=== PATIENT | female | born 1955 | race Caucasian/White ===

== ENCOUNTER → 2018-12-04 14:55 | Outpatient (CLI) | payer MEDICAID, SELFPAY ==
[2018-12-04 16:16] LABS: Absolute Lymphocyte Count 0.88 X10^3/ul (0.83-4.51); Absolute Neutrophil Count 4.2 X10^3/uL (2.0-7.7); Basophil# 0.01 X10^3/uL; Basophil% 0.2 % (0-1); Eosinophil# 0.17 X10^3/uL; Hematocrit 36.9 % (37-47); Hemoglobin 11.8 g/dl (12.0-15.0); Lymphocyte # 0.88 X10^3/ul (4.0); Lymphocyte % 15.4 % (19-41); Mean Corpuscular Hgb 28.4 pg (27.0-32.0); Mean Corpuscular Volume 88.9 fL (81-99); Mean Platelet Vol. 10.4 fl (6.2-12.0); Monocyte# 0.49 X10^3/uL; Monocyte% 8.6 % (0-10); Neutrophil # 4.16 X10^3/uL (2.7-7.7); Neutrophil % 72.8 % (47-70); Platelet Count 257 K/mm3 (150-450); RBC Distribution Width CV 13.2 % (11.6-14.6); RBC Distribution Width SD 42.7 fl (35.1-43.9); Red Blood Count 4.15 M/mm3 (4.2-5.4); White Blood Count 5.7 K/mm3 (4.4-11.0)
[2018-12-04 16:18] LABS: POSITIVE COUNT NO; POSITIVE DIFFERENTIAL NO; POSITIVE MORPHOLOGY NO
[2018-12-04 16:27] LABS: AST(SGOT) 14 U/L (15-37); Alanine Aminotransfer ALT/SGPT 19 U/L (13-56); Alkaline Phosphatase 83 U/L (45-117); Anion Gap 10 (5-15); BUN 23 mg/dL (7-18); BUN/Creat Ratio 16.1 RATIO (10-20); Bilirubin, Direct < 0.05 mg/dL (0.00-0.30); Calcium,Total 8.3 mg/dL (8.5-10.1); Chloride 109 mmol/L (98-107); Cholesterol 240 mg/dL (200); Creatinine, Serum 1.43 mg/dL (0.55-1.02); EST Glomerular Filtration Rate 40 mL/min (>60); Est Glom Filt Rate - Afr Amer 48 mL/min (>60); Globulin 4.2 g/dL (2.2-4.2); Glucose 132 mg/dL (74-106); High Density Lipoprotein 44 mg/dL; Potassium 3.9 mmol/L (3.5-5.1); Protein, Total 7.2 g/dL (6.4-8.2); Sodium Level 144 mmol/L (136-145); Triglycerides 254 mg/dL; Very Low Density Lipoprotein 51 mg/dL (5-40)
[2018-12-07 05:06] LABS: HEPATITIS B SURFACE AG Negative (Negative); QNTFERON TB Mitogen Value > 10.00 IU/mL (.); QNTFERON TB Nil Value 0.05 IU/mL (.); QNTFERON TB1+ Ag Value 0.04 IU/mL (.); QNTFERON TB2+ Ag Value 0.04 IU/mL (.)
[2018-12-07 09:52] LABS: Hep B Surface Antibodies Non Reactive (.); Hep C Antibodies <0.1 s/co ratio (0.0-0.9); Hepatitis B Core Ab Total Negative (Negative); QNTIFERON TB Positive Criteria Negative (Negative)
== END ==
PROVIDERS: Family Provider Nurse Practitioner Family; PCP Nurse Practitioner Family; Referring Provider Nurse Practitioner Family; Visit Provider Nurse Practitioner Family
DX: L40.0 Psoriasis vulgaris (principal); Z79.899 Other long term (current) drug therapy
CPT/HCPCS: 36415; 80048; 80061; 80076; 85025; 86480; 86704; 86706; 86803; 87340

== ENCOUNTER → 2020-01-08 10:30 | Outpatient (CLI) | payer MEDICAID, SELFPAY ==
[2020-01-08 12:34] LABS: Absolute Lymphocyte Count 0.61 X10^3/uL (0.83-4.51); Absolute Neutrophil Count 2.8 X10^3/uL (2.0-7.7); Basophil# 0.02 X10^3/uL; Basophil% 0.5 % (0-1); Eosinophil# 0.12 X10^3/uL; Hematocrit 29.2 % (37-47); Hemoglobin 8.8 g/dL (12.0-15.0); Lymphocyte # 0.61 X10^3/ul (4.0); Lymphocyte % 15.4 % (19-41); Mean Corp Hgb Conc 30.1 g/dL (32-36); Mean Corpuscular Hgb 29.8 pg (27.0-32.0); Mean Platelet Vol. 11.4 fl (6.2-12.0); Monocyte# 0.42 X10^3/uL; Monocyte% 10.6 % (0-10); NRBC Flagged by Analyzer 0 % (0-5); Neutrophil # 2.78 X10^3/uL (2.7-7.7); Platelet Count 246 K/mm3 (150-450); RBC Distribution Width CV 13.9 % (11.6-14.6); RBC Distribution Width SD 49.7 fl (35.1-43.9); Red Blood Count 2.95 M/mm3 (4.2-5.4)
[2020-01-08 12:52] LABS: Anion Gap 6 (5-15); BUN 22 mg/dL (7-18); Calcium,Total 8.1 mg/dL (8.5-10.1); Chloride 116 mmol/L (98-107); EST Glomerular Filtration Rate 27 mL/min (>60); Est Glom Filt Rate - Afr Amer 32 mL/min (>60); Glucose 125 mg/dL (74-106); Potassium 4.3 mmol/L (3.5-5.1); Sodium Level 143 mmol/L (136-145)
== END ==
PROVIDERS: PCP Family Medicine; Visit Provider Family Medicine
DX: K26.6 Chronic or unspecified duodenal ulcer with both hemorrhage and perforation (principal); N18.3 Chronic kidney disease, stage 3 (moderate)
CPT/HCPCS: 36415; 80048; 85025

== ENCOUNTER → 2020-02-25 09:59 | Outpatient (CLI) | payer MEDICAID, SELFPAY ==
[2020-02-28 09:04] LABS: QNTFERON TB Mitogen Value > 10.00 IU/mL (.); QNTFERON TB Nil Value 0.03 IU/mL (.); QNTFERON TB1+ Ag Value 0.03 IU/mL (.); QNTFERON TB2+ Ag Value 0.03 IU/mL (.)
[2020-02-28 09:13] LABS: QNTIFERON TB Positive Criteria Negative (Negative)
== END ==
PROVIDERS: PCP Family Medicine; Referring Provider Dermatology; Visit Provider Dermatology
DX: L40.0 Psoriasis vulgaris (principal); Z79.899 Other long term (current) drug therapy
CPT/HCPCS: 36415; 86480

== ENCOUNTER → 2020-10-20 12:35 | Outpatient (CLI) | payer MEDICAID, SELFPAY ==
[2020-10-20 15:19] LABS: Absolute Lymphocyte Count 0.83 X10^3/uL (0.83-4.51); Absolute Neutrophil Count 4.1 X10^3/uL (2.0-7.7); Basophil# 0.03 X10^3/uL; Basophil% 0.5 % (0-1); Eosinophil# 0.47 X10^3/uL; Eosinophils% 7.9 % (0-5); Hemoglobin 10.3 g/dL (12.0-15.0); Lymphocyte # 0.83 X10^3/ul (0.83-4.51); Lymphocyte % 13.9 % (19-41); Mean Corp Hgb Conc 29.4 g/dL (32-36); Mean Corpuscular Hgb 26.9 pg (27.0-32.0); Mean Corpuscular Volume 91.4 fL (81-99); Mean Platelet Vol. 11.7 fl (6.2-12.0); Monocyte# 0.52 X10^3/uL; Monocyte% 8.7 % (0-10); NRBC Flagged by Analyzer 0 % (0-5); Neutrophil % 68.7 % (47-70); Platelet Count 242 K/mm3 (150-450); RBC Distribution Width CV 15.2 % (11.6-14.6); RBC Distribution Width SD 50.4 fl (35.1-43.9); Red Blood Count 3.83 M/mm3 (4.2-5.4)
[2020-10-20 15:38] LABS: AST(SGOT) 8 U/L (15-37); Alanine Aminotransfer ALT/SGPT 12 U/L (13-56); Albumin, Serum 3.4 g/dL (3.2-5.0); Alkaline Phosphatase 107 U/L (45-117); Anion Gap 9 (5-15); BUN 34 mg/dL (7-18); BUN/Creat Ratio 20.1 RATIO (10-20); Bilirubin, Direct 0.09 mg/dL (0.00-0.30); Calcium,Total 8.7 mg/dL (8.5-10.1); Chloride 108 mmol/L (98-107); Creatinine, Serum 1.69 mg/dL (0.55-1.02); EST Glomerular Filtration Rate 32 mL/min (>60); Est Glom Filt Rate - Afr Amer 39 mL/min (>60); Globulin 3.3 g/dL (2.2-4.2); Glucose 119 mg/dL (74-106); Potassium 3.9 mmol/L (3.5-5.1); Protein, Total 6.7 g/dL (6.4-8.2); Sodium Level 142 mmol/L (136-145)
[2020-10-20 15:47] LABS: Hepatitis B Surface Antibody Non-Reactive; Hepatitis B Surface Antigen Non-Reactive (Nonreactive)
[2020-10-23 04:07] LABS: QNTFERON TB Mitogen Value 1.83 IU/mL (.); QNTFERON TB Nil Value 0 IU/mL (.); QNTFERON TB1+ Ag Value 0 IU/mL (.); QNTFERON TB2+ Ag Value 0.02 IU/mL (.)
[2020-10-23 07:48] LABS: Hepatitis B Core Ab Total Negative (Negative); QNTIFERON TB Positive Criteria Negative (Negative)
== END ==
PROVIDERS: PCP Family Medicine; Referring Provider Physician Assistant Medical; Visit Provider Physician Assistant Medical
DX: L40.0 Psoriasis vulgaris (principal); Z79.899 Other long term (current) drug therapy
CPT/HCPCS: 36415; 80048; 80076; 85025; 86480; 86704; 86706; 87340

== ENCOUNTER → 2021-10-20 | Outpatient (CLI) | payer MEDICAID, SELFPAY ==
--- NOTE | 2021-10-20 18:14 | CT_ITS ---
We are attempting to reach an attending provider to discuss findings. An addendum with communication details will be sent when the communication is complete. EXAM: CT ABDOMEN WITHOUT INTRAVENOUS CONTRAST CLINICAL INDICATION: ruq mass TECHNIQUE: Helically acquired images were obtained of the abdomen without intravenous contrast. This CT exam was performed using one or more of the following dose reduction techniques: automated exposure control, adjustment of the mA and/or kV according to patient size, and/or use of iterative reconstruction technique. This report was created using [employer] technology. RADIATION DOSE: CTDIvol = 23.76 mGy, DLP = 824.95 mGy-cm COMPARISON: None. FINDINGS: LOWER THORAX: Normal heart size. Mild bilateral coronary artery calcifications. Minimal linear atelectasis or scarring in the right middle lobe and lingula. No significant pericardial effusion. LIVER: Unremarkable. Homogeneous. GALLBLADDER AND BILE DUCTS: Unremarkable. No calcified gallstones. No gallbladder distention or wall edema. No intra- or extrahepatic biliary ductal dilation. PANCREAS: Unremarkable. No focal cystic mass. SPLEEN: Unremarkable. Normal size without focal cystic or solid mass. ADRENALS: Unremarkable. No nodules. KIDNEYS AND URETERS: There is marked intrarenal right hydronephrosis, some dependent curvilinear moderate calcifications in the right kidney, and right renal pelvis and ureter dilatation, right renal pelvis is 3.2 cm AP, right ureter is at least 1.1 cm proximally and 1.3 cm at the pelvic brim. Unremarkable appearance of the left kidney. STOMACH AND BOWEL: No oral or rectal contrast is present. There is mild mixed density material in the stomach. No dilated small bowel. Mild-moderate stool in the proximal half the colon. Mild gas and diverticulosis in the descending colon. No focal inflammatory change. APPENDIX: Part of normal appendix is included. INTRAPERITONEAL SPACE: Unremarkable. No ascites or other fluid collection. No free air. BONES/JOINTS: Degenerative spine changes including marked disc space narrowing, vacuum disc, endplate sclerosis and mild spondylosis at L4-5 and to lesser extent at L3-4. Mild narrowing of the thecal sac at multiple levels including due to moderate annular disc bulge at L3-4. No suspicious lytic or blastic abnormality. SOFT TISSUES: Unremarkable. No discrete abdominal wall hernia. VASCULATURE: Unremarkable. Abdominal aorta is non-dilated. LYMPH NODES: No enlarged lymph nodes. CT/Abdomen without IV Contrast IMPRESSION: 1. Marked intrarenal and moderate extrarenal right hydronephrosis with multifocal nonobstructing calcific densities in the dilated renal calyces,. Suspicion of xanthogranulomatous pyelonephritis, pelvic CT is suggested to evaluate for distal right ureter obstruction. 2. No other suspicious findings. Electronically Signed: Deb Mckay MD at 6:45 EDT ,
== END | disposition home or self-care (01) ==
LOC: CT 18:11
PROVIDERS: PCP Family Medicine; Visit Provider Surgery
DX: R19.01 Right upper quadrant abdominal swelling, mass and lump (principal); R10.9 Unspecified abdominal pain
CPT/HCPCS: 74150

== ENCOUNTER → 2021-10-21 | Outpatient (CLI) | payer MEDICAID, SELFPAY ==
--- NOTE | 2021-10-21 10:26 | CT_ITS ---
STUDY: CT PELVIS WITHOUT CONTRAST REASON FOR EXAM: Female, 65 years old. right ureter stone RADIATION DOSAGE (If Supplied By Facility): CTDIvol = ( 28.21 ) mGy, DLP = ( 884.05 ) mGycm TECHNIQUE: Transaxial imaging of the pelvis was performed with oral contrast, and without intravenous administration of contrast material. Individualized dose optimization techniques were used for this CT. COMPARISON: CT of abdomen dated OCTOBER 20, 2021 FINDINGS: Moderate right hydroureter with a change/cluster of small stones maximally measuring 5.5 mm obstructing stone in the distal aspect of the ureter, several millimeters proximal to the UVJ. Reidentification of a 6 mm stone in the lower pole of the right kidney. Normal urinary bladder. Normal visualized small intestine. There are multiple colonic diverticula of the sigmoid colon consistent with chronic diverticulosis. There is no pelvic fluid. There is no pelvic mass lesion or lymphadenopathy. There is diffuse atherosclerotic calcification of the pelvic arteries with elongation and tortuosity. Normal abdominal wall. There are diffuse degenerative changes of the visualized lumbar spine. CT/Pelvis without IV Contrast IMPRESSION: 1. Moderate right hydroureter with a change/cluster of small stones maximally measuring 5.5 mm obstructing stone in the distal aspect of the ureter, several millimeters proximal to the UVJ. Electronically Signed: Lucas Hamilton MD at 11:09 EDT ,
== END | disposition home or self-care (01) ==
PROVIDERS: PCP Family Medicine; Referring Provider Surgery; Visit Provider Surgery
DX: N20.1 Calculus of ureter (principal); N13.30 Unspecified hydronephrosis
CPT/HCPCS: 72192

== ENCOUNTER 2021-11-04 09:17 | Day surgery (SDC) | payer MEDICAID, SELFPAY ==
--- NOTE | 2021-11-04 | LIP_PTH ---
PATIENT: FREDY CLAYTON LOC: [facility] [place] U#:[id number] AGE/SX: 65/F ROOM: RE11/04/[address]: Dr. Marco Antonio Samuel MD : [id number] BED: DIS: 11/04/2021 SPEC #: [id number] RECD: 11/04/21 13:01 STATUS: INDER REYasir #: [id number] VIRI: 11/04/21 00:[address]: Marco Antonio Samuel DEPT: SURGICAL PATHOLOGY RECD BY: Shai Murphy ENTERED: 11/04/21 13:01 SP TYPE: LIPOMA OTHR DR: Dr. Kandace Katz MD Tissues: Soft tissues, NOS Procedures: Surgery Specimen Level III HEADER OPERATION: Excision lipoma, upper quadrant PRE-OP DIAGNOSIS: Right upper quadrant abdominal mass TISSUE SUBMITTED: Right upper quadrant abdominal lipoma MICROSCOPIC DIAGNOSIS Right upper quadrant abdominal lipoma, excision: Mature adipose tissue, consistent with lipoma. SJ:alexia 11/05/2021 MICROSCOPIC DESCRIPTION Slides are reviewed. GROSS DESCRIPTION Received in fixative is one container labeled with the patient's name and designated right upper quadrant abdominal lipoma. The specimen consists of an irregular piece of adipose tissue measuring 15 x 14 x 4 cm. The external surface is inked. Sections reveal yellow adipose cut surfaces without areas of hemorrhage, necrosis or cystic degeneration. Plant And Equipment Worker sections are submitted in three cassettes. / ASA:alexia 11/04/2021 TC:1 CPT: 26155
[2021-11-04] MEDS: Lactated Ringers 1,000 ML 15 ML IV (09:54)
[2021-11-04 09:55] VITALS: BP 142/90; PULSE 73; RESP 17; TEMP 36.9; O2SAT 97; BMI 45.6
--- NOTE | 2021-11-04 10:20 | PCM.HP.BLA ---
History and Physical Date of Admission: 11/04/21 Intake Intake Visit Reasons: Discuss CT and plan for lipoma removal Chief Complaint: Discuss CT and plan for lipoma removal [place] [employer] Operator Required: No Is patient in pain?: No Allergies Iodinated Contrast Media Allergy (Mild, Verified 10/29/21 09:32) rash codeine Adverse Reaction (Mild, Verified 10/29/21 09:32) gi upset morphine Adverse Reaction (Mild, Verified 10/29/21 09:32) gi upset Medications allopurinol 100 mg tablet tablet PO 10/13/21 [History Confirmed 10/29/21] cholecalciferol (vitamin D3) 125 mcg (5,000 unit) capsule 125 mcg PO BID cap 10/13/21 [History Confirmed 10/29/21] ferrous sulfate 325 mg (65 mg iron) tablet 325 mg PO BID 10/13/21 [History Confirmed 10/29/21] furosemide 20 mg tablet ea PO 10/13/21 [History Confirmed 10/29/21] ixekizumab 80 mg/mL subcutaneous auto-injector ml SUBCUT 10/13/21 [History Confirmed 10/29/21] pantoprazole 40 mg tablet,delayed release ea PO 10/13/21 [History Confirmed 10/29/21] potassium citrate 10 mEq (1,080 mg) tablet,extended release tablet PO 10/13/21 [History Confirmed 10/29/21] sodium bicarbonate 650 mg tablet 650 mg PO DAILY tab 10/13/21 [History Confirmed 10/29/21] PFSH Medical History Edema Fatigue GERD (gastroesophageal reflux disease) History of uterine leiomyoma Hydronephrosis, right Right ureteral calculus Stage 5 chronic kidney disease Surgical History (Updated 10/29/21 @ 09:31 by Tuesday) History of colonoscopy History of hysterectomy History of ureter stent Hx of foot surgery Family History Father Diabetes Hypertension Cancer skin Mother Hypertension Brother Colon cancer Social History Smoking Status: Former smoker how long ago did patient quit smokin years HPI HPI HPI: FREDY CLAYTON, is a 65 F who presents to the office today for follow-up after CT scan. The patient has right upper quadrant mass that is firm and bothering her. She says it is causing a lot of pain. She had CT scan which shows this is likely a lipoma but she also had obstructing distal right ureteral stones. She went to another hospital had a stent placed. ROS General General: No weight change or fatigue HEENT HEENT: No difficulty swallowing Endo Endocrine: No thyroid disease Musc Musculoskeletal: No back problems or arthritis Cardio Cardiovascular: No pacemaker, heart disease, atrial fibrillation, high blood pressure, heart attack, heart stent, palpitations or chest pain Psych Psychiatric: No depression or anxiety Resp Respiratory: No shortness of breath, No cough, No COPD, No asthma and No emphysema Gastro Gastrointestinal: Yes abdominal pain, No nausea or vomiting, No diarrhea, No constipation, No blood in stool, No acid reflux, No hemorrhoids, No ulcers, No gallbladder problem and No black,tarry stools Torres Hematologic: No blood thinners Exam Const General: cooperative Orientation: alert and oriented x3 HENMT Head: normal to inspection Neck Neck: normal visual inspection and full ROM Chest Chest palpation & inspection: normal inspection of the chest Resp Effort & Inspection: normal respiratory effort Auscultation: clear to auscultation bilaterally Cardio Rate: regular rate Rhythm: regular rhythm GI Inspection: non-distended Palpation: soft and nontender Musc Other: Subcutaneous mass in the right quadrant Skin General: no rashes or lesions noted Neuro General: patient alert and patient oriented x3 Extrem General: full ROM Psych Appearance: grossly normal Mental Status: mental status grossly normal Assessment and Plan Assessment and Plan (1) RUQ abdominal mass: Status: Acute Plan - Dr. Marco Antonio Samuel MD: Patient has a right upper quadrant subcutaneous mass. I performed a CT scan which did not show any hernia. Patient likely has a large lipoma in the right upper quadrant. It measures approximately 15 cm in diameter. I recommend removing this in the operating room under general anesthesia. I discussed the risks of bleeding and infection and seroma formation. Patient understands all the risks. All questions were answered. Marco Antonio Samuel MD Pager: [facility] [address] [place] [address], [address] [place] [address] Office: I have re-examined the patient. There are no clinical changes since date of exam.
[2021-11-04] MEDS: Cefazolin 2 GM in 0.9% Normal Saline 100 ML IV (10:45)
[2021-11-04 11:32] VITALS: BP 128/82; BP 142/90; PULSE 69; RESP 16; TEMP 36.9; O2SAT 93
--- NOTE | 2021-11-04 11:43 | OP.PCM_ITS ---
Problems Associated Problem List Diagnoses (1) RUQ abdominal mass: Report of Operation Date of Procedure: 11/04/21 Pre-Operative Diagnosis: Right upper quadrant mass Post-Operative Diagnosis: Same Surgery/Procedure Performed:: Excision of subcutaneous mass of the right upper quadrant Specimen's removed: Right upper quadrant subcutaneous mass Description of Procedure: Patient was brought back to the operating room and general anesthesia induced. The right upper quadrant was prepped and draped in usual sterile fashion. An incision was marked and then injected with local anesthetic. An incision was made with scalpel and deepened to the subcutaneous tissue. The lipoma was bluntly dissected free and excised. It measured 15 cm diameter. The cavity was irrigated and suctioned dry and hemostasis was obtained using electrocautery. The incision was then closed with interrupted 3- 0 Vicryl suture and running 4-0 Monocryl suture. Dermabond was applied. Patient was then awakened and taken to PACU in stable condition. Admit VTE Documentation VTE Mechan Device Prophylaxis: SCD's
[2021-11-04 11:45] VITALS: BP 138/78; BP 142/90; PULSE 57; RESP 16; O2SAT 95
--- NOTE | 2021-11-04 11:48 | EX.PCM.DISCH ---
Discharge Instructions Procedure General Surgery Diet Discharge Diet: Light diet - advance as tolerated Activity Discharge Activity: May Drive May shower in (days): 1 Lifting Restrictions: none Dressing / Incision Call your doctor if your incision/area has: Continuous Slow Oozing, Sudden Increased Bleeding, Increased Pain/ Swelling, Increased Redness, Foul Smelling Discharge and Swelling at the incision site Call your doctor if you observe: Fever of 101 or Higher Suture Line Care: Avoid Pulling/Pushing and Avoid Pinching/Bending Cleanse incision/area with: Soap & Water Follow Up Care Please Follow Up With: Marco Antonio Samuel MD When: Please call to schedule 2 week follow up appointment. [phone] Test Results: Test results from this visit will be discussed in further detail at your follow-up appointment, if applicable. Discharge Plan Admission Attending Provider: Marco Antonio Samuel Primary Care Provider: Kandace Katz Instructions Additional Instructions / Restrictions: Tylenol and Ibuprofen for pain Discharge Orders/Prescriptions Prescriptions: No Action potassium citrate 10 mEq (1,080 mg) tablet extended release 20 meq PO TID RF: 0 sodium bicarbonate 650 mg tablet 650 mg PO TID RF: 0 furosemide 20 mg tablet 20 mg PO PRN PRN (Reason: Edema) RF: 0 allopurinol 100 mg tablet 100 mg PO DAILY RF: 0 pantoprazole 40 mg tablet,delayed release (DR/EC) 40 mg PO DAILY RF: 0 Taltz Autoinjector 80 mg/mL auto-injector 80 mg subcut QMONTH RF: 0 cholecalciferol (vitamin D3) 125 mcg (5,000 unit) capsule 125 mcg PO BID RF: 0 ferrous sulfate 325 mg (65 mg iron) tablet 325 mg PO BID RF: 0 Referrals / Follow Up: Kandace Katz MD [Primary Care Provider] - Disposition Disposition (needs filled in before D/C Order can be placed): Home, Self Care
[2021-11-04 12:00] VITALS: BP 130/80; BP 142/90; PULSE 59; RESP 16; O2SAT 94
[2021-11-04 12:25] VITALS: BP 139/80; BP 142/90; PULSE 57; RESP 16; TEMP 36.5; O2SAT 96
[2021-11-04 13:04] VITALS: BP 128/62; BP 142/90; PULSE 62; RESP 16; O2SAT 98
== END 2021-11-04 13:05 | disposition home or self-care (01) ==
LOC: SDC 09:17 → AC 09:18
PROVIDERS: PCP Family Medicine; Referring Provider Surgery; Visit Provider Surgery
PROC: (CPT 15830; principal; 2021-11-04 10:45)
DX: D17.39 Benign lipomatous neoplasm of skin and subcutaneous tissue of other sites (principal); N18.5 Chronic kidney disease, stage 5; Z91.041 Radiographic dye allergy status; Z87.891 Personal history of nicotine dependence; K21.9 Gastro-esophageal reflux disease without esophagitis
CPT/HCPCS: 15830; 00400; 87426; 88304; J7120; J2405

== ENCOUNTER → 2022-06-10 | Outpatient (CLI) | payer MEDICARE, MEDICAID, SELFPAY ==
--- NOTE | 2022-06-10 11:05 | RAD_ITS ---
STUDY: X-RAY CHEST REASON FOR EXAM: Female, 66 years old. COUGH TECHNIQUE: PA and lateral views of the chest. COMPARISON: None. FINDINGS: The lungs are clear and expanded. There is no demonstrated pleural abnormality. Normal size heart. Normal mediastinum and jeanne. Normal visualized pulmonary arteries. Normal visualized aortic arch and descending thoracic aorta. There is demineralization of the osseous structures. There are diffuse degenerative changes of the visualized thoracic spine. Normal visualized ribs, clavicles, and shoulders. There is no demonstrated abnormality of the visualized soft tissue structures of the upper abdomen. RAD/Chest PA and Lateral IMPRESSION: Degenerative changes, as described above. No demonstrated acute cardiopulmonary process. Electronically Signed: Jaison Sanford MD at 9:23 EST ,
== END | disposition home or self-care (01) ==
PROVIDERS: PCP Family Medicine; Referring Provider Family Medicine; Visit Provider Family Medicine
DX: J45.909 Unspecified asthma, uncomplicated (principal); R05.9 Cough, unspecified
CPT/HCPCS: 71046

== ENCOUNTER → 2022-10-14 | Outpatient (CLI) | payer MEDICARE, MEDICAID, SELFPAY ==
--- NOTE | 2022-10-14 09:07 | BI_ITS ---
MAMMOGRAPHY - BILATERAL DIAGNOSTIC REASON FOR EXAM: Female, 66 years old. Painful lump at the 2:00 position of the left breast following a fall. PERTINENT HISTORY: Non-contributory. TECHNIQUE: Digital bilateral breast amanda (3D mammographic acquisition) in the CC and MLO projections. 2-D mediolateral oblique (MLO) and craniocaudad (CC) views of both breasts were obtained. CAD: Full Field Digital Mammography with Computer Added Detection was performed. COMPARISON: No comparison mammograms available at this time. If any prior films become available, an addendum to this report can be generated. FINDINGS: Breast Composition: There are scattered areas of fibroglandular density. There are no dominant masses or suspicious calcifications. Asymmetry of breast tissue were more breast tissue is seen in the upper outer aspect of the left breast as compared to the right side. This corresponds to the palpable area. Bilateral secretory calcifications. Benign-appearing secretory calcifications. No other significant abnormalities are identified. BI/DIAG MAMM W/CAD, BILAT IMPRESSION: Breast asymmetry were more breast tissue is seen in the upper outer quadrant of the left breast corresponding to the area of trauma. Correlation with ultrasound is recommended. ASSESSMENT CATEGORY: BIRADS Category 0: Incomplete. Need additional imaging evaluation. A letter regarding these results will be sent to the patient by the facility within 30 days. Approximately 10% of breast cancers are not detected by mammography. A normal mammogram should not delay biopsy of a clinically suspicious abnormality. Electronically Signed: Liborio Lombardo MD at 12:12 EDT ,
--- NOTE | 2022-10-14 09:07 | US_ITS ---
STUDY: ULTRASOUND BREAST - LEFT REASON FOR EXAM: Female, 66 years old. Palpable lump left breast. TECHNIQUE: Axial and longitudinal images of the LEFT breast were performed with a high resolution ultrasound transducer. # OF IMAGES: 25 COMPARISON: Comparison is made with prior mammogram done earlier in the day. FINDINGS: LEFT Breast: The palpable lump corresponds to dense parenchymal tissue. 3 small adjacent cysts are seen. The largest measures 8 mm x 7 mm x 4 mm. US/Breast Limited Unilateral IMPRESSION: 3 subcentimeter cysts are seen in the region of the palpable lump. ASSESSMENT CATEGORY: BIRADS Category 2: Benign. A letter regarding these results will be sent to the patient by the facility within 30 days. Electronically Signed: Liborio Lombardo MD at 12:13 EDT ,
== END | disposition home or self-care (01) ==
LOC: OPBI 09:04
PROVIDERS: PCP Family Medicine; Referring Provider Family Medicine; Visit Provider Family Medicine
DX: N64.4 Mastodynia (principal)
CPT/HCPCS: 76642; 77062; 77066; G0279

== ENCOUNTER → 2022-10-27 | Outpatient (CLI) | payer MEDICARE, MEDICAID, SELFPAY ==
[2022-10-29 15:08] LABS: Hepatitis B Core Ab Total Negative (Negative); QNTFERON TB Mitogen Value > 10.00 IU/mL (.); QNTFERON TB Nil Value 0.01 IU/mL (.); QNTFERON TB1+ Ag Value 0.03 IU/mL (.); QNTFERON TB2+ Ag Value 0.01 IU/mL (.); QNTIFERON TB Positive Criteria Negative (Negative)
== END | disposition home or self-care (01) ==
PROVIDERS: PCP Family Medicine; Referring Provider Physician Assistant Medical; Visit Provider Physician Assistant Medical
DX: L40.0 Psoriasis vulgaris (principal); Z79.899 Other long term (current) drug therapy
CPT/HCPCS: 36415; 86480; 86704

== ENCOUNTER → 2023-06-25 | Outpatient (CLI) | payer MEDICARE, SELFPAY ==
--- OUTSIDE RECORDS SUMMARY | 2023-06-25 07:41 | XMS RPT_ITS | CCD ---
Author Name Unknown Address [address] [place] [address] Organization [facility] Care Team Providers Care Fleet Salesperson Name Role Phone LORENA BEASLEY Attending Unavailable MIEDEL, KANDACE E Primary Care Unavailable FERNANDO TO Attending Unavailable MIEDEL, KANDACE E Primary Care Unavailable FERNANDO TO Attending Unavailable MIEDEL, KANDACE E Primary Care Unavailable Miedel, Kandace E Primary Care Provider Unavailab le Miedel, Kandace E Primary Care Provider Unavailab le SAVANNA LACEY Admitting Unavailable SAVANNA LACEY Referring Unavailable MIEDEL, KANDACE E Primary Care Unavailable MIEDEL, KANDACE E Primary Care Unavailable MIEDEL, KANDACE E Primary Care Unavailable HUSEYIN, MESSI Attending Unavailable HUSEYIN, MESSI Admitting Unavailable MIEDEL, KANDACE E Primary Care Unavailable HUSEYIN, MESSI Attending Unavailable HUSEYIN, MESSI Admitting Unavailable Unavailable Primary Care Provider UnavailKandace Calero MD Primary Care Provider ELIAS SEGAL Admitting UnavailELIAS Levine Attending Unavailramana e PORSHA TRAMMELL Attending Unavailable MIEDEL, KANDACE E Primary Care Unavailable PORSHA TRAMMELL Admitting Unavailable PORSHA TRAMMELL Attending Unavailable MIEDEL, KANDACE E Primary Care Unavailable PORSHA TRAMMELL Attending Unavailable MIEDEL, KANDACE E Primary Care Unavailable MIEDEL, KANDACE E Primary Care Unavailable PORSHA TRAMMELL Referring Unavailable PORSHA TRAMMELL Attending Unavailable MIEDEL, KANDACE E Primary Care Unavailable ALISHA NICKERSON MD Primary Care Unava ilable MIEDEL, KANDACE Consulting Unavailable BUCKTOWARSINGALISHA MD Attending Unava ilable BUCKTOWARSING, ALISHA SAHU Admitting Unava ilable PROVIDER, UNKNOWN Consulting Unavailable PROVIDER, UNKNOWN Consulting Unavailable MIEDEL, KANDACE Consulting Unavailable BUCKTOWARSINGALISHA MD Attending Unava ilable BUCKTOWARSINALISHA Mooney MD Admitting Unava ilable BUCKTOWARSINALISHA Mooney MD Primary Care Unava ilable PROVIDER, UNKNOWN Consulting Unavailable PROVIDER, UNKNOWN Consulting Unavailable BUCKTOWARSINALISHA Mooney MD Attending Unava ilable BUCKTOWARSINGALISHA MD Admitting Unava ilable BUCKTOWARSING, ALISHA SAHU Primary Care Unava ilable MIEDEL, KANDACE Consulting Unavailable PROVIDER, UNKNOWN Consulting Unavailable PROVIDER, UNKNOWN Consulting Unavailable MIEDEL, KANDACE Consulting Unavailable MIEDEL, KANDACE Referring Unavailable DALE MIR DO Admitting Unavailable DALE MIR DO Primary Care Unavailable DALE MIR DO Attending Unavailable PROVIDER, UNKNOWN Consulting Unavailable PROVIDER, UNKNOWN Consulting Unavailable ALISHA NICKERSON MD Primary Care Unava ilable MIEDEL, KANDACE Consulting Unavailable BUCKTOWARSINALISHA Mooney MD Attending Unava ilable BUCKTOWARSING, ALISHA SAHU Admitting Unava ilable PROVIDER, UNKNOWN Consulting Unavailable PROVIDER, UNKNOWN Consulting Unavailable Allergies Allergy Classification Reported Allergen(s) Allergy Type Date of Onset Reaction(s) Facility (18 sources) Codeine; Translations: [Unknown] Drug Allergy 9 GI Intolerance [facility] Repository (14 sources) Morphine; Translations: [MORPHINE] Drug Allergy 9 GI Intolerance [facility] (13 sources) Ct: Iodinated Contrast- Oral And Iv Dye; Translations: [CT: IODINATED CONTRAST- ORAL AND IV DYE] Propensity to adverse reactions to drug 9 Hives [facility] (1 source) Latex; Translations: [LATEX] Propensity to adverse reactions to drug (disorder) 3 [facility] Repository (1 source) GADOLINIUM-CONT AINING CONTRAST MEDIA; Translations: [GADOLINIUM-CON TAINING CONTRAST MEDIA] Propensity to adverse reactions to drug (disorder) 3 [facility] Repository (1 source) WOOL; Translations: [WOOL] Propensity to adverse reactions to drug (disorder) [facility] Repository (1 source) Contrast media Drug allergy (disorder) [facility] Repository (1 source) Morphine Drug Allergy [facility] Repository Medications Current Medications Medication Drug Class(es) Dates Sig (Normalized) Sig (Original) oxyCODONE hydrochloride 5 mg oral tablet (2 sources) Opioid Agonist Start: 06-22-2019 End: 06-26-2019 take 1 tablet by mouth every four hours as needed for pain oxyCODONE (ROXICODONE) 5 MG immediate release tablet Indications: Postoperative pain Take 1 (one) tablet (5 mg total) by mouth every 4 (four) hours as needed for pain (Days supply per fill: 5) . 12 tablet 0 06/23/2019 06/26/2019 Active pantoprazole 40 mg delayed release oral tablet (15 sources) Proton Pump Inhibitor Start: 07-29-2020 End: 08-28-2020 take 1 tablet by mouth once daily pantoprazole (PROTONIX) 40 MG tablet Take 1 (one) tablet (40 mg total) by mouth daily . 30 tablet 12 07/29/2020 Active Completed/Discontinued Medications Medication Drug Class(es) Dates Sig (Normalized) Sig (Original) acetaminophen 325 mg oral tablet (3 sources) Start: 07-29-2020 End: 07-29-2020 take 1 tablet by mouth every six hours as needed acetaminophen (TYLENOL) tablet 650 mg Problems Active Problems Problem Classification Problem Date Documented Da te Episodic/Chronic Acute and unspecified renal failure (2 sources) Acute injury of kidney; Translations: [Acute kidney failure, unspecified] 06-16-2019 Episodic Acute and unspecified renal failure (10 sources) Acute injury of kidney; Translations: [VICKI (acute kidney injury)] 06-16-2019 Calculus of urinary tract (20 sources) Kidney stone; Translations: [Calculus in urethra] Onset: 07-07-2022 06-16-2019 Episodic Esophageal disorders (1 source) Gastro-esophageal reflux disease with esophagitis; Translations: [Gastroesophageal reflux disease with esophagitis and hemorrhage] Chronic Gastroduodenal ulcer (except hemorrhage) (12 sources) Duodenal ulcer with perforation; Translations: [Chronic or unspecified duodenal ulcer with perforation] 06-16-2019 Chronic Genitourinary symptoms and ill-defined conditions (1 source) Urge incontinence; Translations: [Sensory urge incontinence] Onset: 11-30-2022 Chronic Immunizations and screening for infectious disease (1 source) Contact with and (suspected) exposure to other viral communicable diseases; Translations: [Contact with or exposure to viral disease] Episodic Other aftercare (2 sources) Surgical follow-up; Translations: [Follow-up examination, following other surgery] Episodic Residual codes; unclassified (2 sources) Finding related to awareness of diagnosis; Translations: [Other specified health status] 06-16-2019 Episodic Unclassified (10 sources) Finding related to awareness of diagnosis; Translations: [Patient denies medical problems] 06-16-2019 Unclassified (1 source) Wound finding; Translations: [Visit for wound check] Past or Other Problems Problem Classification Problem Date Documented Da te Episodic/Chronic Gastroduodenal ulcer (except hemorrhage) (12 sources) Duodenal perforation; Translations: [Perforation of intestine (nontraumatic)] Onset: 06-15-2019 06-15-2019 Episodic Other diseases of kidney and ureters (1 source) Hydronephrosis with renal and ureteral calculous obstruction; Translations: [Hydronephrosis concurrent with and due to calculi of kidney and ureter] Onset: 07-06-2022 Episodic Other gastrointestinal disorders (1 source) Perforation of intestine; Translations: [Bowel perforation (HCC)] Episodic Other nervous system disorders (1 source) Postoperative pain ; Translations: [Postoperative pain] Episodic Results Test Name Value Interpretation Reference Range Facil ity Vital Signs Date Time Vital Sign Value Performing Clinician Ophelia garcia 07-29-2020 13:20-0500 BP Diastolic 84 mm[Hg] [facility] 07-29-2020 13:20-0500 BP Systolic 130 mm[Hg] [facility] 07-29-2020 13:20-0500 Pulse (Heart Rate) 71 /min [facility] 07-29-2020 13:20-0500 Pulse Oximetry 99 % [facility] 07-29-2020 13:20-0500 Respiratory Rate 15 /min [facility] 07-29-2020 13:00-0500 Body Temperature 97.7 [degF] [facility] 07-29-2020 11:28-0500 BMI (Body Mass Index) 41.63 kg/m2 [facility] 07-29-2020 11:28-0500 Body weight 106.59 kg [facility] 07-29-2020 11:28-0500 Height 160 cm [facility] 02-21-2020 15:31-0400 BP Diastolic 86 mm[Hg] [facility] 02-21-2020 15:31-0400 BP Systolic 122 mm[Hg] [facility] 02-21-2020 15:31-0400 Pulse (Heart Rate) 61 /min [facility] 02-21-2020 15:31-0400 Pulse Oximetry 96 % [facility] 02-21-2020 15:31-0400 Respiratory Rate 16 /min [facility] 02-21-2020 15:15-0400 Body Temperature 97.2 [degF] [facility] 02-21-2020 13:48-0400 BMI (Body Mass Index) 40.03 kg/m2 [facility] 02-21-2020 13:48-0400 Body weight 102.51 kg [facility] 02-21-2020 13:48-0400 Height 160 cm [facility] 07-10-2019 10:09-0500 BMI (Body Mass Index) 40.51 kg/m2 [facility] 07-10-2019 10:09-0500 Body Temperature 98.29 [degF] [facility] 07-10-2019 10:09-0500 Body weight 103.74 kg [facility] 07-10-2019 10:09-0500 BP Diastolic 73 mm[Hg] [facility] 07-10-2019 10:09-0500 BP Systolic 115 mm[Hg] [facility] 07-10-2019 10:09-0500 Pulse (Heart Rate) 84 /min [facility] 07-10-2019 10:09-0500 Respiratory Rate 14 /min [facility] 06-23-2019 12:45-0500 Respiratory Rate 14 /min [facility] 06-23-2019 07:25-0500 Body Temperature 97.5 [degF] [facility] 06-23-2019 07:25-0500 BP Diastolic 60 mm[Hg] [facility] 06-23-2019 07:25-0500 BP Systolic 91 mm[Hg] [facility] 06-23-2019 07:25-0500 Pulse (Heart Rate) 62 /min [facility] 06-23-2019 07:25-0500 Pulse Oximetry 96 % [facility] 06-15-2019 18:39-0500 BMI (Body Mass Index) 38.97 kg/m2 [facility] 06-15-2019 18:39-0500 Body weight 99.79 kg [facility] 06-15-2019 18:39-0500 Height 160 cm Mak [facility] Encounters Encounter Date Encounter Type Care Provider Facility Start: 03-11-2023 End: 03-11-2023 ambulatory ALISHA SAHU [facility] Start: 01-11-2023 End: 01-11-2023 ambulatory PORSHA TRAMMELL Facility:[id number] Start: 11-30-2022 End: 11-30-2022 ambulatory PORSHA TRAMMELL Facility:[id number] Start: 09-03-2022 End: 09-03-2022 ambulatory [facility] Start: 08-26-2022 End: 08-26-2022 ambulatory PORSHA TRAMMELL Facility:[id number] Start: 08-09-2022 End: 08-09-2022 ambulatory PORSHA TRAMMELL Facility:[id number] Start: 07-06-2022 End: 07-07-2022 ambulatory ELIAS SEGAL Facility:[id number] Start: 07-05-2022 End: 07-06-2022 Emergency department patient visit [facility] Start: 05-07-2022 End: 05-07-2022 ambulatory ALISHA SAHU [facility] Start: 03-16-2022 End: 03-16-2022 ambulatory ALISHA SAHU [facility] Start: 11-12-2021 End: 05-19-2022 Subsequent hospital visit by physician Porsha Trammell MD Work Phone: [facility] Procedures Date Procedure Procedure Detail Performing Clinician Start: 09-03-2022 Urinalysis BHAVNISH B UCKTOWARSING Plan of Treatment Date Care Activity Detail Author Start: 02-25-2022 Influenza vaccination Sequential Influenza Vaccine (#1) [facility] Start: 2021 Fall risk assessment Falls Risk Assessment [facility] Start: 2021 Pneumococcal Vaccine: Age 65+ (1 - PCV) Pneumococcal Vaccine: Age 65+ (1 - PCV) [facility] Start: 10-26-2020 Esophagogastroduodenoscopy EGD [facility] Start: 08-05-2020 COVID-19 Vaccine (2 - Moderna series) COVID-19 Vaccine (2 - Moderna series) [facility] Start: 08-05-2020 COVID-19 Vaccine (2 of 2 - Moderna series) COVID-19 Vaccine (2 of 2 - Moderna series) [facility] Start: 07-29-2020 End: 07-29-2020 Hospital Encounter [facility] Endoscopy Immunizations Immunization Date Immunization Notes Care Provider Chichi mccormick 09-22-2018 influenza, seasonal, injectable Yves d Maryamether [facility] Payers Date Payer Category Payer Medicaid [id number] 2022 Unknown [id number] 2019 Medicaid U[employer] MANAGED MEDI CAID UHC MEDICAID COMMUNITY PLAN [id number] 2019-Present [id number] 2019 Medicaid [id number] 2019 Medicaid [employer]HC MANAGED MEDI CAID UHC MEDICAID COMMUNITY PLAN [id number] 2019-Present [phone] [address] [place] [address] [id number] 1956 Unknown [id number] 1955 Unknown [id number] 1956 Unknown [id number] 1956 Unknown [id number] 1956 Unknown [id number] 1956 Unknown [id number] 1956 Unknown [id number] 1956 Unknown [id number] Medicare [id number] Private Health Insurance [id number] Social History Date Type Detail Facility Start: 06-15-2019 End: 07-10-2019 Tobacco smoking status NHIS Former smoker [facility] Start: 07-10-2019 End: 08-05-2021 Alcohol intake Ex-drinker (finding) [facility] Start: 06-15-2019 Alcohol Comment rare [facility] Start: 1955 [facility] -2 (event) Unable to assess [facility] Start: 06-15-2019 End: 02-21-2020 Tobacco use and exposure Never used [facility] Exposure to SARS-CoV -2 (event) Not sure [facility] History of tobacco use Current smoker [facility] Clinical Notes 10-23-2021 to 01-11-2023 Note Date & Type Note Facility 01-11-2023 Note HNO ID: [id number] Author: Porsha Trammell MD Service: ? Author Type: Physician Type: Progress Notes Filed: 01/11/2023 3:35 PM Note Text: NEW PATIENT CONSULTATION The patient is here for follow-up of urgency urinary incontinence and kidney stone. The oxybutynin XR has helped tremendously. LAB RESULTS Creatinine Date Value Ref Range Status 10/23/2021 1.56 (H) 0.510 - 0.950 MG/DL Final Comment: Patients receiving either N-Acetylcysteine (NAC) or Metamizole prior to venipuncture, may have falsely depressed results. GLUCOSE UA (POCT) (mg/dL) Date Value 08/09/2022 Negative BILIRUBIN UA (POCT) (no units) Date Value 08/09/2022 Negative KETONE UA (POCT) (mg/dL) Date Value 08/09/2022 Negative SPECIFIC GRAVITY UA (POCT) (no units) Date Value 08/09/2022 1.020 HEMOGLOBIN/BLOOD UA (POCT) (no units) Date Value 08/09/2022 Large (A) PH UA (POCT) (no units) Date Value 08/09/2022 7.0 PROTEIN UA (POCT) (mg/dL) Date Value 08/09/2022 >=300 (A) UROBILINOGEN UA (POCT) (E.U./dL) Date Value 08/09/2022 0.2 NITRITE UA (POCT) (no units) Date Value 08/09/2022 Negative LEUKOCYTES UA (POCT) (no units) Date Value 08/09/2022 Small (A) COLOR UA (POCT) (no units) Date Value 08/09/2022 Yellow CLARITY UA (POCT) (no units) Date Value 08/09/2022 Clear ] REVIEW OF SYSTEMS (10) ALLERGIC See allergies listed above GENERAL: No unintentional weight loss, healthy appearing female in no distress RESPIRATORY: Negative for cough, wheezing or shortness of breath. CARDIOVASCULAR: No leg swelling/edema. 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 NEUROLOGIC:alert and oriented SKIN warm and dry PSYCHIATRIC: Normal affect and mood The remainder of the ROS was reviewed and is negative. MEDICATIONS: SKYRIZI 150 mg/mL injection oxybutynin ER (DITROPAN XL) 10 mg 24 hr tablet Take 1 tablet by mouth once daily. potassium citrate ER (UROCIT-K) 10 mEq (1,080 mg) Take 1,080 mg by mouth three times daily. Takes 2 tabs 3 x day sodium bicarbonate 650 mg tablet Take 650 mg by mouth three times daily. ferrous sulfate 325 mg (65 mg iron) tablet Take 325 mg by mouth twice daily. Cholecalciferol, Vitamin D3, 125 mcg (5,000 unit) cap Take 5,000 Units by mouth twice daily. Last dose 08/20/22 furosemide (LASIX) 20 mg tablet Take 20 mg by mouth as needed. allopurinol (ZYLOPRIM) 100 mg tablet Take 100 mg by mouth every morning. pantoprazole DR (PROTONIX) 40 mg tablet Take 40 mg by mouth every morning. ALLERGIES Allergen Reactions Codeine GI Upset Gadolinium-Containi* Hives Latex Rash Morphine GI Upset Wool Rash ACTIVE PROBLEM LIST Gastroesophageal Reflux Disease Vicki (Acute Kidney Injury) (Hcc) Morbidly Obese (Hcc) Calculus of Ureter Obesity, Class III, BMI >= 40 HISTORIES PAST MEDICAL HISTORY Diagnosis Date Chronic kidney disease, stage IV (severe) ([facility]) Dr. Nickerson Kidney stones PONV (postoperative nausea and vomiting) PAST SURGICAL HISTORY Procedure Laterality Date COLON SURGERY HX repair rupture CYSTOSCOPY several times ESWL F TOTAL ABDOMINAL HYSTERECTOMY FRACTURE SURGERY Right heel INCISION AND DRAINAGE OF WOUND (IANDD) HX upper left thigh LIPOMA (LARGE) upper abd. PT ED OBSTETRICS AND GYNECOLOGY History reviewed. No pertinent family history. SOCIAL HISTORY Social History Tobacco Use Smoking status: Former Packs/day: 0.50 Years: 20.00 Total pack years: 10.00 Types: Cigarettes Quit date: 2006 Years since quittin.5 Smokeless tobacco: Never Vaping Use Vaping Use: Never used Substance Use Topics Alcohol use: Yes Comment: very seldom Drug use: Never Ht 160 cm (5' 3 ) BMI 43.75 kg/m? PHYSICAL EXAM:(8) General Appearance: Well appearing, alert, in no acute distress, well-hydrated, well nourished.. Skin: Skin color, texture, turgor normal. Neck: no gross adenopathy; thyroid symmetric. Cardiovascular no peripheral edema Respiratory: Normal respritory effort no wheezing Musculoskeletal: nl gait and range of motion Extremities: No deformities, edema, cyanosis. Neurologic alert and oriented Psych nl affect and mood ASSESSMENT/PLAN: 1. Sensory urge incontinence - ICD9: 788.31, ICD10: N39.41 (primary diagnosis) Continue oxybutynin XR (started November 2022) - BLADDER SCAN - BLADDER SCAN 2. Kidney stone - ICD9: 592.0, ICD10: N20.0 Check KUB in 6 months - XR ABDOMEN 1V SUPINE 3. Recurrent urinary tract infections-continue self start Macrobid Porsha Trammell MD [facility] 11-30-2022 Note HNO ID: [id number] Author: Porsha Trammell MD Service: ? Author Type: Physician Type: Progress Notes Filed: 11/30/2022 2:56 PM Note Text: ESTABLISHED PATIENT OFFICE VISIT F/u kidney stones. No colic since her last visit. She does have UUI. My review of the KUB showed no stones. LAB RESULTS Creatinine Date Value Ref Range Status 10/23/2021 1.56 (H) 0.510 - 0.950 MG/DL Final Comment: Patients receiving either N-Acetylcysteine (NAC) or Metamizole prior to venipuncture, may have falsely depressed results. No results found for: PSA, PSASC GLUCOSE UA (POCT) (mg/dL) Date Value 08/09/2022 Negative BILIRUBIN UA (POCT) (no units) Date Value 08/09/2022 Negative KETONE UA (POCT) (mg/dL) Date Value 08/09/2022 Negative SPECIFIC GRAVITY UA (POCT) (no units) Date Value 08/09/2022 1.020 HEMOGLOBIN/BLOOD UA (POCT) (no units) Date Value 08/09/2022 Large (A) PH UA (POCT) (no units) Date Value 08/09/2022 7.0 PROTEIN UA (POCT) (mg/dL) Date Value 08/09/2022 >=300 (A) UROBILINOGEN UA (POCT) (E.U./dL) Date Value 08/09/2022 0.2 NITRITE UA (POCT) (no units) Date Value 08/09/2022 Negative LEUKOCYTES UA (POCT) (no units) Date Value 08/09/2022 Small (A) COLOR UA (POCT) (no units) Date Value 08/09/2022 Yellow CLARITY UA (POCT) (no units) Date Value 08/09/2022 Clear ] ALLERGIES Allergen Reactions Codeine GI Upset Gadolinium-Containi* Hives Latex Rash Morphine GI Upset Wool Rash MEDICATIONS: potassium citrate ER (UROCIT-K) 10 mEq (1,080 mg) Take 1,080 mg by mouth three times daily. Takes 2 tabs 3 x day sodium bicarbonate 650 mg tablet Take 650 mg by mouth three times daily. ferrous sulfate 325 mg (65 mg iron) tablet Take 325 mg by mouth twice daily. Cholecalciferol, Vitamin D3, 125 mcg (5,000 unit) cap Take 5,000 Units by mouth twice daily. Last dose 08/20/22 furosemide (LASIX) 20 mg tablet Take 20 mg by mouth as needed. allopurinol (ZYLOPRIM) 100 mg tablet Take 100 mg by mouth every morning. pantoprazole DR (PROTONIX) 40 mg tablet Take 40 mg by mouth every morning. ixekizumab (TALTZ AUTOINJECTOR) 80 mg/mL pen Inject 80 mg subcutaneously once every month. Last dose 07/28/22 (Patient not taking: Reported on 11/30/2022) REVIEW OF SYSTEMS GENERAL:no unintentional weight loss, malaise or fevers. NEUROLOGIC: pt is alert and oriented GASTROINTESTINAL: No nausea, vomiting, or diarrhea GENITOURINARY: No history of dysuria, frequency or incontinence MUSCULOSKELETAL: Negative for joint pain or swelling, back pain or muscle pain SKIN: Negative for lesions, rash, and itching. ACTIVE PROBLEM LIST Gastroesophageal Reflux Disease Vicki (Acute Kidney Injury) ([facility]) Morbidly Obese (Hcc) Calculus of Ureter Obesity, Class III, BMI >= 40 HISTORIES PAST MEDICAL HISTORY Diagnosis Date Chronic kidney disease, stage IV (severe) ([facility]) Dr. Nickerson Kidney stones PONV (postoperative nausea and vomiting) No family history on file. PAST SURGICAL HISTORY Procedure Laterality Date COLON SURGERY HX repair rupture CYSTOSCOPY several times ESWL F TOTAL ABDOMINAL HYSTERECTOMY FRACTURE SURGERY Right heel INCISION AND DRAINAGE OF WOUND (IANDD) HX upper left thigh LIPOMA (LARGE) upper abd. PT ED OBSTETRICS AND GYNECOLOGY SOCIAL HISTORY Social History Tobacco Use Smoking status: Former Packs/day: 0.50 Years: 20.00 Pack years: 10.00 Types: Cigarettes Quit date: 2006 Years since quittin.4 Smokeless tobacco: Never Vaping Use Vaping Use: Never used Substance Use Topics Alcohol use: Yes Comment: very seldom Drug use: Never PHYSICAL EXAMINATION General appearance: Well appearing, alert, in no acute distress, well-hydrated, well nourished Psych Alert and oriented to person, place and time Genitourinary: MALE EXAM: ASSESSMENT/PLAN: 1. Sensory urge incontinence - ICD9: 788.31, ICD10: N39.41 I will trial Oxybutynin XR 10 mg F/u in 6 weeks 2. Kidney stone- KERRY - OXYBUTYNIN CHLORIDE ER 10 MG TABLET,EXTENDED RELEASE 24 HR Porsha Trammell MD [facility] 11-30-2022 Note HNO ID: [id number] Author: RT Julian(R) Service: Radiology Author Type: Technologist Type: Progress Notes Filed: 11/30/2022 1:25 PM Note Text: Summary: XRAY Radiology Service Progress Note PATIENT NAME: Felipa Lima DATE OF SERVICE: November 30, 2022 TIME: 1:25 PM PATIENT IDENTITY VERIFICATION COMPLETED USING TWO (2) IDENTIFIERS: Name and Date of confirmed by patient verbally. FALL SCREENING: Has the patient had 2 falls in the last year or 1 fall with injury or currently using an Ambulatory Assistive Device (Walker, Cane, Wheelchair, Crutches, etc.)? No PATIENT GENDER DATA: Female. status: : No status: NO. PATIENT RELEVANT IMPLANT DATA REVIEWED: Not Applicable RADIOLOGY DEPARTMENT: General X-ray: Exam(s) Completed: Abdomen X-Ray: Abdomen PERIPHERAL IV DATA: Not applicable SIGNED BY: RT Julian(R) November 30, 2022 1:25 PM [facility] 08-26-2022 Note HNO ID: [id number] Author: LEBRON See Service: ? 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 Staffing EVENT SALES ASSISTANT: Rekha Bah APRN.EVENT SALES ASSISTANT SRNA: LEBRON See Performed by: LEBRON Indications and Patient Condition Indications for airway management: anesthesia and airway protection Preoxygenated: yes anesthesia circuit Patient position: sniffing Method: asleep Cricoid Pressure: No Manual In-Line Stabilization: No Difficult Mask: No Final Airway Details Final airway type: endotracheal airway Final Endotracheal Airway: ETT Cuffed: yes Successful intubation technique: direct laryngoscopy Devices used: intubating stylet Endotracheal tube insertion site: oral Blade: Ebenezer Blade size: #3 ETT size (mm): 7.0 Measured from: lips Measurement (cm): 21 Placement verified by: chest auscultation and capnometry Cormack-Lehane Classification: grade IIa - partial view of glottis Number of attempts at approach: 1 Failed airway: no Unrecognized esophageal intubation: no Airway not difficult SIGNATURE: LEBRON See PATIENT NAME: Felipa Lima DATE: August 26, 2022 TIME: 10:31 AM CSN: [id number] [facility] 08-25-2022 Note HNO ID: [id number] Author: Selene Tompkins RN Service: ? Author Type: Registered Nurse Type: Progress Notes Filed: 08/25/2022 3:12 PM Note Text: PRE-PROCEDURE INSTRUCTIONS TO PREPARE FOR YOUR PROCEDURE: Your arrival time for your procedure is 0745. Do NOT eat any solid foods after MIDNIGHT the night prior to your procedure - this includes gum or mints. You can drink clear liquids* up until 0545, which is 2 hours before your arrival time. *Clear liquids = water, carbohydrate drink (sports drink that is clear or yellow in color), Ensure Pre-Surgery (given by ALBERT or your ), fruit juice without pulp (apple/cranberry), clear tea, black coffee (no cream). NO ALCOHOL. Shower the morning of the procedure, put on clean clothes, and have clean sheets for your bed to help prevent infection after your procedure. Leave all valuables such as jewelry including rings, piercings, wallets, and purses at home. Wear comfortable, loose-fitting clothing. If you wear glasses or contacts, please bring a case. SPECIAL INSTRUCTIONS: If instructed, bring your first voided urine specimen with you. If you were provided skin preparation to use prior to your procedure, complete this as directed. If you were provided Ensure Pre-Surgery drink, you need to drink this at . This should be consumed quickly (in less than 5 minutes, rather than sipped over time) If you use crutches or a walker, bring them with you. If you have a home CPAP/BIPAP machine, bring it with you. If you were instructed to complete a fleets enema or bowel prep, complete as directed. Bring copy of Living Will/Power of Fan Engine Engineer. Do not smoke or chew. If you use tobacco, quit or at least cut down before surgery. Do not smoke or chew after midnight the day before your surgery. This effects bleeding, infection, healing, and so much more. Do not take any Diet or Herbal Supplements 2 weeks prior to your surgery date. Please notify your physician if there is any change in your physical condition such as a cold, cough, fever, sore throat, or skin irritation near the surgical site. Visitors under the age of 14 are restricted in the Surgery Center. UPON ARRIVAL: Access to [facility] ([facility]) is located on [address] [employer] parking is available for your convenience from 5am-5pm- there is a $5.00 charge for this service. Take the elevators directly inside the entrance to the 1st Floor Surgery Lobby. Sign in at the podium located to the left when you get off the elevators. A payment may be expected at the time of service. One visitor may come back to the preoperative area with you. The preoperative staff will be reviewing your medical history, please let them know if you prefer not to have a visitor with you during this time. Once you are ready for surgery, two visitors at a time are permitted in your preoperative room. PATIENT MEDICATION INSTRUCTIONS Please read below carefully for your personalized instructions. Medications: If you are on blood thinner or anticoagulants including aspirin, please confirm with your surgical team on when to stop these medications. Unless instructed differently by your surgical team, stay on all of your medications until your surgery. Pre-Surgery Med Instructions Medication Instructions potassium citrate ER (UROCIT-K) 10 mEq (1,080 mg) Do not take the morning of surgery sodium bicarbonate 650 mg tablet Do not take the morning of surgery ferrous sulfate 325 mg (65 mg iron) tablet Do not take the morning of surgery Cholecalciferol, Vitamin D3, 125 mcg (5,000 unit) cap Do not take the morning of surgery furosemide (LASIX) 20 mg tablet Do not take the morning of surgery allopurinol (ZYLOPRIM) 100 mg tablet Take morning of surgery with a sip of water, no other fluids pantoprazole DR (PROTONIX) 40 mg tablet Take morning of surgery with a sip of water, no other fluids ixekizumab (TALTZ AUTOINJECTOR) 80 mg/mL pen Follow Surgeon's instructions If you have any medication changes between receiving these instructions and your surgery date, please provide this updated information with the nurse who calls you the week day prior to your surgical procedure so we can update your list and provide you with updated instructions for the morning of your procedure. [facility] 08-25-2022 Note HNO ID: [id number] Author: Deborah Cutler APRN.CHOCOLATIER Service: ? Author Type: Nurse Practitioner Type: Progress Notes Filed: 08/25/2022 2:08 PM Note Text: Summary: dos meds PATIENT MEDICATION INSTRUCTIONS Please read below carefully for your personalized instructions. Medications: If you are on blood thinner or anticoagulants including aspirin, please confirm with your surgical team on when to stop these medications. Unless instructed differently by your surgical team, stay on all of your medications until your surgery. Pre-Surgery Med Instructions Medication Instructions potassium citrate ER (UROCIT-K) 10 mEq (1,080 mg) Do not take the morning of surgery sodium bicarbonate 650 mg tablet Do not take the morning of surgery ferrous sulfate 325 mg (65 mg iron) tablet Do not take the morning of surgery Cholecalciferol, Vitamin D3, 125 mcg (5,000 unit) cap Do not take the morning of surgery furosemide (LASIX) 20 mg tablet Do not take the morning of surgery allopurinol (ZYLOPRIM) 100 mg tablet Take morning of surgery with a sip of water, no other fluids pantoprazole DR (PROTONIX) 40 mg tablet Take morning of surgery with a sip of water, no other fluids ixekizumab (TALTZ AUTOINJECTOR) 80 mg/mL pen Follow Surgeon's instructions If you have any medication changes between receiving these instructions and your surgery date, please provide this updated information with the nurse who calls you the week day prior to your surgical procedure so we can update your list and provide you with updated instructions for the morning of your procedure. [facility] 08-09-2022 Note HNO ID: [id number] Author: Porsha Trammell MD Service: ? Author Type: Physician Type: Progress Notes Filed: 08/09/2022 4:23 PM Note Text: ESTABLISHED PATIENT OFFICE VISIT Follow-up right ureteral stone with infection. She had a right ureteral stent placed on July 06. She has been doing well since this time. She denies fevers or chills. She does still have some hematuria. LAB RESULTS Creatinine Date Value Ref Range Status 10/23/2021 1.56 (H) 0.510 - 0.950 MG/DL Final Comment: Patients receiving either N-Acetylcysteine (NAC) or Metamizole prior to venipuncture, may have falsely depressed results. GLUCOSE UA (POCT) (mg/dL) Date Value 08/09/2022 Negative BILIRUBIN UA (POCT) (no units) Date Value 08/09/2022 Negative KETONE UA (POCT) (mg/dL) Date Value 08/09/2022 Negative SPECIFIC GRAVITY UA (POCT) (no units) Date Value 08/09/2022 1.020 HEMOGLOBIN/BLOOD UA (POCT) (no units) Date Value 08/09/2022 Large (A) PH UA (POCT) (no units) Date Value 08/09/2022 7.0 PROTEIN UA (POCT) (mg/dL) Date Value 08/09/2022 >=300 (A) UROBILINOGEN UA (POCT) (E.U./dL) Date Value 08/09/2022 0.2 NITRITE UA (POCT) (no units) Date Value 08/09/2022 Negative LEUKOCYTES UA (POCT) (no units) Date Value 08/09/2022 Small (A) COLOR UA (POCT) (no units) Date Value 08/09/2022 Yellow CLARITY UA (POCT) (no units) Date Value 08/09/2022 Clear ] ALLERGIES Allergen Reactions Codeine GI Upset Gadolinium-Containi* Hives Latex Rash Morphine GI Upset Wool Rash MEDICATIONS: potassium citrate ER (UROCIT-K) 10 mEq (1,080 mg) Take 1,080 mg by mouth three times daily. sodium bicarbonate 650 mg tablet Take 650 mg by mouth once daily. ferrous sulfate 325 mg (65 mg iron) tablet Take 325 mg by mouth twice daily. Cholecalciferol, Vitamin D3, 125 mcg (5,000 unit) cap Take 5,000 Units by mouth twice daily. furosemide (LASIX) 20 mg tablet Take 20 mg by mouth as needed. allopurinol (ZYLOPRIM) 100 mg tablet Take 100 mg by mouth once daily. pantoprazole DR (PROTONIX) 40 mg tablet Take 40 mg by mouth once daily. ixekizumab (TALTZ AUTOINJECTOR) 80 mg/mL pen Inject 80 mg subcutaneously once every month. REVIEW OF SYSTEMS GENERAL: No unintentional weight loss, malaise or fevers. NEUROLOGIC: pt is alert and oriented GASTROINTESTINAL: No nausea, vomiting, or diarrhea GENITOURINARY: See history of present illness MUSCULOSKELETAL: Negative for joint pain or swelling, back pain or muscle pain SKIN: Negative for lesions, rash, and itching. Cardiac: No chest pain Pulmonary: No shortness of breath or cough ACTIVE PROBLEM LIST Gastroesophageal Reflux Disease Vicki (Acute Kidney Injury) (Hcc) Morbidly Obese (Hcc) Calculus of Ureter HISTORIES PAST MEDICAL HISTORY Diagnosis Date Chronic kidney disease, stage IV (severe) ([facility]) History reviewed. No pertinent family history. PAST SURGICAL HISTORY Procedure Laterality Date COLON SURGERY HX FRACTURE SURGERY VAGINAL HYSTERECTOMY SOCIAL HISTORY Social History Tobacco Use Smoking status: Former Types: Cigarettes Smokeless tobacco: Never Vaping Use Vaping Use: Never used Substance Use Topics Alcohol use: Never Drug use: Never PHYSICAL EXAMINATION General appearance: Well appearing, alert, in no acute distress, well-hydrated, well nourished Psych Alert and oriented to person, place and time Genitourinary: FEMALE EXAM: Exam NOT Indicated Cardiac: No peripheral edema Pulmonary: Normal respiratory effort ASSESSMENT/PLAN: 1. Calculus of ureter - ICD9: 592.1, ICD10: N20.1 She had a right ureteral stent placed for ureteral stone with infection. I will repeat a urine culture today. I will obtain her CT scan report from [facility]. - SURGICAL REQUEST - ELECTIVE (01/2020) - URINE CULTURE Porsha Trammell MD [facility] 07-07-2022 Note HNO ID: [id number] Author: Elias Segal MD Service: ? Author Type: Physician Type: Progress Notes Filed: 07/18/2022 9:32 PM Note Text: [facility] ESTABLISHED PATIENT OFFICE VISIT HISTORY OF PRESENT ILLNESS Felipa Lima is a 66 year old female who is here for follow up of ureteral stone and sepsis. Review of Systems The remainder of the ROS was reviewed and is negative. LAB Creatinine Date Value Ref Range Status 10/23/2021 1.56 (H) 0.510 - 0.950 MG/DL Final Comment: Patients receiving either N-Acetylcysteine (NAC) or Metamizole prior to venipuncture, may have falsely depressed results. No results found for: UGLUCPOC, UBILIPOC, UKETONPOC, USGPOC, UHBPOC, UPHPOC, UPROPOC, UUROPOC, UNITPOC, UWBCPOC, UCOLPOC, UCLARPOC] MEDICATIONS potassium citrate ER (UROCIT-K) 10 mEq (1,080 mg)Take 1,080 mg by mouth three times daily.Disp: Rfl: sodium bicarbonate 650 mg tabletTake 650 mg by mouth once daily.Disp: Rfl: ferrous sulfate (IRON) 325 mg (65 mg iron) tabletTake 325 mg by mouth twice daily.Disp: Rfl: Cholecalciferol, Vitamin D3, (D3-5000) 125 mcg (5,000 unit) capTake 5,000 Units by mouth twice daily.Disp: Rfl: furosemide (LASIX) 20 mg tabletTake 20 mg by mouth as needed.Disp: Rfl: allopurinol (ZYLOPRIM) 100 mg tabletTake 100 mg by mouth once daily.Disp: Rfl: pantoprazole DR (PROTONIX) 40 mg tabletTake 40 mg by mouth once daily.Disp: Rfl: ixekizumab (TALTZ AUTOINJECTOR) 80 mg/mL penInject 80 mg subcutaneously once every month.Disp: Rfl: ciprofloxacin HCl (CIPRO) 500 mg tabletTake 1 tablet by mouth twice daily for 10 days.Disp: 20 tabletRfl: 0 0 HISTORIES PAST MEDICAL HISTORY Diagnosis Date Chronic kidney disease, stage IV (severe) (HCC) PAST SURGICAL HISTORY Procedure Laterality Date COLON SURGERY HX FRACTURE SURGERY VAGINAL HYSTERECTOMY No family history on file. SOCIAL HISTORY Social History Tobacco Use Smoking status: Former Types: Cigarettes Smokeless tobacco: Never Vaping Use Vaping Use: Never used Substance Use Topics Alcohol use: Never Drug use: Never There were no vitals taken for this visit. Physical Exam ASSESSMENT AND PLAN: No problem-specific Assessment AND Plan notes found for this encounter. Ureteral stone and sepsis status post stent insertion. Patient to follow-up with Dr. Edilson Segal MD This note was partially created using voice recognition software and is inherently subject to errors including those of syntax and sound-alike substitutions which may escape proofreading. In such instances, original meaning may be extrapolated by contextual derivation. [facility] 07-07-2022 Note HNO ID: [id number] Author: Elias Segal MD Service: ? Author Type: Physician Type: Progress Notes Filed: 07/07/2022 6:00 PM Note Text: DISCHARGE SUMMARY PATIENT NAME: Felipa Lima ADMISSION DATE: (Not on file) DISCHARGE DATE:07/07/2022 ATTENDING PHYSICIAN: No att. providers found Code Status: Not on file Highest Readmission Risk Score: 7 The 30 day readmissions risk score is derived from an internally validated risk model which evaluates patient level characteristics, utilization history, medication orders and lab results up until the day of discharge. Patients with a score of 40 or above are considered highest risk for readmission. Specific patient level drivers will be listed at the bottom of the summary. CONSULTING TEAMS DURING HOSPITALIZATION: None REASON FOR HOSPITALIZATION: Recent sepsis was right ureteral stone and obstruction DIAGNOSIS: Active Problems: * No active hospital problems. * Resolved Problems: * No resolved hospital problems. * OPERATIONS DURING HOSPITALIZATION: Cystoscopy and right stent insertion PROCEDURES DURING HOSPITALIZATION: None HOSPITAL COURSE: Transitions of Care Critical Issues: None LABS AND PROCEDURES PENDING AT DISCHARGE: No pending results.@[email or web address]@ PATIENT CONDITION AT DISCHARGE: Stable DISCHARGE DISPOSITION: Home with Self Care INFORMATION PROVIDED TO PATIENT: WOUND/SURGICAL SITE CARE: None DIET: Resume pre-hospital diet ACTIVITY: None ALLERGIES Allergen Reactions Codeine GI Upset Gadolinium-Containi* Hives Latex Rash Morphine GI Upset Wool Rash DISCHARGE MEDICATION: Ciprofloxacin FUTURE APPOINTMENTS: Follow Up with Dr. Trammell Future Appointments Date Time Provider Department Center 07/20/2022 11:00 AM MD REYNALDO Robledo MD [facility] @[email or web address]@ The patient's risk for 30-day readmission is determined using the following contributing factors: Pt variables contributing to increased readmission risk: 30 Most Recent BUN Result 1 Insurance - Medicare The ADILSON, acting on behalf of the attending physician, has completed the substantive portion of the patient discharge encounter. SIGNATURE: Elias Segal MD DATE: July 07, 2022 TIME: 5:54 PM [facility] ESTABLISHED PATIENT OFFICE VISIT HISTORY OF PRESENT ILLNESS Felipa Lima is a 66 year old female who is here for follow up of . Review of Systems The remainder of the ROS was reviewed and is negative. LAB Creatinine Date Value Ref Range Status 10/23/2021 1.56 (H) 0.510 - 0.950 MG/DL Final Comment: Patients receiving either N-Acetylcysteine (NAC) or Metamizole prior to venipuncture, may have falsely depressed results. No results found for: UGLUCPOC, UBILIPOC, UKETONPOC, USGPOC, UHBPOC, UPHPOC, UPROPOC, UUROPOC, UNITPOC, UWBCPOC, UCOLPOC, UCLARPOC] MEDICATIONS potassium citrate ER (UROCIT-K) 10 mEq (1,080 mg)Take 1,080 mg by mouth three times daily.Disp: Rfl: sodium bicarbonate 650 mg tabletTake 650 mg by mouth once daily.Disp: Rfl: ferrous sulfate (IRON) 325 mg (65 mg iron) tabletTake 325 mg by mouth twice daily.Disp: Rfl: Cholecalciferol, Vitamin D3, (D3-5000) 125 mcg (5,000 unit) capTake 5,000 Units by mouth twice daily.Disp: Rfl: furosemide (LASIX) 20 mg tabletTake 20 mg by mouth as needed.Disp: Rfl: allopurinol (ZYLOPRIM) 100 mg tabletTake 100 mg by mouth once daily.Disp: Rfl: pantoprazole DR (PROTONIX) 40 mg tabletTake 40 mg by mouth once daily.Disp: Rfl: ixekizumab (TALTZ AUTOINJECTOR) 80 mg/mL penInject 80 mg subcutaneously once every month.Disp: Rfl: ciprofloxacin HCl (CIPRO) 500 mg tabletTake 1 tablet by mouth twice daily for 10 days.Disp: 20 tabletRfl: 0 0 HISTORIES PAST MEDICAL HISTORY Diagnosis Date Chronic kidney disease, stage IV (severe) (HCC) PAST SURGICAL HISTORY Procedure Laterality Date COLON SURGERY HX FRACTURE SURGERY VAGINAL HYSTERECTOMY No family history on file. SOCIAL HISTORY Social History Tobacco Use Smoking status: Former Types: Cigarettes Smokeless tobacco: Never Vaping Use Vaping Use: Never used Substance Use Topics Alcohol use: Never Drug use: Never There were no vitals taken for this visit. Physical Exam ASSESSMENT AND PLAN: No problem-specific Assessment AND Plan notes found for this encounter. ASSESSMENT/PLAN: 1. Ureteral stone - ICD9: 592.1, ICD10: N20.1 - YOUR FOLLOW-UP APPOINTMENTS Elias Segal MD This note was partially created using voice recognition software and is inherently subject to errors including those of syntax and sound-alike substitutions which may escape proofreading. In such instances, original meaning may be extrapolated by contextual derivation. [facility] 07-06-2022 Note HNO ID: [id number] Author: Jose Yanez APRN.EVENT SALES ASSISTANT Service: Anesthesiology Author Type: Nurse Bulb Packer Type: Anesthesia Procedure Notes Filed: 07/06/2022 8:32 PM Note Text: ANESTHESIOLOGY PROCEDURE NOTE Airway General Information Procedure Start Time/Medication Administration: 07/06/2022 8:24 PM Patient location during procedure: OR Timeout Performed Pre-procedure: timeout performed Consent Obtained: Yes Patient identity confirmed: arm band Staffing Anesthesiologist: Venancio Olivares DO EVENT SALES ASSISTANT: Jose Yanez APRN.EVENT SALES ASSISTANT Performed by: anesthesiologist Indications and Patient Condition Indications for airway management: anesthesia Preoxygenated: yes anesthesia circuit Patient position: sniffing Method: asleep Cricoid Pressure: Yes Manual In-Line Stabilization: No Difficult Mask: No Final Airway Details Final airway type: endotracheal airway Final Endotracheal Airway: ETT Cuffed: yes Successful intubation technique: direct laryngoscopy Devices used: intubating stylet Endotracheal tube insertion site: oral Blade: Fatima Blade size: #2 ETT size (mm): 7.0 Measured from: lips Measurement (cm): 21 Placement verified by: chest auscultation and capnometry Cormack-Lehane Classification: grade IIa - partial view of glottis Number of attempts at approach: 1 Failed airway: no Unrecognized esophageal intubation: no Airway not difficult SIGNATURE: Jose Yanez APRN.EVENT SALES ASSISTANT PATIENT NAME: Felipa Lima DATE: July 06, 2022 TIME: 8:31 PM CSN: [id number] [facility] 10-23-2021 Note [facility] [place] [facility] Summary Purpose Family History No Family History Records FoundNo Family History Records FoundNo Family History Records FoundNo Family History Records FoundNo Family History Records FoundNo Family History Records FoundNo Family History Records FoundNo Family History Records Found Advance Directives No Advanced Directives Records FoundDocuments on File Type Date Recorded Patient Therapy Tech Expl anation Advance Directives and Livin g Will 06/15/2019 7:08 PM Latest Code Status on File Code Status Date Activated Date Inactivated Comments Full Code 06/16/2019 3:23 AM Full Code - Unverified 06/15/2019 11:38 PM 06/16/2019 3:23 AM Documents on File Type Date Recorded Patient Therapy Tech Expl anation Advance Directives and Livin g Will 06/15/2019 7:08 PM Latest Code Status on File Code Status Date Activated Date Inactivated Comments Full Code 06/16/2019 3:23 AM Full Code - Unverified 06/15/2019 11:38 PM 06/16/2019 3:23 AM Documents on File Type Date Recorded Patient Therapy Tech Expl anation Advance Directives and Livin g Will 02/21/2020 7:08 PM Latest Code Status on File Code Status Date Activated Date Inactivated Comments Full Code 06/16/2019 3:23 AM 02/21/2020 12:59 PM Documents on File Type Date Recorded Patient Therapy Tech Expl anation Advance Directives and Livin g Will 07/29/2020 7:08 PM Latest Code Status on File Code Status Date Activated Date Inactivated Comments Full Code 06/16/2019 3:23 AM 02/21/2020 12:59 PM Documents on File Type Date Recorded Patient Therapy Tech Expl anation Advance Directives and Livin g Will 07/29/2020 7:08 PM Documents on File Type Date Recorded Patient Therapy Tech Expl anation Advance Directives and Livin g Will 02/21/2020 7:08 PM Latest Code Status on File Code Status Date Activated Date Inactivated Comments Full Code 06/16/2019 3:23 AM 02/21/2020 12:59 PM Code Status History Code Status Date Activated Date Inactivated Comments Full Code - Unverified 06/15/2019 11:38 PM 06/16/2019 3:23 AM Reason for Referral Status Reason Specialty Diagnoses / Procedures Referred By Contact Referred To Contact Pending Review Gastroenterology Diagnoses Follow-up examination, following other surgery Mika Augustin MD [address] [facility] [address] [place] [address] [facility] Prov Gastroenterolog y [address] [place] [address] History of Present Illness * Fernando To DO - 09/18/2019 2:18 PM EDT Unable to contact Needs GI referral documented in this encounter* Fernando To DO - 09/21/2019 3:11 PM EDT Unable to contact documented in this encounter* Chela Ruano DO - 02/04/2020 4:43 PM EDT Received [facility] page. Patient follows with surgery and has no-showed for multiple appointments and hasbeen difficult to reach. Her PCP is not at [facility] Medicine. Requested that page be directed to Surgery. Chela Ruano DO Internal Medicine, PGY3 Pager [phone] documented in this encounter* Mason Hinton MD - 06/23/2019 10:20 AM EST Mason Hinton MD [facility] Hospitalists DAILY PROGRESS NOTE Patient Name: Felipa Lima PCP: Kandace Katz MD Perpetual Assessment: Felipa Lima is a 63 y.o. female who who was transferred to [facility] for treatment of a perforated duodenal ulcer and infected right obstructing kidney stone. She had presented from home on 06/15/2019 with a 1-2 week complaint of flank pain that she had managed with NSAIDs. [facility] was consulted for medical management. Assessment and Plan Perforated duodenal ulcer with peritonitis and sepsis syndrome Per patient provided history associated with at least 2 weeks of NSAID use which is likely etiologyfor ulcer and presented with perforation and sepsis. -Had emergent exploratory laparotomy with abdominal lavage and Gadiel patch repair 06/16/2019 - UGI from 06/21 without leak. Starting oral intake and tolerating - management per General Surgery and planning DC on 06/23/2019 Right-sided nephrolithiasis History of recurrent stones, most recent in December 2018, presenting with 2 weeks of flank pain and VICKI -CT reportedly with evidence of mild hydronephrosis, edema and possible stones -Urology following with recommendations for repeat CT imaging and pt to follow- up with her primary urologist Hypernatremia, Hypokalemia, Hypophosphatemia, Hypocalcemia - had been NPO. Na 148 with free water deficit of ~ 2.6L on 06/20 -IVF changed to D5 1/2NS at 125ml/h with improvement - replace lytes - encourage oral intake Anemia - baseline Cr ~ 12.6 and decreased to 9s. Suspect multifactorial from acute blood loss anemia post operatively along with dilutional component from IVF. - no evidence of active bleed - follow Hb and transfuse as needed Acute kidney injury with hyperkalemia Suspected multifactorial, due to hypoperfusion, NSAID use, and probable ureteral obstruction -Serum creatinine peaked at 3.65 on 06/15/2019 and trending down and now at 2.38. No prior labs available, but suspect had CKD after staghorn calculus removal in past. -Continue to monitor as outpatient Code Status: Full code DVT Prophylaxis Heparin Subcutaneous Disposition and Comments DC per General Surgery CC / Reason for follow up: Perforated ulcer and right ureteral stone SUBJECTIVE: tolerating diet, though has occasional cramping. Denies dysuria. no vomiting. Denies chest pain or dyspnea. ROS: < >> The following system(s) were reviewed. Pertinent positive and negative findings are noted in the HPI. [x] Const [] Eyes [] ENT [x] Resp [x] CV [x] GI [] [] Neuro [x] Musc [x] Skin [x] Psych [x] Endo [] Allergy [x] Heme/Lymph PHYSICAL EXAMINATION: << >>>>> Temp: [97.3 F (36.3 C)-98.5 F (36.9 C)] 97.5 F (36.4 C) Heart Rate: [60-65] 62 Resp: [12-16] 14 BP: (90-106)/(57-70) 91/60 GENERAL: NAD. Flat in bed. Interactive. Ill-appearing. EYES: Conjunctiva and sclera clear. ENT: Hearing intact. CV: S1 S2 noted. No distended neck veins. RESP: Clear, no rales, rhonchi, wheezes. Unlabored. GI: Nondistended without noted tympany. Appropriately tender. Incision well approximated. NG tube in place. SKIN: Warm and dry NEURO: No focal deficits. PSYCH: Mood and affect are appropriate. Cooperative. I/O s last 3 shifts: I/O last 3 completed shifts: In: - Out: 90 [Drains:90] Reviewed 06/23/19 10:20 AM: [x] Laboratory [x] Transcriptions [x] Radiology [x] Microbiology [] Cardiology [x] Outside Records [x] Medications [] Family Time Spent/CCM Time: * Lorena Beasley MD - 06/23/2019 7:37 AM EST GENERAL SURGERY DAILY PROGRESS NOTE Patient Name: Felipa Lima MR #: [id number] Assessment and Plan: 63 y.o. female w/ PMH significant for nephrolithiasis and hysterectomy who presented with a week ofabdominal pain which acutely worsened on the day of presentation. CT showed small amount of free air in RUQ and R hydronephrosis. UGI confirmed perforation in 1st portion of duodenum. Perforated duodenal ulcer VICKI - S/p ex lap/gadiel patch 06/16 - UGI negative for leak - Tolerating soft diet - HWIV - PPI BID - PO pain meds - DVT ppx: SQH - Drain with serous OP, will plan to remove on discharge - UA grossly positive and mild R hydroureter, urology following, planning f/u CT - Stool H pylori negative - Home today. Will recheck chemistry in 1-2 weeks Subjective: Doing well, having bowel function, tolerating diet Objective: Temp: [97.3 F (36.3 C)-98.5 F (36.9 C)] 97.5 F (36.4 C) Heart Rate: [60-71] 62 Resp: [12-16] 12 BP: (90-106)/(57-70) 91/60 Gen: NAD Resp: unlabored CV: HDS Abd: soft, ATTP, ND, incision with coverlet in place, drain serous Ext: WWP Neuro: ARIN Beasley 06/23/19 Please contact surgical internal control manager energy economist at [phone] 5PM-6AM and weekends * Mason Hinton MD - 06/22/2019 4:40 PM EST Mason Hinton MD [facility] Hospitalists DAILY PROGRESS NOTE Patient Name: Felipa Lima PCP: Kandace Katz MD Perpetual Assessment: Felipa Lima is a 63 y.o. female who who was transferred to [facility] from [facility] for treatment of a perforated duodenal ulcer and infected right obstructing kidney stone. She had presented from home on 06/15/2019 with a 1-2 week complaint of flank pain that she had managed with NSAIDs. [facility] was consulted for medical management. Assessment and Plan Perforated duodenal ulcer with peritonitis and sepsis syndrome Per patient provided history associated with at least 2 weeks of NSAID use which is likely etiologyfor ulcer and presented with perforation and sepsis. -Had emergent exploratory laparotomy with abdominal lavage and Gadiel patch repair 06/16/2019 - UGI from 06/21 without leak. Starting oral intake and tolerating - management per General Surgery Right-sided nephrolithiasis History of recurrent stones, most recent in December 2018, presenting with 2 weeks of flank pain and VICKI -CT reportedly with evidence of mild hydronephrosis, edema and possible stones -Urology following with recommendations for repeat CT imaging and pt to follow- up with her primary urologist Hypernatremia, Hypokalemia, Hypophosphatemia, Hypocalcemia - had been NPO. Na 148 with free water deficit of ~ 2.6L on 06/20 -IVF changed to D5 1/2NS at 125ml/h with improvement - replace lytes - encourage oral intake Anemia - baseline Cr ~ 12.6 and decreased to 9s. Suspect multifactorial from acute blood loss anemia post operatively along with dilutional component from IVF. - no evidence of active bleed - follow Hb and transfuse as needed Acute kidney injury with hyperkalemia Suspected multifactorial, due to hypoperfusion, NSAID use, and probable ureteral obstruction -Serum creatinine peaked at 3.65 on 06/15/2019 and trending down and now at 2.38. No prior labs available, but suspect had CKD after staghorn calculus removal in past. -Continue to monitor Code Status: Full code DVT Prophylaxis Heparin Subcutaneous Disposition and Comments We will follow with you as needed. - possible DC on 06/23 if tolerating diet per General Surgery CC / Reason for follow up: Perforated ulcer and right ureteral stone SUBJECTIVE: tolerating diet. Had mild nausea after eating, but no vomiting. Denies chest pain or dyspnea. ROS: < >> The following system(s) were reviewed. Pertinent positive and negative findings are noted in the HPI. [x] Const [] Eyes [] ENT [x] Resp [x] CV [x] GI [] [] Neuro [x] Musc [x] Skin [x] Psych [x] Endo [] Allergy [x] Heme/Lymph PHYSICAL EXAMINATION: << >>>>> Temp: [97.8 F (36.6 C)-98.5 F (36.9 C)] 98.3 F (36.8 C) Heart Rate: [62-71] 63 Resp: [13-16] 14 BP: (90-110)/(56-75) 102/70 GENERAL: NAD. Flat in bed. Interactive. Ill-appearing. EYES: Conjunctiva and sclera clear. ENT: Hearing intact. CV: S1 S2 noted. No distended neck veins. RESP: Clear, no rales, rhonchi, wheezes. Unlabored. GI: Nondistended without noted tympany. Appropriately tender. Incision well approximated. NG tube in place. SKIN: Warm and dry NEURO: No focal deficits. PSYCH: Mood and affect are appropriate. Cooperative. I/O s last 3 shifts: I/O last 3 completed shifts: In: 26.1 [I.V.:26.1] Out: 110 [Drains:110] Reviewed 06/22/19 4:40 PM: [x] Laboratory [x] Transcriptions [x] Radiology [x] Microbiology [] Cardiology [x] Outside Records [x] Medications [] Family Time Spent/CCM Time: * Ramon Joiner MD - 06/22/2019 7:54 AM EST GENERAL SURGERY DAILY PROGRESS NOTE Patient Name: Felipa Lima MR #: [id number] Assessment and Plan: 63 y.o. female w/ PMH significant for nephrolithiasis and hysterectomy who presented with a week ofabdominal pain which acutely worsened on the day of presentation. CT showed small amount of free air in RUQ and R hydronephrosis. UGI confirmed perforation in 1st portion of duodenum. Perforated duodenal ulcer VICKI - S/p ex lap/gadiel patch 06/16 - UGI negative for leak - Tolerating clears, advance to soft diet - HWIV - PPI BID - PO pain meds - DVT ppx: SQH - Drain with serous OP, will plan to remove on discharge - UA grossly positive and mild R hydroureter, urology following, planning f/u CT - Stool H pylori negative - Home tomorrow Subjective: Doing well, having bowel function, tolerating diet Objective: Temp: [97.5 F (36.4 C)-98.2 F (36.8 C)] 98.2 F (36.8 C) Heart Rate: [63-81] 68 Resp: [12-15] 15 BP: (91-120)/(56-81) 91/56 Gen: NAD Resp: unlabored CV: HDS Abd: soft, ATTP, ND, incision with coverlet in place, drain serous Ext: WWP Neuro: ARIN Joiner 06/22/19 Pager: [phone] Dr. Beasley will be assuming care starting today Pager: [phone] Please contact surgical internal control manager energy economist at [phone] 5PM-6AM and weekends * Mason Hinton MD - 06/21/2019 11:00 AM EST Mason Hinton MD [facility] Hospitalists DAILY PROGRESS NOTE Patient Name: Felipa Lima PCP: Kandace Katz MD Perpetual Assessment: Felipa Lima is a 63 y.o. female who who was transferred to [facility] from [facility] for treatment of a perforated duodenal ulcer and infected right obstructing kidney stone. She had presented from home on 06/15/2019 with a 1-2 week complaint of flank pain that she had managed with NSAIDs. [facility] was consulted for medical management. Assessment and Plan Perforated duodenal ulcer with peritonitis and sepsis syndrome Per patient provided history associated with at least 2 weeks of NSAID use which is likely etiologyfor ulcer and presented with perforation and sepsis. -Had emergent exploratory laparotomy with abdominal lavage and Gadiel patch repair 06/16/2019 -NG tube was accidentally pulled out by pt. - Planning UGI on 06/21/2019 -Continue IV PPI therapy along with IV Zosyn x 4 doses - management per General Surgery Right-sided nephrolithiasis History of recurrent stones, most recent in December 2018, presenting with 2 weeks of flank pain and VICKI -CT reportedly with evidence of mild hydronephrosis, edema and possible stones -Urology following with recommendations for repeat CT imaging. Defer additional workup to them Hypernatremia - has been NPO. Na 148 with free water deficit of ~ 2.6L on 06/20 -IVF changed to D5 1/2NS at 125ml/h with gradual improvement - Na 147 on 06/21/2019 - follow Na . Anemia - baseline Cr ~ 12.6 and decreased to 9s. Suspect multifactorial from acute blood loss anemia post operatively along with dilutional component from IVF. - no evidence of active bleed - follow Hb and transfuse as needed Acute kidney injury with hyperkalemia Suspected multifactorial, due to hypoperfusion, NSAID use, and probable ureteral obstruction -Serum creatinine peaked at 3.65 on 06/15/2019 and trending down and now at 2.38. No prior labs available, but suspect had CKD after staghorn calculus removal in past. -Continue to monitor Code Status: Full code DVT Prophylaxis Heparin Subcutaneous Disposition and Comments We will follow with you as needed. CC / Reason for follow up: Perforated ulcer and right ureteral stone SUBJECTIVE: NG tube was accidentally pulled out. Denies chest pain or dyspnea. No nausea/vomiting/diarrhea ROS: < >> The following system(s) were reviewed. Pertinent positive and negative findings are noted in the HPI. [x] Const [] Eyes [] ENT [x] Resp [x] CV [x] GI [] [] Neuro [x] Musc [x] Skin [x] Psych [x] Endo [] Allergy [x] Heme/Lymph PHYSICAL EXAMINATION: << >>>>> Temp: [98.1 F (36.7 C)-99 F (37.2 C)] 98.8 F (37.1 C) Heart Rate: [62-75] 62 Resp: [12-16] 12 BP: (105-123)/(69-82) 116/75 GENERAL: NAD. Flat in bed. Interactive. Ill-appearing. EYES: Conjunctiva and sclera clear. ENT: Hearing intact. CV: S1 S2 noted. No distended neck veins. RESP: Clear, no rales, rhonchi, wheezes. Unlabored. GI: Nondistended without noted tympany. Appropriately tender. Incision well approximated. NG tube in place. SKIN: Warm and dry NEURO: No focal deficits. PSYCH: Mood and affect are appropriate. Cooperative. I/O s last 3 shifts: I/O last 3 completed shifts: In: 105 [I.V.:5; IV Piggyback:100] Out: 1420 [Emesis/NG output:1300; Drains:120] Reviewed 06/21/19 11:00 AM: [x] Laboratory [x] Transcriptions [x] Radiology [x] Microbiology [] Cardiology [x] Outside Records [x] Medications [] Family Time Spent/CCM Time: * Ramon Joiner MD - 06/21/2019 9:00 AM EST GENERAL SURGERY DAILY PROGRESS NOTE Patient Name: Felipa Lima MR #: [id number] Assessment and Plan: 63 y.o. female w/ PMH significant for nephrolithiasis and hysterectomy who presented with a week ofabdominal pain which acutely worsened on the day of presentation. CT showed small amount of free air in RUQ and R hydronephrosis. UGI confirmed perforation in 1st portion of duodenum. Perforated duodenal ulcer VICKI - S/p ex lap/gadiel patch 06/16 - UGI negative for leak - Advance to clears - NG inadvertently removed o/n - IVFs: D5 LR 125 - Abx: Zosyn x4 days completed - PPI BID - Pain: Dilaudid PRN - DVT ppx: SQH - Drain to bulb suction with serous OP - UA grossly positive and mild R hydroureter, urology following, planning f/u CT - Stool H pylori negative Subjective: Doing well, having bowel function, hungry, NG inadvertently removed o/n Objective: Temp: [97.5 F (36.4 C)-98.8 F (37.1 C)] 98.2 F (36.8 C) Heart Rate: [62-81] 68 Resp: [12-15] 15 BP: (91-120)/(56-81) 91/56 Gen: NAD Resp: unlabored CV: HDS Abd: soft, ATTP, ND, incision with coverlet in place, drain serous Ext: WWP Neuro: ARIN Joiner 06/22/19 Pager: [phone] Please contact surgical internal control manager energy economist at [phone] 5PM-6AM and weekends * Margi Johnson, RD - 06/21/2019 8:42 AM EST Nutrition Care Initial Assessment Reason for Completion: Dietitian Screen (LOS) Nutrition Diagnosis: Inadequate oral intake related to altered GI structure and/or function as evidenced by NPO since admit (x6 days) plus poor 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 Nutrition Intervention/Recommendations: - ADAT. - Initiate medical food supplements (will only be sent when on clear liquids or higher). - Recommend checking phosphorus and replace PRN d/t prolonged inadequate intake. Continue to monitor and replace potassium and magnesium. - Nutrition Education: No needs at this time Nutrition Prescription: Diet: Diet NPO Except: ICE CHIPS Oral nutrition supplements Boost Breeze; Boost Breeze Wiggins 3 times daily with meals Nutrition Goals: Source of Nutrition in next 24-48 hrs, tolerate diet advancement Start Date:06/21/2019 Expected End Date:06/25/2019 Assessment: Pertinent Clinical Information: PMH includes: nephrolithiasis, tobaccoa abuse, hysterectomy. Admitted with perforated duodenum, VICKI. S/p ex lap, gram patch repair or duodenal ulcer 06/16. Hypernatremia, switched to D5 1/2NS @ 125ml/hr (provides 510 kcal/day). Anemia. UGI today. Pt reports NG fell out on its own last night. 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 Wt hx: she had lost 97# x22 months with kidney problems, gained 20# back, and estimates she may have lost 10# more recently (though she doesn't tell me numeric wt hx). 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 Denies GI distress. Current ht:5' 3 Current wt:.99.8 kg (220 lb) Body mass index is 38.97 kg/m . BMI Classification: Class II Obesity (35-39.9) Wt hx: Wt Readings from Last 5 Encounters: 06/15/19 99.8 kg (220 lb) 06/15/19 99.8 kg (220 lb) - No EMR wt hx available, no photo ID wt hx available. Recent intake: no PO recorded per flowsheet - Current intake does not meet estimated needs. Edema: RUE nonpitting per flowsheet Skin Integrity: abdominal surgery wound per flowsheet GI Function: LBM 06/20 per flowsheet Nutrition-Focused Physical Exam: no overt s/sx of fat/muscle loss on visual exam Nutrition Focus Physical Exam Type: Visual Regions Assessed Orbital: WNL Temporal: WNL Interosseous: WNL Labs: Recent Labs 06/21/19 0423 NA 147* K 3.6 BICARB 21 CL 117* GLUCOSE 118* BUN 15 CREATININE 1.91* MG 2.1 No results found for: HGBA1C? Scheduled Meds: heparin (porcine) 5,000 Units Subcutaneous Q8H TRIPP pantoprazole 40 mg Intravenous BID potassium chloride 40 mEq Tube Once sodium chloride (PF) 5 mL Intravenous Q8H TRIPP Continuous Infusions: custom IV infusion builder 125 mL/hr (06/21/19 0200) sodium chloride 0.9 % Stopped (06/18/19 1134) Estimated Needs: Estimated Energy Needs Total Energy Estimated Needs: 0731-8617 kcal Method for Estimating Needs: 25-30 kcal/kg IBW (BMI 24.9 = 64kg) Total Protein Estimated Needs: 83-102 g Method for Estimating Needs: 1.3-1.6 g/kg IBW Assessed By: Margi Johnson RD, LD * Mason Hinton MD - 06/20/2019 1:21 PM EST Mason Hinton MD [facility] Hospitalists DAILY PROGRESS NOTE Patient Name: Felipa Lima PCP: Kandace Katz MD Perpetual Assessment: Felipa Lima is a 63 y.o. female who who was transferred to [facility] from [facility] for treatment of a perforated duodenal ulcer and infected right obstructing kidney stone. She had presented from home on 06/15/2019 with a 1-2 week complaint of flank pain that she had managed with NSAIDs. [facility] was consulted for medical management. Assessment and Plan Perforated duodenal ulcer with peritonitis and sepsis syndrome Per patient provided history associated with at least 2 weeks of NSAID use which is likely etiologyfor ulcer and presented with perforation and sepsis. -Had emergent exploratory laparotomy with abdominal lavage and Gadiel patch repair 06/16/2019 -Remains on bowel rest with NG tube in place to intermittent wall suction -Continue IV PPI therapy along with IV Zosyn x 4 doses - management per General Surgery Right-sided nephrolithiasis History of recurrent stones, most recent in December 2018, presenting with 2 weeks of flank pain and VICKI -CT reportedly with evidence of mild hydronephrosis, edema and possible stones -Urology following with recommendations for repeat CT imaging Hypernatremia - has been NPO. Na 148 with free water deficit of ~ 2.6L - no improvement with LR, so changed to D5 1/2NS at 125ml/h - follow Na . Anemia - baseline Cr ~ 12.6 and decreased to 9s. Suspect multifactorial from acute blood loss anemia post operatively along with dilutional component from IVF. - no evidence of active bleed - follow Hb and transfuse as needed Acute kidney injury with hyperkalemia Suspected multifactorial, due to hypoperfusion, NSAID use, and probable ureteral obstruction -Serum creatinine peaked at 3.65 on 06/15/2019 and trending down and now at 2.38. No prior labs available, but suspect had CKD after staghorn calculus removal in past. -Continue to monitor Code Status: Full code DVT Prophylaxis Heparin Subcutaneous Disposition and Comments We will follow with you as needed. CC / Reason for follow up: Perforated ulcer and right ureteral stone SUBJECTIVE: c/o feeling thirsty. Taking ice chips. Denies chest pain or dyspnea ROS: < >> The following system(s) were reviewed. Pertinent positive and negative findings are noted in the HPI. [x] Const [] Eyes [] ENT [x] Resp [x] CV [x] GI [] [] Neuro [x] Musc [x] Skin [x] Psych [x] Endo [] Allergy [x] Heme/Lymph PHYSICAL EXAMINATION: << >>>>> Temp: [97.9 F (36.6 C)-99 F (37.2 C)] 99 F (37.2 C) Heart Rate: [67-75] 75 Resp: [12-15] 15 BP: (97-123)/(62-82) 123/82 GENERAL: NAD. Flat in bed. Interactive. Ill-appearing. EYES: Conjunctiva and sclera clear. ENT: Hearing intact. CV: S1 S2 noted. No distended neck veins. RESP: Clear, no rales, rhonchi, wheezes. Unlabored. GI: Nondistended without noted tympany. Appropriately tender. Incision well approximated. NG tube in place. SKIN: Warm and dry NEURO: No focal deficits. PSYCH: Mood and affect are appropriate. Cooperative. I/O s last 3 shifts: I/O last 3 completed shifts: In: 5 [I.V.:5] Out: 1030 [Emesis/NG output:900; Drains:130] Reviewed 06/20/19 1:21 PM: [x] Laboratory [x] Transcriptions [x] Radiology [x] Microbiology [] Cardiology [x] Outside Records [x] Medications [] Family Time Spent/CCM Time: * Ramon Joiner MD - 06/20/2019 8:05 AM EST GENERAL SURGERY DAILY PROGRESS NOTE Patient Name: Felipa Lima MR #: [id number] Assessment and Plan: 63 y.o. female w/ PMH significant for nephrolithiasis and hysterectomy who presented with a week ofabdominal pain which acutely worsened on the day of presentation. CT showed small amount of free air in RUQ and R hydronephrosis. UGI confirmed perforation in 1st portion of duodenum. Perforated duodenal ulcer VICKI - S/p ex lap/gadiel patch 06/16 - Diet: NPO - NG to ILWS - IVFs: D5 LR 125 - Abx: Zosyn x4 days completed - PPI BID - Pain: Dilaudid PRN - DVT ppx: SQH - Drain to bulb suction with serous OP - UA grossly positive and mild R hydroureter, urology following, planning f/u CT - Stool H pylori negative - UGI tomorrow, if ok will remove NG and give clears to start Subjective: Doing well, having bowel function, hungry Objective: Temp: [97.9 F (36.6 C)-98.6 F (37 C)] 98.1 F (36.7 C) Heart Rate: [67-77] 69 Resp: [12-15] 15 BP: (97-116)/(62-78) 97/65 Gen: NAD Resp: unlabored CV: HDS Abd: soft, ATTP, ND, incision with coverlet in place, drain serous Ext: WWP Neuro: ARIN Joiner 06/20/19 Pager: [phone] Please contact surgical internal control manager energy economist at [phone] 5PM-6AM and weekends * Mason Hinton MD - 06/19/2019 5:24 PM EST Mason Hinton MD [facility] Hospitalists DAILY PROGRESS NOTE Patient Name: Felipa Lima PCP: Kandace Katz MD Perpetual Assessment: Felipa Lima is a 63 y.o. female who who was transferred to [facility] from [facility] for treatment of a perforated duodenal ulcer and infected right obstructing kidney stone. She had presented from home on 06/15/2019 with a 1-2 week complaint of flank pain that she had managed with NSAIDs. [facility] was consulted for medical management. Assessment and Plan Perforated duodenal ulcer with peritonitis and sepsis syndrome Per patient provided history associated with at least 2 weeks of NSAID use which is likely etiologyfor ulcer and presented with perforation and sepsis. -Had emergent exploratory laparotomy with abdominal lavage and Gadiel patch repair 06/16/2019 -Remains on bowel rest with NG tube in place to intermittent wall suction -Continue IV PPI therapy along with IV Zosyn Right-sided nephrolithiasis History of recurrent stones, most recent in December 2018, presenting with 2 weeks of flank pain and VICKI -CT reportedly with evidence of mild hydronephrosis, edema and possible stones -Urology following with recommendations for repeat CT imaging Hypernatremia - has been NPO. Na 146 with free water deficit of ~ 1.9L - continue IVF and follow Na . Anemia - baseline Cr ~ 12.6 and decreased to 9s. Suspect multifactorial from acute blood loss anemia post operatively along with dilutional component from IVF. - no evidence of active bleed - follow Hb and transfuse as needed Acute kidney injury with hyperkalemia Suspected multifactorial, due to hypoperfusion, NSAID use, and probable ureteral obstruction -Serum creatinine peaked at 3.65 on 06/15/2019 and trending down and now at 2.38. No prior labs available, but suspect had CKD after staghorn calculus removal in past. -Continue to monitor Code Status: Full code DVT Prophylaxis Heparin Subcutaneous Disposition and Comments We will follow with you as needed. CC / Reason for follow up: Perforated ulcer and right ureteral stone SUBJECTIVE: seen in afternoon. Has some improvement clinically. Na increased. Denies chest pain or dyspnea ROS: < >> The following system(s) were reviewed. Pertinent positive and negative findings are noted in the HPI. [x] Const [] Eyes [] ENT [x] Resp [x] CV [x] GI [] [] Neuro [x] Musc [x] Skin [x] Psych [x] Endo [] Allergy [x] Heme/Lymph PHYSICAL EXAMINATION: << >>>>> Temp: [97.9 F (36.6 C)-98.9 F (37.2 C)] 97.9 F (36.6 C) Heart Rate: [65-77] 73 Resp: [12-14] 12 BP: (107-120)/(71-81) 107/71 GENERAL: NAD. Flat in bed. Interactive. Ill-appearing. EYES: Conjunctiva and sclera clear. ENT: Hearing intact. CV: S1 S2 noted. No distended neck veins. RESP: Clear, no rales, rhonchi, wheezes. Unlabored. GI: Nondistended without noted tympany. Appropriately tender. Incision well approximated. NG tube in place. SKIN: Warm and dry NEURO: No focal deficits. PSYCH: Mood and affect are appropriate. Cooperative. I/O s last 3 shifts: I/O last 3 completed shifts: In: 2371.4 [I.V.:2371.3; IV Piggyback:0.2] Out: 1955 [Urine:1825; Drains:130; Stool:1] Reviewed 06/19/19 5:24 PM: [x] Laboratory [x] Transcriptions [x] Radiology [x] Microbiology [] Cardiology [x] Outside Records [x] Medications [] Family Time Spent/CCM Time: * Paige Tsai RN - 06/19/2019 8:50 AM EST DISCHARGE PLAN PROGRESS NOTE Date: 06/19/2019 Time: 8:50 AM Patient Name: Felipa Lima Date of : 1955 Sex: Female Discharge Readiness Expected Discharge Date: 06/21/19 Barriers to Discharge: Pending discharge order [facility] Disposition D/C Disposition: Home Agency/Destination: Home Home Care Needs : Undetermined HME: None Transportation Type: Auto Anticipated Discharge Plan Anticipated HME: None Anticipated Home Care Needs: None Patient on work que for no Ins. Met with patient at bedside to discuss needs. Introduced self and CM role. Patient stated that she has no Insurance, is retired on SSI, but makes $30.00 too much for Medicaid. Patient's PCP is Dr. Ada Katz at [facility]. Pt lives alone in a private residence. Her support is from a friend that more like her daughter and her sister. She drives and is able to drive to [employer]. She is not on any home medications and would have to pay out of pocket for scripts. Her sister will be her ride at discharge. Patient agreeable for this CM to call Financial Service to be seen at bedside. Called FS, left VM to come visit pt. * Ramon Joiner MD - 06/19/2019 8:16 AM EST GENERAL SURGERY DAILY PROGRESS NOTE Patient Name: Felipa Lima MR #: [id number] Assessment and Plan: 63 y.o. female w/ PMH significant for nephrolithiasis and hysterectomy who presented with a week ofabdominal pain which acutely worsened on the day of presentation. CT showed small amount of free air in RUQ and R hydronephrosis. UGI confirmed perforation in 1st portion of duodenum. Perforated duodenal ulcer VICKI - S/p ex lap/gadiel patch 06/16 - Diet: NPO - NG to ILWS - IVFs: D5 LR 125 - Abx: Zosyn x4 days completes today - PPI BID - Pain: Dilaudid PRN - DVT ppx: SQH - Drain to bulb suction with serous OP - UA grossly positive and mild R hydroureter, urology following, planning CT - Stool H pylori pending - Will plan to wait ~5 days prior to UGI and NG removal Subjective: Doing well postoperatively, having bowel function Objective: Temp: [97.5 F (36.4 C)-98.9 F (37.2 C)] 98.1 F (36.7 C) Heart Rate: [61-76] 71 Resp: [12-27] 12 BP: (110-151)/(63-85) 117/71 Gen: NAD Resp: unlabored CV: HDS Abd: soft, ATTP, ND, incision with coverlet in place, drain serous Ext: WWP Neuro: ARIN Joiner 06/19/19 Pager: [phone] Please contact surgical internal control manager energy economist at [phone] 5PM-6AM and weekends * Mason Hinton MD - 06/18/2019 5:22 PM EST Mason Hinton MD [facility] Hospitalists DAILY PROGRESS NOTE Patient Name: Felipa Lima PCP: Kandace Katz MD Perpetual Assessment: Felipa Lima is a 63 y.o. female who who was transferred to [facility] from [facility] for treatment of a perforated duodenal ulcer and infected right obstructing kidney stone. She had presented from home on 06/15/2019 with a 1-2 week complaint of flank pain that she had managed with NSAIDs. [facility] was consulted for medical management. Assessment and Plan Perforated duodenal ulcer with peritonitis and sepsis syndrome Per patient provided history associated with at least 2 weeks of NSAID use which is likely etiologyfor ulcer and presented with perforation and sepsis. -Had emergent exploratory laparotomy with abdominal lavage and Gadiel patch repair 06/16/2019 -Remains on bowel rest with NG tube in place to intermittent wall suction -Continue IV PPI therapy along with IV Zosyn Right-sided nephrolithiasis History of recurrent stones, most recent in December 2018, presenting with 2 weeks of flank pain and VICKI -CT reportedly with evidence of mild hydronephrosis, edema and possible stones -Urology following with recommendations for repeat CT imaging Acute kidney injury with hyperkalemia Presumed multifactorial, due to hypoperfusion, NSAID use, and probable ureteral obstruction -Serum creatinine peaked at 3.65 on 06/15/2019 and trending down and now at 2.38. No prior labs available, but suspect had CKD after staghorn calculus removal in past. -Continue to monitor Code Status: Full code DVT Prophylaxis Heparin Subcutaneous Disposition and Comments We will follow with you as needed. CC / Reason for follow up: Perforated ulcer and right ureteral stone SUBJECTIVE: seen in afternoon. No complaints. Has NG in place. States she is having some imrpovement. No nausea/vomiting/diarrhea. ROS: < >> The following system(s) were reviewed. Pertinent positive and negative findings are noted in the HPI. [x] Const [] Eyes [] ENT [x] Resp [x] CV [x] GI [] [] Neuro [x] Musc [x] Skin [x] Psych [x] Endo [] Allergy [x] Heme/Lymph PHYSICAL EXAMINATION: << >>>>> Temp: [97.5 F (36.4 C)-98.9 F (37.2 C)] 97.8 F (36.6 C) Heart Rate: [61-77] 62 Resp: [14-33] 14 BP: (99-151)/(57-85) 122/74 GENERAL: NAD. Flat in bed. Interactive. Ill-appearing. EYES: Conjunctiva and sclera clear. ENT: Hearing intact. CV: S1 S2 noted. No distended neck veins. RESP: Clear, no rales, rhonchi, wheezes. Unlabored. GI: Nondistended without noted tympany. Appropriately tender. Incision well approximated. NG tube in place. SKIN: Warm and dry NEURO: No focal deficits. PSYCH: Mood and affect are appropriate. Cooperative. I/O s last 3 shifts: I/O last 3 completed shifts: In: 6343.1 [I.V.:6244; IV Piggyback:99.1] Out: 4021 [Urine:3360; Emesis/NG output:450; Drains:210; Stool:1] Reviewed 06/18/19 5:22 PM: [x] Laboratory [x] Transcriptions [x] Radiology [x] Microbiology [] Cardiology [x] Outside Records [x] Medications [] Family Time Spent/CCM Time: * Hamilton Strickland, CHOCOLATIER - 06/18/2019 10:10 AM EST DAILY PROGRESS NOTE Patient Name: Felipa Lima MR #: [id number] No CP, SOB, N/V, pain controlled. Constitutional: Alert, cooperative, no distress, appears stated age Respiratory: Normal respiratory effort, non-labored breathing. Abdominal/GI: Soft, tender Extremities: No clubbing, cyanosis, or edema noted, no calf tenderness bilaterally, SCDs on and activated. Genitourinary: No cva pain Results from last 7 days Lab Units 06/18/19 0606/17/19 03406/16/19 0814 SODIUM mmol/L 144 138 134* POTASSIUM mmol/L 4.4 3.9 4.8 CHLORIDE mmol/L 115* 113* 110* BUN mg/dL 33* 44* 57* CREATININE mg/dL 2.38* 2.88* 3.25* GLUCOSE mg/dL 142* 105* 172* CALCIUM mg/dL 8.2* 7.8* 8.4 Results from last 7 days Lab Units 06/18/19 0606/17/19 03406/16/19 0814 WBC K/mcL 7.00 8.69 12.93* HGB g/dL 9.2* 9.2* 10.8* HCT % 29.1* 27.8* 32.3* PLT K/mcL 229 216 275 Assessment/Plan: Nephrolithiaisis - Patient with a history of kidney stones, underwent removal/blasting of a stone in November at [facility] - admitted with perforated duodenal ulcer s/p lap / gadiel patch 06/16 - CT stone study pending to evaluate for occult distal right ureteral stone / hydronephrosis - Creatinine improved to 2.38 * Rashmi Mckeon - 06/18/2019 9:34 AM EST 06/18/19 0934 Clinical Encounter Type Visit Type Non Crisis Non Crisis Visit Attempt;Rounding Visited With Patient not available Visit Length (minutes) 5 Patient Spiritual Assessment Spiritual Assessed Unable to Assess Rashmi Mckeon MDiv Resident [facility] Office: * Ramon Joiner MD - 06/18/2019 8:38 AM EST GENERAL SURGERY DAILY PROGRESS NOTE Patient Name: Felipa Lima MR #: [id number] Assessment and Plan: 63 y.o. female w/ PMH significant for nephrolithiasis and hysterectomy who presented with a week ofabdominal pain which acutely worsened on the day of presentation. CT showed small amount of free air in RUQ and R hydronephrosis. UGI confirmed perforation in 1st portion of duodenum. Perforated duodenal ulcer VICKI - S/p ex lap/gadiel patch 06/16 - Pressures remain marginal but adequate, asymptomatic, non tachycardic, good UOP - Afebrile, WBC normalized - Diet: NPO - NG to ILWS - IVFs: D5 LR 125 - Remove bauer - Abx: Zosyn x4 days (stop tomorrow) - PPI BID - Pain: Dilaudid PRN - DVT ppx: SQH - Drain to bulb suction with serous OP - UA grossly positive and mild R hydroureter, urology following, planning CT - Stool H pylori pending (needs to be collected) - Will plan to wait ~5 days prior to UGI and NG removal - Transfer to med surg Subjective: Doing well postoperatively, pain improving Objective: Temp: [97.9 F (36.6 C)-98.3 F (36.8 C)] 98.2 F (36.8 C) Heart Rate: [69-83] 70 Resp: [20-33] 33 BP: (99-120)/(57-73) 101/57 Gen: NAD Resp: unlabored CV: HDS Abd: soft, ATTP, ND, incision with coverlet in place, drain serous Ext: WWP Neuro: HINKLERocky Joiner 06/18/19 Pager: [phone] Please contact surgical internal control manager energy economist at [phone] 5PM-6AM and weekends Mariela Bernal RN - 06/17/2019 11:19 AM EST Anesthesia Progress Note 1 Day Post-Op Procedure(s): EXPLORATORY LAPAROTOMY, GRAM PATCH REPAIR OF OF ULCER Assessment / Plan Pain control: adequate Subjective Denies: nausea/vomiting Note status: sleeping. Pain management: adequate Nausea / vomiting: no Cardiovascular status: hemodynamically stable Comment: Patient sleeping at time of Post Anesthesia Visit. Chart reviewed. No complaints noted of nausea, sore throat. VSS. Temp: [36.8 C-37.4 C] 36.8 C Heart Rate: [70-87] 84 Resp: [20-32] 29 BP: (81-102)/(43-72) 94/56 Ramon Gr MD - 06/17/2019 11:14 AM EST GENERAL SURGERY DAILY PROGRESS NOTE Patient Name: Felipa Lima MR #: [id number] Assessment and Plan: 63 y.o. female w/ PMH significant for nephrolithiasis and hysterectomy who presented with a week ofabdominal pain which acutely worsened on the day of presentation. CT showed small amount of free air in RUQ and R hydronephrosis. UGI confirmed perforation in 1st portion of duodenum. Perforated duodenal ulcer VICKI - S/p ex lap/gadiel patch 06/16 - Hypotensive throughout the day yesterday - Given 2L fluid - Remains with SBP in 90s, but asymptomatic and nontachycardic with good UOP - Afebrile, WBC normalized - Diet: NPO - NG to ILWS - IVFs: D5 LR 125 - Maintain bauer for strict I/O, Cr improving, good UOP, likely remove tomorrow - Abx: Zosyn x4 days - PPI BID - Pain: Dilaudid PRN - DVT ppx: SQH - Drain to bulb suction with serous OP - UA grossly positive and mild R hydroureter, urology following, planning CT - Stool H pylori pending - Will plan to wait ~5 days prior to UGI and NG removal - Keep in STICU today, will transfer to [facility] tomorrow if remains stable Subjective: Doing well postoperatively, pain improving Objective: Temp: [98.2 F (36.8 C)-99.4 F (37.4 C)] 98.2 F (36.8 C) Heart Rate: [70-87] 84 Resp: [20-32] 29 BP: (81-102)/(43-72) 94/56 Gen: NAD Resp: unlabored CV: HDS Abd: soft, ATTP, ND, incision with coverlet in place, drain serous Ext: WWP Neuro: HINKLE * Shai Bear DO - 06/17/2019 11:11 AM EST Shai Bear DO [facility] Hospitalists DAILY PROGRESS NOTE Patient Name: Felipa Lima PCP: Kandace Katz MD Perpetual Assessment: Felipa Lima is a 63 y.o. female who who was transferred to [facility] from [facility] for treatment of a perforated duodenal ulcer and infected right obstructing kidney stone. She had presented from home on 06/15/2019 with a 1-2 week complaint of flank pain that she had managed with NSAIDs. [facility] was consulted for medical management. Assessment and Plan Perforated duodenal ulcer with peritonitis and sepsis syndrome Per patient provided history associated with at least 2 weeks of NSAID use -Status post emergent exploratory laparotomy with abdominal lavage and Gadiel patch repair 06/16/2019 -Remains on bowel rest with NG tube in place to intermittent wall suction -Continue IV PPI therapy along with IV Zosyn Right-sided nephrolithiasis History of recurrent stones, most recent in December 2018, presenting with 2 weeks of flank pain and VICKI -CT reportedly with evidence of mild hydronephrosis, edema and possible stones -Urology following with recommendations for repeat CT imaging Acute kidney injury with hyperkalemia Presumed multifactorial, due to hypoperfusion, NSAID use, and probable ureteral obstruction -Serum creatinine peaked at 3.65 on 06/15/2019 with improvement to 2.88 following administration ofcrystalloid fluids -Continue to monitor Code Status: Full code DVT Prophylaxis Heparin Subcutaneous Disposition and Comments We will follow with you as needed. CC / Reason for follow up: Perforated ulcer and right ureteral stone SUBJECTIVE: No overnight events noted. Patient without voiced complaints noting pain is relatively controlled and her NG tube is tolerable. She admits to 2 weeks of daily NSAID use managing right-sided pain. Denies past medical history or any [id number] medications use on a regular basis otherwise. ROS: < >> The following system(s) were reviewed. Pertinent positive and negative findings are noted in the HPI. [x] Const [] Eyes [] ENT [x] Resp [x] CV [x] GI [] [] Neuro [x] Musc [x] Skin [x] Psych [x] Endo [] Allergy [x] Heme/Lymph PHYSICAL EXAMINATION: << >>>>> Temp: [98.2 F (36.8 C)-99.4 F (37.4 C)] 98.2 F (36.8 C) Heart Rate: [69-87] 84 Resp: [20-32] 29 BP: (81-102)/(43-72) 94/56 GENERAL: NAD. Flat in bed. Interactive. Ill-appearing. EYES: Conjunctiva and sclera clear. ENT: Hearing intact. CV: S1 S2 noted. No distended neck veins. RESP: Clear, no rales, rhonchi, wheezes. Unlabored. GI: Nondistended without noted tympany. Appropriately tender. Incision well approximated. NG tube in place. SKIN: Warm and dry NEURO: No focal deficits. PSYCH: Mood and affect are appropriate. Cooperative. I/O s last 3 shifts: I/O last 3 completed shifts: In: 2894.1 [I.V.:793.6; IV Piggyback:2100.5] Out: 2975 [Urine:2360; Emesis/NG output:400; Drains:200; Blood:15] Reviewed 06/17/19 11:11 AM: [x] Laboratory [x] Transcriptions [x] Radiology [x] Microbiology [] Cardiology [x] Outside Records [x] Medications [] Family Time Spent/CCM Time: * Ramon Joiner MD - 06/16/2019 12:38 PM EST GENERAL SURGERY DAILY PROGRESS NOTE Patient Name: Felipa Lima MR #: [id number] Assessment and Plan: 63 y.o. female w/ PMH significant for nephrolithiasis and hysterectomy who presented with a week ofabdominal pain which acutely worsened on the day of presentation. CT showed small amount of free air in RUQ and R hydronephrosis. UGI confirmed perforation in 1st portion of duodenum. Perforated duodenal ulcer VICKI - S/p ex lap/gadiel patch 06/16 - HDS, WBC and Cr downtrending - Diet: NPO - NG to ILWS - IVFs: D5 LR 125 - Maintain bauer for strict I/O - Abx: Zosyn x4 days - PPI BID - Pain: Dilaudid PRN - DVT ppx: SQH - Drain to bulb suction with SS OP - UA grossly positive and mild R hydroureter, urology following, awaiting interpretation of imagingby attending - Stool H pylori pending - Will plan to wait ~5 days prior to UGI and NG removal Subjective: Doing well postoperatively, pain significantly improved compared to preop Objective: Temp: [97.2 F (36.2 C)-99 F (37.2 C)] 97.3 F (36.3 C) Heart Rate: [66-99] 69 Resp: [14-29] 29 BP: (87-140)/(55-87) 87/55 Gen: NAD Resp: unlabored CV: HDS Abd: soft, ATTP, ND, incision with coverlet in place, drain SS Ext: WWP Neuro: HINKLE * Brennen Austin CNP - 06/16/2019 7:58 AM EST Brennen Austin CNP [facility] Hospitalists Medical Consultation Patient Name:Felipa Lima MR #:[id number] :1955 Admit Date: [id number] Physicians: Kandace Katz MD (Family); No ref. provider found (Referring) Perpetual Assessment: Felipa Lima is a 63 y.o. female with a history of kidney stones who presented on 06/15/2019 from [facility] with right infected kidney stone and perforated duodenal ulcer. [facility] consulted for medical management ASSESSMENT AND PLAN Perforated Duodenum -S/p Exploratory Lap with gram patch repair of ulcer with Dr. Johnson -Presented with 2 weeks of abdominal pain -Leukocytosis 22, VSS, lactic normal -Per reports CT imaging at [facility] showed small amount of free air RUQ, right hydronephrosis -XR UGI showed Perforation of the first segment of the duodenum with extraluminal contrast extravasation tracking towards the kathy hepatis. Pneumoperitoneum, increased compared to the prior CT of 06/15/2019 -NPO, IVFs, NG tube in place -Zosyn -Blood cultures pending -Management per Surgery Right renal calculi -With history of kidney stones, most recently in 12/2018 -Reports 2 weeks of right flank pain -WBC 22, Cr. 3.65 -CT at [facility] showed irregular calculi vs grouping of calculi are present in lower pole of calyx of the right kidney and possibly within cortex, mild fullness of ureter,intraureteral calculus is not identified and possibly of recent passage is identified, mild periureteral fat stranding consistent with ureteritis -Urology consulted VICKI -With right ureteral calculi and decreased PO intake -Cr. 3.65, no baseline available -Hydrate with IVFs, Urology consult -Repeat BMP pending Hyperkalemia -Secondary to above -K 5.1 -EKG ordered -Hydrate with IVFs -Monitor BMP HISTORY CC: [facility] consulted for Medical Management HPI: Felipa Lima is a 63 y.o. female with a history of kidney stones who presented on 06/15/2019 from [facility] with right infected kidney stone and perforated duodenal ulcer.Patient reports RLQ and right flank pain over the last 2 weeks. Pain acutely worsened yesterday 06/15 with nonbloody vomiting. She presented to [facility] CT imaging at the [facility] showed small RUQ free air and right ureteral calculi. Patient was transferred to this facility. On arrival XR UGI did shows contrast extravasation tracking towards the kathy hepatis, pneumoperitoneum. Leukocytosis 22, VICKI with Cr. 3.65, VSS. Patient was taken to OR:Exploratory Lap with gram patch repair of ulcer with Dr. Johnson. Patient is evaluated postoperatively. She is resting comfortably in bed, denies abdominal pain. NG tube in place. Patient denies any home medications, denies hx of previous abdominal surgery outside of hysterectomy. She denies chest pain, SOB, lightheadedness, fever/chills. ROS:>>>>>>>>>> The following system(s) were reviewed. Pertinent positive and negative findings are noted in the HPI. [x] Const [x] Eyes [x] ENT [x] Resp [x] CV [x] GI [x] [x] Neuro [x] Musc [x] Skin [x] Psych [x] Endo [x] Allergy [x] Heme/Lymph PMH/PSH/SH/FH: Past Medical History: Diagnosis Date Kidney stones Patient denies medical problems Past Surgical History: Procedure Laterality Date FOOT SURGERY HYSTERECTOMY History reviewed. No pertinent family history. Social History Socioeconomic History Marital status: Single Spouse name: Not on file Number of children: Not on file Years of education: Not on file Highest education level: Not on file Occupational History Not on file Social Needs Financial resource strain: Not on file Food insecurity Worry: Not on file Inability: Not on file Transportation needs Medical: Not on file Non-medical: Not on file Tobacco Use Smoking status: Former Smoker Smokeless tobacco: Never Used Substance and Sexual Activity Alcohol use: Not Currently Comment: rare Drug use: Never Sexual activity: Not on file Lifestyle Physical activity Days per week: Not on file Minutes per session: Not on file Stress: Not on file Relationships Social connections Talks on phone: Not on file Gets together: Not on file Attends caodaism service: Not on file Active member of club or organization: Not on file Attends meetings of clubs or organizations: Not on file Relationship status: Not on file Other Topics Concern Not on file Social History Narrative Not on file Allergy Information: I have reviewed the patient's allergies. Codeine; Ct: iodinated contrast- oral and iv dye; and Morphine Home Medications: No current outpatient medications on file as of 06/16/2019. PHYSICAL EXAMINATION << >>>>> Vital Signs: Temp: [97.2 F (36.2 C)-99 F (37.2 C)] 97.3 F (36.3 C) Heart Rate: [66-99] 66 Resp: [14-20] 20 BP: (95-140)/(59-87) 96/66 GENERAL: NAD EYES: Conjunctiva and sclera clear, EOMI, PERRL ENT: Hearing intact. NECK: No adenopathy or thyromegaly CV: RRR, no murmur. No JVD. No edema RESP: Clear, no rales, rhonchi, wheezes or increase in respiratory effort, no use of accessory muscles GI: Non-distended, +BS, soft, non-tender. Midline dressing D&I, RLQ CORY drain in place : Bauer catheter in place MUSC: Normal ROM without deformity SKIN: Warm and dry. No rashes. NEURO: Alert, Ox3. Grossly normal motor and sensory exam. No focal deficits PSYCH: Mood and affect are appropriate. Cooperative. Laboratory and Additional Data Acquired or Reviewed: [x] Laboratory [x] Transcriptions [x] Radiology [] Microbiology [x] Cardiology [] Outside Records [x] Medications [] Family Time Spent: documented in this encounter* Lorena Beasley MD - 07/10/2019 10:07 AM EST SURGERY DAILY PROGRESS NOTE Patient Name: Felipa Lima MR #: [id number] 07/10/2019 10:07 AM Assessment/Plan: 63 yo F with with a history of kidney stones, smoking, and NSAID use presenting with abdominal painfor 5 days. She was taken to the OR on 06/16/19 for an ex lap, gram patch repair of ulcer. She had a post-op UGI that was negative for leak. She was advanced Postop duodenal ulcer repair. - Cont to avoid NSAIDs - Jazmine pureed / liquid diet. Ok to advance to soft for next 2 weeks then advance to regular after that. - Cont protonix BID - Will see back in 2 months and schedule GI EGD in 3 months - [facility] removed, healing well - Light duty at work for 3 more weeks - Will check serum cr today Subjective: Doing well. Jazmine diet Objective: Current vital signs: There were no vitals taken for this visit. I/O @RRIOCURSHIFT@ General: No acute distress Neurological: A&Ox 3, no focal neurological deficits Chest: Symmetrical chest rise CV: HDS Pulm: Nonlabored GI: Abd soft, non-tender, non-distended, no peritoneal signs Wound: healing well. C/d/i. No hernia, no infection. Laboratory Studies: Recent laboratory studies reviewed Diagnostic Imaging: Recent diagnostic imaging/reports reviewed Lorena Beasley MD General Surgery [id number] [phone] After 5PM and on weekends, please call the surgery internal control manager at [phone]. documented in this encounter Assessments Diagnosis Follow-up examination, following other surgery Diagnosis Follow-up examination, following other surgery Diagnosis Contact with or exposure to viral disease- Primary Contact with or exposure to other viral diseases Gastroesophageal reflux disease with esophagitis and hemorrhage Diagnosis Gastroesophageal reflux disease with esophagitis and hemorrhage Diagnosis Bowel perforation (HCC) Perforation of intestine Ureterolithiasis Calculus of ureter VICKI (acute kidney injury) (HCC) Urethra, calculus Calculus in urethra Perforated duodenal ulcer (HCC) Chronic or unspecified duodenal ulcer with perforation, without mention of obstruction Postoperative pain Other acute postoperative pain Duodenal perforation (HCC) Other specified disorder of stomach and duodenum Kidney stones Calculus of kidney Patient denies medical problems Diagnosis Visit for wound check Discharge Instructions * Discharge Instr - AVS First Page* Mason Hinton MD - 06/23/2019 10:22 AM EST Check chem7 in 2 days-- to be done by [id number] Follow-up your primary urologist * Additional Instructions* Lorena Beasley MD - 06/23/2019 Call if you have increasing pain, fevers, or intolerance of food (nausea and vomiting). Please get your blood checked before coming to the office to be seen. Make sure you are staying hydrated with water throughout the day. * Attachments The following attachments cannot be sent through Care Everywhere. * Peptic Ulcer Disease (Sinhala) documented in this encounter Instructions * Patient Instructions* Samra Peña MA - 07/10/2019 10:10 AM EST Please call your nurse, Abeba at [phone] Option # 7 if you need to leave a message for your doctor. You may also leave a message for your doctor through your [employer] account. For urgent needs, call [phone] Option # 2 to speak with the triage nurse during business hours. For urgent calls when the office is closed, call the office at [phone] option # 1 and you will be connected with [employer] [facility] personnel who will route your comments to the appropriate provider. Continue a soft diet for 2 More weeks. We will see you back in 2 months. documented in this encounter Additional Source Comments INFORMATION SOURCE (unrecogn ized section and content) DATE CREATED AUTHOR AUTHOR'S ORGANIZ ATION 07/27/2020 [facility] DATE CREATED AUTHOR AUTHOR'S ORGANIZ ATION 07/31/2020 [facility] DATE CREATED AUTHOR AUTHOR'S ORGANIZ ATION 09/07/2020 [facility] DATE CREATED AUTHOR AUTHOR'S ORGANIZ ATION 07/05/[address] [facility] DATE CREATED AUTHOR AUTHOR'S ORGANIZ ATION 11/19/2021 [facility] [place] [facility] DATE CREATED AUTHOR AUTHOR'S ORGANIZ ATION 01/12/2023 [facility] DATE CREATED AUTHOR AUTHOR'S ORGANIZ ATION 03/14/2023 [facility] Reason for Visit (unrecogniz ed section and content) Reason Comments Abdominal Pain Status Reason Specialty Diagnoses / Procedures Referre d By Contact Referred To Contact Diagnoses k27.[address] EGD TRANSORAL BIOPSY SINGLE/MULTIPLE ESOPHAGOGASTRODUODENOS COPY Reason Comments Medication Refill Messi Mae MD - 07/29/2020 12:35 PM Messi López MD - 02/21/2020 1:58 PM EDT H&P Notes (unrecognized sect ion and content) GI H&P Patient Demographics: Felipa Lima [address] [facility] [address] (home) Date of : 1955 CHIEF COMPLAINT: Pre-procedure H&P History of Presenting Illness: Felipa Lima is a 64 y.o. female with mentioned past medical history presenting today for an EGD as per referring physician's request. Currently patient states feeling well and denies any major complaints Review of Systems: Review of Systems Constitutional: Negative for activity change and chills. HENT: Negative for congestion and ear pain. Eyes: Negative for pain and discharge. Musculoskeletal: Negative for myalgias and neck pain. Skin: Negative for color change. Neurological: Negative for light-headedness and numbness. Hematological: Does not bruise/bleed easily. Psychiatric/Behavioral: Negative for agitation and confusion. Patient History: Past Medical History: Diagnosis Date VICKI (acute kidney injury) (HCC) Bladder problem related to kindey problem Kidney stones Nephrolithiasis Patient denies medical problems Perforated duodenal ulcer (HCC) Urethra, calculus Past Surgical History: Procedure Laterality Date EGD N/A 02/21/2020 Procedure: ESOPHAGOGASTRODUODENOSCOPY; Surgeon: Messi Mae MD; Location: [facility]; Service: Gastroenterology EXPLORATORY LAPAROTOMY N/A 06/16/2019 Procedure: EXPLORATORY LAPAROTOMY, GRAM PATCH REPAIR OF OF ULCER; Surgeon: Bard Johnson MD; Location: [facility] Main OR; Service: General Surgery FOOT SURGERY HYSTERECTOMY History reviewed. No pertinent family history. Social History Substance and Sexual Activity Drug Use Never Social History Tobacco Use Smoking Status Former Smoker Smokeless Tobacco Never Used Social History Substance and Sexual Activity Sexual Activity Not on file Home Medications: Prior to Admission medications Medication Sig Start Date End Date Taking? Authorizing Provider pantoprazole (PROTONIX) 40 MG tablet Take 1 (one) tablet (40 mg total) by mouth 2 (two) times a day . 07/10/19 07/29/20 Yes Lorena Beasley MD ondansetron (Zofran ODT) 4 MG disintegrating tablet Dissolve 1 (one) tablet (4 mg total) on top of tongue every 8 (eight) hours as needed for nausea . 06/23/19 06/30/19 Ro Garcia MD PHYSICAL EXAM: PACU Vitals 07/29/20 1128 BP: 108/71 Pulse: 82 Resp: (!) 20 Temp: 98.7 F (37.1 C) SpO2: 95% 106.6 kg (235 lb) 5' 3 Body mass index is 41.63 kg/m . Physical Exam Constitutional: Patient is oriented to person, place, and time. Patient appears well-developed. No distress. HENT: Head: Normocephalic. Eyes: Conjunctivae are normal. Pulmonary/Chest: No stridor. Abdominal: Soft. There is no tenderness. Musculoskeletal: Patient exhibits no tenderness. Neurological: Patient is alert and oriented to person, place, and time. Skin: Patient's skin is warm. Psychiatric: Patient has a normal mood and affect. Vitals reviewed. For detailed cardio-pulmonary exam, please see exam documentation from anesthesia provider Assessment & Plan: Felipa Lima is a 64 y.o. female with mentioned past medical history presenting today for an EGD as per referring physician's request. Plan - To proceed with the planned procedure for today. Consent note-I have explained the procedure to the patient at length today along with the risks and benefits involved with the procedure. I have explained the risks including but not limited to infection, excessive bleeding (both immediate and delayed), perforation or tear requiring emergent surgery. Other risks associated with anesthesia have been explained to the patient by the anesthesia team. The potential risk of infection transmission (COVID-19) related to entering a medical facility and undergoing a medical procedure during the current pandemic has been explained to the patient, which they state clearly understanding, and are able to verbalize it back. They express understanding that while we take appropriate precautions consistent with prevailing medical standards, any contact with any person in any setting at this time presents a risk of transmission and contraction of COVID-19. The patient states understanding all the risks involved with the procedure and is agreeable to proceed with the procedure today. Respectfully; Dr. Messi Mae MD documented in this encounter GI H&P Patient Demographics: Felipa Lima [address] [facility] [address] (home) Date of : 1955 CHIEF COMPLAINT: Pre-procedure H&P History of Presenting Illness: Felipa Lima is a 64 y.o. female with mentioned past medical history presenting today for an EGD as per referring physician's request. Currently patient states feeling well and denies any major complaints Review of Systems: Review of Systems Constitutional: Negative for activity change and chills. HENT: Negative for congestion and ear pain. Eyes: Negative for pain and discharge. Musculoskeletal: Negative for myalgias and neck pain. Skin: Negative for color change. Neurological: Negative for light-headedness and numbness. Hematological: Does not bruise/bleed easily. Psychiatric/Behavioral: Negative for agitation and confusion. Patient History: Past Medical History: Diagnosis Date VICKI (acute kidney injury) (HCC) Kidney stones Nephrolithiasis Patient denies medical problems Perforated duodenal ulcer (HCC) Urethra, calculus Past Surgical History: Procedure Laterality Date EXPLORATORY LAPAROTOMY N/A 06/16/2019 Procedure: EXPLORATORY LAPAROTOMY, GRAM PATCH REPAIR OF OF ULCER; Surgeon: Brad Johnson MD; Location: [facility] Main OR; Service: General Surgery FOOT SURGERY HYSTERECTOMY History reviewed. No pertinent family history. Social History Substance and Sexual Activity Drug Use Never Social History Tobacco Use Smoking Status Former Smoker Smokeless Tobacco Never Used Social History Substance and Sexual Activity Sexual Activity Not on file Home Medications: Prior to Admission medications Medication Sig Start Date End Date Taking? Authorizing Provider pantoprazole (PROTONIX) 40 MG tablet Take 1 (one) tablet (40 mg total) by mouth 2 (two) times a day . 07/10/19 02/21/20 Yes Lorena Beasley MD ondansetron (Zofran ODT) 4 MG disintegrating tablet Dissolve 1 (one) tablet (4 mg total) on top of tongue every 8 (eight) hours as needed for nausea . 06/23/19 06/30/19 Ro Garcia MD PHYSICAL EXAM: PACU Vitals 02/21/20 1348 BP: 139/85 Pulse: 66 Resp: (!) 22 Temp: 98.9 F (37.2 C) SpO2: 98% There is no height or weight on file to calculate BMI. Physical Exam Constitutional: Patient is oriented to person, place, and time. Patient appears well-developed. No distress. HENT: Head: Normocephalic. Eyes: Conjunctivae are normal. Pulmonary/Chest: No stridor. Abdominal: Soft. There is no tenderness. Musculoskeletal: Patient exhibits no tenderness. Neurological: Patient is alert and oriented to person, place, and time. Skin: Patient's skin is warm. Psychiatric: Patient has a normal mood and affect. Vitals reviewed. For detailed cardio-pulmonary exam, please see exam documentation from anesthesia provider Assessment & Plan: Felipa Lima is a 64 y.o. female with mentioned past medical history presenting today for an EGD as per referring physician's request. Plan - To proceed with the planned procedure for today. Consent note-I have explained the procedure to the patient at length today along with the risks and benefits involved with the procedure. I have explained the risks including but not limited to infection, excessive bleeding (both immediate and delayed), perforation or tear requiring emergent surgery. Other risks associated with anesthesia have been explained to the patient by the anesthesia team. The potential risk of infection transmission (COVID-19) related to entering a medical facility and undergoing a medical procedure during the current pandemic has been explained to the patient, which they state clearly understanding, and are able to verbalize it back. They express understanding that while we take appropriate precautions consistent with prevailing medical standards, any contact with any person in any setting at this time presents a risk of transmission and contraction of COVID-19. The patient states understanding all the risks involved with the procedure and is agreeable to proceed with the procedure today. Respectfully; Dr. Messi Mae MD documented in this encounter Jillian Varela PA-C - 06/16/2019 8:46 AM EST Consult Notes (unrecognized section and content) Associated Order(s): IP CONSULT TO UROLOGY Patient Name: Felipa Lima Admit Date: [id number] MR #: [id number] : 1955 Physicians: Kandace Katz MD (Family); No ref. provider found (Referring) Chief Complaint/Reason for Visit: CT concerning for Stones Assessment and Plan/Recommendations: Felipa Lima is a 63 y.o. y/o female presenting with Abdominal Pain Genitourinary Kidney stones Assessment & Plan - Patient with a history of kidney stones, underwent removal/blasting of a stone in November at [facility] in [place] - CT revealed mild right hydro and possible stones (I will need to have Dr. Sommer review these films) - CRE 3.65 - Plan: Discussed patients history with her friend Diane over the phone who was very familiar with her medical history. We will plan to monitor her CRE, with her recent duodenal perforation it would be ideal to treat non-surgically. No acute intervention planned, Dr. Sommer to see later today. History of Present Illness: Patient with hx of kidney stones presents with abdominal pain that was worsened since last Tuesday. Denies associated fevers or chills, had one episode of vomiting earlier yesterday. States that her pain got progressively worse to where she presented to ER. She has a significant history of kidney stones. She was seen in the later spring at [facility] in [place] and had a nephrostomy tube for 2 months, and ultimately had her kidney stone treated. Since November, when she was treated she has not had flank pain. I did speak with her friend Diane who she refers to as her adopted daughter. 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 History: Past Medical History: Diagnosis Date Kidney stones Patient denies medical problems Perforated duodenal ulcer (HCC) Past Surgical History: Procedure Laterality Date FOOT SURGERY HYSTERECTOMY History reviewed. No pertinent family history. Social History Socioeconomic History Marital status: Single Spouse name: Not on file Number of children: Not on file Years of education: Not on file Highest education level: Not on file Occupational History Not on file Social Needs Financial resource strain: Not on file Food insecurity Worry: Not on file Inability: Not on file Transportation needs Medical: Not on file Non-medical: Not on file Tobacco Use Smoking status: Former Smoker Smokeless tobacco: Never Used Substance and Sexual Activity Alcohol use: Not Currently Comment: rare Drug use: Never Sexual activity: Not on file Lifestyle Physical activity Days per week: Not on file Minutes per session: Not on file Stress: Not on file Relationships Social connections Talks on phone: Not on file Gets together: Not on file Attends caodaism service: Not on file Active member of club or organization: Not on file Attends meetings of clubs or organizations: Not on file Relationship status: Not on file Other Topics Concern Not on file Social History Narrative Not on file Allergy Information: I have reviewed the patient's allergies. Codeine; Ct: iodinated contrast- oral and iv dye; and Morphine Home Medications: No current outpatient medications on file as of 06/16/2019. Review of Systems: The following system(s) were reviewed and pertinent findings noted: Constitutional Eyes ENT CV Resp GI Neuro Skin Musc Endo Heme/Lym Allergy Psych All other systems reviewed and negative other than HPI Physical Examination: Vital Signs: BP 96/66 Pulse 66 Temp 97.3 F (36.3 C) (Oral) Resp (!) 20 Ht 5' 3 Wt 99.8 kg (220 lb) SpO2 97% BMI 38.97 kg/m General: Alert, cooperative, no distress, appears stated age Head: Normocephalic, without obvious abnormality, atraumatic Eyes: PERRL, conjunctiva/corneas clear Throat: Lips, mucosa, and tongue normal Neck: Supple, symmetrical, trachea midline Back: Symmetric, no curvature Lungs: Respirations unlabored,normal respiratory effort Chest Wall: No tenderness or deformity Cardiovascular: Regular rate and rhythm Abdomen: Soft, non-tender Extremities: Normal, atraumatic, no cyanosis or edema Skin: Skin color, texture, turgor normal, no rashes or lesions Musculoskeletal: Full range of motion of all extremities; no joint edema Neurologic: CNII-XII intact; normal strength Psych: Mood and affect appropriate : bauer in urine concentrated Laboratory and Additional Data Reviewed: Laboratory 06/16/19 8:48 AM Radiology 06/16/19 8:48 AM Medications 06/16/19 8:48 AM Transcriptions 06/16/19 8:48 AM Assessment Detail: Associated attestation - Jose Sommer MD - 06/16/2019 1:20 PM EST Seen / evaluated. Films reviewed. Agree with plan. Recommend CT Stone study when clinically feasible to evaluate for occult distal R ureteral stones / hydro. Will review when available. Call if acute changes or questions [phone].documented in this encounter Patrizia Mcallister RN - 06/15/2019 11:46 PM Amira Lopez RN - 06/15/2019 10:54 PM Belen Cunha PA-C - 06/15/2019 10:36 PM Amira Lopez RN - 06/15/2019 9:37 PM EST ED Notes (unrecognized secti on and content) Transferred to surgery Per dr. Garcia, no NG needed at this time PCP - Kandace Katz MD Chief Complaint Patient presents with Abdominal Pain HPI This is a 63 y.o. female with a PMH of kidney stones presenting to the ED with complaints of abdominal pain. She was transferred from an outlying facility from [facility]. She went there because she been having right flank pain for approximately 2 weeks. She also was having nausea and vomiting. They did a CAT scan and found an obstructing kidney stone that was infected as well and perforated duodenum. The patient was medicated with Invanz, fentanyl, and Zofran and she voices her pain is 2/10 at this time. Review of Systems Constitutional: no fever, chills Skin: No rash ENMT: No runny nose, stuffy nose, sore throat Resp: No SOB, cough Cardio: No chest discomfort, lower extremity swelling GI: + abd pain, nausea, vomiting, no diarrhea Genitourinary: no dysuria, urinary frequency Musculoskeletal: no new myalgias Neurologic: no new numbness Positives and pertinent negatives as per HPI and above. All other systems were reviewed and are negative Previous Records Reviewed Past Medical History Past Medical History: Diagnosis Date Kidney stones Patient denies medical problems Past Surgical History Past Surgical History: Procedure Laterality Date FOOT SURGERY HYSTERECTOMY Family History History reviewed. No pertinent family history. Social History Social History Socioeconomic History Marital status: Single Spouse name: Not on file Number of children: Not on file Years of education: Not on file Highest education level: Not on file Occupational History Not on file Social Needs Financial resource strain: Not on file Food insecurity Worry: Not on file Inability: Not on file Transportation needs Medical: Not on file Non-medical: Not on file Tobacco Use Smoking status: Former Smoker Smokeless tobacco: Never Used Substance and Sexual Activity Alcohol use: Not Currently Comment: rare Drug use: Never Sexual activity: Not on file Lifestyle Physical activity Days per week: Not on file Minutes per session: Not on file Stress: Not on file Relationships Social connections Talks on phone: Not on file Gets together: Not on file Attends caodaism service: Not on file Active member of club or organization: Not on file Attends meetings of clubs or organizations: Not on file Relationship status: Not on file Other Topics Concern Not on file Social History Narrative Not on file Allergies Allergies Allergen Reactions Codeine GI Intolerance Ct: Iodinated Contrast- Oral And Iv Dye Hives Morphine GI Intolerance Medications There are no discharge medications for this patient. Physical Exam Initial Vital Signs BP (!) 119/59 Pulse 93 Temp 99 F (37.2 C) (Oral) Resp 18 Ht 5' 3 Wt 99.8 kg (220 lb) SpO2 97% BMI 38.97 kg/m Vital Signs During ED Visit (as charted by nursing) Patient Vitals for the past 24 hrs: BP Temp Temp src Pulse Resp SpO2 Height Weight 06/15/192201 (!) 119/59 93 18 97 % 06/15/192048 (!) 101/59 91 18 97 % 06/15/191956 117/76 89 18 98 % 06/15/19 1839 101/87 99 F (37.2 C) Oral 99 18 99 % 5' 3 99.8 kg (220 lb) Physical Exam Vitals signs and nursing note reviewed. Constitutional: General: She is not in acute distress. Appearance: She is well-developed. She is not diaphoretic. Comments: Nontoxic-appearing HENT: Head: Normocephalic and atraumatic. Right Ear: External ear normal. Left Ear: External ear normal. Nose: Nose normal. Mouth/Throat: Pharynx: No oropharyngeal exudate. Eyes: Conjunctiva/sclera: Conjunctivae normal. Pupils: Pupils are equal, round, and reactive to light. Neck: Musculoskeletal: Normal range of motion. Cardiovascular: Rate and Rhythm: Normal rate and regular rhythm. Heart sounds: Normal heart sounds. No murmur. Pulmonary: Effort: Pulmonary effort is normal. No respiratory distress. Breath sounds: Normal breath sounds. No stridor. No wheezing or rales. Abdominal: General: Bowel sounds are normal. There is distension. Palpations: Abdomen is soft. Tenderness: There is abdominal tenderness (Generalized, worse on the right side. CVA tenderness). There is guarding. Musculoskeletal: Normal range of motion. Skin: General: Skin is warm and dry. Coloration: Skin is not pale. Findings: No rash. Neurological: Mental Status: She is alert and oriented to person, place, and time. IMPRESSION/ ED COURSE ED Course as of Jun 15 2239TueJun 15, 2019 1911 Spoke w/gen surg resident at this time [AA] ED Course User Index [AA] Belen Cedeno PA-C This is a 63-year-old female who comes as a transfer from [facility] for ruptured duodenum and an obstructed infected kidney stone on the right side. Her abdomen is distended, diffusely tender but worse on the right side and she has some guarding. She has right CVA tenderness. She is nontoxic- appearing however was medicated with Invanz, fentanyl, and Zofran as well as fluids before coming in. I did speak with the general surgery resident upon the patient's arrival. She had a market white count of 30,000 at the outlying facility, it is 22,000 here. LFTs unremarkable. Hemoglobin normal. Lactate normal. Urine does appear to be infected, this was have a culture and blood cultures were obtained here as well. She was started on broad-spectrum antibiotics by general surgery and we will admit to their service. . . FINAL DIAGNOSIS 1. Bowel perforation (HCC) 2. Ureterolithiasis Labs Reviewed BASIC METABOLIC PANEL - Abnormal; Notable for the following components: Result Value Sodium 134 (*) Bicarbonate 13 (*) Glucose 158 (*) BUN 62 (*) Creatinine 3.65 (*) eGFR 13 (*) All other components within normal limits Narrative: The eGFR should be used for monitoring renal function only and not for medication dosing. URINALYSIS - Abnormal; Notable for the following components: Color, Urine Ada (*) Clarity, Urine Cloudy (*) Protein, Urine 100 (*) Glucose, Urine 50 (*) Ketones, Urine Trace (*) Blood, Urine Large (*) Leukocyte Esterase, Urine Large (*) WBCs, Urine >180 (*) RBCs, Urine >180 (*) Bacteria, Urine Many (*) WBC Clumps, Urine Many (*) All other components within normal limits Narrative: Microscopic examination is performed on all urinalysis samples and only positive findings are reported. The test for blood on the chemical analytic portion of urinalysis may also be positive due to hemoglobinuria and myoglobinuria and if red blood cells are present they are quantified by microscopic examination. PT/INR - Abnormal; Notable for the following components: Protime (PT) 14.5 (*) INR 1.2 (*) All other components within normal limits Narrative: During the induction phase of oral anticoagulation, the INR may not reflect the anticoagulation status of the patient. Therapeutic ranges for INR's are: Most clinical situations: INR 2.0-3.0 Mechanical Prosthetic Valve: INR 2.5-3.5 Critical: INR >5.0 CBC WITH AUTO DIFFERENTIAL - Abnormal; Notable for the following components: WBC 22.65 (*) Neutrophils Abs 20.85 (*) Lymphocytes Abs 0.34 (*) Monocytes Abs 1.29 (*) All other components within normal limits LACTIC ACID, PLASMA - Normal HEPATIC FUNCTION PANEL - Normal BLOOD CULTURE AEROBIC/ANAEROBIC BLOOD CULTURE AEROBIC/ANAEROBIC URINE AEROBIC CULTURE CBC AND DIFFERENTIAL Narrative: The following orders were created for panel order CBC w/ Diff. Procedure Abnormality Status --------- ------ CBC Auto Differential[[id number]] Abnormal Final result Please view results for these tests on the individual orders. TYPE AND SCREEN ABORH VERIFICATION Narrative: Patient's ABO/Rh is verified. Radiographic Imaging (if any) During ED Visit CT Comparison Import Final Result XR UGI With KUB (Results Pending) Medications Ordered/Given During ED Visit Medications piperacillin-tazobactam (ZOSYN) IVPB 3.375 g (premix) (has no administration in time range) pantoprazole (PROTONIX) injection 40 mg (40 mg Intravenous Given 06/15/192048) diphenhydrAMINE (BENADRYL) injection 25 mg (has no administration in time range) dextrose 5 % in lactated ringers infusion (125 mL/hr Intravenous New Bag 06/15/192144) piperacillin-tazobactam (ZOSYN) IVPB 4.5 g (premix) (0 g Intravenous Stopped 06/15/192126) lactated ringers bolus 1,000 mL (0 mL Intravenous Stopped 06/15/192126) hydrocortisone sod succ (SOLU-CORTEF) injection 200 mg (200 mg Intravenous Given 06/15/192155) diphenhydrAMINE (BENADRYL) injection 25 mg (25 mg Intravenous Given 06/15/192155) LORazepam (ATIVAN) injection 1 mg (1 mg Intravenous Given 06/15/192149) Procedures Note: To expedite correspondence this note was generated by [employer] voice recognition software. All imaging has been read by a Radiologist. Belen Cedeno PA-C 06/15/192238 Radiology calling transport for pt now, medications will be given right before test, radiology states to hold off NG placement until after test is performed STEVE [phone] FOR INFO Surgery at [facility] Medics gave 25mcg and 4mg zofran on route Referral note: Call from Dr Mari Reyna at [facility] ED with Request to transfer to [facility] for perforated bowel with free air, also has an obstructed kidney stone , pt stable [facility] on stand by at [facility]. Pt has had abd pain x 1 week Bed: 22 Expected date: 06/15/19 Expected time: 6:17 PM Means of arrival: Medical Flight Comments: MF4/ referral FORREST/ Tu documented in this encounter CDI Query - Mason Hinton MD - 06/19/2019 2:02 PM ESTCDI Query - Mason Hinton MD - 06/19/2019 1:57 PM ESTPlan of Care - Clark Galvan RN - 06/17/2019 4:32 AM EST Miscellaneous Notes (unrecog nized section and content) Noted monitoring of HGB and HCT Clinical Indicators: HGB: 12.6, 10.8, 9.2, 9.2, 9.2 HCT: 38.9, 32.3, 27.8, 29.1, 29.1 D5 with lactated ringers @ 125ml/hr IV continuous Patient admitted with sepsis and duodenal ulcer. 06/16/19 Gadiel patch repair of perforated duodenal ulcer. Please document the corresponding diagnosis reflective of these findings. For Example: Acute blood loss anemia Acute postoperative blood loss anemia Anemia due to postoperative blood loss with component of dilution Decrease in hemoglobin is clinically undetermined Other (please specify) Unable to determine Thank you, MAYANK Figueredo, RN Clinical Roaster Helper [phone] After business hours you may contact Joana Jonathan at [phone](Weekdays until 10 PM and weekends 8 AM -10 PM Noted documentation of acute kidney injury per progress notes. Clinical Indicators: 06/18 Prog Note: Acute kidney injury with hyperkalemia-Presumed multifactorial, due to hypoperfusion, NSAID use, and probable ureteral obstruction BUN: 62, 57, 44, 33, 24 Creatinine: 3.65, 3.25, 2.88, 2.38, 2.07 eGFR: 13, 15, 17, 21, 25 D5 in lactated ringers @ 125ml/hr IV continuous Patient admitted with sepsis and duodenal ulcer. Please further specify the etiology of the VICKI that most accurately reflects the patient's renal status. For Example: Acute kidney injury (VICKI) with ATN Acute kidney injury due to Other (please specify) Unable to determine Thank you, MAYANK Figueredo, RN Clinical Roaster Helper [phone] After business hours you may contact Joana Castillo at [phone] (Weekdays until 10 PM and weekends 8 AM -10 PM) Pain has been controlled throughout the night. FELIPA LIMA CSN [id number] 1955 DATE 06/16/2019 OPERATIVE REPORT SURGEON BRAD JOHNSON MD AUDIT OFFICER BERNARDINO GRAHAM MD, RESIDENT PREOPERATIVE DIAGNOSIS Perforated viscus. POSTOPERATIVE DIAGNOSIS Perforated duodenal ulcer PROCEDURE 1. Exploratory laparotomy 2. Abdominal lavage 3. Gadiel patch repair of perforated duodenal ulcer DRAINS 7 Fr CORY drain INDICATIONS FOR PROCEDURE The patient is a 63-year-old female, who presented to [place] as a transfer from outside hospital, complaining of abdominal pain for 1 week, which acutely worsened yesterday morning. CT imaging was obtained, which revealed inflammation around the duodenum and a small amount of pneumoperitoneum localized to the right upper quadrant. Upper GI was obtained, which was positive for gross extravasation into the right upper quadrant. The patient was suspected to have a duodenal perforation in the 1st portion of the duodenum and surgical intervention was discussed. She was willing to proceed after a detailed discussion of the risks and benefits of the operation was had. DESCRIPTION OF PROCEDURE The patient was brought to the operating room and positioned on the table in the supine position. After induction of general anesthesia, she was prepped and draped in the usual sterile fashion. A time-out was performed verifying the patient, procedure to be performed, indications for procedure, antibiotics, and sterility of equipment. An incision was made in the upper abdomen, extending from xiphoid to just above the umbilicus. Using electrocautery, the dissection was carried down to the fascia in the midline of the abdomen. The fascia was opened the full length of the incision, and immediately upon entering the abdomen, there was purulent fluid that was encountered. The upper abdomen was explored and all purulence was aspirated with a Canales-tip sucker. A [place] retractor was placed into the abdomen for optimal exposure, and the stomach was palpated to verify NG placement. The 1st portion of the duodenum was inspected and was found to have a large 2 cm anterior perforation with some indurated fat and omentum in the vicinity of the perforation. The tissue was extremely friable around the area of perforation and would not hold suture for primary closure. Using 2-0 silk sutures, 4 sutures were placed on either side of the duodenal perforation and laid open in preparation for a Gadiel patch repair. A tongue of omentum was created using the [employer] energy device. The tongue of omentum was carefully laid across the sutures on top of the duodenal perforation and gently tied snugly into place. A 7 Fr CORY drain was placed to the right of the repair and brought out through the skin on the right side. The rest of the abdomen was gently irrigated with saline irrigation, and any remaining fluid was aspirated. The fascia was then closed after ensuring hemostasis with 0 looped PDS suture, and the skin was closed with grecia. The patient tolerated the procedure well and was returned to the recovery room in stable condition. Dictated by BERNARDINO GRAHAM MD, RESIDENT BRAD JOHNSON MD D 06/16/2019 09:54 [id number] T 06/16/2019 13:06 MGK/MODL Associated attestation - Brad Johnson MD - 06/19/2019 8:09 AM EST Present/scrubbed for all critical portions of procedure Brad Johnson MD General Surgery, Trauma, and Surgical Critical Care [facility] c [phone] p [phone] Associated Problem(s): Kidney stones - Patient with a history of kidney stones, underwent removal/blasting of a stone in November at [facility] - CT revealed mild right hydro and possible stones (I will need to have Dr. Sommer review these films) - CRE 3.65 - Plan: Discussed patients history with her friend Diane over the phone who was very familiar with her medical history. We will plan to monitor her CRE, with her recent duodenal perforation it would be ideal to treat non-surgically. No acute intervention planned, Dr. Sommer to see later today. Brief Post Operative Note Patient Name: Felipa Lima : 1955 (63 y.o.) Date of Service: 06/16/2019 CSN: [id number] Procedure(s): EXPLORATORY LAPAROTOMY, GRAM PATCH REPAIR OF OF ULCER Pre-Operative Diagnoses: * PERFORATED DUODENAL ULCER Post-Operative Diagnoses: * Perforated duodenal ulcer (HCC) [K26.5] Surgeon(s) and Role: * Brad Johnson MD - Primary * Mihir Ngo MD - Resident - Assisting * Bernardino Graham MD - Resident - Clinic Anesthesiologist: Nito Nguyen MD Scrub Person: Clark Brand Tassel Snipper Orientee: Jose Coronado RN Tassel Snipper Preceptor: Jefry De León RN Operative findings: 2cm anterior perforation to first portion of duodenum Intra and immediate post-operative complications: none Type of anesthesia used: General Estimated blood loss: 15 mL Estimated urine output: Refer to surgical log Specimen(s): * No specimens in log * Implant(s): * No implants in log * Drain(s): Closed/Suction Drain 1 Right Abdomen 10 Fr. (Active) NG/OG Tube Nasogastric (Active) Wound(s): Wound 06/16/19 Surgical Wound Abdomen (Active) Bernardino Graham MD 06/16/2019 3:16 AM I personally interviewed the patient. I personally examined the patient. 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 I agree with the CELEBRITY CHEF ENTREPRENEUR MEDIA PERSONALITY/PA treatment plan. I agree with the CELEBRITY CHEF ENTREPRENEUR MEDIA PERSONALITY/PA plan of care. I agree with the CELEBRITY CHEF ENTREPRENEUR MEDIA PERSONALITY/PA dispo as documented. This patient was transferred after being found to have a bowel perforation as well as obstructing nephrolithiasis. She has a history of nephroliths requiring percutaneous nephrostomy. This patient is in mild distress at the time I saw her, she has no increased work of breathing or respiratory distress, is alert and appropriate. The CT that she had been transferred with does show hydronephrosis without suggestion of pyelonephritis, there is duodenal inflammation, the patient will need to see surgery tonight. Surgery will have a nasogastric tube placed in order to perform an upper GI study and will admit for further care. documented in this encounter Dilia Lim RN - 02/21/2020 3:38 PM EDTSDilia menchaca RN - 02/21/2020 3:35 PM EDT Nursing Notes (unrecognized section and content) Received SBAR from [facility]. Took over patient care. Gave discharge paperwork. Client does not have any questions about discharge instructions. documented in this encounter Source Comments (unrecognize d section and content) In the event this informatio n is protected by the Federal Confidentiality of Alcohol and Drug Abuse Patient Records regulations: The Federal rules restrict any use of the information to criminally investigate or prosecute any alcohol or drug abuse patient.[facility] the event this information is protected by the Federal Confidentiality of Alcohol and Drug Abuse Patient Records regulations: The Federal rules restrict any use of the information to criminally investigate or prosecute any alcohol or drug abuse patient.[facility] Care Teams (unrecognized sec tion and content) FOR RECORDS PERTAINING TO PATIENTS WHO ARE OR HAVE BEEN ENROLLED IN A CHEMICAL DEPENDENCY/SUBSTANCEABUSE PROGRAM, SOME INFORMATION MAY BE OMITTED. This clinical summary was aggregated from multiple sources. Caution should be exercised in using it in the provision of clinical care. This summary normalizes information from multiple sources, and as a consequence, information in this document may materially change the coding, format and clinical context of patient data. In addition, data may be omitted in some cases. CLINICAL DECISIONS SHOULD BE BASED ON THE PRIMARY CLINICAL RECORDS. [facility] [facility]. provides no warranty or guarantee of the accuracy or completeness of information in this document.
--- NOTE | 2023-06-25 08:00 | US_ITS ---
STUDY: ABDOMINAL ULTRASOUND - RIGHT UPPER QUADRANT REASON FOR VISIT: Female, 67 years old RUQ PAIN TECHNIQUE: Ultrasound evaluation of the right upper quadrant was performed with real-time and static glass-scale imaging. TECHNICAL QUALITY: Adequate. COMPARISON: CT abdomen October 20, 2021 FINDINGS: Liver: The liver measures 21.6 cm. There is increased echogenicity consistent with fatty infiltration. The bile ducts are within normal limits. There is hepatic color flow. The direction of portal flow is hepatopetal. There is no demonstrated mass lesion. Gallbladder: Normal distended gallbladder. The gallbladder wall measures 1.4 mm. There is a negative sonographic Rodriguez''s sign. There is no pericholecystic fluid. There are no gallstones. Common Bile Duct (C.B.D.): The common bile duct measures 3.2 mm. Pancreas: Normal size of the head, body and tail of the pancreas. There is increased echogenicity of the pancreas. There is no demonstrated pancreatic mass or cyst. Right Kidney: Normal size of the right kidney. The right kidney measures 10.1 x 5.6 x 6.7 cm. Normal renal cortex. The right cortex measures 1.3 cm. There is no demonstrated renal mass or cyst. There is mild hydronephrosis of the right kidney. Persistent stones in the right kidney with curvilinear appearance measuring 1.0 and 1.5 cm. There is a lobulated contour of the right kidney. US/Abdomen Limited IMPRESSION: Large fatty infiltrated liver. There is mild hydronephrosis. Persistent stones bordering the posterior calyces. Electronically Signed: Valeri Carrasquillo MD at 5:43 EST ,
== END | disposition home or self-care (01) ==
PROVIDERS: PCP Family Medicine; Referring Provider Family Medicine; Visit Provider Family Medicine
DX: R10.11 Right upper quadrant pain (principal)
CPT/HCPCS: 76705

== ENCOUNTER → 2024-07-04 | Outpatient (CLI) | payer MEDICARE, SELFPAY ==
--- NOTE | 2024-07-04 12:19 | BI_ITS ---
MAMMOGRAPHY - BILATERAL SCREENING REASON FOR EXAM: Female, 68 years old. Routine annual screening examination. PERTINENT HISTORY: Non-contributory. TECHNIQUE: Digital bilateral breast yessenia (3D mammographic acquisition) in the CC and MLO projections. 2-D mediolateral oblique (MLO) and craniocaudad (CC) views of both breasts were obtained. CAD: Full Field Digital Mammography with Computer Added Detection was performed. COMPARISON: Comparison is made with prior study dated October 14, 2022. FINDINGS: Breast Composition: There are scattered areas of fibroglandular density. There are no dominant masses or suspicious calcifications. Once again, there is asymmetry of breast tissue with more breast tissue is seen in the upper outer aspect of the left breast as compared to the right side. Stable small left axillary lymph nodes. No other significant abnormalities are identified. There has been no significant change since the prior study. BI/SCRN MAMM (CAD)W/YESSENIA BILAT IMPRESSION: Stable bilateral screening mammogram. Yearly follow-up mammogram recommended. (A) ASSESSMENT CATEGORY: BIRADS Category 2: Benign. A letter regarding these results will be sent to the patient by the facility within 30 days. Approximately 10% of breast cancers are not detected by mammography. A normal mammogram should not delay biopsy of a clinically suspicious abnormality. [id number] Electronically Signed: Liborio Lombardo MD at 13:01 EST ,
--- NOTE | 2024-07-04 12:19 | US_ITS ---
STUDY: THYROID ULTRASOUND REASON FOR EXAM: Female, 68 years old. Thyroid nodule. TECHNIQUE: Ultrasound evaluation of the thyroid was performed with real-time and static glass-scale imaging. COMPARISON: None. FINDINGS: RIGHT LOBE: The right lobe of the thyroid gland measures 4.4 cm and 1.8 cm x 1.8 cm. There is a homogeneous echotexture. There is a 1 cm x 0.9 cm x 1 cm slightly echogenic nodule in the upper pole. LEFT LOBE: The left lobe of the thyroid gland measures 4.4 cm x 2.1 cm x 2 cm. There is a heterogeneous echotexture. There is a 1.5 cm x 1.8 cm x 1.5 cm complex solid and cystic nodule in the lateral aspect of the lower pole of the left lobe. Biopsy recommended. ISTHMUS: The isthmus measures 1 mm. The regional lymph nodes are normal. US/Thyroid IMPRESSION: Complex nodule in the left lobe of the thyroid as described. Biopsy recommended. Electronically Signed: Liborio Lombardo MD at 9:02 EST ,
--- NOTE | 2024-07-04 12:22 | US_ITS ---
STUDY: SUPERFICIAL ULTRASOUND - UPPER LEFT THIGH. REASON FOR EXAM: Female, 68 years old. CONCERN FOR CYSTS/POCKETS OF INFECTION - THIGHS TECHNIQUE: A superficial ultrasound was performed with real-time and static glass-scale imaging. COMPARISON: None. FINDINGS: The upper anterior thigh at the site of the incision was examined. No residual fluid is seen. US/Ext Non Vasc Limited/Soft Tiss IMPRESSION: Unremarkable examination. Electronically Signed: Liborio Lombardo MD at 9:09 EST ,
== END | disposition home or self-care (01) ==
PROVIDERS: PCP Family Medicine; Referring Provider Family Medicine; Visit Provider Family Medicine
DX: Z12.31 Encounter for screening mammogram for malignant neoplasm of breast (principal)
CPT/HCPCS: 76536; 76882; 77063; 77067

== ENCOUNTER → 2024-07-17 | Outpatient (CLI) | payer MEDICARE, SELFPAY ==
[2024-07-17 12:50] LABS: Absolute Lymphocyte Count 0.81 X10^3/uL (0.83-4.51); Absolute Neutrophil Count 3.9 X10^3/uL (2.0-7.7); Basophil# 0.02 X10^3/uL; Basophil% 0.4 % (0-1); Eosinophil# 0.15 X10^3/uL; Eosinophils% 2.8 % (0-5); Hematocrit 41.2 % (37-47); Hemoglobin 12.9 g/dL (12.0-15.0); Lymphocyte # 0.81 X10^3/ul (0.83-4.51); Lymphocyte % 15.3 % (19-41); Mean Corp Hgb Conc 31.3 g/dL (32-36); Mean Corpuscular Volume 95.8 fL (81-99); Mean Platelet Vol. 10.7 fl (6.2-12.0); Monocyte% 7.5 % (0-10); NRBC Flagged by Analyzer 0 % (0-5); Neutrophil # 3.92 X10^3/uL (2.7-7.7); Neutrophil % 73.8 % (47-70); Platelet Count 195 K/mm3 (150-450); RBC Distribution Width CV 12.5 % (11.6-14.6); White Blood Count 5.3 K/mm3 (4.4-11.0)
[2024-07-17 13:16] LABS: ALB/GLOB Ratio 0.9 RATIO (0.9-2.4); AST(SGOT) 10 U/L (15-37); Alanine Aminotransfer ALT/SGPT 16 U/L (13-56); Albumin, Serum 3.5 g/dL (3.2-5.0); Alkaline Phosphatase 74 U/L (45-117); Anion Gap 6 (5-15); BUN 34 mg/dL (7-18); BUN/Creat Ratio 21.2 RATIO (10-20); Chloride 108 mmol/L (98-107); EST Glomerular Filtration Rate 34 mL/min (>60); Est Glom Filt Rate - Afr Amer 41 mL/min (>60); Globulin 3.8 g/dL (2.2-4.2); Glucose 112 mg/dL (74-106); Potassium 4.1 mmol/L (3.5-5.1); Protein, Total 7.3 g/dL (6.4-8.2); Sodium Level 140 mmol/L (136-145)
[2024-07-17 13:49] LABS: Hepatitis B Surface Antibody Non-Reactive; Hepatitis B Surface Antigen Non-Reactive (Nonreactive); Hepatitis C Antibody Non-Reactive (Nonreactive)
[2024-07-19 08:09] LABS: Hepatitis A AB, Total Negative (Negative); Hepatitis B Core Ab Total Negative (Negative)
== END | disposition home or self-care (01) ==
PROVIDERS: PCP Family Medicine; Referring Provider Nurse Practitioner Acute Care; Visit Provider Nurse Practitioner Acute Care
DX: K76.0 Fatty (change of) liver, not elsewhere classified (principal); Z80.0 Family history of malignant neoplasm of digestive organs; Z12.11 Encounter for screening for malignant neoplasm of colon; K22.70 Barrett's esophagus without dysplasia
CPT/HCPCS: 36415; 80053; 85025; 86704; 86706; 86708; 86803; 87340

== ENCOUNTER → 2024-07-30 | Outpatient (CLI) | payer MEDICARE, SELFPAY ==
--- NOTE | 2024-07-30 | FLU_PTH ---
PATIENT: FREDY CLAYTON LOC: [facility]#:[id number] AGE/SX: 68/F ROOM: RE07/30/[address]: Dr. Jose Rodríguez MD : 1955 BED: DIS: 07/30/2024 SPEC #: [id number] RECD: 07/30/24 15:02 STATUS: INDER JORDEN #: [id number] VIRI: 07/30/24 00:[address]: Jose Rodríguez DEPT: CYTOLOGY RECD BY: Shai Murphy ENTERED: 07/31/24 08:54 SP TYPE: Fluid OTHR DR: Dr. Kandace Katz MD Tissues: A - Thyroid gland, NOS B - Thyroid gland, NOS Procedures: Special Stain Group II Surgery Specimen Level IV Cytospin Fluid HEADER OPERATION: Fine needle aspiration of left thyroid nodule PRE-OP DIAGNOSIS: Left thyroid nodule TISSUE SUBMITTED: A- Left inferior thyroid nodule fluid, B- Left inferior thyroid slides DIAGNOSIS CYTOLOGY A. Left inferior thyroid nodule fluid, fine needle aspiration (cytospins and cellblock): Negative for malignant cells. See comment. B. Left inferior thyroid, fine needle aspiration (smears): Non diagnostic specimen, Tyler Category I. See comment. ASA.mr 08/01/2024 COMMENT A. Rare follicular cells and scant amount of colloid is noted. B. The specimen consists of rare follicular cells and scant amount of diluted colloid. The specimen is non-diagnostic due to lack of adequate number of follicular cells. The Tyler System for thyroid diagnostic categorization was used in the evaluation of this case. Correlation with clinical, radiologic findings and appropriate follow up are necessary. CYTOLOGY STUDY Slides are reviewed. CYTOLOGY GROSS A. Received is 40 ml of red-cloudy fluid labeled with the patient's name and and designated per the requisition as Left inferior thyroid nodule. Submitted for cytology preparation including cell block. B. Received are 6 smears labeled with the patient's name and designated per the requisition as Left inferior thyroid nodule. Submitted for staining. Mr 07/31/2024 TC: Can not code CPT: [id number]
[2024-07-30 15:31] LABS: Calcium,Total 9.5 mg/dL (8.5-10.1)
[2024-07-30 15:41] LABS: Vitamin D,25 Hydroxy 18.2 ng/mL
[2024-07-30 15:50] LABS: PTHIN 174.4 pg/mL (18.4-80.1)
== END | disposition home or self-care (01) ==
PROVIDERS: PCP Family Medicine; Referring Provider Surgery; Visit Provider Surgery
DX: E83.52 Hypercalcemia (principal); E04.1 Nontoxic single thyroid nodule
CPT/HCPCS: 36415; 82306; 82310; 83970; 88108; 88305; 88313

== ENCOUNTER 2024-09-05 05:22 | Day surgery (SDC) | payer MEDICARE, SELFPAY ==
[2024-09-05] VITALS (11 sets, daily range): BP systolic 75–132; BP diastolic 38–82; PULSE 57–64; RESP 16–18; TEMP 36.6–36.8; O2SAT 95–100; BMI 40.2
--- NOTE | 2024-09-05 06:02 | PRE.ANES_ITS ---
ASA Classification* ASA Classification ASA Classification: 3 (This is a 68 yo F with fatty liver disease, sandoval esophagus, hx of duodenal ulcers, right kidney stones, gerd, and stage 3 CKD presenting for EGD/colonoscopy.) Assessment & Plan Anesthesia* Anesthesia Assessment Anesthesia Assessment: Discussed sedation and/or anesthesia options, risks, benefits, and alternatives with patient/parents/legal guardian/POA. Questions invited. The patient/parents/legal guardian/POA seems to understand and agrees to proceed with anesthesia plan. Reviewed the physical assessment, medical history, allergy history and patient home medications list prior to surgery/procedure/anesthetic and documented any changes. Performed airway and anesthesia risk assessments. Anesthesia Type Anesthesia Type: General History Source History Obtained from:: Patient and Chart Anesthesia Focused Assessment* Temperature: 98.3 F Pulse Rate: 64 Blood Pressure: 102/64 Respiratory Rate: 18 Pulse Ox: 97 Oxygen Delivery Method: Room Air Airway Assessment Mouth opens: >3 cm Mallampati Score: III Teeth Condition: Intact Neck Range of motion (ROM): Full ROM Focused Labs Anesthesia Preop lab: CBC WBC 5.3 K/mm3 (4.4-11.0) 07/17/24 12:07 07/17/24 RBC 4.30 M/mm3 (4.2-5.4) 07/17/24 12:07/17/24 Hgb 12.9 g/dL (12.0-15.0) 07/17/24 12:07/17/24 Hct 41.2 % (37-47) 07/17/24 12:07/17/24 Plt Count 195 K/mm3 (150-450) 07/17/24 12:07 07/17/24 CHEMISTRY Potassium 4.1 mmol/L (3.5-5.1) 07/17/24 12:07/17/24 Sodium 140 mmol/L (136-145) 07/17/24 12:07/17/24 BUN 34 mg/dL (7-18) H 07/17/24 12:07 07/17/24 Creatinine 1.60 mg/dL (0.55-1.02) H 07/17/24 12:07 Glucose 112 mg/dL (74-106) H 07/17/24 12:07 07/17/24 COAG Pre-Assessment Diagnosis/Proposed Procedure Planned Operative Procedure(s): EGD/CSCOPE Anesthesia History 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 When Was Last Pacemaker Check QUESTION #4 FULL TEXT: You/Your Family Experience fever (hyperthermia) with Anesthesia Last Oral Intake Last Oral intake: Last Oral Intake NPO since 18:30 09/05/24 05:50 Meds taken in AM with sips of water? Meds patient instructed to take am of surgery PONV PONV - commercial loan analyst: PONV - commercial loan analyst Female Yes 08/31/24 12:44 HX of Motion Sickness No 08/31/24 12:44 HX of N/V After Surgery No 08/31/24 12:44 Non-Smoker Yes 08/31/24 12:44 Duration of Surgery greater No 08/31/24 12:44 than 60 minutes Number of Risk Factors 2 08/31/24 12:44 PONV Score Moderate Risk 08/31/24 12:44 Height & Weight Height & Weight: Anesthesia: Height & Weight Height 5 ft 3 in 09/05/24 05:50 Weight: 103 kg 09/05/24 05:50 Body Mass Index (BMI) 40.2 09/05/24 05:50 Respiratory Assessment Respiratory Assessment - commercial loan analyst: Respiratory Tract Infection Hx - commercial loan analyst Hx Respiratory Tract Infection No 08/31/24 12:44 STOP Sleep Apnea STOP Sleep Apnea - commercial loan analyst: STOP Sleep Apnea - commercial loan analyst Hx Hypertension No 08/31/24 12:44 Hx Sleep Apnea No 08/31/24 12:44 CPAP BIPAP Do you snore loudly (louder Yes 08/31/24 12:44 than talking or can be heard Do you often feel tired/ No 08/31/24 12:44 fatigued/ sleepy during daytime? Has anyone observed you stop No 08/31/24 12:44 breathing during sleep? STOP Results Negative 08/31/24 12:44 QUESTION #5 FULL TEXT : Do you snore loudly (louder than talking or can be heard through closed doors)? 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 Specify any problems Hx of Preganancy in last 3 No 08/31/24 12:44 Months Nurse Filling Out Transfusion DSCHRIBER 08/31/24 12:44 & Questions: Date: 08/31/24 08/31/24 12:44 Time: 12:46 08/31/24 12:44 Patient unable to answer at this time (ie. confused, unrespo /Reproduction History /Reproductive History - commercial loan analyst: /Reproductive Hx- commercial loan analyst Hx Now No 08/31/24 12:44 Gestational Age (in weeks): EDC: Hx Hx Para Hx Section SAB No 08/31/24 12:44 PFSH Medical History (Updated 08/31/24 @ 12:56 by Lydia Jones) Thyroid disease Arthritis Bladder disease Easy bruising Back pain Syncope History of hiatal hernia History of renal disease Leg cramps History of pain when walking Hx of lipoma Wears glasses Post-menopausal Former smoker Hydronephrosis, right Right ureteral calculus History of uterine leiomyoma Fatigue GERD (gastroesophageal reflux disease) Home Medications ?Medication ?Instructions ?Recorded ?Last Taken ?Type allopurinol 100 mg tablet 100 mg PO DAILY 10/13/2105/21 History sodium bicarbonate 650 mg tablet 650 mg PO TID 2 09/04/24 History pantoprazole 40 mg tablet,delayed 20 mg PO DAILY 07/1609/05/24 History release risankizumab-rzaa 150 mg/mL 150 mg subcut Q12W 5 Unknown History subcutaneous pen injector (Skyrizi) acetaminophen 500 mg capsule 500 mg PO Q6H PRN pain 09/04/24 History nitrofurantoin macrocrystal 100 mg 100 mg PO Q12H PRN BLADDER 07/17/24 Unknown History capsule oxybutynin chloride 10 mg 10 mg PO QDAY 07/17/2409/05 History tablet,extended release 24 hr Allergy/AdvReac Type Severity Reaction Status Date / Time cephalexin Allergy Severe Other Verified 09/05/24 05:48 Iodinated Contrast Media Allergy Mild rash Verified 09/05/24 05:48 latex Allergy Rash Verified 09/05/24 05:48 wool Allergy Rash Verified 09/05/24 05:48 codeine AdvReac Mild gi upset Verified 09/05/24 05:48 morphine AdvReac Mild gi upset Verified 09/05/24 05:48 Family History Father Diabetes Hypertension Cancer skin Mother Hypertension Brother Colon cancer Surgical History (Updated 08/31/24 @ 12:56 by Lydia Jones) History of bladder surgery History of incision and drainage History of esophagogastroduodenoscopy (EGD) Hx of biopsy History of surgery History of ureter stent Hx of foot surgery History of hysterectomy History of colonoscopy Social History Smoking Status: Former smoker how long ago did patient quit smokin years Review of Systems (Anesthesia) ROS Narrative System reviewed and no additional complaints, except as documented. Physical Exam Const alert and oriented x3 Nutritional Appearance: obese Resp normal respiratory effort, normal air movement and clear to auscultation bilaterally Cardio regular rate, regular rhythm, no murmurs and diaphoretic
--- NOTE | 2024-09-05 06:30 | COLBX_PTH ---
PATIENT: FREDY CLAYTON LOC: EN U#:[id number] AGE/SX: 68/F ROOM: RE09/05/[address]: Dr. Roderick Tang DO : 1955 BED: DIS: 09/05/2024 SPEC #: [id number] RECD: 09/05/24 12:11 STATUS: INDER REYasir #: [id number] VIRI: 09/05/24 06:[address]: Roderick Tang DEPT: SURGICAL PATHOLOGY RECD BY: Tanvi Ha ENTERED: 09/05/24 13:01 SP TYPE: COLON BX OTHR DR: Dr. Kandace Katz MD Tissues: A - Duodenum, NOS B - Esophagus, NOS C - COLON BIOPSY D - Cecum, NOS E - Sigmoid colon biopsy Procedures: Surgery Specimen Level IV HEADER OPERATION: Colonoscopy, EGD, hemostasis clip PRE-OP DIAGNOSIS: Metabolic dysfunction-associated steotactic liver disease, Moya's esophagus, Screen for colon cancer, family history of colon cancer TISSUE SUBMITTED: A- Duodenal mass biopsy, B- Distal esophagus biopsy, C- Hepatic flexure biopsy, D- Cecum biopsy, E- Sigmoid polyp biopsy MICROSCOPIC DIAGNOSIS A. Duodenum, mass, biopsy: * Gastric heterotopia. * Focal granulation tissue suggestive of ulceration. * No neoplasia seen. B. Distal esophagus, biopsy: * Columnar mucosa with reactive epithelial changes, negative for goblet cell metaplasia. * Focal scant squamous metaplasia. * Negative for dysplasia. C. Colon, hepatic flexure, biopsy: * Tubular adenoma. D. Colon, cecum, biopsy: * Tubular adenoma. E. Sigmoid colon, polyp, biopsy: * Tubular adenoma. MICROSCOPIC DESCRIPTION Slides are reviewed. GROSS DESCRIPTION A. Received in fixative is one container labeled with the patient's name and designated Duodenal mass biopsy. The specimen consists of multiple irregular fragments of light chinchilla soft tissue that in aggregate measure 0.9 x 0.5 x 0.2 cm. The specimen is totally submitted in one cassette. B. Received in fixative is one container labeled with the patient's name and designated Distal esophagus biopsy. The specimen consists of two irregular fragments of light chinchilla soft tissue that in aggregate measure 0.7 x 0.5 x 0.2 cm. The specimen is totally submitted in one cassette. C. Received in fixative is one container labeled with the patient's name and designated Hepatic flexure biopsy. The specimen consists of one irregular fragment of light chinchilla soft tissue that measures 0.4 x 0.4 x 0.2 cm. The specimen is totally submitted in one cassette. D. Received in fixative is one container labeled with the patient's name and designated Cecum biopsy. The specimen consists of multiple irregular fragments of light chinchilla soft tissue that in aggregate measure 0.7 x 0.5 x 0.1 cm. The specimen is totally submitted in one cassette. E. Received in fixative is one container labeled with the patient's name and designated Sigmoid polyp biopsy. The specimen consists of multiple irregular fragments of light chinchilla soft tissue that in aggregate measure 0.6 x 0.4 x 0.2 cm. The specimen is totally submitted in one cassette. 09/05/2024 CPT:45527m4
--- NOTE | 2024-09-05 06:55 | PCM.HP.STD ---
HPI - General General Date of Admission: 09/05/24 Date of Service: 09/05/24 Chief Complaint: sandoval's and CRS HPI Narrative Chief Complaint: Sandoval's, fatty liver, colon screening 68y/o female referred by Dr. Katz for Sandoval's, screening colonoscopy and fatty liver. PMH is significant for CKD3 and psoriasis. She reports a history of perforated duodenal ulcer in 2019 and Sandoval's esophagus diagnosed in 2019. ABD US performed May 2023 revealed hepatomegaly with liver steatosis. EGD 2020 Sandoval's EGD 2018 duodenal ulcer with hemorrhage and perforation HAV Total Ab: HBVsA10/20/2020 negative HBVsAb: 10/20/2020 negative HBV Core Ab Total: 10/27/2022 negative HCV Ab: 12/04/2018 negative CBC: January 2024 CMP: January 2024 ABD US: 06/25/[address] Chest/ABD/Pelvis w/o contrast 09/29/2023 hepatomegaly, splenomegaly, left thyroid nodule and pyelonephritis. HB well controlled on pantoprazole - denies any dysphagia - denies any N/V - denies any weight loss - pending thyroid nodule biopsy - reports no known cause of duodenal ulcer EtOH: once a year Family h/o liver disease: denies Tattoos - yes Brother with colon CA - diagnosed in 50's - reports her bowels are fairly regular - occasional diarrhea - denies any bleeding - reports she had a colonoscopy in her 20's - implant right hip to control bladder frequency Skyrizi for psoriasis [facility] Medical History Thyroid disease Arthritis Bladder disease Easy bruising Back pain Syncope History of hiatal hernia History of renal disease Leg cramps History of pain when walking Hx of lipoma Wears glasses Post-menopausal Former smoker Hydronephrosis, right Right ureteral calculus History of uterine leiomyoma Fatigue GERD (gastroesophageal reflux disease) Home Medications ?Medication ?Instructions ?Recorded ?Last Taken ?Type allopurinol 100 mg tablet 100 mg PO DAILY 10/13/21 09/04/24 History sodium bicarbonate 650 mg tablet 650 mg PO TID 10/13/21 09/04/24 History pantoprazole 40 mg tablet,delayed 20 mg PO DAILY 07/16/24 09/05/24 History release risankizumab-rzaa 150 mg/mL 150 mg subcut Q12W 07/16/24 Unknown History subcutaneous pen injector (Skyrizi) acetaminophen 500 mg capsule 500 mg PO Q6H PRN pain 07/17/24 09/04/24 History nitrofurantoin macrocrystal 100 mg 100 mg PO Q12H PRN BLADDER 07/17/24 Unknown History capsule oxybutynin chloride 10 mg 10 mg PO QDAY 07/17/24 09/05/24 History tablet,extended release 24 hr Allergy/AdvReac Type Severity Reaction Status Date / Time cephalexin Allergy Severe Other Verified 09/05/24 05:48 Iodinated Contrast Media Allergy Mild rash Verified 09/05/24 05:48 latex Allergy Rash Verified 09/05/24 05:48 wool Allergy Rash Verified 09/05/24 05:48 codeine AdvReac Mild gi upset Verified 09/05/24 05:48 morphine AdvReac Mild gi upset Verified 09/05/24 05:48 Family History Father Diabetes Hypertension Cancer skin Mother Hypertension Brother Colon cancer Surgical History History of bladder surgery History of incision and drainage History of esophagogastroduodenoscopy (EGD) Hx of biopsy History of surgery History of ureter stent Hx of foot surgery History of hysterectomy History of colonoscopy Social History Smoking Status: Former smoker how long ago did patient quit smokin years ROS Constitutional Constitutional: Denies fatigue, fever(s), poor appetite, weight gain or weight loss Gastrointestinal Gastrointestinal: Denies belching, bloating, change in bowel habits, change in stool character, chewing difficulty, coffee ground emesis, constipation, cramping, diarrhea, dyspepsia, dysphagia, early satiety, excessive flatus, fecal incontinence, heartburn, hematemesis, hematochezia, hemorrhoids, loose stools, melena, nausea, odynophagia, rectal bleeding, tenesmus, vomiting or weight changes Vital Signs Vital Signs Vital Signs: 09/05/24 05:50 09/05/24 05:50 09/05/24 06:13 Temperature 98.3 F 98.3 F Temperature Source Temporal Pulse Rate 64 64 Respiratory Rate 18 18 Respiratory Pattern Normal Blood Pressure 102/64 102/64 Blood Pressure Mean 76 Blood Pressure Source Monitor Blood Pressure Position Semi-Fowlers Blood Pressure Location Left Arm Pulse Ox 97 97 Oxygen Delivery Method Room Air Room Air Weight Weight: 227 lb 1.218 oz Body Mass Index (BMI) 40.2 Physical Exam Const alert, oriented x3, no apparent distress and healthy appearing General Appearance: cooperative GI normal to inspection, nondistended, normoactive bowel sounds, soft to palpation, non-tender and non-distended Percussion: normal to percussion Rectal Exam: deferred Assessment & Plan Assessment/Plan (1) Sandoval esophagus: QUALIFIERS: Sandoval's esophagus type: without dysplasia Qualified Code(s): K22.70 - 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 (2) Screen for colon cancer: PLAN: Plan Assessment and Plan Assessment and Plan (1) Metabolic dysfunction-associated steatotic liver disease (MASLD): Status: Acute (2) Sadnoval esophagus: Status: Acute Qualifiers: Sandoval's esophagus type: without dysplasia Qualified Code(s): K22.70 - 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 (3) Screen for colon cancer: Status: Acute (4) Family history of colon cancer: Status: Acute Comment: Brother in his early 50's Orders: Orders CBC W/Diff, Automated Today K22.70 - 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, K76.0 - Fatty (change of) liver, not elsewhere classified, Z12.11 - Encounter for screening for malignant neoplasm of colon, Z80.0 - Family history of malignant neoplasm of digestive organs Comprehensive Metabolic Profil Today K22.70 - 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, K76.0 - Fatty (change of) liver, not elsewhere classified, Z12.11 - Encounter for screening for malignant neoplasm of colon, Z80.0 - Family history of malignant neoplasm of digestive organs Hepatitis A AB, Total Today K22.70 - 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, K76.0 - Fatty (change of) liver, not elsewhere classified, Z12.11 - Encounter for screening for malignant neoplasm of colon, Z80.0 - Family history of malignant neoplasm of digestive organs Hepatitis B Core Ab Total Today K22.70 - 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, K76.0 - Fatty (change of) liver, not elsewhere classified, Z12.11 - Encounter for screening for malignant neoplasm of colon, Z80.0 - Family history of malignant neoplasm of digestive organs Hepatitis B Surface Antibody Today K22.70 - 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, K76.0 - Fatty (change of) liver, not elsewhere classified, Z12.11 - Encounter for screening for malignant neoplasm of colon, Z80.0 - Family history of malignant neoplasm of digestive organs Hepatitis B Surface Antigen Today K22.70 - 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, K76.0 - Fatty (change of) liver, not elsewhere classified, Z12.11 - Encounter for screening for malignant neoplasm of colon, Z80.0 - Family history of malignant neoplasm of digestive organs Hepatitis C Antibody Today K22.70 - 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, K76.0 - Fatty (change of) liver, not elsewhere classified, Z12.11 - Encounter for screening for malignant neoplasm of colon, Z80.0 - Family history of malignant neoplasm of digestive organs Medications: New peg 3350-electrolytes 236-22.74-6.74 -5.86 gram (Golytely) take as directed for split dose bowel prep 240 mL PO Q10M 4,000 mL 0RF Colonoscopy Plan 68y/o female referred by Dr. Katz for Sandoval's, screening colonoscopy and fatty liver. PMH is significant for CKD3 and psoriasis. She reports a history of perforated duodenal ulcer in 2018 and Sandoval's esophagus diagnosed in 2020. She denies any HB, N/V, dysphagia or weight loss. She is on pantoprazole 20mg daily and we have discussed indefinite use of PPI with known history of Sandoval's. I have scheduled her for an EGD as well as screening colonoscopy. Her family history is significant for brother with colon cancer. Prior imaging (US 2022/CT 2023) were revealing for hepatomegaly, liver steatosis and splenomegaly. We have reviewed MASLD and I have have ordered labs as well as FibroScan for additional evaluation. Elastography - Endovention ELF - Enhanced Liver Fibrosis (ELF)? Test CBC CMP Hepatitis panel EGD and Colonoscopy - Golyte bowel prep due to h/o CKD Indefinite use of PPI for Sandoval's Patient Instructions: (MASLD) Metabolic dysfunction-associated steatotic liver disease (MASLD) is a spectrum of disease that ranges from a more benign condition of nonalcoholic fatty liver (NAFL) to nonalcoholic steatohepatitis (INFANTE), which is at the more severe end of the spectrum. In NAFL, hepatic steatosis is present without evidence of inflammation, whereas in INFANTE, hepatic steatosis is associated with lobular inflammation and apoptosis that can lead to fibrosis and cirrhosis. Lifestyle modifications are the cornerstone of treatment for fatty liver disease. These include optimizing care for diabetes, high cholesterol and obesity. - Weight loss is the primary therapy for most patients with MASLD. We recommend weight loss for all patients with MASLD who are overweight (body mass index [BMI] =25 kg/m2) or have obesity (BMI =30 kg/m2) because fat accumulation in the liver leads to inflammation which leads to irreversible scarring. Unchecked liver inflammation and scarring can increase the risk of developing liver cancer and cardiovascular complications, such as heart attack and stroke. Weight loss can lead to improvement in liver biochemical tests, liver histology, serum insulin levels, and quality of life. Ideally, aim to lose between 5-10% of total body weight (1-2 lb per week) over the next 6 months. This can be achieved by adhering to a very low carbohydrate diet (60 g/day), high in lean protein and vegetables (variant of the Mediterranean diet). Reducing portion sizes can also make weight loss easier. Ecvp-ni-texuszcx intensity cardiovascular and/or resistance exercise (30 min, 3-4 days/week) paired with dietary modifications is helpful, as long as such an exercise regimen is permitted by your hvac services professional or primary care provider. Dietary counseling and/or a physician managed weight loss program is often extremely helpful in attaining this goal. - Small studies have shown that up to 3 cups of black coffee (no sugar, no cream) can be beneficial for liver health in patients with fatty liver. However, this should be avoided if coffee is a known trigger for gastrointestinal symptoms. - There is no known safe amount of alcohol use in fatty liver disease. Avoidance is recommended. - Smoking should also be avoided as it has been independently associated with the development of fatty liver disease and predisposes to insulin resistance and diabetes. Plan Details Follow Up: 3 Months
--- NOTE | 2024-09-05 07:47 | OP.CCLET_ITS ---
09/05/2024 Kandace Katz [place] [id number] [place] [address] Re : Upper GI endoscopy procedure for Felipa Lima Dear Dr. Katz This procedure was performed on Thursday, September 05, 2024. My impressions and recommendations are as follows: Impressions : - Z-line irregular, 39 cm from the incisors. Biopsied. - Medium-sized hiatal hernia. - Enlarged gastric folds. - A single duodenal polyp. Clip was placed. 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 Recommendations : - Discharge patient to home. - Resume previous diet. - Continue present medications. - Await pathology results. - Repeat upper endoscopy for surveillance based on pathology results. My findings are described in the full procedure note, which is enclosed. If I can be of further assistance, please feel free to contact me at . Sincerely, Roderick Friend, 09/05/2024 7:46:11 AM This report has been signed electronically.
--- NOTE | 2024-09-05 07:47 | OP.EGD_ITS ---
Patient Name: Felipa Lima Procedure Date: 09/05/2024 6:14 AM Date of : 1955 Age: 68 Procedure: Upper GI endoscopy Indications: Heartburn Providers: Roderick Tang DO Referring MD: Kandace Katz Medicines: Monitored Anesthesia Care Patient Profile: This is a 68 year old female. Refer to note in patient chart for documentation of history and physical. Patient has symptoms of chronic heartburn. Complications: No immediate complications. Procedure: Pre-Anesthesia Assessment: - Prior to the procedure, a History and Physical was performed, and patient medications and allergies were reviewed. The patient is competent. The risks and benefits of the procedure and the sedation options and risks were discussed with the patient. All questions were answered and informed consent was obtained. Patient identification and proposed procedure were verified by the physician in the pre-procedure area. Mental Status Examination: alert and oriented. Airway Examination: normal oropharyngeal airway and neck mobility. Respiratory Examination: clear to auscultation. CV Examination: normal. Prophylactic Antibiotics: The patient does not require prophylactic antibiotics. Prior Anticoagulants: The patient has taken no anticoagulant or antiplatelet agents. ASA Grade Assessment: II - A patient with mild systemic disease. After reviewing the risks and benefits, the patient was deemed in satisfactory condition to undergo the procedure. The anesthesia plan was to use monitored anesthesia care (MAC). Immediately prior to administration of medications, the patient was re-assessed for adequacy to receive sedatives. The heart rate, respiratory rate, oxygen saturations, blood pressure, adequacy of pulmonary ventilation, and response to care were monitored throughout the procedure. The physical status of the patient was re-assessed after the procedure. After obtaining informed consent, the endoscope was passed under direct vision. Throughout the procedure, the patient's blood pressure, pulse, and oxygen saturations were monitored continuously. The Colonoscope was introduced through the mouth, and advanced to the second part of duodenum. The upper GI endoscopy was accomplished without difficulty. The patient tolerated the procedure well. Scope In: 7:10:18 AM Scope Out: 7:22:38 AM Total Procedure Duration Time 0 hours 12 minutes 20 seconds Findings: The Z-line was irregular and was found 39 cm from the incisors. Biopsies were taken with a cold forceps for histology. Verification of patient identification for the specimen was done. Estimated blood loss was minimal. A medium-sized hiatal hernia was present. Diffuse prominent gastric folds were found in the entire examined stomach. A single 15 mm semi-pedunculated polyp with bleeding was found in the second portion of the duodenum. For hemostasis, one hemostatic clip was successfully placed. 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 There was no bleeding at the end of the procedure. Biopsies were taken with a cold forceps for histology. Verification of patient identification for the specimen was done. Estimated blood loss was minimal. Impression: - Z-line irregular, 39 cm from the incisors. Biopsied. - Medium-sized hiatal hernia. - Enlarged gastric folds. - A single duodenal polyp. Clip was placed. 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 Recommendation: - Discharge patient to home. - Resume previous diet. - Continue present medications. - Await pathology results. - Repeat upper endoscopy for surveillance based on pathology results. Procedure Code(s): --- Professional --- 45410, 59, Esophagogastroduodenoscopy, flexible, transoral; with control of bleeding, any method 05508, 51, Esophagogastroduodenoscopy, flexible, transoral; with biopsy, single or multiple CPT copyright 2021 [employer]. All rights reserved. The codes documented in this report are preliminary and upon biological science technician fish review may be revised to meet current compliance requirements. Roderick Tang DO 09/05/2024 7:46:11 AM This report has been signed electronically. Number of Addenda: 0 Note Initiated On: 09/05/2024 6:14 AM
--- NOTE | 2024-09-05 07:51 | OP.COLON_ITS ---
Patient Name: Felipa Lima Procedure Date: 09/05/2024 7:22 AM Date of : 1955 Age: 68 Procedure: Colonoscopy Indications: Screening for colorectal malignant neoplasm Providers: Roderick Tang DO Referring MD: Kandace Katz Medicines: Monitored Anesthesia Care Patient Profile: This is a 68 year old female. Refer to note in patient chart for documentation of history and physical. Patient has symptoms of chronic heartburn. Last Colonoscopy: date unknown. Unable to locate last colonoscopy report. Complications: No immediate complications. Procedure: Pre-Anesthesia Assessment: - Prior to the procedure, a History and Physical was performed, and patient medications and allergies were reviewed. The patient is competent. The risks and benefits of the procedure and the sedation options and risks were discussed with the patient. All questions were answered and informed consent was obtained. Patient identification and proposed procedure were verified by the physician in the pre-procedure area. Mental Status Examination: alert and oriented. Airway Examination: normal oropharyngeal airway and neck mobility. Respiratory Examination: clear to auscultation. CV Examination: normal. Prophylactic Antibiotics: The patient does not require prophylactic antibiotics. Prior Anticoagulants: The patient has taken no anticoagulant or antiplatelet agents. ASA Grade Assessment: II - A patient with mild systemic disease. After reviewing the risks and benefits, the patient was deemed in satisfactory condition to undergo the procedure. The anesthesia plan was to use monitored anesthesia care (MAC). Immediately prior to administration of medications, the patient was re-assessed for adequacy to receive sedatives. The heart rate, respiratory rate, oxygen saturations, blood pressure, adequacy of pulmonary ventilation, and response to care were monitored throughout the procedure. The physical status of the patient was re-assessed after the procedure. After I obtained informed consent, the scope was passed under direct vision. Throughout the procedure, the patient's blood pressure, pulse, and oxygen saturations were monitored continuously. The Colonoscope was introduced through the anus and advanced to the cecum, identified by appendiceal orifice and ileocecal valve. The colonoscopy was performed without difficulty. The patient tolerated the procedure well. The quality of the bowel preparation was adequate. The ileocecal valve, appendiceal orifice, and rectum were photographed. Scope In: 7:24:31 AM Scope Withdrawal Time 0 hours 11 minutes 30 seconds Scope Out: 7:39:25 AM Total Procedure Duration Time 0 hours 14 minutes 54 seconds Findings: The perianal and digital rectal examinations were normal. Multiple small and large-mouthed diverticula were found in the recto-sigmoid colon, sigmoid colon and descending colon. Two sessile polyps were found in the sigmoid colon and hepatic flexure. The polyps were 7 mm in size. These polyps were removed with a jumbo cold forceps. Resection and retrieval were complete. Verification of patient identification for the specimen was done. Estimated blood loss was minimal. A 9 mm polyp was found in the cecum. The polyp was sessile. The polyp was removed with a cold snare. Resection and retrieval were complete. Verification of patient identification for the specimen was done. Estimated blood loss was minimal. Stool was found in the cecum. There was a medium-sized lipoma, at the hepatic flexure. Impression: - Diverticulosis in the recto-sigmoid colon, in the sigmoid colon and in the descending colon. - Two 7 mm polyps in the sigmoid colon and at the hepatic flexure, removed with a jumbo cold forceps. Resected and retrieved. - One 9 mm polyp in the cecum, removed with a cold snare. Resected and retrieved. - Stool in the cecum. - Medium-sized lipoma at the hepatic flexure. Recommendation: - Discharge patient to home. - Resume previous diet. - Continue present medications. - Await pathology results. - Repeat colonoscopy in 3 years for surveillance. Procedure Code(s): --- Professional --- 70566, Colonoscopy, flexible; with removal of tumor(s), polyp(s), or other lesion(s) by snare technique 81378, 59, Colonoscopy, flexible; with biopsy, single or multiple CPT copyright 2021 [employer]. All rights reserved. The codes documented in this report are preliminary and upon diversified crops farmworker review may be revised to meet current compliance requirements. Roderick Tang DO 09/05/2024 7:50:20 AM This report has been signed electronically. Number of Addenda: 0 Note Initiated On: 09/05/2024 7:22 AM
--- NOTE | 2024-09-05 07:51 | OP.CCLET_ITS ---
09/05/2024 Kandace Katz [place] [id number] [address] Re : Colonoscopy procedure for Felipa Lima Dear Dr. Katz This procedure was performed on Thursday, September 05, 2024. My impressions and recommendations are as follows: Impressions : - Diverticulosis in the recto-sigmoid colon, in the sigmoid colon and in the descending colon. - Two 7 mm polyps in the sigmoid colon and at the hepatic flexure, removed with a jumbo cold forceps. Resected and retrieved. - One 9 mm polyp in the cecum, removed with a cold snare. Resected and retrieved. - Stool in the cecum. - Medium-sized lipoma at the hepatic flexure. Recommendations : - Discharge patient to home. - Resume previous diet. - Continue present medications. - Await pathology results. - Repeat colonoscopy in 3 years for surveillance. My findings are described in the full procedure note, which is enclosed. If I can be of further assistance, please feel free to contact me at . Sincerely, Roderick Tang, 09/05/2024 7:50:20 AM This report has been signed electronically.
--- NOTE | 2024-09-05 07:53 | PCM.POST.ANE ---
Anesthesia: Postop Eval I Current Vital Signs Temperature: 98.1 F Pulse Rate: 62 Blood Pressure: 77/53 Respiratory Rate: 16 Pulse Ox: 98 Oxygen Delivery Method: Room Air Assessment Airway patent: Yes Spontaneous unlabored respirations: Yes Mental status: Awake nausea: Yes Vomiting: No Anesthesia Complication: Yes Anesthesia Complication Comment:: pt hypotensive and reports nausea in PACU, consult with MD for fluid bolus Fluid Hydration Crystalloid volume administer (ml): 90 Total IV fluid infused: 90 Progress Note Anesthesia document: Postop Eval 1 completed: Yes
[2024-09-05] MEDS: 0.9% Normal Saline (500mL Bag) 500 ML 999 ML IV (08:04)
--- NOTE | 2024-09-05 10:55 | PCM.POSTANE2 ---
Anesthesia Postop Eval I Sum Postop Eval Completion status Anesthesia document: Postop Eval 1 completed: Yes Anesthesia Postop Eval I Summary Anesthesia Postop Eval I Summary: Anesthesia Postop Eval I: Assessment Summary Airway patent Yes 09/05/24 07:54 [email or web address] Spontaneous unlabored Yes 09/05/24 07:54 [email or web address] respirations Mental status Awake 09/05/24 07:54 [email or web address] nausea Yes 09/05/24 07:54 [email or web address] Vomiting No 09/05/24 07:54 [email or web address] Anesthesia Postop Eval I: Fluid Summary Crystalloid volume administer 90 09/05/24 07:54 [email or web address] (ml) Colloids volume administered ( ml) Blood Product volume administered (ml) Total IV fluid infused 90 09/05/24 07:54 [email or web address] Anesthesia Postop Eval I: Summary Notes Anesthesia Complication Yes 09/05/24 07:54 [email or web address] Anesthesia Complication pt hypotensive and 09/05/24 07:54 [email or web address] Comment: reports nausea in PACU, consult with MD for fluid bolus Post-operative progress note Anesthesia: Postop Eval II Evaluation Mental status: Awake Pain Level: 0 nausea: No Vomiting: No
--- NOTE | 2024-09-05 11:03 | EKG12_ITS ---
Test Reason : POST OP Blood Pressure : */* mmHG Vent. Rate : 59 BPM Atrial Rate : 59 BPM P-R Int : 126 ms QRS Dur : 72 ms QT Int : 468 ms P-R-T Axes : 23 -34 14 degrees QTcB Int : 463 ms Poor data quality, interpretation may be adversely affected Sinus bradycardia with occasional AV dual-paced complexes Left axis deviation Abnormal ECG No previous ECGs available Confirmed by TOYIN SAHU, ANCA ([id number]), makeup editor CROW REYES ([id number]) on 09/10/2024 1:46:13 PM Referred By: Kandace Katz Confirmed By: ANCA DEAL MD
== END 2024-09-05 09:18 | disposition home or self-care (01) ==
LOC: EN 05:23 → AC 05:25
PROVIDERS: PCP Family Medicine; Referring Provider Family Medicine; Visit Provider Internal Medicine Gastroenterology
PROC: 0DJD8ZZ Inspection of Lower Intestinal Tract, Via Natural or Artificial Opening Endoscopic (ICD-10-PCS; CPT 45378; principal; 2024-09-05 06:25)
DX: Z12.11 Encounter for screening for malignant neoplasm of colon (principal); N18.30 Chronic kidney disease, stage 3 unspecified; K44.9 Diaphragmatic hernia without obstruction or gangrene; Z87.891 Personal history of nicotine dependence; K22.70 Barrett's esophagus without dysplasia; K57.30 Diverticulosis of large intestine without perforation or abscess without bleeding; K76.0 Fatty (change of) liver, not elsewhere classified; K31.7 Polyp of stomach and duodenum; Z80.0 Family history of malignant neoplasm of digestive organs; R12 Heartburn; Z90.710 Acquired absence of both cervix and uterus; D12.3 Benign neoplasm of transverse colon; D12.0 Benign neoplasm of cecum; D12.5 Benign neoplasm of sigmoid colon
CPT/HCPCS: 45385; 45380; 43239; 43255; 88305; 93005; A4216; J2405

== ENCOUNTER → 2024-09-14 | Outpatient (CLI) | payer MEDICARE, SELFPAY | END | disposition home or self-care (01) | PROVIDERS: PCP Family Medicine; Referring Provider Nurse Practitioner Acute Care; Visit Provider Nurse Practitioner Acute Care | DX: K76.0 Fatty (change of) liver, not elsewhere classified (principal) ==

== ENCOUNTER → 2024-11-13 | Outpatient (CLI) | payer MEDICARE, SELFPAY ==
[2024-11-15 13:08] LABS: QNTFERON TB Mitogen Value 2.94 IU/mL (.); QNTFERON TB Nil Value 0.04 IU/mL (.); QNTFERON TB1+ Ag Value 0.04 IU/mL (.); QNTFERON TB2+ Ag Value 0.05 IU/mL (.); QNTIFERON TB Positive Criteria Negative (Negative)
== END | disposition home or self-care (01) ==
LOC: MTLAB 13:15
PROVIDERS: PCP Family Medicine; Referring Provider Physician Assistant Medical; Visit Provider Physician Assistant Medical
DX: L40.0 Psoriasis vulgaris (principal); L40.59 Other psoriatic arthropathy; Z79.899 Other long term (current) drug therapy; L71.8 Other rosacea; L72.0 Epidermal cyst
CPT/HCPCS: 36415; 86480

== ENCOUNTER 2024-12-26 05:24 | Day surgery (SDC) | payer MEDICARE, SELFPAY ==
--- NOTE | 2024-12-24 15:24 | PAT.ANE_ITS ---
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 When Was Last Pacemaker Check QUESTION #4 FULL TEXT: You/Your Family Experience fever (hyperthermia) with Anesthesia Last Oral Intake Last Oral intake: Last Oral Intake NPO since Meds taken in AM with sips of water? 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 machine setter: PONV - cnc machine setter Female Yes 12/24/24 14:47 HX of Motion Sickness No 12/24/24 14:47 HX of N/V After Surgery No 12/24/24 14:47 Non-Smoker Yes 12/24/24 14:47 Duration of Surgery greater No 12/24/24 14:47 than 60 minutes Number of Risk Factors 2 12/24/24 14:47 PONV Score Moderate Risk 12/24/24 14:47 Height & Weight Height & Weight: Anesthesia: Height & Weight Height 5 ft 3 in 09/25/24 10:39 Respiratory Assessment Respiratory Assessment - cnc machine setter: Respiratory Tract Infection Hx - cnc machine setter Hx Respiratory Tract Infection No 12/24/24 14:47 STOP Sleep Apnea STOP Sleep Apnea - cnc machine setter: STOP Sleep Apnea - cnc machine setter Hx Hypertension No 12/24/24 14:47 Hx Sleep Apnea No 12/24/24 14:47 CPAP BIPAP Do you snore loudly (louder No 12/24/24 14:47 than talking or can be heard Do you often feel tired/ No 12/24/24 14:47 fatigued/ sleepy during daytime? Has anyone observed you stop No 12/24/24 14:47 breathing during sleep? STOP Results Negative 12/24/24 14:47 QUESTION #5 FULL TEXT : Do you snore loudly (louder than talking or can be heard through closed doors)? 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 Specify any problems Hx of Preganancy in last 3 N/A 12/24/24 14:47 Months Nurse Filling Out Transfusion [email or web address] 12/24/24 14:47 & Questions: Date: 12/24/24 12/24/24 14:47 Time: 14:49 12/24/24 14:47 Patient unable to answer at this time (ie. confused, unrespo /Reproduction History /Reproductive History - cnc machine setter: /Reproductive Hx- cnc machine setter Hx Now Gestational Age (in weeks): EDC: Hx Hx Para Hx Section SAB No 08/31/24 12:44 PFSH Medical History (Updated 12/24/24 @ 14:53 by Maurizio Dinh) Wears contact lenses Thyroid disease Arthritis Bladder disease Easy bruising Back pain Syncope History of hiatal hernia History of renal disease Leg cramps History of pain when walking Hx of lipoma Wears glasses Post-menopausal Former smoker Hydronephrosis, right Right ureteral calculus History of uterine leiomyoma Fatigue GERD (gastroesophageal reflux disease) Home Medications ?Medication ?Instructions ?Recorded ?Last Taken ?Type allopurinol 100 mg tablet 100 mg PO DAILY 10/13/2105/21 History sodium bicarbonate 650 mg tablet 650 mg PO TID 2 09/04/24 History risankizumab-rzaa 150 mg/mL 150 mg subcut Q12W 5 Unknown History subcutaneous pen injector (James) acetaminophen 500 mg capsule 500 mg PO Q6H PRN pain 09/04/24 History nitrofurantoin macrocrystal 100 mg 100 mg PO Q12H PRN BLADDER 07/17/24 Unknown History capsule oxybutynin chloride 10 mg 10 mg PO QDAY 07/17/2409/05 History tablet,extended release 24 hr pantoprazole 40 mg tablet,delayed 40 mg PO QDAY #180 t abs 09/25/24 Unknown Rx release spironolactone 25 mg tablet 25 mg PO DAILY PRN PER DR 12/24/24 Unknown History Allergy/AdvReac Type Severity Reaction Status Date / Time cephalexin Allergy Severe Other Verified 12/24/24 14:45 Iodinated Contrast Media Allergy Mild rash Verified 12/24/24 14:45 latex Allergy Rash Verified 12/24/24 14:45 wool Allergy Rash Verified 12/24/24 14:45 codeine AdvReac Mild gi upset Verified 12/24/24 14:45 morphine AdvReac Mild gi upset Verified 12/24/24 14:45 Family History Father Diabetes Hypertension Cancer skin Mother Hypertension Brother Colon cancer Surgical History (Updated 12/24/24 @ 14:53 by Maurizio Dinh) History of bladder surgery History of incision and drainage History of esophagogastroduodenoscopy (EGD) Hx of biopsy History of surgery History of ureter stent Hx of foot surgery History of hysterectomy History of colonoscopy Social History Smoking Status: Former smoker how long ago did patient quit smokin years Audit: Pertinent Findings Pertinent Findings EKG Perinent findings: 09/05/2024. Sinus bradycardia with occasional AV dual paced complexes. Left axis deviation. Recommendation Anesthesia Recommendation Anesthesia recommendation: OPTIMIZED for anesthesia
[2024-12-26] VITALS (8 sets, daily range): BP systolic 116–138; BP diastolic 70–75; PULSE 67–76; RESP 14–18; TEMP 36.1–36.5; O2SAT 95–98; BMI 42.6
--- OUTSIDE RECORDS SUMMARY | 2024-12-26 05:29 | XMS RPT_ITS | CCD ---
Author Organization [facility] Care Team Providers Care Model Maker Name Role Phone LORENA BEASLEY Attending Unavailable KANDACE KATZ Primary Care Unavailable FERNANDO TO Attending Unavailable KANDACE KATZ Primary Care Unavailable FERNANDO TO Attending Unavailable KANDACE KATZ Primary Care Unavailable Kandace Katz Primary Care Provider Unavailab le Kandace Katz Primary Care Provider Unavailab le SAVANNA LACEY Admitting Unavailable SAVANNA LACEY Referring Unavailable WING KATZNAMoses Hidalgo Primary Care Unavailable KANDACE KATZ Primary Care Unavailable GIANNA, KANDACE E Primary Care Unavailable TU, MESSI Attending Unavailable TU, MESSI Admitting Unavailable KANDACE KATZ Primary Care Unavailable TU, MESSI Attending Unavailable TU, MESSI Admitting Unavailable Unavailable Primary Care Provider UnavailDr. Kandace Calero Primary Care Provider Dr. Kandace Katz Referring Provider Dr. Marco Antonio Samuel Attending Provider Dr. Marco Antonio Samuel Referring Provider Dr. Marco Antonio Samuel Other Provider [phone] Kandace Katz MD Primary Care Provider KANDACE KATZ Consulting Unavailable ALISHA NICKERSON MD Attending Unava ilALISHA Serrano MD Primary Care Unava ilable ALISHA NICKERSON MD Admitting Unava ilable PROVIDER, UNKNOWN Consulting Unavailable PROVIDER, UNKNOWN Consulting Unavailable ALISHA NICKERSON MD Primary Care Unava ilable BUCKTOWARSINJesica, ALISHA SAHU Admitting Unava ilable BUCKTOWARSINJesica, ALISHA SAHU Attending Unava ilable KANDACE KATZ Consulting Unavailable PROVIDER, UNKNOWN Consulting Unavailable PROVIDER, UNKNOWN Consulting Unavailable ALISHA NICKERSON MD Primary Care Unava ilable BUCKSERGIOWARABIODUN, ALISHA SAHU Admitting Unava ilable BUCKTOWARSINeJsica, ALISHA SAHU Attending Unava ilable MIEDEL, KANDACE Consulting Unavailable PROVIDER, UNKNOWN Consulting Unavailable PROVIDER, UNKNOWN Consulting Unavailable PORSHA TRAMMELL Admitting Unavailable VALERI PORSHA E Attending Unavailable VALERI PORSHA E Primary Care Unavailable MIEDEL, KANDACE Consulting Unavailable PROVIDER, UNKNOWN Consulting Unavailable PROVIDER, UNKNOWN Consulting Unavailable MIEDJEFFREY, KANDACE Primary Care Unavailable MIDARRYN, KANDACE Admitting Unavailable MIEDJEFFREY, KANDACE Attending Unavailable MIEDEL, KANDACE Consulting Unavailable PROVIDER, UNKNOWN Consulting Unavailable PROVIDER, UNKNOWN Consulting Unavailable GIANNA, KANDACE Referring Unavailable SARIAH SANTIAGO MD Admitting Unavailable SARIAH SANTIAGO MD Attending Unavailable SARIAH SANTIAGO MD Primary Care Unavailable MIEDEL, KANDACE Consulting Unavailable PROVIDER, UNKNOWN Consulting Unavailable PROVIDER, UNKNOWN Consulting Unavailable Dr. Kandace Katz MD Primary Care Provider Dr. Kandace Katz MD Attending Provider [phone] Dr. Kandace Katz MD Referring Provider [phone] Marco Antonio [facility] Attending Provider Babs Sanchez Referring Provider Dr. Jose Rodríguez MD Attending Provider Dr. Jose Rodríguez MD Referring Provider Dr. Roderick Tang DO Attending Provider Dr. Roderick Tang DO Other Provider Dr. Sandro Bermudez MD Attending Provider Dr. Aman Ponce MD Referring Provider PORSHA TRAMMELL Admitting Unavailable PORSHA TRAMMELL Attending Unavailable MIEDEL, KANDACE E Primary Care Unavailable PORSHA TRAMMELL Attending Unavailable MIEDEL, KANDACE E Primary Care Unavailable JULIA SUARZE Attending Unavailable MIEDEL, KANDACE E Primary Care Unavailable KONOVSKY, JULIA Referring Unavailable MIEDEL, KANDACE E Primary Care Unavailable KONOVSKY, JULIA Referring Unavailable MIEDEL, KANDACE E Primary Care Unavailable PORSHA TRAMMELL Attending Unavailable MIEDEL, KANDACE E Primary Care Unavailable FAITH PADRON Attending Unavailable MIEDEL, KANDACE E Primary Care Unavailable Gianna SAHU, Dr. Jeronimo Primary Care Provider Dr. Kandace Katz MD Referring Provider Dr. Eric Sampson MD Attending Provider Gianna SAHU, Dr. Jeronimo Primary Care Provider Dr. Kandace Katz MD Referring Provider Marco Antonio [facility] Attending Provider Marco Antonio UROLOGIC SURGEON[facility] Referring Provider Maxx Rosen Attending Provider Maxx Rosen Referring Provider [phone] Jose Rodríguez Attending Unavailable Jose Rodríguez Referring Unavailable Miedel, Kandace Primary Care Unavailable Babs Bernard Referring Unavailable Babs Bernard Attending Unavailable Miedel, Kandace Primary Care Unavailable Maxx Rosen Attending Unavailable Maxx Rosen Referring Unavailable Miedel, Kandace Primary Care Unavailable Miedel, Kandace Primary Care Unavailable Friend, Roderick Attending Unavailable Miedel, Kandace Referring Unavailable Friend, Roderick Attending Unavailable Miedel, Kandace Referring Unavailable Miedel, Kandace Primary Care Unavailable Eric Sampson Attending Unavailable Miedel, Kandace Referring Unavailable Miedel, Kandace Primary Care Unavailable Miedel, Kandace Primary Care Unavailable Babs Bernard Attending Unavailable Miedel, Kandace Referring Unavailable Jose Rodríguez Attending Unavailable Miedel, Kandace Referring Unavailable Miedel, Kandace Primary Care Unavailable Aman Ponce Referring Unavailable Sandro Bermudez Attending Unavailable Miedel, Kandace Primary Care Unavailable FriendRoderick Consulting Unavailable Friend, Roderick Attending Unavailable Miedel, Kandace Referring Unavailable Miedel, Kandace Primary Care Unavailable Babs Bernard Attending Unavailable Miedel, Kandace Referring Unavailable Miedel, Kandace Primary Care Unavailable Miedel, Kandace Primary Care Unavailable Miedel, Kandace Attending Unavailable Miedel, Kandace Referring Unavailable Miedel, Kandace Primary Care Unavailable Babs Bernard Referring Unavailable Babs Bernard Attending Unavailable Allergies Allergy Classification Reported Allergen(s) Allergy Type Date of Onset Reaction(s) Facility (20 sources) Codeine; Translations: [Unknown] Drug Allergy 9 GI Intolerance [facility] (20 sources) Morphine; Translations: [MORPHINE] Drug Allergy 9 GI Intolerance [facility] (13 sources) Ct: Iodinated Contrast- Oral And Iv Dye; Translations: [CT: IODINATED CONTRAST- ORAL AND IV DYE] Propensity to adverse reactions to drug 9 Hives [facility] (13 sources) Iodinated Contrast Media; Translations: [IODINATED CONTRAST MEDIA] Allergy to substance 9 [facility] (10 sources) Latex; Translations: [LATEX] Allergy to substance 2 [facility] (11 sources) wool; Translations: [WOOL] Allergy to substance 2 [facility] (1 source) Contrast media Drug allergy (disorder) [facility] Repository (1 source) Morphine Drug Allergy [facility] (5 sources) Cephalexin; Translations: [CEPHALEXIN] Drug Allergy 4 Other [facility] Comment on above: skin started to peel off (1 source) GADOLINIUM-CONT AINING CONTRAST MEDIA; Translations: [GADOLINIUM-CON TAINING CONTRAST MEDIA] Propensity to adverse reactions to drug (disorder) 3 [facility] Repository (1 source) Cephalexin Drug Allergy 5 [facility] Repository (1 source) Latex Drug allergy (disorder) 5 [facility] (1 source) Morphine Drug Allergy 5 [facility] Repository Medications Current Medications Medication Drug Class(es) Dates Sig (Normalized) Sig (Original) acetaminophen 500 mg oral capsule (7 sources) Start: 07-17-2024 take 1 capsule by mouth every six hours as needed for pain Acetaminophen 500 mg capsule Active 500 mg PO EVERY 6 HOURS as needed for pain July 17, 2024 1:00am Start: 07-29-2020 End: 07-29-2020 take 1 tablet by mouth every six hours as needed acetaminophen (TYLENOL) tablet 650 mg Start: 06-22-2019 End: 06-23-2019 acetaminophen (TYLENOL) tabl et 650 mg Start: 06-16-2019 End: 06-16-2019 take 1 dose by mouth once 1,000 mg, Intravenous, at 40 0 mL/hr, Once, 06/16/19 at 0515, For 1 dose, PACU to Post Procedure Oral or IV: Use ORAL route if tolerated. If patient is unable to take medications orally, give IV acetaminophen instead. (weight EQUAL to or GREATER than 50 kg) Restricted to: Unable to tolerate oral route Restricted to: Post-Procedure allopurinol 100 mg oral tablet (11 sources) Xanthine Oxidase Inhibitor Start: 10-13-2021 take 1 tablet by mouth once daily Allopurinol 100 mg tablet Active 100 mg PO DAILY October 13, 2021 12:00am furosemide 20 mg oral tablet (11 sources) Loop Diuretic Start: 10-13-2021 Furosemide Act bowen EACH PO October 13, 2021 9:21am Start: 10-13-2021 End: 07-16-2024 Furosemide 20 mg tablet Disc ontinued 20 mg PO NEEDED as needed for Edema October 13, 2021 12:00am July 16, 2024 2:16pm nitrofurantoin, macrocrystals 100 mg oral capsule (4 sources) Nitrofuran Antibacterial Start: 07-17-2024 take 1 capsule by mouth every twelve hours at mealtime Nitrofurantoin Macrocrystal 100 mg capsule Active 100 mg PO Q12H as needed for BLADDER July 17, 2024 1:00am must administer with a meal/food 24 hr oxybutynin chloride 10 mg extended release oral tablet (4 sources) Cholinergic Muscarinic Antagonist Start: 07-17-2024 take 1 tablet by mouth once daily Oxybutynin Chloride 10 mg tablet extended release 24hr Active 10 mg PO daily July 17, 2024 1:00am oxyCODONE hydrochloride 5 mg oral tablet (2 [...] pantoprazole 40 mg delayed release oral tablet (20 sources) Proton Pump Inhibitor Start: 09-25-2024 take 1 tablet by mouth once daily Pantoprazole 40 mg tablet,delayed release (DR/EC) Active 40 mg PO daily 180 September 25, 2024 12:00am Start: 07-16-2024 End: 09-25-2024 Pantoprazole 40 mg tablet,de layed release (DR/EC) Discontinued 20 mg PO DAILY July 16, 2024 2:17pm September 25, 2024 11:03am Start: 10-13-2021 End: 07-16-2024 take 1 tablet by mouth once daily Pantoprazole 40 mg tablet,delayed release (DR/EC) Discontinued 40 mg PO DAILY October 13, 2021 12:00am July 16, 2024 2:18pm Start: 07-29-2020 End: 08-28-2020 take 1 tablet by mouth once daily pantoprazole (PROTONIX) 40 MG tablet Take 1 (one) tablet (40 mg total) by mouth daily . 30 tablet 12 07/29/2020 Active Start: 07-10-2019 End: 07-29-2020 take 1 tablet by mouth twice daily pantoprazole (PROTONIX) 40 MG tablet Take 1 (one) tablet (40 mg total) by mouth 2 (two) times a day . 60 tablet 6 07/10/2019 07/29/2020 Discontinued (Reorder) Start: 06-23-2019 End: 07-23-2019 take 1 tablet by mouth once daily pantoprazole (PROTONIX) 40 MG tablet Take 1 (one) tablet (40 mg total) by mouth daily . 30 tablet 0 06/23/2019 07/10/2019 Discontinued (Reorder) Start: 06-23-2019 End: 06-23-2019 take 1 tablet by mouth twice daily pantoprazole (PROTONIX) 40 MG tablet Take 1 (one) tablet (40 mg total) by mouth 2 (two) times a day . 60 tablet 0 06/23/2019 06/23/2019 Discontinued (Stop Taking at Discharge) Start: 06-15-2019 End: 06-23-2019 40 mg, Intravenous, 2 times daily, First dose on 06/16/19 at 0900 Resmetirom (Rezdiffra) 100 mg tablet (1 source) Start: 11-20-2024 take 1 tablet by mouth once daily Resmetirom (Rezdiffra) 100 mg tablet Active 100 mg PO daily November 20, 2024 12:00am Faxed to [facility] (4 sources) Start: 07-16-2024 Risankizumab-R zaa (Nandiniizi) 150 mg/mL pen injector Active 150 mg SC every 12 weeks July 16, 2024 1:00am sodium bicarbonate 650 mg oral tablet (11 sources) Start: 10-13-2021 take 650 mg by mouth once daily Sodium Bicarbonate Active 650 MG PO DAILY October 13, 2021 9:21am Start: 10-13-2021 take 1 tablet by komal three times daily Sodium Bicarbonate 650 mg tablet Active 650 mg PO THREE TIMES A DAY October 13, 2021 12:00am spironolactone 25 mg oral tablet (1 source) Aldosterone Antagonist Start: 11-13-2024 take 1 tablet by mouth once daily Spironolactone 25 mg tablet Active 25 mg PO DAILY November 13, 2024 12:00am Hold if serum potassium more than 5.1. Completed/Discontinued Medications Medication Drug Class(es) Dates Sig (Normalized) Sig (Original) albuterol 0.83 mg/ml inhalant solution (1 source) beta2-Adrenergic Agonist Start: 07-29-2020 End: 07-29-2020 take 2.5 mg by inhalation every twenty-four hours as needed albuterol (PROVENTIL) 2.5 mg /3 mL (0.083 %) nebulizer solution 2.5 mg albuterol 0.833 mg/ml / ipratropium bromide 0.167 mg/ml inhalant solution (1 source) Anticholinergic, beta2-Adrenergic Agonist Start: 07-29-2020 End: 07-29-2020 take 3 mL by inhalation every twenty-four hours as needed ipratropium-albut Lisa (DUO-NEB) 0.5-2.5 mg/3 ml nebulizer solution 3 mL calcium carbonate 1250 mg oral tablet (1 source) Start: 06-22-2019 End: 06-23-2019 calcium carbonate (OS-MARCELLA) tablet 500 mg of calcium calcium chloride 0.001 meq/ml / glucose 50 mg/ml / potassium chloride 0.004 meq/ml / sodium chloride 0.103 meq/ml / sodium lactate 0.028 meq/ml injectable solution (2 sources) Start: 06-16-2019 End: 06-20-2019 take 125 mL intravenous route every hour 125 mL/hr, Intravenous, Continuous, Starting 06/16/19 at 0515 Start: 06-15-2019 End: 06-16-2019 dextrose 5 % in lactated rin gers infusion calcium chloride 0.0014 meq/ml / potassium chloride 0.004 meq/ml / sodium chloride 0.103 meq/ml / sodium lactate 0.028 meq/ml injectable solution (4 sources) Start: 06-15-2019 End: 06-17-2019 lactated ringers bolus 1,000 mL cholecalciferol 0.125 mg oral capsule (11 sources) Vitamin D Start: 10-13-2021 End: 07-16-2024 take 1 capsule by mouth twice daily Cholecalciferol (Vitamin D3) 125 mcg (5,000 unit) capsule Discontinued 125 ug PO TWICE A DAY October 13, 2021 12:00am July 16, 2024 2:16pm dextrose 5 % and sodium chloride 0.45 % 1,000 mL with potassium chloride 10 mEq infusion (1 source) Start: 06-20-2019 End: 06-22-2019 dextrose 5 % and sodium chloride 0.45 % 1,000 mL with potassium chloride 10 mEq infusion diphenhydrAMINE (2 sources) Histamine-1 Receptor Antagonist Start: 06-21-2019 End: 06-23-2019 diphenhydrAMINE (BENADRYL) injection 50 mg Start: 06-15-2019 End: 06-15-2019 diphenhydrAMINE (BENADRYL) i njection 25 mg 20 ml fentaNYL 0.05 mg/ml injection (1 source) Opioid Agonist Start: 06-16-2019 End: 06-16-2019 25 mcg, Intravenous, Every 5 min PRN, moderate to severe pain, Starting 06/16/19 at 0248, For 4 doses, PACU (only) [] Do not give more than 100 mcg while in PACU. ferrous sulfate 325 mg oral tablet (11 sources) Start: 10-13-2021 End: 07-16-2024 take 1 tablet by mouth twice daily Ferrous Sulfate 325 mg (65 mg iron) tablet Discontinued 325 mg PO TWICE A DAY October 13, 2021 12:00am July 16, 2024 2:16pm 1 ml heparin sodium, porcine 5000 unt/ml injection (1 source) Unfractionated Heparin, Anti-coagulant Start: 06-16-2019 End: 06-23-2019 inject 5000 [IU] by subcutaneous injection every eight hours 5,000 Units, Subcutaneous, Every 8 hours scheduled, First dose on 06/16/19 at 0600 Notify physician if patient refuses. hydrocortisone 100 mg injection (1 source) Corticosteroid Start: 06-15-2019 End: 06-15-2019 hydrocortisone sod succ (SOLU-CORTEF) injection 200 mg 0.5 ml HYDROmorphone hydrochloride 1 mg/ml prefilled syringe (1 source) Opioid Agonist Start: 06-16-2019 End: 06-22-2019 take 0.25-0.5 mg intravenous route every three hours as needed 0.25-0.5 mg, Intravenous, Every 3 hours PRN, moderate to severe pain, Starting 06/16/19 at 0426 [] Initiate with 0.25 mg IV every 3 hours prn moderate to severe pain. [] For unrelieved pain, may repeat 0.25 mg IV dose within 30 minutes of initial dose. [] If pain is RELIEVED after repeat dose, change to 0.5 mg IV every 3 hours prn moderate to severe pain. [] If pain is UNrelieved after repeat dose, or patient requires dose reduction, call physician. [] May use IV for breakthrough pain or if unable to tolerate oral route. iopamidol (ISOVUE-370) 76 % injection 100 mL (2 sources) Start: 06-21-2019 End: 06-21-2019 iopamidol (ISOVUE-370) 76 % injection 100 mL Start: 06-15-2019 End: 06-15-2019 iopamidol (ISOVUE-370) 76 % injection 100 mL iopamidol (ISOVUE-370) 76 % injection 50 mL (2 sources) Start: 06-15-2019 End: 06-15-2019 iopamidol (ISOVUE-370) 76 % injection 50 mL Start: 06-15-2019 End: 06-15-2019 iopamidol (ISOVUE-370) 76 % injection 50 mL 1 ml ixekizumab 80 mg/ml auto-injector (11 sources) Interleukin-17A Antagonist Start: 10-13-2021 End: 07-16-2024 Ixekizumab (Taltz Autoinjector) 80 mg/mL auto-injector Discontinued 80 mg SC EVERY MONTH October 13, 2021 12:00am July 16, 2024 2:17pm 4 ml labetalol hydrochloride 5 mg/ml cartridge (1 source) beta-Adrenergic Angela Start: 07-29-2020 End: 07-29-2020 labetaloL (NORMODYNE) injection 5 mg 1 ml LORazepam 2 mg/ml injection (1 source) Benzodiazepine Start: 06-15-2019 End: 06-15-2019 LORazepam (ATIVAN) injection 1 mg 100 ml magnesium sulfate 10 mg/ml injection (1 source) Start: 06-20-2019 End: 06-20-2019 magnesium sulfate 1 g in dextrose (D5W) 100 mL IVPB naloxone (NARCAN) injection 0.1 mg (2 sources) Start: 07-29-2020 End: 07-29-2020 naloxone (NARCAN) injection 0.1 mg Start: 06-16-2019 End: 06-23-2019 naloxone (NARCAN) injection 0.1 mg 2 ml ondansetron 2 mg/ml injection (10 sources) Serotonin-3 Receptor Antagonist Start: 07-29-2020 End: 07-29-2020 ondansetron (ZOFRAN) injection 4 mg Start: 06-23-2019 End: 06-30-2019 take 1 tablet by mouth every eight hours as needed ondansetron (Zofran ODT) 4 MG disintegrating tablet Dissolve 1 (one) tablet (4 mg total) on top of tongue every 8 (eight) hours as needed for nausea . 20 tablet 0 06/23/2019 Active Start: 06-23-2019 End: 06-23-2019 take 1 tablet by mouth every six hours as needed ondansetron (ZOFRAN-ODT) 4 MG disintegrating tablet Dissolve 1 (one) tablet (4 mg total) on top of tongue every 6 (six) hours as needed . 20 tablet 0 06/23/2019 06/23/2019 Discontinued (Stop Taking at Discharge) ondansetron (ZOFRAN-ODT) disintegrating tablet 4 mg (1 source) Start: 06-16-2019 End: 06-23-2019 take 1 tablet by mouth every six hours as needed ondansetron (ZOFRAN-ODT) disintegrating tablet 4 mg piperacillin 3000 mg / tazobactam 375 mg injection (4 sources) Penicillin-clas s Antibacterial, beta Lactamase Inhibitor Start: 06-15-2019 End: 06-20-2019 take 3.375 g intravenous route every twelve hours piperacillin-tazoba ctam (ZOSYN) IVPB 3.375 g (premix) Start: 06-15-2019 End: 06-15-2019 piperacillin-tazobactam (ZOS YN) IVPB 4.5 g (premix) polyethylene glycol 3350 506718 mg / potassium chloride 2970 mg / sodium bicarbonate 6740 mg / sodium chloride 5860 mg / sodium sulfate 07733 mg powder for oral solution (4 sources) Osmotic Laxative Start: 07-17-2024 End: 08-31-2024 Peg 3350-Electrolytes (Golytely) 236-22.74-6.74 -5.86 gram recon soln Discontinued 240 mL PO Q10M 4000 July 17, 2024 1:00am August 31, 2024 1:42pm take as directed for split dose bowel prep microencapsulated potassium chloride 20 meq extended release oral tablet (2 sources) Start: 06-22-2019 End: 06-22-2019 potassium chloride SA (K-DUR,KLOR-CON) CR tablet 40 mEq Start: 06-20-2019 End: 06-20-2019 take 20 mEq intravenous route every two hours potassium chloride 20 mEq in 100 mL IVPB potassium citrate 10 meq extended release oral tablet (11 sources) Start: 10-13-2021 End: 07-16-2024 take 1 tablet by mouth three times daily Potassium Citrate 10 mEq (1,080 mg) tablet extended release Discontinued 20 meq PO THREE TIMES A DAY October 13, 2021 12:00am July 16, 2024 2:17pm potassium phosphate 155 mg / sodium phosphate, dibasic 852 mg / sodium phosphate, monobasic 130 mg oral tablet (1 source) Start: 06-21-2019 End: 06-23-2019 sod phos di, mono-K phos mono (K-PHOS NEUTRAL) tablet 250 mg 1000 ml sodium chloride 9 mg/ml injection (2 sources) Start: 02-21-2020 End: 02-21-2020 take 50 mL intravenous route every hour 50 mL/hr, Intravenous, Continuous, Starting Sarahi 02/21/20 at 1445, Pre-Procedure Start: 06-17-2019 End: 06-23-2019 sodium chloride (PF) (NS) fl ush 5 mL Problems Active Problems Problem Classification Problem Date Documented Da te Episodic/Chronic Abdominal hernia (11 sources) Hernia of anterior abdominal wall; Translations: [Ventral hernia without obstruction or gangrene] 10-13-2021 Episodic Abdominal pain (15 sources) Abdominal pain; Translations: [Unspecified abdominal pain] 10-13-2021 Episodic Acute and unspecified renal failure (2 sources) Acute injury of kidney; Translations: [Acute kidney failure, unspecified] 06-16-2019 Episodic Acute and unspecified renal failure (10 sources) Acute injury of kidney; Translations: [VICKI (acute kidney injury)] 06-16-2019 Administrative/social admission (20 sources) Patient encounter status; Translations: [Encounter for pre-employment examination] 03-21-2019 Episodic Calculus of urinary tract (20 sources) Kidney stone; Translations: [Calculus in urethra] Onset: 03-06-2024 06-16-2019 Episodic Chronic kidney disease (11 sources) Chronic kidney disease stage 5; Translations: [Chronic kidney disease, stage 5] 10-13-2021 Chronic Chronic kidney disease (3 sources) Chronic kidney disease; Translations: [Chronic kidney disease, stage 3b] Onset: 09-09-2023 Deficiency and other anemia (1 source) Anemia in chronic kidney disease; Translations: [Anemia in chronic kidney disease] Onset: 09-09-2023 Chronic Esophageal disorders (20 sources) Gastro-esophageal reflux disease with esophagitis; Translations: [Gastroesophageal reflux disease] Onset: 07-17-2024 10-13-2021 Chronic Comment on above: CONTROLLED WITH MED Gastroduodenal ulcer (except hemorrhage) (12 sources) Duodenal ulcer with perforation; Translations: [Chronic or unspecified duodenal ulcer with perforation] 06-16-2019 Chronic Gastrointestinal hemorrhage (4 sources) Duodenal ulcer with hemorrhage AND perforation; Translations: [Chronic or unspecified duodenal ulcer with both hemorrhage and perforation] 07-16-2024 Chronic Genitourinary symptoms and ill-defined conditions (1 source) Urge incontinence; Translations: [Sensory urge incontinence] Onset: 09-02-2023 Chronic Immunizations and screening for infectious disease (1 source) Contact with and (suspected) exposure to other viral communicable diseases; Translations: [Contact with or exposure to viral disease] Episodic Malaise and fatigue (11 sources) Fatigue; Translations: [Other fatigue] 10-13-2021 Episodic Nausea and vomiting (4 sources) Nausea; Translations: [Nausea] 09-25-2024 Episodic Other aftercare (2 sources) Surgical follow-up; Translations: [Follow-up examination, following other surgery] Episodic Other diseases of kidney and ureters (11 sources) Hydronephrosis; Translations: [Unspecified hydronephrosis] 10-21-2021 Episodic Other endocrine disorders (1 source) Secondary hyperparathyroidism , not elsewhere classified; Translations: [Secondary hyperparathyroidism , not elsewhere classified] Onset: 09-09-2023 Chronic Other gastrointestinal disorders (11 sources) Abdominal mass; Translations: [Right upper quadrant abdominal swelling, mass and lump] 10-13-2021 Episodic Other gastrointestinal disorders (2 sources) Right upper quadrant abdominal swelling, mass and lump; Translations: [Abdominal or pelvic swelling, mass, or lump, right upper quadrant] Episodic Other inflammatory condition of skin (4 sources) Psoriasis; Translations: [Psoriasis, unspecified] 07-16-2024 Chronic Other inflammatory condition of skin (1 source) Psoriasis vulgaris; Translations: [Psoriasis vulgaris] Onset: 11-20-2024 Chronic Other liver diseases (13 sources) Fatty (change of) liver, not elsewhere classified; Translations: [Metabolic dysfunction-associa sacha steatotic liver disease (MASLD)] Onset: 11-22-2024 07-17-2024 Chronic Other liver diseases (4 sources) Steatosis of liver; Translations: [Fatty (change of) liver, not elsewhere classified] 07-16-2024 Chronic Other nutritional; endocrine; and metabolic disorders (1 source) Hypercalcemia; Translations: [Hypercalcemia] Onset: 08-17-2024 Chronic Residual codes; unclassified (11 sources) Edema; Translations: [Edema, unspecified] 10-13-2021 Episodic Residual codes; unclassified (2 sources) Finding related to awareness of diagnosis; Translations: [Other specified health status] 06-16-2019 Episodic Residual codes; unclassified (7 sources) Family history of cancer of colon; Translations: [Family history of malignant neoplasm of digestive organs] 07-17-2024 Episodic Comment on above: Brother in his early 50's Thyroid disorders (9 sources) Thyroid nodule; Translations: [Nontoxic single thyroid nodule] Onset: 07-30-2024 07-30-2024 Chronic Comment on above: Patient is a 68-year -old, euthyroid from an endocrine standpoint, female who presents for evaluation of an incidentally discovered left thyroid nodule. Patient's nodule measured 1.8 cm in greatest dimension with her official ultrasound exam performed early last month. She does appear to be asymptomatic from a compressive standpoint. No TI-RADS rating was given with patient's ultrasound but biopsy was recommended. I spent a substantial portion of today's consultation visit reviewing TI-RADS rating system and then applied it to patient's nodule. With this application I reached a TI-RADS rating of 2 (1 point for isoechoic echogenicity and 1point for mixed composition. At this TI-RADS rating no biopsy is recommended by the [employer], however, this patient's preference to proceed with biopsy so her request was granted. Full details are given in the procedures section of this note. I did discuss with her the high rate of [place] 1 results when the composition is mixed or cystic in nature. As documented above, I looked to mitigate this risk by performing a fourth pass with the FNA procedure. I shared that if this was nondiagnostic by pathology I would not recommend pursuing repeat biopsy given the low suspicion and likelihood for repeat result. Unclassified (10 sources) Finding related to awareness of diagnosis; Translations: [Patient denies medical problems] 06-16-2019 Unclassified (1 source) Wound finding; Translations: [Visit for wound check] Past or Other Problems Problem Classification Problem Date Documented Da te Episodic/Chronic Gastroduodenal ulcer (except hemorrhage) (12 sources) Duodenal perforation; Translations: [Perforation of intestine (nontraumatic)] Onset: 06-15-2019 06-15-2019 Episodic Other gastrointestinal disorders (1 source) Perforation of intestine; Translations: [Bowel perforation (HCC)] Episodic Other nervous system disorders (1 source) Postoperative pain ; Translations: [Postoperative pain] Episodic Other screening for suspected conditions (not mental disorders or infectious disease) (11 sources) Other specified abnormal findings of blood chemistry; Translations: [High serum parathyroid hormone (PTH)] Onset: 07-27-2024 07-30-2024 Episodic Comment on above: Patient with elevate d PTH on screening and history of recurrent nephrolithiasis. However, patient's serum calcium has never been elevated. Therefore I hold a lower suspicion for primary hyperparathyroidism and suspect vitamin D deficiency plus minus secondary hyperparathyroidism. Will repeat patient's vitamin D, calcium, and PTH Residual codes; unclassified (1 source) Family history of malignant neoplasm of digestive organs; Translations: [Family history of malignant neoplasm of digestive organs] Onset: 07-17-2024 Episodic Urinary tract infections (1 source) Acute cystitis with hematuria; Translations: [Acute cystitis with hematuria] Onset: 03-06-2024 Episodic Results Test Name Value Interpretation Reference Range Facility MR/PATLay 12-24-2024 MR/PAT.[facility] Medical Records Department [address] [place] [address] PAT - Anesthesia 12/24/24 1524 MR#: [id number] Acct: [id number] Name: FELIPA LIMA SHREYAS Rep #: [id number] : 1955 69 From: Sylvester Vasquez MD PCP: Dr. 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 When Was Last Pacemaker Check QUESTION #4 FULL TEXT: You/Your Family Experience fever (hyperthermia) with Anesthesia Last Oral Intake Last Oral intake: Last Oral Intake NPO since Meds taken in AM with sips of water? Meds patient instructed to take am of surgery PONV PONV - betting clerk: PONV - betting clerk Female Yes 12/24/24 14:47 HX of Motion Sickness No 12/24/24 14:47 HX of N/V After Surgery No 12/24/24 14:47 Non-Smoker Yes 12/24/24 14:47 Duration of Surgery greater No 12/24/24 14:47 than 60 minutes Number of Risk Factors 2 12/24/24 14:47 PONV Score Moderate Risk 12/24/24 14:47 Height Weight Height Weight: Anesthesia: Height Weight Height 5 ft 3 in 09/25/24 10:39 Respiratory Assessment Respiratory Assessment - betting clerk: Respiratory Tract Infection Hx - betting clerk Hx Respiratory Tract Infection No 12/24/24 14:47 STOP Sleep Apnea STOP Sleep Apnea - betting clerk: STOP Sleep Apnea - betting clerk Hx Hypertension No 12/24/24 14:47 Hx Sleep Apnea No 12/24/24 14:47 CPAP BIPAP Do you snore loudly (louder No 12/24/24 14:47 than talking or can be heard Do you often feel tired/ No 12/24/24 14:47 fatigued/ sleepy during daytime? Has anyone observed you stop No 12/24/24 14:47 breathing during sleep? STOP Results Negative 12/24/24 14:47 QUESTION #5 FULL TEXT : Do you snore loudly (louder than talking or can be heard through closed doors)? 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 Specify any problems Hx of Preganancy in last 3 N/A 12/24/24 14:47 Months Nurse Filling Out Transfusion [id number] 12/24/24 14:47 Questions: Date: 12/24/24 12/24/24 14:47 Time: 14:49 12/24/24 14:47 Patient unable to answer at this time (ie. confused, unrespo /Reproduction History /Reproductive History - betting clerk: /Reproductive Hx- betting clerk Hx Now Gestational Age (in weeks): EDC: Hx Hx Para Hx Section SAB No 08/31/24 12:44 PFSH Medical History (Updated 12/24/24 @ 14:53 by Maurizio Dinh) Wears contact lenses Thyroid disease Arthritis Bladder disease Easy bruising Back pain Syncope History of hiatal hernia History of renal disease Leg cramps History of pain when walking Hx of lipoma Wears glasses Post-menopausal Former smoker Hydronephrosis, right Right ureteral calculus History of uterine leiomyoma Fatigue GERD (gastroesophageal reflux disease) Home Medications ???Medication ???Instructions ???Recorded ???Last Taken ???Type allopurinol 100 mg tablet 100 mg PO DAILY 10/13/21 09/04/24 History sodium bicarbonate 650 mg tablet 650 mg PO TID 10/13/21 09/04/24 Hi story risankizumab-rzaa 150 mg/mL 150 mg subcut Q12W 07/16/24 Unknow n History subcutaneous pen injector (Skyrizdione) acetaminophen 500 mg capsule 500 mg PO Q6H PRN pain 07/17/24 History nitrofurantoin (more content not included)... Normal [facility] Quantiferon TB-Gold+on 11-15 QFT MITOGEN KAYLA 2.94 IU/mL Normal . [facility] Comment on above: Performed By: #### L 3400.8000 ####[facility] [address] [place], [place], [id number] QFT NIL VALUE 0.04 IU/mL Normal . [facility] Comment on above: Performed By: #### L 3400.8000 ####[facility] [address] [place], [place], [id number] QFT TB GOLD+ Comment Normal . [facility] Comment on above: Result Comment: Eber tiFERON-TB Gold Plus is a qualitative indirect test for M tuberculosis infection (including disease) and is intended for use in conjunction with risk assessment, radiography, and other medical and diagnostic evaluations. The QuantiFERON-TB Gold Plus result is determined by subtracting the Nil value from either TB antigen (Ag) value. The Mitogen tube serves as a control for the test. Performed By: #### L 3400.8000 ####[facility] [address] [place], [place], [id number] QFT TB POS CRIT Negative Normal Negative [facility] Comment on above: Result Comment: No r esponse to M tuberculosis antigens detected. Infection with M tuberculosis is unlikely, but high risk individuals should be considered for additional testing (ATS/IDSA/CDC Clinical Practice Guidelines, 2017). The reference range is an Antigen minus Nil result of <0.35 IU/mL. The specimen received for QuantiFERON testing was incubated by the ordering institution. Specific procedures outlined in our Directory of Services and in the package insert for the QuantiFERON Gold (In Tube) test must be followed to enable for proper stimulation of cells for the production of interferon gamma. Chemiluminescence immunoassay methodology Performed at: [facility] [id number] Data Integration Architect: Miguel Anaya PhD, Phone: [phone] Performed By: #### L [id number] ####[facility] [address] [place], [address] QFT TB1+ AG KAYLA 0.04 IU/mL Normal . [facility] Comment on above: Performed By: #### L 3400.8000 ####[facility] [address] [place], [address] QFT TB2+ AG KAYLA 0.05 IU/mL Normal . [facility] Comment on above: Performed By: #### L 3400.8000 ####[facility] [address] [place], [address] Gastroenterology Visit Repor ton 11-13-2024 Gastroenterology Visit Report [facility] [address] [place] [address] OFFICE VISIT Date of Service: 11/13/24 MR#: [id number] Acct: [id number] Name: FELIPA LIMA SHREYAS Rep #: [id number] : 1955 Provider: Dr. Eric love MD Age/Sex: 68/F Location: [facility] Status: Signed Intake Vital Signs 09/25/24 10:39 11/13/24 12:29 Height 5 ft 3 in 5 ft 3 in Weight: 233 lb 2 oz 242 lb BMI 41.3 42.8 BP 127/83 H 134/84 H Respiration 18 Pulse 90 68 Pulse Source Monitor Pulse Oximetry (%) 94 95 Oxygen Delivery Method room air room air Intake Visit Reasons: Ongoing issues Chief Complaint: MASLD Allergies cephalexin Allergy (Severe, Verified 11/13/24 12:29) Other Iodinated Contrast Media Allergy (Mild, Verified 11/13/24 12:29) rash latex Allergy (Verified 11/13/24 12:29) Rash wool Allergy (Verified 11/13/24 12:29) Rash codeine Adverse Reaction (Mild, Verified 11/13/24 12:29) gi upset morphine Adverse Reaction (Mild, Verified 11/13/24 12:29) gi upset Medications ???Medication ???Instructions ???Recorded ???Confirmed ???Type allopurinol 100 mg tablet 100 mg PO DAILY 10/13/21 11/13/24 History sodium bicarbonate 650 mg tablet 650 mg PO TID 10/13/21 11/13/24 Hi story risankizumab-rzaa 150 mg/mL 150 mg subcut Q12W 07/16/24 History subcutaneous pen injector (Adelsoyrizdione) acetaminophen 500 mg capsule 500 mg PO Q6H PRN pain 07/17/24 History nitrofurantoin macrocrystal 100 mg 100 mg PO Q12H PRN BLADDER 07/1711/13/24 History capsule oxybutynin chloride 10 mg 10 mg PO QDAY 07/17/24 11/13/24 Hi story tablet,extended release 24 hr pantoprazole 40 mg tablet,delayed 40 mg PO QDAY #180 tabs 09/25/24 11/13/24 Rx release spironolactone 25 mg tablet 25 mg PO DAILY 1 month #30 tabs 11/13/24 Rx Have you fallen in the past year?: No PFSH Medical History Thyroid disease Arthritis Bladder disease Easy bruising Back pain Syncope History of hiatal hernia History of renal disease Leg cramps History of pain when walking Hx of lipoma Wears glasses Post-menopausal Former smoker Hydronephrosis, right Right ureteral calculus History of uterine leiomyoma Fatigue GERD (gastroesophageal reflux disease) Surgical History History of bladder surgery History of incision and drainage History of esophagogastroduodenoscopy (EGD) Hx of biopsy History of surgery History of ureter stent Hx of foot surgery History of hysterectomy History of colonoscopy Family History Father Diabetes Hypertension Cancer skin Mother Hypertension Brother Colon cancer Social History Smoking Status: Former smoker how long ago did patient quit smokin years HPI HPI Chief Complaint: MASLD Details: FELIPA LIMA, is a 68 F who presents to the office today for hepatology consult. 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 Requesting consult to hepatology for MASLD. Pt reports she feels stable over all. Denies abdominal pain. Some swelling in lower legs. No SOB. Tries to be active. BM are normal. ROS Const Constitutional: Positive for fatigue; No fever(s), weakness or weight change ENT ENT: No difficulty swallowing Resp Respiratory: No shortness of breath or wheezing Cardio Cardiology: No chest pain at rest or dyspnea on exertion Gastro GI: Positive for bloating and excessive flatus; No abdominal pain, belching, change in bowel habits, change in stool character, coffee ground emesis, constipation, cramping, diarrhea, heartburn, difficulty swallowing, feeling full early, incontinent of stools, Vomiting blood/hematemesis, Blood in stool, loose stools, Black,tarry stools, nausea/dyspepsia, pain with swallowing, vomiting or other Genitourinary-Female: No difficulty urinating or burning urination Musc Musculoskeletal: Positive for joint pain, joint swelling and stiffness Skin Skin: No yellowing of the eye or itchy eyes Neuro Neurology: No abnormal movements, behavioral changes, weakness or lack of coordination Psych Psychiatric: No anxiety, No behavioral changes and No depression Endo Endocrine: Positive for fatigue; No weight change Aller/Imm Allergy/Immunologic: No itchy eyes or wheezing Torres/Lymp Hematologic/Lymphatic: No easy bleeding or easy bruising Exam Const General: cooperative, no acute distress and well developed Nutritional Appearance: obese Orientation: alert, awake and oriented x3 Other: BMI 42.8 kg/m??? gained 9 pounds in last 1 month. [facility] Head: nor (more content not included)... Normal [facility] Qualitative QuantiFERON-TB g old in tube testOrdered By: Maxx Arevalo on 11-13-2024 M. tuberculosis tuberculin stim IFN-g Ql (Bld) 0.04 IU/mL . [facility] CNOVon 10-16-2024 CNOV Office Visit (URCANT ) -- FELIPA LIMA ([id number]) 1955 F Date Time Provider Department 4/22/25 1:00 PM FAITH PADRON During your visit today, we recorded the following information about you: Faith Padron APRN.CNP 10/16/2024 1:38 PM Signed [facility] ESTABLISHED PATIENT OFFICE VISIT HISTORY OF PRESENT ILLNESS Felipa Lima is a 68 year old female who is here for follow up of UUI and OAB. Pt reports that she was voiding every 3 hrs during the day, but lately it is about every 1.5 hrs with some UUI (wearing pull ups). She is still on oxybutynin 10mg daily. No hematuria or dysuria. Made adjustments to her Interstim and reeducated on how to makes changes. See procedure note. Review of Systems The remainder of the ROS was reviewed and is negative. LAB Creatinine Date Value Ref Range Status 10/12/2023 1.88 (H) 0.51 - 0.95 mg/dL Final Comment: Patients receiving either N-Acetylcysteine (NAC) or Metamizole prior to venipuncture, may have falsely depressed results. No results found for: PSA, PSASC GLUCOSE UA (POCT) (mg/dL) Date Value 09/04/2024 Negative BILIRUBIN UA (POCT) (no units) Date Value 09/04/2024 Negative KETONE UA (POCT) (mg/dL) Date Value 09/04/2024 Negative SPECIFIC GRAVITY UA (POCT) (no units) Date Value 09/04/2024 1.010 HEMOGLOBIN/BLOOD UA (POCT) (no units) Date Value 09/04/2024 Moderate (A) PH UA (POCT) (no units) Date Value 09/04/2024 6.0 PROTEIN UA (POCT) (mg/dL) Date Value 09/04/2024 Trace (A) UROBILINOGEN UA (POCT) (E.U./dL) Date Value 09/04/2024 0.2 NITRITE UA (POCT) (no units) Date Value 09/04/2024 Negative LEUKOCYTES UA (POCT) (no units) Date Value 09/04/2024 Moderate (A) COLOR UA (POCT) (no units) Date Value 09/04/2024 Yellow CLARITY UA (POCT) (no units) Date Value 09/04/2024 Clear ] MEDICATIONS nitrofurantoin monohydrate and macrocrystal (MACROBID) 100 mg capsule oxybutynin ER (DITROPAN XL) 10 mg 24 hr tablet Take 1 tablet by mouth once daily. sodium citrate-citric acid (BICITRA) 500-334 mg/5 mL solution TAKE 10 ML BY MOUTH THREE TIMES DAILY (DILUTED IN 1 TO 3 OUNCES OF WATER) SKYRIZI 150 mg/mL injection Inject subcutaneously. Once every 3 months due october 2023-- will take following procedure. sodium bicarbonate 650 mg tablet Take 650 mg by mouth three times daily. furosemide (LASIX) 20 mg tablet Take 20 mg by mouth as needed. For swelling in legs hasn't taken in awhile allopurinol (ZYLOPRIM) 100 mg tablet Take 100 mg by mouth every morning. pantoprazole DR (PROTONIX) 40 mg tablet Take 40 mg by mouth every morning. 0 HISTORIES PAST MEDICAL HISTORY Diagnosis Date Chronic kidney disease, stage IV (severe) ([facility]) Dr. Nickerson Kidney stones PONV (postoperative nausea and vomiting) Sensory urge incontinence 2023 PAST SURGICAL HISTORY Procedure Laterality Date COLON SURGERY HX repair rupture CYSTOSCOPY several times ESWL F TOTAL ABDOMINAL HYSTERECTOMY FRACTURE SURGERY Right heel INCISION AND DRAINAGE OF WOUND (IANDD) HX upper left thigh LIPOMA (LARGE) upper abd. [employer] 1X4 POCKET ADAPTER Left 09/2023 PAST SURGICAL HISTORY OF biopsy on the thyroid (benign) PT ED OBST[facility]ECOLOGY [facility] FAMILY HISTORY Problem Relation Age of Onset Colon Cancer Brother SOCIAL HISTORY Social History Tobacco Use Smoking status: Former Current packs/day: 0.00 Average packs/day: 0.5 packs/day for 20.0 years (10.0 ttl pk-yrs) Types: Cigarettes Start date: 1986 Quit date: 2006 Years since quittin.3 Smokeless tobacco: Never Vaping Use Vaping status: Never Used Substance Use Topics Alcohol use: Yes Comment: very seldom Drug use: Never There were no vitals taken for this visit. Physical Exam ASSESSMENT/PLAN: 1. Sensory urge incontinence - ICD9: 788.31, ICD10: N39.41 (primary diagnosis) S/p Interstim (10/26/23) with Dr. Trammell Changed to program 5, if working well, trial off oxybutynin 10mg F/u 6 mos or sooner if needed - BLADDER SCAN= 0ml 2. Screening for genitourinary condition - ICD9: V81.6, ICD10: Z13.89 3. Kidney stone - ICD9: 592.0, ICD10: N20.0 CT a/p (2023) R lower pole stone Observe for now ESSENCE Lindsay APRN.CNP This note was partially created using voice recognition software and is inherently subject to errors including those of syntax and sound-alike substitutions which may escape proofreading. In such instances, original meaning may be extrapolated by contextual derivation. Faith Padron APRN.CNP 10/16/2024 1:38 PM Signed Interstim program was on 4 @ 2.0, she is now switched to program 5 @ 2.0. She feels the stimulation in her buttocks. Faith Padron APRN.CNP Allergies As of Date: 10/16/2024 Noted Allergy Reaction KEFLEX (CEPHALEXIN) 10/26/2023 2 - (more content not included)... Normal [facility] Gastroenterology Visit Repor ton 09-25-2024 Gastroenterology Visit Report [facility] [address] [place] [address] OFFICE VISIT Date of Service: 09/25/24 MR#: [id number] Acct: [id number] Name: FELIPA LIMA SHREYAS Rep #: [id number] : 1955 Provider: MIKEL bar Age/Sex: 68/F [place] [facility] [place]: Signed Intake Vital Signs 07/17/24 11:11 09/05/24 05:50 09/25/24 10:39 Height 5 ft 3 in 5 ft 3 in 5 ft 3 in Weight: 233 lb 2 oz BMI 41.3 BP 127/83 H Respiration 18 Pulse 90 Pulse Oximetry (%) 94 Oxygen Delivery Method room air Intake Visit Reasons: Test Result Chief Complaint: follow-up Waste 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 Required: No Is patient in pain?: Yes Allergies cephalexin Allergy (Severe, Verified 09/25/24 10:27) Other Iodinated Contrast Media Allergy (Mild, Verified 09/25/24 10:27) rash latex Allergy (Verified 09/25/24 10:27) Rash wool Allergy (Verified 09/25/24 10:27) Rash codeine Adverse Reaction (Mild, Verified 09/25/24 10:27) gi upset morphine Adverse Reaction (Mild, Verified 09/25/24 10:27) gi upset Medications ???Medication ???Instructions ???Recorded ???Confirmed ???Type allopurinol 100 mg tablet 100 mg PO DAILY 10/13/21 09/25/24 History sodium bicarbonate 650 mg tablet 650 mg PO TID 10/13/21 09/25/24 Hi story risankizumab-rzaa 150 mg/mL 150 mg subcut Q12W 07/16/24 History subcutaneous pen injector (James) acetaminophen 500 mg capsule 500 mg PO Q6H PRN pain 07/17/24 History nitrofurantoin macrocrystal 100 mg 100 mg PO Q12H PRN BLADDER 07/1709/25/24 History capsule oxybutynin chloride 10 mg 10 mg PO QDAY 07/17/24 09/25/24 Hi story tablet,extended release 24 hr pantoprazole 40 mg tablet,delayed 40 mg PO QDAY #180 tabs 09/25/24 09/25/24 Rx release Have you fallen in the past year?: No Nurse's Note: Upper right abdominal discomfort 09/03. [facility] Medical History Thyroid disease Arthritis Bladder disease Easy bruising Back pain Syncope History of hiatal hernia History of renal disease Leg cramps History of pain when walking Hx of lipoma Wears glasses Post-menopausal Former smoker Hydronephrosis, right Right ureteral calculus History of uterine leiomyoma Fatigue GERD (gastroesophageal reflux disease) Surgical History History of bladder surgery History of incision and drainage History of esophagogastroduodenoscopy (EGD) Hx of biopsy History of surgery History of ureter stent Hx of foot surgery History of hysterectomy History of colonoscopy Family History Father Diabetes Hypertension Cancer skin Mother Hypertension Brother Colon cancer Social History Smoking Status: Former smoker how long ago did patient quit smokin years HPI HPI Chief Complaint: follow-up Details: FELIPA LIMA, is a 68 F who presents to the office today for EGD: 09/05/2024 Sandoval's 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 Biopsied. - Medium-sized hiatal hernia. - Enlarged gastric folds. - A single duodenal polyp. Clip was placed. 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 Biopsied. COLON 09/05/2024 TAs - RECALL colon in 3 years (08/2027) - Diverticulosis in the recto-sigmoid colon, in the sigmoid colon and in the descending colon. - Two 7 mm polyps in the sigmoid colon and at the hepatic flexure, removed with a jumbo cold forceps. Resected and retrieved. - One 9 mm polyp in the cecum, removed with a cold snare. Resected and retrieved. - Stool in the cecum. - Medium-sized lipoma at the hepatic flexure. HAV Total Ab: 07/17/2024 negative HBVsA07/17/2024 negative HBVsAb: 07/17/2024 negative HBV Core Ab Total: 07/17/2024 negative HCV Ab: 07/17/2024 negative CBC: 07/17/2024 PLT 195 CMP: 07/17/2024 Creat 1.6, transaminases unremarkable, albumin WNL ELF: 09/14/2024 elevated 11.29 ABD US: 06/25/[address] Chest/ABD/Pelvis w/o contrast 09/29/2023 hepatomegaly, splenomegaly, left thyroid nodule and pyelonephritis. FibroScan: 07/26/2024 F0/S3 no fibrosis with severe liver fat IQR of 33% WEIGHT: 233lbs / BMI 41.3 07/17/2024 234lbs EtOH: once a year Family h/o liver disease: denies Tattoos: yes - mild nausea on occasion - mild RUQ pain - denies any HB - denies any weight loss - Pantoprazole 20mg QD - weight is stable - scopes were done for screening purposes - she reports post scope she no longer has aching pain in her BLE and knees - she reports she is not diabetic - elevated glucose dating back to at least 2019 ROS Const (more content not included)... Normal [facility] [id number] 09-18-2024 [facility] COMMENT Normal . [facility] Comment on above: Order Comment: [id number] 9ELF TEST TIGER RF Result Comment: Test Ordered: [id number] Enhanced Liver Fibrosis (ELF) ELF(TM) Score 11.29 [H ] Reference Range: <9.80 ELF(TM) Score Interpretation: Risk cut-offs to assess the likelihood of progression to cirrhosis and liver-related clinical events within 3.9 years following baseline ELF score (IQR: 14.0-22.4 months)*: Lower risk < 9.80 Mid risk 9.80 - 11.29 Higher risk >11.29 Note: The ELF(TM) Score is a unitless numerical value. *Horacio SA, Micheal VW, Antonina T, et al. Selonsertib for patients with bridging fibrosis or compensated cirrhosis due to INFANTE: Results from randomized phase III STELLAR trials. J Hepatol. 2020 Dec;73(1):26-39. Performed at: - [facility] [id number] Data Integration Architect: Génesis Romero MD, Phone: [phone] Performed at: [facility] [address] [id number] Data Integration Architect: Miguel Anaya PhD, Phone: [phone] Performed By: #### L [id number] ####[facility] [id number] [facility] [place], [address] 12 Lead EKGon 09-05-[address] [facility] Cardiovascular Services [address] [place] [address] 12 Lead EKG 09/05/24 0828 MR#: [id number] Acct: [id number] Name: FELIPA LIMA SHREYAS Rep #: [id number] : 1955 68 From: Sandro Bermudez MD Attending Dr: Roderick Friend, DO Status: DEP MT C Ordering Dr: Aman Ponce MD Date: 09/05/24 Location: EN Sex: F C Admitted: Test Reason : POST OP Blood Pressure : */* mmHG Vent. Rate : 59 BPM Atrial Rate : 59 BPM P-R Int : 126 ms QRS Dur : 72 ms QT Int : 468 ms P-R-T Axes : 23 -34 14 degrees QTcB Int : 463 ms Poor data quality, interpretation may be adversely affected Sinus bradycardia with occasional AV dual-paced complexes Left axis deviation Abnormal ECG No previous ECGs available Confirmed by SANDRO BERMUDEZ MD ([id number]), medical transcription editor JILLIAN REYES ([id number]) on 09/10/2024 1:46:13 PM Referred By: Kandace Katz Confirmed By: SANDRO BERMUDEZ MD 09/10/24 1346 Date Sandro Bermudez MD CC: Dr. Aman Ponce MD; Dr. Kandace Katz MD; Roderick Tang DO Signed Normal [facility] Colonoscopy Reporton [address] [facility] Medical Records Department [address] [place] [address] Colonoscopy Report MR#: [id number] Acct: [id number] Name: FELIPA LIMA SHREYAS Rep #: [id number] : 1955 68 From: Roderick Tang DO PCP: Dr. Kandace Katz MD Status:[facility] Patient Name: Felipa Lima Procedure Date: 09/05/2024 7:22 AM Date of : 1955 Age: 68 Procedure: Colonoscopy Indications: Screening for colorectal malignant neoplasm Providers: Roderick Tang DO Referring MD: Kandace Katz Medicines: Monitored Anesthesia Care Patient Profile: This is a 68 year old female. Refer to note in patient chart for documentation of history and physical. Patient has symptoms of chronic heartburn. Last Colonoscopy: date unknown. Unable to locate last colonoscopy report. Complications: No immediate complications. Procedure: Pre-Anesthesia Assessment: - Prior to the procedure, a History and Physical was performed, and patient medications and allergies were reviewed. The patient is competent. The risks and benefits of the procedure and the sedation options and risks were discussed with the patient. All questions were answered and informed consent was obtained. Patient identification and proposed procedure were verified by the physician in the pre-procedure area. Mental Status Examination: alert and oriented. Airway Examination: normal oropharyngeal airway and neck mobility. Respiratory Examination: clear to auscultation. CV Examination: normal. Prophylactic Antibiotics: The patient does not require prophylactic antibiotics. Prior Anticoagulants: The patient has taken no anticoagulant or antiplatelet agents. ASA Grade Assessment: II - A patient with mild systemic disease. After reviewing the risks and benefits, the patient was deemed in satisfactory condition to undergo the procedure. The anesthesia plan was to use monitored anesthesia care (MAC). Immediately prior to administration of medications, the patient was re-assessed for adequacy to receive sedatives. The heart rate, respiratory rate, oxygen saturations, blood pressure, adequacy of pulmonary ventilation, and response to care were monitored throughout the procedure. The physical status of the patient was re-assessed after the procedure. After I obtained informed consent, the scope was passed under direct vision. Throughout the procedure, the patient's blood pressure, pulse, and oxygen saturations were monitored continuously. The Colonoscope was introduced through the anus and advanced to the cecum, identified by appendiceal orifice and ileocecal valve. The colonoscopy was performed without difficulty. The patient tolerated the procedure well. The quality of the bowel preparation was adequate. The ileocecal valve, appendiceal orifice, and rectum were photographed. Scope In: 7:24:31 AM Scope Withdrawal Time 0 hours 11 minutes 30 seconds Scope Out: 7:39:25 AM Total Procedure Duration Time 0 hours 14 minutes 54 seconds Findings: The perianal and digital rectal examinations were normal. Multiple small and large-mouthed diverticula were found in the recto-sigmoid colon, sigmoid colon and descending colon. Two sessile polyps were found in the sigmoid colon and hepatic flexure. The polyps were 7 mm in size. These polyps were removed with a jumbo cold forceps. Resection and retrieval were complete. Verification of patient identification for the specimen was done. Estimated blood loss was minimal. A 9 mm polyp was found in the cecum. The polyp was sessile. The polyp was removed with a cold snare. Resection and retrieval were complete. Verification of patient identification for the specimen was done. Estimated blood loss was minimal. Stool was found in the cecum. There was a medium-sized lipoma, at the hepatic flexure. Impression: - Diverticulosis in the recto-sigmoid colon, in the sigmoid colon and in the descending colon. - Two 7 mm polyps in the sigmoid colon and at the hepatic flexure, removed with a jumbo cold forceps. Resected and retrieved. - One 9 mm polyp in the cecum, removed with a cold snare. Resected and retrieved. - Stool in the cecum. - Medium-sized lipoma at the hepatic flexure. Recommendation: - Discharge patient to home. - Resume previous diet. - Continue present medications. - Await pathology results. - Repeat colonoscopy in 3 years for surveillance. Procedure Code(s): --- Professional --- 39513, Colonoscopy, flexible; with removal of tumor(s), polyp(s), or other lesion(s) by snare technique 80804, 59, Colonoscopy, flexible; with biopsy, single or multiple CPT copyright 2021 [employer]. All rights reserved. The codes documented in this report are preliminary and upon chief lock tender operator review may be revised to meet current compliance requirements. Roderick Tang, (more content not included)... Normal [facility] EGD Reporton 09-05-[address] [facility] Medical Records Department [address] [place] [address] EGD Report MR#: [id number] Acct: [id number] Name: FELIPA LIMA SHREYAS Rep #: [id number] : 1955 68 From: Roderick Tang DO PCP: Dr. Kandace Katz MD Status:REG [facility] Patient Name: Felipa Lima Procedure Date: 09/05/2024 6:14 AM Date of : 1955 Age: 68 Procedure: Upper GI endoscopy Indications: Heartburn Providers: Roderick Tang DO Referring MD: Kandace Katz Medicines: Monitored Anesthesia Care Patient Profile: This is a 68 year old female. Refer to note in patient chart for documentation of history and physical. Patient has symptoms of chronic heartburn. Complications: No immediate complications. Procedure: Pre-Anesthesia Assessment: - Prior to the procedure, a History and Physical was performed, and patient medications and allergies were reviewed. The patient is competent. The risks and benefits of the procedure and the sedation options and risks were discussed with the patient. All questions were answered and informed consent was obtained. Patient identification and proposed procedure were verified by the physician in the pre-procedure area. Mental Status Examination: alert and oriented. Airway Examination: normal oropharyngeal airway and neck mobility. Respiratory Examination: clear to auscultation. CV Examination: normal. Prophylactic Antibiotics: The patient does not require prophylactic antibiotics. Prior Anticoagulants: The patient has taken no anticoagulant or antiplatelet agents. ASA Grade Assessment: II - A patient with mild systemic disease. After reviewing the risks and benefits, the patient was deemed in satisfactory condition to undergo the procedure. The anesthesia plan was to use monitored anesthesia care (MAC). Immediately prior to administration of medications, the patient was re-assessed for adequacy to receive sedatives. The heart rate, respiratory rate, oxygen saturations, blood pressure, adequacy of pulmonary ventilation, and response to care were monitored throughout the procedure. The physical status of the patient was re-assessed after the procedure. After obtaining informed consent, the endoscope was passed under direct vision. Throughout the procedure, the patient's blood pressure, pulse, and oxygen saturations were monitored continuously. The Colonoscope was introduced through the mouth, and advanced to the second part of duodenum. The upper GI endoscopy was accomplished without difficulty. The patient tolerated the procedure well. Scope In: 7:10:18 AM Scope Out: 7:22:38 AM Total Procedure Duration Time 0 hours 12 minutes 20 seconds Findings: The Z-line was irregular and was found 39 cm from the incisors. Biopsies were taken with a cold forceps for histology. Verification of patient identification for the specimen was done. Estimated blood loss was minimal. A medium-sized hiatal hernia was present. Diffuse prominent gastric folds were found in the entire examined stomach. A single 15 mm semi-pedunculated polyp with bleeding was found in the second portion of the duodenum. For hemostasis, one hemostatic clip was successfully placed. 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 There was no bleeding at the end of the procedure. Biopsies were taken with a cold forceps for histology. Verification of patient identification for the specimen was done. Estimated blood loss was minimal. Impression: - Z-line irregular, 39 cm from the incisors. Biopsied. - Medium-sized hiatal hernia. - Enlarged gastric folds. - A single duodenal polyp. Clip was placed. 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 Biopsied. Recommendation: - Discharge patient to home. - Resume previous diet. - Continue present medications. - Await pathology results. - Repeat upper endoscopy for surveillance based on pathology results. Procedure Code(s): --- Professional --- 02233, 59, Esophagogastroduodenoscopy , flexible, transoral; with control of bleeding, any method 54204, 51, Esophagogastroduodenoscopy , flexible, transoral; with biopsy, single or multiple CPT copyright 2021 [employer]. All rights reserved. The codes documented in this report are preliminary and upon chief lock tender operator review may be revised to meet current compliance requirements. Roderick Tang DO 09/05/2024 7:46:11 AM This report has been signed electronically. Number of Addenda: 0 Note Initiated On: 09/05/2024 6:14 AM 09/05/24 0746 Date Roderick Tang DO Cosigner Signature: Date (if indicated) CC: Dr. Kandace Katz MD; Roderick Tang DO Date Dictated: 09/05/24613 Date Transcribed: County Agricultural Agent: ALEXIS Signed [facility] MR/POSTOP.ANEon 09-05-2024 MR/POSTOP.[facility] Medical Records Department [address] [place] [address] Anesthesia Postop Eval I 09/05/24 0753 MR#: [id number] Acct: [id number] Name: FELIPA LIMA SHREYAS Rep #: [id number] : 1955 68 From: Jefry Alford PCP: Dr. Kandace Katz MD Status:REG [facility] Y Race: C Location: [place] [address] Anesthesia: Postop Eval I Current Vital Signs Temperature: 98.1 F Pulse Rate: 62 Blood Pressure: 77/53 Respiratory Rate: 16 Pulse Ox: 98 Oxygen Delivery Method: Room Air Assessment Airway patent: Yes Spontaneous unlabored respirations: Yes Mental status: Awake nausea: Yes Vomiting: No Anesthesia Complication: Yes Anesthesia Complication Comment:: pt hypotensive and reports nausea in PACU, consult with MD for fluid bolus Fluid Hydration Crystalloid volume administer (ml): 90 Total IV fluid infused: 90 Progress Note Anesthesia document: Postop Eval 1 completed: Yes 09/05/24 0754 Date Jefry Mendiola Signature: Date CC: Signed Normal [facility] MR/GZEPECQH0tz 09-05-2024 [facility] Medical Records Department [address] [place] [address] Anesthesia Postop Eval II 09/05/24 1055 MR#: [id number] Acct: [id number] Name: FELIPA LIMA SHREYAS Rep #: [id number] : 1955 68 From: Aman Ponce MD PCP: Dr. Kandace Katz MD Status:[facility] Y Race: C Location: EN Anesthesia Postop Eval I Sum Postop Eval Completion status Anesthesia document: Postop Eval 1 completed: Yes Anesthesia Postop Eval I Summary Anesthesia Postop Eval I Summary: Anesthesia Postop Eval I: Assessment Summary Airway patent Yes 09/05/24 07:54 [email or web address] Spontaneous unlabored Yes 09/05/24 07:54 [email or web address] respirations Mental status Awake 09/05/24 07:54 [email or web address] nausea Yes 09/05/24 07:54 [email or web address] Vomiting No 09/05/24 07:54 [email or web address] Anesthesia Postop Eval I: Fluid Summary Crystalloid volume administer 90 09/05/24 07:54 [email or web address] (ml) Colloids volume administered ( ml) Blood Product volume administered (ml) Total IV fluid infused 90 09/05/24 07:54 [email or web address] Anesthesia Postop Eval I: Summary Notes Anesthesia Complication Yes 09/05/24 07:54 [email or web address] Anesthesia Complication pt hypotensive and 09/05/24 07:54 [email or web address] Comment: reports nausea in PACU, consult with MD for fluid bolus Post-operative progress note Anesthesia: Postop Eval II Evaluation Mental status: Awake Pain Level: 0 nausea: No Vomiting: No 09/05/24 1055 Date Aman Mendiola Signature: Date CC: Signed Normal [facility] Surgery Specimen Level Juan 09-05-2024 Surgery Specimen Level IV Patient Age/Sex Location Account Attending Physician FELIPA LIMA 68/F EN [id number] Roderick Tang DO Specimen: [id number] Received: 09/05/24 Status: INDER Arboleda Num: [id number] Spec Type: COLON BX Subm Dr: Roderick Tang, HEADER OPERATION: Colonoscopy, EGD, hemostasis clip PRE-OP DIAGNOSIS: Metabolic dysfunction-associated steotactic liver disease, Sandoval's esophagus, Screen for colon cancer, family history of colon cancer TISSUE SUBMITTED: A- Duodenal mass biopsy, B- Distal esophagus biopsy, C- Hepatic flexure biopsy, D- Cecum biopsy, E- Sigmoid polyp biopsy MICROSCOPIC DIAGNOSIS A. Duodenum, mass, biopsy: * Gastric heterotopia. * Focal granulation tissue suggestive of ulceration. * No neoplasia seen. B. Distal esophagus, biopsy: * Columnar mucosa with reactive epithelial changes, negative for goblet cell metaplasia. * Focal scant squamous metaplasia. * Negative for dysplasia. C. Colon, hepatic flexure, biopsy: * Tubular adenoma. D. Colon, cecum, biopsy: * Tubular adenoma. E. Sigmoid colon, polyp, biopsy: * Tubular adenoma. MICROSCOPIC DESCRIPTION Slides are reviewed. GROSS DESCRIPTION A. Received in fixative is one container labeled with the patient's name and designated Duodenal mass biopsy. The specimen consists of multiple irregular fragments of light chinchilla soft tissue that in aggregate measure 0.9 x 0.5 x 0.2 cm. The specimen is totally submitted in one cassette. B. Received in fixative is one container labeled with the patient's name and designated Distal esophagus biopsy. The specimen consists of two irregular fragments of light chinchilla soft tissue that in aggregate measure 0.7 x 0.5 x 0.2 cm. The specimen is totally submitted in one cassette. C. Received in fixative is one container labeled with the patient's name and designated Hepatic flexure biopsy. The specimen consists of one irregular fragment of light chinchilla soft Patient Age/Sex Location Account Attending Physician FELIPA LIMA 68/F EN [id number] Roderick Tang, tissue that measures 0.4 x 0.4 x 0.2 cm. The specimen is totally submitted in one cassette. D. Received in fixative is one container labeled with the patient's name and designated Cecum biopsy. The specimen consists of multiple irregular fragments of light chinchilla soft tissue that in aggregate measure 0.7 x 0.5 x 0.1 cm. The specimen is totally submitted in one cassette. E. Received in fixative is one container labeled with the patient's name and designated Sigmoid polyp biopsy. The specimen consists of multiple irregular fragments of light chinchilla soft tissue that in aggregate measure 0.6 x 0.4 x 0.2 cm. The specimen is totally submitted in one cassette. 09/05/2024 CPT:51126k2 Patient Age/Sex Location Account Attending Physician FELIPA LIMA 68/F EN [id number] Roderick Tang DO Signed (signature on file) Dr. Blanche House MD 09/10/24 1359 Normal [facility] Comment on above: Performed By: #### P ANIBAL #### [facility] [place], [place], [id number] CNOVlavonne 09-04-2024 CNOV Office Visit (URCANT ) -- FELIPA LIMA ([id number]) 1955 F Date Time Provider Department 09/04/24 11:30 AM PORSHA TRAMMELL URCANT During your visit today, we recorded the following information about you: Porsha Trammell MD 09/04/2024 12:22 PM Signed ESTABLISHED PATIENT OFFICE VISIT The patient is here for follow-up of urgency urinary incontinence. She is overall improved after having the InterStim placed, but she is also taking oxybutynin 10 mg. She has occasional urgency urinary incontinence. She denies dysuria. Her CT scan from the fall 2023 shows right lower pole stone only. No obstruction no hydronephrosis. (My review) LAB RESULTS Creatinine Date Value Ref Range Status 10/12/2023 1.88 (H) 0.51 - 0.95 mg/dL Final Comment: Patients receiving either N-Acetylcysteine (NAC) or Metamizole prior to venipuncture, may have falsely depressed results. No results found for: PSA, PSASC GLUCOSE UA (POCT) (mg/dL) Date Value 09/04/2024 Negative BILIRUBIN UA (POCT) (no units) Date Value 09/04/2024 Negative KETONE UA (POCT) (mg/dL) Date Value 09/04/2024 Negative SPECIFIC GRAVITY UA (POCT) (no units) Date Value 09/04/2024 1.010 HEMOGLOBIN/BLOOD UA (POCT) (no units) Date Value 09/04/2024 Moderate (A) PH UA (POCT) (no units) Date Value 09/04/2024 6.0 PROTEIN UA (POCT) (mg/dL) Date Value 09/04/2024 Trace (A) UROBILINOGEN UA (POCT) (E.U./dL) Date Value 09/04/2024 0.2 NITRITE UA (POCT) (no units) Date Value 09/04/2024 Negative LEUKOCYTES UA (POCT) (no units) Date Value 09/04/2024 Moderate (A) COLOR UA (POCT) (no units) Date Value 09/04/2024 Yellow CLARITY UA (POCT) (no units) Date Value 09/04/2024 Clear ] ALLERGIES Allergen Reactions Keflex [Cephalexin] Rash Codeine GI Upset Gadolinium-Containi* Hives Latex Rash Morphine GI Upset Wool Rash Iodinated Contrast * Hives, Rash MEDICATIONS: nitrofurantoin monohydrate and macrocrystal (MACROBID) 100 mg capsule oxybutynin ER (DITROPAN XL) 10 mg 24 hr tablet Take 1 tablet by mouth once daily. sodium citrate-citric acid (BICITRA) 500-334 mg/5 mL solution TAKE 10 ML BY MOUTH THREE TIMES DAILY (DILUTED IN 1 TO 3 OUNCES OF WATER) SKYRIZI 150 mg/mL injection Inject subcutaneously. Once every 3 months due october 2023-- will take following procedure. sodium bicarbonate 650 mg tablet Take 650 mg by mouth three times daily. furosemide (LASIX) 20 mg tablet Take 20 mg by mouth as needed. For swelling in legs hasn't taken in awhile allopurinol (ZYLOPRIM) 100 mg tablet Take 100 mg by mouth every morning. pantoprazole DR (PROTONIX) 40 mg tablet Take 40 mg by mouth every morning. REVIEW OF SYSTEMS GENERAL:no unintentional weight loss, malaise or fevers. NEUROLOGIC: pt is alert and oriented GASTROINTESTINAL: No nausea, vomiting, or diarrhea GENITOURINARY: See HPI MUSCULOSKELETAL: Negative for joint pain or swelling, back pain or muscle pain SKIN: Negative for lesions, rash, and itching. ACTIVE PROBLEM LIST Gastroesophageal Reflux Disease Vicki (Acute Kidney Injury) ([facility]) Morbidly Obese ([facility]) Calculus of Ureter Obesity, Class III, BMI >= 40 Stage 5 Chronic Kidney Disease ([facility]) Sensory Urge Incontinence Preop Testing Acute Cystitis With Hematuria Calculus of Kidney HISTORIES PAST MEDICAL HISTORY Diagnosis Date Chronic kidney disease, stage IV (severe) ([facility]) Dr. Nickerson Kidney stones PONV (postoperative nausea and vomiting) Sensory urge incontinence 2023 PAST SURGICAL HISTORY Procedure Laterality Date COLON SURGERY HX repair rupture CYSTOSCOPY several times ESWL F TOTAL ABDOMINAL HYSTERECTOMY FRACTURE SURGERY Right heel INCISION AND DRAINAGE OF WOUND (IANDD) HX upper left thigh LIPOMA (LARGE) upper abd. [employer] 1X4 POCKET ADAPTER Left 09/2023 PAST SURGICAL HISTORY OF biopsy on the thyroid (benign) PT ED OBSTETRICS [facility]ECOLOGY [facility] FAMILY HISTORY Problem Relation Age of Onset Colon Cancer Brother SOCIAL HISTORY Social History Tobacco Use Smoking status: Former Current packs/day: 0.00 Average packs/day: 0.5 packs/day for 20.0 years (10.0 ttl pk-yrs) Types: Cigarettes Start date: 1986 Quit date: 2006 Years since quittin.2 Smokeless tobacco: Never Vaping Use Vaping status: Never Used Substance Use Topics Alcohol use: Yes Comment: very seldom Drug use: Never PHYSICAL EXAMINATION General appearance: Well appearing, alert, in no acute distress, well-hydrated, well nourished Psych Alert and oriented to person, place and time Cardiac: no peripheral edema Pulmonary: normal respiratory effort ASSESSMENT/PLAN: 1. Sensory urge incontinence [N39.41] - ICD9: 788.31, ICD10: N39.41 (primary diagnosis) As well as InterStim placement. I will have her follow-up with our nurse practitioner for reprogramming. In (more content not included)... Normal [facility] URINE CREATININE AND PROTEIN RATIOon 08-13-2024 URINE CREATININE AND PROTEIN RATIO Normal [facility] Comment on above: Result Comment: SEE SCANNED REPORT Performed By: #### 2 [id number] #### [facility],[address] [place] [address] PTH, INTACT [CCL]on 08-08-19 25 PTH, Intact 88 pg/mL High 15-65 [facility] Comment on above: Result Comment: [facility] [address] [place] [address] Antonio Chatman III, M.D. [id number] Performed By: #### 2 [id number] #### [facility],[address] [place] [address] URIC ACIDon 08-08-2024 URIC ACID Normal [facility] Comment on above: Result Comment: SEE SCANNED REPORT Performed By: #### 2 [id number] #### [facility],[address] [place] [address]35[address] BMP with eGFRon 08-06-2024 AGE 68 years Normal [facility] Comment on above: Performed By: #### 2 [id number] #### [facility],[address] [place] [address]9868 Anion gap [Moles/Vol] 18 mmol/L Normal 10 - 20 [facility] Comment on above: Performed By: #### 2 01734 #### [facility],[address] [place] [address]40 BMP with eGFR Normal [facility] Comment on above: Result Comment: BASI C METABOLIC PANEL Performed By: #### 2 83942 #### [facility],[address] [place] [address]991 Calcium [Mass/Vol] 8.5 mg/dL Normal 8.5 - 10.1 [facility] Comment on above: Performed By: #### 2 46639 #### [facility],[address] [place] [address]803 Chloride [Moles/Vol] 106 mmol/L Normal 98 - 107 [facility] Comment on above: Performed By: #### 2 37009 #### [facility],[address] [place] [address]40 CO2 [Moles/Vol] 23.0 mmol/L Normal 21.0 - 32.0 [facility] Comment on above: Performed By: #### 2 63427 #### [facility],[address] [place] [address] Creatinine [Mass/Vol] 1.59 mg/dL High 0.55 - 1.02 [facility] Comment on above: Performed By: #### 2 [address] #### [facility],[address] [place] [address]53 eGFR 32 ML/MINUTE Low 60 - 999 [facility] Comment on above: Performed By: #### 2 99173 #### [facility],[address] [place] [address] eGFR(AA) 39 ML/MINUTE Low 60 - 999 [facility] Comment on above: Result Comment: ACCO RDING TO THE NATIONAL KIDNEY DISEASE EDUCATION PROGRAM(NKDE), A NORMAL eGFR IS A VALUE GREATER THAN OR EQUAL TO 60 ML/MIN/1.73 SQ METERS. CHRONIC KIDNEY DISEASE: <60mL/MIN/1.73 SQ METERS KIDNEY FAILURE: <15mL/MIN/1.73 SQ METERS THIS TEST SHOULD ONLY BE USED FOR PATIENTS 18 YEARS OF AGE AND OLDER. Performed By: #### 2 89087 #### [facility],[address] [place] [address] Glucose [Mass/Vol] 93 mg/dL Normal 74 - 106 [facility] Comment on above: Performed By: #### 2 80650 #### [address] [address] Potassium [Moles/Vol] 3.6 mmol/L Normal 3.5 - 5.1 [facility] Comment on above: Performed By: #### 2 65649 #### [address] [address] Sodium [Moles/Vol] 143 mmol/L Normal 136 - 145 [facility] Comment on above: Performed By: #### 2 78644 #### [address] [address] Urea nitrogen [Mass/Vol] 42 mg/dL High 7 - 18 [facility] Comment on above: Performed By: #### 2 28898 #### [facility],[address] [place] [address] CBC + DIFFon 08-06-2024 Baso # 0.03 x10EE3/UL Normal 0.00 - 0.10 [facility] Comment on above: Performed By: #### 2 55200 #### [address] [address] Basophils/100 WBC (Bld) 0.5 % Normal 0.0 - 2.0 [facility] Comment on above: Performed By: #### 2 16809 #### [place] [address] CBC + DIFF Normal [facility] Comment on above: Result Comment: CBC- COMPLETE BLOOD COUNT Performed By: #### 2 47156 #### [place] [address] EO # 0.18 x10EE3/UL Normal 0.00 - 0.50 [facility] Comment on above: Performed By: #### 2 76942 #### [place] [address] Eosinophils/100 WBC (Bld) 3.0 % Normal 0.0 - 7.0 [facility] Comment on above: Performed By: #### 2 03450 #### [place] [address] Erythrocyte distribution width (RBC) [Ratio] 12.9 % Normal 12.0 - 15.6 [facility] Comment on above: Performed By: #### 2 16108 #### [place] [address] Hematocrit (Bld) [Volume fraction] 39.7 % Normal 34.0 - 46.0 [facility] Comment on above: Performed By: #### 2 47031 #### [facility],[address] [place] [address] Hemoglobin (Bld) [Mass/Vol] 13.3 g/dL Normal 12.0 - 16.0 [facility] Comment on above: Performed By: #### 2 85231 #### [place] [address] Lymph # 1.15 x10EE3/UL Normal 0.80 - 2.80 [facility] Comment on above: Performed By: #### 2 33197 #### [facility] [place] [address] Lymphocytes/100 WBC (Bld) 18.7 % Low 20.0 - 45.0 [facility] Comment on above: Performed By: #### 2 47518 #### [facility],[address] [place] [address] MANUAL DIFF N/A Normal [facility] Comment on above: Performed By: #### 2 62668 #### [facility],[address] [place] [address] MCH (RBC) [Entitic mass] 31 pg Normal 27 - 33 [facility] Comment on above: Performed By: #### 2 33293 #### [facility],[address] [place] [address] MCHC 34 X10 3 Normal 32 - 36 [facility] Comment on above: Performed By: #### 2 23738 #### [facility],[address] [place] [address] MCV (RBC) [Entitic vol] 93 fL Normal 80 - 99 [facility] Comment on above: Performed By: #### 2 61215 #### [facility],[address] [place] [address] [place] # 0.53 x10EE3/UL Normal 0.20 - 1.00 [facility] Comment on above: Performed By: #### 2 44136 #### [facility],[address] [place] [address] MONOS % 8.6 % Normal 0.0 - 10.0 [facility] Comment on above: Performed By: #### 2 19812 #### [facility],[address] [place] [address] Morphology Yuri (Bld) [Interp] N/A Normal [facility] Comment on above: Performed By: #### 2 45865 #### [facility],[address],[place] [address] Neut # 4.26 x10EE3/UL Normal 1.50 - 7.10 [facility] Comment on above: Performed By: #### 2 97866 #### [facility],[address] [place] [address] Neutrophils/100 WBC (Bld) 69.3 % Normal 46.0 - 76.0 [facility] Comment on above: Performed By: #### 2 12997 #### [facility],[address] [place] [address] PLATELET 221 x10EE3/UL Normal 150 - 450 [facility] Comment on above: Performed By: #### 2 26664 #### [facility],[address] [place] [address] Platelet mean volume (Bld) [Entitic vol] 8.6 fL Normal 6.6 - 10.5 [facility] Comment on above: Result Comment: AUTO MATED DIFFERENTIAL Performed By: #### 2 71942 #### [facility],[address] [place] [address] RBC 4.26 x 10EE6/UL Normal 4.10 - 5.30 [facility] Comment on above: Performed By: #### 2 05524 #### [facility],[address] [place] [address] WBC 6.2 x 10EE3/UL Normal 4.5 - 10.8 [facility] Comment on above: Performed By: #### 2 55368 #### [facility],[address] [place] [address] 62-EZ-Kpeplhg DOrdered By: Star Rodríguez on 07-30-2024 Vitamin D 25-Hydroxy 18.2 ng/mL [facility] Comment on above: Vitamin D 25(OH) Sta tus Range Deficiency <20 ng/mL (50nmol/L) Insufficiency 20 - 30 ng/mL (50 - 75 nmol/L) Sufficiency 30 - 100 ng/mL (75 - 250 nmol/L) Toxicity >100 ng/mL (>250 nmol/L) Calcium,Totalon 07-30-2024 CA,Total 9.5 mg/dL Normal 8.5-10.1 [facility] Comment on above: Performed By: #### L 506.1000, L501.2200, L509.1000 #### [facility] [address] [place], [place], [address] Intact parathyroid hormone ( iPTH) measurementOrdered By: Jose Rodríguez on 07-30-2024 Parathyroid Hormone (Intact) 174.4 pg/mL High 18.4-80.1 [facility] PTHINon 07-30-2024 PTH 174.4 pg/mL High 18.4-80.1 [facility] Comment on above: Performed By: #### L 506.1000, L501.2200, L509.1000 #### [facility] [address] [place], [place], [address] Serum or plasma calcium oli urement (mass/volume)Ordered By: Jose Rodríguez on 07-30-2024 Calcium [Mass/Vol] 9.5 mg/dL 8.5-10.1 [facility] Special Stain Group IIon Special Stain Group II Patient Age/Sex Location Account Attending Physician FELIPA LIMA 68/F P[facility] [id number] Dr. Jose Rodríguez MD Specimen: [id number] Received: 07/30/24 Status: INDER Arboleda Num: [id number] Spec Type: Fluid Subm Dr: Dr. Jose Rodríguez MD HEADER OPERATION: Fine needle aspiration of left thyroid nodule PRE-OP DIAGNOSIS: Left thyroid nodule TISSUE SUBMITTED: A- Left inferior thyroid nodule fluid, B- Left inferior thyroid slides DIAGNOSIS CYTOLOGY A. Left inferior thyroid nodule fluid, fine needle aspiration (cytospins and cellblock): Negative for malignant cells. See comment. B. Left inferior thyroid, fine needle aspiration (smears): Non diagnostic specimen, [place] Category I. See comment. SJ.mr 08/01/2024 COMMENT A. Rare follicular cells and scant amount of colloid is noted. B. The specimen consists of rare follicular cells and scant amount of diluted colloid. The specimen is non-diagnostic due to lack of adequate number of follicular cells. The [place] System for thyroid diagnostic categorization was used in the evaluation of this case. Correlation with clinical, radiologic findings and appropriate follow up are necessary. CYTOLOGY STUDY Slides are reviewed. CYTOLOGY GROSS A. Received is 40 ml of red-cloudy fluid labeled with the patient's name and and designated per the requisition as Left inferior thyroid nodule. Submitted for cytology preparation including cell block. B. Received are 6 smears labeled with the patient's name and designated per the requisition as Left inferior thyroid nodule. Submitted for staining. Mr 07/31/2024 TC: Can not code CPT: 98549c4,95421 Signed (signature on file) Dr. Miles Wang MD 08/01/24 1201 Normal [facility] Comment on above: Performed By: #### P SSII ####[facility] [address] [place], [address] Surgery Visit Reporton 07-30 Surgery Visit Report [facility] [address] [place] [address] OFFICE VISIT Date of Service: 07/30/24 MR#: [id number] Acct: [id number] Name: FELIPA LIMA SHREYAS Rep #: [id number] : 1955 Provider: Dr. Jose campbell MD Age/Sex: 68/F Location: [facility] Status: Signed Intake Vital Signs 11/04/21 09:55 07/17/24 11:11 07/30/24 13:52 Height 5 ft 3 in 5 ft 3 in 5 ft 3 in Weight: 234 lb 6 oz 239 lb BMI 41.5 42.3 BP 129/84 H 144/90 H Blood Pressure Location Rt radial Position Sitting Respiration 16 18 Pulse 68 69 Pulse Source Monitor Pulse Oximetry (%) 96 97 Oxygen Delivery Method room air room air Intake Visit Reasons: THYROID NODULE Chief Complaint: thyroid nodule Is patient in pain?: No Allergies cephalexin Allergy (Severe, Verified 07/30/24 13:52) Other Iodinated Contrast Media Allergy (Mild, Verified 07/30/24 13:52) rash latex Allergy (Verified 07/30/24 13:52) Rash wool Allergy (Verified 07/30/24 13:52) Rash codeine Adverse Reaction (Mild, Verified 07/30/24 13:52) gi upset morphine Adverse Reaction (Mild, Verified 07/30/24 13:52) gi upset Medications ???Medication ???Instructions ???Recorded ???Confirmed ???Type allopurinol 100 mg tablet 100 mg PO DAILY 10/13/21 07/30/24 History sodium bicarbonate 650 mg tablet 650 mg PO TID 10/13/21 07/30/24 Hi story pantoprazole 40 mg tablet,delayed 20 mg PO DAILY 07/16/24 07/30/24 History release risankizumab-rzaa 150 mg/mL 150 mg subcut Q12W 07/16/24 History subcutaneous pen injector (Adelsoyrizdione) acetaminophen 500 mg capsule 500 mg PO Q6H PRN 07/17/24 5 History nitrofurantoin macrocrystal 100 mg 100 mg PO Q12H PRN 07/17/2409/18 History capsule oxybutynin chloride 10 mg 10 mg PO QDAY 07/17/24 07/30/24 Hi story tablet,extended release 24 hr peg 3350-electrolytes 236 240 ml PO Q10M Colonoscopy #4,000 07/17/24 07/30/24 Rx gram-22.74 gram-6.74 gram-5.86 mL gram solution (Golytely) Have you fallen in the past year?: No PFSH Medical History Wears glasses Post-menopausal Alcohol use History of renal disease Former smoker History of edema Hydronephrosis, right Right ureteral calculus History of uterine leiomyoma Edema Fatigue GERD (gastroesophageal reflux disease) Stage 5 chronic kidney disease Surgical History History of surgery History of ureter stent Hx of foot surgery History of hysterectomy History of colonoscopy Family History Father Diabetes Hypertension Cancer skin Mother Hypertension Brother Colon cancer Social History Smoking Status: Former smoker how long ago did patient quit smokin years HPI HPI HPI: Patient is a 68-year-old female who presents for evaluation of a incidentally discovered left thyroid nodule. They are referred for surgical consultation from Dr. Davis. This was discovered initially during surveillance CT imaging for patient's history of multiple nephrolithiasis (including a large staghorn calculus in 2019). They do not experience difficulty with swallowing. They do complain of a new cough, but estimates this has been present since at least 2019 when they started oxybutynin and blame this cough on exceptional dryness. They do not appreciate new voice changes. They do have a history of snoring/sleep apnea. Additionally, their weight has been fluctuating and they do have a history of weight gain of approximately 12 pounds in recent months. There is no history of recent fatigue. They do report a history of some heat intolerance as they describe warm flashes extending from their waist down and they clearly have never been through menopause. They deny any unusual sweating habits. They deny any irregular bowel habits. They do not have a family history of thyroid disorders or endocrinopathies. There is no history of prior radiation exposure. Previous work-up has included thyroid ultrasound. This study was performed on 07/04/2024 and showed a right thyroid lobe measuring 4.4 x 1.8 x 1.8 cm. Within this lobe radiology identified a nodule measuring 1.0 x 0.9 x 1.0 cm and was described as homogenous in echotexture in the superior pole. The left thyroid lobe measured 4.4 x 2.1 x 2.0 cm. Within this lobe radiology identified a nodule measuring 1.5 x 1.8 x 1.5 cm with a complex solid and cystic appearance. An FNA has not been performed but biopsy was recommended. Other tests include: TSH: 2.44, T4: 7.0, PTH: 107, ionized calcium: 1.2 (07/06/2024) ROS General General: No weight change, appetite, fatigue, co (more content not included)... Normal [facility] Vitamin D,25 Hydroxyon 07-30 Vitamin D 25-OH 18.2 ng/mL Normal [facility] Comment on above: Result Comment: Chio min D 25(OH) Status Range Deficiency <20 ng/mL (50nmol/L) Insufficiency 20 - 30 ng/mL (50 - 75 nmol/L) Sufficiency 30 - 100 ng/mL (75 - 250 nmol/L) Toxicity >100 ng/mL (>250 nmol/L) Performed By: #### L 506.1000, L501.2200, L509.1000 #### [facility] [address] [place], [address] Hepatitis A AB, Totalon 06-28 HEPATITIS A,TOT Negative Normal Negative [facility] Comment on above: Result Comment: Comm ent: The HAV total antibody assay detects both IgG and IgM but does not differentiate between them. A negative result suggests susceptibility to infection. A positive result could be due to vaccination, previously resolved infection or active infection. Testing for HAV IgM should be performed if active HAV infection is suspected. [employer] offers profiles that will automatically reflex positive HAV total antibody results to IgM (e.g., panel #[id number] HAV Antibody w/ Rfx). Performed at: [address] [id number] Data Integration Architect: Miguel Anaya PhD, Phone: [phone] Performed By: #### L 100.0100, L3890.6200, L500.4050, L3100.0300, L3100.0460, L3890.6100, L3890.6300 ####[facility] [address] [place], [place], [id number] Hepatitis B Core Ab Totalon 07-19-2024 HEP B CORE,TOT Negative Normal Negative [facility] Comment on above: Performed By: #### L 100.0100, L3890.6200, L500.4050, L3100.0300, L3100.0460, L3890.6100, L3890.6300 ####[facility] [address] [place], [place], [id number] L3410.9999on 07-19-2024 [facility] COM[facility] Normal . [facility] Comment on above: Order Comment: [id number] Liver Fibrosis SERUM RED RF Result Comment: Perf ormed at: [address] [id number] Data Integration Architect: Miguel Anaya PhD, Phone: [phone] Performed By: #### L 3410.9999 #### [facility] [address] [place], [address] Absolute lymphocyte countOrd ered By: Babs Bernadr on 07-17-2024 Lymphocytes Auto (Unsp spec) [#/Vol] 0.81 10*3/uL Low 0.83-4.51 [facility] Absolute neutrophil countOrd ered By: Babs Bernard on 07-17-2024 Neutrophils (Bld) [#/Vol] 3.9 10*3/uL 2.0-7.7 [facility] Albumin to globulin ratioOrd ered By: Babs Bernard on 07-17-2024 Albumin/Globulin [Mass ratio] 0.9 {ratio} 0.9-2.4 [facility] Automated lymphocyte count a s percentage of total leukocytesOrdered By: Babs Bernard on 07-17-2024 Lymphocytes/100 WBC Auto (Unsp spec) 15.3 % Low 19-41 [facility] Basophil percentageOrdered B y: Babs Bernard on 07-17-2024 Basophils/100 WBC (Bld) 0.4 % 0-1 [facility] Bilirubin, totalOrdered By: Babs Bernard on 07-17-2024 Bilirubin [Mass/Vol] 0.40 mg/dL 0.20-1.00 [facility] Comment on above: For patients on eltr ombopag therapy, use of Dimension Jacobson TBIL is not recommended. Blood urea nitrogen (BUN)/cr eatinine ratioOrdered By: Babs Bernard on 07-17-2024 Urea nitrogen/Creatinine [Mass ratio] 21.2 mg/mg High 10-20 [facility] CBC W/Diff, Automatedon 06-28 Absolute Lymph 0.81 X10 3/uL Low 0.83-4.51 [facility] Comment on above: Performed By: #### L 100.0100, L3890.6200, L500.4050, L3100.0300, L3100.0460, L3890.6100, L3890.6300 ####[facility] [address] [place], [address] Absolute Neut 3.9 X10 3/uL Normal 2.0-7.7 [facility] Comment on above: Performed By: #### L 100.0100, L3890.6200, L500.4050, L3100.0300, L3100.0460, L3890.6100, L3890.6300 ####[facility] [address] [place], [address] Basophils/100 WBC (Bld) 0.4 % Normal 0-1 [facility] Comment on above: Performed By: #### L 100.0100, L3890.6200, L500.4050, L3100.0300, L3100.0460, L3890.6100, L3890.6300 ####[facility] [address] [place], [address] Eosinophils/100 WBC (Bld) 2.8 % Normal 0-5 [facility] Comment on above: Performed By: #### L 100.0100, L3890.6200, L500.4050, L3100.0300, L3100.0460, L3890.6100, L3890.6300 ####[facility] [address] [place], [address] Erythrocyte distribution width (RBC) [Ratio] 12.5 % Normal 11.6-14.6 [facility] Comment on above: Performed By: #### L 100.0100, L3890.6200, L500.4050, L3100.0300, L3100.0460, L3890.6100, L3890.6300 ####[facility] [address] [place], [address] Hematocrit (Bld) [Volume fraction] 41.2 % Normal 37-47 [facility] Comment on above: Performed By: #### L 100.0100, L3890.6200, L500.4050, L3100.0300, L3100.0460, L3890.6100, L3890.6300 ####[facility] [address] [place], [address] Hemoglobin (Bld) [Mass/Vol] 12.9 g/dL Normal 12.0-15.0 [facility] Comment on above: Performed By: #### L 100.0100, L3890.6200, L500.4050, L3100.0300, L3100.0460, L3890.6100, L3890.6300 ####[facility] [address] [place], [address]( IG% 0.200 Normal 0.0-0.9 [facility] Comment on above: Result Comment: IG% - Immature Granulocytes (promyelocytes, myelocytes and metamyelocytes) > 1% indicates that a LEFT SHIFT is Present. Performed By: #### L 100.0100, L3890.6200, L500.4050, L3100.0300, L3100.0460, L3890.6100, L3890.6300 ####[facility] [address] [place], [address] Lymphocytes/100 WBC (Bld) 15.3 % Low 19-41 [facility] Comment on above: Performed By: #### L 100.0100, L3890.6200, L500.4050, L3100.0300, L3100.0460, L3890.6100, L3890.6300 ####[facility] [address] [place], [address] MCH (RBC) [Entitic mass] 30.0 pg Normal 27.0-32.0 [facility] Comment on above: Performed By: #### L 100.0100, L3890.6200, L500.4050, L3100.0300, L3100.0460, L3890.6100, L3890.6300 ####[facility] [address] [place], [address] MCHC (RBC) [Mass/Vol] 31.3 g/dL Low 32-36 [facility] Comment on above: Performed By: #### L 100.0100, L3890.6200, L500.4050, L3100.0300, L3100.0460, L3890.6100, L3890.6300 ####[facility] [address] [place], [address] MCV (RBC) [Entitic vol] 95.8 fL Normal 81-99 [facility] Comment on above: Performed By: #### L 100.0100, L3890.6200, L500.4050, L3100.0300, L3100.0460, L3890.6100, L3890.6300 ####[facility] [address] [place], [address] Monocytes/100 WBC (Bld) 7.5 % Normal 0-10 [facility] Comment on above: Performed By: #### L 100.0100, L3890.6200, L500.4050, L3100.0300, L3100.0460, L3890.6100, L3890.6300 ####[facility] [address] [place], [address] Neutrophils/100 WBC (Bld) 73.8 % High 47-70 [facility] Comment on above: Performed By: #### L 100.0100, L3890.6200, L500.4050, L3100.0300, L3100.0460, L3890.6100, L3890.6300 ####[facility] [address] [place], [address] Nucleated RBC (Bld) [#/Vol] 0 10*3/uL Normal 0-5 [facility] Comment on above: Performed By: #### L 100.0100, L3890.6200, L500.4050, L3100.0300, L3100.0460, L3890.6100, L3890.6300 ####[facility] [address] [place], [address] Platelet mean volume (Bld) [Entitic vol] 10.7 fL Normal 6.2-12.0 [facility] Comment on above: Performed By: #### L 100.0100, L3890.6200, L500.4050, L3100.0300, L3100.0460, L3890.6100, L3890.6300 ####[facility] [address] [place], [address] Platelets (Bld) [#/Vol] 195 10*3/uL Normal 150-450 [facility] Comment on above: Performed By: #### L 100.0100, L3890.6200, L500.4050, L3100.0300, L3100.0460, L3890.6100, L3890.6300 ####[facility] [address] [place], [address] RBC (Bld) [#/Vol] 4.30 10*6/uL Normal 4.2-5.4 [facility] Comment on above: Performed By: #### L 100.0100, L3890.6200, L500.4050, L3100.0300, L3100.0460, L3890.6100, L3890.6300 ####[facility] [address] [place], [address] RDW SD 44.0 fl High 35.1-43.9 [facility] Comment on above: Performed By: #### L 100.0100, L3890.6200, L500.4050, L3100.0300, L3100.0460, L3890.6100, L3890.6300 ####[facility] [address] [place], [place], [address] WBC (Bld) [#/Vol] 5.3 10*3/uL Normal 4.4-11.0 [facility] Comment on above: Performed By: #### L 100.0100, L3890.6200, L500.4050, L3100.0300, L3100.0460, L3890.6100, L3890.6300 ####[facility] [address] [place], [address] Carbon dioxide measurementOr dered By: Babs Bernard on 07-17-2024 CO2 [Moles/Vol] 26.0 mmol/L 21.0-32.0 [facility] Chloride measurementOrdered By: Babs Bernard on 07-17-2024 Chloride [Moles/Vol] 108 mmol/L High 98-107 [facility] Comprehensive Metabolic Prof ilon 07-17-2024 Albumin [Mass/Vol] 3.5 g/dL Normal 3.2-5.0 [facility] Comment on above: Performed By: #### L 100.0100, L3890.6200, L500.4050, L3100.0300, L3100.0460, L3890.6100, L3890.6300 ####[facility] [address] [place], [address] Albumin/Globulin [Mass ratio] 0.9 {ratio} Normal 0.9-2.4 [facility] Comment on above: Performed By: #### L 100.0100, L3890.6200, L500.4050, L3100.0300, L3100.0460, L3890.6100, L3890.6300 ####[facility] [address] [place], [address] ALK P 74 U/L Normal 45-117 [facility] Comment on above: Performed By: #### L 100.0100, L3890.6200, L500.4050, L3100.0300, L3100.0460, L3890.6100, L3890.6300 ####[facility] [address] [place], [address] ALT [Catalytic activity/Vol] 16 U/L Normal 13-56 [facility] Comment on above: Performed By: #### L 100.0100, L3890.6200, L500.4050, L3100.0300, L3100.0460, L3890.6100, L3890.6300 ####[facility] [address] [place], [address] AST [Catalytic activity/Vol] 10 U/L Low 15-37 [facility] Comment on above: Performed By: #### L 100.0100, L3890.6200, L500.4050, L3100.0300, L3100.0460, L3890.6100, L3890.6300 ####[facility] [address] [place], [address] Bilirubin [Mass/Vol] 0.40 mg/dL Normal 0.20-1.00 [facility] Comment on above: Result Comment: For patients on eltrombopag therapy, use of Dimension Jacobson TBIL is not recommended. Performed By: #### L 100.0100, L3890.6200, L500.4050, L3100.0300, L3100.0460, L3890.6100, L3890.6300 ####[facility] [address] [place], [place], [id number] BUN/CRE 21.2 RATIO High 10-20 [facility] Comment on above: Performed By: #### L 100.0100, L3890.6200, L500.4050, L3100.0300, L3100.0460, L3890.6100, L3890.6300 ####[facility] [address] [place], [place], [phone](112) CA,Total 9.0 mg/dL Normal 8.5-10.1 [facility] Comment on above: Performed By: #### L 100.0100, L3890.6200, L500.4050, L3100.0300, L3100.0460, L3890.6100, L3890.6300 ####[facility] [address] [place], [address] Chloride [Moles/Vol] 108 mmol/L High 98-107 [facility] Comment on above: Performed By: #### L 100.0100, L3890.6200, L500.4050, L3100.0300, L3100.0460, L3890.6100, L3890.6300 ####[facility] [address] [place], [address] CO2 [Moles/Vol] 26.0 mmol/L Normal 21.0-32.0 [facility] Comment on above: Performed By: #### L 100.0100, L3890.6200, L500.4050, L3100.0300, L3100.0460, L3890.6100, L3890.6300 ####[facility] [address] [place], [address] Creatinine [Mass/Vol] 1.60 mg/dL High 0.55-1.02 [facility] Comment on above: Result Comment: The validity of the calculated GFR GFRAA in patients over 70 years has not been determined. Clinical correlation is essential. Performed By: #### L 100.0100, L3890.6200, L500.4050, L3100.0300, L3100.0460, L3890.6100, L3890.6300 ####[facility] [address] [place], [address] EST GFR - AA 41 mL/min Low >60 [facility] Comment on above: Result Comment: Afri can Indonesian GFR Calc Performed By: #### L 100.0100, L3890.6200, L500.4050, L3100.0300, L3100.0460, L3890.6100, L3890.6300 ####[facility] [address] [place], [address] GAP 6 Normal 5-15 [facility] Comment on above: Performed By: #### L 100.0100, L3890.6200, L500.4050, L3100.0300, L3100.0460, L3890.6100, L3890.6300 ####[facility] [address] [place], [address] GFR/1.73 sq M.predicted among non-blacks MDRD (S/P/Bld) [Vol rate/Area] 34 mL/min/{1.73_m2} Low >60 [facility] Comment on above: Result Comment: Non- GFR Calc Performed By: #### L 100.0100, L3890.6200, L500.4050, L3100.0300, L3100.0460, L3890.6100, L3890.6300 ####[facility] [address] [place], [address] Globulin (S) [Mass/Vol] 3.8 g/dL Normal 2.2-4.2 [facility] Comment on above: Performed By: #### L 100.0100, L3890.6200, L500.4050, L3100.0300, L3100.0460, L3890.6100, L3890.6300 ####[facility] [address] [place], [address] Glucose [Mass/Vol] 112 mg/dL High 74-106 [facility] Comment on above: Result Comment: Fast ing Glucose result from 100 to 125 mg/dL suggests IMPAIRED HOMEOSTASIS per A.D.A. criteria. Performed By: #### L 100.0100, L3890.6200, L500.4050, L3100.0300, L3100.0460, L3890.6100, L3890.6300 ####[facility] [address] [place], [address] Potassium [Moles/Vol] 4.1 mmol/L Normal 3.5-5.1 [facility] Comment on above: Performed By: #### L 100.0100, L3890.6200, L500.4050, L3100.0300, L3100.0460, L3890.6100, L3890.6300 ####[facility] [address] [place], [address] Sodium [Moles/Vol] 140 mmol/L Normal 136-145 [facility] Comment on above: Performed By: #### L 100.0100, L3890.6200, L500.4050, L3100.0300, L3100.0460, L3890.6100, L3890.6300 ####[facility] [address] [place], [address] T PROT 7.3 g/dL Normal 6.4-8.2 [facility] Comment on above: Performed By: #### L 100.0100, L3890.6200, L500.4050, L3100.0300, L3100.0460, L3890.6100, L3890.6300 ####[facility] [address] [place], [address] Urea nitrogen [Mass/Vol] 34 mg/dL High 7-18 [facility] Comment on above: Performed By: #### L 100.0100, L3890.6200, L500.4050, L3100.0300, L3100.0460, L3890.6100, L3890.6300 ####[facility] [address] [place], [address] Eosinophil percentageOrdered By: Babs Bernard on 07-17-2024 Eosinophils/100 WBC (Bld) 2.8 % 0-5 [facility] Erythrocyte distribution wid th ratioOrdered By: Babs Bernard on 07-17-2024 Erythrocyte distribution width (RBC) [Ratio] 12.5 % 11.6-14.6 [facility] Erythrocyte distribution wid th standard deviationOrdered By: Babs Bernard on 07-17-2024 Erythrocyte distribution width (RBC) [Entitic vol] 44.0 fL High 35.1-43.9 [facility] Erythrocyte distribution width (RBC) [Ratio] 44.0 fl High 35.1-43.9 [facility] Estimated glomerular filtrat ion rate (GFR) AmericanOrdered By: Babs Bernard on 07-17-2024 Estimated GFR (MDRD) Amer 41 mL/min Low >60 [facility] Comment on above: GFR Calc Gastroenterology Visit Repor ton 07-17-2024 Gastroenterology Visit Report [facility] [address] [place] [address] OFFICE VISIT Date of Service: 07/17/24 MR#: [id number] Acct: [id number] Name: FELIPA LIMA SHREYAS Rep #: [id number] : 1955 Provider: MIKEL bar Age/Sex: 68/F [place] [facility] [place]: [place] Intake Vital Signs 11/04/21 09:55 07/17/24 11:11 Height 5 ft 3 in 5 ft 3 in Weight: 234 lb 6 oz BMI 41.5 BP 129/84 H Respiration 16 Pulse 68 Pulse Oximetry (%) 96 Oxygen Delivery Method room air Intake Visit Reasons: SANDOVAL'S, FATTY LIVER Chief Complaint: Sandoval's, fatty liver, colon screening Waste 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 Required: No Is patient in pain?: No Allergies cephalexin Allergy (Severe, Verified 07/17/24 11:04) Other Iodinated Contrast Media Allergy (Mild, Verified 07/17/24 11:04) rash latex Allergy (Verified 07/17/24 11:04) Rash wool Allergy (Verified 07/17/24 11:04) Rash codeine Adverse Reaction (Mild, Verified 07/17/24 11:04) gi upset morphine Adverse Reaction (Mild, Verified 07/17/24 11:04) gi upset Medications ???Medication ???Instructions ???Recorded ???Confirmed ???Type allopurinol 100 mg tablet 100 mg PO DAILY 10/13/21 07/16/24 History sodium bicarbonate 650 mg tablet 650 mg PO TID 10/13/21 07/16/24 History pantoprazole 40 mg tablet,delayed 20 mg PO DAILY 07/16/24 07/16/24 History release risankizumab-rzaa 150 mg/mL 150 mg subcut Q12W 07/16/24 07/16/24 History subcutaneous pen injector (Skyrizi) acetaminophen 500 mg capsule 500 mg PO Q6H PRN 07/17/24 07/17/24 History nitrofurantoin macrocrystal 100 mg 100 mg PO Q12H PRN 07/17/24 07/17/24 History capsule oxybutynin chloride 10 mg 10 mg PO QDAY 07/17/24 07/17/24 History tablet,extended release 24 hr peg 3350-electrolytes 236 240 ml PO Q10M Colonoscopy #4,000 07/17/24 07/17/24 Rx gram-22.74 gram-6.74 gram-5.86 mL gram solution (Golytely) Have you fallen in the past year?: No Nurse's Note: It's time for a screening of the colon and EGD. Brother had colon cancer. Has occasional constipation. PFS Medical History Wears glasses Post-menopausal Alcohol use History of renal disease Former smoker History of edema Hydronephrosis, right Right ureteral calculus History of uterine leiomyoma Edema Fatigue GERD (gastroesophageal reflux disease) Stage 5 chronic kidney disease Surgical History History of surgery History of ureter stent Hx of foot surgery History of hysterectomy History of colonoscopy Family History Father Diabetes Hypertension Cancer skin Mother Hypertension Brother Colon cancer Social History Smoking Status: Former smoker how long ago did patient quit smokin years HPI HPI Chief Complaint: Sandoval's, fatty liver, colon screening Details: FELIPA LIMA, is a 68 F who presents to the office today for 68y/o female referred by Dr. Katz for Sandoval's, screening colonoscopy and fatty liver. PMH is significant for CKD3 and psoriasis. She reports a history of perforated duodenal ulcer in 2018 and Sandoval's esophagus diagnosed in 2018. ABD US performed May 2023 revealed hepatomegaly with liver steatosis. EGD 2020 Sandoval's EGD 2018 duodenal ulcer with hemorrhage and perforation HAV Total Ab: HBVsA10/20/2020 negative HBVsAb: 10/20/2020 negative HBV Core Ab Total: 10/27/2022 negative HCV Ab: 12/04/2018 negative CBC: January 2024 CMP: January 2024 ABD US: 06/25/[address] Chest/ABD/Pelvis w/o contrast 09/29/2023 hepatomegaly, splenomegaly, left thyroid nodule and pyelonephritis. HB well controlled on pantoprazole - denies any dysphagia - denies any N/V - denies any weight loss - pending thyroid nodule biopsy - reports no known cause of duodenal ulcer EtOH: once a year Family h/o liver disease: denies Tattoos - yes Brother with colon CA - diagnosed in 50's - reports her bowels are fairly regular - occasional diarrhea - denies any bleeding - reports she had a colonoscopy in her 20's - implant right hip to control bladder frequency Skyrizi for psoriasis ROS Const Constitutional: No fatigue, fever(s) or weight change ENT ENT: No difficulty swallowing Cardio Cardiology: Positive for leg pain with exertion Gastro GI: Positive for abdominal pain, bloating and heartburn; No belching, change in bowel habits, change in stool character, coffee ground emesis, constipation, cramping, diarrhea, difficulty swallowing, feeling full early, excessive flatus, incontinent of stools, Vomiting blood/hematemesis, Blood in (more content not included)... Normal [facility] Glomerular filtration rate ( GFR) estimationOrdered By: Babs Bernard on 07-17-2024 Estimated GFR (MDRD) Non-Af Amer 34 mL/min Low >60 [facility] Comment on above: Non- GFR Calc GFR/1.73 sq M.predicted among non-blacks MDRD (S/P/Bld) [Vol rate/Area] 34 mL/min/{1.73_m2} Low >60 [facility] Comment on above: Non- GFR Calc Glucose measurementOrdered B y: Babs Bernard on 07-17-2024 Glucose [Mass/Vol] 112 mg/dL High 74-106 [facility] Comment on above: Fasting Glucose resu lt from 100 to 125 mg/dL suggests IMPAIRED HOMEOSTASIS per A.D.A. criteria. HBV core Ab Ql (S)Ordered By : Babs Bernard on 07-17-2024 Hepatitis B Core Total Antibody Negative Negative [facility] HBV surface IgG Ql (S)Ordere d By: Babs Bernard on 07-17-2024 Hepatitis B Surface Antibody Non-Reactive [facility] Comment on above: Non Reactive: Incons istent with immunity less than <10 mIU/mL Reactive: Consistent with immunity greater than or equal to 10 mIU/mL Hematocrit Auto (Bld) [Volum e fraction]Ordered By: Babs Bernard on 07-17-2024 Hematocrit (Bld) [Volume fraction] 41.2 % 37-47 [facility] Hemoglobin measurementOrdere d By: Babs Bernard on 07-17-2024 Hemoglobin (Bld) [Mass/Vol] 12.9 g/dL 12.0-15.0 [facility] Hepatitis A virus total anti body assayOrdered By: Babs Bernard on 07-17-2024 Hepatitis A Antibody Total Negative Negative [facility] Comment on above: Comment: The HAV tot al antibody assay detects both IgG andIgM but does not differentiate between them. A negativeresult suggests susceptibility to infection. A positiveresult could be due to vaccination, previously resolvedinfection or active infection. Testing for HAV IgM shouldbe performed if active HAV infection is suspected. [facility]ers profiles that will automatically reflex positive HAVtotal antibody results to IgM (e.g., panel #[id number] HAVAntibody w/ Rfx).Performed at: [facility] [address] [id number] Director: Miguel Anaya PhD, Phone: [phone] Hepatitis B Surface Antibody on 07-17-2024 HEP B Surf Ab Non-Reactive Normal [facility] Comment on above: Order Comment: Reaso n for Exam: MASLD Result Comment: Non Reactive: Inconsistent with immunity less than <10 mIU/mL Reactive: Consistent with immunity greater than or equal to 10 mIU/mL Performed By: #### L 100.0100, L3890.6200, L500.4050, L3100.0300, L3100.0460, L3890.6100, L3890.6300 ####[facility] [address] [place], [address] Hepatitis B Surface Antigeno n 07-17-2024 HEP B Surf Ag Non-Reactive Normal Nonreactive [facility] Comment on above: Order Comment: Reaso n for Exam: MASLD Performed By: #### L 100.0100, L3890.6200, L500.4050, L3100.0300, L3100.0460, L3890.6100, L3890.6300 ####[facility] [address] [place], [address] Hepatitis B surface antigen detectionOrdered By: Babs Bernard on 07-17-2024 Hepatitis B Surface Antigen Non-Reactive Nonreactive [facility] Hepatitis C Antibodyon 07-17 Hepatitis C AB [facility]-Reactive [facility] Comment on above: Order Comment: Reaso n for Exam: MASLD Result Comment: Non Reactive: < 0.8 Equivocal: >/= 0.8 to < 1.0 Reactive: >/= 1.0 The [facility] requires that a reactive/equivocal HCV antibody result be sent out for confirmation. HCV Quant by PCR testing. Performed By: #### L 100.0100, L3890.6200, L500.4050, L3100.0300, L3100.0460, L3890.6100, L3890.6300 ####[facility] [address] [place], [address] Hepatitis C virus antibody a ssayOrdered By: Babs Bernard on 07-17-2024 Hepatitis C Antibody Non-Reactive Nonreactive [facility] Comment on above: Non Reactive: < 0.8 Equivocal: >/= 0.8 to < 1.0 Reactive: >/= 1.0The CDC requires that a reactive/equivocal HCV antibody result be sent out for confirmation. HCV Quant by PCR testing. Immature granulocytes/100 WB C Auto (Bld)Ordered By: Babs Bernard on 07-17-2024 Immature granulocytes/100 WBC (Bld) 0.200 % 0.0-0.9 [facility] Comment on above: IG% - Immature Granu locytes (promyelocytes, myelocytes and metamyelocytes) > 1% indicates that a LEFT SHIFT is Present. Laboratory - Chemistry and C hemistry - challengeOrdered By: Babs Bernard on 07-17-2024 AST [Catalytic activity/Vol] 10 U/L Low 15-37 [facility] Lymphocytes Auto (Unsp spec) [#/Vol]Ordered By: Babs Bernard on 07-17-2024 Lymphocytes (Bld) [#/Vol] 0.81 10*3/uL Low 0.83-4.51 [facility] Lymphocytes/100 WBC Auto (Un sp spec)Ordered By: Babs Bernard on 07-17-2024 Lymphocytes/100 WBC (Bld) 15.3 % Low 19-41 [facility] MCV (mean corpuscular volume ) determinationOrdered By: Babs Bernard on 07-17-2024 MCV (RBC) [Entitic vol] 95.8 fL 81-99 [facility] Mean corpuscular hemoglobin (MCH) determinationOrdered By: Babs Bernard on 07-17-2024 MCH (RBC) [Entitic mass] 30.0 pg 27.0-32.0 [facility] Mean corpuscular hemoglobin concentration (MCHC) determinationOrdered By: Babs Bernard on 07-17-2024 MCHC (RBC) [Mass/Vol] 31.3 g/dL Low 32-36 [facility] Mean platelet volume determi nationOrdered By: Babs Bernard on 07-17-2024 Platelet mean volume (Bld) [Entitic vol] 10.7 fL 6.2-12.0 [facility] Monocyte percentageOrdered B y: Babs Bernard on 07-17-2024 Monocytes/100 WBC (Bld) 7.5 % 0-10 [facility] Neutrophil percentageOrdered By: Babs Bernard on 07-17-2024 Neutrophils/100 WBC (Bld) 73.8 % High 47-70 [facility] No Panel InformationOrdered By: Babs Bernard on 07-17-2024 Miscellaneous Test COMMENT . [facility] Comment on above: Performed at: [facility] [employer] [address] [id number] Director: Miguel Anaya PhD, Phone: [phone] Nucleated red blood cell per centageOrdered By: Babs Bernard on 07-17-2024 Nucleated RBC/100 WBC (Bld) [Ratio] 0 % 0-5 [facility] Platelet countOrdered By: Buster Bernard on 07-17-2024 Platelets (Bld) [#/Vol] 195 10*3/uL 150-450 [facility] Potassium measurementOrdered By: Babs Bernard on 07-17-2024 Potassium [Moles/Vol] 4.1 mmol/L 3.5-5.1 [facility] RBC Auto (Bld) [#/Vol]Ordere d By: Babs Bernard on 07-17-2024 RBC (Bld) [#/Vol] 4.30 10*6/uL 4.2-5.4 [facility] Serum anion gap measurementO rdered By: Babs Bernard on 07-17-2024 Anion gap [Moles/Vol] 6 mmol/L 5-15 [facility] Serum globulin measurementOr dered By: Babs Bernard on 07-17-2024 Globulin (S) [Mass/Vol] 3.8 g/dL 2.2-4.2 [facility] Serum hepatitis B virus core antibody detectionOrdered By: Babs Bernard on 07-17-2024 HBV core Ab Ql (S) Negative Negative [facility] Serum hepatitis B virus surf parth antibody IgG detectionOrdered By: Babs Bernard on 07-17-2024 HBV surface IgG Ql (S) Non-Reactive [facility] Comment on above: Non Reactive: Incons istent with immunity less than <10 mIU/mL Reactive: Consistent with immunity greater than or equal to 10 mIU/mL Serum or plasma alanine vo otransferase (ALT) measurementOrdered By: Babs Bernard on 07-17-2024 ALT [Catalytic activity/Vol] 16 U/L 13-56 [facility] Serum or plasma albumin oli urement (mass/volume)Ordered By: Babs Bernard on 07-17-2024 Albumin [Mass/Vol] 3.5 g/dL 3.2-5.0 [facility] Serum or plasma alkaline bg sphatase measurementOrdered By: Babs Bernard on 07-17-2024 ALP [Catalytic activity/Vol] 74 U/L 45-117 [facility] Serum or plasma calcium oli urement (mass/volume)Ordered By: Babs Bernard on 07-17-2024 Calcium [Mass/Vol] 9.0 mg/dL 8.5-10.1 [facility] Serum or plasma creatinine m easurement (mass/volume)Ordered By: Babs Bernard on 07-17-2024 Creatinine [Mass/Vol] 1.60 mg/dL High 0.55-1.02 [facility] Comment on above: The validity of the calculated GFR & GFRAA in patients over 70 years has not been determined. Clinical correlation is essential. Serum or plasma urea nitroge n measurement (mass/volume)Ordered By: Babs Bernard on 07-17-2024 Urea nitrogen [Mass/Vol] 34 mg/dL High 7-18 [facility] Sodium levelOrdered By: Jacklyn Bernard on 07-17-2024 Sodium [Moles/Vol] 140 mmol/L 136-145 [facility] Total proteinOrdered By: Lolly Bernard on 07-17-2024 Protein [Mass/Vol] 7.3 g/dL 6.4-8.2 [facility] White blood cell (WBC) count Ordered By: Babs Bernard on 07-17-2024 WBC (Bld) [#/Vol] 5.3 10*3/uL 4.4-11.0 [facility] CALCIUM IONIZED [CCL]on 06-27 Calcium [Moles/Vol] 1.17 mmol/L Normal 1.08-1.30 [facility] Comment on above: Performed By: #### 2 [id number] #### [facility],[address] [place] [address] Calcium, Ionized 1.20 mmol/L Normal 1.08-1.30 [facility] Comment on above: Result Comment: [facility] [address] [place] [address] Antonio Chatman III, M.D. [id number] Performed By: #### 2 [id number] #### [facility],[address] [place] [address] PTH, INTACT [CCL]on 07-07-19 25 PTH, Intact 107 pg/mL High [facility] Comment on above: Result Comment: [facility] [address] [place] [address] Antonio Chatman III, M.D. [id number] Performed By: #### 2 07428 #### [facility],[address] [place] [address] T4 (THYROXINE) TOTALon 07-06 T4 (THYROXINE) TOTAL Normal [facility] Comment on above: Result Comment: THYR OXINE(T4) Performed By: #### 2 93316 #### [facility],[address] [place] [address] T4 [Mass/Vol] 7.0 ug/dL Normal 4.7 - 13.3 [facility] Comment on above: Performed By: #### 2 04593 #### [facility],[address] [place] [address] TSHon 07-06-2024 TSH Qn 2.44 m[IU]/L Normal 0.35 - 3.74 [facility] Comment on above: Performed By: #### 2 20997 #### [facility],[address] [place] [address] Ext Non Vasc Limited/Soft Ti sson 07-04-2024 Ext Non Vasc Limited/Soft Tiss [facility] [address] [place], [place] [id number] Ext Non Vasc Limited/Soft Tiss MR#: [id number] Acct: [id number] Name: FELIPA LIMA Rep #: [id number] : 1955 F 68 From: Liborio carroll MD PCP: Dr. Kandace Katz MD Status: REG CLI Study: Ext Non Vasc Limited/Soft Tiss Date of Exam: 0 07/04/24 Exam# [id number] Ordering Dr: Kandace Katz MD [id number] STUDY: SUPERFICIAL ULTRASOUND - UPPER LEFT THIGH. REASON FOR EXAM: Female, 68 years old. CONCERN FOR CYSTS/POCKETS OF INFECTION - THIGHS TECHNIQUE: A superficial ultrasound was performed with real-time and static glass-scale imaging. COMPARISON: None. FINDINGS: The upper anterior thigh at the site of the incision was examined. No residual fluid is seen. US/Ext Non Vasc Limited/Soft Tiss IMPRESSION: Unremarkable examination. Electronically Signed: Liborio Lombardo MD at 9:09 EST , CC: Dr. Kandace Katz MD County Agricultural Agent: Signed Normal [facility] SCRN MAMM (CAD)W/YESSENIARadha Quick n 07-04-2024 SCRN MAMM (CAD)W/YESSENIA BILAT [facility] [address] [place], [place] [id number] SCRN MAMM (CAD)W/YESSENIA BILAT MR#: [id number] Acct: [id number] Name: FELIPA LIMA Rep #: [id number] : 1955 F 68 From: Liborio carroll MD PCP: Dr. Kandace Katz MD Status: REG CL Study: SCRN MAMM (CAD)W/YESSENIA BILAT Date of Exam: 02/18 Exam# [id number] Ordering Dr: Kandace Katz MD [id number] MAMMOGRAPHY - BILATERAL SCREENING REASON FOR EXAM: Female, 68 years old. Routine annual screening examination. PERTINENT HISTORY: Non-contributory. TECHNIQUE: Digital bilateral breast yessenia (3D mammographic acquisition) in the CC and MLO projections. 2-D mediolateral oblique (MLO) and craniocaudad (CC) views of both breasts were obtained. CAD: Full Field Digital Mammography with Computer Added Detection was performed. COMPARISON: Comparison is made with prior study dated October 14, 2022. FINDINGS: Breast Composition: There are scattered areas of fibroglandular density. There are no dominant masses or suspicious calcifications. Once again, there is asymmetry of breast tissue with more breast tissue is seen in the upper outer aspect of the left breast as compared to the right side. Stable small left axillary lymph nodes. No other significant abnormalities are identified. There has been no significant change since the prior study. BI/SCRN MAMM (CAD)W/YESSENIA BILAT IMPRESSION: Stable bilateral screening mammogram. Yearly follow-up mammogram recommended. (A) ASSESSMENT CATEGORY: BIRADS Category 2: Benign. A letter regarding these results will be sent to the patient by the facility within 30 days. Approximately 10% of breast cancers are not detected by mammography. A normal mammogram should not delay biopsy of a clinically suspicious abnormality. [id number] Electronically Signed: Liborio Lombardo MD at 13:01 EST , CC: Dr. Kandace Katz MD County Agricultural Agent: Signed Normal [facility] Thyroidon 07-04-2024 Thyroid [facility] [address] [place], [place] [id number] Thyroid MR#: [id number] Acct: [id number] Name: FELIPA LIMA Rep #: [id number] : 1955 F 68 From: Liborio carroll MD PCP: Dr. Kandace Katz MD Status: [facility] Study: Thyroid Date of Exam: 07/04/24 Exam# [id number] Ordering Dr: Kandace Katz MD [id number] STUDY: THYROID ULTRASOUND REASON FOR EXAM: Female, 68 years old. Thyroid nodule. TECHNIQUE: Ultrasound evaluation of the thyroid was performed with real-time and static glass-scale imaging. COMPARISON: None. FINDINGS: RIGHT LOBE: The right lobe of the thyroid gland measures 4.4 cm and 1.8 cm x 1.8 cm. There is a homogeneous echotexture. There is a 1 cm x 0.9 cm x 1 cm slightly echogenic nodule in the upper pole. LEFT LOBE: The left lobe of the thyroid gland measures 4.4 cm x 2.1 cm x 2 cm. There is a heterogeneous echotexture. There is a 1.5 cm x 1.8 cm x 1.5 cm complex solid and cystic nodule in the lateral aspect of the lower pole of the left lobe. Biopsy recommended. ISTHMUS: The isthmus measures 1 mm. The regional lymph nodes are normal. US/Thyroid IMPRESSION: Complex nodule in the left lobe of the thyroid as described. Biopsy recommended. Electronically Signed: Liborio Lombardo MD at 9:02 EST , CC: Dr. Kandace Katz MD County Agricultural Agent: Signed Normal [facility] [facility]INE [facility] [CCL]on 2023 Bacteria identified Cx Nom (U) URCUL See Results Below See Below CULTURE, URINE MIXED MICROBIOTA 10,000 -<50,000 CFU/ml Mixed microbiota No further workup. Mixed microbiota can be due to???urine???contamination with s llection technique or straight catheterization for???urine???collection. SOURCE: Urine (Nonspecific) [place] [address] Antonio Chatman III, M.D. [id number] SEND TO IC NO Normal [facility] Comment on above: Performed By: #### 2 [id number] #### [facility],[address] [place] [address] 05-16-2024 [facility] Telephone (URTealeafSS) -- FELIPA LIMA ([id number]) 1955 F Date Time Provider Department 05/16/24 PORSHA TRAMMELL During your visit today, we recorded the following information about you: Cody Da Silva RN 05/16/2024 10:53 AM Signed Received VM from patient stating she went got a urine culture on Tuesday. She is wanting to know the results, as she is still feeling miserable. Called patient and let her know the culture is still in progress. She is now having nausea. No fever or chills. Still having the burning, urgency, frequency and suprapubic pain. She wants to know if you could call something in until the culture results. DOROTHY Alaniz Lindsay, APRN.CREDIT UNION EXAMINER 05/16/2024 11:11 AM Signed The following approved medication requests have been transmitted electronically. Requested Prescriptions Signed Prescriptions Disp Refills ciprofloxacin HCl (CIPRO) 500 mg tablet 14 tablet 0 Sig: Take 1 tablet by mouth two times a day for 7 days. FOR 7 DAYS. Authorizing Provider: FAITH PADRON APRN.CREDIT UNION EXAMINER Will call with results of c+s Cody Da Silva RN 05/16/2024 11:21 AM Signed Called patient and let her know that a RX was sent in for Cipro, and that we will call her with her culture results. She voiced understanding. Cody Da Silva RN Allergies As of Date: 05/16/2024 Noted Allergy Reaction KEFLEX (CEPHALEXIN) 10/26/2023 2 - Rash CODEINE 07/06/2022 8 - GI Upset GADOLINIUM-CONTAINING CONTRAST ME*07/06/2022 4 - Hives LATEX 07/06/2022 2 - Rash MORPHINE 07/06/2022 8 - GI Upset WOOL 07/06/2022 2 - Rash IODINATED CONTRAST MEDIA 06/15/2019 4 - Hives 2 - Rash Date Reviewed: 03/06/2024 Reviewed by: Nati John MA - Fully Assessed Reason for Visit: Results [95] Order(s):ciprofloxacin HCl (CIPRO) 500 mg tabletTake 1 tablet by mouth two times a day for 7 days. FOR 7 DAYS.Disp: 14 tabletRfl: 0 Prescriptions as of 05/16/2024 - ciprofloxacin HCl (CIPRO) 500 mg tablet Take 1 tablet by mouth two times a day for 7 days. FOR 7 DAYS. - oxybutynin ER (DITROPAN XL) 10 mg 24 hr tablet Take 1 tablet by mouth once daily. - sodium citrate-citric acid (BICITRA) 500-334 mg/5 mL solution TAKE 10 ML BY MOUTH THREE TIMES DAILY (DILUTED IN 1 TO 3 OUNCES OF WATER) - SKYRIZI 150 mg/mL injection Inject subcutaneously. Once every 3 months due october 2023-- will take following procedure. - sodium bicarbonate 650 mg tablet Take 650 mg by mouth three times daily. - furosemide (LASIX) 20 mg tablet Take 20 mg by mouth as needed. For swelling in legs hasn't taken in awhile - allopurinol (ZYLOPRIM) 100 mg tablet Take 100 mg by mouth every morning. - pantoprazole DR (PROTONIX) 40 mg tablet Take 40 mg by mouth every morning. Problem List As Of Date 05/16/2024 Noted Resolved Gastroesophageal reflux disease [K21.9] 07/06/2022 VICKI (acute kidney injury) (HCC) [N17.9] 07/06/2022 Morbidly obese (HCC) [E66.01] 07/06/2022 Calculus of ureter [N20.1] 07/06/2022 Obesity, Class III, BMI >= 40 [E66.01] 08/26/2022 Stage 5 chronic kidney disease (HCC) [N18.5] 08/02/2023 Sensory urge incontinence [N39.41] 09/02/2023 Preop testing [Z01.818] 10/10/2023 Acute cystitis with hematuria [N30.01] 03/06/2024 Calculus of kidney [N20.0] 03/06/2024 Prescriptions ordered this encounter Disp Refills Start End CIPROFLOXACIN 500 MG TABLET 14 t* 0 05/16/2024 05/23/2024 Route: ORAL Sig: Take 1 tablet by mouth two times a day for 7 days. FOR 7 DAYS. Encounter Status:Closed by CODY DA SILVA on 05/16/24 [facility]oni 05-09-2024 ANAHYN Telephone (JENAROCANT) -- FELIPA LIMA ([id number]) 1955 F Date Time Provider Department 05/09/24 FAITH PADRON During your visit today, we recorded the following information about you: Hector Davila OCCA 05/09/2024 2:26 PM Signed Patient called into the office and left a message stating she thinks she may have another infection. I called and spoke with the pt. She states she is having frequency, pressure and burning while urinating. Pt denies any nausea, vomiting, night sweats, fever, or chills. Please advise. Thanks, DERRICK Sun Lindsay, APRN.CREDIT UNION EXAMINER 05/09/2024 2:30 PM Signed Pt has a standing urin culture order, can do this and call for results. Thanks, Faith Padron APRN.Hector Levine OCCA 05/10/2024 11:34 AM Signed I called and spoke with the pt. She states an understanding. She states she is having this completed at [facility] and will have them fax over the results to us. DERRICK Sun Brooke, RN 05/11/2024 10:47 AM Signed Standing urine culture lab order faxed to [facility] at [phone] per patient request Rafat Aragon RN Allergies As of Date: 05/09/2024 Noted Allergy Reaction KEFLEX (CEPHALEXIN) 10/26/2023 2 - Rash CODEINE 07/06/2022 8 - GI Upset GADOLINIUM-CONTAINING CONTRAST ME*07/06/2022 4 - Hives LATEX 07/06/2022 2 - Rash MORPHINE 07/06/2022 8 - GI Upset WOOL 07/06/2022 2 - Rash IODINATED CONTRAST MEDIA 06/15/2019 4 - Hives 2 - Rash Date Reviewed: 03/06/2024 Reviewed by: Nati John MA - Fully Assessed Reason for Visit: Returning Patient's Call [408] Prescriptions as of 05/11/2024 - oxybutynin ER (DITROPAN XL) 10 mg 24 hr tablet Take 1 tablet by mouth once daily. - sodium citrate-citric acid (BICITRA) 500-334 mg/5 mL solution TAKE 10 ML BY MOUTH THREE TIMES DAILY (DILUTED IN 1 TO 3 OUNCES OF WATER) - SKYRIZI 150 mg/mL injection Inject subcutaneously. Once every 3 months due october 2023-- will take following procedure. - sodium bicarbonate 650 mg tablet Take 650 mg by mouth three times daily. - furosemide (LASIX) 20 mg tablet Take 20 mg by mouth as needed. For swelling in legs hasn't taken in awhile - allopurinol (ZYLOPRIM) 100 mg tablet Take 100 mg by mouth every morning. - pantoprazole DR (PROTONIX) 40 mg tablet Take 40 mg by mouth every morning. Problem List As Of Date 05/09/2024 Noted Resolved Gastroesophageal reflux disease [K21.9] 07/06/2022 VICKI (acute kidney injury) (HCC) [N17.9] 07/06/2022 Morbidly obese (HCC) [E66.01] 07/06/2022 Calculus of ureter [N20.1] 07/06/2022 Obesity, Class III, BMI >= 40 [E66.01] 08/26/2022 Stage 5 chronic kidney disease (HCC) [N18.5] 08/02/2023 Sensory urge incontinence [N39.41] 09/02/2023 Preop testing [Z01.818] 10/10/2023 Acute cystitis with hematuria [N30.01] 03/06/2024 Calculus of kidney [N20.0] 03/06/2024 Encounter Status:Closed by HECTOR DAVILA on 05/10/24 [facility]oni 04-04-2024 ANAHY Telephone (JENAROCANT) -- FELIPA LIMA ([id number]) 1955 F Date Time Provider Department 04/04/24 JULIA SUAREZ During your visit today, we recorded the following information about you: Rafat Aragon RN 04/04/2024 10:31 AM Signed Patient called would like results of ct abd/pelvis and wants to know when to make follow up appointment. She would like to see Dr Trammell next time. Thanks, DOROTHY Charles Melissa, APRN.CREDIT UNION EXAMINER 04/04/2024 10:40 AM Signed She should have had a follow up to review the results, I will call her and review. Thanks Julia Suarez APRN.CREDIT UNION EXAMINER Allergies As of Date: 04/04/2024 Noted Allergy Reaction KEFLEX (CEPHALEXIN) 10/26/2023 2 - Rash CODEINE 07/06/2022 8 - GI Upset GADOLINIUM-CONTAINING CONTRAST ME*07/06/2022 4 - Hives LATEX 07/06/2022 2 - Rash MORPHINE 07/06/2022 8 - GI Upset WOOL 07/06/2022 2 - Rash IODINATED CONTRAST MEDIA 06/15/2019 4 - Hives 2 - Rash Date Reviewed: 03/06/2024 Reviewed by: Nati John MA - Fully Assessed Reason for Visit: Appointment [186] Results [95] Prescriptions as of 04/04/2024 - oxybutynin ER (DITROPAN XL) 10 mg 24 hr tablet Take 1 tablet by mouth once daily. - sodium citrate-citric acid (BICITRA) 500-334 mg/5 mL solution TAKE 10 ML BY MOUTH THREE TIMES DAILY (DILUTED IN 1 TO 3 OUNCES OF WATER) - SKYRIZI 150 mg/mL injection Inject subcutaneously. Once every 3 months due october 2023-- will take following procedure. - sodium bicarbonate 650 mg tablet Take 650 mg by mouth three times daily. - furosemide (LASIX) 20 mg tablet Take 20 mg by mouth as needed. For swelling in legs hasn't taken in awhile - allopurinol (ZYLOPRIM) 100 mg tablet Take 100 mg by mouth every morning. - pantoprazole DR (PROTONIX) 40 mg tablet Take 40 mg by mouth every morning. Problem List As Of Date 04/04/2024 Noted Resolved Gastroesophageal reflux disease [K21.9] 07/06/2022 VICKI (acute kidney injury) (HCC) [N17.9] 07/06/2022 Morbidly obese (HCC) [E66.01] 07/06/2022 Calculus of ureter [N20.1] 07/06/2022 Obesity, Class III, BMI >= 40 [E66.01] 08/26/2022 Stage 5 chronic kidney disease (HCC) [N18.5] 08/02/2023 Sensory urge incontinence [N39.41] 09/02/2023 Preop testing [Z01.818] 10/10/2023 Acute cystitis with hematuria [N30.01] 03/06/2024 Calculus of kidney [N20.0] 03/06/2024 Encounter Status:Closed by JULIA SUAREZ on 04/04/24 [facility] CT ABD/PEL WO IVCONon 2023 CT ABD/PEL WO IVCON * * *Final Report* * * DATE OF EXAM: Mar 25 2024 1:53PM [facility] 0531 - CT ABD/PEL WO IVCON / PROCEDURE REASON: Calculus of kidney * * * * Physician Interpretation * * * * EXAMINATION: CT ABDOMEN AND PELVIS WITHOUT IV CONTRAST CLINICAL HISTORY: Calculus of kidney TECHNIQUE: Non-IV contrast imaging of the abdomen and pelvis was performed using standard technique, scanning from just above the dome of the diaphragm to the symphysis pubis. Unenhanced imaging is limited for the evaluation of some intra-abdominal and pelvic pathology. MQ: CTAPWO_3 Contrast: IV: None : ml of CT Radiation dose: Integrated Dose-length product (DLP) for this visit = 601.70 mGy*cm. CT Dose Reduction Employed: Automated exposure control(AEC) and iterative recon COMPARISON: Multiple previous noncontrast CTs of the abdomen/pelvis, the most recent dated 08/28/2023 RESULT: Abdomen / Pelvis: Liver: Unremarkable within limitations of noncontrast technique. Biliary: Unremarkable gallbladder. No dilation of the common bile duct. Spleen: No splenomegaly. Pancreas: Unremarkable within limitations of noncontrast technique. Adrenals: No mass. Kidneys: Nonobstructing right renal calculi are noted measuring up to 1.1 cm in size, the stone burden is unchanged from the previous CT performed in August 2023. There is unchanged moderate right renal collecting system dilation, as well as nonspecific urothelial thickening involving the right renal pelvis and moderate stranding within the right renal sinus fat and adjacent to the proximal right ureter. No left-sided urinary calculi are identified. There is no left renal collecting system or ureteral dilation. GI Tract: No bowel dilation. Colonic diverticulosis is noted, there are no CT findings of diverticulitis. Lymph Nodes: No lymphadenopathy. Mesentery/peritoneum: No ascites. Retroperitoneum: No mass. Vasculature: Minimal calcified atherosclerotic disease noted involving a normal caliber abdominal aorta, no aneurysm. Pelvis: No mass or ascites. No bladder calculi identified. Bones/Soft Tissues: A small fat-containing hernia is noted in the epigastric region. A small fat-containing right inguinal hernia is present. No destructive skeletal lesion is present. Significant osteoarthritic changes noted at the left hip. Moderate multilevel lower thoracic and lumbar spine degenerative disc disease. Lower thorax: Unremarkable. Localizer images: No additional findings. IMPRESSION: 1. Nonobstructing right renal calculi measuring up to 1.1 m, the stone burden is unchanged from the CT performed in August 2023. There is unchanged moderate right renal collecting system dilation, as well as moderate edema/stranding within the renal sinus fat and adjacent to the proximal right ureter that is nonspecific. Correlation with urinalysis is recommended to exclude chronic infection. Assessment with ureteroscopy could be considered as warranted. 2. No additional acute finding in the abdomen/pelvis, within limitations of noncontrast technique. 3. Stable incidental findings are detailed above. County Agricultural Agent: VALENCIA Transcribe Date/Time: Mar 28 2024 4:18P Dictated by : HUBERT IBANEZ MD This examination was interpreted and the report reviewed and electronically signed by: HUBERT IBANEZ MD on Mar 28 2024 4:28PM EST [id number] [facility] 03-07-2024 [facility] -- FELIPA LIMA ([id number]) 1955 F Date Time Provider Department 03/07/24 FAITH PADRON During your visit today, we recorded the following information about you: Rafat Aragon RN 03/07/2024 1:55 PM Signed [facility] liliam Sheets states cefdinir ordered yesterday for patient allergy to keflex states rash to tongue. Attempted to call patient for more info, no answer. Left voicemail to call office back. Please advise. Thanks, DOROTHY [facility] Sheets: [phone] Faith Padron APRN.CNP 03/07/2024 2:06 PM Signed I'm going to switch her to Cipro for now because of her kidney function. Sent in rx below. The following approved medication requests have been transmitted electronically. Requested Prescriptions Signed Prescriptions Disp Refills ciprofloxacin HCl (CIPRO) 250 mg tablet 10 tablet 0 Sig: Take 1 tablet by mouth two times a day for 5 days. FOR 5 DAYS. Authorizing Provider: FAITH PADRON APRN.CREDIT UNION EXAMINER Rafat Aragno RN 03/07/2024 2:18 PM Signed Called and spoke with liliam Sheets at [facility] and notified Ciprofloxacin ordered cefdinir to be cancelled. Please notify patient when she calls back. Rafat Aragon RN Allergies As of Date: 03/07/2024 Noted Allergy Reaction KEFLEX (CEPHALEXIN) 10/26/2023 2 - Rash CODEINE 07/06/2022 8 - GI Upset GADOLINIUM-CONTAINING CONTRAST ME*07/06/2022 4 - Hives LATEX 07/06/2022 2 - Rash MORPHINE 07/06/2022 8 - GI Upset WOOL 07/06/2022 2 - Rash IODINATED CONTRAST MEDIA 06/15/2019 4 - Hives 2 - Rash Date Reviewed: 03/06/2024 Reviewed by: Nati John MA - Fully Assessed Reason for Visit: Orders [681] Order(s):ciprofloxacin HCl (CIPRO) 250 mg tabletTake 1 tablet by mouth two times a day for 5 days. FOR 5 DAYS.Disp: 10 tabletRfl: 0 Prescriptions as of 03/07/2024 - ciprofloxacin HCl (CIPRO) 250 mg tablet Take 1 tablet by mouth two times a day for 5 days. FOR 5 DAYS. - cefdinir (OMNICEF) 300 mg capsule Take 1 capsule by mouth two times a day for 5 days. - oxybutynin ER (DITROPAN XL) 10 mg 24 hr tablet Take 1 tablet by mouth once daily. - sodium citrate-citric acid (BICITRA) 500-334 mg/5 mL solution TAKE 10 ML BY MOUTH THREE TIMES DAILY (DILUTED IN 1 TO 3 OUNCES OF WATER) - SKYRIZI 150 mg/mL injection Inject subcutaneously. Once every 3 months due october 2023-- will take following procedure. - sodium bicarbonate 650 mg tablet Take 650 mg by mouth three times daily. - furosemide (LASIX) 20 mg tablet Take 20 mg by mouth as needed. For swelling in legs hasn't taken in awhile - allopurinol (ZYLOPRIM) 100 mg tablet Take 100 mg by mouth every morning. - pantoprazole DR (PROTONIX) 40 mg tablet Take 40 mg by mouth every morning. Problem List As Of Date 03/07/2024 Noted Resolved Gastroesophageal reflux disease [K21.9] 07/06/2022 VICKI (acute kidney injury) (HCC) [N17.9] 07/06/2022 Morbidly obese (HCC) [E66.01] 07/06/2022 Calculus of ureter [N20.1] 07/06/2022 Obesity, Class III, BMI >= 40 [E66.01] 08/26/2022 Stage 5 chronic kidney disease (HCC) [N18.5] 08/02/2023 Sensory urge incontinence [N39.41] 09/02/2023 Preop testing [Z01.818] 10/10/2023 Acute cystitis with hematuria [N30.01] 03/06/2024 Calculus of kidney [N20.0] 03/06/2024 Prescriptions ordered this encounter Disp Refills Start End CIPROFLOXACIN 250 MG TABLET 10 t* 0 03/07/2024 03/12/2024 Route: ORAL Sig: Take 1 tablet by mouth two times a day for 5 days. FOR 5 DAYS. Encounter Status:Closed by RAFAT ARAGON on 03/07/24 [facility] Bacteria Ur Culton 4 Bacteria identified Cx Nom (U) CULTURE, URINE: >=100,000 CFU/ml Normal Urogenital Abiodun [facility] Comment on above: Performed By: #### 6 30-4 ####[facility] [id number] [place] [id number] [place] CNOVon 03-06-2024 CNOV Office Visit (URCA52 2) -- FELIPA LIMA ([id number]) 1955 F Date Time Provider Department 03/06/24 11:30 AM JULIA SUAREZ [id number] During your visit today, we recorded the following information about you: Julia Suarez APRN.CREDIT UNION EXAMINER 03/06/2024 11:26 AM Signed [facility] ESTABLISHED PATIENT OFFICE VISIT Patient presents with: Sensory urge incontinence Nocturia: Getting up every hr-having issues the last month HISTORY OF PRESENT ILLNESS Felipa Iniguezmargaritaphyllis is a 68 year old female who is here for follow up of urge incontinence S/p Interstim placement 09/2023 Initially this worked well for her, but now having urgency and frequency again. She notes having pelvic pressure as well. Currently on Ditropan XL 10mg in addition to the Interstim. She has known renal stone, no recent imaging UA +large blood and leuk PVR 0ml Review of Systems The remainder of the ROS was reviewed and is negative. LAB Creatinine Date Value Ref Range Status 10/12/2023 1.88 (H) 0.51 - 0.95 mg/dL Final Comment: Patients receiving either N-Acetylcysteine (NAC) or Metamizole prior to venipuncture, may have falsely depressed results. No results found for: PSA, PSASC GLUCOSE UA (POCT) (mg/dL) Date Value 09/02/2023 Negative BILIRUBIN UA (POCT) (no units) Date Value 09/02/2023 Negative KETONE UA (POCT) (mg/dL) Date Value 09/02/2023 Negative SPECIFIC GRAVITY UA (POCT) (no units) Date Value 09/02/2023 1.020 HEMOGLOBIN/BLOOD UA (POCT) (no units) Date Value 09/02/2023 Large (A) PH UA (POCT) (no units) Date Value 09/02/2023 6.0 PROTEIN UA (POCT) (mg/dL) Date Value 09/02/2023 >=300 (A) UROBILINOGEN UA (POCT) (E.U./dL) Date Value 09/02/2023 0.2 NITRITE UA (POCT) (no units) Date Value 09/02/2023 Positive (A) LEUKOCYTES UA (POCT) (no units) Date Value 09/02/2023 Large (A) COLOR UA (POCT) (no units) Date Value 09/02/2023 Yellow CLARITY UA (POCT) (no units) Date Value 09/02/2023 Clear ] MEDICATIONS oxybutynin ER (DITROPAN XL) 10 mg 24 hr tablet Take 1 tablet by mouth once daily. sodium citrate-citric acid (BICITRA) 500-334 mg/5 mL solution TAKE 10 ML BY MOUTH THREE TIMES DAILY (DILUTED IN 1 TO 3 OUNCES OF WATER) SKYRIZI 150 mg/mL injection Inject subcutaneously. Once every 3 months due october 2023-- will take following procedure. sodium bicarbonate 650 mg tablet Take 650 mg by mouth three times daily. furosemide (LASIX) 20 mg tablet Take 20 mg by mouth as needed. For swelling in legs hasn't taken in awhile allopurinol (ZYLOPRIM) 100 mg tablet Take 100 mg by mouth every morning. pantoprazole DR (PROTONIX) 40 mg tablet Take 40 mg by mouth every morning. 0 HISTORIES PAST MEDICAL HISTORY No date: Chronic kidney disease, stage IV (severe) ([facility]) Comment: Dr. Nickerson No date: Kidney stones No date: PONV (postoperative nausea and vomiting) 2023: Sensory urge incontinence PAST SURGICAL HISTORY No date: COLON SURGERY HX Comment: repair rupture No date: CYSTOSCOPY Comment: several times No date: ESWL No date: F TOTAL ABDOMINAL HYSTERECTOMY No date: FRACTURE SURGERY; Right Comment: heel No date: INCISION AND DRAINAGE OF WOUND (IANDD) HX Comment: upper left thigh No date: LIPOMA (LARGE) Comment: upper abd. 09/2023: [employer] 1X4 POCKET ADAPTER; Left No date: PT ED OBSTETRICS AND GYNECOLOGY Comment: [facility] FAMILY HISTORY Problem Relation Age of Onset Colon Cancer Brother SOCIAL HISTORY Social History Tobacco Use Smoking status: Former Current packs/day: 0.00 Average packs/day: 0.5 packs/day for 20.0 years (10.0 ttl pk-yrs) Types: Cigarettes Start date: 1986 Quit date: 2006 Years since quittin.7 Smokeless tobacco: Never Vaping Use Vaping status: Never Used Substance Use Topics Alcohol use: Yes Comment: very seldom Drug use: Never There were no vitals taken for this visit. Physical Exam ASSESSMENT/PLAN: 1. Sensory urge incontinence [N39.41] - ICD9: 788.31, ICD10: N39.41 (primary diagnosis) HX: s/p Interstim placement () Doing well initially- freq/urgency but possibility because of UTI Will send urine, started Omnicef 300mg PO BID ( - BLADDER SCAN 2. Acute cystitis with hematuria - ICD9: 595.0, ICD10: N30.01 Will send urine for C/s - started Omnicef 300mg PO bid - URINE CULTURE 3. Calculus of kidney - ICD9: 592.0, ICD10: N20.0 Known hx Will obtain CT to eval further - will call with results - CT ABD/PEL WO HARDY Suarez, JEWELRY DESIGNER.CREDIT UNION EXAMINER This note was partially created using voice recognition software and is inherently subject to errors including those of syntax and sound-alike substitutions which may escape proofreading. In such instances, original meaning may be extrapolated by contextual derivation. Allergies As of Date: 03/06/2024 Noted Allergy Reaction (more content not included)... Normal [facility] PTH, INTACT [CCL]on 01-31-20 24 PTH, Intact 106 pg/mL High 15-65 [facility] Comment on above: Result Comment: [place] [id number] Antonio Chatman III, M.D. [id number] Performed By: #### 2 75916 #### [facility],[address] [place] [address] with eGFRon 01-30-2024 AGE 68 years Normal [facility] Comment on above: Performed By: #### 2 90769 #### [facility],[address] [place] [address] Anion gap [Moles/Vol] 19 mmol/L Normal 10 - 20 [facility] Comment on above: Performed By: #### 2 02631 #### [facility],[address] [place] [address] BMP with eGFR Normal [facility] Comment on above: Result Comment: BASI C METABOLIC PANEL Performed By: #### 2 93400 #### [facility],[address] [place] [address] Calcium [Mass/Vol] 8.6 mg/dL Normal 8.5 - 10.1 [facility] Comment on above: Performed By: #### 2 [id number] #### [facility],[address] [place] [address] Chloride [Moles/Vol] 105 mmol/L Normal 98 - 107 [facility] Comment on above: Performed By: #### 2 [id number] #### [facility],[address] [place] [address] CO2 [Moles/Vol] 19.3 mmol/L Low 21.0 - 32.0 [facility] Comment on above: Performed By: #### 2 [id number] #### [facility],[address] [place], [place] [id number] Creatinine [Mass/Vol] 1.97 mg/dL High 0.55 - 1.02 [facility] Comment on above: Performed By: #### 2 65976 #### [facility],[address] [place] [address] eGFR 25 ML/MINUTE Low 60 - 999 [facility] Comment on above: Performed By: #### 2 [id number] #### [facility],[address] [place] [address] eGFR(AA) 31 ML/MINUTE Low 60 - 999 [facility] Comment on above: Result Comment: ACCO RDING TO THE NATIONAL KIDNEY DISEASE EDUCATION PROGRAM(NKDE), A NORMAL eGFR IS A VALUE GREATER THAN OR EQUAL TO 60 ML/MIN/1.73 SQ METERS. CHRONIC KIDNEY DISEASE: <60mL/MIN/1.73 SQ METERS KIDNEY FAILURE: <15mL/MIN/1.73 SQ METERS THIS TEST SHOULD ONLY BE USED FOR PATIENTS 18 YEARS OF AGE AND OLDER. Performed By: #### 2 68426 #### [facility],[address] [place] [id number] Glucose [Mass/Vol] 168 mg/dL High 74 - 106 [facility] Comment on above: Performed By: #### 2 [id number] #### [facility],[address] [place] [address] Potassium [Moles/Vol] 4.0 mmol/L Normal 3.5 - 5.1 [facility] Comment on above: Performed By: #### 2 [id number] #### [facility] [facility],[address] [place] [address]1830 Sodium [Moles/Vol] 139 mmol/L Normal 136 - 145 [facility] Comment on above: Performed By: #### 2 54513 #### [facility],[address] [place] [address] 68045 Urea nitrogen [Mass/Vol] 39 mg/dL High 7 - 18 [facility] Comment on above: Performed By: #### 2 14575 #### [facility],[address] [place] [address] 63529 URIC ACIDon 01-30-2024 Urate [Mass/Vol] 7.8 mg/dL High 2.6 - 6.0 [facility] Comment on above: Performed By: #### 2 43564 #### [facility],[address] [place] [address] 94808 URINE CREATININE AND PROTEIN RATIOon 01-30-2024 CREATININE UR 138.03 mg/dl Normal [facility] Comment on above: Performed By: #### 2 78706 #### [facility],[address] [place] [address] 88551 PC RATIO 1.11 mg/dL Normal 0.00 - 10.00 [facility] Comment on above: Performed By: #### 2 34266 #### [facility],[address] [place] [address] 76221 Protein (U) [Mass/Vol] 153.00 mg/dL High 0.00 - 10.00 [facility] Comment on above: Performed By: #### 2 43473 #### [facility],[address] [place] [address] 25721 VITAMIN D, 25 HYDROXYon 08 VitD 20.70 ng/mL Low 30.00 - 100 [facility] Comment on above: Result Comment: 25-O HD3 indicates both endogenous production and supplementation. 25-OHD2 is an indicator of exogenous sources, such as diet or supplementation. Therapy is based on measurement of Total 25-OHD, with levels <20 ng/mL indicative of Vitamin D deficiency, while levels between 20 ng/mL and 30 ng/mL suggest insufficiency. Optimal levels are >=30ng/mL. Vitamin D, 25-OH D3 Not Established Vitamin D, 25-OH D2 Not Established Performed By: #### 2 16548 #### [facility],[address] [place] [address] 12403 CBC + DIFFon 01-29-2024 Baso # 0.03 x10EE3/UL Normal 0.00 - 0.10 [facility] Comment on above: Performed By: #### 2 97173 #### [facility],[address] [place] [address] 46984 Basophils/100 WBC (Bld) 0.4 % Normal 0.0 - 2.0 [facility] Comment on above: Performed By: #### 2 29515 #### [facility],[address] [place] [address] 95656 CBC + DIFF Normal [facility] Comment on above: Result Comment: CBC- COMPLETE BLOOD COUNT Performed By: #### 2 79162 #### [facility],[address] [place] [address] EO # 0.16 x10EE3/UL Normal 0.00 - 0.50 [facility] Comment on above: Performed By: #### 2 51383 #### [facility],[address] [place] [address] Eosinophils/100 WBC (Bld) 2.5 % Normal 0.0 - 7.0 [facility] Comment on above: Performed By: #### 2 03401 #### [place] [address] Erythrocyte distribution width (RBC) [Ratio] 13.5 % Normal 12.0 - 15.6 [facility] Comment on above: Performed By: #### 2 16761 #### [facility],[address] [place] [address] Hematocrit (Bld) [Volume fraction] 41.6 % Normal 34.0 - 46.0 [facility] Comment on above: Performed By: #### 2 74437 #### [facility],[address] [place] [address] Hemoglobin (Bld) [Mass/Vol] 14.3 g/dL Normal 12.0 - 16.0 [facility] Comment on above: Performed By: #### 2 02324 #### [facility],[address] [place] [address] Lymph # 1.10 x10EE3/UL Normal 0.80 - 2.80 [facility] Comment on above: Performed By: #### 2 03820 #### [place] [id number] Lymphocytes/100 WBC (Bld) 17.5 % Low 20.0 - 45.0 [facility] Comment on above: Performed By: #### 2 40289 #### [facility],[address] [place] [address] MANUAL DIFF N/A Normal [facility] Comment on above: Performed By: #### 2 57213 #### [facility],[address] [place] [address] MCH (RBC) [Entitic mass] 30 pg Normal 27 - 33 [facility] Comment on above: Performed By: #### 2 79633 #### [facility],[address] [place] [address] MCHC 34 X10 3 Normal 32 - 36 [facility] Comment on above: Performed By: #### 2 71417 #### [facility],[address] [place] [address] MCV (RBC) [Entitic vol] 89 fL Normal 80 - 99 [facility] Comment on above: Performed By: #### 2 32468 #### [facility],[address] [place] [address] [place] # 0.49 x10EE3/UL Normal 0.20 - 1.00 [facility] Comment on above: Performed By: #### 2 08596 #### [facility],[address] [place] [address] MONOS % 7.9 % Normal 0.0 - 10.0 [facility] Comment on above: Performed By: #### 2 83539 #### [facility],[address] [place] [address] Morphology Yuri (Bld) [Interp] N/A Normal [facility] Comment on above: Performed By: #### 2 88917 #### [place] [address] Neut # 4.50 x10EE3/UL Normal 1.50 - 7.10 [facility] Comment on above: Performed By: #### 2 93705 #### [place] [address] Neutrophils/100 WBC (Bld) 71.7 % Normal 46.0 - 76.0 [facility] Comment on above: Performed By: #### 2 43282 #### [facility],[address] [place] [address] 61155 PLATELET 211 x10EE3/UL Normal 150 - 450 [facility] Comment on above: Performed By: #### 2 27684 #### [facility],[address] [place] [address] 25998 Platelet mean volume (Bld) [Entitic vol] 8.9 fL Normal 6.6 - 10.5 [facility] Comment on above: Result Comment: AUTO MATED DIFFERENTIAL Performed By: #### 2 90977 #### [facility],[address] [place] [address] 57264 RBC 4.69 x 10EE6/UL Normal 4.10 - 5.30 [facility] Comment on above: Performed By: #### 2 12135 #### [facility],[address] [place] [address] 38646 WBC 6.3 x 10EE3/UL Normal 4.5 - 10.8 [facility] Comment on above: Performed By: #### 2 10661 #### [facility],[address] [place] [address] [facility] -- FELIPA LIMA ([id number]) 1955 F Date Time Provider Department 11/29/23 PORSHA TRAMMELL During your visit today, we recorded the following information about you: Jillian Mccrary LPN 11/29/2023 10:11 AM Signed Patient called to report increased urinary frequency/ urgency with activity, and night time urges. Her InterStim is currently set at .5 and she was wondering if she can increase it? if so how much? Thanks NAHED Anguiano Melissa, APRN.CREDIT UNION EXAMINER 11/29/2023 11:59 AM Signed Spoke with patient and reviewed questions/concerns. She verbalized understanding. Thanks Julia Suarez APRN.CREDIT UNION EXAMINER Allergies As of Date: 11/29/2023 Noted Allergy Reaction KEFLEX (CEPHALEXIN) 10/26/2023 2 - Rash CODEINE 07/06/2022 8 - GI Upset GADOLINIUM-CONTAINING CONTRAST ME*07/06/2022 4 - Hives LATEX 07/06/2022 2 - Rash MORPHINE 07/06/2022 8 - GI Upset WOOL 07/06/2022 2 - Rash Date Reviewed: 11/01/2023 Reviewed by: Indiana Burton - Fully Assessed Reason for Visit: Patient Question [2187] Prescriptions as of 11/29/2023 - sodium citrate-citric acid (BICITRA) 500-334 mg/5 mL solution TAKE 10 ML BY MOUTH THREE TIMES DAILY (DILUTED IN 1 TO 3 OUNCES OF WATER) - SKYRIZI 150 mg/mL injection Inject subcutaneously. Once every 3 months due october 2023-- will take following procedure. - oxybutynin ER (DITROPAN XL) 10 mg 24 hr tablet Take 1 tablet by mouth once daily. - sodium bicarbonate 650 mg tablet Take 650 mg by mouth three times daily. - furosemide (LASIX) 20 mg tablet Take 20 mg by mouth as needed. For swelling in legs hasn't taken in awhile - allopurinol (ZYLOPRIM) 100 mg tablet Take 100 mg by mouth every morning. - pantoprazole DR (PROTONIX) 40 mg tablet Take 40 mg by mouth every morning. Problem List As Of Date 11/29/2023 Noted Resolved Gastroesophageal reflux disease [K21.9] 07/06/2022 VICKI (acute kidney injury) (HCC) [N17.9] 07/06/2022 Morbidly obese (HCC) [E66.01] 07/06/2022 Calculus of ureter [N20.1] 07/06/2022 Obesity, Class III, BMI >= 40 [E66.01] 08/26/2022 Stage 5 chronic kidney disease (HCC) [N18.5] 08/02/2023 Sensory urge incontinence [N39.41] 09/02/2023 Preop testing [Z01.818] 10/10/2023 Encounter Status:Closed by JULIA SUAREZ on 11/29/23 [facility] CNOVon 11-01-2023 CNOV Office Visit (URCANT ) -- FELIPA LIMA ([id number]) 1955 F Date Time Provider Department 11/01/23 2:45 PM PORSHA TRAMMELL URCANPhyllis During your visit today, we recorded the following information about you: Porsha Trammell MD 11/01/2023 3:17 PM Signed ESTABLISHED PATIENT OFFICE VISIT F/u UUI. This has resolved with [facility] LAB RESULTS Creatinine Date Value Ref Range Status 10/12/2023 1.88 (H) 0.51 - 0.95 mg/dL Final Comment: Patients receiving either N-Acetylcysteine (NAC) or Metamizole prior to venipuncture, may have falsely depressed results. GLUCOSE UA (POCT) (mg/dL) Date Value 09/02/2023 Negative BILIRUBIN UA (POCT) (no units) Date Value 09/02/2023 Negative KETONE UA (POCT) (mg/dL) Date Value 09/02/2023 Negative SPECIFIC GRAVITY UA (POCT) (no units) Date Value 09/02/2023 1.020 HEMOGLOBIN/BLOOD UA (POCT) (no units) Date Value 09/02/2023 Large (A) PH UA (POCT) (no units) Date Value 09/02/2023 6.0 PROTEIN UA (POCT) (mg/dL) Date Value 09/02/2023 >=300 (A) UROBILINOGEN UA (POCT) (E.U./dL) Date Value 09/02/2023 0.2 NITRITE UA (POCT) (no units) Date Value 09/02/2023 Positive (A) LEUKOCYTES UA (POCT) (no units) Date Value 09/02/2023 Large (A) COLOR UA (POCT) (no units) Date Value 09/02/2023 Yellow CLARITY UA (POCT) (no units) Date Value 09/02/2023 Clear ] ALLERGIES Allergen Reactions Keflex [Cephalexin] Rash Codeine GI Upset Gadolinium-Containi* Hives Latex Rash Morphine GI Upset Wool Rash MEDICATIONS: sodium citrate-citric acid (BICITRA) 500-334 mg/5 mL solution TAKE 10 ML BY MOUTH THREE TIMES DAILY (DILUTED IN 1 TO 3 OUNCES OF WATER) SKYRIZI 150 mg/mL injection Inject subcutaneously. Once every 3 months due october 2023-- will take following procedure. oxybutynin ER (DITROPAN XL) 10 mg 24 hr tablet Take 1 tablet by mouth once daily. (Patient taking differently: Take 10 mg by mouth every morning.) sodium bicarbonate 650 mg tablet Take 650 mg by mouth three times daily. furosemide (LASIX) 20 mg tablet Take 20 mg by mouth as needed. For swelling in legs hasn't taken in awhile allopurinol (ZYLOPRIM) 100 mg tablet Take 100 mg by mouth every morning. pantoprazole DR (PROTONIX) 40 mg tablet Take 40 mg by mouth every morning. REVIEW OF SYSTEMS ACTIVE PROBLEM LIST Gastroesophageal Reflux Disease Vicki (Acute Kidney Injury) ([facility]) Morbidly Obese (Hcc) Calculus of Ureter Obesity, Class III, BMI >= 40 Stage 5 Chronic Kidney Disease (Hcc) Sensory Urge Incontinence Preop Testing HISTORIES PAST MEDICAL HISTORY Diagnosis Date Chronic kidney disease, stage IV (severe) ([facility] Dr. Nickerson Kidney stones PONV (postoperative nausea and vomiting) Sensory urge incontinence 2023 PAST SURGICAL HISTORY Procedure Laterality Date COLON SURGERY HX repair rupture CYSTOSCOPY several times ESWL F TOTAL ABDOMINAL HYSTERECTOMY FRACTURE SURGERY Right heel INCISION AND DRAINAGE OF WOUND (IANDD) HX upper left thigh LIPOMA (LARGE) upper abd. MEDTRONIC 1X4 POCKET ADAPTER Left 09/2023 PT [facility] FAMILY HISTORY Problem Relation Age of Onset Colon Cancer Brother SOCIAL HISTORY Social History Tobacco Use Smoking status: Former Packs/day: 0.50 Years: 20.00 Additional pack years: 0.00 Total pack years: 10.00 Types: Cigarettes Quit date: 2006 Years since quittin.3 Smokeless tobacco: Never Vaping Use Vaping Use: Never used Substance Use Topics Alcohol use: Yes Comment: very seldom Drug use: Never PHYSICAL EXAMINATION Dressing intact; no tenderness ASSESSMENT/PLAN: 1. Sensory urge incontinence [N39.41] - ICD9: 788.31, ICD10: N39.41 Resolved s/p Interstim placement () F/u in 3 months Porsha Trammell MD Allergies As of Date: 11/01/2023 Noted Allergy Reaction KEFLEX (CEPHALEXIN) 10/26/2023 2 - Rash CODEINE 07/06/2022 8 - GI Upset GADOLINIUM-CONTAINING CONTRAST ME*07/06/2022 4 - Hives LATEX 07/06/2022 2 - Rash MORPHINE 07/06/2022 8 - GI Upset WOOL 07/06/2022 2 - Rash Date Reviewed: 11/01/2023 Reviewed by: Indiana Burton - Fully Assessed Reason for Visit: Post Op [174] Cmt: Medtronic stage 2 Sensory urge incontinence Primary Visit Diagnosis:Sensory urge incontinence [N39.41] [N39.41] Order(s):BLADDER SCAN [[id number]] Order #: [id number] Prescriptions as of 11/01/2023 - sodium citrate-citric acid (BICITRA) 500-334 mg/5 mL solution TAKE 10 ML BY MOUTH THREE TIMES DAILY (DILUTED IN 1 TO 3 OUNCES OF WATER) - SKYRIZI 150 mg/mL injection Inject subcutaneously. Once every 3 months due october 2023-- will take following procedure. - oxybutynin ER (DITROPAN XL) 10 mg 24 hr tablet Take 1 tablet by mouth once daily. - sodium bicarbonate 650 mg tablet Take 650 mg by mouth three times daily. - furosemide (LASIX) 20 mg tablet Take 20 mg by mout (more content not included)... [facility] ANES POSTPROC EVALon 024 ANES POSTPROC EVAL HNO ID: [id number] Author: NEGRO MONTES MD Service: Anesthesiology Author Type: Anesthesiologist Type: Anesthesia Postprocedure Evaluation Filed: 10/28/2023 12:19 Note Text: POST ANESTHESIA EVALUATION NOTE : 1955 Procedure Summary Date: 10/26/23 Room / Location: OR 08 / OR Anesthesia Start: 1444 Anesthesia Stop: 1551 Procedures: INSRT NSTIM GENERATOR BLADDER W/ POCKET CREATE AND CONNECT BTWN ELCTRD ARRAY AND PULSE GENERATOR OR RECVR (Back lower ) ELECTRONIC ANALYSIS IMPLANTED NEUROSTIMULATOR BLADDER W/PROGRAMMING (Back lower ) Diagnosis: Sensory urge incontinence (Sensory urge incontinence [N39.41]) Surgeons: Porsha Trammell MD Responsible Provider: Negro Montes MD Anesthesia Type: MAC ASA Status: 3 Anesthesia Type: MAC Last Vitals Vitals Value Taken Time BP 130/71 10/26/23 1630 Temp 36.4 ?C (97.5 ?F) 10/26/23 1630 Pulse 65 10/26/23 1625 Resp 18 10/26/23 1630 SpO2 98 % 10/26/23 1625 Vitals shown include unfiled device data. Post Anesthesia Patient Status Patient Evaluation: PACU. PACU/ICU Patient Condition: stable. Anticipated Disposition: phase 2 then home. Neurological Status: aware and responsive. Pulmonary Status: breathing comfortably on room air Airway Control: returned to baseline unsupported. Cardiovascular Status: stable. Pain Management: clinically adequate Postoperative Hydration: acceptable. Intraoperative Events: no significant anesthesia events Post Operative Nausea/Vomiting Status: PONV - significant post operative nausea or vomiting with additional medications being ordered/administered. Recommendation: continue current plan of care. Anesthesia Observations No Documentation SIGNATURE: Negro Montes MD PATIENT NAME: eFlipa Lima DATE: October 28, 2023 TIME: 12:19 PM CSN: [id number] [facility] ANES PRE-OPon 10-26-2023 ANES PRE-OP HNO ID: [id number] Author: NEGRO MONTES MD Service: Anesthesiology Author Type: Anesthesiologist Type: Anesthesia Preprocedure Evaluation Filed: 10/26/2023 13:39 Note Text: ANESTHESIOLOGY DAY OF SURGERY NOTE : 1955 Procedure Information Date/Time: 10/26/23 1355 Procedures: INSRT NSTIM GENERATOR BLADDER W/ POCKET CREATE AND CONNECT BTWN ELCTRD ARRAY AND PULSE GENERATOR OR RECVR (Back lower ) ELECTRONIC ANALYSIS IMPLANTED NEUROSTIMULATOR BLADDER W/PROGRAMMING (Back lower ) Location: MR OR / OR Surgeons: Porsha Trammell MD Estimated body mass index is 41.71 kg/m? as calculated from the following: Height as of this encounter: 160 cm (5' 3). Weight as of this encounter: 106.8 kg (235 lb 7.2 oz). Most recent hematocrit and potassium results: Hematocrit 36.0 10/23/2021 Potassium 4.4 10/12/2023 Relevant Problems ANESTHESIA (within normal limits) CARDIO (within normal limits) ENDO (within normal limits) GI (+) Gastroesophageal reflux disease -RENAL (+) VICKI (acute kidney injury) (HCC) (+) Stage 5 chronic kidney disease (HCC) NEURO-PSYCH (within normal limits) PULMONARY (within normal limits) I - PHYSICAL EVALUATION AIRWAY Patient intubated: No. Tracheostomy tube not present Mallampati: II. TM distance: >3 FB. Neck ROM: full ROM without neurological symptoms. Mouth opening: adequate. Short neck: no. Thick neck: no Lorenzo present: no Microretrognathia/Micronag thia/Recessed Chin: No DENTAL Dental findings: teeth intact. Additional exam findings: no II - ANESTHESIA PLAN ASA Score: 3 Anesthetic Plan: MAC The patient is not a current smoker. NPO Status: adequate Beta Angela Monitoring Plan Monitoring plan: standard ASA. Post Procedure Analgesic Plan Postoperative analgesic plan: parenteral or oral opioids and multimodal analgesia. Informed Consent Anesthetic risks, benefits, alternatives, personnel and consent discussed: yes. Patient / Responsible Democrat agrees to proceed: yes Patient / Surrogate agrees to blood products: blood products not planned Potential Anesthesia issues that may suggest increased risk of complications or contraindication to planned procedure: none. Vitals Value Taken Time BP 168/79 10/26/23 1149 Pulse 73 10/26/23 1148 Resp 18 10/26/23 1148 Temp 36.4 ?C (97.5 ?F) 10/26/23 1148 SpO2 95 % 10/26/23 1148 Facility-Administered Medications as of 10/26/2023 Medication Dose Route Frequency - lidocaine (PF) 10 mg/mL (1 %) 2 mg injection (XYLOCAINE) 0.2 mL INTRADERMAL PRN - lactated ringers iv infusion 30 mL/hr INTRAVENOUS CONTINUOUS - NaCl 0.9% iv flush bag 20 mL INTRAVENOUS PRN - [COMPLETED] ceFAZolin iv piggyback 2 g in D5W (iso-osmotic) 100 mL (ANCEF) 2 g INTRAVENOUS ONCE Outpatient Medications as of 10/26/2023 Medication Sig - sodium citrate-citric acid (BICITRA) 500-334 mg/5 mL solution TAKE 10 ML BY MOUTH THREE TIMES DAILY (DILUTED IN 1 TO 3 OUNCES OF WATER) - SKYRIZI 150 mg/mL injection Inject subcutaneously. Once every 3 months due october 2023-- will take following procedure. - oxybutynin ER (DITROPAN XL) 10 mg 24 hr tablet Take 1 tablet by mouth once daily. (Patient taking differently: Take 10 mg by mouth every morning.) - sodium bicarbonate 650 mg tablet Take 650 mg by mouth three times daily. - furosemide (LASIX) 20 mg tablet Take 20 mg by mouth as needed. For swelling in legs hasn't taken in awhile - allopurinol (ZYLOPRIM) 100 mg tablet Take 100 mg by mouth every morning. - pantoprazole DR (PROTONIX) 40 mg tablet Take 40 mg by mouth every morning. - [] cephALEXin (KEFLEX) 500 mg capsule Take 1 capsule by mouth three times a day for 5 days. Save the last 15 tablets for the second procedure I have interviewed and examined the patient. I have reviewed the medical record and/or the pre-anesthesia evaluation, pertinent labs, and test results. This contains updated information obtained within 48 hours of Surgery/Procedure. SIGNATURE: Negro Montes MD PATIENT NAME: Felipa Lima DATE: October 26, 2023 TIME: 1:38 PM CSN: [id number] [facility] HISTORY PHYSICALon HISTORY PHYSICAL HNO ID: [id number] Author: PORSHA TRAMMELL MD Service: Urology Author Type: Physician Type: H&P Filed: 10/26/2023 13:23 Note Text: UPDATED HISTORY AND PHYSICAL EXAMINATION SERVICE DATE: 10/26/2023 SERVICE TIME: 1:23 PM PHYSICAL EXAM MUST BE COMPLETED ON ADMISSION The History and Physical (completed in the past 30 days) has been reviewed and the patient has been examined. The contents accurately reflect the patient's condition with the following additions or revisions since the HANDP was completed. Stage 1 was successful. Examination indicates no changes. This HANDP can be found in the [facility] chart. SIGNATURE: Porsha Trammell MD PATIENT NAME: Felipa Lima DATE: October 26, 2023 TIME: 1:23 PM [facility] NURSING PROGon 10-26-2023 NURSING PROG HNO ID: [id number] Author: PEGGY HAYDEN RN Service: Nursing Author Type: Registered Nurse Type: Nursing Progress Note Filed: 10/26/2023 16:10 Note Text: [facility] He stated he did not need to see patient. He was done with instructions and with the monitor. [facility] OPERATIVE NOon 10-26-2023 OPERATIVE NO HNO ID: [id number] Author: PORSHA TRAMMELL MD Service: Urology Author Type: Physician Type: Operative Report Filed: 10/26/2023 15:29 Note Text: OPERATIVE/PROCEDURE REPORT LOG ID: [id number] SURGERY/PROCEDURE DATE: 10/26/2023 INCISION/PROCEDURE START TIME: 3:13 PM INCISION CLOSE/PROCEDURE END TIME: SURGEON(S)/PROCEDURALIST(S ) AND FILM TESTS CHECKER(S): Surgeon(s) and Role: * Porsha Trammell MD - Primary Wrapper Stripper: Horn SA SURGERY/PROCEDURE(S): Stage II sacral nerve modulation with Interstim generator placement ANESTHESIA: Monitored Anesthesia Care SURGERY/PROCEDURE DETAILS: The patient was administered IV antibiotics and taken to the operating room where he was administered IV sedation. The patient was positioned prone. The dressing was removed. The patient was prepped with ChloraPrep, and sterilely draped. I injected local anesthetic in the incision site of the generator pouch. I opened the site bluntly using hemostats. I the temporary lead from the permanent lead. The temporary lead was pulled off of the field. I copiously irrigated the pouch. I attached the generator to the permanent lead. The wound was again irrigated and then the skin was closed with 3-0 Vicryl for the deep tissue and 4-0 Monocryl running stitch through the subcuticular tissue. The incision was covered with Dermabond, Steri-Strips, Telfa, and a Bioclusive dressing. PRE-OP/PRE-PROCEDURE DIAGNOSIS: Urgency urinary incontinence POST-OP/POST-PROCEDURE DIAGNOSIS: Urgency urinary incontinence ESTIMATED BLOOD LOSS: 0 ml SPECIMENS: None IMPLANTABLE DEVICES: Interstim Generator DRAINS: None COMPLICATIONS: None PARTICIPATION IN SURGERY/PROCEDURE: I/primary surgeon/proceduralist performed the procedure with assistance. SIGNATURE: Porsha Trammell MD PATIENT NAME: Felipa Lima DATE: October 26, 2023 TIME: 3:29 PM Normal [facility] ANES PREOPon 10-24-2023 ANES PREOP HNO ID: [id number] Author: MEGAN SLATER APRN.CREDIT UNION EXAMINER Service: ? Author Type: Nurse Practitioner Type: Anesthesia PreOp Filed: 10/24/2023 08:24 Note Text: 67 yo exsmoker [place] female with HX: CKD IV ([place]), kidney stones, PONV ECHO 07/2020: LVEF 60 to 65% with mild LV diastolic dysfunction The left atrium is borderline dilated. The right ventricle is normal in size and function. No hemodynamically significant valvular aortic stenosis. No aortic regurgitation is present. There is trace mitral regurgitation. There is trace tricuspid regurgitation. Right ventricular systolic pressure is normal. Trace pulmonic valvular regurgitation. There is no pericardial effusion Normal [facility] BMP with eGFRon 10-03-2023 AGE 67 years Normal [facility] Comment on above: Performed By: #### 2 [id number] #### [facility],[address] [place], [place] [id number] Anion gap [Moles/Vol] 18 mmol/L Normal 10 - 20 [facility] Comment on above: Performed By: #### 2 [id number] #### [facility],[address] [place] [address] [id number] BMP with eGFR Normal [facility] Comment on above: Result Comment: BASI C METABOLIC PANEL Performed By: #### 2 [id number] #### [facility],[address] [place] [id number] Calcium [Mass/Vol] 8.0 mg/dL Low 8.5 - 10.1 [facility] Comment on above: Performed By: #### 2 18077 #### [facility],[address] [place], [place] [address] [id number] Chloride [Moles/Vol] 115 mmol/L High 98 - 107 [facility] Comment on above: Performed By: #### 2 61143 #### [facility],[address] [place] [address] 52591 CO2 [Moles/Vol] 17.2 mmol/L Low 21.0 - 32.0 [facility] Comment on above: Result Comment: REPE ATED Performed By: #### 2 60324 #### [facility],[address] [place] [address] 71590 Creatinine [Mass/Vol] 1.44 mg/dL High 0.55 - 1.02 [facility] Comment on above: Performed By: #### 2 35114 #### [facility],[address] [place] [address] 35491 eGFR 36 ML/MINUTE Low 60 - 999 [facility] Comment on above: Performed By: #### 2 58296 #### [facility],[address] [place] [address] 13737 eGFR(AA) 44 ML/MINUTE Low 60 - 999 [facility] Comment on above: Result Comment: ACCO RDING TO THE NATIONAL KIDNEY DISEASE EDUCATION PROGRAM(NKDE), A NORMAL eGFR IS A VALUE GREATER THAN OR EQUAL TO 60 ML/MIN/1.73 SQ METERS. CHRONIC KIDNEY DISEASE: <60mL/MIN/1.73 SQ METERS KIDNEY FAILURE: <15mL/MIN/1.73 SQ METERS THIS TEST SHOULD ONLY BE USED FOR PATIENTS 18 YEARS OF AGE AND OLDER. Performed By: #### 2 04725 #### [facility],[address] [place] [address] 09554 Glucose [Mass/Vol] 125 mg/dL High 74 - 106 [facility] Comment on above: Performed By: #### 2 90314 #### [facility],[address] [place] [address] 85875 Potassium [Moles/Vol] 4.9 mmol/L Normal 3.5 - 5.1 [facility] Comment on above: Performed By: #### 2 18017 #### [facility],[address] [place] [address] Sodium [Moles/Vol] 145 mmol/L Normal 136 - 145 [facility] Comment on above: Performed By: #### 2 33239 #### [facility],[address] [place] [address] Urea nitrogen [Mass/Vol] 25 mg/dL High 7 - 18 [facility] Comment on above: Performed By: #### 2 38403 #### [facility],[address] [place] [address] CBC + DIFFon 10-03-2023 BANDS 3 % Normal 0 - 5 [facility] Comment on above: Performed By: #### 2 08932 #### [facility],[address] [place] [address] Baso # 0.01 x10EE3/UL Normal 0.00 - 0.10 [facility] Comment on above: Performed By: #### 2 48603 #### [facility],[address] [place] [address] Basophils/100 WBC (Bld) 0.2 % Normal 0.0 - 2.0 [facility] Comment on above: Performed By: #### 2 57719 #### [facility],[address] [place] [address] CBC + DIFF Normal [facility] Comment on above: Result Comment: CBC- COMPLETE BLOOD COUNT Performed By: #### 2 94571 #### [facility],[address] [place] [address] EO 3.0 % Normal 0.0 - 4.0 [facility] Comment on above: Performed By: #### 2 86901 #### [facility],[address] [place] [address] EO # 0.13 x10EE3/UL Normal 0.00 - 0.50 [facility] Comment on above: Performed By: #### 2 66929 #### [facility],[address] [place] [address] 82389 Eosinophils/100 WBC (Bld) 2.3 % Normal 0.0 - 7.0 [facility] Comment on above: Performed By: #### 2 26046 #### [facility],[address] [place] [address] Erythrocyte distribution width (RBC) [Ratio] 13.3 % Normal 12.0 - 15.6 [facility] Comment on above: Performed By: #### 2 53003 #### [facility],[address] [place] [address] Hematocrit (Bld) [Volume fraction] 30.9 % Low 34.0 - 46.0 [facility] Comment on above: Performed By: #### 2 88383 #### [facility],[address] [place] [address] 38197 Hemoglobin (Bld) [Mass/Vol] 10.1 g/dL Low 12.0 - 16.0 [facility] Comment on above: Performed By: #### 2 79417 #### [facility],[address] [place] [address] 72989 Lymph # 0.55 x10EE3/UL Low 0.80 - 2.80 [facility] Comment on above: Performed By: #### 2 67497 #### [facility],[address] [place] [address] 91728 Lymphocytes/100 WBC (Bld) 9.5 % Low 20.0 - 45.0 [facility] Comment on above: Performed By: #### 2 52919 #### [facility],[address] [place] [address] 69038 Lymphocytes/100 WBC (Bld) 12 % Low 20 - 40 [facility] Comment on above: Performed By: #### 2 44776 #### [facility],[address] [place] [address] MANUAL DIFF SEE BELOW Normal [facility] Comment on above: Performed By: #### 2 56058 #### [facility],[address] [place] [address] MCH (RBC) [Entitic mass] 31 pg Normal 27 - 33 [facility] Comment on above: Performed By: #### 2 46789 #### [facility],[address] [place] [address] MCHC 33 X10 3 Normal 32 - 36 [facility] Comment on above: Performed By: #### 2 15897 #### [facility],[address] [place] [address] MCV (RBC) [Entitic vol] 95 fL Normal 80 - 99 [facility] Comment on above: Performed By: #### 2 82989 #### [facility],[address] [place] [address] [place] # 0.57 x10EE3/UL Normal 0.20 - 1.00 [facility] Comment on above: Performed By: #### 2 94440 #### [facility],[address] [place] [address] 19259 MONOS 6 % Normal 0 - 8 [facility] Comment on above: Performed By: #### 2 77734 #### [facility],[address] [place] [address] 15902 MONOS % 9.8 % Normal 0.0 - 10.0 [facility] Comment on above: Performed By: #### 2 82319 #### [facility],[address] [place] [address] 79966 Morphology Yuri (Bld) [Interp] REVIEWED Normal [facility] Comment on above: Performed By: #### 2 44579 #### [facility],[address] [place] [address] 53972 Neut # 4.54 x10EE3/UL Normal 1.50 - 7.10 [facility] Comment on above: Performed By: #### 2 17921 #### [facility],[address] [place] [address] 07860 Neutrophils/100 WBC (Bld) 78.2 % High 46.0 - 76.0 [facility] Comment on above: Performed By: #### 2 68778 #### [facility],[address] [place] [address] 78307 PLATELET 155 x10EE3/UL Normal 150 - 450 [facility] Comment on above: Performed By: #### 2 29675 #### [facility],[address] [place] [address] 31823 Platelet mean volume (Bld) [Entitic vol] 9.3 fL Normal 6.6 - 10.5 [facility] Comment on above: Result Comment: AUTO MATED DIFFERENTIAL Performed By: #### 2 89375 #### [facility],[address] [place] [address] 09880 RBC 3.25 x 10EE6/UL Low 4.10 - 5.30 [facility] Comment on above: Performed By: #### 2 42134 #### [facility],[address] [place] [address] 82965 SEGS 76 % High 50 - 70 [facility] Comment on above: Performed By: #### 2 35187 #### [facility],[address] [place] [address] 46429 WBC 5.8 x 10EE3/UL Normal 4.5 - 10.8 [facility] Comment on above: Performed By: #### 2 38625 #### [facility],[address] [place] [address] 73167 URINE CULTURE [CCL]on 2023 Bacteria identified Cx Nom (U) URCUL See Results Below See Below CULTURE, URINE ESCHERICHIA COLI >=100,000 CFU/ml Escherichia coli ORGANISM: ESCHERICHIA COLI ANTIBIOTIC BETHANY DILUTN BETHANY INTERP Ampicillin >=32 Resistant Cefazolin <=4 Susceptible For uncomplicated urinary tract infections, cefazolin results can be used to pre Ceftriaxone <=1 Susceptible Cefepime <=1 Susceptible Ertapenem <=0.5 Susceptible Meropenem <=0.25 Susceptible Ampicillin/Sulbact 16 Intermediate Piperacillin/Tazobac <=4 Susceptible Gentamicin <=1 Susceptible Tobramycin <=1 Susceptible Trimeth sulfameth <=20 Susceptible Ciprofloxacin <=0.25 Susceptible Nitrofurantoin 32 Susceptible This test was developed and its performance characteristics determined by the [facility] [place] ([facility]). It has not been cleared or approved by the FDA. [facility] is regulated under CLIA as qualified to perform high-complexity testing. This test is used for clinical purposes. It should not be regarded as investigational or for research. SOURCE: URINE VOIDED [facility] [address] [place] [address] Antonio Chatman III, M.D. [id number] SEND TO IC YES Normal [facility] Comment on above: Performed By: #### 2 88515 #### [place] [address] BMP with eGFRon 10-01-2023 AGE 67 years Normal [facility] Comment on above: Performed By: #### 2 54029 #### [place] [address] Anion gap [Moles/Vol] 20 mmol/L Normal 10 - 20 [facility] Comment on above: Performed By: #### 2 85137 #### [place] [address] BMP with eGFR Normal [facility] Comment on above: Result Comment: BASI C METABOLIC PANEL Performed By: #### 2 31209 #### [place] [address] Calcium [Mass/Vol] 7.9 mg/dL Low 8.5 - 10.1 [facility] Comment on above: Performed By: #### 2 79634 #### [address] [address] Chloride [Moles/Vol] 107 mmol/L Normal 98 - 107 [facility] Comment on above: Performed By: #### 2 11774 #### [facility],[address] [place], [place] [id number] CO2 [Moles/Vol] 13.1 mmol/L Low 21.0 - 32.0 [facility] Comment on above: Performed By: #### 2 08167 #### [place] [id number] Creatinine [Mass/Vol] 1.92 mg/dL High 0.55 - 1.02 [facility] Comment on above: Performed By: #### 2 65311 #### [address] [address] eGFR 26 ML/MINUTE Low 60 - 999 [facility] Comment on above: Performed By: #### 2 71093 #### [facility],[address] [place] [address] 88854 eGFR(AA) 32 ML/MINUTE Low 60 - 999 [facility] Comment on above: Result Comment: ACCO RDING TO THE NATIONAL KIDNEY DISEASE EDUCATION PROGRAM(NKDE), A NORMAL eGFR IS A VALUE GREATER THAN OR EQUAL TO 60 ML/MIN/1.73 SQ METERS. CHRONIC KIDNEY DISEASE: <60mL/MIN/1.73 SQ METERS KIDNEY FAILURE: <15mL/MIN/1.73 SQ METERS THIS TEST SHOULD ONLY BE USED FOR PATIENTS 18 YEARS OF AGE AND OLDER. Performed By: #### 2 89384 #### [facility],[address] [place], [place] [id number] Glucose [Mass/Vol] 148 mg/dL High 74 - 106 [facility] Comment on above: Performed By: #### 2 06691 #### [address] [address] Potassium [Moles/Vol] 4.6 mmol/L Normal 3.5 - 5.1 [facility] Comment on above: Performed By: #### 2 72456 #### [facility],[address] [place] [address] Sodium [Moles/Vol] 135 mmol/L Low 136 - 145 [facility] Comment on above: Performed By: #### 2 28469 #### [facility],[address] [place] [address] Urea nitrogen [Mass/Vol] 47 mg/dL High 7 - 18 [facility] Comment on above: Performed By: #### 2 08417 #### [facility],[address] [place] [address] CBC + DIFFon 10-01-2023 Baso # 0.02 x10EE3/UL Normal 0.00 - 0.10 [facility] Comment on above: Performed By: #### 2 23618 #### [facility],[address] [place] [address] 94576 Basophils/100 WBC (Bld) 0.2 % Normal 0.0 - 2.0 [facility] Comment on above: Performed By: #### 2 75001 #### [facility],[address] [place] [address] 20132 CBC + DIFF Normal [facility] Comment on above: Result Comment: CBC- COMPLETE BLOOD COUNT Performed By: #### 2 10698 #### [facility],[address] [place] [address] 64347 EO # 0.11 x10EE3/UL Normal 0.00 - 0.50 [facility] Comment on above: Performed By: #### 2 85794 #### [facility],[address] [place] [address] 50383 Eosinophils/100 WBC (Bld) 1.1 % Normal 0.0 - 7.0 [facility] Comment on above: Performed By: #### 2 39093 #### [facility],[address] [place], [place] [id number] Erythrocyte distribution width (RBC) [Ratio] 13.8 % Normal 12.0 - 15.6 [facility] Comment on above: Performed By: #### 2 08081 #### [facility],[address] [place] [address] Hematocrit (Bld) [Volume fraction] 36.4 % Normal 34.0 - 46.0 [facility] Comment on above: Performed By: #### 2 29829 #### [facility],[address] [place] [address] Hemoglobin (Bld) [Mass/Vol] 11.9 g/dL Low 12.0 - 16.0 [facility] Comment on above: Performed By: #### 2 86104 #### [facility],[address] [place] [address] Lymph # 0.65 x10EE3/UL Low 0.80 - 2.80 [facility] Comment on above: Performed By: #### 2 60553 #### [facility],[address] [place], [place] [phone] Lymphocytes/100 WBC (Bld) 6.5 % Low 20.0 - 45.0 [facility] Comment on above: Performed By: #### 2 53902 #### [facility],[address] [place], [place] [phone] MANUAL DIFF N/A Normal [facility] Comment on above: Performed By: #### 2 48851 #### [facility],[address] [place] [address] 69428 MCH (RBC) [Entitic mass] 30 pg Normal 27 - 33 [facility] Comment on above: Performed By: #### 2 19629 #### [facility],[address] [place] [address] 91034 MCHC 33 X10 3 Normal 32 - 36 [facility] Comment on above: Performed By: #### 2 68650 #### [facility],[address] [place] [address] 25714 MCV (RBC) [Entitic vol] 92 fL Normal 80 - 99 [facility] Comment on above: Performed By: #### 2 69001 #### [facility],[address] [place] [address] 18857 [place] # 0.58 x10EE3/UL Normal 0.20 - 1.00 [facility] Comment on above: Performed By: #### 2 59129 #### [facility],[address] [place] [address] 43848 MONOS % 5.8 % Normal 0.0 - 10.0 [facility] Comment on above: Performed By: #### 2 50396 #### [facility],[address] [place] [address] 13551 Morphology Yuri (Bld) [Interp] N/A Normal [facility] Comment on above: Performed By: #### 2 18992 #### [facility],[address] [place] [address] 00182 Neut # 8.73 x10EE3/UL High 1.50 - 7.10 [facility] Comment on above: Performed By: #### 2 38185 #### [facility],[address] [place] [address] 38405 Neutrophils/100 WBC (Bld) 86.5 % High 46.0 - 76.0 [facility] Comment on above: Performed By: #### 2 70130 #### [facility],[address] [place] [address] 00061 PLATELET 167 x10EE3/UL Normal 150 - 450 [facility] Comment on above: Performed By: #### 2 33159 #### [facility],[address] [place] [address] 80487 Platelet mean volume (Bld) [Entitic vol] 9.5 fL Normal 6.6 - 10.5 [facility] Comment on above: Result Comment: AUTO MATED DIFFERENTIAL Performed By: #### 2 48697 #### [facility],[address] [place] [address] 61948 RBC 3.94 x 10EE6/UL Low 4.10 - 5.30 [facility] Comment on above: Performed By: #### 2 99366 #### [facility],[address] [place] [address] 82787 WBC 10.1 x 10EE3/UL Normal 4.5 - 10.8 [facility] Comment on above: Performed By: #### 2 61040 #### [facility],[address] [place] [address] 45415 BMP with eGFRon 09-30-2023 AGE 67 years Normal [facility] Comment on above: Performed By: #### 2 69825 #### [facility],[address] [place] [address] 08818 Anion gap [Moles/Vol] 20 mmol/L Normal 10 - 20 [facility] Comment on above: Performed By: #### 2 64205 #### [facility],[address] [place] [address] 96266 BMP with eGFR Normal [facility] Comment on above: Result Comment: BASI C METABOLIC PANEL Performed By: #### 2 33398 #### [facility],[address] [place] [address] 60268 Calcium [Mass/Vol] 8.2 mg/dL Low 8.5 - 10.1 [facility] Comment on above: Performed By: #### 2 62321 #### [facility],[address] [place] [address] 58551 Chloride [Moles/Vol] 107 mmol/L Normal 98 - 107 [facility] Comment on above: Performed By: #### 2 43884 #### [facility],[address] [place] [address] 32967 CO2 [Moles/Vol] 16.1 mmol/L Low 21.0 - 32.0 [facility] Comment on above: Performed By: #### 2 83139 #### [facility],[address] [place] [address] 42273 Creatinine [Mass/Vol] 2.47 mg/dL High 0.55 - 1.02 [facility] Comment on above: Performed By: #### 2 35272 #### [facility],[address] [place] [address] 25281 eGFR 20 ML/MINUTE Low 60 - 999 [facility] Comment on above: Performed By: #### 2 61867 #### [facility],[address] [place] [address] 25023 eGFR(AA) 24 ML/MINUTE Low 60 - 999 [facility] Comment on above: Result Comment: ACCO RDING TO THE NATIONAL KIDNEY DISEASE EDUCATION PROGRAM(NKDE), A NORMAL eGFR IS A VALUE GREATER THAN OR EQUAL TO 60 ML/MIN/1.73 SQ METERS. CHRONIC KIDNEY DISEASE: <60mL/MIN/1.73 SQ METERS KIDNEY FAILURE: <15mL/MIN/1.73 SQ METERS THIS TEST SHOULD ONLY BE USED FOR PATIENTS 18 YEARS OF AGE AND OLDER. Performed By: #### 2 22888 #### [facility],[address] [place] [address] 50525 Glucose [Mass/Vol] 140 mg/dL High 74 - 106 [facility] Comment on above: Performed By: #### 2 68984 #### [facility],[address] [place] [address] 65827 Potassium [Moles/Vol] 4.6 mmol/L Normal 3.5 - 5.1 [facility] Comment on above: Performed By: #### 2 65030 #### [facility],[address] [place] [address] 15893 Sodium [Moles/Vol] 138 mmol/L Normal 136 - 145 [facility] Comment on above: Performed By: #### 2 93223 #### [facility],[address] [place] [address] 75771 Urea nitrogen [Mass/Vol] 57 mg/dL High 7 - 18 [facility] Comment on above: Performed By: #### 2 89745 #### [facility],[address] [place] [address] CBC + DIFFon 09-30-2023 Baso # 0.01 x10EE3/UL Normal 0.00 - 0.10 [facility] Comment on above: Performed By: #### 2 60362 #### [facility],[address] [place], [place] [id number] Basophils/100 WBC (Bld) 0.1 % Normal 0.0 - 2.0 [facility] Comment on above: Performed By: #### 2 84359 #### [facility],[address] [place] [address] CBC + DIFF Normal [facility] Comment on above: Result Comment: CBC- COMPLETE BLOOD COUNT Performed By: #### 2 11068 #### [facility],[address] [place] [address] EO # 0.11 x10EE3/UL Normal 0.00 - 0.50 [facility] Comment on above: Performed By: #### 2 94534 #### [facility],[address] [place], [place] [phone] Eosinophils/100 WBC (Bld) 0.7 % Normal 0.0 - 7.0 [facility] Comment on above: Performed By: #### 2 66874 #### [facility],[address] [place], [place] [id number] Erythrocyte distribution width (RBC) [Ratio] 13.6 % Normal 12.0 - 15.6 [facility] Comment on above: Performed By: #### 2 48955 #### [facility],[address] [place], [place] [id number] Hematocrit (Bld) [Volume fraction] 39.9 % Normal 34.0 - 46.0 [facility] Comment on above: Performed By: #### 2 56447 #### [facility],[address] [place] [address] 79214 Hemoglobin (Bld) [Mass/Vol] 13.4 g/dL Normal 12.0 - 16.0 [facility] Comment on above: Performed By: #### 2 46291 #### [facility],[address] [place] [address] 41131 Lymph # 0.54 x10EE3/UL Low 0.80 - 2.80 [facility] Comment on above: Performed By: #### 2 12557 #### [facility],[address] [place], [place] [id number] Lymphocytes/100 WBC (Bld) 3.6 % Low 20.0 - 45.0 [facility] Comment on above: Performed By: #### 2 17628 #### [facility],[address] [place], [place] [id number] MANUAL DIFF N/A Normal [facility] Comment on above: Performed By: #### 2 92690 #### [facility],[address] [place] [address] 56190 MCH (RBC) [Entitic mass] 31 pg Normal 27 - 33 [facility] Comment on above: Performed By: #### 2 77704 #### [facility],[address] [place] [address] 23386 MCHC 34 X10 3 Normal 32 - 36 [facility] Comment on above: Performed By: #### 2 84399 #### [facility],[address] [place] [address] 96770 MCV (RBC) [Entitic vol] 94 fL Normal 80 - 99 [facility] Comment on above: Performed By: #### 2 22827 #### [facility],[address] [place] [address] 88168 [place] # 0.51 x10EE3/UL Normal 0.20 - 1.00 [facility] Comment on above: Performed By: #### 2 85659 #### [facility],[address] [place] [address] 98940 MONOS % 3.5 % Normal 0.0 - 10.0 [facility] Comment on above: Performed By: #### 2 78034 #### [facility],[address] [place] [address] 57464 Morphology Yuri (Bld) [Interp] N/A Normal [facility] Comment on above: Performed By: #### 2 71352 #### [facility],[address] [place] [address] 35733 Neut # 13.70 x10EE3/UL High 1.50 - 7.10 [facility] Comment on above: Performed By: #### 2 85139 #### [facility],[address] [place] [address] 62515 Neutrophils/100 WBC (Bld) 92.1 % High 46.0 - 76.0 [facility] Comment on above: Performed By: #### 2 43862 #### [facility],[address] [place] [address] 89444 PLATELET 187 x10EE3/UL Normal 150 - 450 [facility] Comment on above: Performed By: #### 2 93457 #### [facility],[address] [place] [address] 95846 Platelet mean volume (Bld) [Entitic vol] 9.5 fL Normal 6.6 - 10.5 [facility] Comment on above: Result Comment: AUTO MATED DIFFERENTIAL Performed By: #### 2 10317 #### [facility],[address] [place] [address] 10969 RBC 4.27 x 10EE6/UL Normal 4.10 - 5.30 [facility] Comment on above: Performed By: #### 2 00283 #### [facility],[address] [place] [address] 96485 WBC 14.9 x 10EE3/UL High 4.5 - 10.8 [facility] Comment on above: Performed By: #### 2 99369 #### [facility],[address] [place] [address] 81001 URINALYSISon 09-30-2023 Amorphous NONE Normal [facility] Comment on above: Performed By: #### 2 73780 #### [facility],[address] [place] [address],[facility] [address] Bacteria 4+ Normal [facility] Comment on above: Performed By: #### 2 52159 #### [facility],[address] [place] [address] 17427 Bilirubin Ql (U) Negative Normal NORMAL: NEGATIVE [facility] Comment on above: Performed By: #### 2 11488 #### [facility],[address] [place], [place] [id number] Casts NONE Normal [facility] Comment on above: Performed By: #### 2 46350 #### [facility],[address] [place], [place] [id number] Clarity (U) bloody Normal NORMAL: CLEAR [facility] Comment on above: Performed By: #### 2 55339 #### [facility],[address] [place] [address] 99603 Color (U) red Normal NORMAL: YELLOW [facility] Comment on above: Performed By: #### 2 21100 #### [facility],[address] [place] [address] 15591 Crystals LM Nom (Urine sed) NONE Normal [facility] Comment on above: Performed By: #### 2 07036 #### [facility],[address] [place] [address] 38040 Epi Cells FEW Normal [facility] Comment on above: Performed By: #### 2 76937 #### [facility],[address] [place] [address] 22846 Glucose Ql (U) NORM Normal NORMAL: NORMAL [facility] Comment on above: Performed By: #### 2 98122 #### [facility],[address] [place] [address] 09614 Hemoglobin Ql (U) 250 Abnormal NORMAL: NEGATIVE [facility] Comment on above: Performed By: #### 2 58547 #### [facility],[address] [place] [address] 73836 Ketone 5 Abnormal NORMAL: NEGATIVE [facility] Comment on above: Performed By: #### 2 68099 #### [facility],[address] [place] [address] 47636 Leukocytes 100 Abnormal NORMAL: NEGATIVE [facility] Comment on above: Performed By: #### 2 47489 #### [facility],[address] [place] [address] 70126 Mucous NONE Normal [facility] Comment on above: Performed By: #### 2 37893 #### [facility],[address] [place] [address] 08190 Nitrite Ql (U) Negative Normal NORMAL: NEGATIVE [facility] Comment on above: Performed By: #### 2 17459 #### [facility],[address] [place] [address] 11423 pH (U) 6.5 [pH] Normal NORMAL: 5.0-8.0 [facility] Comment on above: Performed By: #### 2 27713 #### [facility],[address] [place] [address] 60857 Protein Ql (U) 500 Abnormal NORMAL: NEGATIVE [facility] Comment on above: Performed By: #### 2 98822 #### [facility],[address] [place] [address] 85410 Rbc TNTC Normal 0-3/hpf [facility] Comment on above: Performed By: #### 2 52759 #### [facility],[address] [place] [address] 55976 Sp [place] 1.010 Normal NORMAL: 1.010-1.030 [facility] Comment on above: Performed By: #### 2 38680 #### [facility],[address] [place] [address] Specimen Type Void Normal [facility] Comment on above: Performed By: #### 2 81479 #### [facility],[address] [place] [address] Urinalysis dipstick W Reflex Microscopic panel (U) SEE BELOW Normal [facility] Comment on above: Result Comment: MICR OSCOPIC Performed By: #### 2 53516 #### [facility],[address] [place] [address] Urobilinog NORM Normal NORMAL: NORMAL [facility] Comment on above: Performed By: #### 2 63371 #### [facility],[address] [place] [address] WBC (U) [#/Vol] /uL Normal 0-5/hpf [facility] Comment on above: Performed By: #### 2 49456 #### [facility],[address] [place] [address] Yeast NONE Normal [facility] Comment on above: Performed By: #### 2 89976 #### [facility],[address] [place] [address] CBC + DIFFon 09-29-2023 Baso # 0.02 x10EE3/UL Normal 0.00 - 0.10 [facility] Comment on above: Performed By: #### 2 55305 #### [facility],[address] [place] [address] Basophils/100 WBC (Bld) 0.1 % Normal 0.0 - 2.0 [facility] Comment on above: Performed By: #### 2 44116 #### [facility],[address] [place] [address] CBC + DIFF Normal [facility] Comment on above: Result Comment: CBC- COMPLETE BLOOD COUNT Performed By: #### 2 78442 #### [facility],[address] [place] [address] 74645 EO # 0.10 x10EE3/UL Normal 0.00 - 0.50 [facility] Comment on above: Performed By: #### 2 00852 #### [facility],[address] [place] [address] 69200 Eosinophils/100 WBC (Bld) 0.5 % Normal 0.0 - 7.0 [facility] Comment on above: Performed By: #### 2 27158 #### [facility],[address] [place], [place] [id number] Erythrocyte distribution width (RBC) [Ratio] 13.3 % Normal 12.0 - 15.6 [facility] Comment on above: Performed By: #### 2 46382 #### [facility],[address] [place] [address] Hematocrit (Bld) [Volume fraction] 43.8 % Normal 34.0 - 46.0 [facility] Comment on above: Performed By: #### 2 53669 #### [facility],[address] [place], [place] [phone] Hemoglobin (Bld) [Mass/Vol] 14.7 g/dL Normal 12.0 - 16.0 [facility] Comment on above: Performed By: #### 2 04378 #### [facility],[address] [place] [address] 20016 Lymph # 0.40 x10EE3/UL Low 0.80 - 2.80 [facility] Comment on above: Performed By: #### 2 57468 #### [facility],[address] [place] [address] 25521 Lymphocytes/100 WBC (Bld) 2.0 % Low 20.0 - 45.0 [facility] Comment on above: Performed By: #### 2 76131 #### [facility],[address] [place] [address] 49347 MANUAL DIFF REVIEWED Normal [facility] Comment on above: Performed By: #### 2 45779 #### [facility],[address] [place] [address] 72302 MCH (RBC) [Entitic mass] 31 pg Normal 27 - 33 [facility] Comment on above: Performed By: #### 2 25773 #### [facility],[address] [place] [address] 11901 MCHC 34 X10 3 Normal 32 - 36 [facility] Comment on above: Performed By: #### 2 65182 #### [facility],[address] [place] [address] 09644 MCV (RBC) [Entitic vol] 93 fL Normal 80 - 99 [facility] Comment on above: Performed By: #### 2 86371 #### [facility],[address] [place] [address] [place] # 1.42 x10EE3/UL High 0.20 - 1.00 [facility] Comment on above: Performed By: #### 2 45319 #### [facility],[address] [place] [address] 04976 MONOS % 7.1 % Normal 0.0 - 10.0 [facility] Comment on above: Performed By: #### 2 69241 #### [facility],[address] [place] [address] 35391 Morphology Yuri (Bld) [Interp] N/A Normal [facility] Comment on above: Performed By: #### 2 56182 #### [facility],[address] [place] [address] 16432 Neut # 18.04 x10EE3/UL High 1.50 - 7.10 [facility] Comment on above: Performed By: #### 2 11142 #### [facility],[address] [place] [address] 24083 Neutrophils/100 WBC (Bld) 90.3 % High 46.0 - 76.0 [facility] Comment on above: Performed By: #### 2 03592 #### [facility],[address] [place] [address] 08746 PLATELET 198 x10EE3/UL Normal 150 - 450 [facility] Comment on above: Performed By: #### 2 58530 #### [facility],[address] [place] [address] 24547 Platelet mean volume (Bld) [Entitic vol] 9.2 fL Normal 6.6 - 10.5 [facility] Comment on above: Result Comment: AUTO MATED DIFFERENTIAL Performed By: #### 2 01782 #### [facility],[address] [place] [address] 36544 RBC 4.70 x 10EE6/UL Normal 4.10 - 5.30 [facility] Comment on above: Performed By: #### 2 17936 #### [facility],[address] [place] [address] 15382 WBC 20.0 x 10EE3/UL High 4.5 - 10.8 [facility] Comment on above: Performed By: #### 2 58679 #### [facility],[address] [place], [place] [phone] CMP with eGFRon 09-29-2023 AGE 67 years Normal [facility] Comment on above: Performed By: #### 2 78386 #### [facility],[address] [place] [address] 24556 Albumin [Mass/Vol] 3.1 g/dL Low 3.4 - 5.0 [facility] Comment on above: Performed By: #### 2 02135 #### [facility],[address] [place] [address] 68495 Albumin/Globulin [Mass ratio] 0.7 {ratio} Low 0.9 - 1.6 [facility] Comment on above: Performed By: #### 2 77322 #### [facility],[address] [place], [place] [address] ALK PHOS 93 U/L Normal 46 - 116 [facility] Comment on above: Performed By: #### 2 25761 #### [facility],[address] [place] [address] 87447 ALT [Catalytic activity/Vol] 17 U/L Normal 16 - 63 [facility] Comment on above: Performed By: #### 2 16149 #### [facility],[address] [place] [address] 06890 Anion gap [Moles/Vol] 25 mmol/L High 10 - 20 [facility] Comment on above: Performed By: #### 2 01313 #### [facility],[address] [place] [address] 09951 AST [Catalytic activity/Vol] 16 U/L Normal 13 - 39 [facility] Comment on above: Performed By: #### 2 99555 #### [facility],[address] [place] [address] 28022 B/C RATIO 21 ratio Normal 0 - 30 [facility] Comment on above: Performed By: #### 2 67047 #### [facility],[address] [place] [address] 69467 Bilirubin [Mass/Vol] 0.9 mg/dL Normal 0.2 - 1.0 [facility] Comment on above: Performed By: #### 2 95726 #### [facility],[address] [place] [address] 89676 Calcium [Mass/Vol] 9.0 mg/dL Normal 8.5 - 10.1 [facility] Comment on above: Performed By: #### 2 85799 #### [facility],[address] [place] [address] 52294 Chloride [Moles/Vol] 106 mmol/L Normal 98 - 107 [facility] Comment on above: Performed By: #### 2 93858 #### [facility],[address] [place] [address] 32748 CMP with eGFR Normal [facility] Comment on above: Result Comment: COMP REHENSIVE METABOLIC PANEL Performed By: #### 2 78423 #### [facility],[address] [place] [address] 68758 CO2 [Moles/Vol] 13.6 mmol/L Low 21.0 - 32.0 [facility] Comment on above: Performed By: #### 2 99412 #### [facility],[address] [place], [place] [id number] Creatinine [Mass/Vol] 2.59 mg/dL High 0.55 - 1.02 [facility] Comment on above: Performed By: #### 2 78607 #### [facility],[address] [place] [address] eGFR 18 ML/MINUTE Low 60 - 999 [facility] Comment on above: Performed By: #### 2 03055 #### [place] [address] eGFR(AA) 22 ML/MINUTE Low 60 - 999 [facility] Comment on above: Result Comment: ACCO RDING TO THE NATIONAL KIDNEY DISEASE EDUCATION PROGRAM(NKDE), A NORMAL eGFR IS A VALUE GREATER THAN OR EQUAL TO 60 ML/MIN/1.73 SQ METERS. CHRONIC KIDNEY DISEASE: <60mL/MIN/1.73 SQ METERS KIDNEY FAILURE: <15mL/MIN/1.73 SQ METERS THIS TEST SHOULD ONLY BE USED FOR PATIENTS 18 YEARS OF AGE AND OLDER. Performed By: #### 2 81711 #### [facility],[address] [place] [address] 23586 Globulin (S) [Mass/Vol] 4.6 g/dL High 1.5 - 3.8 [facility] Comment on above: Performed By: #### 2 46428 #### [address] [address] Glucose [Mass/Vol] 228 mg/dL High 74 - 106 [facility] Comment on above: Performed By: #### 2 48949 #### [place] [id number] Potassium [Moles/Vol] 4.6 mmol/L Normal 3.5 - 5.1 [facility] Comment on above: Performed By: #### 2 04583 #### [facility],[address] [place] [address] 08424 Protein [Mass/Vol] 7.7 g/dL Normal 6.4 - 8.2 [facility] Comment on above: Performed By: #### 2 87111 #### [facility],[address] [place], [place] [phone] Sodium [Moles/Vol] 140 mmol/L Normal 136 - 145 [facility] Comment on above: Performed By: #### 2 50779 #### [facility],[address] [place] [address] Urea nitrogen [Mass/Vol] 55 mg/dL High 7 - 18 [facility] Comment on above: Performed By: #### 2 90909 #### [facility],[address] [place], [place] [id number] CT CHEST/ABD/PELVIS C-on CT CHEST/ABD/PELVIS - [place] [address] Patient: FELIPA LIMA Phone#: : [phone] Age: 67 Gender: F Pt. Type: ER Account: [id number] Location: 052 Ordering: DR. HONORIO RITTER Exam Date: 09/29/2023/21:26 Family Phys: KANDACE KATZ Charge Code: 373104 Physician: Barren Order #: [id number] Dose#: 13.9 mGy PROCEDURE: CT CHEST/ABD/PELVIS WO COMPARISON: [facility], CT, KUB W/O CON, 07/05/2022, 21:53. [facility], CT, CHEST/ABDOMEN/PELVIS W/O CON, 09/13/2018, 23:35. INDICATIONS: Pain. TECHNIQUE: CT images were obtained without the administration of intravenous contrast material. All CT scans at this facility use dose modulation, iterative reconstruction, and/or weight based dosing when appropriate to reduce radiation dose to as low as reasonably achievable. IV CONTRAST: No IV contrast used,0ml TOTAL DOSE: 13.9 CTDIvol(mGy) FINDINGS: Evaluation of the solid organs and soft tissues is limited in the absence of intravenous contrast. LUNGS: Normal. No visible pulmonary disease. VASCULATURE: Unremarkable in size ELLYN: Limited evaluation for adenopathy in the absence of contrast. MEDIASTINUM: Normal. No mass or adenopathy. CARDIAC: Coronary artery calcifications. PLEURA: Normal. No mass or effusion. CHEST WALL: Normal. No mass or axillary adenopathy. LIVER: Liver is enlarged measuring 19.7 x 23.3 x 11.1 cm BILIARY: Gallbladder is present PANCREAS: Pancreatic atrophy SPLEEN: Spleen is unremarkable in contour. It measures 13.3 x 7.0 x 9.6 cm, for a splenic index of 134, consistent with splenomegaly. KIDNEYS: There is left perinephric stranding. There is fullness of the left renal pelvis and thickening of the pelvic wall, series 2, image 80. No left hydronephrosis or hydroureter. No obstructing stone. There are calcifications in the right lower pole largest calcification measures 1.1 x 1.3 cm. There is right renal parenchymal thinning. There is thickening Continued Report - Page 2 of 2 Patient: FELIPA LIMA Phone#: : [phone] Age: 67 Gender: F Pt. Type: ER Account: [id number] Location: [facility] Ordering: DR. HONORIO RITTER Exam Date: 09/29/2023/21:26 Family Phys: KANDACEDANIAL KATZ Charge Code: 618797 Physician: Barren Order #: [id number] Dose#: 13.9 mGy and stranding surrounding the renal pelvis, proximal ureter and distal ureter, series 5, image [id number] and series 2 image 106. There is fullness of the right ureter without an obstructing stone. ADRENALS: Normal. No mass or enlargement. AORTA/VASCULAR: No aortic aneurysm. Atherosclerotic calcifications of the aorta and branch vessels. RETROPERITONEUM: Limited evaluation for adenopathy in the absence of contrast BOWEL/MESENTERY: No bowel obstruction or dilatation. No significant stool burden. Diverticulosis of the descending and sigmoid colon. There are diverticula scattered throughout the transverse colon as well. Appendix is unremarkable in size. ABDOMINAL WALL: Ventral right abdominal wall defect containing fat the defect measures 0.8 x 1.7 cm. Fat containing right inguinal hernia. URINARY BLADDER: Urinary bladder is decompressed. PELVIC NODES: Normal. No adenopathy. PELVIC ORGANS: Uterus is absent. BONES: Left 10th nonunited subacute rib fracture with healing callus formation. Disc height loss at L2-3 and L3-4 with vacuum disc phenomena. L3-4 endplate sclerosis. OTHER: Left thyroid nodule measuring 1.9 x 1.2 cm. CONCLUSION: 1. Left perinephric stranding and thickening of the renal pelvis. Multifocal right renal pelvis and ureter stranding. Findings highly suggestive of bilateral ascending infections and left pyelonephritis. Given the absence of contrast differential also includes recently passed stone or ureteritis. 2. Hepatomegaly 3. Splenomegaly 4. Left thyroid nodule, consider follow-up thyroid ultrasound for further characterization. Dictated by: Caitie Ochoa MD on 09/29/2023 at 21:41 Approved by: Caitie Ochoa MD on 09/29/2023 at 22:01 Normal [facility] CULTURE BLOOD [DOMINIQUE]on Microscopic examination of blood, culture CULTURE BLOOD [DOMINIQUE] _BLOOD CULTURE_ [facility]ED REPORT 10/06/23.0900.DNP.COMPLETE Normal [facility] Comment on above: Performed By: #### 2 60211 #### [facility],[address] [place] [address] Microscopic examination of blood, culture CULTURE BLOOD [DOMINIQUE] _BLOOD CULTURE_ [facility] FOR SCANNED REPORT 10/06/23.0859.DNP.COMPLETE Normal [facility] Comment on above: Performed By: #### 2 03117 #### [facility],[address] [place], [place] [id number] LACTATEon 09-29-2023 Lactate [Moles/Vol] 2.0 mmol/L Normal 0.4 - 2.0 [facility] Comment on above: Performed By: #### 2 03357 #### [facility],[address] [place] [address] 16248 TROPONIN I, HIGH SENSITIVITY on 09-29-2023 HS TROPONIN 28.2 pg/mL Normal 0.0 - 51.4 [facility] Comment on above: Performed By: #### 2 90065 #### [facility],[address] [place] [address] 70478 HS TROPONIN 11.1 pg/mL Normal 0.0 - 51.4 [facility] Comment on above: Performed By: #### 2 74588 #### [facility],[address] [place] [address] 12511 PTH, INTACT [CCL]on 09-11-19 24 PTH, Intact 88 pg/mL High 15-65 [facility] Comment on above: Result Comment: [facility] [address] [place] [address] Antonio Chatman III, M.D. [id number] Performed By: #### 2 76694 #### [facility],[address] [place] [address] 74740 BMP with eGFRon 09-09-2023 AGE 67 years Normal [facility] Comment on above: Performed By: #### 2 08221 #### [facility],[address] [place] [address] 28042 Anion gap [Moles/Vol] 19 mmol/L Normal 10 - 20 [facility] Comment on above: Performed By: #### 2 06672 #### [facility],[address] [place] [address] 09278 BMP with eGFR Normal [facility] Comment on above: Result Comment: BASI C METABOLIC PANEL Performed By: #### 2 00885 #### [facility],[address] [place] [address] 34746 Calcium [Mass/Vol] 8.8 mg/dL Normal 8.5 - 10.1 [facility] Comment on above: Performed By: #### 2 31368 #### [facility],[address] [place], [place] [id number] Chloride [Moles/Vol] 105 mmol/L Normal 98 - 107 [facility] Comment on above: Performed By: #### 2 64321 #### [facility],[address] [place] [address] CO2 [Moles/Vol] 19.6 mmol/L Low 21.0 - 32.0 [facility] Comment on above: Performed By: #### 2 59428 #### [place] [id number] Creatinine [Mass/Vol] 1.56 mg/dL High 0.55 - 1.02 [facility] Comment on above: Performed By: #### 2 89909 #### [facility],[address] [place], [place] [id number] eGFR 33 ML/MINUTE Low 60 - 999 [facility] Comment on above: Performed By: #### 2 12304 #### [place] [id number] eGFR(AA) 40 ML/MINUTE Low 60 - 999 [facility] Comment on above: Result Comment: ACCO RDING TO THE NATIONAL KIDNEY DISEASE EDUCATION PROGRAM(NKDE), A NORMAL eGFR IS A VALUE GREATER THAN OR EQUAL TO 60 ML/MIN/1.73 SQ METERS. CHRONIC KIDNEY DISEASE: <60mL/MIN/1.73 SQ METERS KIDNEY FAILURE: <15mL/MIN/1.73 SQ METERS THIS TEST SHOULD ONLY BE USED FOR PATIENTS 18 YEARS OF AGE AND OLDER. Performed By: #### 2 69100 #### [facility],[address] [place], [place] [id number] Glucose [Mass/Vol] 107 mg/dL High 74 - 106 [facility] Comment on above: Performed By: #### 2 15098 #### [facility],[address] [place] [address] 64154 Potassium [Moles/Vol] 4.2 mmol/L Normal 3.5 - 5.1 [facility] Comment on above: Performed By: #### 2 28273 #### [facility],[address] [place] [address] 30068 Sodium [Moles/Vol] 139 mmol/L Normal 136 - 145 [facility] Comment on above: Performed By: #### 2 13155 #### [facility],[address] [place] [address] 23843 Urea nitrogen [Mass/Vol] 39 mg/dL High 7 - 18 [facility] Comment on above: Performed By: #### 2 39517 #### [facility],[address] [place] [address] 70646 CBC + DIFFon 09-09-2023 Baso # 0.03 x10EE3/UL Normal 0.00 - 0.10 [facility] Comment on above: Performed By: #### 2 30116 #### [facility],[address] [place] [address] 77561 Basophils/100 WBC (Bld) 0.4 % Normal 0.0 - 2.0 [facility] Comment on above: Performed By: #### 2 89279 #### [facility],[address] [place] [address] 65831 CBC + DIFF Normal [facility] Comment on above: Result Comment: CBC- COMPLETE BLOOD COUNT Performed By: #### 2 57517 #### [facility],[address] [place] [address] 18282 EO # 0.19 x10EE3/UL Normal 0.00 - 0.50 [facility] Comment on above: Performed By: #### 2 59290 #### [facility],[address] [place] [address] 36154 Eosinophils/100 WBC (Bld) 3.1 % Normal 0.0 - 7.0 [facility] Comment on above: Performed By: #### 2 33810 #### [facility],[address] [place] [address] Erythrocyte distribution width (RBC) [Ratio] 13.4 % Normal 12.0 - 15.6 [facility] Comment on above: Performed By: #### 2 65738 #### [facility] [facility],[address] [place] [address] Hematocrit (Bld) [Volume fraction] 42.7 % Normal 34.0 - 46.0 [facility] Comment on above: Performed By: #### 2 84490 #### [facility],[address] [place] [address] Hemoglobin (Bld) [Mass/Vol] 14.3 g/dL Normal 12.0 - 16.0 [facility] Comment on above: Performed By: #### 2 22748 #### [place] [address] Lymph # 1.41 x10EE3/UL Normal 0.80 - 2.80 [facility] Comment on above: Performed By: #### 2 03489 #### [place] [address] Lymphocytes/100 WBC (Bld) 22.4 % Normal 20.0 - 45.0 [facility] Comment on above: Performed By: #### 2 11258 #### [place] [address] MANUAL DIFF N/A Normal [facility] Comment on above: Performed By: #### 2 95733 #### [place] [address] MCH (RBC) [Entitic mass] 31 pg Normal 27 - 33 [facility] Comment on above: Performed By: #### 2 80353 #### [place] [address] MCHC 34 X10 3 Normal 32 - 36 [facility] Comment on above: Performed By: #### 2 48187 #### [facility],[address] [place] [address]013 MCV (RBC) [Entitic vol] 93 fL Normal 80 - 99 [facility] Comment on above: Performed By: #### 2 78989 #### [facility],[address] [place] [address] 12063 [place] # 0.55 x10EE3/UL Normal 0.20 - 1.00 [facility] Comment on above: Performed By: #### 2 32730 #### [facility],[address] [place] [address]391 MONOS % 8.7 % Normal 0.0 - 10.0 [facility] Comment on above: Performed By: #### 2 09263 #### [facility],[address] [place] [address]136 Morphology Yuri (Bld) [Interp] N/A Normal [facility] Comment on above: Performed By: #### 2 91419 #### [facility],[address] [place] [address]40 Neut # 4.12 x10EE3/UL Normal 1.50 - 7.10 [facility] Comment on above: Performed By: #### 2 38078 #### [facility],[address] [place] [address] 37627 Neutrophils/100 WBC (Bld) 65.4 % Normal 46.0 - 76.0 [facility] Comment on above: Performed By: #### 2 97003 #### [facility],[address] [place] [address] 01302 PLATELET 253 x10EE3/UL Normal 150 - 450 [facility] Comment on above: Performed By: #### 2 27825 #### [facility],[address] [place] [address] 08801 Platelet mean volume (Bld) [Entitic vol] 9.2 fL Normal 6.6 - 10.5 [facility] Comment on above: Result Comment: AUTO MATED DIFFERENTIAL Performed By: #### 2 83449 #### [facility],[address] [place] [address] 98979 RBC 4.59 x 10EE6/UL Normal 4.10 - 5.30 [facility] Comment on above: Performed By: #### 2 23457 #### [facility],[address] [place] [address] 46086 WBC 6.3 x 10EE3/UL Normal 4.5 - 10.8 [facility] Comment on above: Performed By: #### 2 42135 #### [facility],[address] [place] [address] 93391 URIC ACIDon 09-09-2023 Urate [Mass/Vol] 6.9 mg/dL High 2.6 - 6.0 [facility] Comment on above: Performed By: #### 2 90217 #### [facility],[address] [place] [address] 26280 URINE CREATININE AND PROTEIN RATIOon 09-09-2023 CREATININE UR 60.14 mg/dl Normal [facility] Comment on above: Performed By: #### 2 65381 #### [facility],[address] [place] [address] 33924 PC RATIO 3.73 mg/dL Normal 0.00 - 10.00 [facility] Comment on above: Performed By: #### 2 99449 #### [facility],[address] [place] [address]1239 Protein (U) [Mass/Vol] 224.30 mg/dL High 0.00 - 10.00 [facility] Comment on above: Performed By: #### 2 70802 #### [facility],[address] [place] [address] 88779 VITAMIN D, 25 HYDROXYon 08-25 VitD 18.50 ng/mL Low 30.00 - 100 [facility] Comment on above: Result Comment: 25-O HD3 indicates both endogenous production and supplementation. 25-OHD2 is an indicator of exogenous sources, such as diet or supplementation. Therapy is based on measurement of Total 25-OHD, with levels <20 ng/mL indicative of Vitamin D deficiency, while levels between 20 ng/mL and 30 ng/mL suggest insufficiency. Optimal levels are >=30ng/mL. Vitamin D, 25-OH D3 Not Established Vitamin D, 25-OH D2 Not Established Performed By: #### 2 50598 #### [facility],[address] [place] [address] [facility] 08-04-2023 CNPN Telephone (UROLAG) -- FELIPA LIMA ([id number]) 1955 F Date Time Provider Department 08/04/23 PORSHA TRAMMELL During your visit today, we recorded the following information about you: Vicki Conrad OCCA 08/04/2023 2:37 PM Signed Pt was notified. DERRICK Morrison Allergies As of Date: 08/04/2023 Noted Allergy Reaction CODEINE 07/06/2022 8 - GI Upset GADOLINIUM-CONTAINING CONTRAST ME*07/06/2022 4 - Hives LATEX 07/06/2022 2 - Rash MORPHINE 07/06/2022 8 - GI Upset WOOL 07/06/2022 2 - Rash Date Reviewed: 08/02/2023 Reviewed by: Indiana Burton - Fully Assessed Order(s):nitrofurantoin monohydrate and macrocrystal (MACROBID) 100 mg capsuleTake 1 capsule by mouth two times a day for 3 days. FOR 3 DAYS.Disp: 6 capsuleRfl: 3 Prescriptions as of 08/04/2023 - nitrofurantoin monohydrate and macrocrystal (MACROBID) 100 mg capsule Take 1 capsule by mouth two times a day for 3 days. FOR 3 DAYS. - SKYRIZI 150 mg/mL injection - oxybutynin ER (DITROPAN XL) 10 mg 24 hr tablet Take 1 tablet by mouth once daily. - potassium citrate ER (UROCIT-K) 10 mEq (1,080 mg) Take 1,080 mg by mouth three times daily. Takes 2 tabs 3 x day - sodium bicarbonate 650 mg tablet Take 650 mg by mouth three times daily. - ferrous sulfate 325 mg (65 mg iron) tablet Take 325 mg by mouth twice daily. - Cholecalciferol, Vitamin D3, 125 mcg (5,000 unit) cap Take 5,000 Units by mouth twice daily. Last dose 08/20/22 - furosemide (LASIX) 20 mg tablet Take 20 mg by mouth as needed. - allopurinol (ZYLOPRIM) 100 mg tablet Take 100 mg by mouth every morning. - pantoprazole DR (PROTONIX) 40 mg tablet Take 40 mg by mouth every morning. Problem List As Of Date 08/04/2023 Noted Resolved Gastroesophageal reflux disease [K21.9] 07/06/2022 VICKI (acute kidney injury) (HCC) [N17.9] 07/06/2022 Morbidly obese (HCC) [E66.01] 07/06/2022 Calculus of ureter [N20.1] 07/06/2022 Obesity, Class III, BMI >= 40 [E66.01] 08/26/2022 Stage 5 chronic kidney disease (HCC) [N18.5] 08/02/2023 Prescriptions ordered this encounter Disp Refills Start End NITROFURANTOIN MONOHYDRATE AND MACROCR* 6 ca* 3 08/04/2023 08/07/2023 Route: ORAL Sig: Take 1 capsule by mouth two times a day for 3 days. FOR 3 DAYS. Encounter Status:Closed by PORSHA TRAMMELL on 08/04/23 [facility] Qualitative QuantiFERON-TB g old in tube testOrdered By: Maxx Arevalo on 10-27-2022 M. tuberculosis tuberculin stim IFN-g Ql (Bld) 0.03 IU/mL . [facility] Serum hepatitis B virus core antibody detectionOrdered By: Maxx Arevalo on 10-27-2022 HBV core Ab Ql (S) Negative Negative [facility] Comment on above: Performed at: [facility] [place], [place] [id number] Director: Miguel Anaya PhD, Phone: [phone] Thin prep Papanicolaou smear with manual screeningOrdered By: Maxx Arevalo on 10-27-2022 Thin prep Papanicolaou smear with manual screening Comment . [facility] Comment on above: QuantiFERON-TB Gold Plus is a qualitative indirect test forM tuberculosis infection (including disease) and isintended for use in conjunction with risk assessment,radiography, and other medical and diagnostic evaluations.The QuantiFERON-TB Gold Plus result is determined bysubtracting the Nil value from either TB antigen (Ag)value. The Mitogen tube serves as a control for the test. Thin prep Papanicolaou smear with manual screening 0.01 IU/mL . [facility] Thin prep Papanicolaou smear with manual screening > 10.00 IU/mL . [facility] Thin prep Papanicolaou smear with manual screening Negative Negative [facility] Comment on above: No response to M tub erculosis antigens detected.Infection with M tuberculosis is unlikely, but high riskindividuals should be considered for additional testing(ATS/IDSA/CDC Clinical Practice Guidelines, 2017). Thereference range is an Antigen minus Nil result of <0.35IU/mL.The specimen received for QuantiFERON testing was incubatedby the ordering institution. Specific procedures outlinedin our Directory of Services and in the package insert forthe QuantiFERON Gold (In Tube) test must be followed toenable for proper stimulation of cells for the productionof interferon gamma. Chemiluminescence immunoassaymethodology FLUOROSCOPY IN OR/PAIN MGTon 11-12-2021 FLUOROSCOPY IN OR/PAIN MGT FLUOROSCOPY IN OR/PAIN MGT Ordering Physician: Porsha Trammell MD 11/12/2021 12:01 PM ABDOMINAL AND PELVIC FLUOROSCOPY Clinical Statement: Right renal calculus FINDINGS: 32 seconds fluoroscopy time was utilized by Dr. Trammell. 6 C-arm images were obtained showing instrumentation of the right ureter. IMPRESSION: 32 seconds fluoroscopy time utilized by Dr. Trammell. This report was electronically signed by Brad Rodriguez MD 11/12/2021 12:03 PM Reported By: BRAD RODRIGUEZ M.D. Signed By: BRAD RODRIGUEZ M.D. [facility] Fabian 11-12-2021 Potassium [Moles/Vol] 5.4 mmol/L High 3.5-5.1 [facility] Comment on above: Order Comment: Jose ramirez: Star Result Comment: Forrest ht Hemolysis, Result may be affected. Performed By: #### L [id number] #### [facility] [address] [place] [address] OR.OPRPTon 11-12-2021 Operative Report Normal [facility] OR.OPRPT [facility] Patient Name: FELIPA LIMA [address] [facility] Date of : 57 [place] [address] Unit Number: [id number] Operative Report Patient Status: REG [facility] Attending Doctor: Porsha Trammell MD Service Date: 11/12/21 1640 Operative Report Procedure Date: 11/12/21 Attending Physician: Porsha Trammell MD Procedure: Preoperative Diagnosis: []Right distal ureteral stone and right renal stones Postoperative Diagnosis: []Same Procedure Type: []Right ureteroscopy and right ureteral stone extraction with holmium laser lithotripsy similar: Right ureteroscopy and renal stone with holmium laser lithotripsy Anesthesia: []General Estimated Blood Loss: [] IV Fluids: [] Urine Output: [] Complications: [] Findings/Specimens: []None Procedure Details: The patient was administered IV antibiotics and taken to the operating room where she had bilateral SCDs placed. She was administered a general anesthetic. She was placed in the lithotomy position, prepped ChloraPrep, and sterilely draped. I used a 22 Danish cystoscope to grasp the previously placed stent. I passed a 0.03 Glidewire through this and then removed the stent. I use a semirigid ureteroscope to perform ureteroscopy of the distal ureter where there were approximately 5 fragments of stone seen I remove these with the scope. I then passed a second Glidewire and then over this wire passed a clear Jing sheath. I then performed flexible ureteroscopy and then performed laser lithotripsy for several stone fragments in the right lower pole. These were fractured into 1 mm fragments. A majority these fragments were removed using the clear Jing sheath. I reviewed the ureteroscope and sheath. I drained the bladder with the cystoscope. Summary: [] Disclaimer This dictation was created using voice recognition software. Phonetic and/or minor grammatical errors may exist. eSign Date and Time Porsha Trammell MD Verified/Reviewed by 11/12/21 1649 Normal [facility] BMPon 10-23-2021 Anion gap [Moles/Vol] 7 mmol/L Normal 5-16 [facility] Comment on above: Order Comment: Campu s: M Performed By: #### L [id number] #### [facility] [place] [address] Calcium [Mass/Vol] 8.5 mg/dL Normal 8.5-10.5 [facility] Comment on above: Order Comment: Campu s: M Result Comment: NOTE NEW NORMAL RANGE DUE TO REAGENT CHANGE Performed By: #### L 500.00209 #### [facility] [address] [place] [address] Chloride [Moles/Vol] 113 mmol/L High 98-107 [facility] Comment on above: Order Comment: Campu s: M Performed By: #### L 500.05477 #### [facility] [address] [place] [address]0975 CO2 [Moles/Vol] 23.0 mmol/L Normal 21-32 [facility] Comment on above: Order Comment: Campu s: M Performed By: #### L 500.88221 #### [facility] [address] [place] [address] 15812 Creatinine [Mass/Vol] 1.56 mg/dL High 0.510-0.950 [facility] Comment on above: Order Comment: Campu s: M Result Comment: Ashley ents receiving either N-Acetylcysteine (NAC) or Metamizole prior to venipuncture, may have falsely depressed results. Performed By: #### L 500.26885 #### [facility] [address] [place] [address]01 Glucose [Mass/Vol] 132 mg/dL High 70-100 [facility] Comment on above: Order Comment: Campu s: M Result Comment: 70-1 00- Normal Fasting; 100-125 Impaired Fasting; greater than 126 on more than one result- Diabetes. ADA guidelines. Results may be falsely elevated after the administration of Sulfapyridine. Results may be falsely depressed after the administration of Sulfasalazine. Performed By: #### L 500.70299 #### [facility] [address] [place] [address] Potassium [Moles/Vol] 4.8 mmol/L Normal 3.5-5.1 [facility] Comment on above: Order Comment: Campu s: M Performed By: #### L 500.12318 #### [facility] [address] [place] [address] Sodium [Moles/Vol] 143 mmol/L Normal 136-145 [facility] Comment on above: Order Comment: Campu s: M Performed By: #### L 500.34242 #### [facility] [address] [place] [address] Urea nitrogen [Mass/Vol] 30 mg/dL High 7-26 [facility] Comment on above: Order Comment: Campu s: M Performed By: #### L 500.40460 #### [facility] [address] [place] [address] Urea nitrogen/Creatinine [Mass ratio] 19 mg/mg Normal 15-24 [facility] Comment on above: Order Comment: Campu s: M Performed By: #### L 500.54966 #### [facility] [address] [place], [place] [id number] CBC W/DIFFon 10-23-2021 BASO ABS 0.00 K/CU MM Normal 0-0.2 [facility] Comment on above: Order Comment: Campu s: M Performed By: #### L 500.13759 #### [facility] [address] [place] [address] Basophils/100 WBC (Bld) 0.4 % Normal 0-2 [facility] Comment on above: Order Comment: Campu s: M Performed By: #### L 500.58589 #### [facility] [address] [place] [address] EOS ABS 0.00 K/CU MM Normal 0-0.5 [facility] Comment on above: Order Comment: Campu s: M Performed By: #### L 500.76628 #### [facility] [address] [place] [address] Eosinophils/100 WBC (Bld) 0.0 % Normal 0-5 [facility] Comment on above: Order Comment: Campu s: M Performed By: #### L 500.21332 #### [facility] [address] [place] [address] Erythrocyte distribution width (RBC) [Ratio] 12.4 % Normal 11-14.5 [facility] Comment on above: Order Comment: Campu s: M Performed By: #### L 500.37329 #### [facility] [address] [place] [address] Hematocrit (Bld) [Volume fraction] 36.0 % Normal 35.0-47.0 [facility] Comment on above: Order Comment: Campu s: M Performed By: #### L 500.89672 #### [facility] [address] [place] [address] Hemoglobin (Bld) [Mass/Vol] 11.7 g/dL Normal 11.5-15.5 [facility] Comment on above: Order Comment: Campu s: M Performed By: #### L 500.25050 #### [facility] [address] [place] [address] IMMATR GRAN ABS 0.00 K/CU MM Normal Less than 2 [facility] Comment on above: Order Comment: Campu s: M Performed By: #### L 500.41433 #### [facility] [address] [place] [address] IMMATURE GRAN % 0.4 % Normal Less than 2 [facility] Comment on above: Order Comment: Campu s: M Performed By: #### L 500.38576 #### [facility] [address] [place] [address] LYMPH ABS 0.50 K/CU MM Low 0.9-4.4 [facility] Comment on above: Order Comment: Campu s: M Performed By: #### L 500.27571 #### [facility] [address] [place] [address] Lymphocytes/100 WBC (Bld) 9.8 % Low 20-40 [facility] Comment on above: Order Comment: Campu s: M Performed By: #### L 500.76444 #### [facility] [address] [place] [address] MCHC (RBC) [Mass/Vol] 32.5 g/dL Normal 32.0-36.0 [facility] Comment on above: Order Comment: Campu s: M Performed By: #### L 500.49429 #### [facility] [address] [place] [address] MCV (RBC) [Entitic vol] 92.1 fL Normal 80.0-99.0 [facility] Comment on above: Order Comment: Campu s: M Performed By: #### L 500.33823 #### [facility] [address] [place] [address] MONO ABS 0.30 K/CU MM Normal 0.1-1.1 [facility] Comment on above: Order Comment: Campu s: M Performed By: #### L 500.01891 #### [facility] [address] [place] [address] Monocytes/100 WBC (Bld) 5.1 % Normal 2-10 [facility] Comment on above: Order Comment: Campu s: M Performed By: #### L 500.01582 #### [facility] [address] [place], [place] [id number] NEUTROPHIL ABS 4.30 K/CU MM Normal 2.0-8.3 [facility] Comment on above: Order Comment: Campu s: M Performed By: #### L 500.28618 #### [facility] [address] [place] [address] Neutrophils/100 WBC (Bld) 84.3 % High 45-75 [facility] Comment on above: Order Comment: Campu s: M Performed By: #### L 500.57964 #### [facility] [address] [place] [address] Nucleated RBC/100 WBC (Bld) [Ratio] 0.0 % Normal Less than 1 [facility] Comment on above: Order Comment: Campu s: M Performed By: #### L 500.97554 #### [facility] [address] [place] [address] Platelet mean volume (Bld) [Entitic vol] 10.9 fL Normal 9.4-12.4 [facility] Comment on above: Order Comment: Campu s: M Performed By: #### L 500.28377 #### [facility] [address] [place] [address] PLT 165 K/CU MM Normal 150-450 [facility] Comment on above: Order Comment: Campu s: M Performed By: #### L 500.01319 #### [facility] [address] [place] [address] RBC 3.91 M/CU MM Normal 3.90-5.30 [facility] Comment on above: Order Comment: Campu s: M Performed By: #### L 500.93860 #### [facility] [address] [place] [address] 24656 WBC 5.1 K/CUMM Normal 4.5-11.0 [facility] Comment on above: Order Comment: Campu s: M Performed By: #### L 500.88593 #### [facility] [address] [place] [address] DISCH.SUMon 10-23-2021 DISCH.SUM [facility] Patient Name: FELIPA LIMA [address] [place] [address] Date of : 57 [place], [place] [address] Unit Number: [id number] Discharge Summary Patient Status: ADM [place] Attending Doctor: Mari Chilel MD Service Date: 10/23/21 1113 Discharge Summary Admit Date Admission Date Time: 10/22/21 1705 Anticipated Discharge Date 10/23/21 Final Dx/Problem List 1. Right ureteral calculus 2. DM2 (diabetes mellitus, type 2) 3. Hydronephrosis 4. CKD (chronic kidney disease) stage 3, GFR 30-59 ml/min 5. Morbid obesity with BMI of 40.0-44.9, adult Patient Problems Reviewed: Yes Chief Complaint/HPI Abnormal CT scan Reason for Admission Right upper quadrant fullness with concern for lipoma and PCP perform a CT abdomen pelvis that showed hydroureteronephrosis and right calculi Operations/Procedures Status post cystoscopy with right stent internalization on October 22, 2021 Hospital Course This is a 65-year-old morbidly obese female with a pertinent past medical history of PUD, GERD, CKD stage III who follows credit control assistant Dr. Guerrero, psoriasis, and nephrolithiasis who patient follows urologist Dr. Trammell who comes to the [facility] with chief complaint per chart of abnormal CAT scan when there was concern for lipoma with right upper quadrant fullness associated with nausea at primary care provider office per chart. As a result, primary care provider ordered a CT abdomen/ pelvis that instead showed nephrolithiasis with hydroureteronephrosis so patient came into [facility] for further surgical intervention for her hydroureteronephrosis. #Right ureteral calculi with hydroureteronephrosis: -CT abdomen pelvis showed probable calculus in the distal right ureter with associated inflammation and hydroureteronephrosis. Correlate with urinalysis for evidence of infection. Otherwise similar appearance of the right kidney and right ureter -Urology was consulted and patient status post cystoscopy with right stent internalization. Patient will follow up with primary care provider within a week and urology as scheduled on Tuesday, October 26, 2021. Patient is amenable to the plan and acknowledges understanding. Pertinent Physical Findings General: Morbidly obese female who appears stated age in no acute distress HEENT: Normocephalic/atraumatic Heart: Regular rate rhythm no murmurs or gallops Lungs: Clear to auscultation bilaterally Abdomen: Soft nondistended nontender normoactive bowel sounds Extremities: No cyanosis or edema lower extremities bilaterally Psych: Normal affect Neuro: Alert and O x3 answers all questions appropriately Consults Urologic Prescriptions Stop taking the following medications: Cholecalciferol (Vitamin D3) (Vitamin D 1000 Unit Tab) 1,000 UNIT TABLET 5,000 UNIT ORAL TUESDAY,TUESDAY,TUESDAY Continue taking these medications: Pantoprazole* (Protonix 40MG Tab*) 40 MG TABLET.DR 40 MILLIGRAM ORAL ONCE DAILY BEFORE MEALS Acetaminophen* (Tylenol 500MG Tab*) 500 MG TABLET 500 MILLIGRAM ORAL EVERY 4 HOURS NEEDED as needed for PAIN Ferrous Sulfate* (Feosol 325MG Tab EC*) 325 MG TABLET 325 MILLIGRAM ORAL 3 TIMES DAILY potassium CHLORIDE* (K-Dur 10MEQ Tab.sa*) (Unknown Strength) TABLET.ER Unknown Dose ORAL 3 TIMES DAILY Sodium BICARBonate* (Sodium BICARBonate 650MG TAB*) 650 MG TABLET 650 MILLIGRAM ORAL 3 TIMES DAILY Cholecalciferol (Vitamin D3)* (Vitamin D3 1000 Unit tab*) 25 MCG TABLET 5,000 UNIT ORAL EVERY DAY Allopurinol* (Zyloprim 100MG Tab*) 100 MG TABLET 100 MILLIGRAM ORAL EVERY DAY Referrals Ordered Referrals Primary Care Provide In One Week For Providers: Kandace Katz MD [facility] In One-Two W... For Providers: Porsha Trammell MD [address] [place] [address] [address] [place] [address] Condition: Improved, Stable Disposition Home Phys Discharge Time Incur(Min) 32 CC: Kandace aKtz MD Disclaimer This dictation was created using voice recognition software. Phonetic and/or minor grammatical errors may exist. eSign Date and Time Tonja Neumann MD Verified/Reviewed by 10/23/21 1117 [place] [facility] ESTon 10-23-2021 IF AMER 40 [facility] Comment on above: Order Comment: Campu s: M Performed By: #### L 500.02510 #### [facility] [address] [place] [address] IF non-AFR AMER 33 [facility] Comment on above: Order Comment: Campu s: M Performed By: #### L 500.17610 #### [facility] [address] [place] [address] PROG.NOTEon 10-23-2021 PROG.NOTE [facility] Patient Name: FELIPA LIMA [address] [facility] Date of : [address] [place], [place] [address] Unit Number: [id number] Progress Note-Physician Patient Status: ADM Savannah Attending Doctor: Mari Chilel MD Service Date: 10/23/21 1159 Subjective S: (2 ROS minimum) The patient remains afebrile feeling great and ready to go home. The urine culture was mixed nonspecific. Patient can go home with antibiotic and follow-up with me next week.Creatinine has improved to 1.5 Objective (ROS) Nursing Vitals Vital Signs (Last) Result Date Time Pulse Ox 94 10/23 0720 B/P 100/47 10/23 07 O2 Delivery ROOM AIR 10/23 714 Temp 97.5 10/23 714 Pulse 50 10/23 0715 Resp 20 10/23 07 Abdominal exam-benign Assessment and Plan Conclusion 1. Right ureteral calculus Status post stenting yesterday tolerating well can be discharged home we will see her next week On Sarahi 2:39p Oct 22, 2021 MARIVEL SOLANO wrote The patient does have indeed new right ureteral stones though rather asymptomatic and questionable infection we will place stents at this point and plan at a later date to do ureteroscopy. 2. Hydronephrosis On Sarahi 2:39p Oct 22, 2021 MARIVEL SOLANO wrote The patient has had some progressive hydroureteronephrosis and renal atrophy on that right side from July 2020 to this current CAT scan yesterday. And we will be placing a stent for the stones. 3. Nephrolithiasis On Sarahi 2:39p Oct 22, 2021 MARIVEL SOLANO wrote The patient has some layering of stones in the kidney on the right 4. VICKI (acute kidney injury) On Sarahi 2:39p Oct 22, 2021 MARIVEL SOLANO wrote Creatinine overall is improved at 1.6 however there is progressive loss of the right renal unit and atrophy I think she would benefit from a renal nuclear scan and then consideration for nephrectomy but fortunately she has not had recurrent UTIs or pain. 5. Renal atrophy, right On Sarahi 2:39p Oct 22, 2021 MARIVEL SOLANO wrote This is progressive since July and August 2020.As above discussion Disclaimer This dictation was created using voice recognition software. Phonetic and/or minor grammatical errors may exist. eSign Date and Time Marivel Solano MD Verified/Reviewed by 10/23/21 1201 Normal [facility] Progress Note-Physician Normal [facility] URINE CULTUREon 10-23-2021 Bacteria identified Cx Nom (U) URINE RESULT >100,000 COL/ML MIXED ABIODUN-PLEASE REPEAT-POSSIBLE CONTAMIN Normal [facility] Comment on above: Performed By: #### M 100.22799 #### [facility] [place] [address] BMPon 10-22-2021 Anion gap [Moles/Vol] 7 mmol/L Normal 5-16 [facility] Comment on above: Order Comment: Jose s: M Performed By: #### L 500.35291, L500.29481 #### [facility] [place] [address] Calcium [Mass/Vol] 8.9 mg/dL Normal 8.5-10.5 [facility] Comment on above: Order Comment: Campu s: M Result Comment: NOTE NEW NORMAL RANGE DUE TO REAGENT CHANGE Performed By: #### L 500.80923, L500.34854 #### [facility] [address] [place] [address] Chloride [Moles/Vol] 112 mmol/L High 98-107 [facility] Comment on above: Order Comment: Campu s: M Performed By: #### L 500.10243, L500.16216 #### [facility] [address] [place] [address] CO2 [Moles/Vol] 25.0 mmol/L Normal 21-32 [facility] Comment on above: Order Comment: Campu s: M Performed By: #### L 500.88373, L500.38943 #### [facility] [address] [place] [address] Creatinine [Mass/Vol] 1.60 mg/dL High 0.510-0.950 [facility] Comment on above: Order Comment: Campu s: M Result Comment: Ashley ents receiving either N-Acetylcysteine (NAC) or Metamizole prior to venipuncture, may have falsely depressed results. Performed By: #### L 500.41680, L500.82606 #### [facility] [address] [place], [place] [id number] Glucose [Mass/Vol] 111 mg/dL High 70-100 [facility] Comment on above: Order Comment: Campu s: M Result Comment: 70-1 00- Normal Fasting; 100-125 Impaired Fasting; greater than 126 on more than one result- Diabetes. ADA guidelines. Results may be falsely elevated after the administration of Sulfapyridine. Results may be falsely depressed after the administration of Sulfasalazine. Performed By: #### L 500.27779, L500.03187 #### [facility] [address] [place] [address] Potassium [Moles/Vol] 4.1 mmol/L Normal 3.5-5.1 [facility] Comment on above: Order Comment: Campu s: M Performed By: #### L 500.56351, L500.24926 #### [facility] [address] [place] [address] Sodium [Moles/Vol] 144 mmol/L Normal 136-145 [facility] Comment on above: Order Comment: Campu s: M Performed By: #### L 500.79627, L500.57991 #### [facility] [address] [place] [address] Urea nitrogen [Mass/Vol] 33 mg/dL High 7-26 [facility] Comment on above: Order Comment: Campu s: M Performed By: #### L 500.70092, L500.48593 #### [facility] [address] [place] [address] Urea nitrogen/Creatinine [Mass ratio] 21 mg/mg Normal 15-24 [facility] Comment on above: Order Comment: Campu s: M Performed By: #### L 500.55903, L500.99331 #### [facility] [address] [place] [address] CBCon 10-22-2021 Erythrocyte distribution width (RBC) [Ratio] 12.7 % Normal 11-14.5 [facility] Comment on above: Order Comment: Campu s: M Performed By: #### L 200.73146 #### [facility] [address] [place], [place] [id number] Hematocrit (Bld) [Volume fraction] 37.6 % Normal 35.0-47.0 [facility] Comment on above: Order Comment: Campu s: M Performed By: #### L 200.35935 #### [facility] [address] [place] [address] Hemoglobin (Bld) [Mass/Vol] 12.2 g/dL Normal 11.5-15.5 [facility] Comment on above: Order Comment: Campu s: M Performed By: #### L 200.22946 #### [facility] [address] [place] [address] MCHC (RBC) [Mass/Vol] 32.4 g/dL Normal 32.0-36.0 [facility] Comment on above: Order Comment: Campu s: M Performed By: #### L 200.02087 #### [facility] [address] [place] [address] MCV (RBC) [Entitic vol] 92.2 fL Normal 80.0-99.0 [facility] Comment on above: Order Comment: Campu s: M Performed By: #### L 200.09264 #### [facility] [address] [place] [address] Nucleated RBC/100 WBC (Bld) [Ratio] 0.0 % Normal Less than 1 [facility] Comment on above: Order Comment: Campu s: M Performed By: #### L 200.87558 #### [facility] [address] [place] [address] Platelet mean volume (Bld) [Entitic vol] 10.5 fL Normal 9.4-12.4 [facility] Comment on above: Order Comment: Campu s: M Performed By: #### L 200.19252 #### [facility] [address] [place] [address] PLT 160 K/CU MM Normal 150-450 [facility] Comment on above: Order Comment: Campu s: M Performed By: #### L 200.05032 #### [facility] [address] [place] [address] RBC 4.08 M/CU MM Normal 3.90-5.30 [facility] Comment on above: Order Comment: Campu s: M Performed By: #### L 200.61544 #### [facility] [address] [place] [address] WBC 5.0 K/CUMM Normal 4.5-11.0 [facility] Comment on above: Order Comment: Campu s: M Performed By: #### L 200.81915 #### [facility] [address] [place] [address] GFR ESTon 10-22-2021 IF AMER 39 [facility] Comment on above: Order Comment: Campu s: M Performed By: #### L 500.41287, L500.16382 #### [facility] [address] [place] [address] IF non-AFR AMER 32 [facility] Comment on above: Order Comment: Campu s: M Performed By: #### L 500.97668, L500.79247 #### [facility] [address] [place] [address] HP.[facility].CONon 10-22-2021 CONSULTATION-H&P [facility] HP.IMS.CON [facility] Patient Name: FELIPA LIMA [address] [place] [address] Date of : [address] [place] [address] Unit Number: [id number] CONSULTATION-HandP Patient Status: ADM IN Attending Doctor: Mari Chilel MD Service Date: 10/22/21 1413 History of Present Illness Reason for Consult Right hydroureteronephrosis, ureteral stones, renal atrophy, renal stones, VICKI, History of Present Illness The patient is a 65-year-old female who was getting worked up for a right upper quadrant lipoma fullness. This was done at an outside facility where a CT scan was obtained that revealed hydroureteronephrosis with renal atrophy stones layering in the right kidney and a few distal ureteral stones. Patient was asymptomatic with no colic or fever or pain. Patient was transferred over to [facility] now when the CT scan was compared to her July and August 2020 there has been progressive atrophy and parenchymal thinning of that right renal unit with some more hydroureteronephrosis. Also is new several small calculi in that distal ureter which were not present on those prior exams. Due to a questionable infection although the urine is rather clear we are planning to place a stent today and then perform ureteroscopy at a later date. The stones likely will pass. I discussed with the patient the consideration of a renal nuclear scan and likely nephrectomy of this likely poorly functioning renal unit on the right. Last year she had presented with a left perinephric abscess that has since resolved. Past Medical/Surgical Hx Past Medical History PUD GERD CKD Psoriasis Nephrolithiasis Perinephric abscess July 2020 Past Surgical History What sounds like a Gadiel patch Lithotripsy Nephrostomy tube placement on the right Hysterectomy [facility] Family/Social History Family History FATHER, , Age 82; Cause: Old age. FH: diabetes mellitus BROTHER FH: colon cancer MOTHER, , Age 80; Cause: Dementia. FH: CHF (congestive heart failure) FH: hypertension Allergies/Home Medications Allergies Coded Allergies: IODINATED CONTRAST MEDIA (From CONTRAST MEDIA) (Mild, RASH 04/15/20) LATEX (08/11/20) WOOL (04/15/20) CODEINE (Mild, NAUESEA and VOMITING 12/22/19) MORPHINE (Mild, NAUESEA and VOMITING 12/22/19) Home Medications Acetaminophen* (Tylenol 500MG Tab*) 500 MG TABLET 500 MG PO Q4HPRN PRN PAIN, Ref 0 ( Reported) Entered as Reported by MIKO SEGUNDO on 04/15/20 1740 Last Action: Reviewed on 10/22/216 by KYM TORRES Allopurinol* (Zyloprim 100MG Tab*) 100 MG TABLET 100 MG PO QDAY, Ref 0 (Reported) Entered as Reported by KYM TORRES on 10/22/2113 Last Action: Reviewed on 10/22/2113 by KYM TORRES Cholecalciferol (Vitamin D3)* (Vitamin D3 1000 Unit tab*) 25 MCG TABLET 5,000 UNIT PO QDAY, Ref 0 (Reported) Entered as Reported by KYM TORRES on 10/22/2112 Last Action: Reviewed on 10/22/2112 by KYM TORRES Ferrous Sulfate* (Feosol 325MG Tab EC*) 325 MG TABLET 325 MG PO TID, Ref 0 (Reported) Entered as Reported by MIKO SEGUNDO on 04/15/20 1741 Last Action: Reviewed on 10/22/215 by KYM TORRES Pantoprazole* (Protonix 40MG Tab*) 40 MG TABLET.DR 40 MG PO QDAYAC, Ref 0 (Reported) Entered as Reported by ADA ELIZALDE on 12/22/19 1835 Last Action: Reviewed on 10/22/2112 by KYM TORRES potassium CHLORIDE* (K-Dur 10MEQ Tab.sa*) (Unknown Strength) TABLET.ER (Unknown Dose) PO TID, Ref 0 (Reported) Entered as Reported by FERNANDO OLIVARES on 08/09/20 1554 Last Action: Reviewed on 10/22/2112 by KYM TORRES Sodium BICARBonate* (Sodium BICARBonate 650MG TAB*) 650 MG TABLET 650 MG PO TID, Ref 0 (Reported) Entered as Reported by KYM TORRES on 10/22/219 Last Action: Reviewed on 10/22/2112 by KYM TORRES Discontinued Medications Cholecalciferol (Vitamin D3) (Vitamin D 1000 Unit Tab) 1,000 UNIT TABLET 5,000 UNIT PO MWF, Ref 0 (Reported) Discontinued reason: DC By Physician Last Action: Discontinued on 10/22/2112 by KYM TORRES Physical Exam Vital Signs Vital Signs (Last) Result Date Time Pulse Ox 98 10/22 1346 B/P 117/60 10/22 1346 Temp 97.2 10/22 1346 Pulse 80 10/22 1346 Resp 20 10/22 1346 Abdominal exam. There is no significant CVA tenderness on either side and no significant abdominal or peritoneal signs.IandO 24 Hour Summary 10/22 0000 Intake Total Output Total Balance Patient 261 lb Weight Laboratory Tests 10/22 10/21 10/21 0607 1813 1552 Chemistry Sodium (136 - 145 MMOL/L) 144 Potassium (3.5 - 5.1 MMOL/L) 4.1 Chloride (98 - 107 MMOL/L) 112 H Carbon Dioxide (21 - 32 MMOL/L) 25.0 Anion Gap (5 - 16 MMOL/L) 7 BUN (7 - 26 MG/DL) 33 H Creatinine (0.510 - 0.950 MG/DL) 1.60 H Est GFR ( Amer) 39 Est GFR (Non-Af Amer) 32 BUN/Creatinin (more content not included)... Normal [facility] OR.OPRPTon 10-22-2021 OR.OPRPT [facility] Patient Name: FELIPA LIMA [address] Date of : [address] [place] [address] Unit Number: [id number] Operative Report Patient Status: ADM IN Attending Doctor: Mari Chilel MD Service Date: 10/22/21 1500 Operative Report Procedure Date: 10/22/21 Attending Physician: Marivel Solano MD Procedure: Preoperative Diagnosis: []Right distal ureteral stones and hydronephrosis and right renal atrophy possible pyelonephritis Postoperative Diagnosis: []Same and the patient had a high-grade obstructing right distal ureteral stone Procedure Type: []Cystoscopy, right 7 x 24 cm black Cook stent AnesthesiGETA Estimated Blood Loss: []Minimal IV Fluids: [] Urine Output: [] Complications: [] Findings/Specimens: [] Procedure Details: []The patient was taken to the operative suite given anesthetic and placed in dorsolithotomy with SCDs in place. The patient then had michele cystoscopy after being prepped and draped. The bladder was normal with no exophytic lesions masses or gross. Glidewire was attempted to be placed up the right ureteral orifice there was high- grade obstructing likely stone just immediate to the ureteral orifice. With the aid of the pusher as a open-ended catheter the obstructing area was able to be bypassed with the wire. The patient then had a 7 x 24 black Cook stent attempted to be placed with significant resistance and finally it broke free and the stent could be placed coiling in the upper collecting system and bladder. A significant amount of particulate debris began effluxing through the stent likely supporting an obstructive process and or additional infection. The patient will follow up as an outpatient checking cultures and eventually will require ureteroscopy stone manipulation and consideration of a renal nuclear scan to assess the functionality of that right renal unit. Summary: [] Disclaimer This dictation was created using voice recognition software. Phonetic and/or minor grammatical errors may exist. eSign Date and Time Marivel Solano MD Verified/Reviewed by 10/22/21 1504 Normal [facility] 10-22-2021 [facility] Patient Name: FELIPA LIMA [address] Date of : [address] [place] [address] Unit Number: [id number] Progress Note-Hospitalist Patient Status: ADM Savannah Attending Doctor: Mari Chilel MD Service Date: 10/22/21 1741 Chief Complaint Chief Complaint Abnormal CT scan Subjective S: (2 ROS minimum) No acute events overnight. Per patient: Denies any pain, shortness of breath, and nausea. Charge nurse and bedside nurse updated. Objective (ROS) Nursing Vitals Vital Signs (Last) Result Date Time Pulse Ox 98 10/22 1346 B/P 117/60 10/22 1346 Temp 97.2 10/22 1346 Pulse 80 10/22 1346 Resp 20 10/22 1346 General Appearance Morbidly obese female who appears stated age in no acute distress Physical Exam Neurological / Psychiatric Alert, Orientation X3, Affect Normal HEENT No Trauma Respiratory Normal Breathing Effort, Clear Lungs Cardiovascular Heart RRR, No M / R / G Gastrointestinal Normal Bowel Sounds, Non Tender, Soft and nondistended Musculoskeletal No Edema, No Trauma Skin Normal Turgor, Warm / Dry Assessment and Plan Conclusion 1. Right ureteral calculus 2. DM2 (diabetes mellitus, type 2) 3. Hydronephrosis 4. CKD (chronic kidney disease) stage 3, GFR 30-59 ml/min 5. Morbid obesity with BMI of 40.0-44.9, adult 6. DVT prophylaxis 7. Full code status This is a 65-year-old morbidly obese female with a pertinent past medical history of PUD, GERD, CKD stage III who follows credit control assistant Dr. Hall, psoriasis, and nephrolithiasis who patient follows credit control assistant Dr. Peter who comes to the [facility] chief complaint for chart of abnormal CAT scan that she follow with her primary care provider for right upper quadrant fullness associated nausea with concern for possible lipoma versus a hernia and was found to have nephrolithiasis with hydroureteronephrosis so patient came into [facility] for further surgical intervention for her hydroureteronephrosis. #Right ureteral calculi with hydroureteronephrosis: -CT abdomen pelvis showed probable calculus in the distal right ureter with associated inflammation and hydroureteronephrosis. Correlate with urinalysis for evidence of infection. Otherwise similar appearance of the right kidney and right ureter -Urology was consulted and patient status post cystoscopy with right stent internalization. -Patient currently on antibiotics and IV fluids #Chronic comorbidities: -Resume home medications appropriately -DVT prophylaxis as designated -Full code per chart -Disposition: Stable. Possible discharge tomorrow Disclaimer This dictation was created using voice recognition software. Phonetic and/or minor grammatical errors may exist. eSign Date and Time Tonja Neumann MD Verified/Reviewed by 10/22/21 1745 [facility] Progress Note-Hospitalist [facility] 10-21-2021 Anion gap [Moles/Vol] 6 mmol/L Normal 5-16 [facility] Comment on above: Order Comment: Campu s: M Performed By: #### L 500.26090, L500.79183, L500.66732, L500.63434 #### [facility] [place] [address] Calcium [Mass/Vol] 8.9 mg/dL Normal 8.5-10.5 [facility] Comment on above: Order Comment: Campu s: M Result Comment: NOTE NEW NORMAL RANGE DUE TO REAGENT CHANGE Performed By: #### L 500.68346, L500.59059, L500.72562, L500.45333 #### [facility] [address] [place] [address] Chloride [Moles/Vol] 110 mmol/L High 98-107 [facility] Comment on above: Order Comment: Campu s: M Performed By: #### L 500.41156, L500.67457, L500.41406, L500.26522 #### [facility] [place] [address] CO2 [Moles/Vol] 27.0 mmol/L Normal 21-32 [facility] Comment on above: Order Comment: Campu s: M Performed By: #### L 500.19578, L500.43725, L500.26296, L500.87931 #### [facility] [address] [place] [address] Creatinine [Mass/Vol] 1.66 mg/dL High 0.510-0.950 [facility] Comment on above: Order Comment: Jamalu s: M Result Comment: Ashley ents receiving either N-Acetylcysteine (NAC) or Metamizole prior to venipuncture, may have falsely depressed results. Performed By: #### L 500.96377, L500.53086, L500.84708, L500.70943 #### [facility] [address] [place] [address] Glucose [Mass/Vol] 84 mg/dL Normal 70-100 [facility] Comment on above: Order Comment: Jamalu s: M Result Comment: 70-1 00- Normal Fasting; 100-125 Impaired Fasting; greater than 126 on more than one result- Diabetes. ADA guidelines. Results may be falsely elevated after the administration of Sulfapyridine. Results may be falsely depressed after the administration of Sulfasalazine. Performed By: #### L 500.74332, L500.23274, L500.65039, L500.96842 #### [facility] [address] [place] [address] Potassium [Moles/Vol] 4.7 mmol/L Normal 3.5-5.1 [facility] Comment on above: Order Comment: Jamalu s: M Result Comment: Slig ht Hemolysis, Result may be affected. Performed By: #### L 500.34059, L500.67968, L500.34578, L500.00522 #### [facility] [address] [place], [place] [address] Sodium [Moles/Vol] 143 mmol/L Normal 136-145 [facility] Comment on above: Order Comment: Campu s: M Performed By: #### L 500.56714, L500.60533, L500.96416, L500.67777 #### [facility] [address] [place] [address] Urea nitrogen [Mass/Vol] 35 mg/dL High 7-26 [facility] Comment on above: Order Comment: Campu s: M Performed By: #### L 500.44382, L500.25798, L500.99462, L500.63049 #### [facility] [address] [place] [address] Urea nitrogen/Creatinine [Mass ratio] 21 mg/mg Normal 15-24 [facility] Comment on above: Order Comment: Campu s: M Performed By: #### L 500.61110, L500.10095, L500.52677, L500.39081 #### [facility] [address] [place] [address] CBC W/DIFFon 10-21-2021 BASO ABS 0.00 K/CU MM Normal 0-0.2 [facility] Comment on above: Order Comment: Campu s: M Performed By: #### L 500.30813 #### [facility] [address] [place] [address] Basophils/100 WBC (Bld) 0.6 % Normal 0-2 [facility] Comment on above: Order Comment: Campu s: M Performed By: #### L 500.26048 #### [facility] [address] [place] [address] EOS ABS 0.20 K/CU MM Normal 0-0.5 [facility] Comment on above: Order Comment: Campu s: M Performed By: #### L 500.04990 #### [facility] [address] [place] [address] Eosinophils/100 WBC (Bld) 3.5 % Normal 0-5 [facility] Comment on above: Order Comment: Campu s: M Performed By: #### L 500.20153 #### [facility] [address] [place] [address] Erythrocyte distribution width (RBC) [Ratio] 12.7 % Normal 11-14.5 [facility] Comment on above: Order Comment: Campu s: M Performed By: #### L 500.06499 #### [facility] [address] [place] [address] Hematocrit (Bld) [Volume fraction] 38.5 % Normal 35.0-47.0 [facility] Comment on above: Order Comment: Campu s: M Performed By: #### L 500.96381 #### [facility] [address] [place] [address] Hemoglobin (Bld) [Mass/Vol] 12.5 g/dL Normal 11.5-15.5 [facility] Comment on above: Order Comment: Campu s: M Performed By: #### L 500.75034 #### [facility] [address] [place] [address] IMMATR GRAN ABS 0.00 K/CU MM Normal Less than 2 [facility] Comment on above: Order Comment: Campu s: M Performed By: #### L 500.67659 #### [facility] [address] [place] [address] IMMATURE GRAN % 0.2 % Normal Less than 2 [facility] Comment on above: Order Comment: Campu s: M Performed By: #### L 500.98284 #### [facility] [address] [place], [place] [id number] LYMPH ABS 1.00 K/CU MM Normal 0.9-4.4 [facility] Comment on above: Order Comment: Campu s: M Performed By: #### L 500.11946 #### [facility] [address] [place] [address] Lymphocytes/100 WBC (Bld) 15.9 % Low 20-40 [facility] Comment on above: Order Comment: Campu s: M Performed By: #### L 500.34608 #### [facility] [address] [place] [address] MCHC (RBC) [Mass/Vol] 32.5 g/dL Normal 32.0-36.0 [facility] Comment on above: Order Comment: Campu s: M Performed By: #### L 500.81177 #### [facility] [address] [place] [address] MCV (RBC) [Entitic vol] 92.3 fL Normal 80.0-99.0 [facility] Comment on above: Order Comment: Campu s: M Performed By: #### L 500.55586 #### [facility] [address] [place] [address] MONO ABS 0.50 K/CU MM Normal 0.1-1.1 [facility] Comment on above: Order Comment: Campu s: M Performed By: #### L 500.00841 #### [facility] [address] [place], [place] [id number] Monocytes/100 WBC (Bld) 7.2 % Normal 2-10 [facility] Comment on above: Order Comment: Campu s: M Performed By: #### L 500.86287 #### [facility] [address] [place] [address] NEUTROPHIL ABS 4.60 K/CU MM Normal 2.0-8.3 [facility] Comment on above: Order Comment: Campu s: M Performed By: #### L 500.89930 #### [facility] [address] [place], [place] [id number] Neutrophils/100 WBC (Bld) 72.6 % Normal 45-75 [facility] Comment on above: Order Comment: Campu s: M Performed By: #### L 500.06429 #### [facility] [address] [place] [address] Nucleated RBC/100 WBC (Bld) [Ratio] 0.0 % Normal Less than 1 [facility] Comment on above: Order Comment: Campu s: M Performed By: #### L 500.26980 #### [facility] [address] [place] [address] Platelet mean volume (Bld) [Entitic vol] 10.2 fL Normal 9.4-12.4 [facility] Comment on above: Order Comment: Campu s: M Performed By: #### L 500.11935 #### [facility] [address] [place], [place] [id number] PLT 171 K/CU MM Normal 150-450 [facility] Comment on above: Order Comment: Campu s: M Performed By: #### L 500.29052 #### [facility] [address] [place], [place] [id number] RBC 4.17 M/CU MM Normal 3.90-5.30 [facility] Comment on above: Order Comment: Campu s: M Performed By: #### L 500.29462 #### [facility] [address] [place] [address] WBC 6.3 K/CUMM Normal 4.5-11.0 [facility] Comment on above: Order Comment: Campu s: M Performed By: #### L 500.96997 #### [facility] [address] [place], [place] [id number] # [phone] CT ABD/PEL STONE PROTOCOLon 10-21-2021 CT ABD/PEL STONE PROTOCOL EXAMINATION: CT ABDOMEN AND PELVIS WITHOUT IV CONTRAST (Renal stone protocol) CLINICAL HISTORY: Right renal inflammation/infection. TECHNIQUE: Non-contrast imaging of the abdomen and pelvis was performed through the urinary tract. Study performed without intravenous or oral contrast to evaluate for urinary tract calculus. MQ: [id number] Contrast: IV contrast: None Oral contrast: None CT Radiation dose: Integrated dose-length product (DLP) for this visit = 833.65 mGy*cm. CT Dose Reduction Employed: Automated exposure control. COMPARISON: September 02, 2020. RESULT: Limitations: Unenhanced imaging is limited for the evaluation of some renal and other intra-abdominal and pelvic pathology. Urinary Tract: Right kidney and ureter: Calcifications associated with the distal right ureter are again noted with some more proximal calcifications, measuring up to 5 mm favored to be within the ureter. There is worsened upstream hydroureteronephrosis. Bilateral cortical thinning is again demonstrated in the right kidney where there are renal cystic lesions with dependent calculi. Left kidney and ureter: No calculus. No hydronephrosis. No finding to suggest cyst or mass in the unenhanced kidney. Bladder: No calculus. Abdomen and Pelvis: Liver: Unremarkable. Biliary: The gallbladder is unremarkable. Spleen: No splenomegaly. Pancreas: Unremarkable. Adrenals: Normal. GI Tract: No bowel dilation. Normal appendix. There is diverticulosis. No changes of diverticulitis. Lymph Nodes: No lymphadenopathy. Mesentery/peritoneum: No ascites. Vasculature: Arterial atherosclerotic disease without aneurysm. Pelvis: No mass or ascites. Bones and Soft Tissues: Bilateral fat-containing inguinal hernias. Degenerative changes are present in the spine. Lower thorax: Bibasilar atelectasis. Pulmonary nodules are stable and do not require follow-up. Coronary atherosclerosis. Harvest Crew Supervisor (topogram) images: No additional findings. IMPRESSION: Probable calculus in the distal right ureter with associated inflammation and hydroureteronephrosis. Correlate with urinalysis for evidence of infection. Otherwise similar appearance of the right kidney and right ureter. This report was electronically signed by Honorio Feliciano MD 10/21/2021 5:43 PM Reported By: Honorio Feliciano Signed By: Honorio Feliciano Normal [facility] Nayan Sprague 10-21-2021 EMERGENCY PHYSICIAN REPORT This is a preliminary report only, as the practitioner review and authentication has not occurred. [facility]OR[facility] : FlexChartData Event Time: 10/21/2021 16:30 Status: Signed [facility] Felipa Lima [[id number]] Attending Physician 65 / F / 1955 Chart (V2b) Chart created at 10/21/2021 16:21 by Huseyin Jerry Chart closed at 10/21/2021 17:49 Entry in Emergency Department at 10/21/2021 13:47 Patient Name: Felipa Lima Record Number: [id number] Date: 10/21/2021 16:21 Entered Department at: 10/21/2021 13:47 Patient Seen at: 10/21/2021 16:20 Historian: Patient PCP: KANDACE KATZ Chief Complaint:PT REPORTS RUQ ABDOMINAL PAIN AND RIGHT FLANK PAIN. PT HAD A CT OF THE ABDOMEN DONE AND WAS TOLD TO COME HERE FOR RIGHT KIDNEY INFLAMMATION. PT WAS TOLD HER URETHRA WAS BLOCKED. Triage Note reviewed and Initial Vital Signs reviewed. Temperature: 98.4 F (36.9 C). Pulse: 67. Respiratory Rate: 14. Blood-pressure: 176/78. Oxygen Saturation: 97%. History of Present Illness: Patient is a 65-year-old female sent over to [facility] to be admitted secondary to inflammation and obstruction of the right kidney. Patient was being seen by a surgeon out in [place], she had some fullness in her right upper quadrant region that was to be evaluated. CT scan was obtained of this region [facility] PATIENT NAME: FELIPA LIMA [facility] 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 Incidentally patient was found to have inflammatory and obstructive issues with the right kidney. Dedicated CT of the abdomen and pelvis was performed today and confirmed inflammation and obstruction of the right kidney. Patient was advised to come to [facility] emergency department to be admitted and treated for this issue. Reportedly patients credit control assistant and urologist were called with these results. Patient denies any pain or fever, denies any nausea or vomiting, denies any urinary symptoms. Patient denies any acute physical complaints at this time. Review of Systems. All other systems reviewed and negative.. Past History, Medications, Allergies, Social History and Family History reviewed in nurses note. Medications: Reviewed RN Note. Allergies: Reviewed RN Note Codeine(Get Sick), Morphine(Get Sick), CT Dye(Rash) Codeine(Get Sick), Morphine(Get Sick), CT Dye(Rash) Social History: Reviewed RN Note. Family History: Reviewed RN Note Physical Examination: General: Alert; Oriented x 3. NAD HEENT: Eyes: PERRL; . Oropharynx / Throat: Moist mucous membranes. Respiratory: No Resp Distress and Normal Breath Sounds Cardio-Vascular: No murmur, No rub and RRR Abdomen: Normal Bowel Sounds, No Organomegaly, Non-tender and Soft; negative for Guarding; Non-distended. Back: No CVA tenderness and Non-tender Extremity: No edema and Normal Equal pulses; Cap refill andlt; 2 sec. Neurological: Alert, Oriented X3 Skin: No rash, No Petechiae, Warm and Dry Psychological: Mood/Affect Normal CBC W/DIFF, information as of 10/21/2021, 3:21 pm 92.3 / 12.5 / 6.3 andgt;------andlt; 171 [facility] PATIENT NAME: FELIPA LIMA [address] [facility] [address] MEDICAL REC #: [id number] [place] [address] EMERGENCY DEPARTMENT REPORT EMERGENCY DEPARTMENT PHYSICIAN / 38.5 / N:72.6 BASO ABS: 0.00 K/Cu Mm; BASOPHIL %: 0.6 %; EOS ABS: 0.20 K/Cu Mm; EOSINOPHIL %: 3.5 %; IMMATR GRAN ABS: 0.00 K/Cu Mm; IMMATURE GRAN %: 0.2 %; LYMPH %: 15.9 %; LYMPH ABS: 1.00 K/Cu Mm; MCHC: 32.5 Gm/Dl; MONO ABS: 0.50 K/Cu Mm; MONOCYTE %: 7.2 %; MPV: 10.2; NEUTROPHIL ABS: 4.60 K/Cu Mm; NRBC: 0.0 %; RBC: 4.17 M/Cu Mm; RDW: 12.7 BMP, information as of 10/21/2021, 3:21 pm 143 --------+--------+-------- andlt; 84 Anion Gap = 6 4.7 BUN/CREA: 21; CALCIUM TOTAL: 8.9 Mg/Dl UA COMPLETE, information as of 10/21/2021, 3:52 pm + +---------+---- -----+---------+---------+ -------- + + +---------+---- -----+---------+---------+ -------- + + +---------+---- -----+---------+---------+ -------- + + +---------+---- -----+---------+---------+ -------- + + +---------+---- -----+---------+---------+ -------- + MUCUS: Trace; SQUAMOUS EPIS: 3 Epi/Hpf; UA BACTERIA: Trace /Hpf LIVER, information as of 10/21/2021, 3:21 pm A/G RATIO: 1.1; ALBUMIN: 3.3 Gm/Dl; ALK PHOS: 86 U/L; BILI DIRECT: Less Than 0.1 Mg/Dl; BILI TOTAL: 0.20 [facility] PATIENT NAME: FELIPA LIMA [facility] [address] MEDICAL REC #: [id number] [place] [address] EMERGENCY DEPARTMENT REPORT KELLY (more content not included)... Normal [facility] FLUOROSCOPY IN OR/PAIN MGTon 10-21-2021 FLUOROSCOPY IN OR/PAIN MGT FLUOROSCOPY IN OR/PAIN MGT Ordering Physician: Marivel Solano MD FLUOROSCOPY Clinical Statement: Hydroureteronephrosis. Cystoscopy with right nephroureteral stent placement. Comparison: CT 10/21/2021. FINDINGS: Fluoroscopic images are consistent with the above-mentioned procedure. Four total fluoroscopic images were saved. A total of 18.5 seconds fluoroscopy time was utilized. Please see the ordering clinician's report for full details. IMPRESSION: Documentation of fluoroscopy. This report was electronically signed by Sid Keller MD 10/22/2021 3:46 PM Reported By: SID KELLER MD Signed By: SID KELLER MD [facility] GFR ESTon 10-21-2021 IF AMER 38 [facility] Comment on above: Order Comment: Campu s: M Performed By: #### L 500.20299, L500.45054, L500.62770, L500.75787 #### [facility] [address] [place] [address] IF non-AFR AMER 31 [facility] Comment on above: Order Comment: Campu s: M Performed By: #### L 500.71951, L500.36011, L500.69168, L500.33809 #### [facility] [address] [place] [address] HP.[facility].ADM 10-21-2021 Admission-H&P [facility] HP.IMS.ADM [facility] Patient Name: FELIPA LIMA [address] [place] [address] Date of : [address] [place], [place] [address] Unit Number: [id number] Admission-HandP Patient Status: ADM IN Attending Doctor: Mari Chilel MD Service Date: 10/21/211738 History of Present Illness Chief Complaint/Present Illness: Hydronephrosis History of Present Illness Patient is a 65-year-old female with past medical history significant for CKD who presents to [facility] for abnormal CT scan. Patient was seeing the surgeon in [place] for right upper quadrant fullness. CT scan was obtained yesterday and found to be a lipoma, incidentally found to have inflammatory and obstructive issues with the right kidney. Dedicated CT of the abdomen and pelvis was performed today and patient was found to have inflammation and obstruction of the right kidney. Patient was instructed to come to the emergency department. ER physician at [facility] spoke with patient's urologist Dr. Solano who states patient has a history of previous renal abscess last year, he recommends patient be admitted with IV antibiotics and he will see her on consult. Patient denies fever, chills , chest pain, shortness of breath, abdominal pain, vomiting, diarrhea, or urinary symptoms. She does report occasional nausea over the last week. In the emergency room, urinalysis shows straw-colored urine with RBC and trace bacteria. CBC unremarkable, BUN 35, creatinine 1.66 which appears to be baseline. Patient reports a history of CKD stage III, follows with Dr. Nickerson CT abdomen/pelvis shows probable calculus in the distal right ureter with associated inflammation and hydroureteronephrosis correlate with urinalysis for evidence of infection. Calcifications associated with the distal right ureter are again noted with some more proximal calcifications, measuring up to 5 mm favored to be within the ureter. There is worsened upstream hydroureteronephrosis. Bilateral cortical thinning is again demonstrated in the right kidney where there are renal cystic lesions with dependent calculi. Past Medical/Surgical Hx Past Medical History PUD GERD CKD Psoriasis Nephrolithiasis Past Surgical History What sounds like a Gadiel patch Lithotripsy Nephrostomy tube placement on the right Hysterectomy DandC Family/Social History Family History FATHER, , Age 82; Cause: Old age. FH: diabetes mellitus BROTHER FH: colon cancer MOTHER, , Age 80; Cause: Dementia. FH: CHF (congestive heart failure) FH: hypertension Family Hx Other/Comment Family history reviewed Substances Denies use of: Alcohol, Tobacco, Recreational Drugs. 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 Advance Directives Advance Directives Full Code Allergies/Home Medications Allergies Coded Allergies: IODINATED CONTRAST MEDIA (From CONTRAST MEDIA) (Mild, RASH 04/15/20) LATEX (08/11/20) WOOL (04/15/20) CODEINE (Mild, NAUESEA and VOMITING 12/22/19) MORPHINE (Mild, NAUESEA and VOMITING 12/22/19) Home Medications Acetaminophen* (Tylenol 500MG Tab*) 500 MG TABLET 500 MG PO Q4HPRN PRN PAIN, Ref 0 ( Reported) Entered as Reported by MIKO SEGUNDO on 04/15/20 1740 Last Action: Reviewed on 10/22/216 by KYM TORRES Allopurinol* (Zyloprim 100MG Tab*) 100 MG TABLET 100 MG PO QDAY, Ref 0 (Reported) Entered as Reported by KYM TORRES on 10/22/2113 Last Action: Reviewed on 10/22/2113 by KYM TORRES Cholecalciferol (Vitamin D3)* (Vitamin D3 1000 Unit tab*) 25 MCG TABLET 5,000 UNIT PO QDAY, Ref 0 (Reported) Entered as Reported by KYM TORRES on 10/22/2112 Last Action: Reviewed on 10/22/2112 by KYM TORRES Ferrous Sulfate* (Feosol 325MG Tab EC*) 325 MG TABLET 325 MG PO TID, Ref 0 (Reported) Entered as Reported by MIKO SEGUNDO on 04/15/20 1741 Last Action: Reviewed on 10/22/215 by KYM TORRES Pantoprazole* (Protonix 40MG Tab*) 40 MG TABLET.DR 40 MG PO QDAYAC, Ref 0 (Reported) Entered as Reported by ADA ELIZALDE on 12/22/19 1835 Last Action: Reviewed on 10/22/2112 by KYM TORRES potassium CHLORIDE* (K-Dur 10MEQ Tab.sa*) (Unknown Strength) TABLET.ER (Unknown Dose) PO TID, Ref 0 (Reported) Entered as Reported by FERNANDO OLIVARES on 08/09/20 1554 Last Action: Reviewed on 10/22/2112 by KYM TORRES Sodium BICARBonate* (Sodium BICARBonate 650MG TAB*) 650 MG TABLET 650 MG PO TID, Ref 0 (Reported) Entered as Reported by KYM TORRES on 10/22/219 Last Action: Reviewed on 10/22/2112 by KYM TORRES Discontinued Medications Cholecalciferol (Vitamin D3) (Vitamin D 1000 Unit Tab) 1,000 UNIT TABLET 5,000 UNIT PO MWF, Ref 0 (Reported) Discontinued reason: DC By Physician Last Action: Discontinued on 10/22/2112 by KYM TORRES Review of Systems ROS: Other Constitutional - [Denies any fever, chills, fatigue.] (more content not included)... Normal [facility] LIPASEon 10-21-2021 Lipase [Catalytic activity/Vol] 36 U/L Normal 12-60 [facility] Comment on above: Order Comment: Jose Graves Result Comment: NOTE NEW NORMAL RANGE DUE TO REAGENT CHANGE Performed By: #### L 500.48264, L500.17478, L500.20225, L500.48682 #### [facility] [place] [address] LIVERon 10-21-2021 Albumin [Mass/Vol] 3.3 g/dL Normal 3.2-5.0 [facility] Comment on above: Order Comment: Campu s: M Performed By: #### L 500.03996, L500.40633, L500.36171, L500.12236 #### [facility] [address] [place] [address] Albumin/Globulin [Mass ratio] 1.1 {ratio} Normal 0.8-2.0 [facility] Comment on above: Order Comment: Campu s: M Performed By: #### L 500.08640, L500.46959, L500.35482, L500.75882 #### [facility] [address] [place] [address] ALK PHOS 86 U/L Normal 45-117 [facility] Comment on above: Order Comment: Campu s: M Performed By: #### L 500.04217, L500.52680, L500.65480, L500.13048 #### [facility] [address] [place] [address] ALT [Catalytic activity/Vol] 12 U/L Low 13-61 [facility] Comment on above: Order Comment: Campu s: M Result Comment: RESU LTS MAY BE FALSELY DEPRESSED AFTER THE ADMINISTRATION OF SULFASALAZINE AND/OR SULFAPYRIDINE. Performed By: #### L 500.85345, L500.25225, L500.81237, L500.77236 #### [facility] [place] [address] AST [Catalytic activity/Vol] 15 U/L Normal 8-34 [facility] Comment on above: Order Comment: Campu s: M Result Comment: RESU LTS MAY BE FALSELY DEPRESSED AFTER THE ADMINISTRATION OF SULFASALAZINE AND/OR SULFAPYRIDINE. Performed By: #### L 500.05588, L500.69450, L500.07306, L500.68177 #### [facility] [address] [place] [address] BILI DIRECT LESS THAN 0.1 Normal 0.00-0.36 [facility] Comment on above: Order Comment: Campu s: M Result Comment: NOTE NEW NORMAL RANGE DUE TO REAGENT CHANGE Performed By: #### L 500.92225, L500.23429, L500.99335, L500.79417 #### [facility] [address] [place] [address] BILI TOTAL 0.20 MG/DL Normal 0.2-1.0 [facility] Comment on above: Order Comment: Campu s: M Performed By: #### L 500.26633, L500.10437, L500.72053, L500.31504 #### [facility] [address] [place] [address] Globulin (S) [Mass/Vol] 3.0 g/dL Normal 2.2-4.2 [facility] Comment on above: Order Comment: Campu s: M Performed By: #### L 500.12647, L500.27555, L500.60772, L500.02412 #### [facility] [address] [place] [address] Protein [Mass/Vol] 6.3 g/dL Normal 6.0-8.5 [facility] Comment on above: Order Comment: Campu s: M Performed By: #### L 500.42551, L500.04325, L500.07239, L500.60547 #### [facility] [address] [place] [address] [id number] 10-21-2021 SARS-CoV-2 (COVID-19) RNA GIOVANNA+probe Ql (Unsp spec) Negative Invalid Interpretation Code Negative [facility] Comment on above: Order Comment: Campu s: M Result Comment: RESU LTS CALLED TO AND READ BACK BY DUNIA CASTRO AT 1932 10/21/21 BY YARELY PATEL Negative results do not preclude SARS-CoV-2 infection and should not be used as the sole basis for treatment or other patient management decisions. Negative results must be combined with clinical observation, patient history, and epidemiological information. This test was performed by PCR. Performed By: #### L 500.57014 #### [facility] [address] [place] [address] UA COMPLETEon 10-21-2021 Color (U) Straw Normal [facility] Comment on above: Order Comment: Campu s: M Performed By: #### L 600.06003 #### [facility] [address] [place] [address] Glucose (U) [Mass/Vol] Negative Normal NORMAL [facility] Comment on above: Order Comment: Campu s: M Performed By: #### L 600.78307 #### [facility] [address] [place] [address] Mucus Ql (Urine sed) TRACE Normal NEGATIVE [facility] Comment on above: Order Comment: Campu s: M Performed By: #### L 600.73220 #### [facility] [address] [place] [address] SQUAMOUS EPIS 3 EPI/HPF Normal 0-5 [facility] Comment on above: Order Comment: Campu s: M Performed By: #### L 600.94838 #### [facility] [address] [place] [address] UA APPEARANCE Clear Normal CLEAR [facility] Comment on above: Order Comment: Campu s: M Performed By: #### L 600.62752 #### [facility] [address] [place] [address] UA BACTERIA TRACE Normal NONE [facility] Comment on above: Order Comment: Campu s: M Performed By: #### L 600.36852 #### [facility] [address] [place] [address] UA BILIRUBIN Negative Normal NEGATIVE [facility] Comment on above: Order Comment: Campu s: M Performed By: #### L 600.23396 #### [facility] [address] [place], [place] [address] UA BLOOD MOD Normal NEGATIVE [facility] Comment on above: Order Comment: Campu s: M Performed By: #### L 600.24028 #### [facility] [address] [place], [place] [address] UA KETONE Negative Normal NEGATIVE [facility] Comment on above: Order Comment: Campu s: M Performed By: #### L 600.90833 #### [facility] [address] [place], [place] [address] UA LK ESTERASE Negative Normal NEGATIVE [facility] Comment on above: Order Comment: Campu s: M Performed By: #### L 600.07555 #### [facility] [address] [place] [address] UA NITRITE Negative Normal NEGATIVE [facility] Comment on above: Order Comment: Campu s: M Performed By: #### L 600.74938 #### [facility] [address] [place] [address] UA PH 6.0 Normal 5-6 [facility] Comment on above: Order Comment: Campu s: M Performed By: #### L 600.14931 #### [facility] [address] [place] [address] UA PROTEIN Negative Normal NEGATIVE [facility] Comment on above: Order Comment: Campu s: M Performed By: #### L 600.90540 #### [facility] [address] [place] [address], [place] [address] UA RBC 45 RBC/HPF High 0-3 [facility] Comment on above: Order Comment: Campu s: M Performed By: #### L 600.13552 #### [facility] [address] [place] [address] UA SPEC GRAV 1.013 Normal 1.005-1.030 [facility] Comment on above: Order Comment: Campu s: M Performed By: #### L 600.28048 #### [facility] [address] [place] [address] UA UROBILINOGEN Negative Normal NORMAL [facility] Comment on above: Order Comment: Campu s: M Performed By: #### L 600.70907 #### [facility] [address] [place] [address] UA WBC 4 WBC/HPF Normal 0-5 [facility] Comment on above: Order Comment: Campu s: M Performed By: #### L 600.75570 #### [facility] [address] [place] [address] PTH, [place] 07-05-2021 PTH, Intact 117 pg/mL High 15-65 [facility] Comment on above: Performed By: #### P THI #### [facility] Routine Lab [address] [place], [place] [address] PTH, [place] 01-25-2021 PTH, Intact 73 pg/mL High 15-65 [facility] Comment on above: Performed By: #### P THI #### [facility] [facility] Routine Lab [address], [place] [address] PTH, [place] 10-08-2020 PTH, Intact 57 pg/mL Normal 15-65 [facility] Comment on above: Performed By: #### P THI #### [facility] Routine Lab [address], [place] [address] COVID-19, MOLECULARon 2020 SARS-COV-2 (DIABaileyuRIN) Not Detected Normal Not Detected [facility] Comment on above: Order Comment: : COV ID-19 Lab Test Only (OP in UTM) Tier 2 EGD - Dr. Messi Mae Result Comment: This test was performed under the FDA's Emergency Use Authorization (EUA). Testing was performed using the Simplexa SARS-CoV-2 RT-PCR assay ([employer]) on the [employer] platform. This test has not been approved for use in asymptomatic patients and its performance in this patient population has not been evaluated. Negative results do not rule out the presence of SARS-CoV-2/COVID-19. Fact sheets for this EUA can be found at the following links: For Healthcare Providers: https://www.fda.gov/media/991462/download For Patients: https://www.fda.gov/media/652052/download Performed By: #### L [id number] #### [facility] [address] [place] [address] Vu Metcalf M.D. [id number] COVID-19, MOLECULARon 2019 SARS-COV-2 RNA (SEVERIANO) Not Detected Normal Not Detected [facility] Comment on above: Result Comment: This test was performed under the FDA's Emergency Use Authorization (EUA). Testing was performed using the Дмитрий SARS-CoV-2 assay on the [employer] 6800 System. This test has not been approved for use in asymptomatic patients and its performance in this patient population has not been evaluated. Negative results do not rule out the presence of SARS-CoV-2/COVID-19. Fact sheets for this EUA can be found at the following links: For Healthcare Providers: https://www.fda.gov/media/718663/download For Patients: https://www.fda.gov/media/950928/download Performed By: #### L [id number] #### [facility] [address] [place] [address] Vu Metcalf M.D. [id number] Basic Metabolic Panelon 12-2 Anion gap [Moles/Vol] 16 mmol/L 10 - 2 0 mmol/L [facility] Calcium [Mass/Vol] 7.8 mg/dL Low 8.4 - 10. 2 mg/dL [facility] Chloride [Moles/Vol] 114 mmol/L High 98 - 10 8 mmol/L [facility] Creatinine [Mass/Vol] 1.77 mg/dL High 0.6 - 1.2 mg/dL [facility] GFR/1.73 sq M predicted among non-blacks MDRD (S/P/Bld) [Vol rate/Area] The eGFR should be used for monitoring renal function only and not for medication dosing. [facility] GFR/1.73 sq M.predicted CKD-EPI (S/P/Bld) [Vol rate/Area] 30 Low >=60 mL/min/1.73 m2 [facility] Glucose [Mass/Vol] 118 mg/dL High 65 - 99 mg/dL [facility] HCO3 [Moles/Vol] 17 mmol/L Low 21 - 32 mmol/L [facility] Interpretation and review of laboratory results Abnormal [facility] Potassium [Moles/Vol] 3.5 mmol/L 3.5 - 5.1 mmol/L [facility] Sodium [Moles/Vol] 143 mmol/L 135 - 145 mmol/L [facility] Urea nitrogen [Mass/Vol] 10 mg/dL 8 - 25 mg/dL [facility] Urea nitrogen/Creatinine [Mass ratio] 5.6 mg/mg Low [facility] Basic Metabolic Panelon 05-28 Anion gap [Moles/Vol] 15 mmol/L 10 - 2 0 mmol/L [facility] Calcium [Mass/Vol] 7.7 mg/dL Low 8.4 - 10. 2 mg/dL [facility] Chloride [Moles/Vol] 115 mmol/L High 98 - 10 8 mmol/L [facility] Creatinine [Mass/Vol] 1.62 mg/dL High 0.6 - 1.2 mg/dL [facility] GFR/1.73 sq M predicted among non-blacks MDRD (S/P/Bld) [Vol rate/Area] The eGFR should be used for monitoring renal function only and not for medication dosing. [facility] GFR/1.73 sq M.predicted CKD-EPI (S/P/Bld) [Vol rate/Area] 34 Low >=60 mL/min/1.73 m2 [facility] Glucose [Mass/Vol] 119 mg/dL High 65 - 99 mg/dL [facility] HCO3 [Moles/Vol] 16 mmol/L Low 21 - 32 mmol/L [facility] Interpretation and review of laboratory results Abnormal [facility] Potassium [Moles/Vol] 3.3 mmol/L Low 3.5 - 5.1 mmol/L [facility] Sodium [Moles/Vol] 143 mmol/L 135 - 145 mmol/L [facility] Urea nitrogen [Mass/Vol] 11 mg/dL 8 - 25 mg/dL [facility] Urea nitrogen/Creatinine [Mass ratio] 6.8 mg/mg Low [facility] Phosphoruson 06-22-2019 Interpretation and review of laboratory results Normal [facility] Phosphate [Mass/Vol] 2.9 mg/dL 2.8 - 4 .1 mg/dL [facility] Basic Metabolic Panelon 05-28 Anion gap [Moles/Vol] 13 mmol/L 10 - 2 0 mmol/L [facility] Calcium [Mass/Vol] 8.0 mg/dL Low 8.4 - 10. 2 mg/dL [facility] Chloride [Moles/Vol] 117 mmol/L High 98 - 10 8 mmol/L [facility] Creatinine [Mass/Vol] 1.91 mg/dL High 0.6 - 1.2 mg/dL [facility] GFR/1.73 sq M predicted among non-blacks MDRD (S/P/Bld) [Vol rate/Area] The eGFR should be used for monitoring renal function only and not for medication dosing. [facility] GFR/1.73 sq M.predicted CKD-EPI (S/P/Bld) [Vol rate/Area] 28 Low >=60 mL/min/1.73 m2 [facility] Glucose [Mass/Vol] 118 mg/dL High 65 - 99 mg/dL [facility] HCO3 [Moles/Vol] 21 mmol/L 21 - 32 mmol/L [facility] Interpretation and review of laboratory results Abnormal [facility] Potassium [Moles/Vol] 3.6 mmol/L 3.5 - 5.1 mmol/L [facility] Sodium [Moles/Vol] 147 mmol/L High 135 - 145 mmol/L [facility] Urea nitrogen [Mass/Vol] 15 mg/dL 8 - 25 mg/dL [facility] Urea nitrogen/Creatinine [Mass ratio] 7.9 mg/mg Low [facility] CBCon 06-21-2019 Erythrocyte distribution width (RBC) [Entitic vol] 13.7 % 11.6 - 14.8 % [facility] Hematocrit (Bld) [Volume fraction] 30.2 % Low 36 - 46 % [facility] Hemoglobin (Bld) [Mass/Vol] 9.2 g/dL Low 12 - 16 g/dL [facility] Interpretation and review of laboratory results Abnormal [facility] MCH (RBC) [Entitic mass] 29.0 pg 26 - 34 pg [facility] MCHC (RBC) [Mass/Vol] 30.5 g/dL Low 31 - 37 g/dL [facility] MCV (RBC) [Entitic vol] 95.3 fL 80 - 100 fL [facility] Nucleated RBC (Bld) [#/Vol] 0.00 10*3/uL [facility] Nucleated RBC/100 WBC (Bld) [Ratio] 0.0 % [facility] Platelet mean volume (Bld) [Entitic vol] 10.5 fL 9 - 15.5 fL [facility] Platelets (Bld) [#/Vol] 229 10*3/uL [facility] RBC (Bld) [#/Vol] 3.17 10*6/uL Low [facility] WBC (Bld) [#/Vol] 4.29 10*3/uL Low [facility] Magnesium Levelon 06-21-2019 Interpretation and review of laboratory results Normal [facility] Magnesium [Mass/Vol] 2.1 mg/dL 1.6 - 2 .4 mg/dL [facility] Phosphoruson 06-21-2019 Interpretation and review of laboratory results Abnormal [facility] Phosphate [Mass/Vol] 2.6 mg/dL Low 2.8 - 4 .1 mg/dL [facility] XR UGI With Air Contrast Wit h KUBon 06-21-2019 1. Postsurgical duval ges from recent laparotomy and placement of right upper quadrant peritoneal drainage catheter. Bowel pattern does not appear to be obstructive. 2. Asymmetric elevation/eventration right hemidiaphragm. Small right pleural effusion not excluded. 3. No significant delay in transit of contrast material from the oropharynx into the proximal jejunal segments. Nonspecific prominence of the gastric fold pattern presumably related to partial distention and/or gastritis. 4. No gross leak or extravasation of contrast material noted. SKS/lab Workstation ID: [id number] [facility] EXAMINATION: XR UGI WITH AIR CONTRAST WITH KUB 06/21/2019 12:06 PM HISTORY: ORDERING SYSTEM PROVIDED HISTORY: evaluate for leakage from Gadiel patch repair, TECHNOLOGIST PROVIDED HISTORY: Illness/Other Reason for exam: evaluate for leakage from Gadiel patch repair Encounter Type: Subsequent/Follow-up Additional signs and symptoms: Fluoro dose in mGy: 222.11 ORDERING SYSTEM PROVIDED DIAGNOSIS CODES: K63.1 Bowel perforation (HCC) N20.1 Ureterolithiasis N17.9 VICKI (acute kidney injury) (HCC) N21.1 Urethra, calculus COMPARISON: Supine abdomen 06/18/2019. TECHNIQUE: Overhead cheesemaker helper image was obtained. Spot cheesemaker helper images of the chest and abdomen were obtained. 100 mL of Isovue-370 was given to the patient orally with multiple spot projections of the esophagus, stomach and proximal small bowel obtained. Imaging was performed with the patient supine, semi-upright as well as within the right lateral decubitus position. A total of 50 images were sent for interpretation. FINDINGS: The complete resolution of previously identified contrast material within bowel as compared to prior study. A vertically oriented drain overlaps the right upper quadrant. Pneumobilia is difficult to exclude. Vertically oriented skin closure staple row about the right paraspinal region identified. There are multilevel lower thoracic and lumbar facet arthritic and spondylitic changes superimposed upon DISH identified. Mild mid lumbar dextroscoliotic curvature noted. Osteoarthritic change about both SI joints and hips are noted. Asymmetric elevation of the right hemidiaphragm with right basilar atelectasis noted. Right-sided pleural effusion cannot excluded. Heart size is normal. Contrast flows freely from the oropharynx to the duodenal without significant delay in transit of contrast. Esophageal caliber and course are within normal limits. There is partial opacification and distention of the gastric lumen. The fold pattern appears prominent involving proximal and mid gastric lumen. The contrast extends through the medium into the proximal jejunal segments. No gross leak or extravasation is identified. [facility] Interface, Rad In Fu ji Speechq - 06/21/2019 2:53 PM EST EXAMINATION: XR UGI WITH AIR CONTRAST WITH KUB 06/21/2019 12:06 PM HISTORY: ORDERING SYSTEM PROVIDED HISTORY: evaluate for leakage from Gadiel patch repair, TECHNOLOGIST PROVIDED HISTORY: Illness/Other Reason for exam: evaluate for leakage from Gadiel patch repair Encounter Type: Subsequent/Follow-up Additional signs and symptoms: Fluoro dose in mGy: 222.11 ORDERING SYSTEM PROVIDED DIAGNOSIS CODES: K63.1 Bowel perforation ([facility]) N20.1 Ureterolithiasis N17.9 VICKI (acute kidney injury) ([facility]) N21.1 Urethra, calculus COMPARISON: Supine abdomen 06/18/2019. TECHNIQUE: Overhead cheesemaker helper image was obtained. Spot cheesemaker helper images of the chest and abdomen were obtained. 100 mL of Isovue-370 was given to the patient orally with multiple spot projections of the esophagus, stomach and proximal small bowel obtained. Imaging was performed with the patient supine, semi-upright as well as within the right lateral decubitus position. A total of 50 images were sent for interpretation. FINDINGS: The complete resolution of previously identified contrast material within bowel as compared to prior study. A vertically oriented drain overlaps the right upper quadrant. Pneumobilia is difficult to exclude. Vertically oriented skin closure staple row about the right paraspinal region identified. There are multilevel lower thoracic and lumbar facet arthritic and spondylitic changes superimposed upon DISH identified. Mild mid lumbar dextroscoliotic curvature noted. Osteoarthritic change about both SI joints and hips are noted. Asymmetric elevation of the right hemidiaphragm with right basilar atelectasis noted. Right-sided pleural effusion cannot excluded. Heart size is normal. Contrast flows freely from the oropharynx to the duodenal without significant delay in transit of contrast. Esophageal caliber and course are within normal limits. There is partial opacification and distention of the gastric lumen. The fold pattern appears prominent involving proximal and mid gastric lumen. The contrast extends through the medium into the proximal jejunal segments. No gross leak or extravasation is identified. IMPRESSION: 1. Postsurgical changes from recent laparotomy and placement of right upper quadrant peritoneal drainage catheter. Bowel pattern does not appear to be obstructive. 2. Asymmetric elevation/eventration right hemidiaphragm. Small right pleural effusion not excluded. 3. No significant delay in transit of contrast material from the oropharynx into the proximal jejunal segments. Nonspecific prominence of the gastric fold pattern presumably related to partial distention and/or gastritis. 4. No gross leak or extravasation of contrast material noted. SKS/lab Workstation ID: [id number] [facility] Basic Metabolic Panelon 12- Anion gap [Moles/Vol] 11 mmol/L 10 - 2 0 mmol/L [facility] Calcium [Mass/Vol] 8.2 mg/dL Low 8.4 - 10. 2 mg/dL [facility] Chloride [Moles/Vol] 118 mmol/L High 98 - 10 8 mmol/L [facility] Creatinine [Mass/Vol] 2.05 mg/dL High 0.6 - 1.2 mg/dL [facility] GFR/1.73 sq M predicted among non-blacks MDRD (S/P/Bld) [Vol rate/Area] The eGFR should be used for monitoring renal function only and not for medication dosing. [facility] GFR/1.73 sq M.predicted CKD-EPI (S/P/Bld) [Vol rate/Area] 25 Low >=60 mL/min/1.73 m2 [facility] Glucose [Mass/Vol] 130 mg/dL High 65 - 99 mg/dL [facility] HCO3 [Moles/Vol] 22 mmol/L 21 - 32 mmol/L [facility] Interpretation and review of laboratory results Abnormal [facility] Potassium [Moles/Vol] 3.3 mmol/L Low 3.5 - 5.1 mmol/L [facility] Sodium [Moles/Vol] 148 mmol/L High 135 - 145 mmol/L [facility] Urea nitrogen [Mass/Vol] 19 mg/dL 8 - 25 mg/dL [facility] Urea nitrogen/Creatinine [Mass ratio] 9.3 mg/mg Low [facility] CBCon 06-20-2019 Erythrocyte distribution width (RBC) [Entitic vol] 14.2 % 11.6 - 14.8 % [facility] Hematocrit (Bld) [Volume fraction] 29.8 % Low 36 - 46 % [facility] Hemoglobin (Bld) [Mass/Vol] 9.2 g/dL Low 12 - 16 g/dL [facility] Interpretation and review of laboratory results Abnormal [facility] MCH (RBC) [Entitic mass] 29.5 pg 26 - 34 pg [facility] MCHC (RBC) [Mass/Vol] 30.9 g/dL Low 31 - 37 g/dL [facility] MCV (RBC) [Entitic vol] 95.5 fL 80 - 100 fL [facility] Nucleated RBC (Bld) [#/Vol] 0.00 10*3/uL [facility] Nucleated RBC/100 WBC (Bld) [Ratio] 0.0 % [facility] Platelet mean volume (Bld) [Entitic vol] 10.6 fL 9 - 15.5 fL [facility] Platelets (Bld) [#/Vol] 245 10*3/uL [facility] RBC (Bld) [#/Vol] 3.12 10*6/uL Low [facility] ealt WBC (Bld) [#/Vol] 5.32 10*3/uL [facility] ealth Imm/Pathon 06-20-2019 Bacteria identified Cx [facility]Bld) [facility]-20-2019 Interpretation and review of laboratory results Normal [facility] Magnesium [Mass/Vol] 1.9 mg/dL 1.6 - 2 .4 mg/dL [facility] Basic Metabolic Panelon 05-28 Anion gap [Moles/Vol] 12 mmol/L 10 - 2 0 mmol/L [facility] Calcium [Mass/Vol] 8.3 mg/dL Low 8.4 - 10. 2 mg/dL [facility] Chloride [Moles/Vol] 117 mmol/L High 98 - 10 8 mmol/L [facility] Creatinine [Mass/Vol] 2.07 mg/dL High 0.6 - 1.2 mg/dL [facility] GFR/1.73 sq M predicted among non-blacks MDRD (S/P/Bld) [Vol rate/Area] The eGFR should be used for monitoring renal function only and not for medication dosing. [facility] GFR/1.73 sq M.predicted CKD-EPI (S/P/Bld) [Vol rate/Area] 25 Low >=60 mL/min/1.73 m2 [facility] Glucose [Mass/Vol] 126 mg/dL High 65 - 99 mg/dL [facility] HCO3 [Moles/Vol] 21 mmol/L 21 - 32 mmol/L [facility] Interpretation and review of laboratory results Abnormal [facility] Potassium [Moles/Vol] 3.6 mmol/L 3.5 - 5.1 mmol/L [facility] Comment on above: Slightly Hemolyzed Sodium [Moles/Vol] 146 mmol/L High 135 - 145 mmol/L [facility] Urea nitrogen [Mass/Vol] 24 mg/dL 8 - 25 mg/dL [facility] Urea nitrogen/Creatinine [Mass ratio] 11.6 mg/mg [facility] CBCon 06-19-2019 Erythrocyte distribution width (RBC) [Entitic vol] 14.3 % 11.6 - 14.8 % [facility] Hematocrit (Bld) [Volume fraction] 29.1 % Low 36 - 46 % [facility] Hemoglobin (Bld) [Mass/Vol] 9.2 g/dL Low 12 - 16 g/dL [facility] Interpretation and review of laboratory results Abnormal [facility] MCH (RBC) [Entitic mass] 29.5 pg 26 - 34 pg [facility] MCHC (RBC) [Mass/Vol] 31.6 g/dL 31 - 37 g/dL [facility] MCV (RBC) [Entitic vol] 93.3 fL 80 - 100 fL [facility] Nucleated RBC (Bld) [#/Vol] 0.00 10*3/uL [facility] Nucleated RBC/100 WBC (Bld) [Ratio] 0.0 % [facility] Platelet mean volume (Bld) [Entitic vol] 10.7 fL 9 - 15.5 fL [facility] Platelets (Bld) [#/Vol] 243 10*3/uL [facility] RBC (Bld) [#/Vol] 3.12 10*6/uL Low [facility] ealth WBC (Bld) [#/Vol] 5.92 10*3/uL [facility] H. pylori Antigen, Stoolon 1 08-20-2018 H. pylori Ag IA Ql (Stl) Negative Negative [facility] Comment on above: Test Performed by: [facility] [place] [address] Data Integration Architect: Brad Coley M.D. Ph.D.; CLIA# [id number] Basic Metabolic Panelon 12-2 Anion gap [Moles/Vol] 12 mmol/L 10 - 2 0 mmol/L [facility] Calcium [Mass/Vol] 8.2 mg/dL Low 8.4 - 10. 2 mg/dL [facility] Chloride [Moles/Vol] 115 mmol/L High 98 - 10 8 mmol/L [facility] Creatinine [Mass/Vol] 2.38 mg/dL High 0.6 - 1.2 mg/dL [facility] GFR/1.73 sq M predicted among non-blacks MDRD (S/P/Bld) [Vol rate/Area] The eGFR should be used for monitoring renal function only and not for medication dosing. [facility] GFR/1.73 sq M.predicted CKD-EPI (S/P/Bld) [Vol rate/Area] 21 Low >=60 mL/min/1.73 m2 [facility] Glucose [Mass/Vol] 142 mg/dL High 65 - 99 mg/dL [facility] HCO3 [Moles/Vol] 21 mmol/L 21 - 32 mmol/L [facility] Interpretation and review of laboratory results Abnormal [facility] Potassium [Moles/Vol] 4.4 mmol/L 3.5 - 5.1 mmol/L [facility] Sodium [Moles/Vol] 144 mmol/L 135 - 145 mmol/L [facility] Urea nitrogen [Mass/Vol] 33 mg/dL High 8 - 25 mg/dL [facility] Urea nitrogen/Creatinine [Mass ratio] 13.9 mg/mg [facility] CBCon 06-18-2019 Erythrocyte distribution width (RBC) [Entitic vol] 14.6 % 11.6 - 14.8 % [facility] Hematocrit (Bld) [Volume fraction] 29.1 % Low 36 - 46 % [facility] Hemoglobin (Bld) [Mass/Vol] 9.2 g/dL Low 12 - 16 g/dL [facility] Interpretation and review of laboratory results Abnormal [facility] MCH (RBC) [Entitic mass] 29.2 pg 26 - 34 pg [facility] MCHC (RBC) [Mass/Vol] 31.6 g/dL 31 - 37 g/dL [facility] MCV (RBC) [Entitic vol] 92.4 fL 80 - 100 fL [facility] Nucleated RBC (Bld) [#/Vol] 0.00 10*3/uL [facility] Nucleated RBC/100 WBC (Bld) [Ratio] 0.0 % [facility] Platelet mean volume (Bld) [Entitic vol] 10.6 fL 9 - 15.5 fL [facility] Platelets (Bld) [#/Vol] 229 10*3/uL [facility] RBC (Bld) [#/Vol] 3.15 10*6/uL Low [facility] ealt WBC (Bld) [#/Vol] 7.00 10*3/uL [facility] ealth XR ABDOMEN 1 VIEWon 06-18-20 19 Interface, Rad In Fu ji Speechq - 06/18/2019 10:42 PM EST EXAMINATION: XR ABDOMEN /KUB/FLAT PLATE/1 VIEW 06/18/2019 8:53 pm HISTORY: ORDERING SYSTEM PROVIDED HISTORY: eval contrast, TECHNOLOGIST PROVIDED HISTORY: Illness/Other Reason for exam: eval contrast Cancer History: . Surgery, RadiationHistory: y Encounter Type: Unknown Additional signs and symptoms: . ORDERING SYSTEM PROVIDED DIAGNOSIS CODES: K63.1 Bowel perforation (HCC) N20.1 Ureterolithiasis N17.9 VICKI (acute kidney injury) (HCC) N21.1 Urethra, calculus COMPARISON: Abdominal x-ray dated 06/15/2019. FINDINGS: Nasogastric tube is seen in place with distal tip projecting over the expected location of the proximal stomach. The side port is seen at the level of the gastroesophageal junction. Advancing 8-10 cm is recommended. Oral contrast is seen throughout the colon, including the rectum. No air-filled distended loops of bowel are seen to suggest bowel obstruction. Multiple skin grecia are seen projecting over the right abdomen. A surgical drain is also seen projecting over the right upper abdomen. IMPRESSION: Nasogastric tube is seen in place with distal tip projecting over the expected location of the proximal stomach. Advancing at least 8-10 cm is recommended. Contrast is seen opacifying the entire colon, including the rectum. [employer] Workstation ID: [id number] [facility] EXAMINATION: XR ABDO MEN /KUB/FLAT PLATE/1 VIEW 06/18/2019 8:53 pm HISTORY: ORDERING SYSTEM PROVIDED HISTORY: eval contrast, TECHNOLOGIST PROVIDED HISTORY: Illness/Other Reason for exam: eval contrast Cancer History: . Surgery, RadiationHistory: y Encounter Type: Unknown Additional signs and symptoms: . ORDERING SYSTEM PROVIDED DIAGNOSIS CODES: K63.1 Bowel perforation (HCC) N20.1 Ureterolithiasis N17.9 VICKI (acute kidney injury) (HCC) N21.1 Urethra, calculus COMPARISON: Abdominal x-ray dated 06/15/2019. FINDINGS: Nasogastric tube is seen in place with distal tip projecting over the expected location of the proximal stomach. The side port is seen at the level of the gastroesophageal junction. Advancing 8-10 cm is recommended. Oral contrast is seen throughout the colon, including the rectum. No air-filled distended loops of bowel are seen to suggest bowel obstruction. Multiple skin grecia are seen projecting over the right abdomen. A surgical drain is also seen projecting over the right upper abdomen. [facility] Nasogastric tube is seen in place with distal tip projecting over the expected location of the proximal stomach. Advancing at least 8-10 cm is recommended. Contrast is seen opacifying the entire colon, including the rectum. [employer] Workstation ID: [id number] [facility] XR UGI With KUBon 06-18-2019 [facility] 3:59 PM EST EXAMINATION: XR UGI WITH KUB 06/15/2019 11:12 PM HISTORY: ORDERING SYSTEM PROVIDED HISTORY: r/o for duodenal perforation, TECHNOLOGIST PROVIDED HISTORY: Illness/Other Reason for exam: r/o for duodenal perforation Encounter Type: Unknown Additional signs and symptoms: r/o for duodenal perforation Fluoro dose in mGy: 178 ORDERING SYSTEM PROVIDED DIAGNOSIS CODES: K63.1 Bowel perforation (HCC) N20.1 Ureterolithiasis COMPARISON: CT of the abdomen and pelvis, 06/15/2019, from an outside institution. TECHNIQUE: The patient was premedicated for contrast reaction per the emergent protocol. Preliminary cheesemaker helper view of the abdomen and pelvis was acquired prior to the exam. Water-soluble contrast was administered orally under fluoroscopy. Multiple spot images of the upper gastrointestinal tract were acquired in various projections. FINDINGS: Preliminary cheesemaker helper view reveals a nonspecific bowel gas pattern with no signs of obstruction or pneumatosis. There is lucency under the left hemidiaphragm compatible with pneumoperitoneum, increased compared to the prior CT. The distal esophagus is unremarkable in course, caliber, contour and appearance. There is timely passage of contrast into the stomach and small bowel. The stomach is unremarkable in contour and appearance with no definite mucosal abnormality. There is free flow of contrast into the duodenum with no signs of obstruction. There is large volume of extraluminal contrast extravasation from the superolateral aspect of the 1st segment of the duodenum tracking towards the kathy hepatis. There is mucosal thickening and irregularity of the 1st and 2nd segments of the duodenum. No signs of obstruction. Note: Critical findings discussed with Dr. Garcia at the time of the procedure. IMPRESSION: 1. Perforation of the first segment of the duodenum with extraluminal contrast extravasation tracking towards the kathy hepatis. 2. Pneumoperitoneum, increased compared to the prior CT of 06/15/2019. [employer] Workstation ID: [id number] [facility] EXAMINATION: XR UGI WITH KUB 06/15/2019 11:12 PM HISTORY: ORDERING SYSTEM PROVIDED HISTORY: r/o for duodenal perforation, TECHNOLOGIST PROVIDED HISTORY: Illness/Other Reason for exam: r/o for duodenal perforation Encounter Type: Unknown Additional signs and symptoms: r/o for duodenal perforation Fluoro dose in mGy: 178 ORDERING SYSTEM PROVIDED DIAGNOSIS CODES: K63.1 Bowel perforation (HCC) N20.1 Ureterolithiasis COMPARISON: CT of the abdomen and pelvis, 06/15/2019, from an outside institution. TECHNIQUE: The patient was premedicated for contrast reaction per the emergent protocol. Preliminary cheesemaker helper view of the abdomen and pelvis was acquired prior to the exam. Water-soluble contrast was administered orally under fluoroscopy. Multiple spot images of the upper gastrointestinal tract were acquired in various projections. FINDINGS: Preliminary cheesemaker helper view reveals a nonspecific bowel gas pattern with no signs of obstruction or pneumatosis. There is lucency under the left hemidiaphragm compatible with pneumoperitoneum, increased compared to the prior CT. The distal esophagus is unremarkable in course, caliber, contour and appearance. There is timely passage of contrast into the stomach and small bowel. The stomach is unremarkable in contour and appearance with no definite mucosal abnormality. There is free flow of contrast into the duodenum with no signs of obstruction. There is large volume of extraluminal contrast extravasation from the superolateral aspect of the 1st segment of the duodenum tracking towards the kathy hepatis. There is mucosal thickening and irregularity of the 1st and 2nd segments of the duodenum. No signs of obstruction. Note: Critical findings discussed with Dr. Garcia at the time of the procedure. [facility] 1. Perforation of th e first segment of the duodenum with extraluminal contrast extravasation tracking towards the kathy hepatis. 2. Pneumoperitoneum, increased compared to the prior CT of 06/15/2019. [facility] Workstation ID: [id number] [facility] Basic Metabolic Panelon 05-28 Anion gap [Moles/Vol] 14 mmol/L 10 - 2 0 mmol/L [facility] Calcium [Mass/Vol] 7.8 mg/dL Low 8.4 - 10. 2 mg/dL [facility] Chloride [Moles/Vol] 113 mmol/L High 98 - 10 8 mmol/L [facility] Creatinine [Mass/Vol] 2.88 mg/dL High 0.6 - 1.2 mg/dL [facility] GFR/1.73 sq M predicted among non-blacks MDRD (S/P/Bld) [Vol rate/Area] The eGFR should be used for monitoring renal function only and not for medication dosing. [facility] GFR/1.73 sq M.predicted CKD-EPI (S/P/Bld) [Vol rate/Area] 17 Low >=60 mL/min/1.73 m2 [facility] Glucose [Mass/Vol] 105 mg/dL High 65 - 99 mg/dL [facility] HCO3 [Moles/Vol] 15 mmol/L Low 21 - 32 mmol/L [facility] Interpretation and review of laboratory results Abnormal [facility] Potassium [Moles/Vol] 3.9 mmol/L 3.5 - 5.1 mmol/L [facility] Sodium [Moles/Vol] 138 mmol/L 135 - 145 mmol/L [facility] Urea nitrogen [Mass/Vol] 44 mg/dL High 8 - 25 mg/dL [facility] Urea nitrogen/Creatinine [Mass ratio] 15.3 mg/mg [facility] CBCon 06-17-2019 Erythrocyte distribution width (RBC) [Entitic vol] 14.3 % 11.6 - 14.8 % [facility] Hematocrit (Bld) [Volume fraction] 27.8 % Low 36 - 46 % [facility] Hemoglobin (Bld) [Mass/Vol] 9.2 g/dL Low 12 - 16 g/dL [facility] Interpretation and review of laboratory results Abnormal [facility] MCH (RBC) [Entitic mass] 30.0 pg 26 - 34 pg [facility] MCHC (RBC) [Mass/Vol] 33.1 g/dL 31 - 37 g/dL [facility] MCV (RBC) [Entitic vol] 90.6 fL 80 - 100 fL [facility] Nucleated RBC (Bld) [#/Vol] 0.00 10*3/uL [facility] Nucleated RBC/100 WBC (Bld) [Ratio] 0.0 % [facility] Platelet mean volume (Bld) [Entitic vol] 10.4 fL 9 - 15.5 fL [facility] Platelets (Bld) [#/Vol] 216 10*3/uL [facility] RBC (Bld) [#/Vol] 3.07 10*6/uL Low [facility] eah WBC (Bld) [#/Vol] 8.69 10*3/uL [facility] ealth ECG 12-LEADon 06-17-2019 Atrial Rate 67 BPM [facility] P Castine 38 degrees [facility] P-R Interval 150 ms [facility] Q-T Interval 404 ms [facility] QRS Duration 84 ms [facility] QTC Calculation (Bezet) 426 ms [facility] R Castine -13 degrees [facility] T Castine 34 degrees [facility] Ventricular Rate 67 BPM [facility] Normal sinus rhythm Low voltage QRS Borderline ECG Confirmed by Sherif Cervantes M.D. ([id number]) on 06/17/2019 10:14:10 PM [facility] Atrial Rate 68 BPM [facility] P Castine 42 degrees [facility] P-R Interval 146 ms [facility] Q-T Interval 404 ms [facility] QRS Duration 86 ms [facility] QTC Calculation (Bezet) 429 ms [facility] R Castine -13 degrees [facility] T Castine 36 degrees [facility] Ventricular Rate 68 BPM [facility] Normal sinus rhythm Low voltage QRS Borderline ECG Confirmed by Sherif Cervantes M.D. ([id number]) on 06/17/2019 10:14:09 PM [facility] Basic Metabolic Panelon 12- Anion gap [Moles/Vol] 17 mmol/L 10 - 2 0 mmol/L [facility] Calcium [Mass/Vol] 8.4 mg/dL 8.4 - 10. 2 mg/dL [facility] Chloride [Moles/Vol] 110 mmol/L High 98 - 10 8 mmol/L [facility] Creatinine [Mass/Vol] 3.25 mg/dL High 0.6 - 1.2 mg/dL [facility] GFR/1.73 sq M predicted among non-blacks MDRD (S/P/Bld) [Vol rate/Area] The eGFR should be used for monitoring renal function only and not for medication dosing. [facility] GFR/1.73 sq M.predicted CKD-EPI (S/P/Bld) [Vol rate/Area] 15 Low >=60 mL/min/1.73 m2 [facility] Glucose [Mass/Vol] 172 mg/dL High 65 - 99 mg/dL [facility] HCO3 [Moles/Vol] 12 mmol/L Low 21 - 32 mmol/L [facility] Interpretation and review of laboratory results Abnormal [facility] Potassium [Moles/Vol] 4.8 mmol/L 3.5 - 5.1 mmol/L [facility] Sodium [Moles/Vol] 134 mmol/L Low 135 - 145 mmol/L [facility] Urea nitrogen [Mass/Vol] 57 mg/dL High 8 - 25 mg/dL [facility] Urea nitrogen/Creatinine [Mass ratio] 17.5 mg/mg [facility] CBCon 06-16-2019 Erythrocyte distribution width (RBC) [Entitic vol] 14.1 % 11.6 - 14.8 % [facility] Hematocrit (Bld) [Volume fraction] 32.3 % Low 36 - 46 % [facility] Hemoglobin (Bld) [Mass/Vol] 10.8 g/dL Low 12 - 16 g/dL [facility] Interpretation and review of laboratory results Abnormal [facility] MCH (RBC) [Entitic mass] 30.0 pg 26 - 34 pg [facility] MCHC (RBC) [Mass/Vol] 33.4 g/dL 31 - 37 g/dL [facility] MCV (RBC) [Entitic vol] 89.7 fL 80 - 100 fL [facility] Nucleated RBC (Bld) [#/Vol] 0.00 10*3/uL [facility] Nucleated RBC/100 WBC (Bld) [Ratio] 0.0 % [facility] Platelet mean volume (Bld) [Entitic vol] 11.1 fL 9 - 15.5 fL [facility] Platelets (Bld) [#/Vol] 275 10*3/uL [facility] RBC (Bld) [#/Vol] 3.60 10*6/uL Low [facility]alth WBC (Bld) [#/Vol] 12.93 10*3/uL High [facility] Urine Aerobic Cultureon 05-28 Bacteria identified Aer cx Nom (Unsp spec) One or more organisms < 10,000 CFU/mL of normal urogenital microbiota. Not processed further. [facility] ABORH VERIFICATIONon 019 ABO and Rh group Nom (Bld) ABO/Rh Verification [facility] ABO and Rh group Nom (Bld) B Positive [facility] Patient's ABO/Rh is verified. [facility] BMPon 06-15-2019 Anion gap [Moles/Vol] 20 mmol/L 10 - 2 0 mmol/L [facility] Calcium [Mass/Vol] 8.4 mg/dL 8.4 - 10. 2 mg/dL [facility] Chloride [Moles/Vol] 106 mmol/L 98 - 10 8 mmol/L [facility] Creatinine [Mass/Vol] 3.65 mg/dL High 0.6 - 1.2 mg/dL [facility] GFR/1.73 sq M predicted among non-blacks MDRD (S/P/Bld) [Vol rate/Area] The eGFR should be used for monitoring renal function only and not for medication dosing. [facility] GFR/1.73 sq M.predicted CKD-EPI (S/P/Bld) [Vol rate/Area] 13 Low >=60 mL/min/1.73 m2 [facility] Glucose [Mass/Vol] 158 mg/dL High 65 - 99 mg/dL [facility] HCO3 [Moles/Vol] 13 mmol/L Low 21 - 32 mmol/L [facility] Interpretation and review of laboratory results Abnormal [facility] Potassium [Moles/Vol] 5.1 mmol/L 3.5 - 5.1 mmol/L [facility] Sodium [Moles/Vol] 134 mmol/L Low 135 - 145 mmol/L [facility] Urea nitrogen [Mass/Vol] 62 mg/dL High 8 - 25 mg/dL [facility] Urea nitrogen/Creatinine [Mass ratio] 17.0 mg/mg [facility] CBC WITH AUTO DIFFERENTIALon 06-15-2019 Basophils (Bld) [#/Vol] 0.04 10*3/uL [facility] Basophils/100 WBC (Bld) 0.2 % [facility] Eosinophils (Bld) [#/Vol] 0.00 10*3/uL [facility] Eosinophils/100 WBC (Bld) 0.0 % [facility] Erythrocyte distribution width (RBC) [Entitic vol] 14.1 % 11.6 - 14.8 % [facility] Hematocrit (Bld) [Volume fraction] 38.9 % 36 - 46 % [facility] Hemoglobin (Bld) [Mass/Vol] 12.6 g/dL 12 - 16 g/dL [facility] Immature granulocytes (Bld) [#/Vol] 0.13 10*3/uL [facility] Immature granulocytes/100 WBC (Bld) 0.60 % [facility] Comment on above: The IG parameter is the percentage of metamyelocytes, myelocytes, and promyelocytes. Interpretation and review of laboratory results Abnormal [facility] Lymphocytes (Bld) [#/Vol] 0.34 10*3/uL Low [facility] Lymphocytes/100 WBC (Bld) 1.5 % [facility] MCH (RBC) [Entitic mass] 29.2 pg 26 - 34 pg [facility] MCHC (RBC) [Mass/Vol] 32.4 g/dL 31 - 37 g/dL [facility] MCV (RBC) [Entitic vol] 90.0 fL 80 - 100 fL [facility] Monocytes (Bld) [#/Vol] 1.29 10*3/uL High [facility] Monocytes/100 WBC (Bld) 5.7 % [facility] Neutrophils (Bld) [#/Vol] 20.85 10*3/uL High [facility] Neutrophils/100 WBC (Bld) 92.0 % [facility] Nucleated RBC (Bld) [#/Vol] 0.00 10*3/uL [facility] Nucleated RBC/100 WBC (Bld) [Ratio] 0.0 % [facility] Platelet mean volume (Bld) [Entitic vol] 10.6 fL 9 - 15.5 fL [facility] Platelets (Bld) [#/Vol] 302 10*3/uL [facility] RBC (Bld) [#/Vol] 4.32 10*6/uL [facility] WBC (Bld) [#/Vol] 22.65 10*3/uL [facility] CT COMPARISON IMPORTon 06-15 This order has been auto-finalized and does not contain a result. [facility] 06/15/2019 7:[address] This order has been auto-finalized and does not contain a result. [facility] Hepatic Function Panel (LFT) on 06-15-2019 Albumin [Mass/Vol] 3.5 g/dL 3.2 - 5.2 g/dL [facility] ALP [Catalytic activity/Vol] 82 U/L 40 - 150 U/L [facility] ALT [Catalytic activity/Vol] 16 U/L 0 - 40 U/L [facility] AST [Catalytic activity/Vol] 14 U/L 0 - 45 U/L [facility] Bilirubin [Mass/Vol] mg/dL 0 - 1.3 mg/dL [facility] Bilirubin.conjugated [Mass/Vol] mg/dL 0 - 0.4 mg/dL [facility] Interpretation and review of laboratory results Normal [facility] Protein [Mass/Vol] 6.8 g/dL 6 - 8 g/dL [facility] Lactic Acid, Plasmaon 2018 Interpretation and review of laboratory results Normal [facility] Lactate [Moles/Vol] 1.2 mmol/L 0.6 - 2 mmol/L [facility] Otheron 06-15-2019 Extra Tube Hold for add-ons. [facility] Comment on above: Auto resulted. PT/INRon 06-15-2019 INR Coag (PPP) [Relative time] 1.2 {INR} [facility] Interpretation and review of laboratory results Abnormal [facility] PT Coag (PPP) [Time] 14.[address] [facility] During the induction phase of oral anticoagulation, the INR may not reflect the anticoagulation status of the patient. Therapeutic ranges for INR's are: Most clinical situations: INR 2.0-3.0 Mechanical Prosthetic Valve: INR 2.5-3.5 Critical: INR >5.0 [facility] Type and Screenon 06-15-2019 ABO and Rh group Nom (Bld) B Positive [facility] Blood group antibody screen Ql Negative [facility] Specimen Expires 06/18/2019 23:59 EST [facility] URINALYSISon 06-15-2019 Bacteria Auto Ql (U) Many Abnormal None Se en /hpf [facility] Bilirubin Ql (U) Negative Negative [facility] th Clarity Refractometry automated (U) Cloudy Abnormal Clear [facility] Color (U) [place] Abnormal Colorless, Yellow [facility] Glucose Auto test strip (U) [Mass/Vol] 50 Abnormal Negative mg/dL [facility] Hemoglobin Auto test strip Ql (U) Large Abnormal Negative [facility] Interpretation and review of laboratory results Abnormal [facility] Ketones (U) [Mass/Vol] Trace Abnormal Negative mg/dL [facility] Leukocyte clumps Auto (Urine sed) [#/Area] Many Abnormal None Seen /hpf [facility] Leukocyte esterase Auto test strip Ql (U) Large Abnormal Negative [facility] Nitrite Auto test strip Ql (U) Negative Negative [facility] pH (U) 6.0 [pH] [facility] Protein (U) [Mass/Vol] 100 Abnormal Negative mg/dL [facility] RBC Auto (Urine sed) [#/Area] >180 High [facility] Specific gravity (U) [Rel density] 1.012 [facility] Urobilinogen (U) [Mass/Vol] <2.0 <2.0 mg/dL [facility] WBC Auto (Urine sed) [#/Area] >180 High [facility] Microscopic examinat ion is performed on all urinalysis samples and only positive findings are reported. The test for blood on the chemical analytic portion of urinalysis may also be positive due to hemoglobinuria and myoglobinuria and if red blood cells are present they are quantified by microscopic examination. [facility] Vital Signs Date Time Vital Sign Value Performing Clinician Facility 11-13-2024 12:29-0400 Body height 160.[address] Kandace Katz MD Work Phone: [facility] 11-13-2024 12:29-0400 Body mass index (BMI) [Ratio] 42.8 kg/m2 Dr. Kandace Katz MD Work Phone: [facility] 11-13-2024 12:29-0400 Body weight 109.[address] Kandace Katz MD Work Phone: [facility] 11-13-2024 12:29-0400 Diastolic blood pressure 84 mm[Hg] Dr. Kandace Katz MD Work Phone: [facility] 11-13-2024 12:29-0400 Heart rate 68 /min Dr. Kandace Katz MD Work Phone: [facility] 11-13-2024 12:29-0400 SaO2% (BldA) [Mass fraction] 95 % Dr. Kandace Katz MD Work Phone: [facility] 11-13-2024 12:29-0400 Systolic blood pressure 134 mm[Hg] Dr. Kandace Katz MD Work Phone: [facility] 09-25-2024 10:39-0400 Body mass index (BMI) [Ratio] 41.3 kg/m2 Dr. Kandace Katz MD Work Phone: [facility] 09-25-2024 10:39-0400 Body weight 105.[address] Kandace Katz MD Work Phone: [facility] 09-25-2024 10:39-0400 Diastolic blood pressure 83 mm[Hg] Dr. Kandace Katz MD Work Phone: [facility] 09-25-2024 10:39-0400 Heart rate 90 /min Dr. Kandace Katz MD Work Phone: [facility] 09-25-2024 10:39-0400 Respiratory rate 18 /min Dr. Kandace Katz MD Work Phone: [facility] 09-25-2024 10:39-0400 SaO2% (BldA) [Mass fraction] 94 % Dr. Kandace Katz MD Work Phone: [facility] 09-25-2024 10:39-0400 Systolic blood pressure 127 mm[Hg] Dr. Kandace Katz MD Work Phone: [facility] 09-05-2024 08:40-0400 Body temperature 97.9 [degF] Dr. Kandace Katz MD Work Phone: [facility] 09-05-2024 08:40-0400 Diastolic blood pressure 82 mm[Hg] Dr. Kandace Katz MD Work Phone: [facility] 09-05-2024 08:40-0400 Heart rate 60 /min Dr. Kandace Katz MD Work Phone: [facility] 09-05-2024 08:40-0400 Respiratory rate 16 /min Dr. Kandace Katz MD Work Phone: [facility] 09-05-2024 08:40-0400 SaO2% (BldA) [Mass fraction] 100 % Dr. Kandace Katz MD Work Phone: [facility] 09-05-2024 08:40-0400 Systolic blood pressure 132 mm[Hg] Dr. Kandace Katz MD Work Phone: [facility] 09-05-2024 05:50-0400 Body height 160.[address] Kandace Katz MD Work Phone: [facility] 09-05-2024 05:50-0400 Body mass index (BMI) [Ratio] 40.2 kg/m2 Dr. Kandace Katz MD Work Phone: [facility] 09-05-2024 05:50-0400 Body weight [address] Kandace Katz MD Work Phone: [facility] 07-30-2024 13:52-0500 Body mass index (BMI) [Ratio] 42.3 kg/m2 Dr. Kandace Katz MD Work Phone: [facility] 07-30-2024 13:52-0500 Body weight 108.[address] Kandace Katz MD Work Phone: [facility] 07-30-2024 13:52-0500 Diastolic blood pressure 90 mm[Hg] Dr. Kandace Katz MD Work Phone: [facility] 07-30-2024 13:52-0500 Heart rate 69 /min Dr. Kandace Katz MD Work Phone: [facility] 07-30-2024 13:52-0500 Respiratory rate 18 /min Dr. Kandace Katz MD Work Phone: [facility] 07-30-2024 13:52-0500 SaO2% (BldA) [Mass fraction] 97 % Dr. Kandace Katz MD Work Phone: [facility] 07-30-2024 13:52-0500 Systolic blood pressure 144 mm[Hg] Dr. Kandace Katz MD Work Phone: [facility] 07-17-2024 11:11-0500 Body mass index (BMI) [Ratio] 41.5 kg/m2 Dr. Kandace Katz MD Work Phone: [facility] 07-17-2024 11:11-0500 Body weight 106.[address] Kandace Katz MD Work Phone: [facility] 07-17-2024 11:11-0500 Diastolic blood pressure 84 mm[Hg] Dr. Kandace Katz MD Work Phone: [facility] 07-17-2024 11:11-0500 Heart rate 68 /min Dr. Kandace Katz MD Work Phone: [facility] 07-17-2024 11:11-0500 Respiratory rate 16 /min Dr. Kandace Katz MD Work Phone: [facility] 07-17-2024 11:11-0500 SaO2% (BldA) [Mass fraction] 96 % Dr. Kandace Katz MD Work Phone: [facility] 07-17-2024 11:11-0500 Systolic blood pressure 129 mm[Hg] Dr. Kandace Katz MD Work Phone: [facility] 11-04-2021 13:04-0400 Diastolic blood pressure 62 mm[Hg] Dr. Kandace Katz Work Phone: [facility] Work Phone: 11-04-2021 13:04-0400 Heart rate 62 /min Dr. Kandace Katz Work Phone: [facility] Work Phone: 11-04-2021 13:04-0400 Respiratory rate 16 /min Dr. Kandace Katz Work Phone: [facility] Work Phone: 11-04-2021 13:04-0400 SaO2% (BldA) [Mass fraction] 98 % Dr. Kandace Katz Work Phone: [facility] Work Phone: 11-04-2021 13:04-0400 Systolic blood pressure 128 mm[Hg] Dr. Kandace Katz Work Phone: [facility] Work Phone: 11-04-2021 12:25-0400 Body temperature 97.7 [degF] Dr. Kandace Katz Work Phone: [facility] Work Phone: 11-04-2021 09:55-0400 Body height 160.[address] Kandace Katz Work Phone: [facility] Work Phone: 11-04-2021 09:55-0400 Body mass index (BMI) [Ratio] 45.6 kg/m2 Dr. Kandace Katz Work Phone: [facility] Work Phone: 11-04-2021 09:55-0400 Body weight 116.[address] Kandace Katz Work Phone: [facility] Work Phone: 07-29-2020 13:20-0500 BP Diastolic 84 mm[Hg] [facility] 07-29-2020 13:20-0500 BP Systolic 130 mm[Hg] [facility] 07-29-2020 13:20-0500 Pulse (Heart Rate) 71 /min [facility] 07-29-2020 13:20-0500 Pulse Oximetry 99 % [facility] 07-29-2020 13:20-0500 Respiratory Rate 15 /min [facility] 07-29-2020 13:00-0500 Body Temperature 97.7 [degF] [facility] 07-29-2020 11:28-0500 BMI (Body Mass Index) 41.63 kg/m2 [facility] 07-29-2020 11:28-0500 Body weight 106.59 kg [facility] 07-29-2020 11:28-0500 Height 160 cm [facility] 02-21-2020 15:31-0400 BP Diastolic 86 mm[Hg] [facility] 02-21-2020 15:31-0400 BP Systolic 122 mm[Hg] [facility] 02-21-2020 15:31-0400 Pulse (Heart Rate) 61 /min [facility] 02-21-2020 15:31-0400 Pulse Oximetry 96 % [facility] 02-21-2020 15:31-0400 Respiratory Rate 16 /min [facility] [facility] 02-21-2020 15:15-0400 Body Temperature 97.2 [degF] [facility] 02-21-2020 13:48-0400 BMI (Body Mass Index) 40.03 kg/m2 [facility] 02-21-2020 13:48-0400 Body weight 102.51 kg [facility] 02-21-2020 13:48-0400 Height 160 cm [facility] 07-10-2019 10:09-0500 BMI (Body Mass Index) 40.51 kg/m2 [facility] 07-10-2019 10:09-0500 Body Temperature 98.29 [degF] [facility] 07-10-2019 10:09-0500 Body weight 103.74 kg [facility] 07-10-2019 10:09-0500 BP Diastolic 73 mm[Hg] [facility] 07-10-2019 10:09-0500 BP Systolic 115 mm[Hg] [facility] 07-10-2019 10:09-0500 Pulse (Heart Rate) 84 /min [facility] 07-10-2019 10:09-0500 Respiratory Rate 14 /min [facility] 06-23-2019 12:45-0500 Respiratory Rate 14 /min [facility] 06-23-2019 07:25-0500 Body Temperature 97.5 [degF] [facility] 06-23-2019 07:25-0500 BP Diastolic 60 mm[Hg] [facility] 06-23-2019 07:25-0500 BP Systolic 91 mm[Hg] [facility] 06-23-2019 07:25-0500 Pulse (Heart Rate) 62 /min [facility] 06-23-2019 07:25-0500 Pulse Oximetry 96 % [facility] 06-15-2019 18:39-0500 BMI (Body Mass Index) 38.97 kg/m2 [facility] 06-15-2019 18:39-0500 Body weight 99.79 kg [facility] 06-15-2019 18:39-0500 Height 160 cm [facility] Encounters Encounter Date Encounter Type Care Provider Facility Start: 12-26-2024 ambulatory Roderick Tang Facility :[facility] Start: 11-13-2024 End: 11-13-[address] Eric Sampson MD -[facility] Work Phone: Start: 11-13-2024 End: 11-13-[address] Kandace Katz MD Work Phone: [facility] Work Phone: Start: 11-13-2024 End: 11-13-2024 ambulatory Maxx MARTINEZ Facility:[facility] Start: 10-16-2024 End: 10-16-2024 ambulatory FAITH PADRON Facility:[id number] Start: 09-25-2024 End: 09-25-2024 Patient encounter procedure Babs Bernard UROLOGIC SURGEON-C -[facility] Work Phone: Start: 09-25-2024 End: 09-25-2024 ambulatory Babs Bernard Facility:[facility] Start: 09-14-2024 End: 09-14-[address] Kandace Katz MD Work Phone: [facility] Work Phone: Start: 09-14-2024 End: 09-14-2024 Patient encounter procedure Babs Bernard NP-C -Laboratory Work Phone: Start: 09-14-2024 End: 09-14-2024 ambulatory Babs Bernard Facility:[facility] Start: 09-05-2024 End: 09-05-2024 ambulatory Aman Ponce Facility:[facility] Start: 09-05-2024 End: 09-05-2024 Non-patient / Non-visit Dr. Sandro Bermudez MD -[facility] Work Phone: Start: 09-05-2024 ambulatory Roderick Tang Facility :[facility] Start: 09-05-2024 Non-patient / Non-visit Roderick Mack nd DO -[facility] Start: 09-05-2024 End: 09-05-2024 Admission to same day surgery center Roderick Tang DO -Endoscopy Work Phone: Start: 09-05-2024 End: 09-05-[address] Kandace Katz MD Work Phone: [facility] Work Phone: Start: 09-04-2024 End: 09-04-2024 ambulatory PORSHA DENILSONMATY TRAMMELL Facility:[id number] Start: 08-06-2024 End: 08-06-2024 ambulatory [facility] Start: 07-30-2024 End: 07-30-[address] Jose Rodríguez MD -[facility] Start: 07-30-2024 End: 07-30-[address] Jose Rodríguez MD -[facility] Work Phone: Start: 07-30-2024 End: 07-30-2024 ambulatory Jose Rodríguez Facility:[facility] Start: 07-30-2024 End: 07-30-2024 ambulatory Jose Rodríguez Facility:[facility] Start: 07-17-2024 End: 07-17-2024 Patient encounter procedure Babs MORIN -Laboratory Work Phone: Start: 07-17-2024 End: 07-17-2024 Patient encounter procedure Babs MORIN -[facility] Work Phone: Start: 07-17-2024 End: 07-17-2024 ambulatory Kandace Midenilson Facility:[facility] Start: 07-17-2024 End: [facility] Start: 07-06-2024 End: 07-06-2024 ambulatory [facility] Start: 07-04-2024 End: 07-04-[address] Kandace Katz MD -Outpatient Breast Imaging Work Phone: Start: 07-04-2024 End: 07-04-20[facility] Start: 05-14-2024 End: 05-14-2024 ambulatory PORSHA E VALERI [facility] Start: 03-25-2024 ambulatory JULIA SUAREZ [facility] ty:[id number] Start: 03-06-2024 End: 03-06-2024 ambulatory JULIA SUAREZ Facility:[id number] Start: 01-29-2024 End: 01-29-2024 ambulatory ALISHA SAHU [facility] Start: 11-01-2023 End: 11-01-2023 ambulatory PORSHA TRAMMELL Facility:[id number] Start: 10-26-2023 End: 10-26-2023 ambulatory PORSHA TRAMMELL Facility:[id number] Start: 09-30-2023 End: 10-03-2023 [facility] Start: 09-09-2023 End: 09-09-2023 ambulatory ALISHA SAHU [facility] Start: 06-25-2023 End: 06-25-2023 ambulatory [facility] Work Phone: Start: 06-25-2023 End: 06-25-2023 Patient encounter procedure [facility]-Ultrasound, [facility] Work Phone: Start: 10-27-2022 End: 10-27-2022 ambulatory [facility] Work Phone: Start: 10-27-2022 End: 10-27-2022 [facility] Start: 10-14-2022 End: 10-14-2022 ambulatory [facility] Work Phone: Start: 10-14-2022 End: 10-14-2022 Patient encounter procedure [facility]-Outpatient Breast Imaging Start: 06-10-2022 End: 06-10-2022 ambulatory [facility] Work Phone: Start: 06-10-2022 End: 06-10-2022 Patient encounter procedure [facility]-Radiology, [place] Start: 11-12-2021 End: 11-12-2021 Subsequent hospital visit by physician Porsha Trammell MD Work Phone: [facility] Comment on above: CALCULUS OF KIDNEY Start: 11-04-2021 Non-patient / Non-visit Dr. Neto Katz Work Phone: [facility] Start: 11-04-2021 End: 11-04-2021 Admission to same day surgery center [facility] Start: 10-29-2021 End: 10-29-[address] Kandace Katz Work Phone: [facility] Start: 10-21-2021 End: 10-21-2021 Subsequent hospital visit by physician Mari Chilel MD Work Phone: [facility] [place] Comment on above: HYDRONEPHROSIS, BRYCE L STONES Start: 10-21-2021 End: 10-21-[address] Kandace Katz Work Phone: [facility] Start: 10-20-2021 End: 10-20-[address] Kandace Katz Work Phone: [facility] Start: 10-13-2021 End: 10-13-[address] Kandace Katz Work Phone: [facility] Start: 09-11-2021 Refill Messi Love Work Phone: [facility] Start: 09-09-2021 Refill Messi Tu M D Work Phone: [facility] Start: 08-28-2020 End: 08-28-2020 Orders Only Pamela Hutchinson Work Phone: [facility] Start: 07-29-2020 End: 07-29-2020 Patient encounter procedure KANDACE KATZ [facility] Start: 07-29-2020 End: 07-29-2020 Subsequent hospital visit by physician Messi Mae Work Phone: [facility] Comment on above: Gastroesophageal ref lux disease with esophagitis and hemorrhage Start: 07-26-2020 End: 07-26-2020 [facility] Start: 07-24-2020 End: 07-24-2020 Transcribe Orders Tasia Lujan [facility] Comment on above: Contact with or expo sure to viral disease (Primary Dx) Start: 02-21-2020 End: 02-21-2020 Patient encounter procedure [facility] Start: 02-21-2020 End: 02-21-2020 Subsequent hospital visit by physician Messi Mae Work Phone: [facility] Start: 02-17-2020 End: 02-17-2020 Patient encounter procedure SAVANNA NARANJOHOUN [facility] Start: 02-04-2020 End: 02-04-2020 Documentation procedure Chela Ruano Work Phone: [facility] [place] Start: 09-21-2019 End: 09-21-2019 Patient encounter procedure FERNANDO Almodovar JEWELTRACEY [facility] Start: 09-21-2019 End: 09-21-2019 Patient encounter procedure Fernando To Work Phone: [facility] Comment on above: Follow-up examinatio n, following other surgery (Primary Dx) Start: 09-18-2019 End: 09-18-2019 Patient encounter procedure FERNANDO Almodovar TAMMITRACEY [facility] [place] [facility] Start: 09-18-2019 End: 09-18-2019 Patient encounter procedure Fernando To Work Phone: [facility] Comment on above: Follow-up examinatio n, following other surgery (Primary Dx) Start: 07-10-2019 End: 07-10-2019 Patient encounter procedure LORENA BEASLEY [facility] [place] [facility] Start: 07-10-2019 End: 07-10-2019 Postop follow up visit related to original px Lorena Beasley Work Phone: [facility] Comment on above: Visit for wound chec k (Primary Dx) Start: 06-15-2019 End: 06-23-2019 Evaluation and management of inpatient Marivel Buether Work Phone: [facility] Comment on above: Bowel perforation (H CC) (Primary Dx); Ureterolithiasis; VICKI (acute kidney injury) (HCC); Urethra, calculus; Perforated duodenal ulcer (HCC); Postoperative pain Procedures Date Procedure Procedure Detail Performing Clinician Start: 11-13-2024 In-vitro immunologic test Dr. Kandace koch MD Work Phone: Comment on above: QuantiFERON-TB Gold Plus is a qualitativ e indirect test forM tuberculosis infection (including disease) and isintended for use in conjunction with risk assessment,radiography, and other medical and diagnostic evaluations.The QuantiFERON-TB Gold Plus result is determined bysubtracting the Nil value from either TB antigen (Ag)value. The Mitogen tube serves as a control for the test. No response to M tub erculosis antigens detected.Infection with M tuberculosis is unlikely, but high riskindividuals should be considered for additional testing(ATS/IDSA/CDC Clinical Practice Guidelines, 2017). Thereference range is an Antigen minus Nil result of <0.35IU/mL.The specimen received for QuantiFERON testing was incubatedby the ordering institution. Specific procedures outlinedin our Directory of Services and in the package insert forthe QuantiFERON Gold (In Tube) test must be followed toenable for proper stimulation of cells for the productionof interferon gamma. Chemiluminescence immunoassaymethodologyPerformed at: [facility] [id number] Director: Miguel Anaya PhD, Phone: [phone] Start: 09-05-[address] Kandace Katz MD Work Phone: Start: 07-30-[address] Lacy Katz MD Work Phone: Start: 07-30-2024 Vitamin D, 25-hydroxy measurement Dr. Neto Katz MD Work Phone: Comment on above: Vitamin D 25(OH) Status Range Deficiency <20 ng/mL (50nmol/L) Insufficiency 20 - 30 ng/mL (50 - 75 nmol/L) Sufficiency 30 - 100 ng/mL (75 - 250 nmol/L) Toxicity >100 ng/mL (>250 nmol/L) Start: 07-17-2024 Hepatitis A virus antibody, total measurement Dr. Kandace Katz MD Work Phone: Comment on above: Comment: The HAV total antibody assay de tects both IgG andIgM but does not differentiate between them. A negativeresult suggests susceptibility to infection. A positiveresult could be due to vaccination, previously resolvedinfection or active infection. Testing for HAV IgM shouldbe performed if active HAV infection is suspected. Labcorpoffers profiles that will automatically reflex positive HAVtotal antibody results to IgM (e.g., panel #[id number] HAVAntibody w/ Rfx).Performed at: [address] [id number] Director: Miguel Anaya PhD, Phone: [phone] Start: 07-17-2024 Hepatitis B surface antigen measurement Dr. Kandace Katz MD Work Phone: Start: 07-17-2024 Hepatitis C antibody measurement Dr. Wing Katz MD Work Phone: Comment on above: Non Reactive: < 0.8 Equivocal: >/= 0.8 t o < 1.0 Reactive: >/= 1.0The CDC requires that a reactive/equivocal HCV antibody result be sent out for confirmation. HCV Quant by PCR testing. Start: 07-17-2024 Measurement of renal function Dr. Kandace Katz MD Work Phone: Comment on above: GFR Calc Start: 07-04-[address] Kandace redding MD Work Phone: Start: 07-04-[address] Kandace Katz MD Work Phone: Start: 07-04-2024 US scan of thyroid Dr. Kandace Katz MD Work Phone: Start: 09-30-2023 Urinalysis KANDACE KATZ Comment on above: Result Comment: URINALYSIS Performed By: #### [id number] #### [facility],[address] [address] Start: 06-25-2023 Ultrasonography of abdomen Start: 10-14-2022 Bilateral mammography Start: 10-14-2022 Ultrasonography of breast Start: 06-10-2022 Plain chest X-ray Start: 11-04-2021 End: 11-04-[address] Kandace Katz Work Phone: Start: 11-04-[address] Kandace Katz Work Phone: Start: 10-21-2021 CT of pelvis without contrast Dr. Kandace Kazt Work Phone: Start: 10-20-2021 CT of abdomen without contrast Dr. Ada Katz Work Phone: Start: 07-29-2020 Endoscopy of esophagus Messi Mae Work Phone: Start: 02-21-2020 Endoscopy of esophagus Messinieves Mae Work Phone: Start: 02-21-2020 End: 02-21-2020 Esophagogastroduodenoscopy Messi Tu Work Phone: Start: 06-23-2019 Basic metabolic 2000 panel - Serum or Plasma Lorena Beasley Work Phone: Start: 06-22-2019 Basic metabolic 2000 panel - Serum or Plasma Ramon Joiner Work Phone: Start: 06-22-2019 Phosphate [Mass/volume] in Serum or Plasma Mason Hinton Work Phone: Start: 06-21-2019 Radex upper gi w/wo glucagon/delay images w/kub Ramon Joiner Work Phone: Start: 06-21-2019 Basic metabolic 2000 panel - Serum or Plasma Ramon Joiner Work Phone: Start: 06-21-2019 Magnesium [Mass/volume] in Serum or Plasma Ramon Joiner Work Phone: Start: 06-21-2019 Phosphate [Mass/volume] in Serum or Plasma Cuevas Guzman Edwardflor Work Phone: Start: 06-21-2019 Complete blood count (hemogram) panel - Blood by Automated count Ramon Joiner Work Phone: Start: 06-20-2019 Basic metabolic 2000 panel - Serum or Plasma Ramon Joiner Work Phone: Start: 06-20-2019 Complete blood count (hemogram) panel - Blood by Automated count Ramon Joiner Work Phone: Start: 06-20-2019 Magnesium [Mass/volume] in Serum or Plasma Ramon Joiner Work Phone: Start: 06-19-2019 Basic metabolic 2000 panel - Serum or Plasma Ramon Joiner Work Phone: Start: 06-19-2019 Complete blood count (hemogram) panel - Blood by Automated count Ramon Joiner Work Phone: Start: 06-18-2019 Radiography of [id number]-hnweomw Edw in Rosita Garcia Work Phone: Start: 06-18-2019 Iaad ia hpylori stool Max G Santos Work Phone: Start: 06-18-2019 Basic metabolic 2000 panel - Serum or Plasma Ramon Joiner Work Phone: Start: 06-18-2019 Complete blood count (hemogram) panel - Blood by Automated count Ramon Joiner Work Phone: Start: 06-17-2019 Basic metabolic 2000 panel - Serum or Plasma Brennen Austin Work Phone: Start: 06-17-2019 Complete blood count (hemogram) panel - Blood by Automated count Brennen Austin Work Phone: Start: 06-16-2019 End: 06-16-2019 12 lead ECG Brennen Austin Work Phone: Start: 06-16-2019 Basic metabolic 2000 panel - Serum or Plasma Bernardino Graham Work Phone: Start: 06-16-2019 Complete blood count (hemogram) panel - Blood by Automated count Bernardino rGaham Work Phone: Start: 06-16-2019 End: 06-16-2019 Exploratory laparotomy Brad Johnson Work Phone: Start: 06-15-2019 Radex gi tract upper w/wo delayed images w/kub Mihir Ngo Work Phone: Start: 06-15-2019 Blood group typing Marivel Mae Work Phone: Start: 06-15-2019 Computerized tomography, limited studies External Transcribed Start: 06-15-2019 Bacteria identified in Blood by Culture Belen Sauere Shantanusenia Cedeno Work Phone: Start: 06-15-2019 Bacteria identified in Unspecified specimen by Aerobe culture Belen Karinarocky Cedeno Work Phone: Start: 06-15-2019 Basic metabolic 2000 panel - Serum or Plasma Belen Guzmansenia Cedeno Work Phone: Start: 06-15-2019 Blood type and Indirect antibody screen panel - Blood Bernardino Graham Work Phone: Start: 06-15-2019 Complete blood count with white cell differential, automated Belen Karina Shantanu Cedeno Work Phone: Start: 06-15-2019 Complete blood count with white cell differential, manual Belen Karinarocky Cedeno Work Phone: Start: 06-15-2019 Hepatic function 2000 panel - Serum or Plasma Belen Karina Shantanu Cedeno Work Phone: Start: 06-15-2019 INR in Platelet poor plasma by Coagulation assay Bernardino Graham Work Phone: Start: 06-15-2019 Lactate [Moles/volume] in Serum or Plasma Belenjosephine Sauere Shantanusenia Cedeno Work Phone: Start: 06-15-2019 LIGHT BLUE TOP Marivel Mae Work Phone: Start: 06-15-2019 LIGHT GREEN TOP Marivel Mae Work Phone: Start: 06-15-2019 PINK TOP Marivel Mae Work Phone: Start: 06-15-2019 RAINBOW DRAW Marivel Mae Work Phone: Start: 06-15-2019 Urinalysis Belen Cedeno Work Phone: H/O: surgery History of gastric surgery Dr. Kandace Katz Work Phone: Plan of Treatment Date Care Activity Detail Author Start: 09-05-2024 Colonoscopy w/biopsy single/multiple COLONOSCOPY AND BIOPSY [facility] Start: 09-05-2024 Colsc flx w/rmvl of tumor polyp lesion snare tq COLONOSCOPY W/LESION REMOVAL [facility] Start: 09-05-2024 Egd transoral biopsy single/multiple EGD BIOPSY SINGLE/MULTIPLE [facility] Start: 09-05-2024 Egd transoral control bleeding any method EGD CONTROL BLEEDING ANY [facility] Start: 09-05-2024 Patient discharge [facility] Start: 02-25-2022 Influenza vaccination Sequential Influenza Vaccine (#1) [facility] Start: 2021 Fall risk assessment Falls Risk Assessment [facility] Start: 2021 Pneumococcal Vaccine: Age 65+ (1 - PCV) Pneumococcal Vaccine: Age 65+ (1 - PCV) [facility] Start: 10-26-2020 Esophagogastroduodenoscopy EGD [facility] Start: 08-05-2020 COVID-19 Vaccine (2 - Moderna series) COVID-19 Vaccine (2 - Moderna series) [facility] Start: 08-05-2020 COVID-19 Vaccine (2 of 2 - Moderna series) COVID-19 Vaccine (2 of 2 - Moderna series) [facility] Start: 07-29-2020 End: 07-29-2020 Hospital Encounter [facility] Comment on above: ESOPHAGOGASTRODUODENOSCOPY Start: 07-25-2020 End: 07-25-2020 Office Visit 07/25/2020 Office Visit Lab Messi Mae MD [address] [place] [address] [phone] [facility] Start: 05-23-2020 Esophagogastroduodenoscopy EGD [facility] Start: 02-26-2020 Influenza vaccination given Sequential Influenza Vaccine (#1) [facility] Start: 09-11-2019 End: 09-11-2019 Office Visit 09/11/2019 Office Visit General Surgery [facility] [place] Start: 07-02-2019 End: 06-23-2020 Basic metabolic 2000 panel Basic Metabolic Panel Lab Routine Perforated duodenal ulcer (HCC) Expected: 07/02/2019, Expires: 06/23/2020 [facility] Comment on above: Expected: 07/02/2019, Expires: 0 Start: 02-25-2019 Influenza vaccination given Sequential Influenza Vaccine (#1) [facility] Start: 2006 Administration of herpes zoster vaccine Zoster Vaccines (1 of 2) [facility] Start: 2006 Screening [facility] malignant neoplasm [facility] colon [facility] Start: 1996 Screening for malignant neoplasm of breast Mammogram [facility] Start: 1974 Hepatitis C antibody, confirmatory test Hepatitis C Screening [facility] Start: 1974 Hepatitis C screening Hepatitis C Screening [facility] Start: 12-11-1971 HIV screening HIV Screening [facility] Start: 1968 Adolescent depression screening assessment Depression Screening (PHQ9) [facility] Start: 1968 Depression screening using PHQ-9 (Patient Health Questionnaire 9) score Depression Screening (PHQ-2/9) [facility] Start: 12-11-1959 History and physical examination, annual for health maintenance Wellness Visit [facility] Start: 1956 Hepatitis C antibody, confirmatory test Hepatitis C Screening [facility] Start: 1956 Screening for malignant neoplasm of cervix Pap Smear [facility] Start: 1956 Screening for malignant neoplasm of colon [facility] Start: 1956 Screening for osteoporosis Dexa Scan [facility] Start: 1956 Screening mammography Mammogram [facility] Start: 1956 Tetanus vaccination [facility] C reactive protein [ Mass/volume] in Serum or Plasma [facility] CBC W Auto Different ial panel - Blood [facility] Ceruloplasmin [Mass/ volume] in Serum or Plasma [facility] Comprehensive metabo lic 1999 panel - Serum or Plasma [facility] End: 07-24-2021 Covid-19/Influenza Order Algorithm : COVID-19 Lab Test Only (OP in UTM) Tier 2 EGD - Dr. Messi Mae Covid-19/Influenza Order Algorithm : COVID-19 Lab Test Only (OP in UTM) Tier 2 EGD - Dr. Messi Mae Microbiology Routine Contact with or exposure to viral disease 1 Occurrences starting 07/24/2020 until 07/24/2021 [facility] Comment on above: 1 Occurrences starting 07/24/2020 until 07/24/2021 Cytoplasmic ANCA Screen [facility] Ferritin [Mass/volum e] in Serum or Plasma [facility] Hemoglobin A1c/Hemog lobin.total in Blood [facility] Iron and Iron bindin g capacity panel - Serum or Plasma [facility] Lipid 1996 panel - Serum or Plasma [facility] Liver stiffness by U S.transient elastography [facility] Mitochondria Ab [Pre sence] in Serum [facility] Patient referral [facility] Work Phone: Procedure on tissue specimen [facility] Comment on above: Release Upon Ordering for 1 Occurrences starting 07/29/2020 Release Upon Orderin g for 1 Occurrences starting 02/21/2020 Prothrombin time [facility] Serum immunofixation [facility] Smooth muscle Ab [Pr esence] in Serum [facility] Thyroid stimulating hormone measurement [facility] Immunizations Immunization Date Immunization Notes Care Provider Fa jace 09-22-2018 influenza, seasonal, injectable Yves Mae [facility] Payers Date Payer Category Payer Self-pay [id number] 2023 Medicare [id number] 2019 Medicaid [facility] MEDICAID COMMUNITY PLAN [id number] 2019-Present [id number] 2019 Medicaid [id number] 2019 Medicaid [employer] MANAGED MEDI CAID U[employer] MEDICAID COMMUNITY PLAN [id number] 2019-Present [phone] [address] [place] [address] [id number] 1956 Unknown [id number] 1956 Unknown [id number] 1956 Unknown [id number] 1956 Unknown [id number] 1956 Unknown [id number] 1956 Unknown [id number] 1956 Unknown [id number] 1956 Unknown [id number] 1956 Unknown [id number] Unknown [id number] Unknown [id number] Unknown [id number] [id number] Unknown [id number] 2.16.840.1.701350.3.579.2.462 Unknown [id number] 2.16.840.1.275219.3.579.2.462 Unknown [id number] 2.16.840.1.120450.3.579.2.462 Unknown [id number] 2.16.840.1.335924.3.579.2.462 Unknown 1995 [id number] Unknown [id number] 2.16.840.1.523081.3.579.2.462 Unknown [id number] 2.16.840.1.146230.3.579.2.462 Unknown [id number] 2.16.840.1.832156.3.579.2.462 Unknown [id number] 2.16.840.1.722757.3.579.2.462 Unknown [id number] 2.16.840.1.303438.3.579.2.462 Unknown [id number] 2.16.840.1.092748.3.579.2.462 Unknown [id number] Social History Date Type Detail Facility Start: 07-10-2019 End: 09-25-2024 Tobacco smoking status NHIS Former smoker [facility] Start: 07-10-2019 End: 08-05-2021 Alcohol intake Ex-drinker (finding) [facility] Start: 06-15-2019 Alcohol Comment rare [facility] Start: 1955 Sex Assigned At Not on file [facility] Exposure to SARS-CoV-2 (event) Unable to assess [facility] Start: 06-15-2019 End: 02-21-2020 Tobacco use and exposure Never used [facility] Exposure to SARS-CoV-2 (event) Not sure [facility] Start: 10-13-2021 End: 11-03-2021 Tobacco smoking status RIIS Tobacco smoking consumption unknown [facility] Start: 1955 Sex Assigned At Female [facility] History of tobacco use Current smoker [facility] Start: 09-05-2024 End: 09-21-2024 Sex Female (finding) [facility] NEGATED: Highlighted row Not [facility] Medical Equipment Procedure Code Equipment Code Equipment Original Text Equipment Identifier Dates Colonoscopy Gastrointestinal endoscopic clip, long-term, non-bioabsorbable [id number] FDA Start: 09-05-2024 Goals Date Patient Goal Desired Activity /State Mental Status Date Assessment Result Facility 09-05-2024 Cognitive function Voice/Name [facility] Work Phone: 11-04-2021 Cognitive function Voice/Name [facility] Work Phone: Clinical Notes 10-23-2021 to 10-16-2024 Note Date & Type Note Facility 10-16-2024 Note HNO ID: [id number] Author: FAITH PADRON APRN.CREDIT UNION EXAMINER Service: ? Author Type: Nurse Practitioner Type: Procedures Filed: 10/16/2024 13:38 Note Text: Interstim program was on 4 @ 2.0, she is now switched to program 5 @ 2.0. She feels the stimulation in her buttocks. Faith Padron APRN.CREDIT UNION EXAMINER [facility] 10-16-2024 Note HNO ID: [id number] Author: FAITH PADRON APRN.CREDIT UNION EXAMINER Service: ? Author Type: Nurse Practitioner Type: Progress Notes Filed: 10/16/2024 13:38 Note Text: [facility] ESTABLISHED PATIENT OFFICE VISIT HISTORY OF PRESENT ILLNESS Felipa Lima is a 68 year old female who is here for follow up of UUI and OAB. Pt reports that she was voiding every 3 hrs during the day, but lately it is about every 1.5 hrs with some UUI (wearing pull ups). She is still on oxybutynin 10mg daily. No hematuria or dysuria. Made adjustments to her Interstim and reeducated on how to makes changes. See procedure note. Review of Systems The remainder of the ROS was reviewed and is negative. LAB Creatinine Date Value Ref Range Status 10/12/2023 1.88 (H) 0.51 - 0.95 mg/dL Final Comment: Patients receiving either N-Acetylcysteine (NAC) or Metamizole prior to venipuncture, may have falsely depressed results. No results found for: PSA, PSASC GLUCOSE UA (POCT) (mg/dL) Date Value 09/04/2024 Negative BILIRUBIN UA (POCT) (no units) Date Value 09/04/2024 Negative KETONE UA (POCT) (mg/dL) Date Value 09/04/2024 Negative SPECIFIC GRAVITY UA (POCT) (no units) Date Value 09/04/2024 1.010 HEMOGLOBIN/BLOOD UA (POCT) (no units) Date Value 09/04/2024 Moderate (A) PH UA (POCT) (no units) Date Value 09/04/2024 6.0 PROTEIN UA (POCT) (mg/dL) Date Value 09/04/2024 Trace (A) UROBILINOGEN UA (POCT) (E.U./dL) Date Value 09/04/2024 0.2 NITRITE UA (POCT) (no units) Date Value 09/04/2024 Negative LEUKOCYTES UA (POCT) (no units) Date Value 09/04/2024 Moderate (A) COLOR UA (POCT) (no units) Date Value 09/04/2024 Yellow CLARITY UA (POCT) (no units) Date Value 09/04/2024 Clear ] MEDICATIONS nitrofurantoin monohydrate and macrocrystal (MACROBID) 100 mg capsule oxybutynin ER (DITROPAN XL) 10 mg 24 hr tablet Take 1 tablet by mouth once daily. sodium citrate-citric acid (BICITRA) 500-334 mg/5 mL solution TAKE 10 ML BY MOUTH THREE TIMES DAILY (DILUTED IN 1 TO 3 OUNCES OF WATER) SKYRIZI 150 mg/mL injection Inject subcutaneously. Once every 3 months due october 2023-- will take following procedure. sodium bicarbonate 650 mg tablet Take 650 mg by mouth three times daily. furosemide (LASIX) 20 mg tablet Take 20 mg by mouth as needed. For swelling in legs hasn't taken in awhile allopurinol (ZYLOPRIM) 100 mg tablet Take 100 mg by mouth every morning. pantoprazole DR (PROTONIX) 40 mg tablet Take 40 mg by mouth every morning. 0 HISTORIES PAST MEDICAL HISTORY Diagnosis Date Chronic kidney disease, stage IV (severe) ([facility]) Dr. Nickerson Kidney stones PONV (postoperative nausea and vomiting) Sensory urge incontinence 2023 PAST SURGICAL HISTORY Procedure Laterality Date COLON SURGERY HX repair rupture CYSTOSCOPY several times ESWL F TOTAL ABDOMINAL HYSTERECTOMY FRACTURE SURGERY Right heel INCISION AND DRAINAGE OF WOUND (IANDD) HX upper left thigh LIPOMA (LARGE) upper abd. [employer]TR[employer] 1X4 POCKET ADAPTER Left 09/2023 PAST SURGICAL HISTORY OF biopsy on the thyroid (benign) PT ED OBST[facility]RICS [facility]ECOLOGY [facility] FAMILY HISTORY Problem Relation Age of Onset Colon Cancer Brother SOCIAL HISTORY Social History Tobacco Use Smoking status: Former Current packs/day: 0.00 Average packs/day: 0.5 packs/day for 20.0 years (10.0 ttl pk-yrs) Types: Cigarettes Start date: 1986 Quit date: 2006 Years since quittin.3 Smokeless tobacco: Never Vaping Use Vaping status: Never Used Substance Use Topics Alcohol use: Yes Comment: very seldom Drug use: Never There were no vitals taken for this visit. Physical Exam ASSESSMENT/PLAN: 1. Sensory urge incontinence - ICD9: 788.31, ICD10: N39.41 (primary diagnosis) S/p Interstim (10/26/23) with Dr. Trammell Changed to program 5, if working well, trial off oxybutynin 10mg F/u 6 mos or sooner if needed - BLADDER SCAN= 0ml 2. Screening for genitourinary condition - ICD9: V81.6, ICD10: Z13.89 3. Kidney stone - ICD9: 592.0, ICD10: N20.0 CT a/p (2023) R lower pole stone Observe for now Faith Padron APRN.ANAHY Padron APRN.CREDIT UNION EXAMINER This note was partially created using voice recognition software and is inherently subject to errors including those of syntax and sound-alike substitutions which may escape proofreading. In such instances, original meaning may be extrapolated by contextual derivation. [facility] 09-05-2024 History and physical note Note Date/Time September 05, 2024 6:57am [facility] Medical Records Department [address] [place] [address] History & Physical Exam 09/05/24 0655 MR#: [id number] Acct: [id number] Name: FELIPA LIMA Rep #:[id number] : 1955 68 From: Roderick Tang DO PCP: Dr. Kandace Katz MD Status:REG [facility] Location: [place] [address] HPI - General General Date of Admission: 09/05/24 Date of Service: 09/05/24 Chief Complaint: sandoval's and CRS HPI Narrative Chief Complaint: Sandoval's, fatty liver, colon screening 68y/o female referred by Dr. Katz for Sandoval's, screening colonoscopy and fatty liver. PMH is significant for CKD3 and psoriasis. She reports a history ofperforated duodenal ulcer in 2018 and Sandoval's esophagus diagnosed in 2018. ABDUS performed May 2023 revealed hepatomegaly with liver steatosis. EGD 2020 Sandoval's EGD 2018 duodenal ulcer with hemorrhage and perforation HAV Total Ab: HBVsA10/20/2020 negative HBVsAb: 10/20/2020 negative HBV Core Ab Total: 10/27/2022 negative HCV Ab: 12/04/2018 negative CBC: January 2024 CMP: January 2024 ABD US: 06/25/[address] Chest/ABD/Pelvis w/o contrast 09/29/2023 hepatomegaly, splenomegaly, left thyroid nodule and pyelonephritis. HB well controlled on pantoprazole - denies any dysphagia - denies any N/V - denies any weight loss - pending thyroid nodule biopsy - reports no known cause of duodenal ulcer EtOH: once a year Family h/o liver disease: denies Tattoos - yes Brother with colon CA - diagnosed in 50's - reports her bowels are fairly regular - occasional diarrhea - denies any bleeding - reports she had a colonoscopy in her 20's - implant right hip to control bladder frequency Skyrizi for psoriasis [facility] Medical History Thyroid disease Arthritis Bladder disease Easy bruising Back pain Syncope History of hiatal hernia History of renal disease Leg cramps History of pain when walking Hx of lipoma Wears glasses Post-menopausal Former smoker Hydronephrosis, right Right ureteral calculus History of uterine leiomyoma Fatigue GERD (gastroesophageal reflux disease) Home Medications ?Medication ?Instructions ?Recorded ?Last Taken ?Type allopurinol 100 mg tablet 100 mg PO DAILY 10/13/2105/21 History sodium bicarbonate 650 mg tablet 650 mg PO TID 2 09/04/24 History pantoprazole 40 mg tablet,delayed 20 mg PO DAILY 07/1609/05/24 History release risankizumab-rzaa 150 mg/mL 150 mg subcut Q12W 5 Unknown History subcutaneous pen injector (Adelsoyrizi) acetaminophen 500 mg capsule 500 mg PO Q6H PRN pain 09/04/24 History nitrofurantoin macrocrystal 100 mg 100 mg PO Q12H PRN BLADDER 07/17/24 Unknown History capsule oxybutynin chloride 10 mg 10 mg PO QDAY 07/17/2409/05 History tablet,extended release 24 hr Allergy/AdvReac Type Severity Reaction Status Date / Time cephalexin Allergy Severe Other Verified 09/05/24 05:48 Iodinated Contrast Media Allergy Mild rash Verified 09/05/24 05:48 latex Allergy Rash Verified 09/05/24 05:48 wool Allergy Rash Verified 09/05/24 05:48 codeine AdvReac Mild gi upset Verified 09/05/24 05:48 morphine AdvReac Mild gi upset Verified 09/05/24 05:48 Family History Father Diabetes Hypertension Cancer skin Mother Hypertension Brother Colon cancer Surgical History History of bladder surgery History of incision and drainage History of esophagogastroduodenoscopy (EGD) Hx of biopsy History of surgery History of ureter stent Hx of foot surgery History of hysterectomy History of colonoscopy Social History Smoking Status: Former smoker how long ago did patient quit smokin years ROS Constitutional Constitutional: Denies fatigue, fever(s), poor appetite, weight gain or weight loss Gastrointestinal Gastrointestinal: Denies belching, bloating, change in bowel habits, change in stool character, chewing difficulty, coffee ground emesis, constipation, cramping, diarrhea, dyspepsia, dysphagia, early satiety, excessive flatus, fecalincontinence, heartburn, hematemesis, hematochezia, hemorrhoids, loose stools, melena, nausea, odynophagia, rectal bleeding, tenesmus, vomiting or weight changes Vital Signs Vital Signs Vital Signs: 09/05/24 05:50 09/05/24 05:50 09/05/24 06:13 Temperature 98.3 F 98.3 F Temperature Source Temporal Pulse Rate 64 64 Respiratory Rate 18 18 Respiratory Pattern Normal Blood Pressure 102/64 102/64 Blood Pressure Mean 76 Blood Pressure Source Monitor Blood Pressure Position Semi-Fowlers Blood Pressure Location Left Arm Pulse Ox 97 97 Oxygen Delivery Method Room Air Room Air Weight Weight: 227 lb 1.218 oz Body Mass Index (BMI) 40.2 Physical Exam Const alert, oriented x3, no apparent distress and healthy appearing General Appearance: cooperative GI normal to inspection, nondistended, normoactive bowel sounds, soft to palpation,non-tender and non-distended Percussion: normal to percussion Rectal Exam: deferred Assessment & Plan Assessment/Plan (1) Sandoval esophagus: QUALIFIERS: Sandoval's esophagus type: without dysplasia QualifiedCode(s): K22.70 - 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 (2) Screen for colon cancer: PLAN: Plan Assessment and Plan Assessment and Plan (1) Metabolic dysfunction-associated steatotic liver disease (MASLD): Status: Acute (2) Sandoval esophagus: Status: Acute Qualifiers: Sandoval's esophagus type: without dysplasia Qualified Code(s): K22.70 -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 (3) Screen for colon cancer: Status: Acute (4) Family history of colon cancer: Status: Acute Comment: Brother in his early 50's Orders: Orders CBC W/Diff, Automated Today K22.70 - 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, K76.0 - Fatty (change of) liver, not elsewhere classified, Z12.11 - Encounter for screening for malignant neoplasm of colon, Z80.0 - Family history of malignant neoplasm of digestive organs Comprehensive Metabolic Profil Today K22.70 - 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, K76.0 - Fatty (change of) liver, not elsewhere classified, Z12.11 - Encounter for screening for malignant neoplasm of colon, Z80.0 - Family history of malignant neoplasm of digestive organs Hepatitis A AB, Total Today K22.70 - 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, K76.0 - Fatty (change of) liver, not elsewhere classified, Z12.11 - Encounter for screening for malignant neoplasm of colon, Z80.0 - Family history of malignant neoplasm of digestive organs Hepatitis B Core Ab Total Today K22.70 - 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,K76.0 - Fatty (change of) liver, not elsewhere classified, Z12.11 - Encounter for screening for malignant neoplasm of colon, Z80.0 - Family history of malignant neoplasm of digestive organs Hepatitis B Surface Antibody Today K22.70 - 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, K76.0 - Fatty (change of) liver, not elsewhere classified, Z12.11 - Encounter for screening for malignant neoplasm of colon, Z80.0 - Family history of malignant neoplasm of digestive organs Hepatitis B Surface Antigen Today K22.70 - 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, K76.0 - Fatty (change of) liver, not elsewhere classified, Z12.11 - Encounter for screening for malignant neoplasm of colon, Z80.0 - Family history of malignant neoplasm of digestive organs Hepatitis C Antibody Today K22.70 - 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, K76.0 - Fatty (change of) liver, not elsewhere classified, Z12.11 - Encounter for screening for malignant neoplasm of colon, Z80.0 - Family history of malignant neoplasm of digestive organs Medications: New peg 3350-electrolytes 236-22.74-6.74 -5.86 gram (Golytely) take as directed for split dose bowel prep 240 mL PO Q10M 4,000 mL 0RF Colonoscopy Plan 68y/o female referred by Dr. Katz for Sandoval's, screening colonoscopy and fatty liver. PMH is significant for CKD3 and psoriasis. She reports a history ofperforated duodenal ulcer in 2018 and Sandoval's esophagus diagnosed in 2020. Shedenies any HB, N/V, dysphagia or weight loss. She is on pantoprazole 20mg daily and we have discussed indefinite use of PPI with known history of Sandoval's. I have scheduled her for an EGD as well as screening colonoscopy. Her family history is significant for brother with colon cancer. Prior imaging (US 2022/CT 2023) were revealing for hepatomegaly, liver steatosis and splenomegaly. We havereviewed MASLD and I have have ordered labs as well as FibroScan for additional evaluation. Elastography - TUKZ Undergarments ELF - Enhanced Liver Fibrosis (ELF)? Test CBC CMP Hepatitis panel EGD and Colonoscopy - Golyte bowel prep due to h/o CKD Indefinite use of PPI for Sandoval's Patient Instructions: (MASLD) Metabolic dysfunction-associated steatotic liver disease (MASLD) is a spectrum of disease that ranges from a more benign condition of nonalcoholic fatty liver (NAFL) to nonalcoholic steatohepatitis (INFANTE), which is at the more severe end of the spectrum. In NAFL, hepatic steatosis is present without evidence of inflammation, whereas in INFANTE, hepatic steatosis is associated with lobular inflammation and apoptosis that can lead to fibrosis and cirrhosis. Lifestyle modifications are the cornerstone of treatment for fatty liver disease. These include optimizing care for diabetes, high cholesterol and obesity. - Weight loss is the primary therapy for most patients with MASLD. We recommend weight loss for all patients with MASLD who are overweight (body mass index [BMI] =25 kg/m2) or have obesity (BMI =30 kg/m2) because fat accumulation in the liver leads to inflammation which leads to irreversible scarring. Unchecked liver inflammation and scarring can increase the risk of developing liver cancer and cardiovascular complications, such as heart attack and stroke. Weight loss can lead to improvement in liver biochemical tests, liver histology, serum insulin levels, and quality of life. Ideally, aim to lose between 5-10% of total body weight (1-2 lb per week) over the next 6 months. This can be achieved by adhering to a very low carbohydrate diet (60 g/day), high in lean protein and vegetables (variant of the Mediterranean diet). Reducing portion sizes can also make weight loss easier. Fhhu-fg-[id number] intensity cardiovascular and/or resistance exercise (30 min, 3-4 days/week) paired with dietary modifications is helpful, as long as such an exercise regimen is permitted by your longitudinal float operator or primary care provider. Dietary counseling and/or a physician managed weight loss program is often extremely helpful in attaining this goal. - Small studies have shown that up to 3 cups of black coffee (no sugar, no cream) can be beneficial for liver health in patients with fatty liver. However, this should be avoided if coffee is a known trigger for gastrointestinal symptoms. - There is no known safe amount of alcohol use in fatty liver disease. Avoidance is recommended. - Smoking should also be avoided as it has been independently associated with the development of fatty liver disease and predisposes to insulin resistance and diabetes. Plan Details Follow Up: 3 Months 09/05/24 0657 <Electronically signed by Roderick Tang DO> Cosigner Signature (if applicable): CC: Dr. Kandace Katz MD; Roderick Tang DO~ Signed [facility] Work Phone: 1(842) 830-361603-12-2025 Consult note Author Keron Bowen [facility] Note Date/Time September 05, 2024 6:1 3am [facility] Medical Records Department [address] [place] [address] Pre-Anesthesia Evaluation 09/05/24 0602 MR#: [id number] Acct: [id number] Name: FELIPA LIMA SHREYAS Rep #:[id number] : 1955 68 From: Keron Bowen MD PCP: Dr. Kandace Katz MD Status:REG SDC Y Race: C Location: [place] [address] ASA Classification* ASA Classification ASA Classification: 3 (This is a 68 yo F with fatty liver disease, sandoval esophagus, hx of duodenal ulcers, right kidney stones, gerd, and stage 3 CKD presenting for EGD/colonoscopy.) Assessment & Plan Anesthesia* Anesthesia Assessment Anesthesia Assessment: Discussed sedation and/or anesthesia options, risks, benefits, and alternatives with patient/parents/legal guardian/POA. Questions invited. The patient/parents/legal guardian/POA seems to understand and agrees to proceedwith anesthesia plan. Reviewed the physical assessment, medical history, allergy history and patient home medications list prior to surgery/procedure/anesthetic and documented any changes. Performed airway and anesthesia risk assessments. Anesthesia Type Anesthesia Type: General History Source History Obtained from:: Patient and Chart Anesthesia Focused Assessment* Temperature: 98.3 F Pulse Rate: 64 Blood Pressure: 102/64 Respiratory Rate: 18 Pulse Ox: 97 Oxygen Delivery Method: Room Air Airway Assessment Mouth opens: >3 cm Mallampati Score: III Teeth Condition: Intact Neck Range of motion (ROM): Full ROM Focused Labs Anesthesia Preop lab: CBC WBC 5.3 K/mm3 (4.4-11.0) 07/17/24 12:07 07/17/24 RBC 4.30 M/mm3 (4.2-5.4) 07/17/24 12:07 07/17/24 Hgb 12.9 g/dL (12.0-15.0) 07/17/24 12:07 07/17/24 Hct 41.2 % (37-47) 07/17/24 12:07 07/17/24 Plt Count 195 K/mm3 (150-450) 07/17/24 12:07 07/17/24 CHEMISTRY Potassium 4.1 mmol/L (3.5-5.1) 07/17/24 12:07 07/17/24 Sodium 140 mmol/L (136-145) 07/17/24 12:07 07/17/24 BUN 34 mg/dL (7-18) H 07/17/24 12:07 07/17/24 Creatinine 1.60 mg/dL (0.55-1.02) H 07/17/24 12:07 Glucose 112 mg/dL (74-106) H 07/17/24 12:07 07/17/24 COAG Pre-Assessment Diagnosis/Proposed Procedure Planned Operative Procedure(s): EGD/CSCOPE Anesthesia History 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 When Was Last Pacemaker Check QUESTION #4 FULL TEXT: You/Your Family Experience fever (hyperthermia) with Anesthesia Last Oral Intake Last Oral intake: Last Oral Intake NPO since 18:30 09/05/24 05:50 Meds taken in AM with sips of water? Meds patient instructed to take am of surgery PONV PONV - betting clerk: PONV - betting clerk Female Yes 08/31/24 12:44 HX of Motion Sickness No 08/31/24 12:44 HX of N/V After Surgery No 08/31/24 12:44 Non-Smoker Yes 08/31/24 12:44 Duration of Surgery greater No 08/31/24 12:44 than 60 minutes Number of Risk Factors 2 08/31/24 12:44 PONV Score Moderate Risk 08/31/24 12:44 Height & Weight Height & Weight: Anesthesia: Height & Weight Height 5 ft 3 in 09/05/24 05:50 Weight: 103 kg 09/05/24 05:50 Body Mass Index (BMI) 40.2 09/05/24 05:50 Respiratory Assessment Respiratory Assessment - betting clerk: Respiratory Tract Infection Hx - betting clerk Hx Respiratory Tract Infection No 08/31/24 12:44 STOP Sleep Apnea STOP Sleep Apnea - betting clerk: STOP Sleep Apnea - betting clerk Hx Hypertension No 08/31/24 12:44 Hx Sleep Apnea No 08/31/24 12:44 CPAP BIPAP Do you snore loudly (louder Yes 08/31/24 12:44 than talking or can be heard Do you often feel tired/ No 08/31/24 12:44 fatigued/ sleepy during daytime? Has anyone observed you stop No 08/31/24 12:44 breathing during sleep? STOP Results Negative 08/31/24 12:44 QUESTION #5 FULL TEXT : Do you snore loudly (louder than talking or can be heard through closed doors)? 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 Specify any problems Hx of Preganancy in last 3 No 08/31/24 12:44 Months Nurse Filling Out Transfusion DSCHRIBER 08/31/24 12:44 & Questions: Date: 08/31/24 08/31/24 12:44 Time: 12:46 08/31/24 12:44 Patient unable to answer at this time (ie. confused, unrespo /Reproduction History /Reproductive History - betting clerk: /Reproductive Hx- betting clerk Hx Now No 08/31/24 12:44 Gestational Age (in weeks): EDC: Hx Hx Para Hx Section SAB No 08/31/24 12:44 [facility] Medical History (Updated 08/31/24 @ 12:56 by Lydia Jones) Thyroid disease Arthritis Bladder disease Easy bruising Back pain Syncope History of hiatal hernia History of renal disease Leg cramps History of pain when walking Hx of lipoma Wears glasses Post-menopausal Former smoker Hydronephrosis, right Right ureteral calculus History of uterine leiomyoma Fatigue GERD (gastroesophageal reflux disease) Home Medications ?Medication ?Instructions ?Recorded ?Last Taken ?Type allopurinol 100 mg tablet 100 mg PO DAILY 10/13/2105/21 History sodium bicarbonate 650 mg tablet 650 mg PO TID 2 09/04/24 History pantoprazole 40 mg tablet,delayed 20 mg PO DAILY 07/1609/05/24 History release risankizumab-rzaa 150 mg/mL 150 mg subcut Q12W 5 Unknown History subcutaneous pen injector (James) acetaminophen 500 mg capsule 500 mg PO Q6H PRN pain 09/04/24 History nitrofurantoin macrocrystal 100 mg 100 mg PO Q12H PRN BLADDER 07/17/24 Unknown History capsule oxybutynin chloride 10 mg 10 mg PO QDAY 07/17/2409/05 History tablet,extended release 24 hr Allergy/AdvReac Type Severity Reaction Status Date / Time cephalexin Allergy Severe Other Verified 09/05/24 05:48 Iodinated Contrast Media Allergy Mild rash Verified 09/05/24 05:48 latex Allergy Rash Verified 09/05/24 05:48 wool Allergy Rash Verified 09/05/24 05:48 codeine AdvReac Mild gi upset Verified 09/05/24 05:48 morphine AdvReac Mild gi upset Verified 09/05/24 05:48 Family History Father Diabetes Hypertension Cancer skin Mother Hypertension Brother Colon cancer Surgical History (Updated 08/31/24 @ 12:56 by Lydia Jones) History of bladder surgery History of incision and drainage History of esophagogastroduodenoscopy (EGD) Hx of biopsy History of surgery History of ureter stent Hx of foot surgery History of hysterectomy History of colonoscopy Social History Smoking Status: Former smoker how long ago did patient quit smokin years Review of Systems (Anesthesia) ROS Narrative System reviewed and no additional complaints, except as documented. Physical Exam Const alert and oriented x3 Nutritional Appearance: obese Resp normal respiratory effort, normal air movement and clear to auscultation bilaterally Cardio regular rate, regular rhythm, no murmurs and diaphoretic 09/05/24 0613 <Electronically signed by Keron Bowen MD> Date _ Keron Bowen MD Cosigner Signature: Date CC: ~ Signed [facility] Work Phone: 1(203) 961-469203-12-2025 Consult note [facility] Medical Records Department [address] [place] [address] Anesthesia Postop Eval I 09/05/24 0753 MR#: [id number] Acct: [id number] Name: FELIPA LIMA SHREYAS Rep #:[id number] : 1955 68 From: Jefry Alford PCP: Dr. Kandace Katz MD Status:REG SDC Y Race: C Location: [place] [address] Anesthesia: Postop Eval I Current Vital Signs Temperature: 98.1 F Pulse Rate: 62 Blood Pressure: 77/53 Respiratory Rate: 16 Pulse Ox: 98 Oxygen Delivery Method: Room Air Assessment Airway patent: Yes Spontaneous unlabored respirations: Yes Mental status: Awake nausea: Yes Vomiting: No Anesthesia Complication: Yes Anesthesia Complication Comment:: pt hypotensive and reports nausea inPACU, consult with MD for fluid bolus Fluid Hydration Crystalloid volume administer (ml): 90 Total IV fluid infused: 90 Progress Note Anesthesia document: Postop Eval 1 completed: Yes 09/05/24 0754 > Date _ Jefry Mendiola Signature: Date CC: ~ Signed [facility]03-12-2025 Procedure note [facility] Medical Records Department [address] [facility] [place] [address] Colonoscopy Report MR#: [id number] Acct: [id number] Name: FELIPA LIMA SHREYAS Rep #:[id number] : 1955 68 From: Roderick Tang DO PCP: Dr. Kandace Katz MD Status:[facility] Patient Name: Felipa Lima Procedure Date: 09/05/2024 7:22 AM Date of : 1955 Age: 68 Procedure: Colonoscopy Indications: Screening for colorectal malignant neoplasm Providers: Roderick Tang DO Referring MD: Kandace Katz Medicines: Monitored Anesthesia Care Patient Profile: This is a 68 year old female. Refer to note in patient chart for documentation of history and physical. Patient has symptoms of chronic heartburn. Last Colonoscopy: date unknown. Unable to locate last colonoscopy report. Complications: No immediate complications. Procedure: Pre-Anesthesia Assessment: - Prior to the procedure, a History and Physical was performed, and patient medications and allergies were reviewed. The patient is competent. The risks and benefits of the procedure and the sedation options and risks were discussed with the patient. All questions were answered and informed consent was obtained. Patient identification and proposed procedure were verified by the physician in the pre-procedure area. Mental Status Examination: alert and oriented. Airway Examination: normal oropharyngeal airway and neck mobility. Respiratory Examination: clear to auscultation. CV Examination: normal. Prophylactic Antibiotics: The patient does not require prophylactic antibiotics. Prior Anticoagulants: The patient has taken no anticoagulant or antiplatelet agents. ASA Grade Assessment: II - A patient with mild systemic disease. After reviewing the risks and benefits, the patient was deemed in satisfactory condition to undergo the procedure. The anesthesia plan was to use monitored anesthesia care (MAC). Immediately prior to administration of medications, the patient was re-assessed for adequacy to receive sedatives. The heart rate, respiratory rate, oxygen saturations, blood pressure, adequacy of pulmonary ventilation, and response to care were monitored throughout the procedure. The physical status of the patient was re-assessed after the procedure. After I obtained informed consent, the scope was passed under direct vision. Throughout the procedure, the patient's blood pressure, pulse, and oxygen saturations were monitored continuously. The Colonoscope was introduced through the anus and advanced to the cecum, identified by appendiceal orifice and ileocecal valve. The colonoscopy was performed without difficulty. The patient tolerated the procedure well. The quality of the bowel preparation was adequate. The ileocecal valve, appendiceal orifice, and rectum were photographed. Scope In: 7:24:31 AM Scope Withdrawal Time 0 hours 11 minutes 30 seconds Scope Out: 7:39:25 AM Total Procedure Duration Time 0 hours 14 minutes 54 seconds Findings: The perianal and digital rectal examinations were normal. Multiple small and large-mouthed diverticula were found in the recto-sigmoid colon, sigmoid colon and descending colon. Two sessile polyps were found in the sigmoid colon and hepatic flexure. The polyps were 7 mm in size. These polyps were removed with a jumbo cold forceps. Resection and retrieval were complete. Verification of patient identification for the specimen was done. Estimated blood loss was minimal. A 9 mm polyp was found in the cecum. The polyp was sessile. The polyp was removed with a cold snare. Resection and retrieval were complete. Verification of patient identification for the specimen was done. Estimated blood loss was minimal. Stool was found in the cecum. There was a medium-sized lipoma, at the hepatic flexure. Impression: - Diverticulosis in the recto-sigmoid colon, in the sigmoid colon and in the descending colon. - Two 7 mm polyps in the sigmoid colon and at the hepatic flexure, removed with a jumbo cold forceps. Resected and retrieved. - One 9 mm polyp in the cecum, removed with a cold snare. Resected and retrieved. - Stool in the cecum. - Medium-sized lipoma at the hepatic flexure. Recommendation: - Discharge patient to home. - Resume previous diet. - Continue present medications. - Await pathology results. - Repeat colonoscopy in 3 years for surveillance. Procedure Code(s): --- Professional --- 51016, Colonoscopy, flexible; with removal of tumor(s), polyp(s), or other lesion(s) by snare technique 37685, 59, Colonoscopy, flexible; with biopsy, single or multiple CPT copyright 2021 [employer]. All rights reserved. The codes documented in this report are preliminary and upon chief lock tender operator review may be revised to meet current compliance requirements. Roderick Tang DO 09/05/2024 7:50:20 AM This report has been signed electronically. Number of Addenda: 0 Note Initiated On: 09/05/2024 7:22 AM 09/05/24 0750 Date _ Roderick Tang DO Cosigner Signature: Date (if indicated) CC: Dr. Kandace Katz MD; Roderick Tang DO ~ Date Dictated: 09/05/24721 Date Transcribed: County Agricultural Agent: RF Signed [facility]03-12-2025 Procedure note [facility] Medical Records Department [address] [facility] [place] [address] Operative Report - CC Letter MR#: [id number] Acct: [id number] Name: FELIPA LIMA SHREYAS Rep #:[id number] : 1955 68 From: Roderick Tang DO PCP: Dr. Kandace Katz MD Status:[facility] 09/05/2024 Kandace Katz [address] [facility] [address] Re : Colonoscopy procedure for Felipa Lima Dear Dr. Katz This procedure was performed on Thursday, September 05, 2024. My impressions and recommendations are as follows: Impressions : - Diverticulosis in the recto-sigmoid colon, in the sigmoid colon and in the descending colon. - Two 7 mm polyps in the sigmoid colon and at the hepatic flexure, removed with a jumbo cold forceps. Resected and retrieved. - One 9 mm polyp in the cecum, removed with a cold snare. Resected and retrieved. - Stool in the cecum. - Medium-sized lipoma at the hepatic flexure. Recommendations : - Discharge patient to home. - Resume previous diet. - Continue present medications. - Await pathology results. - Repeat colonoscopy in 3 years for surveillance. My findings are described in the full procedure note, which is enclosed. If I can be of further assistance, please feel free to contact me at . Sincerely, Roderick Tang DO 09/05/2024 7:50:20 AM This report has been signed electronically. 09/05/24 075 Date _ Roderick Hellerigntaurus Signature: Date (if indicated) CC: Dr. Kandace Katz MD; Roderick Tang DO ~ Date Dictated: 09/05/24721 Date Transcribed: County Agricultural Agent: RF Signed [facility]03-12-2025 Procedure note [facility] Medical Records Department [address] [place] [address] EGD Report MR#: [id number] Acct: [id number] Name: FELIPA LIMA SHREYAS Rep #:[id number] : 1955 68 From: Roderick Tang DO PCP: Dr. Kandace Katz MD Status:[facility] Patient Name: Felipa Bernhart Procedure Date: 09/05/2024 6:14 AM Date of : 1955 Age: 68 Procedure: Upper GI endoscopy Indications: Heartburn Providers: DO Eli Mccray MD: Kandace Katz Medicines: Monitored Anesthesia Care Patient Profile: This is a 68 year old female. Refer to note in patient chart for documentation of history and physical. Patient has symptoms of chronic heartburn. Complications: No immediate complications. Procedure: Pre-Anesthesia Assessment: - Prior to the procedure, a History and Physical was performed, and patient medications and allergies were reviewed. The patient is competent. The risks and benefits of the procedure and the sedation options and risks were discussed with the patient. All questions were answered and informed consent was obtained. Patient identification and proposed procedure were verified by the physician in the pre-procedure area. Mental Status Examination: alert and oriented. Airway Examination: normal oropharyngeal airway and neck mobility. Respiratory Examination: clear to auscultation. CV Examination: normal. Prophylactic Antibiotics: The patient does not require prophylactic antibiotics. Prior Anticoagulants: The patient has taken no anticoagulant or antiplatelet agents. ASA Grade Assessment: II - A patient with mild systemic disease. After reviewing the risks and benefits, the patient was deemed in satisfactory condition to undergo the procedure. The anesthesia plan was to use monitored anesthesia care (MAC). Immediately prior to administration of medications, the patient was re-assessed for adequacy to receive sedatives. The heart rate, respiratory rate, oxygen saturations, blood pressure, adequacy of pulmonary ventilation, and response to care were monitored throughout the procedure. The physical status of the patient was re-assessed after the procedure. After obtaining informed consent, the endoscope was passed under direct vision. Throughout the procedure, the patient's blood pressure, pulse, and oxygen saturations were monitored continuously. The Colonoscope was introduced through the mouth, and advanced to the second part of duodenum. The upper GI endoscopy was accomplished without difficulty. The patient tolerated the procedure well. Scope In: 7:10:18 AM Scope Out: 7:22:38 AM Total Procedure Duration Time 0 hours 12 minutes 20 seconds Findings: The Z-line was irregular and was found 39 cm from the incisors. Biopsies were taken with a cold forceps for histology. Verification of patient identification for the specimen was done. Estimated blood loss was minimal. A medium-sized hiatal hernia was present. Diffuse prominent gastric folds were found in the entire examined stomach. A single 15 mm semi-pedunculated polyp with bleeding was found in the second portion of the duodenum. For hemostasis, one hemostatic clip was successfully placed. 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 There was no bleeding at the end of the procedure. Biopsies were taken with a cold forceps for histology. Verification of patient identification for the specimen was done. Estimated blood loss was minimal. Impression: - Z-line irregular, 39 cm from the incisors. Biopsied. - Medium-sized hiatal hernia. - Enlarged gastric folds. - A single duodenal polyp. Clip was placed. Clip melting supervisor: [employer]. Biopsied. Recommendation: - Discharge patient to home. - Resume previous diet. - Continue present medications. - Await pathology results. - Repeat upper endoscopy for surveillance based on pathology results. Procedure Code(s): --- Professional --- 41214, 59, Esophagogastroduodenoscopy, flexible, transoral; with control of bleeding, any method 06774, 51, Esophagogastroduodenoscopy, flexible, transoral; with biopsy, single or multiple CPT copyright 2021 [employer]. All rights reserved. The codes documented in this report are preliminary and upon chief lock tender operator review may be revised to meet current compliance requirements. Roderick Tang DO 09/05/2024 7:46:11 AM This report has been signed electronically. Number of Addenda: 0 Note Initiated On: 09/05/2024 6:14 AM 09/05/24 0746 Date _ Roderick Tang DO Cosigner Signature: Date (if indicated) CC: Dr. Kandace Katz MD; Roderick Tang DO ~ Date Dictated: 09/05/24 0614 Date Transcribed: County Agricultural Agent: RF Signed [facility]03-12-2025 Procedure note [facility] Medical Records Department [address] [facility] [place] [address] Operative Report - CC Letter MR#: [id number] Acct: [id number] Name: FELIPA LIMA Rep #:[id number] : 1955 68 From: Roderick Tang DO PCP: Dr. Kandace Katz MD Status:[facility] 09/05/2024 Kandace Katz [address] [address] Re : Upper GI endoscopy procedure for Felipa Lima Dear Dr. Katz This procedure was performed on Thursday, September 05, 2024. My impressions and recommendations are as follows: Impressions : - Z-line irregular, 39 cm from the incisors. Biopsied. - Medium-sized hiatal hernia. - Enlarged gastric folds. - A single duodenal polyp. Clip was placed. 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 Biopsied. Recommendations : - Discharge patient to home. - Resume previous diet. - Continue present medications. - Await pathology results. - Repeat upper endoscopy for surveillance based on pathology results. My findings are described in the full procedure note, which is enclosed. If I can be of further assistance, please feel free to contact me at . Sincerely, Roderick Tang DO 09/05/2024 7:46:11 AM This report has been signed electronically. 09/05/2446 Date _ Roderick Tang DO Cosigner Signature: Date (if indicated) CC: Dr. Kandace Katz MD; Roderick Tang DO ~ Date Dictated: 09/05/24613 Date Transcribed: County Agricultural Agent: RF Signed [facility]03-12-2025 History and physical note [facility] Medical Records Department [address] [facility] [place] [address] History & Physical Exam 09/05/24 0655 MR#: [id number] Acct: [id number] Name: FELIPA LIMA SHREYAS Rep #:[id number] : 1955 68 From: Roderick Tang DO PCP: Dr. Kandace Katz MD Status:[facility] Location: [place] [address] HPI - General General Date of Admission: 09/05/24 Date of Service: 09/05/24 Chief Complaint: sandoval's and CRS HPI Narrative Chief Complaint: Sandoval's, fatty liver, colon screening 68y/o female referred by Dr. Katz for Sandoval's, screening colonoscopy and fatty liver. PMH is significant for CKD3 and psoriasis. She reports a history ofperforated duodenal ulcer in 2018 and Sandoval's esophagus diagnosed in 2018. ABDUS performed May 2023 revealed hepatomegaly with liver steatosis. EGD 2020 Sandoval's EGD 2018 duodenal ulcer with hemorrhage and perforation HAV Total Ab: HBVsA10/20/2020 negative HBVsAb: 10/20/2020 negative HBV Core Ab Total: 10/27/2022 negative HCV Ab: 12/04/2018 negative CBC: January 2024 CMP: January 2024 ABD US: 06/25/[address] Chest/ABD/Pelvis w/o contrast 09/29/2023 hepatomegaly, splenomegaly, left thyroid nodule and pyelonephritis. HB well controlled on pantoprazole - denies any dysphagia - denies any N/V - denies any weight loss - pending thyroid nodule biopsy - reports no known cause of duodenal ulcer EtOH: once a year Family h/o liver disease: denies Tattoos - yes Brother with colon CA - diagnosed in 50's - reports her bowels are fairly regular - occasional diarrhea - denies any bleeding - reports she had a colonoscopy in her 20's - implant right hip to control bladder frequency Skyrizi for psoriasis PFSH Medical History Thyroid disease Arthritis Bladder disease Easy bruising Back pain Syncope History of hiatal hernia History of renal disease Leg cramps History of pain when walking Hx of lipoma Wears glasses Post-menopausal Former smoker Hydronephrosis, right Right ureteral calculus History of uterine leiomyoma Fatigue GERD (gastroesophageal reflux disease) Home Medications ?Medication ?Instructions ?Recorded ?Last Taken ?Type allopurinol 100 mg tablet 100 mg PO DAILY 10/13/2105/21 History sodium bicarbonate 650 mg tablet 650 mg PO TID 2 09/04/24 History pantoprazole 40 mg tablet,delayed 20 mg PO DAILY 07/1609/05/24 History release risankizumab-rzaa 150 mg/mL 150 mg subcut Q12W 5 Unknown History subcutaneous pen injector (Skyrizi) acetaminophen 500 mg capsule 500 mg PO Q6H PRN pain 09/04/24 History nitrofurantoin macrocrystal 100 mg 100 mg PO Q12H PRN BLADDER 07/17/24 Unknown History capsule oxybutynin chloride 10 mg 10 mg PO QDAY 07/17/2409/05 History tablet,extended release 24 hr Allergy/AdvReac Type Severity Reaction Status Date / Time cephalexin Allergy Severe Other Verified 09/05/24 05:48 Iodinated Contrast Media Allergy Mild rash Verified 09/05/24 05:48 latex Allergy Rash Verified 09/05/24 05:48 wool Allergy Rash Verified 09/05/24 05:48 codeine AdvReac Mild gi upset Verified 09/05/24 05:48 morphine AdvReac Mild gi upset Verified 09/05/24 05:48 Family History Father Diabetes Hypertension Cancer skin Mother Hypertension Brother Colon cancer Surgical History History of bladder surgery History of incision and drainage History of esophagogastroduodenoscopy (EGD) Hx of biopsy History of surgery History of ureter stent Hx of foot surgery History of hysterectomy History of colonoscopy Social History Smoking Status: Former smoker how long ago did patient quit smokin years ROS Constitutional Constitutional: Denies fatigue, fever(s), poor appetite, weight gain or weight loss Gastrointestinal Gastrointestinal: Denies belching, bloating, change in bowel habits, change in stool character, chewing difficulty, coffee ground emesis, constipation, cramping, diarrhea, dyspepsia, dysphagia, earlysatiety, excessive flatus, fecalincontinence, heartburn, hematemesis, hematochezia, hemorrhoids, loose stools, melena, nausea, odynophagia, rectal bleeding, tenesmus, vomiting or weight changes Vital Signs Vital Signs Vital Signs: 09/05/24 05:50 09/05/24 05:50 09/05/24 06:13 Temperature 98.3 F 98.3 F Temperature Source Temporal Pulse Rate 64 64 Respiratory Rate 18 18 Respiratory Pattern Normal Blood Pressure 102/64 102/64 Blood Pressure Mean 76 Blood Pressure Source Monitor Blood Pressure Position Semi-Fowlers Blood Pressure Location Left Arm Pulse Ox 97 97 Oxygen Delivery Method Room Air Room Air Weight Weight: 227 lb 1.218 oz Body Mass Index (BMI) 40.2 Physical Exam Const alert, oriented x3, no apparent distress and healthy appearing General Appearance: cooperative GI normal to inspection, nondistended, normoactive bowel sounds, soft to palpation,non-tender and non-distended Percussion: normal to percussion Rectal Exam: deferred Assessment & Plan Assessment/Plan (1) Sandoval esophagus: QUALIFIERS: Sandoval's esophagus type: without dysplasia QualifiedCode(s): K22.70 - 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 (2) Screen for colon cancer: PLAN: Plan Assessment and Plan Assessment and Plan (1) Metabolic dysfunction-associated steatotic liver disease (MASLD): Status: Acute (2) Sandoval esophagus: Status: Acute Qualifiers: Sandoval's esophagus type: without dysplasia Qualified Code(s): K22.70 -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 (3) Screen for colon cancer: Status: Acute (4) Family history of colon cancer: Status: Acute Comment: Brother in his early 50's Orders: Orders CBC W/Diff, Automated Today K22.70 - 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, K76.0 - Fatty (change of) liver, not elsewhere classified, Z12.11 - Encounter for screening for malignant neoplasm of colon, Z80.0 - Family history of malignant neoplasm of digestive organs Comprehensive Metabolic Profil Today K22.70 - 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, K76.0 - Fatty (change of) liver, not elsewhere classified, Z12.11 - Encounter for screening for malignant neoplasmof colon, Z80.0 - Family history of malignant neoplasm of digestive organs Hepatitis A AB, Total Today K22.70 - 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, K76.0 - Fatty (change of) liver, not elsewhere classified, Z12.11 - Encounter for screening for malignant neoplasm of colon, Z80.0 - Family history of malignant neoplasm of digestive organs Hepatitis B Core Ab Total Today K22.70 - 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,K76.0 - Fatty (change of) liver, not elsewhere classified, Z12.11 - Encounter for screening for malignant neoplasm of colon, Z80.0 - Family history of malignant neoplasm of digestive organs Hepatitis B Surface Antibody Today K22.70 - 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, K76.0 - Fatty (change of) liver, not elsewhere classified, Z12.11 - Encounter for screening for malignant neoplasm of colon, Z80.0 - Family history of malignant neoplasm of digestive organs Hepatitis B Surface Antigen Today K22.70 - 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, K76.0 - Fatty (change of) liver, not elsewhere classified, Z12.11 - Encounter for screening for malignant neoplasm ofcolon, Z80.0 - Family history of malignant neoplasm of digestive organs Hepatitis C Antibody Today K22.70 - 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, K76.0 - Fatty (change of) liver, not elsewhere classified, Z12.11 - Encounter for screening for malignant neoplasm of colon,Z80.0 - Family history of malignant neoplasm of digestive organs Medications: New peg 3350-electrolytes 236-22.74-6.74 -5.86 gram (Golytely) take as directed for split dose bowel prep 240 mL PO Q10M 4,000 mL 0RF Colonoscopy Plan 68y/o female referred by Dr. Katz for Sandoval's, screening colonoscopy and fatty liver. PMH is significant for CKD3 and psoriasis. She reports a history ofperforated duodenal ulcer in 2018 and Sandoval's esophagus diagnosed in 2020. Shedenies any HB, N/V, dysphagia or weight loss. She is on pantoprazole 20mg daily and we have discussed indefinite use of PPI with known history of Sandoval's. I have scheduled her for an EGD as well as screening colonoscopy. Her family history is significant for brother with colon cancer. Prior imaging (US 2022/CT 2023) were revealing for hepatomegaly, liver steatosis and splenomegaly. We havereviewed MASLD and I have have ordered labs as well as FibroScan for additional evaluation. Elastography - TUKZ Undergarments ELF - Enhanced Liver Fibrosis (ELF)? Test CBC CMP Hepatitis panel EGD and Colonoscopy - Golyte bowel prep due to h/o CKD Indefinite use of PPI for Sandoval's Patient Instructions: (MASLD) Metabolic dysfunction-associated steatotic liver disease (MASLD) is a spectrum of disease that ranges from a more benign condition of nonalcoholic fatty liver (NAFL) to nonalcoholic steatohepatitis (INFANTE), which is at the more severe end of the spectrum. In NAFL, hepatic steatosis is present without evidence of inflammation, whereas in INFANTE, hepatic steatosis is associated with lobular inflammation and apoptosis that can lead to fibrosis and cirrhosis. Lifestyle modifications are the cornerstone of treatment for fatty liver disease. These include optimizing care for diabetes, high cholesterol and obesity. - Weight loss is the primary therapy for most patients with MASLD. We recommend weight loss for allpatients with MASLD who are overweight (body mass index [BMI] =25 kg/m2) or have obesity (BMI =30 kg/m2) because fat accumulation in the liver leads to inflammation which leads to irreversible scarring. Unchecked liver inflammation and scarring can increase the risk of developing liver cancer and cardiovascular complications, such as heart attack and stroke. Weight loss can lead to improvement inliver biochemical tests, liver histology, serum insulin levels, and quality of life. Ideally, aim to lose between 5-10% of total body weight (1-2 lb per week) over the next 6 months. This can be achieved by adhering to a very low carbohydrate diet (60 g/day), high in lean protein and vegetables (variant of the Mediterranean diet). Reducing portion sizes can also make weight loss easier. [id number] intensity cardiovascular and/or resistance exercise (30 min, 3-4 days/week) paired with dietary modifications is helpful, as long as such an exercise regimen is permitted by your longitudinal float operator or primary care provider. Dietary counseling and/or a physician managed weight loss program is oftenextremely helpful in attaining this goal. - Small studies have shown that up to 3 cups of black coffee (no sugar, no cream) can be beneficialfor liver health in patients with fatty liver. However, this should be avoided if coffee is a knowntrigger for gastrointestinal symptoms. - There is no known safe amount of alcohol use in fatty liver disease. Avoidance is recommended. - Smoking should also be avoided as it has been independently associated with the development of fatty liver disease and predisposes to insulin resistance and diabetes. Plan Details Follow Up: 3 Months 09/05/24 0657 Cosigner Signature (if applicable): CC: Dr. Kandace Katz MD; Roderick Tang, ~ Signed [facility]03-12-2025 [facility] Medical Records Department [address] [place] [address] History Physical Exam 09/05/24 0655 MR#: [id number] Acct: [id number] Name: FELIPA LIMA SHREYAS Rep #: [id number] : 1955 68 From: Roderick Tang DO PCP: Dr. Kandace Katz MD Status:[facility] Location: [place] [address] HPI - General General Date of Admission: 09/05/24 Date of Service: 09/05/24 Chief Complaint: sandoval's and CRS HPI Narrative Chief Complaint: Sandoval's, fatty liver, colon screening 68y/o female referred by Dr. Katz for Sandoval's, screening colonoscopy and fatty liver. PMH is significant for CKD3 and psoriasis. She reports a history of perforated duodenal ulcer in 2019 and Sandoval's esophagus diagnosed in 2018. ABD US performed May 2023 revealed hepatomegaly with liver steatosis. EGD 2020 Sandoval's EGD 2019 duodenal ulcer with hemorrhage and perforation HAV Total Ab: HBVsA10/20/2020 negative HBVsAb: 10/20/2020 negative HBV Core Ab Total: 10/27/2022 negative HCV Ab: 12/04/2018 negative CBC: January 2024 CMP: January 2024 ABD US: 06/25/[address] Chest/ABD/Pelvis w/o contrast 09/29/2023 hepatomegaly, splenomegaly, left thyroid nodule and pyelonephritis. HB well controlled on pantoprazole - denies any dysphagia - denies any N/V - denies any weight loss - pending thyroid nodule biopsy - reports no known cause of duodenal ulcer EtOH: once a year Family h/o liver disease: denies Tattoos - yes Brother with colon CA - diagnosed in 50's - reports her bowels are fairly regular - occasional diarrhea - denies any bleeding - reports she had a colonoscopy in her 20's - implant right hip to control bladder frequency Skyrizi for psoriasis PFSH Medical History Thyroid disease Arthritis Bladder disease Easy bruising Back pain Syncope History of hiatal hernia History of renal disease Leg cramps History of pain when walking Hx of lipoma Wears glasses Post-menopausal Former smoker Hydronephrosis, right Right ureteral calculus History of uterine leiomyoma Fatigue GERD (gastroesophageal reflux disease) Home Medications ???Medication ???Instructions ???Recorded ???Last Taken ???Type allopurinol 100 mg tablet 100 mg PO DAILY 10/13/21 09/04/24 History sodium bicarbonate 650 mg tablet 650 mg PO TID 10/13/21 09/04/24 Hi story pantoprazole 40 mg tablet,delayed 20 mg PO DAILY 07/16/24 09/05/24 History release risankizumab-rzaa 150 mg/mL 150 mg subcut Q12W 07/16/24 Unknow n History subcutaneous pen injector (James) acetaminophen 500 mg capsule 500 mg PO Q6H PRN pain 07/17/24 History nitrofurantoin macrocrystal 100 mg 100 mg PO Q12H PRN BLADDER 07/17 Unknown History capsule oxybutynin chloride 10 mg 10 mg PO QDAY 07/17/24 09/05/24 Hi story tablet,extended release 24 hr Allergy/AdvReac Type Severity Reaction Status Date / Time cephalexin Allergy Severe Other Verified 09/05/24 05:48 Iodinated Contrast Media Allergy Mild rash Verified 09/05/24 05:48 latex Allergy Rash Verified 09/05/24 05:48 wool Allergy Rash Verified 09/05/24 05:48 codeine AdvReac Mild gi upset Verified 09/05/24 05:48 morphine AdvReac Mild gi upset Verified 09/05/24 05:48 Family History Father Diabetes Hypertension Cancer skin Mother Hypertension Brother Colon cancer Surgical History History of bladder surgery History of incision and drainage History of esophagogastroduodenoscopy (EGD) Hx of biopsy History of surgery History of ureter stent Hx of foot surgery History of hysterectomy History of colonoscopy Social History Smoking Status: Former smoker how long ago did patient quit smokin years ROS Constitutional Constitutional: Denies fatigue, fever(s), poor appetite, weight gain or weight loss Gastrointestinal Gastrointestinal: Denies belching, bloating, change in bowel habits, change in stool character, chewing difficulty, coffee ground emesis, constipation, cramping, diarrhea, dyspepsia, dysphagia, early satiety, excessive flatus, fecal incontinence, heartburn, hematemesis, hematochezia, hemorrhoids, loose stools, melena, nausea, odynophagia, rectal bleeding, tenesmus, vomiting or weight changes Vital Signs Vital Signs Vital Signs: 09/05/24 05:50 09/05/24 05:50 09/05/24 06:13 Temperature 98.3 F 98.3 F Temperature Source Temporal Pulse Rate 64 64 Respiratory Rate 18 18 Respiratory Pattern Normal Blood Pressure 102/64 102/64 Blood Pressure Mean 76 Blood Pressure Source Monito (more content not included)...[facility]03-12-2025 Consult note [facility] Medical Records Department [address] [place] [address] Pre-Anesthesia Evaluation 09/05/24 0602 MR#: [id number] Acct: [id number] Name: FELIPA LIMA SHREYAS Rep #:[id number] : 1955 68 From: Keron Bowen MD PCP: Dr. Kandace Katz MD Status:REG SDC Y Race: C Location: [place] [address] ASA Classification* ASA Classification ASA Classification: 3 (This is a 68 yo F with fatty liver disease, sandoval esophagus, hx of duodenal ulcers, right kidney stones, gerd, and stage 3 CKD presenting for EGD/colonoscopy.) Assessment & Plan Anesthesia* Anesthesia Assessment Anesthesia Assessment: Discussed sedation and/or anesthesia options, risks, benefits, and alternatives with patient/parents/legal guardian/POA. Questions invited. The patient/parents/legal guardian/POA seems to understand and agrees to proceedwith anesthesia plan. Reviewed the physical assessment, medical history, allergy history and patient home medications list prior to surgery/procedure/anesthetic and documented any changes. Performed airway and anesthesia risk assessments. Anesthesia Type Anesthesia Type: General History Source History Obtained from:: Patient and Chart Anesthesia Focused Assessment* Temperature: 98.3 F Pulse Rate: 64 Blood Pressure: 102/64 Respiratory Rate: 18 Pulse Ox: 97 Oxygen Delivery Method: Room Air Airway Assessment Mouth opens: >3 cm Mallampati Score: III Teeth Condition: Intact Neck Range of motion (ROM): Full ROM Focused Labs Anesthesia Preop lab: CBC WBC 5.3 K/mm3 (4.4-11.0) 07/17/24 12:07 07/17/24 RBC 4.30 M/mm3 (4.2-5.4) 07/17/24 12:07 07/17/24 Hgb 12.9 g/dL (12.0-15.0) 07/17/24 12:07 07/17/24 Hct 41.2 % (37-47) 07/17/24 12:07 07/17/24 Plt Count 195 K/mm3 (150-450) 07/17/24 12:07 07/17/24 CHEMISTRY Potassium 4.1 mmol/L (3.5-5.1) 07/17/24 12:07 07/17/24 Sodium 140 mmol/L (136-145) 07/17/24 12:07 07/17/24 BUN 34 mg/dL (7-18) H 07/17/24 12:07 07/17/24 Creatinine 1.60 mg/dL (0.55-1.02) H 07/17/24 12:07 Glucose 112 mg/dL (74-106) H 07/17/24 12:07 07/17/24 COAG Pre-Assessment Diagnosis/Proposed Procedure Planned Operative Procedure(s): EGD/CSCOPE Anesthesia History 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 When Was Last Pacemaker Check QUESTION #4 FULL TEXT: You/Your Family Experience fever (hyperthermia) with Anesthesia Last Oral Intake Last Oral intake: Last Oral Intake NPO since 18:30 09/05/24 05:50 Meds taken in AM with sips of water? Meds patient instructed to take am of surgery PONV PONV - betting clerk: PONV - betting clerk Female Yes 08/31/24 12:44 HX of Motion Sickness No 08/31/24 12:44 HX of N/V After Surgery No 08/31/24 12:44 Non-Smoker Yes 08/31/24 12:44 Duration of Surgery greater No 08/31/24 12:44 than 60 minutes Number of Risk Factors 2 08/31/24 12:44 PONV Score Moderate Risk 08/31/24 12:44 Height & Weight Height & Weight: Anesthesia: Height & Weight Height 5 ft 3 in 09/05/24 05:50 Weight: 103 kg 09/05/24 05:50 Body Mass Index (BMI) 40.2 09/05/24 05:50 Respiratory Assessment Respiratory Assessment - betting clerk: Respiratory Tract Infection Hx - betting clerk Hx Respiratory Tract Infection No 08/31/24 12:44 STOP Sleep Apnea STOP Sleep Apnea - betting clerk: STOP Sleep Apnea - betting clerk Hx Hypertension No 08/31/24 12:44 Hx Sleep Apnea No 08/31/24 12:44 CPAP BIPAP Do you snore loudly (louder Yes 08/31/24 12:44 than talking or can be heard Do you often feel tired/ No 08/31/24 12:44 fatigued/ sleepy during daytime? Has anyone observed you stop No 08/31/24 12:44 breathing during sleep? STOP Results Negative 08/31/24 12:44 QUESTION #5 FULL TEXT : Do you snore loudly (louder than talking or can be heard through closeddoors)? 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 Specify any problems Hx of Preganancy in last 3 No 08/31/24 12:44 Months Nurse Filling Out Transfusion DSCHRIBER 08/31/24 12:44 & Questions: Date: 08/31/24 08/31/24 12:44 Time: 12:46 08/31/24 12:44 Patient unable to answer at this time (ie. confused, unrespo /Reproduction History /Reproductive History - betting clerk: /Reproductive Hx- betting clerk Hx Now No 08/31/24 12:44 Gestational Age (in weeks): EDC: Hx Hx Para Hx Section SAB No 08/31/24 12:44 PFSH Medical History (Updated 08/31/24 @ 12:56 by Lydia Jones) Thyroid disease Arthritis Bladder disease Easy bruising Back pain Syncope History of hiatal hernia History of renal disease Leg cramps History of pain when walking Hx of lipoma Wears glasses Post-menopausal Former smoker Hydronephrosis, right Right ureteral calculus History of uterine leiomyoma Fatigue GERD (gastroesophageal reflux disease) Home Medications ?Medication ?Instructions ?Recorded ?Last Taken ?Type allopurinol 100 mg tablet 100 mg PO DAILY 10/13/2105/21 History sodium bicarbonate 650 mg tablet 650 mg PO TID 2 09/04/24 History pantoprazole 40 mg tablet,delayed 20 mg PO DAILY 07/1609/05/24 History release risankizumab-rzaa 150 mg/mL 150 mg subcut Q12W 5 Unknown History subcutaneous pen injector (Keniai) acetaminophen 500 mg capsule 500 mg PO Q6H PRN pain 09/04/24 History nitrofurantoin macrocrystal 100 mg 100 mg PO Q12H PRN BLADDER 07/17/24 Unknown History capsule oxybutynin chloride 10 mg 10 mg PO QDAY 07/17/2409/05 History tablet,extended release 24 hr Allergy/AdvReac Type Severity Reaction Status Date / Time cephalexin Allergy Severe Other Verified 09/05/24 05:48 Iodinated Contrast Media Allergy Mild rash Verified 09/05/24 05:48 latex Allergy Rash Verified 09/05/24 05:48 wool Allergy Rash Verified 09/05/24 05:48 codeine AdvReac Mild gi upset Verified 09/05/24 05:48 morphine AdvReac Mild gi upset Verified 09/05/24 05:48 Family History Father Diabetes Hypertension Cancer skin Mother Hypertension Brother Colon cancer Surgical History (Updated 08/31/24 @ 12:56 by Lydia Jones) History of bladder surgery History of incision and drainage History of esophagogastroduodenoscopy (EGD) Hx of biopsy History of surgery History of ureter stent Hx of foot surgery History of hysterectomy History of colonoscopy Social History Smoking Status: Former smoker how long ago did patient quit smokin years Review of Systems (Anesthesia) ROS Narrative System reviewed and no additional complaints, except as documented. Physical Exam Const alert and oriented x3 Nutritional Appearance: obese Resp normal respiratory effort, normal air movement and clear to auscultation bilaterally Cardio regular rate, regular rhythm, no murmurs and diaphoretic 09/05/2413 > Date _ Keron Bowen MD Cosigner Signature: Date CC: ~ Signed [facility]03-11-2025 NoteHNO ID: [id number] Author: PORSHA TRAMMELL MD Service: ? Author Type: Physician Type: Progress Notes Filed: 09/04/2024 12:22 Note Text: ESTABLISHED PATIENT OFFICE VISIT The patient is here for follow-up of urgency urinary incontinence. She is overall improved after having the InterStim placed, but she is also taking oxybutynin 10 mg. She has occasional urgency urinary incontinence. She denies dysuria. Her CT scan from the fall 2023 shows right lower pole stone only. No obstruction no hydronephrosis. (My review) LAB RESULTS Creatinine Date Value Ref Range Status 10/12/2023 1.88 (H) 0.51 - 0.95 mg/dL Final Comment: Patients receiving either N-Acetylcysteine (NAC) or Metamizole prior to venipuncture, may have falsely depressed results. No results found for: PSA, PSASC GLUCOSE UA (POCT) (mg/dL) Date Value 09/04/2024 Negative BILIRUBIN UA (POCT) (no units) Date Value 09/04/2024 Negative KETONE UA (POCT) (mg/dL) Date Value 09/04/2024 Negative SPECIFIC GRAVITY UA (POCT) (no units) Date Value 09/04/2024 1.010 HEMOGLOBIN/BLOOD UA (POCT) (no units) Date Value 09/04/2024 Moderate (A) PH UA (POCT) (no units) Date Value 09/04/2024 6.0 PROTEIN UA (POCT) (mg/dL) Date Value 09/04/2024 Trace (A) UROBILINOGEN UA (POCT) (E.U./dL) Date Value 09/04/2024 0.2 NITRITE UA (POCT) (no units) Date Value 09/04/2024 Negative LEUKOCYTES UA (POCT) (no units) Date Value 09/04/2024 Moderate (A) COLOR UA (POCT) (no units) Date Value 09/04/2024 Yellow CLARITY UA (POCT) (no units) Date Value 09/04/2024 Clear ] ALLERGIES Allergen Reactions Keflex [Cephalexin] Rash Codeine GI Upset Gadolinium-Containi* Hives Latex Rash Morphine GI Upset Wool Rash Iodinated Contrast * Hives, Rash MEDICATIONS: nitrofurantoin monohydrate and macrocrystal (MACROBID) 100 mg capsule oxybutynin ER (DITROPAN XL) 10 mg 24 hr tablet Take 1 tablet by mouth once daily. sodium citrate-citric acid (BICITRA) 500-334 mg/5 mL solution TAKE 10 ML BY MOUTH THREE TIMES DAILY (DILUTED IN 1 TO 3 OUNCES OF WATER) SKYRIZI 150 mg/mL injection Inject subcutaneously. Once every 3 months due october 2023-- will take following procedure. sodium bicarbonate 650 mg tablet Take 650 mg by mouth three times daily. furosemide (LASIX) 20 mg tablet Take 20 mg by mouth as needed. For swelling in legs hasn't taken in awhile allopurinol (ZYLOPRIM) 100 mg tablet Take 100 mg by mouth every morning. pantoprazole DR (PROTONIX) 40 mg tablet Take 40 mg by mouth every morning. REVIEW OF SYSTEMS GENERAL:no unintentional weight loss, malaise or fevers. NEUROLOGIC: pt is alert and oriented GASTROINTESTINAL: No nausea, vomiting, or diarrhea GENITOURINARY: See HPI MUSCULOSKELETAL: Negative for joint pain or swelling, back pain or muscle pain SKIN: Negative for lesions, rash, and itching. ACTIVE PROBLEM LIST Gastroesophageal Reflux Disease Vicki (Acute Kidney Injury) (Hcc) Morbidly Obese (Hcc) Calculus of Ureter Obesity, Class III, BMI >= 40 Stage 5 Chronic Kidney Disease (Hcc) Sensory Urge Incontinence Preop Testing Acute Cystitis With Hematuria Calculus of Kidney HISTORIES PAST MEDICAL HISTORY Diagnosis Date Chronic kidney disease, stage IV (severe) ([facility]) Dr. Nickerson Kidney stones PONV (postoperative nausea and vomiting) Sensory urge incontinence 2023 PAST SURGICAL HISTORY Procedure Laterality Date COLON SURGERY HX repair rupture CYSTOSCOPY several times ESWL F TOTAL ABDOMINAL HYSTERECTOMY FRACTURE SURGERY Right heel INCISION AND DRAINAGE OF WOUND (IANDD) HX upper left thigh LIPOMA (LARGE) upper abd. [employer] 1X4 POCKET ADAPTER Left 09/2023 PAST SURGICAL HISTORY OF biopsy on the thyroid (benign) PT ED OBSTETRICS AND GYNECOLOGY [facility] FAMILY HISTORY Problem Relation Age of Onset Colon Cancer Brother SOCIAL HISTORY Social History Tobacco Use Smoking status: Former Current packs/day: 0.00 Average packs/day: 0.5 packs/day for 20.0 years (10.0 ttl pk-yrs) Types: Cigarettes Start date: 1986 Quit date: 2006 Years since quittin.2 Smokeless tobacco: Never Vaping Use Vaping status: Never Used Substance Use Topics Alcohol use: Yes Comment: very seldom Drug use: Never PHYSICAL EXAMINATION General appearance: Well appearing, alert, in no acute distress, well-hydrated, well nourished Psych Alert and oriented to person, place and time Cardiac: no peripheral edema Pulmonary: normal respiratory effort ASSESSMENT/PLAN: 1. Sensory urge incontinence [N39.41] - ICD9: 788.31, ICD10: N39.41 (primary diagnosis) As well as InterStim placement. I will have her follow-up with our nurse practitioner for reprogramming. In the meantime continue oxybutynin XR. My goal would be to stop the oxybutynin XR. - BLADDER SCAN - UA DIP, URINE (POC) 2. Kidney stone - ICD9: 592.0, ICD10: N20.0 I plan to observe for now. 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 5:22am Screen for colon cancer acute M arch 2024 5:22am GERD (gastroesophageal reflu x disease) acute September 25, 2024 10:15am Metabolic dysfunction-associated steatotic liver disease (MASLD) acute September 25, 2024 10:15am Nausea acute September 25 10:15am RUQ pain acute September 25 10:15am Metabolic dysfunction-associated steatotic liver disease (MASLD) chronic November 13, 2024 1 2:23pm [facility] Work Phone: 1(781) 417-182901-21-2025 Evaluation note* Diagnosis Onset Date Resolution Status Admit Date Sandoval esophagus acute July 17, 2024 10:27am Family history of colon cancer acute July 17, 2024 10:27am Metabolic dysfunction-associated steatotic liver disease (MASLD) acute July 17 10:27am Screen for colon cancer acute J anuary 2024 10:27am High serum parathyroid hormo ne (PTH) acute July 30 1:32pm Thyroid nodule acute July 302024 1:32pm Sandoval esophagus acute August 252024 5:22am Screen for colon cancer acute M arch 2024 5:22am [facility] Work Phone: 1(331) 595-927401-21-2025 Evaluation note* Diagnosis Onset Date Resolution Status Admit Date Sandoval esophagus acute July 17, 2024 10:27am Family history of colon cancer acute July 17, 2024 10:27am Metabolic dysfunction-associated steatotic liver disease (MASLD) acute July 17 10:27am Screen for colon cancer acute J anuary 2024 10:27am High serum parathyroid hormo ne (PTH) acute July 30 1:32pm Thyroid nodule acute July 302024 1:32pm Sandoval esophagus acute August 252024 5:22am Screen for colon cancer acute M arch 2024 5:22am GERD (gastroesophageal reflu x disease) acute September 25, 2024 10:15am Metabolic dysfunction-associated steatotic liver disease (MASLD) acute September 25, 2024 10:15am Nausea acute September 25 10:15am RUQ pain acute September 25 10:15am [facility] Work Phone: 1(165) 469-733809-29-2024 NoteHNO ID: [id number] Author: LEO BERNARDO RT(R) Service: Radiology Author Type: Technologist Type: Progress Notes Filed: 03/25/2024 13:43 Note Text: Summary: ct Radiology Service Progress Note PATIENT NAME: Felipa Lima DATE OF SERVICE: March 25, 2024 TIME: 1:42 PM PATIENT IDENTITY VERIFICATION COMPLETED USING TWO (2) IDENTIFIERS: Name and Date of confirmed by patient verbally. FALL SCREENING: Has the patient had 2 falls in the last year or 1 fall with injury or currently using an Ambulatory Assistive Device (Walker, Cane, Wheelchair, Crutches, etc.)? No PATIENT GENDER DATA: Female. status: : No status: NO. PATIENT RELEVANT IMPLANT DATA REVIEWED: Not Applicable PATIENT PRESENTS WITH AN IMPLANTABLE OR ATTACHED INTERNSHIP: No RADIOLOGY DEPARTMENT: CT; Exam(s) Completed: Abdomen/Pelvis PERIPHERAL IV DATA: Not applicable SIGNED BY: RT Kuldeep(R) March 25, 2024 1:42 [facility] NoteHNO ID: [id number] Author: JULIA SUAREZ APRN.CREDIT UNION EXAMINER Service: ? Author Type: Nurse Practitioner Type: Progress Notes Filed: 03/06/2024 11:26 Note Text: [facility] ESTABLISHED PATIENT OFFICE VISIT Patient presents with: Sensory urge incontinence Nocturia: Getting up every hr-having issues the last month HISTORY OF PRESENT ILLNESS Felipa Lima is a 68 year old female who is here for follow up of urge incontinence S/p Interstim placement 09/2023 Initially this worked well for her, but now having urgency and frequency again. She notes having pelvic pressure as well. Currently on Ditropan XL 10mg in addition to the Interstim. She has known renal stone, no recent imaging UA +large blood and leuk PVR 0ml Review of Systems The remainder of the ROS was reviewed and is negative. LAB Creatinine Date Value Ref Range Status 10/12/2023 1.88 (H) 0.51 - 0.95 mg/dL Final Comment: Patients receiving either N-Acetylcysteine (NAC) or Metamizole prior to venipuncture, may have falsely depressed results. No results found for: PSA, PSASC GLUCOSE UA (POCT) (mg/dL) Date Value 09/02/2023 Negative BILIRUBIN UA (POCT) (no units) Date Value 09/02/2023 Negative KETONE UA (POCT) (mg/dL) Date Value 09/02/2023 Negative SPECIFIC GRAVITY UA (POCT) (no units) Date Value 09/02/2023 1.020 HEMOGLOBIN/BLOOD UA (POCT) (no units) Date Value 09/02/2023 Large (A) PH UA (POCT) (no units) Date Value 09/02/2023 6.0 PROTEIN UA (POCT) (mg/dL) Date Value 09/02/2023 >=300 (A) UROBILINOGEN UA (POCT) (E.U./dL) Date Value 09/02/2023 0.2 NITRITE UA (POCT) (no units) Date Value 09/02/2023 Positive (A) LEUKOCYTES UA (POCT) (no units) Date Value 09/02/2023 Large (A) COLOR UA (POCT) (no units) Date Value 09/02/2023 Yellow CLARITY UA (POCT) (no units) Date Value 09/02/2023 Clear ] MEDICATIONS oxybutynin ER (DITROPAN XL) 10 mg 24 hr tablet Take 1 tablet by mouth once daily. sodium citrate-citric acid (BICITRA) 500-334 mg/5 mL solution TAKE 10 ML BY MOUTH THREE TIMES DAILY (DILUTED IN 1 TO 3 OUNCES OF WATER) SKYRIZI 150 mg/mL injection Inject subcutaneously. Once every 3 months due october 2023-- will take following procedure. sodium bicarbonate 650 mg tablet Take 650 mg by mouth three times daily. furosemide (LASIX) 20 mg tablet Take 20 mg by mouth as needed. For swelling in legs hasn't taken in awhile allopurinol (ZYLOPRIM) 100 mg tablet Take 100 mg by mouth every morning. pantoprazole DR (PROTONIX) 40 mg tablet Take 40 mg by mouth every morning. 0 HISTORIES PAST MEDICAL HISTORY No date: Chronic kidney disease, stage IV (severe) ([facility]) Comment: Dr. Nickerson No date: Kidney stones No date: PONV (postoperative nausea and vomiting) 2023: Sensory urge incontinence PAST SURGICAL HISTORY No date: COLON SURGERY HX Comment: repair rupture No date: CYSTOSCOPY Comment: several times No date: ESWL No date: F TOTAL ABDOMINAL HYSTERECTOMY No date: FRACTURE SURGERY; Right Comment: heel No date: INCISION AND DRAINAGE OF WOUND (IANDD) HX Comment: upper left thigh No date: LIPOMA (LARGE) Comment: upper abd. 09/2023: [employer] 1X4 POCKET ADAPTER; Left No date: PT ED OBSTETRICS AND GYNECOLOGY Comment: [facility]ILY HISTORY Problem Relation Age of Onset Colon Cancer Brother SOCIAL HISTORY Social History Tobacco Use Smoking status: Former Current packs/day: 0.00 Average packs/day: 0.5 packs/day for 20.0 years (10.0 ttl pk-yrs) Types: Cigarettes Start date: 1986 Quit date: 2006 Years since quittin.7 Smokeless tobacco: Never Vaping Use Vaping status: Never Used Substance Use Topics Alcohol use: Yes Comment: very seldom Drug use: Never There were no vitals taken for this visit. Physical Exam ASSESSMENT/PLAN: 1. Sensory urge incontinence [N39.41] - ICD9: 788.31, ICD10: N39.41 (primary diagnosis) HX: s/p Interstim placement () Doing well initially- freq/urgency but possibility because of UTI Will send urine, started Omnicef 300mg PO BID ( - BLADDER SCAN 2. Acute cystitis with hematuria - ICD9: 595.0, ICD10: N30.01 Will send urine for C/s - started Omnicef 300mg PO bid - URINE CULTURE 3. Calculus of kidney - ICD9: 592.0, ICD10: N20.0 Known hx Will obtain CT to eval further - will call with results - CT ABD/PEL WO HARDY Suarez, JEWELRY DESIGNER.CREDIT UNION EXAMINER This note was partially created using voice recognition software and is inherently subject to errors including those of syntax and sound-alike substitutions which may escape proofreading. In such instances, original meaning may be extrapolated by contextual derivation.[facility]05-07-2024 Note HNO ID: [id number] Author: PORSHA TRAMMELL MD Service: ? Author Type: Physician Type: Progress Notes Filed: 11/01/2023 15:17 Note Text: ESTABLISHED PATIENT OFFICE VISIT F/u UUI. This has resolved with Interstim LAB RESULTS Creatinine Date Value Ref Range Status 10/12/2023 1.88 (H) 0.51 - 0.95 mg/dL Final Comment: Patients receiving either N-Acetylcysteine (NAC) or Metamizole prior to venipuncture, may have falsely depressed results. GLUCOSE UA (POCT) (mg/dL) Date Value 09/02/2023 Negative BILIRUBIN UA (POCT) (no units) Date Value 09/02/2023 Negative KETONE UA (POCT) (mg/dL) Date Value 09/02/2023 Negative SPECIFIC GRAVITY UA (POCT) (no units) Date Value 09/02/2023 1.020 HEMOGLOBIN/BLOOD UA (POCT) (no units) Date Value 09/02/2023 Large (A) PH UA (POCT) (no units) Date Value 09/02/2023 6.0 PROTEIN UA (POCT) (mg/dL) Date Value 09/02/2023 >=300 (A) UROBILINOGEN UA (POCT) (E.U./dL) Date Value 09/02/2023 0.2 NITRITE UA (POCT) (no units) Date Value 09/02/2023 Positive (A) LEUKOCYTES UA (POCT) (no units) Date Value 09/02/2023 Large (A) COLOR UA (POCT) (no units) Date Value 09/02/2023 Yellow CLARITY UA (POCT) (no units) Date Value 09/02/2023 Clear ] ALLERGIES Allergen Reactions Keflex [Cephalexin] Rash Codeine GI Upset Gadolinium-Containi* Hives Latex Rash Morphine GI Upset Wool Rash MEDICATIONS: sodium citrate-citric acid (BICITRA) 500-334 mg/5 mL solution TAKE 10 ML BY MOUTH THREE TIMES DAILY (DILUTED IN 1 TO 3 OUNCES OF WATER) SKYRIZI 150 mg/mL injection Inject subcutaneously. Once every 3 months due october 2023-- will take following procedure. oxybutynin ER (DITROPAN XL) 10 mg 24 hr tablet Take 1 tablet by mouth once daily. (Patient taking differently: Take 10 mg by mouth every morning.) sodium bicarbonate 650 mg tablet Take 650 mg by mouth three times daily. furosemide (LASIX) 20 mg tablet Take 20 mg by mouth as needed. For swelling in legs hasn't taken in awhile allopurinol (ZYLOPRIM) 100 mg tablet Take 100 mg by mouth every morning. pantoprazole DR (PROTONIX) 40 mg tablet Take 40 mg by mouth every morning. REVIEW OF SYSTEMS ACTIVE PROBLEM LIST Gastroesophageal Reflux Disease Vicki (Acute Kidney Injury) (Hcc) Morbidly Obese (Hcc) Calculus of Ureter Obesity, Class III, BMI >= 40 Stage 5 Chronic Kidney Disease (Hcc) Sensory Urge Incontinence Preop Testing HISTORIES PAST MEDICAL HISTORY Diagnosis Date Chronic kidney disease, stage IV (severe) (HCC) Dr. Nickerson Kidney stones PONV (postoperative nausea and vomiting) Sensory urge incontinence 2023 PAST SURGICAL HISTORY Procedure Laterality Date COLON SURGERY HX repair rupture CYSTOSCOPY several times ESWL F TOTAL ABDOMINAL HYSTERECTOMY FRACTURE SURGERY Right heel INCISION AND DRAINAGE OF WOUND (IANDD) HX upper left thigh LIPOMA (LARGE) upper abd. [employer] 1X4 POCKET ADAPTER Left 09/2023 PT ED OBSTETRICS AND GYNECOLOGY [facility]ILY HISTORY Problem Relation Age of Onset Colon Cancer Brother SOCIAL HISTORY Social History Tobacco Use Smoking status: Former Packs/day: 0.50 Years: 20.00 Additional pack years: 0.00 Total pack years: 10.00 Types: Cigarettes Quit date: 2006 Years since quittin.3 Smokeless tobacco: Never Vaping Use Vaping Use: Never used Substance Use Topics Alcohol use: Yes Comment: very seldom Drug use: Never PHYSICAL EXAMINATION Dressing intact; no tenderness ASSESSMENT/PLAN: 1. Sensory urge incontinence [N39.41] - ICD9: 788.31, ICD10: N39.41 Resolved s/p Interstim placement () F/u in 3 months [facility] PROGRESS NOTE NAME ACCOUNT SEX AGE ADMIT DISCHARGE PT MED. RECORD# NUMBER DATE DATE TYPE FORREST, [id number] F 67 09/30/23 1 FELIPA Burton [id number] ROOM: 311MO DATE OF : 1955 DICTATING PHYSICIAN: Vinod Neves DATE OF SERVICE: October 02, 2023 SUBJECTIVE: She states that she had a restless night. She had an episode of vomiting, stabbing pain in her abdomen and was passing blood clots. This morning she feels somewhat better. Cultures are pending. She is tolerating p.o. intake. Update from nursing staff as well. OBJECTIVE: VITAL SIGNS: Blood pressure 139/89, heart rate 72, respirations 16, temperature 98.0, oxygen saturation 94% on room air. This is well-nourished, well-developed obese female sitting up in a chair in no acute distress. She is alert, pleasant and cooperative. HEENT: Normocephalic, atraumatic. LANDRY. Conjunctivae not injected. External pinnae with no lesions. Nares patent. Mouth and throat with no erythema and no exudates. NECK: Supple. No JVD. LUNGS: Normal respiratory effort. Equal lung expansion. Clear to auscultation bilaterally. HEART: Distant heart sounds, regular rate and rhythm. ABDOMEN: Positive bowel sounds, soft, nontender. PSYCHIATRIC/NEUROLOGIC: She is alert and able to answer questions appropriately. DIAGNOSTIC DATA: Laboratory data reviewed and on chart. ASSESSMENT/PLAN: 1. Acute sepsis secondary to pyelonephritis, improved. 2. Acute pyelonephritis. She is still passing blood clots. She is on 2 grams IV Rocephin. WBC did improve. She is afebrile. Cultures are pending. 3. Hematuria, secondary to above. 4. Recurrent kidney stones. She states that she has a procedure with Dr. Trammell on October 12, 2023. This has been a recurrent issue for her. 5. We will continue broad spectrum IV antibiotics, awaiting cultures and overall clinical improvement. Her WBC has improved. She is afebrile today. I would recommend 1 to 2 more days on IV antibiotics. I am awaiting cultures as well. She already has a followup appointment and a procedure with Urology. The above was discussed with the patient. All of her questions were answered. She understands the plan. I evaluated the patient myself the accurate E&M above done by Yung Astorga dictating for Dr. Vinod Neves. 10/02/23 11:31 JOB #: [id number] Transcribed By: p Page 1 of 2 FELIPA LIMA Progress Note FELIPA LIMA : 1955 10/02/23 11:55 Electronically signed by: E-Sign: VINOD NEVES MD 10/30/23 11:14 Page 2 of 2 [facility]IPA LIMA [facility] PROGRESS NOTE NAME ACCOUNT SEX AGE ADMIT DISCHARGE PT MED. RECORD# NUMBER DATE DATE TYPE FORREST [id number] F 67 09/30/23 Julius Burton [id number] ROOM: 311MO DATE OF : 1955 DICTATING PHYSICIAN: Vinod Neves DATE OF SERVICE: October 01, 2023 SUBJECTIVE: She feels much better this morning. She is tolerating p.o. intake. No fever overnight. No abdominal pain. Laboratories are reviewed. White count has improved as well as kidney function. Update from nursing staff as well. OBJECTIVE: VITAL SIGNS: Blood pressure is 101/59, heart rate 72, respirations 18, oxygen saturation 96% on room air, and temperature 98.4. GENERAL: This is a well-nourished, well-developed, obese female in no acute distress. She is alert, pleasant and cooperative. HEENT: Normocephalic and atraumatic. PERRLA. Conjunctivae are not injected. External pinna with no lesions. Nares are patent. Mouth and throat with no erythema and no exudate. NECK: Neck is supple. No JVD. LUNGS: Lungs with normal respiratory effort, equal lung expansion, and clear to auscultation bilaterally. HEART: Heart with distant heart sounds, regular rate and rhythm. ABDOMEN: Abdomen is obese, soft and nontender. NEURO-PSYCH: She is alert and able to answer questions appropriately, and speech is clear. ASSESSMENT: 1. Acute sepsis secondary to pyelonephritis, improved. 2. Acute pyelonephritis 3. Hematuria secondary to above. 4. Rcshu-ra-uthbnrs advanced kidney disease. 5. Recurrent kidney stones. PLAN: She has been treated with aggressive IV fluids and broad-spectrum IV antibiotics. Cultures are pending. She is afebrile today. White count is improved as well as kidney function. CT scan does not show any obstructing stones, and she is clinically feeling better. I did discuss with her and family in the room. She may be discharged home in the next 1-2 days if stable. Dictated by evan Lofton for Dr. Neves. I evaluated the patient myself the accurate E&M above done by Yung Neves MD Dictated By: Vinod Neves MD 10/01/23 12:38 JOB #: [id number] Transcribed By: kathy 10/01/23 13:49 Electronically signed by: E-Sign: VINOD NEVES MD 10/30/23 11:13 Page 1 of 1 FELIPA LIMA [facility] ACCOUNT SEX AGE ADMIT DISCHARGE PT MED. RECORD# NUMBER DATE DATE TYPE FORREST, [id number] F 67 09/30/23 1 FELIPA Burton [id number] ROOM: 311MO DATE OF : [birth year] DICTATING PHYSICIAN: Vinod Neves CHIEF COMPLAINT: Hematuria and chills. HISTORY OF PRESENT ILLNESS: This is a 67-year-old female with multiple medical problems including chronic kidney disease. She states it is stage III and was stage IV in the past. She is followed by nephrology. She also has a history of recurrent kidney stones, which have had to be removed by laser, and she has had a stent in the past, and follows up routinely with Urology. She stated on Tuesday she started seeing some blood in her urine, and then Tuesday started with fever and shaking chills. She did talk to Dr. Trammell office, and she was prescribed an antibiotic, and continued to not feel well with fever and chills, dysuria, and hematuria and came to the emergency room. In the emergency room, she had multiple workups. She had leukocytosis with a left shift, significant white blood cells in the urine, as well as francisco javier blood. BUN was 55, creatinine 2.59, which is increased from her recent laboratories. She was hypotensive, tachycardic, ill appearing. Multiple workups were completed in the emergency room. She was immediately started on IV fluids, broad spectrum IV antibiotics, and admitted for further management. Upon evaluation this morning, she still has hematuria, oxygen is stable. She is still hypotensive and afebrile. PAST MEDICAL HISTORY: (1) Chronic kidney disease stage III-IV, followed by Dr. Hall. Last creatinine in the system was 1.56. (2) Recurrent kidney stones, followed by Dr. Trammell with multiple interventions. (3) Severe psoriatic arthritis. (4) Congestive heart failure. (5) History of kidney abscess. (6) GERD. PAST SURGICAL HISTORY: (1) Ruptured bowel. (2) Complete hysterectomy. 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 (4) Right heel surgery in the past. (5) Abscess drained in the left kidney. (6) She also had kidney stone procedures. MEDICATIONS: Current medications: See medication reconciliation. ALLERGIES: Codeine, morphine, and IV dye. FAMILY HISTORY: Father at age 83. Mother at age 80 with congestive heart failure and complications from dementia. She had a brother with colon cancer. SOCIAL HISTORY: She lives at home alone. She is single. She does not smoke nor drink alcohol. She has no children. REVIEW OF SYSTEMS: She had generalized weakness, fatigue, fever, shaking chills, Page 1 of 3 FELIPA LIMA History & Physical ZANE LIMAATUL Burton :1955 rigors, decreased appetite, nausea, dysuria, hematuria, and the rest of the review of systems were discussed and were negative. PHYSICAL EXAMINATION GENERAL APPEARANCE: The patient was lying in bed in no acute distress. She was alert and pleasant. VITAL SIGNS: Blood pressure was 112/42, heart rate 94, respirations 20, temperature 98.4, oxygen saturation 96% on room air. On admission, blood pressure was in the systolics of 80, and she was tachycardic with heart rate of 123. HEENT: Head normocephalic and atraumatic. PERRLA. Conjunctivae: Not injected. External pinnae: No lesions. Nares: Patent. Mouth and throat: No erythema. No exudates. NECK: Neck is supple. No JVD. LUNGS: Normal respiratory effort, equal lung expansion, clear to auscultation bilaterally. HEART: Tachy rate with regular rhythm, distant heart sounds. ABDOMEN: Positive bowel sounds, soft and nontender. EXTREMITIES: Free of pitting edema. NEUROLOGIC: She is alert and oriented, and able to answer questions appropriately. Speech is clear. DIAGNOSTIC DATA: Laboratory data: White count is 20,000. This morning repeated was 14,900, hemoglobin and hematocrit stable with a left shift. BUN was 55, creatinine 2.59. Creatinine this morning was 2.47. Glucose was 228 and is down to 140. Troponins were negative. Urinalysis showed over 50 white blood cells with large amount of red blood cells with cultures obtained and pending. CT of the abdomen, chest, and pelvis completed in the emergency room, read by the Radiologist, with left perinephric stranding and thickening of the renal pelvis, right renal pelvis and ureteral stranding, bilateral ascending infections with left pyelonephritis, possibly recent passed kidney stone, hepatomegaly, splenomegaly, and left thyroid nodule. IMPRESSION: 1. Acute sepsis secondary to pyelonephritis. 2. Acute pyelonephritis. 3. Hematuria secondary to above. Page 2 of 3 PRITIFELIPA CLINE Josephine History & Physical FELIPA LIMA :1955 4. Acute on chronic advanced kidney disease. PLAN: She was started on aggressive IV fluids, broad spectrum IV antibiotics with ceftriaxone 2 grams while pending urine and blood cultures, which were obtained in the emergency room. (more content not included)...[facility] 10-25-2023 NoteHNO ID: [id number] Author: GIANNA JOHNSON RN Service: Nursing Author Type: Registered Nurse Type: Progress Notes Filed: 10/25/2023 16:17 Note Text: PRE-PROCEDURE INSTRUCTIONS TO PREPARE FOR YOUR PROCEDURE: Your arrival time for your procedure is 1230. Do NOT eat any solid foods after MIDNIGHT the night prior to your procedure - this includes gum or mints. You can drink clear liquids* up until 1030, which is 2 hours before your arrival time. *Clear liquids = water, carbohydrate drink (sports drink that is clear or yellow in color), Ensure Pre-Surgery (given by ALBERT or guicho Oseguera), fruit juice without pulp (apple/cranberry), clear tea, black coffee (no cream). NO CARBONATED BEVERAGES AND NO ALCOHOL. Shower the morning of the [...] drink, you need to drink this at n/a. This should be consumed quickly (in less than 5 minutes, rather than sipped over time) If a bowel preparation has been ordered by your physician, it is very important to follow the bowel prep instructions or your procedure may need to be rescheduled. If you use crutches or a walker, bring them with you. If you have a home CPAP/BIPAP machine, bring it with you. If you were instructed to complete a fleets enema or bowel prep, complete as directed. Bring copy of Living Will/Power of Missing Persons Investigator. Do not smoke or chew. If you [...] the Surgery Center. UPON ARRIVAL: Access to [facility] ([facility]) is located on [address] [employer] parking is available for your convenience from [...] this time. Once you are ready for your procedure, two visitors at a time are permitted in your preprocedure room. PATIENT MEDICATION INSTRUCTIONS Please read below carefully for your personalized instructions. Medications: If you are on blood thinner or anticoagulants including aspirin, please confirm with your surgical team on when to stop these medications. Unless instructed differently by your surgical team, stay on all of your medications until your surgery. Pre-Surgery Med Instructions Medication Instructions sodium citrate-citric acid (BICITRA) 500-334 mg/5 mL solution DO NOT TAKE MORNING OF SURGERY SKYRIZI 150 mg/mL injection oxybutynin ER (DITROPAN XL) 10 mg 24 hr tablet Take morning of surgery with a sip of water, no other fluids sodium bicarbonate 650 mg tablet DO NOT TAKE MORNING OF SURGERY furosemide (LASIX) 20 mg tablet DO NOT TAKE MORNING OF SURGERY allopurinol (ZYLOPRIM) 100 mg tablet Take morning of surgery with a sip of water, no other fluids pantoprazole DR (PROTONIX) 40 mg tablet Take morning of surgery with a sip of water, no other fluids If you have any medication changes between receiving these instructions and your surgery date, please provide this updated information with the nurse who calls you the week day prior to your surgical procedure so we can update your list and provide you with updated instructions for the morning of your procedure.[facility]04-29-2024 NoteHNO ID: [id number] Author: MEGAN SLATER APRN.ANAHY Service: ? Author Type: Nurse Practitioner Type: Progress Notes Filed: 10/24/2023 08:26 Note Text: Summary: DOS MEDS PATIENT MEDICATION INSTRUCTIONS Please read below carefully for your personalized instructions. Medications: If you are on blood thinner or anticoagulants including aspirin, please confirm with your surgical team on when to stop these medications. Unless instructed differently by your surgical team, stay on all of your medications until your surgery. Pre-Surgery Med Instructions Medication Instructions sodium citrate-citric acid (BICITRA) 500-334 mg/5 mL solution DO NOT TAKE MORNING OF SURGERY SKYRIZI 150 mg/mL injection oxybutynin ER (DITROPAN XL) 10 mg 24 hr tablet Take morning of surgery with a sip of water, no other fluids sodium bicarbonate 650 mg tablet DO NOT TAKE MORNING OF SURGERY furosemide (LASIX) 20 mg tablet DO NOT TAKE MORNING OF SURGERY allopurinol (ZYLOPRIM) 100 mg tablet Take morning of surgery with a sip of water, no other fluids pantoprazole DR (PROTONIX) 40 mg tablet Take morning of surgery with a sip of water, no other fluids If you have any medication changes between receiving these instructions and your surgery date, please provide this updated information with the nurse who calls you the week day prior to your surgical procedure so we can update your list and provide you with updated instructions for the morning of your procedure.[facility]04-10-2024 Note. MICRO - Microbiology PROCEDURE: Blood Culture (bacterial) [*1] SOURCE: Blood BODY SITE: COLLECTED DATE/TIME: 09/29/2023 20:21 EDT RECEIVED DATE/TIME: 09/30/2023 14:12 EDT START DATE/TIME: 09/30/2023 14:12 EDT FREE TEXT SOURCE: 2nd set - Left hand FINAL REPORTS Final Report [] Verified Date/Time/Personnel: 10/05/2023 14:59 EDT Blood Culture: No Growth at 5 days. PRELIMINARY REPORTS Preliminary Report [] Verified Date/Time/Personnel: 09/30/2023 14:59 EDT Culture has been received in lab and is no growth to date. Routine cultures are held for 5 days. Performing Locations *1: This test was performed at: [address], [address] [place] [address] ([facility]10-05-2023 Note. MICRO - Microbiology PROCEDURE: Blood Culture (bacterial) [*1] SOURCE: Blood BODY SITE: COLLECTED DATE/TIME: 09/29/2023 19:53 EDT RECEIVED DATE/TIME: 09/30/2023 14:11 EDT START DATE/TIME: 09/30/2023 14:12 EDT FREE TEXT SOURCE: first set Right AC FINAL REPORTS Final Report [] Verified Date/Time/Personnel: 10/05/2023 14:59 EDT Blood Culture: No Growth at 5 days. PRELIMINARY REPORTS Preliminary Report [] Verified Date/Time/Personnel: 09/30/2023 14:59 EDT Culture has been received in lab and is no growth to date. Routine cultures are held for 5 days. Performing Locations *1: This test was performed at: [address], [address] [place] [address] ([place])10-23-2021 [facility] note Author Jefry Alford [facility] Note Date/Time September 05, 2024 7:5 4am [facility] Medical Records Department [address] [place] [address] Anesthesia Postop Eval I 09/05/24 0753 MR#: [id number] Acct: [id number] Name: FELIPA LIMA Rep #:[id number] : 1955 68 From: Jefry Alford PCP: Dr. Kandace Katz MD Status:REG SDC Y Race: C Location: [place] [address] Anesthesia: Postop Eval I Current Vital Signs Temperature: 98.1 F Pulse Rate: 62 Blood Pressure: 77/53 Respiratory Rate: 16 Pulse Ox: 98 Oxygen Delivery Method: Room Air Assessment Airway patent: Yes Spontaneous unlabored respirations: Yes Mental status: Awake nausea: Yes Vomiting: No Anesthesia Complication: Yes Anesthesia Complication Comment:: pt hypotensive and reports nausea in PACU, consult with MD for fluid bolus Fluid Hydration Crystalloid volume administer (ml): 90 Total IV fluid infused: 90 Progress Note Anesthesia document: Postop Eval 1 completed: Yes 09/05/24753 <Electronically signed by Jefry Alford > Date _ Jefry Mendiola Signature: Date CC: ~ Signed [facility] Work Phone: Evaluation noteNo assessment information available [facility] Work Phone: Evaluation note* Diagnosis Onset Date Resolution Status RUQ abdominal mass acute RUQ abdominal mass acute [facility] Work Phone: Reason for referral (narrative)No reason for referral information availableWKettering Health [facility] Work Phone: Summary Purpose Family History No Family History Records Found Relationship Condition Age at Onset Recorded Date/T seema father Diabetes mellitus Unknown Hypertension Unknown Malignant neoplasm Unknown mother Hypertension Unknown brother Malignant neoplasm of colon Unknown Advance Directives No Advanced Directives Records FoundDocuments on File Type Date Recorded Patient Merchant Mariner Expl anation Advance Directives and Livin g Will 06/15/2019 7:08 PM Latest Code Status on File Code Status Date Activated Date Inactivated Comments Full Code 06/16/2019 3:23 AM Full Code - Unverified 06/15/2019 11:38 PM 06/16/2019 3:23 AM Documents on File Type Date Recorded Patient Merchant Mariner Expl anation Advance Directives and Livin g Will 06/15/2019 7:08 PM Latest Code Status on File Code Status Date Activated Date Inactivated Comments Full Code 06/16/2019 3:23 AM Full Code - Unverified 06/15/2019 11:38 PM 06/16/2019 3:23 AM Documents on File Type Date Recorded Patient Merchant Mariner Expl anation Advance Directives and Livin g Will 02/21/2020 7:08 PM Latest Code Status on File Code Status Date Activated Date Inactivated Comments Full Code 06/16/2019 3:23 AM 02/21/2020 12:59 PM Documents on File Type Date Recorded Patient Merchant Mariner Expl anation Advance Directives and Livin g Will 07/29/2020 7:08 PM Latest Code Status on File Code Status Date Activated Date Inactivated Comments Full Code 06/16/2019 3:23 AM 02/21/2020 12:59 PM Documents on File Type Date Recorded Patient Merchant Mariner Expl anation Advance Directives and Livin g Will 07/29/2020 7:08 PM Documents on File Type Date Recorded Patient Merchant Mariner Expl anation Advance Directives and Livin g Will 02/21/2020 7:08 PM Advance Directive Response Recorded Date/ Time Living Will No November 03, 2021 8 :30am Power of Missing Persons Investigator No November 03, 2021 8:30am Advance Directive Response Recorded Date/ Time Living Will No November 03, 2021 7 :30am Power of Missing Persons Investigator No November 03, 2021 7:30am Latest Code Status on File Code Status Date Activated Date Inactivated Comments Full Code 06/16/2019 3:23 AM 02/21/2020 12:59 PM Code Status History Code Status Date Activated Date Inactivated Comments Full Code - Unverified 06/15/2019 11:38 PM 06/16/2019 3:23 AM Advance Directive Response Recorded Date/ Time Living Will No August 31, 2024 1:44pm Power of Missing Persons Investigator No August 31 1:44pm Advance Directive Response Recorded Date/ Time Living Will No August 31, 2024 1:44pm Do you have a Healthcare Power of Missing Persons Investigator? No August 31, 2024 1:44pm Reason for Referral Status Reason Specialty Diagnoses / Procedures Referred By Contact Referred To Contact Pending Review Gastroenterology Diagnoses Follow-up examination, following other surgery Mika Augustin MD [address] [place] [address] Ca Prov Gastroenterolog y [address] [place] [address] History of Present Illness * Fernando To DO - 09/18/2019 2:18 PM EDT Unable to contact Needs GI referral documented in this encounter* Fernando To DO - 09/21/2019 3:11 PM EDT Unable to contact documented in this encounter* Chela Ruano DO - 02/04/2020 4:43 PM EDT Received [facility] page. Patient follows with surgery and has no-showed for multiple appointments and hasbeen difficult to reach. Her PCP is not at [facility]. Requested that page be directed to Surgery. Chela Ruano DO Internal Medicine, PGY3 Pager [phone] documented in this encounter* Mason Hinton MD - 06/23/2019 10:20 AM EST Mason Hinton MD [facility] Hospitalists DAILY PROGRESS NOTE Patient Name: Felipa Lima PCP: Kandace Katz MD Perpetual Assessment: Felipa Lima is a 63 y.o. female who who was transferred to [facility] from [facility] for treatment of a perforated duodenal [...] NOTE Patient Name: Felipa Lima MR #: [id number] Assessment and Plan: 63 y.o. female w/ [...] Neuro: ARIN Beasley 06/23/19 Please contact surgical software intern polymerization kettle operator at [phone] 5PM-6AM and weekends * Mason Hinton MD - 06/22/2019 4:40 PM EST Mason Hinton MD [facility] Hospitalists DAILY PROGRESS NOTE Patient Name: Felipa Lima PCP: Kandace Katz MD Perpetual Assessment: Felipa Lima is a 63 y.o. female who who was transferred to [facility] from [facility] for treatment of a perforated duodenal ulcer and infected right obstructing kidney stone. She had presented from home on 06/15/2019 with a 1-2 week complaint of flank pain that she had managed with NSAIDs. [facility] was consulted for medical management. Assessment and [...] NOTE Patient Name: Felipa Lima MR #: [id number] Assessment and Plan: 63 y.o. female w/ [...] Ext: WWP Neuro: ARIN Joiner 06/22/19 Pager: [phone] Dr. Beasley will be assuming care starting today Pager: [phone] Please contact surgical software intern polymerization kettle operator at [phone] 5PM-6AM and weekends * Mason Hinton MD - 06/21/2019 11:00 AM EST Mason Hinton MD [facility] Hospitalists DAILY PROGRESS NOTE Patient Name: Felipa Lima PCP: Kandace Katz MD Perpetual Assessment: Felipa Lima is a 63 y.o. female who who was transferred to [facility] from [facility] for treatment of a perforated duodenal ulcer and infected right obstructing kidney stone. She had presented from home on 06/15/2019 with a 1-2 week complaint of flank pain that she had managed with NSAIDs. [facility] was consulted for medical management. Assessment and [...] NOTE Patient Name: Felipa Lima MR #: [id number] Assessment and Plan: 63 y.o. 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 Nutrition Intervention/Recommendations: - ADAT. 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 Wt hx: she had lost 97# x22 months with kidney problems, gained 20# back, and estimates she may have lost 10# more recently (though she doesn't tell me numeric wt hx). She denies weakness or difficulty getting around FARM OPERATOR or currently. Denies GI distress. Current [...] Estimated Energy Needs Total Energy Estimated Needs: 0719-3710 kcal Method for Estimating Needs: 25-30 kcal/kg IBW (BMI 24.9 = 64kg) Total Protein Estimated Needs: 83-102 g Method for Estimating Needs: 1.3-1.6 g/kg IBW Assessed By: Margi Johnson RD, LD * Mason Hinton MD - 06/20/2019 1:21 PM EST Mason Hinton MD [facility] Hospitalists DAILY PROGRESS NOTE Patient Name: Felipa Lima PCP: Kandace Katz MD Perpetual Assessment: Felipa Lima is a 63 y.o. female who who was transferred to [facility] from [facility] for treatment of a perforated duodenal ulcer and infected right obstructing kidney stone. She had presented from home on 06/15/2019 with a 1-2 week complaint of flank pain that she had managed with NSAIDs. [facility] was consulted for medical management. Assessment and [...] NOTE Patient Name: Felipa Lima MR #: [id number] Assessment and Plan: 63 y.o. female w/ [...] place, drain serous Ext: WWP Neuro: ARIN Ramon Joiner 06/20/19 Pager: [phone] Please contact surgical software intern polymerization kettle operator at [phone] 5PM-6AM and weekends * Masno Hinton MD - 06/19/2019 5:24 PM EST Mason Hinton MD [facility] Hospitalists DAILY PROGRESS NOTE Patient Name: Felipa Lima PCP: Kandace Katz MD Perpetual Assessment: Felipa Lima is a 63 y.o. female who who was transferred to [facility] from [facility] for treatment of a perforated duodenal ulcer and infected right obstructing kidney stone. She had presented from home on 06/15/2019 with a 1-2 week complaint of flank pain that she had managed with NSAIDs. [facility] was consulted for medical management. Assessment and [...] 06/21/19 Barriers to Discharge: Pending discharge order [facility] Disposition D/C Disposition: Home Agency/Destination: Home Home [...] Patient's PCP is Dr. Ada Katz at [facility]. Pt lives alone in a private residence. Her support is from a friend that more like her daughter and her sister. She drives and is able to drive to [employer]. She is not on any home medications [...] NOTE Patient Name: Felipa Lima MR #: [id number] Assessment and Plan: 63 y.o. female w/ [...] Ext: WWP Neuro: ARIN Joiner 06/19/19 Pager: [phone] Please contact surgical software intern polymerization kettle operator at [phone] 5PM-6AM and weekends * Mason Hinton MD - 06/18/2019 5:22 PM EST Mason Hinton MD [facility] Hospitalists DAILY PROGRESS NOTE Patient Name: Felipa Lima PCP: Kandace Katz MD Perpetual Assessment: Felipa Lima is a 63 y.o. female who who was transferred to [facility] from [facility] for treatment of a perforated duodenal ulcer and infected right obstructing kidney stone. She had presented from home on 06/15/2019 with a 1-2 week complaint of flank pain that she had managed with NSAIDs. [facility] was consulted for medical management. Assessment and [...] [] Family Time Spent/CCM Time: * Hamilton Strickland CNP - 06/18/2019 10:10 AM EST DAILY PROGRESS NOTE Patient Name: Felipa Lima MR #: [id number] No CP, SOB, N/V, pain controlled. Constitutional: Alert, cooperative, no distress, appears stated age Respiratory: Normal respiratory effort, non-labored breathing. Abdominal/GI: Soft, tender Extremities: No clubbing, cyanosis, or edema noted, no calf tenderness bilaterally, SCDs on and activated. Genitourinary: No cva pain Results from last 7 days Lab Units 06/18/19 0606/17/19 0340 06/16/19 0814 SODIUM mmol/L 144 138 134* POTASSIUM mmol/L 4.4 3.9 4.8 CHLORIDE mmol/L 115* 113* 110* BUN mg/dL 33* 44* 57* CREATININE mg/dL 2.38* 2.88* 3.25* GLUCOSE mg/dL 142* 105* 172* CALCIUM mg/dL 8.2* 7.8* 8.4 Results from last 7 days Lab Units 06/18/19 0606/17/19 0340 06/16/19 0814 WBC K/mcL 7.00 8.69 12.93* HGB g/dL 9.2* 9.2* 10.8* HCT % 29.1* 27.8* 32.3* PLT K/mcL 229 216 275 Assessment/Plan: Nephrolithiaisis - Patient with a history of kidney stones, underwent removal/blasting of a stone in November at [facility] - admitted with perforated duodenal ulcer s/p [...] Unable to Assess Rashmi Mckeon MDiv Resident [facility] Office: * Ramon Joiner MD - 06/18/2019 8:38 AM EST GENERAL SURGERY DAILY PROGRESS NOTE Patient Name: Felipa Lima MR #: [id number] Assessment and Plan: 63 y.o. female w/ [...] drain serous Ext: WWP Neuro: ARIN Joiner 06/18/19 Pager: [phone] Please contact surgical software intern polymerization kettle operator at [phone] 5PM-6AM and weekends * Mariela Rodriguez RN - 06/17/2019 11:19 AM EST Anesthesia [...] 84 Resp: [20-32] 29 BP: (81-102)/(43-72) 94/56 * Ramon Joiner MD - 06/17/2019 11:14 AM EST GENERAL SURGERY DAILY PROGRESS NOTE Patient Name: Felipa Lima MR #: [id number] Assessment and Plan: 63 y.o. female w/ [...] in STICU today, will transfer to [facility] tomorrow if remains stable Subjective: Doing well [...] 06/17/2019 11:11 AM EST Shai Bear DO [facility] Hospitalists DAILY PROGRESS NOTE Patient Name: Felipa Lima PCP: Kandace Katz MD Perpetual Assessment: Felipa Lima is a 63 y.o. female who who was transferred to [facility] from [facility] for treatment of a perforated duodenal ulcer and infected right obstructing kidney stone. She had presented from home on 06/15/2019 with a 1-2 week complaint of flank pain that she had managed with NSAIDs. [facility] was consulted for medical management. Assessment and [...] pain. Denies past medical history or any [id number]-[id number] medications use on a regular basis otherwise. [...] NOTE Patient Name: Felipa Lima MR #: [id number] Assessment and Plan: 63 y.o. female w/ [...] 06/16/2019 7:58 AM EST Brennen Austin CNP [facility] Hospitalists Medical Consultation Patient Name:Felipa Lima MR #:[id number] :1955 Admit Date: 12190705 Physicians: Kandace Katz MD (Family); No ref. provider found (Referring) Perpetual Assessment: Felipa Lima is a 63 y.o. female with a history of kidney stones who presented on 06/15/2019 from [facility] with right infected kidney stone and perforated duodenal ulcer. [facility] consulted for medical management ASSESSMENT AND PLAN [...] kidney stones who presented on 06/15/2019 from [facility] with right infected kidney stone and perforated duodenal ulcer.Patient reports RLQ and right flank pain over the last 2 weeks. Pain acutely worsened yesterday 06/15 with nonbloody vomiting. She presented to [facility] CT imaging at the [facility] showed [...] file Gets together: Not on file Attends jehovah's witness service: Not on file Active member of [...] NOTE Patient Name: Felipa Lima MR #: [id number] 07/10/2019 10:07 AM Assessment/Plan: 63 yo F [...] schedule GI EGD in 3 months - Grecia removed, healing well - Light duty at [...] reviewed Lorena Beasley MD General Surgery PGY-5 [phone] After 5PM and on weekends, please call the surgery software intern at [phone]. documented in this encounter Assessments Diagnosis Follow-up [...] in 2 days-- to be done by [id number] Follow-up your primary urologist * Additional Instructions* [...] through Care Everywhere. * Peptic Ulcer Disease (Italian) documented in this encounter Instructions * Patient Instructions* Samra Peña MA - 07/10/2019 10:10 AM EST Please call your nurse, Abeba at [phone] Option # 7 if you need to leave a message for your doctor. You may also leave a message for your doctor through your [employer] account. For urgent needs, call [phone] Option # 2 to speak with the triage nurse during business hours. For urgent calls when the office is closed, call the office at [phone] option # 1 and you will be connected with [employer] personnel who will route your comments to the appropriate provider. Continue a soft diet for 2 More weeks. We will see you back in 2 months. documented in this encounter Chief Complaint and Reason for Visit Chief Complaint Hernia RUQ MASS RT URETER STONE Chief Complaint Hernia RUQ MASS RT URETER STONE Discuss CT and plan for lipoma removal EXCISION LIPOMA RT UPPER QUADRANT EXCISION LIPOMA RT UPPER QUADRANT Reason for Visit RUQ abdominal mass RUQ abdominal mass Chief Complaint Cough Chief Complaint BRUISED BREASTS DURI NG FALL, PAIN L>R Chief Complaint Right upper quadrant pain Chief Complaint Admit Date SCREENING THIGH July 04, 2024 12 :16pm SANDOVAL'S, FATTY LIVER July 17 10:27am INT LABS July 17, 2024 1 2:00pm THYROID NODULE July 30, 2024 1 :32pm Reason for Visit Admit Date Sandoval esophagus July 17, 2024 1 0:27am Family history of colon cancer June 282024 10:27am Metabolic dysfunction-associ ated steatotic liver disease (MASLD) July 17, 2024 10:27am Screen for colon cancer July 17 10:27am High serum parathyroid hormone (PTH) Feb ru2024 1:32pm Thyroid nodule July 30, 2024 1 :32pm Sandoval esophagus September 05, 2024 5:2 2am Screen for colon cancer September 05, 2024 5:22am Chief Complaint Admit Date SCREENING THIGH July 04, 2024 12 :16pm SANDOVAL'S, FATTY LIVER July 17 10:27am INT LABS July 17, 2024 1 2:00pm THYROID NODULE July 30, 2024 1 :32pm POST OP September 05, 2024 8:2 8am INT LAB ORDER September 14, 2024 10: 51am Chief Complaint Admit Date SANDOVAL'S, FATTY LIVER July 17 10:27am INT LABS July 17, 2024 1 2:00pm THYROID NODULE July 30, 2024 1 :32pm POST OP September 05, 2024 8:2 8am INT LAB ORDER September 14, 2024 10: 51am Test Result September 25, 2024 10:1 5am Ongoing issues November 13, 2024 12:23 pm Reason for Visit Admit Date Sandoval esophagus July 17, 2024 1 0:27am Family history of colon cancer June 282024 10:27am Metabolic dysfunction-associ ated steatotic liver disease (MASLD) July 17, 2024 10:27am Screen for colon cancer July 17 10:27am High serum parathyroid hormone (PTH) b ruary 2024 1:32pm Thyroid nodule July 30, 2024 1 :32pm Sandoval esophagus September 05, 2024 5:2 2am Screen for colon cancer September 05, 2024 5:22am GERD (gastroesophageal reflux disease) A pril 2024 10:15am Metabolic dysfunction-associ ated steatotic liver disease (MASLD) September 25, 2024 10:15am Nausea September 25, 2024 10:1 5am RUQ pain September 25, 2024 10:1 5am Chief Complaint Admit Date THYROID NODULE July 30, 2024 1 :32pm POST OP September 05, 2024 8:2 8am INT LAB ORDER September 14, 2024 10: 51am Test Result September 25, 2024 10:1 5am Ongoing issues November 13, 2024 12:23 pm SKIN November 13, 2024 1:14p m Reason for Visit Admit Date High serum parathyroid hormone (PTH) b ruary 2024 1:32pm Thyroid nodule July 30, 2024 1 :32pm Sandoval esophagus September 05, 2024 5:2 2am Screen for colon cancer September 05, 2024 5:22am GERD (gastroesophageal reflux disease) A pril 2024 10:15am Metabolic dysfunction-associ ated steatotic liver disease (MASLD) September 25, 2024 10:15am Nausea September 25, 2024 10:1 5am RUQ pain September 25, 2024 10:1 5am Metabolic dysfunction-associ ated steatotic liver disease (MASLD) November 13, 2024 12:23pm Additional Source Comments INFORMATION SOURCE (unrecogn ized section and content) DATE CREATED AUTHOR 09/21/2019 [facility] DATE CREATED AUTHOR AUTHOR'S ORGANIZ ATION 07/27/2020 [facility] DATE CREATED AUTHOR AUTHOR'S ORGANIZ ATION 07/31/2020 [facility] DATE CREATED AUTHOR AUTHOR'S ORGANIZ ATION 07/05/2021 [facility] DATE CREATED AUTHOR AUTHOR'S ORGANIZ ATION 11/19/2021 [facility] [place] DATE CREATED AUTHOR AUTHOR'S ORGANIZ ATION 08/05/2023 [facility] DATE CREATED AUTHOR AUTHOR'S ORGANIZ ATION 10/06/2023 [facility] ([place]) DATE CREATED AUTHOR AUTHOR'S ORGANIZ ATION 08/14/2024 [facility] DATE CREATED AUTHOR AUTHOR'S ORGANIZ ATION 10/17/2024 [facility] DATE CREATED AUTHOR AUTHOR'S ORGANIZ ATION [facility] Reason for Visit (unrecogniz ed section and content) Status Reason Specialty Diagnoses / Procedures Referre d By Contact Referred To Contact Diagnoses Gastroesophageal reflux disease with esophagitis and hemorrhage Gastroesophageal reflux disease with esophagitis and hemorrhage [K21.01] Procedures OK EGD TRANSORAL BIOPSY SINGLE/MULTIPLE ESOPHAGOGASTRODUODENOSC OPY Reason Comments Abdominal Pain Status Reason Specialty Diagnoses / Procedures Referre d By Contact Referred To Contact Diagnoses k27.1 Procedures OK EGD TRANSORAL BIOPSY SINGLE/MULTIPLE ESOPHAGOGASTRODUODENOS COPY Reason Comments Medication Refill Messi Mae MD - 07/29/2020 12:35 PM Messi López MD - 02/21/2020 1:58 PM EDT H&P Notes (unrecognized sect ion and content) GI H&P Patient Demographics: Felipa Lima [address] [facility] [address] (home) Date of : 1955 CHIEF COMPLAINT: [...] Procedure: ESOPHAGOGASTRODUODENOSCOPY; Surgeon: Messi Mae MD; Location: [facility]; Service: Gastroenterology EXPLORATORY LAPAROTOMY N/A 06/16/2019 Procedure: EXPLORATORY LAPAROTOMY, GRAM PATCH REPAIR OF OF ULCER; Surgeon: Brad Johnson MD; Location: [facility] Main OR; Service: General Surgery FOOT SURGERY [...] encounter GI H&P Patient Demographics: Felipa Lima [address] [facility] [address] (home) Date of : 1955 CHIEF COMPLAINT: [...] OF ULCER; Surgeon: Brad Johnson MD; Location: [facility] Main OR; Service: General Surgery FOOT SURGERY [...] Felipa Lima Admit Date: 12190705 MR #: [id number] : 1955 Physicians: Kandace Katz MD (Family); No ref. provider found (Referring) Chief Complaint/Reason for Visit: CT concerning for Stones Assessment and Plan/Recommendations: Felipa Lima is a 63 y.o. y/o female presenting with Abdominal Pain Genitourinary Kidney stones Assessment & Plan - Patient with a history of kidney stones, underwent removal/blasting of a stone in November at [facility] - CT revealed mild right hydro and [...] was seen in the later spring at [facility] in [place] and had a nephrostomy tube for 2 [...] file Gets together: Not on file Attends jehovah's witness service: Not on file Active member of [...] available. Call if acute changes or questions [phone].documented in this encounter Patrizia Mcallister RN - [...] was transferred from an outlying facility from [facility]. She went there because she [...] file Gets together: Not on file Attends jehovah's witness service: Not on file Active member of [...] [birth year] 117/76 89 18 98 % 06/15/19 183 101/87 99 F (37.2 C) Oral 99 [...] female who comes as a transfer from [facility] in [facility] for ruptured duodenum and an obstructed [...] Procedure Abnormality Status --------- ------ CBC Auto Differential[[id number]] Abnormal Final result Please view results for [...] expedite correspondence this note was generated by Dragon voice recognition software. All imaging has been read by a Radiologist. Belen Cedeno PA-C 06/15/19 2239 Radiology calling transport for pt now, medications will be given right before test, radiology states to hold off NG placement until after test is performed STEVE [phone] FOR INFO Surgery at [facility] gave 25mcg and 4mg zofran on route Referral note: Call from Dr Mari Reyna at [facility] ED with Request to transfer to [facility] for perforated bowel with free air, also has an obstructed kidney stone , pt stable [facility] on stand by at [facility]. Pt has had abd pain x 1 week Bed: 22 Expected date: 06/15/19 Expected time: 6:17 PM Means of arrival: Medical Flight Comments: MF4/ referral MAUDET/ Tu documented in this encounter CDI Query - Mason Hinton MD - 06/19/2019 2:02 PM ESTCDI Query - Mason Hinton MD - 06/19/2019 1:57 PM ESTPlan of Benjie - Clark Galvan RN - 06/17/2019 4:32 [...] determine Thank you, MAYANK Figueredo, RN Clinical Commanding Officer [employer] [phone] After business hours you may contact Joana Castillo at [phone](Weekdays until 10 PM and weekends 8 AM [...] determine Thank you, MAYANK Figueredo, RN Clinical Commanding Officer [employer] [phone] After business hours you may contact Joana Castillo at [phone] (Weekdays until 10 PM and weekends 8 AM -10 PM) Pain has been controlled throughout the night. PRITIMARGARITAPhyllisFELIPA CSN [id number] 1955 DATE 06/16/2019 OPERATIVE REPORT SURGEON BRAD JOHNSON MD FILM TESTS CHECKER BERNARDINO GRAHAM MD, RESIDENT PREOPERATIVE DIAGNOSIS Perforated viscus. POSTOPERATIVE DIAGNOSIS Perforated duodenal ulcer PROCEDURE 1. Exploratory laparotomy 2. Abdominal lavage 3. Gadiel patch repair of perforated duodenal ulcer DRAINS 7 Fr CORY drain INDICATIONS FOR PROCEDURE The patient is a 63-year-old female, who presented to [place] as a transfer from outside hospital, complaining [...] was aspirated with a [place]-tip sucker. A [place] retractor was placed into the abdomen for [...] condition. Dictated by BERNARDINO GRAHAM MD, RESIDENT MD Kate COUGHLIN 06/16/2019 09:54 [id number] T 06/16/2019 13:06 MGK/MODL Associated attestation - Brad Johnson MD - 06/19/2019 8:09 AM EST Present/scrubbed for all critical portions of procedure Brad Johnson MD General Surgery, Trauma, and Surgical Critical Care [facility] c [phone] p [phone] Associated Problem(s): Kidney stones - Patient with a history of kidney stones, underwent removal/blasting of a stone in November at [facility] - CT revealed mild right hydro and [...] (63 y.o.) Date of Service: 06/16/2019 CSN: [id number] Procedure(s): EXPLORATORY LAPAROTOMY, GRAM PATCH REPAIR OF OF ULCER Pre-Operative Diagnoses: * PERFORATED DUODENAL ULCER Post-Operative Diagnoses: * Perforated duodenal ulcer (HCC) [K26.5] Surgeon(s) and Role: * Brad Johnson MD - Primary * Mihir Ngo MD - Resident - Assisting * Bernardino Graham MD - Resident - Clinic Anesthesiologist: Nito Nguyen MD Scrub Person: Clark Brand Cardiopulmonary Technologist Chief Orientee: Jose Coronado RN Cardiopulmonary Technologist Chief Preceptor: Jefry De León RN Operative findings: [...] the patient. I discussed the patient with UROLOGIC SURGEON/PA. I agree with the UROLOGIC SURGEON/PA treatment plan. I agree with the UROLOGIC SURGEON/PA plan of care. I agree with the UROLOGIC SURGEON/PA dispo as documented. This patient was transferred [...] or prosecute any alcohol or drug abuse patient.[facility] the event this information is protected by the Federal Confidentiality of Alcohol and Drug Abuse Patient Records regulations: The Federal rules restrict any use of the information to criminally investigate or prosecute any alcohol or drug abuse patient.[facility] Goals (unrecognized section and content) Goals may be documented in a n alternate sectionGoals may be documented in an alternate sectionGoals may be documented in an alternate sectionGoals may be documented in an alternate sectionGoals may be documented in an alternate sectionGoals may be documented in an alternate sectionGoals may be documented in an alternate section Care Teams (unrecognized sec tion and content) Model Maker Relationship Specialty Start Date End Date Kandace Katz MD PCP - General Internal Medicine 06/15/19 Team Status: Active Member Role Status Dates Ro Sheth UROLOGIC SURGEON, UROLOGIC SURGEON-C Family Provider Active Dr. Kandace Katz MD Primary Care Provider Active Team Status: Inactive Member Role Status Dates Dr. Kandace Katz MD Primary Care Prov ider, Attending Provider, Referring Provider Active Team Status: Inactive Member Role Status Dates Dr. Kandace Katz MD Primary Care Provider Active Maxx MARTINEZ, PA Attending Provider, Referring Provi surya Active Team Status: Active Member Role Status Dates Dr. Kandace Katz MD Primary Care Provider Active Team Status: Inactive Member Role Status Dates Dr. Kandace Katz MD Primary Care Provider Active Start: July 04, 2024 End: July 04, 2024 Dr. Kandace Katz MD Attending Provider Active Start: July 04, 2024 End: July 04, 2024 Dr. Kandace Katz MD Referring Provider Active Start: July 04, 2024 End: July 04, 2024 Team Status: Inactive Member Role Status Dates Dr. Kandace Katz MD Primary Care Provider Active Start: July 17, 2024 End: July 17, 2024 Dr. Kandace Katz MD Referring Provider Active Start: July 17, 2024 End: July 17, 2024 PETER RodgersC Attending Provider Active Start: July 17, 2024 End: July 17, 2024 Team Status: Inactive Member Role Status Dates Dr. Kandace Katz MD Primary Care Provider Active Start: July 17, 2024 End: July 17, 2024 MIKEL Rodgers Attending Provider Active Start: July 17, 2024 End: July 17, 2024 MIKEL Rodgers Referring Provider Active Start: July 17, 2024 End: July 17, 2024 Team Status: Inactive Member Role Status Dates Dr. Kandace Katz MD Primary Care Provider Active Start: July 30, 2024 End: July 30, 2024 Dr. Kandace Katz MD Referring Provider Active Start: July 30, 2024 End: July 30, 2024 Dr. Jose Rodríguez MD Attending Provider Active Start: July 30, 2024 End: July 30, 2024 Team Status: Inactive Member Role Status Dates Dr. Kandace Katz MD Primary Care Provider Active Start: July 30, 2024 End: July 30, 2024 Dr. Jose Rodríguez MD Attending Provider Active Start: July 30, 2024 End: July 30, 2024 Dr. Jose Rodríguez MD Referring Provider Active Start: July 30, 2024 End: July 30, 2024 Team Status: Inactive Member Role Status Dates Dr. Kandace Katz MD Primary Care Provider Active Start: September 05, 2024 End: September 05, 2024 Dr. Kandace Katz MD Referring Provider Active Start: September 05, 2024 End: September 05, 2024 Dr. Roderick Tang DO Attending Provider Active Start: September 05, 2024 End: September 05, 2024 Team Status: Active Member Role Status Dates Dr. Kandace Katz MD Primary Care Provider Active Start: September 05, 2024 Dr. Kandace Katz MD Referring Provider Active Start: September 05, 2024 Dr. Roderick Tang DO Attending Provider Active Start: September 05, 2024 Dr. Roderick Tang DO Other Provider Active St art: September 05, 2024 Team Status: Active Member Role Status Dates Dr. Kandace Katz MD Primary Care Provider Active Start: September 05, 2024 End: September 05, 2024 Dr. Sandro Bermudez MD Attending Provider Active S tart: September 05, 2024 End: September 05, 2024 Dr. Aman Ponce MD Referring Provider Active St art: September 05, 2024 End: September 05, 2024 Team Status: Inactive Member Role Status Dates Dr. Kandace Katz MD Primary Care Provider Active Start: September 14, 2024 End: September 14, 2024 MIKEL Rodgers Attending Provider Active Start: September 14, 2024 End: September 14, 2024 MIKEL Rodgers Referring Provider Active Start: September 14, 2024 End: September 14, 2024 Team Status: Inactive Member Role Status Dates Dr. Kandace Katz MD Primary Care Provider Active Start: September 25, 2024 End: September 25, 2024 Dr. Kandace Katz MD Referring Provider Active Start: September 25, 2024 End: September 25, 2024 MIKEL Rodgers Attending Provider Active Start: September 25, 2024 End: September 25, 2024 Team Status: Inactive Member Role Status Dates Dr. Kandace Katz MD Primary Care Provider Active Start: November 13, 2024 End: November 13, 2024 Dr. Kandace Katz MD Referring Provider Active Start: November 13, 2024 End: November 13, 2024 Dr. Eric Sampson MD Attending Provider Active Start: November 13, 2024 End: November 13, 2024 Team Status: Inactive Member Role Status Dates Dr. Kandace Katz MD Primary Care Provider Active Start: November 13, 2024 End: November 13, 2024 JUAN Snow Attending Provider Active Sta rt: November 13, 2024 End: November 13, 2024 JUAN Snow Referring Provider Active Sta rt: November 13, 2024 End: November 13, 2024 FOR RECORDS PERTAINING TO PATIENTS WHO ARE [...] BE BASED ON THE PRIMARY CLINICAL RECORDS. [employer] provides no warranty or guarantee of the accuracy or completeness of information in this document.
--- NOTE | 2024-12-26 06:15 | PRE.ANES_ITS ---
ASA Classification* ASA Classification ASA Classification: 3 Assessment & Plan Anesthesia* Anesthesia Assessment Anesthesia Assessment: Discussed sedation and/or anesthesia options, risks, benefits, and alternatives with patient/parents/legal guardian/POA. Questions invited. The patient/parents/legal guardian/POA seems to understand and agrees to proceed with anesthesia plan. Reviewed the physical assessment, medical history, allergy history and patient home medications list prior to surgery/procedure/anesthetic and documented any changes. Performed airway and anesthesia risk assessments. Anesthesia Type Anesthesia Type: MAC History Source History Obtained from:: Patient and Chart Anesthesia Focused Assessment* Temperature: 97.6 F Pulse Rate: 73 Blood Pressure: 138/75 Respiratory Rate: 18 Pulse Ox: 98 Oxygen Delivery Method: Room Air Airway Assessment Mouth opens: >3 cm Mallampati Score: IV Teeth Condition: Intact Neck Range of motion (ROM): Full ROM Labs Anesthesia Preop lab: CBC WBC 5.3 K/mm3 (4.4-11.0) 07/17/24 12:07 07/17/24 RBC 4.30 M/mm3 (4.2-5.4) 07/17/24 12:07 07/17/24 Hgb 12.9 g/dL (12.0-15.0) 07/17/24 12:07 07/17/24 Hct 41.2 % (37-47) 07/17/24 12:07 07/17/24 Plt Count 195 K/mm3 (150-450) 07/17/24 12:07 07/17/24 CHEMISTRY Potassium 4.1 mmol/L (3.5-5.1) 07/17/24 12:07/17/24 Sodium 140 mmol/L (136-145) 07/17/24 12:07 07/17/24 BUN 34 mg/dL (7-18) H 07/17/24 12:07 07/17/24 Creatinine 1.60 mg/dL (0.55-1.02) H 07/17/24 12:07 Glucose 112 mg/dL (74-106) H 07/17/24 12:07 07/17/24 COAG Pre-Assessment Diagnosis/Proposed Procedure Planned Operative Procedure(s): EGD Anesthesia History Anesthesia History - director electrical engineering: Anesthesia History - director electrical engineering Hx Hospitalization No 12/24/24 14:47 Any Problems With Anesthesia had tremors with last endo procedure 12/24/24 14:47 Cholinesterase deficiency No 12/24/24 14:47 You/Your Family Experience No 12/24/24 14:47 fever (hyperthermia) with Relationship Recent Exposure to Contagious No 09/05/24 05:50 Disease Does patient have nerve No 12/24/24 14:47 stimulator Patient instructed to have device shut off --Does patient have Pacemaker or ICD? When Was Last Pacemaker Check QUESTION #4 FULL TEXT: You/Your Family Experience fever (hyperthermia) with Anesthesia Last Oral Intake Last Oral intake: Last Oral Intake NPO since Meds taken in AM with sips of water? Meds patient instructed to take am of surgery Any additional information?: Yes NPO since: 00:00 Meds taken in AM with sips of water?: Yes PONV PONV - director electrical engineering: PONV - director electrical engineering Female Yes 12/24/24 14:47 HX of Motion Sickness No 12/24/24 14:47 HX of N/V After Surgery No 12/24/24 14:47 Non-Smoker Yes 12/24/24 14:47 Duration of Surgery greater No 12/24/24 14:47 than 60 minutes Number of Risk Factors 2 12/24/24 14:47 PONV Score Moderate Risk 12/24/24 14:47 Height & Weight Height & Weight: Anesthesia: Height & Weight Height 5 ft 3 in 11/13/24 12:29 Respiratory Assessment Respiratory Assessment - director electrical engineering: Respiratory Tract Infection Hx - director electrical engineering Hx Respiratory Tract Infection No 12/24/24 14:47 STOP Sleep Apnea STOP Sleep Apnea - director electrical engineering: STOP Sleep Apnea - director electrical engineering Hx Hypertension No 12/24/24 14:47 Hx Sleep Apnea No 12/24/24 14:47 CPAP BIPAP Do you snore loudly (louder No 12/24/24 14:47 than talking or can be heard Do you often feel tired/ No 12/24/24 14:47 fatigued/ sleepy during daytime? Has anyone observed you stop No 12/24/24 14:47 breathing during sleep? STOP Results Negative 12/24/24 14:47 QUESTION #5 FULL TEXT : Do you snore loudly (louder than talking or can be heard through closed doors)? Tobacco Use History Tobacco Use History - director electrical engineering: Tobacco Use History - director electrical engineering Tobacco Use Smoking Status Former smoker 12/24/24 14:47 Hx Tobacco Use No 12/24/24 14:47 Years Smoking Packs Smoked per Day Smoking Cessation Date was No - quit smoking greater 12/24/24 14:47 within the last 15 years than 15 years ago Hx Smoking Cessation Date 11/25/05 12/24/24 14:47 Hx Smoking Cessation No 12/24/24 14:47 Counseling Hematologic Medial History Hematologic Hx - director electrical engineering: Hematologic Medical Hx - manager mass Hx of Blood Transfusion Yes 12/24/24 14:47 Hx of Transfusion in last 3 No 12/24/24 14:47 Months Date of Last Transfusion (if within last 3 months) Ever experience any problems No 12/24/24 14:47 with transfusion(s)? Specify any problems Hx of Preganancy in last 3 N/A 12/24/24 14:47 Months Nurse Filling Out Transfusion [id number] 12/24/24 14:47 & Questions: Date: 12/24/24 12/24/24 14:47 Time: 14:49 12/24/24 14:47 Patient unable to answer at this time (ie. confused, unrespo /Reproduction History /Reproductive History - director electrical engineering: /Reproductive Hx- director electrical engineering Hx Now Gestational Age (in weeks): EDC: Hx Hx Para Hx Section SAB No 08/31/24 12:44 Active Medications Active Medications: Current Medications Generic Name Dose Route Start Last Admin Trade Name Freq PRN Reason Stop Dose Admin Lactated Ringer's 1,000 mls @ 15 mls/hr 12/26/24 05:45 IV .Q48H TRIPP PFSH Medical History Wears contact lenses Thyroid disease Arthritis Bladder disease Easy bruising Back pain Syncope History of hiatal hernia History of renal disease Leg cramps History of pain when walking Hx of lipoma Wears glasses Post-menopausal Former smoker Hydronephrosis, right Right ureteral calculus History of uterine leiomyoma Fatigue GERD (gastroesophageal reflux disease) Home Medications ?Medication ?Instructions ?Recorded ?Last Taken ?Type allopurinol 100 mg tablet 100 mg PO DAILY 10/13/2108/21 History sodium bicarbonate 650 mg tablet 650 mg PO TID 2 09/04/24 History risankizumab-rzaa 150 mg/mL 150 mg subcut Q12W 5 Unknown History subcutaneous pen injector (James) acetaminophen 500 mg capsule 500 mg PO Q6H PRN pain 09/04/24 History nitrofurantoin macrocrystal 100 mg 100 mg PO Q12H PRN BLADDER 07/17/24 Unknown History capsule oxybutynin chloride 10 mg 10 mg PO QDAY 07/17/2412/26 History tablet,extended release 24 hr pantoprazole 40 mg tablet,delayed 40 mg PO QDAY #180 t abs 09/25/24 12/26/24 Rx release spironolactone 25 mg tablet 25 mg PO DAILY PRN PER DR 12/24/24 Unknown History Allergy/AdvReac Type Severity Reaction Status Date / Time cephalexin Allergy Severe Other Verified 12/26/24 06:24 Iodinated Contrast Media Allergy Mild rash Verified 12/26/24 06:24 latex Allergy Rash Verified 12/26/24 06:24 wool Allergy Rash Verified 12/26/24 06:24 codeine AdvReac Mild gi upset Verified 12/26/24 06:24 morphine AdvReac Mild gi upset Verified 12/26/24 06:24 Family History Father Diabetes Hypertension Cancer skin Mother Hypertension Brother Colon cancer Surgical History History of bladder surgery History of incision and drainage History of esophagogastroduodenoscopy (EGD) Hx of biopsy History of surgery History of ureter stent Hx of foot surgery History of hysterectomy History of colonoscopy Social History Smoking Status: Former smoker how long ago did patient quit smokin years Review of Systems (Anesthesia) ROS Narrative System reviewed and no additional complaints, except as documented.
[2024-12-26] MEDS: Lactated Ringers 1,000 ML 15 ML IV (06:30)
--- NOTE | 2024-12-26 06:30 | EGD_PTH ---
PATIENT: FREDY CLAYTON LOC: EN U#:[id number] AGE/SX: 69/F ROOM: RE12/26/[address]: Dr. Roderick Tang DO : 1955 BED: DIS: 12/26/2024 SPEC #: [id number] RECD: 12/26/24 08:16 STATUS: INDER REYasir #: [id number] VIRI: 12/26/24 06:[address]: Roderick Tang DEPT: SURGICAL PATHOLOGY RECD BY: Philip Lester ENTERED: 12/26/24 10:40 SP TYPE: EGD BIOPSY STACY DR: Dr. Kandace Katz MD Tissues: A - Esophagus, NOS B - Duodenum, NOS Procedures: Surgery Specimen Level IV HEADER OPERATION: EGD, biopsy PRE-OP DIAGNOSIS: GERD, MASLD, right upper quadrant pain, nausea TISSUE SUBMITTED: A- Distal esophagus biopsy, B- Duodenum biopsy MICROSCOPIC DIAGNOSIS A. Distal esophagus, biopsy: - Benign squamous and columnar mucosa. - Negative for goblet cell metaplasia. - Negative for dysplasia. B. Duodenum, biopsy: - Jodi gland hyperplasia with acute inflammation and gastric mucin cell metaplasia, suggestive of peptic injury. - Negative for increased intraepithelial lymphocytes. MICROSCOPIC DESCRIPTION Slides are reviewed. GROSS DESCRIPTION A. Received in fixative is one container labeled with the patient's name and designated Distal esophagus biopsy. The specimen consists of multiple irregular fragments of light chinchilla soft tissue that in aggregate measure 0.3 to 0.5 cm. The specimen is totally submitted in one cassette. B. Received in fixative is one container labeled with the patient's name and designated Duodenum biopsy. The specimen consists of one irregular fragment of light chinchilla soft tissue that measures 0.3 cm. The specimen is totally submitted in one cassette. Chip 12/26/2024 CPT:14940f4
--- NOTE | 2024-12-26 06:31 | EKG12_ITS ---
Test Reason : PREOP Blood Pressure : */* mmHG Vent. Rate : 67 BPM Atrial Rate : 67 BPM P-R Int : 166 ms QRS Dur : 80 ms QT Int : 426 ms P-R-T Axes : 36 -33 31 degrees QTcB Int : 450 ms Normal sinus rhythm Left axis deviation Low voltage QRS Abnormal ECG When compared with ECG of 05-Sep-2024 08:28, Sinus rhythm has replaced Electronic ventricular pacemaker Confirmed by TOYIN SAHU, ANCA ([id number]), manager editorial CROW REYES ([id number]) on 12/27/2024 1:23:35 PM Referred By: Kandace Katz Confirmed By: ANCA DEAL MD
--- NOTE | 2024-12-26 07:01 | PCM.HP.STD ---
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 Biopsied. - Medium-sized hiatal hernia. - Enlarged gastric folds. - A single duodenal polyp. Clip was placed. 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 Biopsied. COLON 09/05/2024 TAs - RECALL colon in 3 years (08/2027) - Diverticulosis in the recto-sigmoid colon, in the sigmoid colon and in the descending colon. - Two 7 mm polyps in the sigmoid colon and at the hepatic flexure, removed with a jumbo cold forceps. Resected and retrieved. - One 9 mm polyp in the cecum, removed with a cold snare. Resected and retrieved. - Stool in the cecum. - Medium-sized lipoma at the hepatic flexure. HAV Total Ab: 07/17/2024 negative HBVsA07/17/2024 negative HBVsAb: 07/17/2024 negative HBV Core Ab Total: 07/17/2024 negative HCV Ab: 07/17/2024 negative CBC: 07/17/2024 PLT 195 CMP: 07/17/2024 Creat 1.6, transaminases unremarkable, albumin WNL ELF: 09/14/2024 elevated 11.29 ABD US: 06/25/[address] Chest/ABD/Pelvis w/o contrast 09/29/2023 hepatomegaly, splenomegaly, left thyroid nodule and pyelonephritis. FibroScan: 07/26/2024 F0/S3 no fibrosis with severe liver fat IQR of 33% WEIGHT: 233lbs / BMI 41.3 07/17/2024 234lbs EtOH: once a year Family h/o liver disease: denies Tattoos: yes - mild nausea on occasion - mild RUQ pain - denies any HB - denies any weight loss - Pantoprazole 20mg QD - weight is stable - scopes were done for screening purposes - she reports post scope she no longer has aching pain in her BLE and knees - she reports she is not diabetic - elevated glucose dating back to at least 2019 PFSH Medical History Wears contact lenses Thyroid disease Arthritis Bladder disease Easy bruising Back pain Syncope History of hiatal hernia History of renal disease Leg cramps History of pain when walking Hx of lipoma Wears glasses Post-menopausal Former smoker Hydronephrosis, right Right ureteral calculus History of uterine leiomyoma Fatigue GERD (gastroesophageal reflux disease) Home Medications ?Medication ?Instructions ?Recorded ?Last Taken ?Type allopurinol 100 mg tablet 100 mg PO DAILY 10/13/21 12/26/24 History sodium bicarbonate 650 mg tablet 650 mg PO TID 10/13/21 09/04/24 History risankizumab-rzaa 150 mg/mL 150 mg subcut Q12W 07/16/24 Unknown History subcutaneous pen injector (James) acetaminophen 500 mg capsule 500 mg PO Q6H PRN pain 07/17/24 09/04/24 History nitrofurantoin macrocrystal 100 mg 100 mg PO Q12H PRN BLADDER 07/17/24 Unknown History capsule oxybutynin chloride 10 mg 10 mg PO QDAY 07/17/24 12/26/24 History tablet,extended release 24 hr pantoprazole 40 mg tablet,delayed 40 mg PO QDAY #180 tabs 09/25/24 12/26/24 Rx release spironolactone 25 mg tablet 25 mg PO DAILY PRN PER 12/24/24 Unknown History Allergy/AdvReac Type Severity Reaction Status Date / Time cephalexin Allergy Severe Other Verified 12/26/24 06:24 Iodinated Contrast Media Allergy Mild rash Verified 12/26/24 06:24 latex Allergy Rash Verified 12/26/24 06:24 wool Allergy Rash Verified 12/26/24 06:24 codeine AdvReac Mild gi upset Verified 12/26/24 06:24 morphine AdvReac Mild gi upset Verified 12/26/24 06:24 Family History Father Diabetes Hypertension Cancer skin Mother Hypertension Brother Colon cancer Surgical History History of bladder surgery History of incision and drainage History of esophagogastroduodenoscopy (EGD) Hx of biopsy History of surgery History of ureter stent Hx of foot surgery History of hysterectomy History of colonoscopy Social History Smoking Status: Former smoker how long ago did patient quit smokin years ROS Constitutional Constitutional: Denies fatigue, fever(s), poor appetite, weight gain or weight loss Gastrointestinal Gastrointestinal: Denies belching, bloating, change in bowel habits, change in stool character, chewing difficulty, coffee ground emesis, constipation, cramping, diarrhea, dyspepsia, dysphagia, early satiety, excessive flatus, fecal incontinence, heartburn, hematemesis, hematochezia, hemorrhoids, loose stools, melena, nausea, odynophagia, rectal bleeding, tenesmus, vomiting or weight changes Vital Signs Vital Signs Vital Signs: 12/26/24 06:24 12/26/24 06:24 12/26/24 06:29 Temperature 97.6 F L 97.6 F L Temperature Source Temporal Pulse Rate 73 73 Respiratory Rate 18 18 Respiratory Pattern Normal Blood Pressure 138/75 H 138/75 H Blood Pressure Mean 96 Blood Pressure Source Monitor Blood Pressure Position Sitting Blood Pressure Location Right Arm Pulse Ox 98 98 Oxygen Delivery Method Room Air Room Air Weight Weight: 240 lb 11.916 oz Body Mass Index (BMI) 42.6 Physical Exam Const alert, oriented x3, no apparent distress and healthy appearing General Appearance: cooperative GI normal to inspection, nondistended, normoactive bowel sounds, soft to palpation, non-tender and non-distended Percussion: normal to percussion Rectal Exam: deferred Assessment & Plan Assessment/Plan (1) Nausea: (2) RUQ pain: (3) Sandoval esophagus: QUALIFIERS: Sandoval's esophagus type: without dysplasia Qualified Code(s): K22.70 - 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 Her past medical history is significant for Sandoval's esophagus and she underwent an EGD on 09/05/2024 which did reveal short segment Sandoval's without dysplasia as well as a 15 mm duodenal polyp. 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 It is recommended she take PPI twice daily and repeat EGD in 3 to 4 months. Screening colonoscopy was also performed 09/05/2024 and revealed tubular adenomas. It is recommended she repeat colonoscopy in 3 years. She experiences mild RUQ pain and occasional nausea. Denies any HB and weight is stable. She has been on PPI 20mg daily and will increase to 40mg BID. Previous ABD US and CT were revealing for hepatomegaly, liver steatosis and splenomegaly. Transaminases, albumin, and PLT are WNL. FibroScan was performed 07/26/2024 and revealed F0/S3 no fibrosis with severe liver fat; however, IQR was elevated to 33% which raises concern for validity of results. ELF 09/14/2024 elevated to 11.29 indicating high probability of advanced fibrosis/cirrhosis. I have recommended she follow-up with PCP for A1C as well as vaccination for HAV and HBV. She will schedule consult with our software packaging engineer, Dr. Sampson. Patient Instructions: - Follow-up with Dr. Ada Katz for A1C if not recently performed - Will await A1C before making recommendation on Vitamin E use - Increase pantoprazole to 40mg twice a day and repeat EGD in 3-4 months - Schedule consult with Dr. Sampson for MASLD - Recommend vaccination for HAV and HBV - Repeat FibroScan in 1 year Metabolic dysfunction-associated steatotic liver disease (MASLD) is a spectrum of disease that ranges from a more benign condition of nonalcoholic fatty liver (NAFL) to nonalcoholic steatohepatitis (MASH), which is at the more severe end of the spectrum. In NAFL, hepatic steatosis is present without evidence of inflammation, whereas in MASH, hepatic steatosis is associated with lobular inflammation and apoptosis that can lead to fibrosis and cirrhosis. Lifestyle modifications are the cornerstone of treatment for fatty liver disease. These include optimizing care for diabetes, high cholesterol and obesity. - Weight loss is the primary therapy for most patients with MASLD. We recommend weight loss for all patients with MASLD who are overweight (body mass index [BMI] =25 kg/m2) or have obesity (BMI =30 kg/m2) because fat accumulation in the liver leads to inflammation which leads to irreversible scarring. Unchecked liver inflammation and scarring can increase the risk of developing liver cancer and cardiovascular complications, such as heart attack and stroke. Weight loss can lead to improvement in liver biochemical tests, liver histology, serum insulin levels, and quality of life. Ideally, aim to lose between 5-10% of total body weight (1-2 lb per week) over the next 6 months. This can be achieved by adhering to a very low carbohydrate diet (60 g/day), high in lean protein and vegetables (variant of the Mediterranean diet). Reducing portion sizes can also make weight loss easier. [id number] intensity cardiovascular and/or resistance exercise (30 min, 3-4 days/week) paired with dietary modifications is helpful, as long as such an exercise regimen is permitted by your service bar cashier or primary care provider. Dietary counseling and/or a physician managed weight loss program is often extremely helpful in attaining this goal. - Small studies have shown that up to 3 cups of black coffee (no sugar, no cream) can be beneficial for liver health in patients with fatty liver. However, this should be avoided if coffee is a known trigger for gastrointestinal symptoms. - There is no known safe amount of alcohol use in fatty liver disease. Avoidance is recommended. - Smoking should also be avoided as it has been independently associated with the development of fatty liver disease and predisposes to insulin resistance and diabetes.
--- NOTE | 2024-12-26 07:31 | OP.CCLET_ITS ---
12/26/2024 Kandace Katz [id number] [facility] [address] [address] Re : Upper GI endoscopy procedure for Felipa Lima Dear Dr. Katz This procedure was performed on Thursday, December 26, 2024. My impressions and recommendations are as follows: Impressions : - Z-line irregular, 38 cm from the incisors. Biopsied. - No gross lesions in the entire stomach. - Chronic duodenitis. Biopsied. Recommendations : - Discharge patient to home. - Resume previous diet. - Continue present medications. - Await pathology results. My findings are described in the full procedure note, which is enclosed. If I can be of further assistance, please feel free to contact me at . Sincerely, Roderick Tang, 12/26/2024 7:30:24 AM This report has been signed electronically.
--- NOTE | 2024-12-26 07:31 | OP.EGD_ITS ---
Patient Name: Felipa Lima Procedure Date: 12/26/2024 6:32 AM Date of : 1955 Age: 69 Procedure: Upper GI endoscopy Indications: Epigastric abdominal pain, Acute post hemorrhagic anemia, Follow-up of Moya's esophagus, Peptic ulcer Providers: Roderick Tang DO Referring MD: Kandace Katz Medicines: Monitored Anesthesia Care Patient Profile: This is a 69 year old female. Refer to note in patient chart for documentation of history and physical. Patient has symptoms of acute epigastric abdominal pain, acute dyspepsia, acute heartburn and acute nausea. Her most recent EGD for biopsy and EGD for treatment of bleeding was within the past six months. Complications: No immediate complications. Procedure: Pre-Anesthesia Assessment: - Prior to the procedure, a History and Physical was performed, and patient medications and allergies were reviewed. The patient is competent. The risks and benefits of the procedure and the sedation options and risks were discussed with the patient. All questions were answered and informed consent was obtained. Patient identification and proposed procedure were verified by the physician in the pre-procedure area. Mental Status Examination: alert and oriented. Airway Examination: normal oropharyngeal airway and neck mobility. Respiratory Examination: clear to auscultation. CV Examination: normal. Prophylactic Antibiotics: The patient does not require prophylactic antibiotics. Prior Anticoagulants: The patient has taken no anticoagulant or antiplatelet agents except for NSAID medication. ASA Grade Assessment: II - A patient with mild systemic disease. After reviewing the risks and benefits, the patient was deemed in satisfactory condition to undergo the procedure. The anesthesia plan was to use monitored anesthesia care (MAC). Immediately prior to administration of medications, the patient was re-assessed for adequacy to receive sedatives. The heart rate, respiratory rate, oxygen saturations, blood pressure, adequacy of pulmonary ventilation, and response to care were monitored throughout the procedure. The physical status of the patient was re-assessed after the procedure. After obtaining informed consent, the endoscope was passed under direct vision. Throughout the procedure, the patient's blood pressure, pulse, and oxygen saturations were monitored continuously. The gastroscope was introduced through the mouth, and advanced to the third part of the duodenum. Small bowel enteroscopy was deemed necessary. The upper GI endoscopy was accomplished without difficulty. The patient tolerated the procedure well. Scope In: 7:19:03 AM Scope Out: 7:25:14 AM Total Procedure Duration Time 0 hours 6 minutes 11 seconds Findings: The Z-line was irregular and was found 38 cm from the incisors. Biopsies were taken with a cold forceps for histology. Verification of patient identification for the specimen was done. Estimated blood loss was minimal. No gross lesions were noted in the entire examined stomach. Patchy mild inflammation characterized by erosions and erythema was found in the first portion of the duodenum and in the second portion of the duodenum. Biopsies were taken with a cold forceps for histology. Verification of patient identification for the specimen was done. Estimated blood loss was minimal. Impression: - Z-line irregular, 38 cm from the incisors. Biopsied. - No gross lesions in the entire stomach. - Chronic duodenitis. Biopsied. Recommendation: - Discharge patient to home. - Resume previous diet. - Continue present medications. - Await pathology results. Procedure Code(s): --- Professional --- 26493, Small intestinal endoscopy, enteroscopy beyond second portion of duodenum, not including ileum; with biopsy, single or multiple CPT copyright 2021 [employer]. All rights reserved. The codes documented in this report are preliminary and upon field control inspector review may be revised to meet current compliance requirements. Roderick Tang DO 12/26/2024 7:30:24 AM This report has been signed electronically. Number of Addenda: 0 Note Initiated On: 12/26/2024 6:32 AM
--- NOTE | 2024-12-26 07:35 | PCM.POST.ANE ---
Anesthesia: Postop Eval I Current Vital Signs Temperature: 97 F Pulse Rate: 72 Blood Pressure: 121/74 Respiratory Rate: 14 Pulse Ox: 98 Oxygen Delivery Method: Room Air Assessment Airway patent: Yes Spontaneous unlabored respirations: Yes Mental status: Awake and Calm nausea: No Vomiting: No Anesthesia Complication: No Fluid Hydration Crystalloid volume administer (ml): 300 Total IV fluid infused: 300 Progress Note Anesthesia document: Postop Eval 1 completed: Yes
--- NOTE | 2024-12-26 14:45 | PCM.POSTANE2 ---
Anesthesia Postop Eval I Sum Postop Eval Completion status Anesthesia document: Postop Eval 1 completed: Yes Anesthesia Postop Eval I Summary Anesthesia Postop Eval I Summary: Anesthesia Postop Eval I: Assessment Summary Airway patent Yes 12/26/24 07:36 [email or web address] Spontaneous unlabored Yes 12/26/24 07:36 [email or web address] respirations Mental status Awake,Calm 12/26/24 07:36 [email or web address] nausea No 12/26/24 07:36 [email or web address] Vomiting No 12/26/24 07:36 [email or web address] Anesthesia Postop Eval I: Fluid Summary Crystalloid volume administer 300 12/26/24 07:36 [email or web address] (ml) Colloids volume administered ( ml) Blood Product volume administered (ml) Total IV fluid infused 300 12/26/24 07:36 [email or web address] Anesthesia Postop Eval I: Summary Notes Anesthesia Complication No 12/26/24 07:36 [email or web address] Anesthesia Complication Comment: Post-operative progress note Anesthesia: Postop Eval II Evaluation Mental status: Awake Pain Level: 0 nausea: No Vomiting: No
== END 2024-12-26 08:24 | disposition home or self-care (01) ==
LOC: EN 05:24 → AC 05:27
PROVIDERS: PCP Family Medicine; Referring Provider Family Medicine; Visit Provider Internal Medicine Gastroenterology
PROC: 0DJ08ZZ Inspection of Upper Intestinal Tract, Via Natural or Artificial Opening Endoscopic (ICD-10-PCS; CPT 43235; principal; 2024-12-26 06:25)
DX: K29.80 Duodenitis without bleeding (principal); K21.9 Gastro-esophageal reflux disease without esophagitis; K22.70 Barrett's esophagus without dysplasia; Z87.891 Personal history of nicotine dependence
CPT/HCPCS: 44361; 88305; 93005; J2405

== ENCOUNTER → 2025-01-31 | Outpatient (CLI) | payer MEDICARE, SELFPAY ==
[2025-01-31 16:13] LABS: Vitamin D,25 Hydroxy 18.4 ng/mL (30-100)
[2025-01-31 16:14] LABS: PTHIN 67 pg/mL (11-61)
[2025-01-31 16:41] LABS: Ionized Calcium Order 1.24
== END | disposition home or self-care (01) ==
LOC: BFHLAB 12:00
PROVIDERS: PCP Family Medicine; Visit Provider Family Medicine
DX: K76.0 Fatty (change of) liver, not elsewhere classified (principal); N18.4 Chronic kidney disease, stage 4 (severe)
CPT/HCPCS: 36415; 82306; 82330; 83036; 83970

== ENCOUNTER → 2025-02-13 | Outpatient (CLI) | payer MEDICARE, SELFPAY ==
--- NOTE | 2025-02-13 07:56 | US_ITS ---
PROCEDURE: ABD LIMITED W/ ELASTOGRAPHY REASON FOR EXAM: NAFLD COMPARISON: June 25, 2023. TECHNIQUE: Right upper quadrant abdominal ultrasound. Kristie ElastQ Imaging shear wave elastography for non-invasive assessment of liver tissue stiffness. Kristie EPIQ Elite. FINDINGS: LIVER: Size: Enlarged (hepatomegaly) Length: 21 cm Echotexture: Diffusely echogenic suggesting fatty infiltration Contour: Normal Lesions: None identified Elastography: EQI Med: 9.2 kPa EQI Med Kenny: 1.72 m/s IQR/Med: 12.2 %* GALLBLADDER: Normal COMMON BILE DUCT: Normal measuring 4 mm . PANCREAS: Normal The right kidney measures 12.9 cm 6.7 cm 6.6 cm. Renal cortex measures 2.2 cm. Multiple cysts are seen. The largest cyst measures 3.2 cm 2.8 cm 2.4 cm. This is in the inferior pole. There is also evidence of nonobstructive intrarenal calculi. The largest measures 1.8 cm 2.1 cm 1.4 cm in the lower pole. No right upper quadrant ascites. There is evidence of splenomegaly. The spleen measures 14 cm x 5.3 cm 5.1 cm. US/ABD Limited w/ Elastography IMPRESSION: Moderate hepatic fibrosis. Hepatomegaly and diffuse fatty infiltration of the liver. Right renal cysts and nonobstructive right intrarenal calculi. Splenomegaly. Reference Values: SRU <1.37 m/s (5.7kPa): No to mild fibrosis 1.37 m/s - 2.2 m/s: Moderate to severe fibrosis >2.2 m/s (15kPa): Significant fibrosis / cirrhosis METAVIR Score F2 or higher: 1.34 m/s (5.7kPa) F3 or higher: 1.55 m/s (7.3kPa) F4: 1.80 m/s (10kPa) * If the IQR/Med is >30%, the variance in the measurements is a large and the a ccuracy of the measurement may be in question. Reading Location: [facility]
--- OUTSIDE RECORDS SUMMARY | 2025-02-13 08:18 | XMS RPT_ITS | CCD ---
Author Organization [facility] Care Team Providers Care Whipped Topping Mixer Name Role Phone LORENA BEASLEY Attending Unavailable MIEDJEFFREY, KANDACE E Primary Care Unavailable FERNANDO TO Attending Unavailable MIEDEL, KANDACE E Primary Care Unavailable FERNANDO TO Attending Unavailable MIEDEL, KANDACE E Primary Care Unavailable Miedel, Kandace E Primary Care Provider Unavailab le [place]ale, Kandace E Primary Care Provider Unavailab le SAVANNA LACEY Admitting Unavailable SAVANNA LACEY Referring Unavailable MIEDEL, KANDACE E Primary Care Unavailable MIEDEL, KANDACE E Primary Care Unavailable MIEDEL, KANDACE E Primary Care Unavailable HUSEYIN, MESSI Attending Unavailable HUSEYIN, MESSI Admitting Unavailable MIEDEL, KANDACE E Primary Care Unavailable HUSEYIN, MESSI Attending Unavailable HUSEYIN, MESSI Admitting Unavailable Unavailable Primary Care Provider Unavailramana e Dr. Kandace Katz Primary Care Provider [phone] Dr. Kandace Katz Referring Provider Dr. Marco Antonio Samuel Attending Provider [phone] Dr. Marco Antonio Sameul Referring Provider Dr. Marco Antonio Samuel Other Provider [phone] Kandace Katz MD Primary Care Provider Dr. Kandace Katz MD Primary Care Provider Dr. Kandace Katz MD Attending Provider [phone] Dr. Kandace Katz MD Referring Provider Marco Antonio COMPUTERIZED MILL MILL RECORDER-C, Babs Attending Provider Marco Antonio COMPUTERIZED MILL MILL RECORDER-C, Babs Referring Provider Marcos SAHU, Dr. Garcia Attending Provider Marcos SAHU, Dr. Garcia Referring Provider Dr. Roderick Tang DO Attending Provider Kitty HOOKS, Dr. Vaughn Other Provider Lara SAHU, Dr. Jo Attending Provider Rosario SAHU, Dr. Newton Referring Provider Gianna SAHU, Dr. Jeronimo Primary Care Provider Dr. Kandace Katz MD Referring Provider [phone] Dr. Eric Sampson MD Attending Provider Gianna SAHU, Dr. Jeronimo Primary Care Provider Dr. Kandace Katz MD Referring Provider Marco Antonio COMPUTERIZED MILL MILL RECORDER-C, Babs Attending Provider Marco Antonio COMPUTERIZED MILL MILL RECORDER-CBabs Referring Provider Maxx Rosen Attending Provider Maxx Rosen Referring Provider Dr. Kandace Katz MD Primary Care Provider Dr. Kandace Katz MD Referring Provider JULIA SUAREZ Attending Unavailable MIEDEL, KANDACE E Primary Care Unavailable JULIA SUAREZ Referring Unavailable MIEDJEFFREY, KANDACE E Primary Care Unavailable JULIA SUAREZ Referring Unavailable MIEDJEFFREY, KANDACE E Primary Care Unavailable PORSHA TRAMMELL Attending Unavailable MIEDJEFFREY, KANDACE E Primary Care Unavailable FAITH PADRON Attending Unavailable GIANNA, KANDACE E Primary Care Unavailable Dr. Kandace Katz MD Primary Care Provider Miedel MD, Dr. Kandace Referring Provider [phone] Kitty HOOKS, Dr. Vaughn Attending Provider Lara SAHU, Dr. Jo Attending Provider Pedro SAHU, Dr. Phan Referring Provider Kitty HOOKS, Dr. Vaughn Other Provider [phone] Gianna SAHU, Dr. Jeronimo Attending Provider Friend, Roderick Consulting Unavailable Miedel, Kandace Primary Care Unavailable Miedel, Kandace Referring Unavailable FriendRoderick Attending Unavailable Miedel, Kandace Primary Care Unavailable Darián, Eric Referring Unavailable Adrián, Eric Attending Unavailable FriendRoderick Consulting Unavailable Miedel, Kandace Primary Care Unavailable FriendRoderick Attending Unavailable Miedel, Kandace Referring Unavailable Miedel, Kandace Primary Care Unavailable Miedel, Kandace Referring Unavailable Adrián, Eric Attending Unavailable Jose Rodríguez Attending Unavailable Miedel, Kandace Primary Care Unavailable Miedel, Kandace Referring Unavailable Miedel, Kandace Primary Care Unavailable Miedel, Kandace Referring Unavailable Babs Bernard Attending Unavailable Miedel, Kandace Primary Care Unavailable Babs Bernard Attending Unavailable Miedel, Kandace Referring Unavailable Miedel, Kandace Primary Care Unavailable Miedel, Kandace Referring Unavailable Adrián, Eric Attending Unavailable Miedel, Kandace Primary Care Unavailable Sandro Bermudez Attending Unavailable Sylvester Vasquez Referring Unavailable Miedel, Kandace Primary Care Unavailable Aman Ponce Referring Unavailable Sandro Bermudez Attending Unavailable Miedel, Kandace Primary Care Unavailable Babs Bernard Referring Unavailable Babs Bernard Attending Unavailable Maxx Rosen Referring Unavailable Maxx Rosen Attending Unavailable Miedel, Kandace Primary Care Unavailable Miedel, Kandace Attending Unavailable Miedel, Kandace Primary Care Unavailable Miedel, Kandace Referring Unavailable Miedel, Kandace Attending Unavailable Miedel, Kandace Primary Care Unavailable Jose Rodríguez Referring Unavailable Jose Rodríguez Attending Unavailable Miedel, Kandace Primary Care Unavailable Miedel, Kandace Referring Unavailable Miedel, Kandace Primary Care Unavailable Friend, Roderick Attending Unavailable Miedel, Kandace Primary Care Unavailable Miedel, Kandace Referring Unavailable Friend, Roderick Attending Unavailable Miedel, Kandace Primary Care Unavailable Babs Bernard Referring Unavailable Babs Bernard Attending Unavailable VALERI, PORSHA E Admitting Unavailable MIEDEL, KANDACE Consulting Unavailable VALERI, PORSHA E Primary Care Unavailable VALERI, PORSHA E Attending Unavailable PROVIDER, UNKNOWN Consulting Unavailable PROVIDER, UNKNOWN Consulting Unavailable MIEDEL, KANDACE Consulting Unavailable MIEDEL, KANDACE Attending Unavailable MIEDEL, KANDACE Admitting Unavailable MIEDEL, KANDACE Primary Care Unavailable PROVIDER, UNKNOWN Consulting Unavailable PROVIDER, UNKNOWN Consulting Unavailable MIEDEL, KANDACE Consulting Unavailable ALISHA NICKERSON MD Admitting Unava ilable ALISHA NICKERSON MD Primary Care Unava ilable ALISHA NICKERSON MD Attending Unava ilable PROVIDER, UNKNOWN Consulting Unavailable PROVIDER, UNKNOWN Consulting Unavailable MIEDEL, KANDACE Consulting Unavailable ALISHA NICKERSON MD Admitting Unava ilable KELSIETOALISHA FUENTES MD Primary Care Unava ilable KELSIETOALISHA FUENTES MD Attending Unava ilable PROVIDER, UNKNOWN Consulting Unavailable PROVIDER, UNKNOWN Consulting Unavailable Allergies Allergy Classification Reported Allergen(s) Allergy Type Date of Onset Reaction(s) Facility (20 sources) Codeine; Translations: [Unknown] Drug Allergy 9 GI Intolerance [facility] (20 sources) Morphine; Translations: [MORPHINE] Drug Allergy 9 GI Intolerance [facility] (13 sources) Ct: Iodinated Contrast- Oral And Iv Dye; Translations: [CT: IODINATED CONTRAST- ORAL AND IV DYE] Propensity to adverse reactions to drug 9 Hives [facility] (16 sources) Iodinated Contrast Media; Translations: [IODINATED CONTRAST MEDIA] Allergy to substance 9 [facility] (13 sources) Latex; Translations: [LATEX] Allergy to substance 2 [facility] (14 sources) wool; Translations: [WOOL] Allergy to substance 2 [facility] (8 sources) Cephalexin; Translations: [CEPHALEXIN] Drug Allergy 4 Other [facility] Comment on above: skin started to peel off (1 source) GADOLINIUM-CONT AINING CONTRAST MEDIA; Translations: [GADOLINIUM-CON TAINING CONTRAST MEDIA] Propensity to adverse reactions to drug (disorder) 3 Repository (1 source) Cephalexin Drug Allergy 5 [facility] Repository (1 source) Latex Drug allergy (disorder) 5 [facility] (1 source) Morphine Drug Allergy 5 [facility] Repository (1 source) Contrast media Drug allergy (disorder) [facility] Repository (1 source) Morphine Drug Allergy [facility] Repository Medications Current Medications Medication Drug Class(es) Dates Sig (Normalized) Sig (Original) acetaminophen 500 mg oral capsule (10 sources) Start: 07-17-2024 take 1 capsule by [...] to: Post-Procedure allopurinol 100 mg oral tablet (14 sources) Xanthine Oxidase Inhibitor Start: 10-13-2021 take 1 tablet by mouth once daily Allopurinol 100 mg tablet Active 100 mg PO DAILY October 13, 2021 12:00am furosemide 20 mg oral tablet (14 sources) Loop Diuretic Start: 10-13-2021 Furosemide Act bowen EACH PO October 13, 2021 9:21am Start: 10-13-2021 End: 07-16-2024 Furosemide 20 mg tablet Disc ontinued 20 mg PO NEEDED as needed for Edema October 13, 2021 12:00am July 16, 2024 2:16pm nitrofurantoin, macrocrystals 100 mg oral capsule (7 sources) Nitrofuran Antibacterial Start: 07-17-2024 take 1 capsule by mouth every twelve hours at mealtime Nitrofurantoin Macrocrystal 100 mg capsule Active 100 mg PO Q12H as needed for BLADDER July 17, 2024 1:00am must administer with a meal/food 24 hr oxybutynin chloride 10 mg extended release oral tablet (7 sources) Cholinergic Muscarinic Antagonist Start: 07-17-2024 take [...] (DR/EC) Active 40 mg PO daily 180 1 September 25, 2024 12:00am Start: 07-16-2024 End: [...] daily, First dose on 06/16/19 at 0900 Risankizumab-Rzaa (7 sources) Start: 07-16-2024 Risankizumab-R zaa (Skyrizi) 150 mg/mL pen injector Active 150 mg SC every 12 weeks July 16, 2024 1:00am sodium bicarbonate 650 mg oral tablet (14 sources) Start: 10-13-2021 take 650 mg by mouth once daily Sodium Bicarbonate Active 650 MG PO DAILY October 13, 2021 9:21am Start: 10-13-2021 take 1 tablet by komal th three times daily Sodium Bicarbonate 650 mg tablet Active 650 mg PO THREE TIMES A DAY October 13, 2021 12:00am spironolactone 25 mg oral tablet (8 sources) Aldosterone Antagonist Start: 11-13-2024 End: 02-04-2025 Spironolactone 25 mg tablet Active 25 mg PO DAILY as needed for PER DR 90 0 February 04, 2025 9:06am Hold if serum potassium more than 5.1. [...] 1,000 mL cholecalciferol 0.125 mg oral capsule (14 sources) Vitamin D Start: 10-13-2021 End: 07-16-2024 [...] PACU. ferrous sulfate 325 mg oral tablet (14 sources) Start: 10-13-2021 End: 07-16-2024 take 1 [...] mL 1 ml ixekizumab 80 mg/ml auto-injector (14 sources) Interleukin-17A Antagonist Start: 10-13-2021 End: 07-16-2024 [...] IVPB 4.5 g (premix) polyethylene glycol 3350 101784 mg / potassium chloride 2970 mg / sodium bicarbonate 6740 mg / sodium chloride 5860 mg / sodium sulfate 94676 mg powder for oral solution (7 sources) Osmotic Laxative Start: 07-17-2024 End: 08-31-2024 Peg 3350-Electrolytes (Golytely) 236-22.74-6.74 -5.86 gram recon soln Discontinued 240 mL PO Q10M 4000 0 July 17, 2024 1:00am August 31, 2024 1:42pm Colonoscopy take as directed for split dose bowel prep microencapsulated potassium chloride 20 meq extended release oral tablet (2 sources) Start: 06-22-2019 End: 06-22-2019 potassium chloride SA (K-DUR,KLOR-CON) CR tablet 40 mEq Start: 06-20-2019 End: 06-20-2019 take 20 mEq intravenous route every two hours potassium chloride 20 mEq in 100 mL IVPB potassium citrate 10 meq extended release oral tablet (14 sources) Start: 10-13-2021 End: 07-16-2024 take 1 [...] phos mono (K-PHOS NEUTRAL) tablet 250 mg Resmetirom (Rezdiffra) 100 mg tablet (4 sources) Start: 11-20-2024 End: 12-24-2024 take 1 tablet by mouth once daily Resmetirom (Rezdiffra) 100 mg tablet Discontinued 100 mg PO daily 26 05November 20, 2024 12:00am December 24, 2024 2:46pm Faxed to [facility] Start: 11-20-2024 take 1 tablet by komal once daily Resmetirom (Rezdiffra) 100 mg tablet Active 100 mg PO daily November 20, 2024 12:00am Faxed to [facility] 1000 ml sodium chloride 9 mg/ml injection (2 sources) Start: 02-21-2020 End: 02-21-2020 take 50 mL intravenous route every hour 50 mL/hr, Intravenous, Continuous, Starting Sarahi 02/21/20 at 1445, Pre-Procedure Start: 06-17-2019 End: 06-23-2019 sodium chloride (PF) (NS) fl ush 5 mL Problems Active Problems Problem Classification Problem Date Documented Da te Episodic/Chronic Abdominal hernia (14 sources) Hernia of anterior abdominal wall; Translations: [Ventral hernia without obstruction or gangrene] 10-13-2021 Episodic Abdominal pain (20 sources) Abdominal pain; Translations: [Unspecified abdominal pain] Onset: 01-11-2025 10-13-2021 Episodic Acute and unspecified renal failure [...] Onset: 03-06-2024 06-16-2019 Episodic Chronic kidney disease (14 sources) Chronic kidney disease stage 5; Translations: [Chronic kidney disease, stage 5] 10-13-2021 Chronic Esophageal disorders (20 sources) Gastro-esophageal reflux disease with esophagitis; Translations: [Gastroesophageal reflux disease] Onset: 07-17-2024 10-13-2021 Chronic Comment on above: CONTROLLED WITH MED Gastroduodenal ulcer (except hemorrhage) (12 sources) Duodenal ulcer with perforation; Translations: [Chronic or unspecified duodenal ulcer with perforation] 06-16-2019 Chronic Gastrointestinal hemorrhage (7 sources) Duodenal ulcer with hemorrhage AND perforation; [...] to viral disease] Episodic Malaise and fatigue (14 sources) Fatigue; Translations: [Other fatigue] 10-13-2021 Episodic Nausea and vomiting (12 sources) Nausea; Translations: [Nausea] Onset: 01-11-2025 09-25-2024 Episodic Other aftercare (2 sources) Surgical follow-up; Translations: [Follow-up examination, following other surgery] Episodic Other diseases of kidney and ureters (14 sources) Hydronephrosis; Translations: [Unspecified hydronephrosis] 10-21-2021 Episodic Other gastrointestinal disorders (14 sources) Abdominal mass; Translations: [Right upper quadrant abdominal swelling, mass and lump] 10-13-2021 Episodic Other gastrointestinal disorders (2 sources) Right upper quadrant abdominal swelling, mass and lump; Translations: [Abdominal or pelvic swelling, mass, or lump, right upper quadrant] Episodic Other inflammatory condition of skin (7 sources) Psoriasis; Translations: [Psoriasis, unspecified] 07-16-2024 Chronic Other inflammatory condition of skin (1 source) Psoriasis vulgaris; Translations: [Psoriasis vulgaris] Onset: 11-20-2024 Chronic Other liver diseases (20 sources) Fatty (change of) liver, not elsewhere classified; Translations: [Metabolic dysfunction-associa sacha steatotic liver disease (MASLD)] Onset: 02-07-2025 07-17-2024 Chronic Other liver diseases (7 sources) Steatosis of liver; Translations: [Fatty (change of) liver, not elsewhere classified] 07-16-2024 Chronic Other nutritional; endocrine; and metabolic disorders (2 sources) Morbid obesity; Translations: [Morbid (severe) obesity due to excess calories] 01-29-2025 Chronic Other nutritional; endocrine; and metabolic disorders (1 source) Hypercalcemia; Translations: [Hypercalcemia] Onset: 08-17-2024 Chronic Residual codes; unclassified (14 sources) Edema; Translations: [Edema, unspecified] 10-13-2021 Episodic Residual codes; unclassified (2 sources) Finding related to awareness of diagnosis; Translations: [Other specified health status] 06-16-2019 Episodic Residual codes; unclassified (10 sources) Family history of cancer of colon; Translations: [Family history of malignant neoplasm of digestive organs] 07-17-2024 Episodic Comment on above: Brother in his early 50's Thyroid disorders (12 sources) Thyroid nodule; Translations: [Nontoxic single thyroid [...] rating no biopsy is recommended by the [employer], however, this patient's preference to proceed with biopsy so her request was granted. Full details are given in the procedures section of this note. I did discuss with her the high rate of [place] 1 results when the composition is mixed [...] conditions (not mental disorders or infectious disease) (14 sources) Other specified abnormal findings of blood [...] Test Name Value Interpretation Reference Range Facility PTH, INTACT [CCL]on 02-13-20 25 PTH, Intact 83 pg/mL High 15-65 [facility] Comment on above: Result Comment: [facility] [address] [place] [id number] Antonio Chatman III, M.D. [id number] Performed By: #### 2 [id number] #### [facility],[address] [place] [address] 49118 BMP with eGFRon 02-11-2025 AGE 69 years Normal [facility] Comment on above: Performed By: #### 2 [id number] #### [facility],[address] [place] [address] 19302 Anion gap [Moles/Vol] 20 mmol/L Normal 10 - 20 [facility] Comment on above: Performed By: #### 2 [id number] #### [facility],[address] [place] [address] 37688 BMP with eGFR Normal [facility] Comment on above: Result Comment: BASI C METABOLIC PANEL Performed By: #### 2 08294 #### [facility],[address] [place] [address] 20971 Calcium [Mass/Vol] 9.2 mg/dL Normal 8.5 - 10.1 [facility] Comment on above: Performed By: #### 2 90132 #### [facility],[address] [place] [address] 03069 Chloride [Moles/Vol] 105 mmol/L Normal 98 - 107 [facility] Comment on above: Performed By: #### 2 78800 #### [facility],[address] [place] [address] 87584 CO2 [Moles/Vol] 17.8 mmol/L Low 21.0 - 32.0 [facility] Comment on above: Performed By: #### 2 78192 #### [facility],[address] [place] [address] 29675 Creatinine [Mass/Vol] 2.10 mg/dL High 0.55 - 1.02 [facility] Comment on above: Performed By: #### 2 55728 #### [facility],[address] [place] [address] 17947 eGFR 23 ML/MINUTE Low 60 - 999 [facility] Comment on above: Performed By: #### 2 01161 #### [facility],[address] [place] [address] 38704 eGFR(AA) 28 ML/MINUTE Low 60 - 999 [facility] Comment on above: Result Comment: ACCO RDING TO THE NATIONAL KIDNEY DISEASE EDUCATION PROGRAM(NKDE), A NORMAL eGFR IS A VALUE GREATER THAN OR EQUAL TO 60 ML/MIN/1.73 SQ METERS. CHRONIC KIDNEY DISEASE: <60mL/MIN/1.73 SQ METERS KIDNEY FAILURE: <15mL/MIN/1.73 SQ METERS THIS TEST SHOULD ONLY BE USED FOR PATIENTS 18 YEARS OF AGE AND OLDER. Performed By: #### 2 63459 #### [facility],[address] [place] [address] 12925 Glucose [Mass/Vol] 228 mg/dL High 74 - 106 [facility] Comment on above: Performed By: #### 2 55504 #### [facility],[address] [place] [address] 96224 Potassium [Moles/Vol] 4.6 mmol/L Normal 3.5 - 5.1 [facility] Comment on above: Performed By: #### 2 97439 #### [facility],[address] [place] [address] 67841 Sodium [Moles/Vol] 138 mmol/L Normal 136 - 145 [facility] Comment on above: Performed By: #### 2 00457 #### [facility],[address] [place] [address] 96032 Urea nitrogen [Mass/Vol] 50 mg/dL High 7 - 18 [facility] Comment on above: Performed By: #### 2 15700 #### [facility],[address] [place] [address] CBC + DIFFon 02-11-2025 Baso # 0.03 x10EE3/UL Normal 0.00 - 0.10 [facility] Comment on above: Performed By: #### 2 50751 #### [facility],[address] [place] [address] 20985 Basophils/100 WBC (Bld) 0.4 % Normal 0.0 - 2.0 [facility] Comment on above: Performed By: #### 2 99904 #### [facility],[address] [place] [address] CBC + DIFF Normal [facility] Comment on above: Result Comment: CBC- COMPLETE BLOOD COUNT Performed By: #### 2 36260 #### [facility],[address] [place] [address] EO # 0.11 x10EE3/UL Normal 0.00 - 0.50 [facility] Comment on above: Performed By: #### 2 00930 #### [facility],[address] [place] [address] 88625 Eosinophils/100 WBC (Bld) 1.5 % Normal 0.0 - 7.0 [facility] Comment on above: Performed By: #### 2 48788 #### [facility],[address] [place] [address] Erythrocyte distribution width (RBC) [Ratio] 14.0 % Normal 12.0 - 15.6 [facility] Comment on above: Performed By: #### 2 17139 #### [facility],[address] [place] [address] Hematocrit (Bld) [Volume fraction] 39.4 % Normal 34.0 - 46.0 [facility] Comment on above: Performed By: #### 2 10124 #### [facility],[address] [place], [place] [id number] Hemoglobin (Bld) [Mass/Vol] 13.4 g/dL Normal 12.0 - 16.0 [facility] Comment on above: Performed By: #### 2 68892 #### [facility],[address] [place] [address] Lymph # 0.84 x10EE3/UL Normal 0.80 - 2.80 [facility] Comment on above: Performed By: #### 2 49051 #### [facility],[address] [place] [address] Lymphocytes/100 WBC (Bld) 11.1 % Low 20.0 - 45.0 [facility] Comment on above: Performed By: #### 2 21904 #### [facility],[address] [place] [address] MANUAL DIFF N/A Normal [facility] Comment on above: Performed By: #### 2 89478 #### [facility],[address] [place] [address] MCH (RBC) [Entitic mass] 32 pg Normal 27 - 33 [facility] Comment on above: Performed By: #### 2 11054 #### [facility],[address] [place] [address] MCHC 34 X10 3 Normal 32 - 36 [facility] Comment on above: Performed By: #### 2 11335 #### [facility],[address] [place] [address] MCV (RBC) [Entitic vol] 93 fL Normal 80 - 99 [facility] Comment on above: Performed By: #### 2 07642 #### [facility],[address] [place], [place] [id number] [place] # 0.44 x10EE3/UL Normal 0.20 - 1.00 [facility] Comment on above: Performed By: #### 2 49046 #### [facility],[address] [place] [address] MONOS % 5.8 % Normal 0.0 - 10.0 [facility] Comment on above: Performed By: #### 2 13223 #### [facility],[address] [place] [address] Morphology Yuri (Bld) [Interp] N/A Normal [facility] Comment on above: Performed By: #### 2 36749 #### [facility],[address] [place] [address] Neut # 6.14 x10EE3/UL Normal 1.50 - 7.10 [facility] Comment on above: Performed By: #### 2 23558 #### [place] [address] Neutrophils/100 WBC (Bld) 81.2 % High 46.0 - 76.0 [facility] Comment on above: Performed By: #### 2 48941 #### [place] [address] PLATELET 227 x10EE3/UL Normal 150 - 450 [facility] Comment on above: Performed By: #### 2 63543 #### [place] [address] Platelet mean volume (Bld) [Entitic vol] 8.7 fL Normal 6.6 - 10.5 [facility] Comment on above: Result Comment: AUTO MATED DIFFERENTIAL Performed By: #### 2 32345 #### [place] [address] RBC 4.25 x 10EE6/UL Normal 4.10 - 5.30 [facility] Comment on above: Performed By: #### 2 46769 #### [place] [address] WBC 7.6 x 10EE3/UL Normal 4.5 - 10.8 [facility] Comment on above: Performed By: #### 2 28680 #### [place] [id number] URIC ACIDon 02-11-2025 Urate [Mass/Vol] 6.5 mg/dL High 2.6 - 6.0 [facility] Comment on above: Performed By: #### 2 50762 #### [facility],[address] [place] [address] 62150 URINE CREATININE AND PROTEIN RATIOon 02-11-2025 CREATININE UR 68.47 mg/dl Normal [facility] Comment on above: Performed By: #### 2 73630 #### [facility],[address] [place] [address] 29564 PC RATIO 1.48 mg/dL Normal 0.00 - 10.00 [facility] Comment on above: Performed By: #### 2 32528 #### [facility],[address] [place] [address] 98299 Protein (U) [Mass/Vol] 101.60 mg/dL High 0.00 - 10.00 [facility] Comment on above: Performed By: #### 2 11819 #### [facility],[address] [place] [address] 22624 VITAMIN D, 25 HYDROXYon 01-25 VitD 22.50 ng/mL Low 30.00 - 100 [facility] Comment on above: Result Comment: 25-O HD3 [...] D2 Not Established Performed By: #### 2 08683 #### [facility],[address] [place] [address] 20782 [id number] 02-01-2025 Ionized Calcium 1.24 mmol/L Normal 1.09-1.30 [facility] Comment on above: Performed By: #### L 501.2276, L501.9985, L506.1001, L509.1000 ####[facility] [address] [place], [address] Hemoglobin A1con 01-31-2025 HbA1c (Bld) [Mass fraction] 6.7 % High <=5.6 [facility] Comment on above: Result Comment: Norm al < 5.7 % Prediabetic 5.7 - 6.4 % Diabetic >or= 6.5 % Please note range changes. Performed By: #### L 501.2276, L501.9985, L506.1001, L509.1000 ####[facility] [address] [place], [address] Hemoglobin A1c percentageOrd ered By: Kandace Katz on 01-31-2025 HbA1c (Bld) [Mass fraction] 6.7 % High <5.7 [facility] Comment on above: Normal < 5.7 % Predi abetic 5.7 - 6.4 % Diabetic >or= 6.5 % Please note range changes. PTHINon 01-31-2025 PTH 67 pg/mL High 11-61 [facility] Comment on above: Performed By: #### L 501.2276, L501.9985, L506.1001, L509.1000 #### [facility] [address] [place], [address] Vitamin D,25 Hydroxyon 01-31 Vitamin D 25-OH 18.4 ng/mL Low 30-100 [facility] Comment on above: Result Comment: Chio min D Status Deficiency: <20 ng/mL (50nmol/L) Insufficiency: 20-30 ng/mL (50-75 nmol/L) Sufficiency: 30-100 ng/mL (75-250 nmol/L) Toxicity: >100 ng/mL (>250 nmol/L) Performed By: #### L 501.2276, L501.9985, L506.1001, L509.1000 #### [facility] [address] [place], [address] Gastroenterology Visit Repor ton 01-29-2025 Gastroenterology Visit Report [facility] Gastroenterology [address] [place] [address] OFFICE VISIT Date of Service: 01/29/25 MR#: [id number] Acct: [id number] Name: FELIPA LIMA Rep #: [id number] : 1955 Provider: Dr. Eric love MD Age/Sex: 69/F Location: [facility] [place] Status: Signed Intake Vital Signs 11/13/24 12:29 12/26/24 06:24 01/29/25 10:10 Height 5 ft 3 in 5 ft 3 in 5 ft 3 in Weight: 246 lb BMI 43.5 BP 130/78 H Blood Pressure Location Rt brachial Position Sitting Pulse 82 Pulse Oximetry (%) 95 Oxygen Delivery Method room air Intake Visit Reasons: 3 M FU Chief Complaint: MASLD Allergies cephalexin Allergy (Severe, Verified 01/29/25 10:10) Other Iodinated Contrast Media Allergy (Mild, Verified 01/29/25 10:10) rash latex Allergy (Verified 01/29/25 10:10) Rash wool Allergy (Verified 01/29/25 10:10) Rash codeine Adverse Reaction (Mild, Verified 01/29/25 10:10) gi upset morphine Adverse Reaction (Mild, Verified 01/29/25 10:10) gi upset Medications ???Medication ???Instructions ???Recorded ???Confirmed ???Type allopurinol 100 mg tablet 100 mg PO DAILY 10/13/21 01/29/25 History sodium bicarbonate 650 mg tablet 650 mg PO TID 10/13/21 01/29/25 Hi story risankizumab-rzaa 150 mg/mL 150 mg subcut Q12W 07/16/24 History subcutaneous pen injector (Adelsoyrtigre) acetaminophen 500 mg capsule 500 mg PO Q6H PRN pain 07/17/24 History nitrofurantoin macrocrystal 100 mg 100 mg PO Q12H PRN BLADDER 07/1701/29/25 History capsule oxybutynin chloride 10 mg 10 mg PO QDAY 07/17/24 01/29/25 Hi story tablet,extended release 24 hr pantoprazole 40 mg tablet,delayed 40 mg PO QDAY #180 tabs 09/25/24 01/29/25 Rx release spironolactone 25 mg tablet 25 mg PO DAILY PRN PER 12/24/24 01/29/25 History Have you fallen in the past year?: No PFSH Medical History Wears contact lenses Thyroid disease Arthritis Bladder [...] Complaint: MASLD Details: FELIPA LIMA, is a 69 F who presents to the office today for follow up. 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 Requesting consult to hepatology for MASLD. Pt reports she feels stable over all. Denies abdominal pain. Some swelling in lower legs. No SOB. Tries to be active. BM are normal. EGD 7.2.25- Z-line irregular, no gross lesions in the entire stomach, chronic duodenitis PATH: Esophagus negative, Duodenum with Jodi gland hyperplasia with acute inflammation and gastric mutin cell metaplasia OV 8..25- Pt well since last visit. States she was unable to get Rezdiffra due to high cost. States she has been having left sided abdominal pain. No changes in bowel movements. Denies heartburn or dysphagia. No other concerns. Patient gets nausea, vomiting and bloating sensation after eating greasy food. She also had one-time projectile vomiting after eating wanton soup about a month ago. Denies family history of celiac disease or other autoimmune disease ROS Const Constitutional: Positive for fatigue; No fever(s) or weight change ENT ENT: No difficulty swallowing Resp Respiratory: No shortness of breath or wheezing Cardio Cardiology: No chest pain at rest or dyspnea on exertion Gastro GI: Positive for abdominal pain; No belching, bloating, change in bowel habits, change in stool character, coffee ground emesis, constipation, cramping, diarrhea, heartburn, difficulty swallowing, feeling full early, excessive flatus, incontinent of stools, Vomiting blood/hematemesis, Blood in stool, loose stools, Black,tarry stools, nausea/dyspepsia, pain with swallowing, vomiting or other Genitourinary-Female: No difficulty urinating or burning urination Musc Musculoskeletal: P (more content not included)... Normal [facility] 12-27-2024 LARRY Telephone (URCANT) -- FELIPA LIMA ([id number]) 1955 F Date Time Provider Department 12/27/24 FAITH PADRON During your visit today, we recorded the following information about you: Beatris Iraheta MA 12/27/2024 9:53 AM Signed Patient was calling for a refill on her Nitrofurantoin sent to Radhika in chart, please advise. NADER Tracy Lindsay, APRN.[facility] 12/27/2024 10:31 AM Signed Does she feel that she has an infection ? She should get a c+s done (order in the chart). I did send in rx below. Thanks, The following approved medication requests have been transmitted electronically. Requested Prescriptions Signed Prescriptions Disp Refills nitrofurantoin monohydrate and macrocrystal (MACROBID) 100 mg capsule 10 capsule 2 Sig: Take 1 capsule by mouth two times a day for 5 days. Authorizing Provider: FAITH PADRON APRN.Beatris Del Rio MA 01/01/2025 11:00 AM Signed Patient picked up antibiotic but was not able to get culture, patient states she is feeling better now. Beatris Iraheta MA Allergies As of Date: 12/27/2024 Noted Allergy Reaction KEFLEX (CEPHALEXIN) 10/26/2023 2 - Rash CODEINE 07/06/2022 8 - GI Upset GADOLINIUM-CONTAINING CONTRAST ME*07/06/2022 4 - Hives LATEX 07/06/2022 2 - Rash MORPHINE 07/06/2022 8 - GI Upset WOOL 07/06/2022 2 - Rash IODINATED CONTRAST MEDIA 06/15/2019 4 - Hives 2 - Rash Date Reviewed: 10/16/2024 Reviewed by: Dannielle Johnson [facility] - Fully Assessed Primary Visit Diagnosis:Acute cystitis with hematuria [N30.01] Order(s):nitrofurantoin monohydrate and macrocrystal (MACROBID) 100 mg capsuleTake 1 capsule by mouth two times a day for 5 days.Disp: 10 capsuleRfl: 2 BACTERIAL CULTURE, URINE [SQURCUL] Order #: [id number] FUTURE Prescriptions as of 01/01/2025 - nitrofurantoin monohydrate and macrocrystal (MACROBID) 100 [...] every morning. Problem List As Of Date 12/27/2024 Noted Resolved Gastroesophageal reflux disease [K21.9] 07/06/2022 VICKI (acute kidney injury) (HCC) [N17.9] 07/06/2022 Morbidly obese (HCC) [E66.01] 07/06/2022 Calculus of ureter [N20.1] 07/06/2022 Obesity, Class III, BMI >= 40 [E66.813] 08/26/2022 Stage 5 chronic kidney disease (HCC) [N18.5] 08/02/2023 Sensory urge incontinence [N39.41] 09/02/2023 Screening for genitourinary condition [Z13.89] 10/10/2023 Acute cystitis with hematuria [N30.01] 03/06/2024 Kidney stone [N20.0] 03/06/2024 Prescriptions ordered this encounter Disp Refills Start End NITROFURANTOIN MONOHYDRATE AND MACROCR* 10 c* 2 12/27/2024 01/01/2025 Route: PO Sig: Take 1 capsule by mouth two times a day for 5 days. Medications Discontinued During This Encounter Prescriptions - nitrofurantoin monohydrate and macrocrystal (MACROBID) 100 mg capsule (Discontinued) Encounter Status:Closed by BEATRIS IRAHETA on 01/01/25 [facility] 12 Lead EKGon 12-26-2024 12 Lead EKG [facility] Cardiovascular Services [address] [place] [address] 12 Lead EKG 12/26/24 0636 MR#: [id number] Acct: [id number] Name: FELIPA LIMA SHREYAS Rep #: [id number] : 1955 69 From: Sandro Bermudez MD Attending Dr: Roderick Friend, DO Status: DEP NM C Ordering Dr: Sylvester Vasquez MD Date: 12/26/24 Location: EN Sex: F C Admitted: Test Reason : PREOP Blood Pressure : */* mmHG Vent. Rate : 67 BPM Atrial Rate : 67 BPM P-R Int : 166 ms QRS Dur : 80 ms QT Int : 426 ms P-R-T Axes : 36 -33 31 degrees QTcB Int : 450 ms Normal sinus rhythm Left axis deviation Low voltage QRS Abnormal ECG When compared with ECG of 05-Sep-2024 08:28, Sinus rhythm has replaced Electronic ventricular pacemaker Confirmed by LARA SAHU, SANDRO ([id number]), newspaper or periodical editor JILLIAN REYES ([id number]) on 12/27/2024 1:23:35 PM Referred By: Kandace Katz Confirmed By: SANDRO BERMUDEZ MD 12/27/24 1323 Date Sandro Bermudez MD CC: Dr. Sylvester Vasquez MD; Dr. Kandace Katz MD; Roderick Tang DO Signed Normal [facility] EGD Reporton 12-26-2024 EGD Report [facility] Medical Records Department [address] [place] [address] EGD Report MR#: [id number] Acct: [id number] Name: FELIPA LIMA SHREYAS Rep #: [id number] : 1955 69 From: Roderick Tang DO PCP: Dr. Kandace Katz MD Status:[facility] Patient Name: Felipa Lima Procedure Date: 12/26/2024 6:32 AM Date of : 1955 Age: 69 Procedure: Upper GI endoscopy Indications: Epigastric abdominal pain, Acute post hemorrhagic anemia, Follow-up of Sandoval's esophagus, Peptic ulcer Providers: Roderick Tang DO Referring MD: Kandace Katz Medicines: Monitored Anesthesia Care Patient Profile: This is a 69 year old female. Refer to note in patient chart for documentation of history and physical. Patient has symptoms of acute epigastric abdominal pain, acute dyspepsia, acute heartburn and acute nausea. Her most recent EGD for biopsy and EGD for treatment of bleeding was within the past six months. Complications: No immediate complications. Procedure: Pre-Anesthesia Assessment: [...] patient has taken no anticoagulant or antiplatelet agents except for NSAID medication. ASA Grade Assessment: II - A patient [...] and oxygen saturations were monitored continuously. The gastroscope was introduced through the mouth, and advanced to the third part of the duodenum. Small bowel enteroscopy was deemed necessary. The upper GI endoscopy was accomplished without difficulty. The patient tolerated the procedure well. Scope In: 7:19:03 AM Scope Out: 7:25:14 AM Total Procedure Duration Time 0 hours 6 minutes 11 seconds Findings: The Z-line was irregular and was found 38 cm from the incisors. Biopsies were taken with a cold forceps for histology. Verification of patient identification for the specimen was done. Estimated blood loss was minimal. No gross lesions were noted in the entire examined stomach. Patchy mild inflammation characterized by erosions and erythema was found in the first portion of the duodenum and in the second portion of the duodenum. Biopsies were taken with a cold forceps for histology. Verification of patient identification for the specimen was done. Estimated blood loss was minimal. Impression: - Z-line irregular, 38 cm from the incisors. Biopsied. - No gross lesions in the entire stomach. - Chronic duodenitis. Biopsied. Recommendation: - Discharge patient to home. - Resume previous diet. - Continue present medications. - Await pathology results. Procedure Code(s): --- Professional --- 32164, Small intestinal endoscopy, enteroscopy beyond second portion of duodenum, not including ileum; with biopsy, single or multiple CPT copyright 2021 [employer]. All rights reserved. The codes documented in this report are preliminary and upon cnc operator machinist review may be revised to meet current compliance requirements. Roderick Tang DO 12/26/2024 7:30:24 AM This report has been signed electronically. Number of Addenda: 0 Note Initiated On: 12/26/2024 6:32 AM 12/26/24730 Date Roderick Tang DO Cosigner Signature: Date (if indicated) CC: Dr. Kandace Katz MD; Roderick Tang DO Date Dictated: 12/26/24631 Date Transcribed: Global Sales Executive: ALEXIS Signed [facility] MR/POSTOP.[facility] 12-26-2024 MR/POSTOP.[facility] Medical Records Department [address] [place] [address] Anesthesia Postop Eval I 12/26/2435 MR#: [id number] Acct: [id number] Name: MAUDENishiFELIPA PRITCHETT Rep #: [id number] : 1955 69 From: Jefry Alford PCP: Dr. Kandace Katz MD Status:REG SDC Y Race: C Location: [place] [address] Anesthesia: Postop Eval I Current Vital Signs Temperature: 97 F Pulse Rate: 72 Blood Pressure: 121/74 Respiratory Rate: 14 Pulse Ox: 98 Oxygen Delivery Method: Room Air Assessment Airway patent: Yes Spontaneous unlabored respirations: Yes Mental status: Awake and Calm nausea: No Vomiting: No Anesthesia Complication: No Fluid Hydration Crystalloid volume administer (ml): 300 Total IV fluid infused: 300 Progress Note Anesthesia document: Postop Eval 1 completed: Yes 12/26/24735 Date Jefry Mendiola Signature: Date CC: Signed Normal [facility] MR/[id number] 12-26-2024 MR/POSTOPAN2 [facility] Medical Records Department [address] [place] [address] Anesthesia Postop Eval II 12/26/24 1445 MR#: [id number] Acct: [id number] Name: FELIPA LIAM SHREYAS Rep #: [id number] : 1955 69 From: Rolando Fuentes CRNA PCP: Dr. Kandace Katz MD Status:DEP [facility] Y Race: C Location: EN Anesthesia Postop Eval I Sum Postop Eval Completion status Anesthesia document: Postop Eval 1 completed: Yes Anesthesia Postop Eval I Summary Anesthesia Postop Eval I Summary: Anesthesia Postop Eval I: Assessment Summary Airway patent Yes 12/26/24 07:36 [email or web address] Spontaneous unlabored Yes 12/26/24 07:36 [email or web address] respirations Mental status Awake,Calm 12/26/24 07:36 [email or web address] nausea No 12/26/24 07:36 [email or web address] Vomiting No 12/26/24 07:36 [email or web address] Anesthesia Postop Eval I: Fluid Summary Crystalloid volume administer 300 12/26/24 07:36 [email or web address] (ml) Colloids volume administered ( ml) Blood Product volume administered (ml) Total IV fluid infused 300 12/26/24 07:36 [email or web address] Anesthesia Postop Eval I: Summary Notes Anesthesia Complication No 12/26/24 07:36 [email or web address] Anesthesia Complication Comment: Post-operative progress note Anesthesia: Postop Eval II Evaluation Mental status: Awake Pain Level: 0 nausea: No Vomiting: No 07/02/25 1445 Date Rolando Fuentes CRISTEL Mendiola Signature: Date CC: Signed Normal [facility] Surgery Specimen Level Juan 12-26-2024 Surgery Specimen Level IV Patient Age/Sex Location Account Attending Physician FELIPA LIMA 69/F EN [id number] Roderick Tang DO Specimen: [id number] Received: 12/26/24 Status: INDER Arboleda Num: [id number] Spec Type: EGD BIOPSY Subm Dr: Roderick Friend, DO HEADER OPERATION: EGD, biopsy PRE-OP DIAGNOSIS: GERD, MASLD, right upper quadrant pain, nausea TISSUE SUBMITTED: A- Distal esophagus biopsy, B- Duodenum biopsy MICROSCOPIC DIAGNOSIS A. Distal esophagus, biopsy: - Benign squamous and columnar mucosa. - Negative for goblet cell metaplasia. - Negative for dysplasia. B. Duodenum, biopsy: - Jodi gland hyperplasia with acute inflammation and gastric mucin cell metaplasia, suggestive of peptic injury. - Negative for increased intraepithelial lymphocytes. MICROSCOPIC DESCRIPTION Slides are reviewed. GROSS DESCRIPTION A. Received in fixative is one container labeled with the patient's name and designated Distal esophagus biopsy. The specimen consists of multiple irregular fragments of light chinchilla soft tissue that in aggregate measure 0.3 to 0.5 cm. The specimen is totally submitted in one cassette. B. Received in fixative is one container labeled with the patient's name and designated Duodenum biopsy. The specimen consists of one irregular fragment of light chinchilla soft tissue that measures 0.3 cm. The specimen is totally submitted in one cassette. MARIELY/ 12/26/2024 [facility]:[id number] Patient Age/Sex Location Account Attending Physician FELIPA LIMA/F EN [id number] Roderick Friend, DO Signed (signature on file) Dr. Blanche House MD 01/04/25 1317 Normal [facility] Comment on above: Performed By: #### P SUIV #### [facility] [address] [place], [place], [id number] /Rolly 12-24-2024 MR/MARY [facility] Medical Records Department [address] [place] [address] PAT - Anesthesia 12/24/24 1524 MR#: [id number] Acct: [id number] Name: FELIPA LIMA SHREYAS Rep #: [id number] : 1955 69 From: Sylvester Vasquez MD PCP: Dr. Kandace Katz MD Status:PRE [facility] Y Race: C Location: EN Pre-Assessment Diagnosis/Proposed Procedure Planned Operative Procedure(s): EGD Anesthesia History Anesthesia History - uniformer: Anesthesia History - uniformer Hx Hospitalization No 12/24/24 14:47 Any Problems [...] take am of surgery PONV PONV - uniformer: PONV - uniformer Female Yes 12/24/24 14:47 HX of Motion [...] 09/25/24 10:39 Respiratory Assessment Respiratory Assessment - uniformer: Respiratory Tract Infection Hx - uniformer Hx Respiratory Tract Infection No 12/24/24 14:47 STOP Sleep Apnea STOP Sleep Apnea - uniformer: STOP Sleep Apnea - uniformer Hx Hypertension No 12/24/24 14:47 Hx Sleep [...] Tobacco Use History Tobacco Use History - uniformer: Tobacco Use History - uniformer Tobacco Use Smoking Status Former smoker 12/24/24 14:47 Hx Tobacco Use No 12/24/24 14:47 Years Smoking Packs Smoked per Day Smoking Cessation Date was No - quit smoking greater 12/24/24 14:47 within the last 15 years than 15 years ago Hx Smoking Cessation Date 11/25/05 12/24/24 14:47 Hx Smoking Cessation No 12/24/24 14:47 Counseling Hematologic Medial History Hematologic Hx - uniformer: Hematologic Medical Hx - manager storage Hx of Blood Transfusion Yes 12/24/24 14:47 [...] confused, unrespo /Reproduction History /Reproductive History - uniformer: /Reproductive Hx- uniformer Hx Now Gestational Age (in weeks): EDC: [...] 07/16/24 Unknow n History subcutaneous pen injector (Skyrizi) acetaminophen 500 mg capsule 500 mg PO Q6H PRN pain 07/17/24 History nitrofurantoin (more content not included)... Normal [facility] Quantiferon TB-Gold+on 11-15 QFT MITOGEN KAYLA 2.94 IU/mL Normal . [facility] Comment on above: Performed By: #### L 3400.8000 ####[facility] [address] [place], [place], [id number] QFT NIL VALUE 0.04 IU/mL Normal . [facility] Comment on above: Performed By: #### L 3400.8000 ####[facility] [address] [place], [place], [phone] QFT TB GOLD+ Comment Normal . [facility] Comment on above: Result Comment: Eber tiFERON-TB [...] the test. Performed By: #### L 3400.8000 ####[facility] [address] [place], [place], [address] QFT TB POS CRIT Negative Normal Negative [facility] Comment on above: Result Comment: No r [...] interferon gamma. Chemiluminescence immunoassay methodology Performed at: [facility] [id number] Telehealth Nurse Educator: Migule Anaya PhD, Phone: [phone] Performed By: #### L 3400.8000 ####[facility] [address] [place], [place], [id number] QFT TB1+ AG KAYLA 0.04 IU/mL Normal . [facility] Comment on above: Performed By: #### L 3400.8000 ####[facility] [address] [place], [place], [address] QFT TB2+ AG KAYLA 0.05 IU/mL Normal . [facility] Comment on above: Performed By: #### L 3400.8000 ####[facility] [address] [place], [address] Gastroenterology Visit Repor ton 11-13-2024 Gastroenterology Visit Report [facility] Gastroenterology [address] [place] [address] OFFICE VISIT Date of Service: 11/13/24 MR#: [id number] Acct: [id number] Name: FELIPA LIMA SHREYAS Rep #: [id number] : 1955 Provider: Dr. Eric love MD Age/Sex: 68/F Location: [facility] Status: Signed Intake Vital Signs 09/25/24 10:39 [...] gained 9 pounds in last 1 month. [facility] Head: nor (more content not included)... Normal [facility] Qualitative QuantiFERON-TB g old in tube testOrdered By: Maxx Arevalo on 11-13-2024 M. tuberculosis tuberculin stim IFN-g Ql (Bld) 0.04 IU/mL . [facility] CNOVon 10-16-2024 CNOV Office Visit (URCANT ) -- FELIPA LIMA ([id number]) 1955 F Date Time Provider Department 10/16/24 1:00 PM FAITH PADRON During your visit today, we recorded the following information about you: Faith Padron APRN.HELPER DRIVER 10/16/2024 1:38 PM Signed [facility] ESTABLISHED PATIENT OFFICE VISIT HISTORY OF PRESENT [...] Date Chronic kidney disease, stage IV (severe) ([facility]) Dr. Nickerson Kidney stones PONV (postoperative nausea [...] thyroid (benign) PT [facility]ST[facility]EC[facility] HISTORY Problem Relation Age of [...] 2 - (more content not included)... Normal Gastroenterology Visit Repor ton 09-25-2024 Gastroenterology Visit Report [facility] Gastroenterology [address] [place] [address] OFFICE VISIT Date of Service: 09/25/24 MR#: [id number] Acct: [id number] Name: FELIPA LIMA SHREYAS Rep #: [id number] : 1955 Provider: MIKEL bar Age/Sex: 68/F Location: [facility] Status: Signed Intake Vital Signs 07/17/24 11:11 09/05/24 05:50 09/25/24 10:39 Height 5 ft 3 in 5 ft 3 in 5 ft 3 in Weight: 233 lb 2 oz BMI 41.3 BP 127/83 H Respiration 18 Pulse 90 Pulse Oximetry (%) 94 Oxygen Delivery Method room air Intake Visit Reasons: Test Result Chief Complaint: follow-up Admin Prog Coord Required: No Is patient in pain?: Yes [...] Nurse's Note: Upper right abdominal discomfort 09/03. PFSH Medical History Thyroid disease Arthritis Bladder [...] HPI HPI Chief Complaint: follow-up Details: FELIPA BERNHART, is a 68 F who presents to the office today for EGD: 09/05/2024 Sandoval's 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 Biopsied. - Medium-sized hiatal hernia. - Enlarged gastric folds. - A single duodenal polyp. Clip was placed. 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 Biopsied. COLON 09/05/2024 TAs - RECALL colon [...] ROS Const (more content not included)... Normal [facility] L3410.9998on 09-18-2024 [facility] Misc. COMMENT Normal . [facility] Comment on above: Order Comment: [id number] 9ELF TEST TIGER RF Result Comment: Test Ordered: [id number] Enhanced Liver Fibrosis (ELF) ELF(TM) Score 11.29 [H ] BN Reference Range: <9.80 ELF(TM) Score Interpretation: Risk [...] J Hepatol. 2020 Dec;73(1):26-39. Performed at: - [facility] [id number] Telehealth Nurse Educator: Génesis Romero MD, Phone: [phone] Performed at: [facility] [id number] Telehealth Nurse Educator: Miguel Anaya PhD, Phone: [phone] Performed By: #### L 3410.9998 ####[facility] [address] [facility] [place], [address] 12 Lead EKGon 09-05-2024 12 Lead EKG [facility] Cardiovascular Services [address] [place] [id number] 12 Lead EKG 09/05/24 0828 MR#: [id number] Acct: [id number] Name: FELIPA LIMA SHREYAS Rep #: [id number] : 1955 68 From: Sandro Bermudez MD Attending Dr: Roderick Tang, DO Status: DEP KELECHI C Ordering Dr: Aman Ponce MD Date: [...] ECG No previous ECGs available Confirmed by LARA SAHU, SANDRO ([id number]), newspaper or periodical editor JILLIAN REYES ([id number]) on 09/10/2024 1:46:13 PM Referred By: Kandace Katz Confirmed By: SANDRO BERMUDEZ MD 09/10/24 1346 Date Sandro Bermudez MD CC: Dr. Aman Ponce MD; Dr. Kandace Katz MD; Roderick Tang DO Signed Normal [facility] Colonoscopy Reporton 025 Colonoscopy Report [facility] Medical Records Department [address] [place] [address] Colonoscopy Report MR#: [id number] Acct: [id number] Name: FELIPA LIMA SHREYAS Rep #: [id number] : 1955 68 From: Roderick Tang DO PCP: Dr. Kandace Katz MD Status:[facility] Patient Name: Felipa Lima Procedure Date: 09/05/2024 [...] for surveillance. Procedure Code(s): --- Professional --- 28093, Colonoscopy, flexible; with removal of tumor(s), polyp(s), or other lesion(s) by snare technique 69767, 59, Colonoscopy, flexible; with biopsy, single or multiple CPT copyright 2021 [employer]. All rights reserved. The codes documented in this report are preliminary and upon cnc operator machinist review may be revised to meet current compliance requirements. Roderick Tang, (more content not included)... Normal [facility] EGD Reporton 09-05-2024 EGD Report [facility] Medical Records Department [address] [place] [address] EGD Report MR#: [id number] Acct: [id number] Name: FELIPA LIMA SHREYAS Rep #: [id number] : 1955 68 From: Roderick Tang DO PCP: Dr. Kandace Katz MD Status:[facility] Patient Name: Felipa Lima Procedure Date: 09/05/2024 [...] one hemostatic clip was successfully placed. 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 There was no bleeding at the end of the procedure. Biopsies were taken with a cold forceps for histology. Verification of patient identification for the specimen was done. Estimated blood loss was minimal. Impression: - Z-line irregular, 39 cm from the incisors. Biopsied. - Medium-sized hiatal hernia. - Enlarged gastric folds. - A single duodenal polyp. Clip was placed. 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 Biopsied. Recommendation: - Discharge patient to home. - Resume previous diet. - Continue present medications. - Await pathology results. - Repeat upper endoscopy for surveillance based on pathology results. Procedure Code(s): --- Professional --- 35446, 59, Esophagogastroduodenoscopy , flexible, transoral; with control of bleeding, any method 64755, 51, Esophagogastroduodenoscopy , flexible, transoral; with biopsy, single or multiple CPT copyright 2021 [employer]. All rights reserved. The codes documented in this report are preliminary and upon cnc operator machinist review may be revised to meet current compliance requirements. Roderick Tang DO 09/05/2024 7:46:11 AM This report has been signed electronically. Number of Addenda: 0 Note Initiated On: 09/05/2024 6:14 AM 09/05/24 0746 Date Roderick Tang DO Cosigner Signature: Date (if indicated) CC: Dr. Kandace Kazt MD; Roderick Tang DO Date Dictated: 09/05/24613 Date Transcribed: Global Sales Executive: ALEXIS Signed [facility] MR/POSTOP.[facility] 09-05-2024 MR/POSTOP.[facility] Medical Records Department [address] [place] [address] Anesthesia Postop Eval I 09/05/24 0753 MR#: [id number] Acct: [id number] Name: FELIPA LIMA SHREYAS Rep #: [id number] : 1955 68 From: Jefry Alford PCP: Dr. Kandace Katz MD Status:REG SDC Y Race: C Location: [place] [address] Anesthesia: Postop Eval I Current Vital Signs [...] Jefry Mendiola Signature: Date CC: Signed Normal [facility] MR/EERZEFFU8rc 09-05-2024 MR/POSTOPAN2 [facility] Medical Records Department [address] [place] [address] Anesthesia Postop Eval II 09/05/24 1055 MR#: [id number] Acct: [id number] Name: FELIPA LIMA SHREYAS Rep #: [id number] : 1955 68 From: Aman Ponce MD PCP: Dr. Kandace Katz MD Status:[facility] Y Race: C Location: [place] Anesthesia Postop [...] Aman Mendiola Signature: Date CC: Signed Normal [facility] Surgery Specimen Level Juan 09-05-2024 Surgery Specimen Level IV Patient Age/Sex Location Account Attending Physician FELIPA LMIA 68/F EN [id number] Roderick Tang DO Specimen: [id number] Received: 09/05/24 Status: INDER Arboleda Num: [id number] Spec Type: COLON BX Subm Dr: DO JAZZMINE MccrayER OPERATION: Colonoscopy, EGD, hemostasis clip PRE-OP DIAGNOSIS: [...] Account Attending Physician FELIPA LIMA 68/F EN [id number] Roderick Tang DO tissue that measures 0.4 x 0.4 x [...] is totally submitted in one cassette. 09/05/2024 [facility]:[id number] Patient Age/Sex Location Account Attending Physician FELIPA LIMA 68/F EN [id number] Roderick Tang DO Signed (signature on file) Dr. Blanche House MD 09/10/24 6339 Normal [facility] Comment on above: Performed By: #### P ANIBAL ####[facility] [address] [place], [address] Santos 09-04-2024 GLADYS Office Visit (URCANT ) -- FELIPA LIMA ([id number]) 1955 F Date Time Provider Department 09/04/24 11:30 AM PORSHA TRAMMELL During your visit today, we [...] Gastroesophageal Reflux Disease Vicki (Acute Kidney Injury) ([facility]) Morbidly Obese (Hcc) Calculus of Ureter Obesity, Class III, BMI >= 40 Stage 5 Chronic Kidney Disease (Hcc) Sensory Urge Incontinence Preop Testing Acute Cystitis With Hematuria Calculus of Kidney HISTORIES PAST MEDICAL HISTORY Diagnosis Date Chronic kidney disease, stage IV (severe) ([facility]) Dr. Nickerson Kidney stones PONV (postoperative nausea [...] thyroid (benign) PT [facility] HISTORY Problem Relation Age of [...] reprogramming. In (more content not included)... Normal URINE CREATININE AND PROTEIN RATIOon 08-13-2024 URINE CREATININE AND PROTEIN RATIO Normal [facility] Comment on above: Result Comment: SEE SCANNED REPORT Performed By: #### 2 34200 #### [facility],[address] [place] [address] PTH, INTACT [CCL]on 08-08-19 25 PTH, Intact 88 pg/mL High 15-65 [facility] Comment on above: Result Comment: [facility] [address] [place] [address] Antonio Chatman III, M.D. [id number] Performed By: #### 2 32647 #### [facility],[address] [place] [address] URIC ACIDon 08-08-2024 URIC ACID Normal [facility] Comment on above: Result Comment: SEE SCANNED REPORT Performed By: #### 2 74147 #### [facility],[address] [place] [address] BMP with eGFRon 08-06-2024 AGE 68 years Normal [facility] Comment on above: Performed By: #### 2 99075 #### [facility],[address] [place] [address] Anion gap [Moles/Vol] 18 mmol/L Normal 10 - 20 [facility] Comment on above: Performed By: #### 2 84628 #### [facility],[address] [place] [address] BMP with eGFR Normal [facility] Comment on above: Result Comment: BASI C METABOLIC PANEL Performed By: #### 2 60863 #### [facility],[address] [place] [address] Calcium [Mass/Vol] 8.5 mg/dL Normal 8.5 - 10.1 [facility] Comment on above: Performed By: #### 2 03830 #### [facility],[address] [place] [address] Chloride [Moles/Vol] 106 mmol/L Normal 98 - 107 [facility] Comment on above: Performed By: #### 2 98939 #### [facility],[address] [place] [address] CO2 [Moles/Vol] 23.0 mmol/L Normal 21.0 - 32.0 [facility] Comment on above: Performed By: #### 2 06731 #### [facility],[address] [place] [address] Creatinine [Mass/Vol] 1.59 mg/dL High 0.55 - 1.02 [facility] Comment on above: Performed By: #### 2 17830 #### [facility],[address] [place] [address]209 eGFR 32 ML/MINUTE Low 60 - 999 [facility] Comment on above: Performed By: #### 2 29284 #### [facility],[address] [place] [address]476 eGFR(AA) 39 ML/MINUTE Low 60 - 999 [facility] Comment on above: Result Comment: ACCO RDING TO THE NATIONAL KIDNEY DISEASE EDUCATION PROGRAM(NKDE), A NORMAL eGFR IS A VALUE GREATER THAN OR EQUAL TO 60 ML/MIN/1.73 SQ METERS. CHRONIC KIDNEY DISEASE: <60mL/MIN/1.73 SQ METERS KIDNEY FAILURE: <15mL/MIN/1.73 SQ METERS THIS TEST SHOULD ONLY BE USED FOR PATIENTS 18 YEARS OF AGE AND OLDER. Performed By: #### 2 37408 #### [facility],[address] [place] [address] Glucose [Mass/Vol] 93 mg/dL Normal 74 - 106 [facility] Comment on above: Performed By: #### 2 26334 #### [place] [address] Potassium [Moles/Vol] 3.6 mmol/L Normal 3.5 - 5.1 [facility] Comment on above: Performed By: #### 2 36322 #### [place] [id number] Sodium [Moles/Vol] 143 mmol/L Normal 136 - 145 [facility] Comment on above: Performed By: #### 2 93771 #### [place] [address] Urea nitrogen [Mass/Vol] 42 mg/dL High 7 - 18 [facility] Comment on above: Performed By: #### 2 79433 #### [address] [address] CBC + DIFFon 08-06-2024 Baso # 0.03 x10EE3/UL Normal 0.00 - 0.10 [facility] Comment on above: Performed By: #### 2 73709 #### [address] [address] Basophils/100 WBC (Bld) 0.5 % Normal 0.0 - 2.0 [facility] Comment on above: Performed By: #### 2 55176 #### [place] [id number] CBC + DIFF Normal [facility] Comment on above: Result Comment: CBC- COMPLETE BLOOD COUNT Performed By: #### 2 35706 #### [facility],[address] [place] [address] EO # 0.18 x10EE3/UL Normal 0.00 - 0.50 [facility] Comment on above: Performed By: #### 2 33656 #### [facility],[address] [place] [address] Eosinophils/100 WBC (Bld) 3.0 % Normal 0.0 - 7.0 [facility] Comment on above: Performed By: #### 2 63446 #### [facility],[address] [place] [address] Erythrocyte distribution width (RBC) [Ratio] 12.9 % Normal 12.0 - 15.6 [facility] Comment on above: Performed By: #### 2 78016 #### [facility],[address] [place] [address] Hematocrit (Bld) [Volume fraction] 39.7 % Normal 34.0 - 46.0 [facility] Comment on above: Performed By: #### 2 14471 #### [facility],[address] [place] [address] Hemoglobin (Bld) [Mass/Vol] 13.3 g/dL Normal 12.0 - 16.0 [facility] Comment on above: Performed By: #### 2 97501 #### [facility],[address] [place] [address] Lymph # 1.15 x10EE3/UL Normal 0.80 - 2.80 [facility] Comment on above: Performed By: #### 2 92878 #### [facility],[address] [place], [place] [address] Lymphocytes/100 WBC (Bld) 18.7 % Low 20.0 - 45.0 [facility] Comment on above: Performed By: #### 2 30496 #### [facility],[address] [place] [address] MANUAL DIFF N/A Normal [facility] Comment on above: Performed By: #### 2 87314 #### [facility],[address] [place] [address] MCH (RBC) [Entitic mass] 31 pg Normal 27 - 33 [facility] Comment on above: Performed By: #### 2 89901 #### [facility],[address] [place] [address] MCHC 34 X10 3 Normal 32 - 36 [facility] Comment on above: Performed By: #### 2 59776 #### [facility],[address] [place] [address] MCV (RBC) [Entitic vol] 93 fL Normal 80 - 99 [facility] Comment on above: Performed By: #### 2 33961 #### [facility],[address] [place] [address] [place] # 0.53 x10EE3/UL Normal 0.20 - 1.00 [facility] Comment on above: Performed By: #### 2 51385 #### [facility],[address] [place] [address] MONOS % 8.6 % Normal 0.0 - 10.0 [facility] Comment on above: Performed By: #### 2 94557 #### [facility],[address] [place] [address] Morphology Yuri (Bld) [Interp] N/A Normal [facility] Comment on above: Performed By: #### 2 52503 #### [facility],[address] [place] [address] Neut # 4.26 x10EE3/UL Normal 1.50 - 7.10 [facility] Comment on above: Performed By: #### 2 26291 #### [facility],[address] [place] [address] Neutrophils/100 WBC (Bld) 69.3 % Normal 46.0 - 76.0 [facility] Comment on above: Performed By: #### 2 67935 #### [facility],[address] [place] [address] PLATELET 221 x10EE3/UL Normal 150 - 450 [facility] Comment on above: Performed By: #### 2 60961 #### [facility],[address] [place] [address] Platelet mean volume (Bld) [Entitic vol] 8.6 fL Normal 6.6 - 10.5 [facility] Comment on above: Result Comment: AUTO MATED DIFFERENTIAL Performed By: #### 2 76245 #### [facility],[address] [place] [address] RBC 4.26 x 10EE6/UL Normal 4.10 - 5.30 [facility] Comment on above: Performed By: #### 2 18216 #### [facility],[address] [place] [address] WBC 6.2 x 10EE3/UL Normal 4.5 - 10.8 [facility] Comment on above: Performed By: #### 2 48722 #### [facility],[address] [place] [address] 11-LQ-Kixvuvp DOrdered By: Star Rodríguez on 07-30-2024 Vitamin D 25-Hydroxy 18.2 ng/mL [facility] Comment on above: Vitamin D 25([place]) Sta tus Range Deficiency <20 ng/mL (50nmol/L) Insufficiency 20 - 30 ng/mL (50 - 75 nmol/L) Sufficiency 30 - 100 ng/mL (75 - 250 nmol/L) Toxicity >100 ng/mL (>250 nmol/L) Calcium,Totalon 07-30-2024 CA,Total 9.5 mg/dL Normal 8.5-10.1 [facility] Comment on above: Performed By: #### L 509.1000, L506.1000, L501.2200 #### [facility] [address] [place], [place], [address] Intact parathyroid hormone ( iPTH) measurementOrdered By: Jose Rodríguez on 07-30-2024 Parathyroid Hormone (Intact) 174.4 pg/mL High 18.4-80.1 [facility] PTHINon 07-30-2024 PTH 174.4 pg/mL High 18.4-80.1 [facility] Comment on above: Performed By: #### L 509.1000, L506.1000, L501.0 #### [facility] [address] [place], [address] Serum or plasma calcium oli urement (mass/volume)Ordered By: Jose Rodríguez on 07-30-2024 Calcium [Mass/Vol] 9.5 mg/dL 8.5-10.1 [facility] Special Stain Group IIon Special Stain Group II Patient Age/Sex Location Account Attending Physician FELPIA LIMA 68/F PAVLAB [id number] Dr. Jose Rodríguez MD Specimen: [id number] Received: 07/30/24-1502 Status: INDER Arboleda Num: [id number] Spec Type: Fluid Subm Dr: Dr. Jose [...] fine needle aspiration (smears): Non diagnostic specimen, [place] Category I. See comment. SJ.mr 08/01/2024 COMMENT A. Rare follicular cells and scant amount of colloid is noted. B. The specimen consists of rare follicular cells and scant amount of diluted colloid. The specimen is non-diagnostic due to lack of adequate number of follicular cells. The [place] System for thyroid diagnostic categorization was used [...] Mr 07/31/2024 TC: Can not code CPT: 81770k8,92121 Signed (signature on file) Dr. Miles Wang MD 08/01/24 1201 Normal [facility] Comment on above: Performed By: #### P SSII #### [facility] [address] [place], [place], [address] Surgery Visit Reporton 07-30 Surgery Visit Report [facility] [address] [place], [place] [address] OFFICE VISIT Date of Service: 07/30/24 MR#: [id number] Acct: [id number] Name: FELIPA LIMA SHREYAS Rep #: [id number] : 1955 Provider: Dr. Jose campbell MD Age/Sex: 68/F Location: [facility] Status: Signed Intake Vital Signs 11/04/21 09:55 [...] subcut Q12W 07/16/24 History subcutaneous pen injector (Skyrizi) acetaminophen [...] fatigue, co (more content not included)... Normal [facility] Vitamin D,25 Hydroxyon 07-30 Vitamin D 25-OH 18.2 ng/mL Normal [facility] Comment on above: Result Comment: Chio min D 25(OH) Status Range Deficiency <20 ng/mL (50nmol/L) Insufficiency 20 - 30 ng/mL (50 - 75 nmol/L) Sufficiency 30 - 100 ng/mL (75 - 250 nmol/L) Toxicity >100 ng/mL (>250 nmol/L) Performed By: #### L 509.1000, L506.1000, L501.2200 #### [facility] [address] [place], [address] Hepatitis A AB, Totalon 06-28 HEPATITIS A,TOT Negative Normal Negative [facility] Comment on above: Result Comment: Comm ent: The HAV total antibody assay detects both IgG and IgM but does not differentiate between them. A negative result suggests susceptibility to infection. A positive result could be due to vaccination, previously resolved infection or active infection. Testing for HAV IgM should be performed if active HAV infection is suspected. [facility] offers profiles that will automatically reflex positive HAV total antibody results to IgM (e.g., panel #[id number] HAV Antibody w/ Rfx). Performed at: [address] [id number] Telehealth Nurse Educator: Miguel Anaya PhD, Phone: [phone] Performed By: #### L 100.0100, L3890.6200, L500.4050, L3100.0300, L3100.0460, L3890.6100, L3890.6300 ####[facility] [address] [place], [place], [address] Hepatitis B Core Ab Totalon 07-19-2024 HEP B CORE,TOT Negative Normal Negative [facility] Comment on above: Performed By: #### L 100.0100, L3890.6200, L500.4050, L3100.0300, L3100.0460, L3890.6100, L3890.6300 ####[facility] [address] [place], [place], [address] L3410.9999on 07-19-2024 [facility] Misc. COMMENT Normal . [facility] Comment on above: Order Comment: [id number] 9Liver Fibrosis SERUM RED RF Result Comment: Perf ormed at: [address] [id number] Telehealth Nurse Educator: Miguel Anaya PhD, Phone: [phone] Performed By: #### L 3410.9999 ####[facility] [address] [place], [place], [address] Absolute lymphocyte countOrd ered By: Babs Bernard on 07-17-2024 Lymphocytes Auto (Unsp spec) [#/Vol] 0.81 10*3/uL Low 0.83-4.51 [facility] Absolute neutrophil countOrd ered By: Babs Marco Antonio on 07-17-2024 Neutrophils (Bld) [#/Vol] 3.9 10*3/uL 2.0-7.7 [facility] Albumin to globulin ratioOrd ered By: Babs Bernard on 07-17-2024 Albumin/Globulin [Mass ratio] 0.9 {ratio} 0.9-2.4 [facility] Automated lymphocyte count a s percentage of total leukocytesOrdered By: Babs Bernard on 07-17-2024 Lymphocytes/100 WBC Auto (Unsp spec) 15.3 % Low 19-41 [facility] Basophil percentageOrdered B y: Babs Bernard on 07-17-2024 Basophils/100 WBC (Bld) 0.4 % 0-1 [facility] Bilirubin, totalOrdered By: Babs Bernard on 07-17-2024 Bilirubin [Mass/Vol] 0.40 mg/dL 0.20-1.00 [facility] Comment on above: For patients on eltr ombopag therapy, use of Dimension [place] TBIL is not recommended. Blood urea nitrogen (BUN)/cr eatinine ratioOrdered By: Babs Bernard on 07-17-2024 Urea nitrogen/Creatinine [Mass ratio] 21.2 mg/mg High 10-20 [facility] CBC W/Diff, Automatedon 06-28 Absolute Lymph 0.81 X10 3/uL Low 0.83-4.51 [facility] Comment on above: Performed By: #### L 100.0100, L3890.6200, L500.4050, L3100.0300, L3100.0460, L3890.6100, L3890.6300 ####[facility] [address] [place], [address] Absolute Neut 3.9 X10 3/uL Normal 2.0-7.7 [facility] Comment on above: Performed By: #### L 100.0100, L3890.6200, L500.4050, L3100.0300, L3100.0460, L3890.6100, L3890.6300 ####[facility] [address] [place], [address] Basophils/100 WBC (Bld) 0.4 % Normal 0-1 [facility] Comment on above: Performed By: #### L 100.0100, L3890.6200, L500.4050, L3100.0300, L3100.0460, L3890.6100, L3890.6300 ####[facility] [address] [place], [address] Eosinophils/100 WBC (Bld) 2.8 % Normal 0-5 [facility] Comment on above: Performed By: #### L 100.0100, L3890.6200, L500.4050, L3100.0300, L3100.0460, L3890.6100, L3890.6300 ####[facility] [address] [place], [address] Erythrocyte distribution width (RBC) [Ratio] 12.5 % Normal 11.6-14.6 [facility] Comment on above: Performed By: #### L 100.0100, L3890.6200, L500.4050, L3100.0300, L3100.0460, L3890.6100, L3890.6300 ####[facility] [address] [place], [address] Hematocrit (Bld) [Volume fraction] 41.2 % Normal 37-47 [facility] Comment on above: Performed By: #### L 100.0100, L3890.6200, L500.4050, L3100.0300, L3100.0460, L3890.6100, L3890.6300 ####[facility] [address] [place], [address] Hemoglobin (Bld) [Mass/Vol] 12.9 g/dL Normal 12.0-15.0 [facility] Comment on above: Performed By: #### L 100.0100, L3890.6200, L500.4050, L3100.0300, L3100.0460, L3890.6100, L3890.6300 ####[facility] [address] [place], [address] IG% 0.200 Normal 0.0-0.9 [facility] Comment on above: Result Comment: IG% - Immature Granulocytes (promyelocytes, myelocytes and metamyelocytes) > 1% indicates that a LEFT SHIFT is Present. Performed By: #### L 100.0100, L3890.6200, L500.4050, L3100.0300, L3100.0460, L3890.6100, L3890.6300 ####[facility] [address] [place], [address] Lymphocytes/100 WBC (Bld) 15.3 % Low 19-41 [facility] Comment on above: Performed By: #### L 100.0100, L3890.6200, L500.4050, L3100.0300, L3100.0460, L3890.6100, L3890.6300 ####[facility] [address] [place], [address] MCH (RBC) [Entitic mass] 30.0 pg Normal 27.0-32.0 [facility] Comment on above: Performed By: #### L 100.0100, L3890.6200, L500.4050, L3100.0300, L3100.0460, L3890.6100, L3890.6300 ####[facility] [address] [place], [address] MCHC (RBC) [Mass/Vol] 31.3 g/dL Low 32-36 [facility] Comment on above: Performed By: #### L 100.0100, L3890.6200, L500.4050, L3100.0300, L3100.0460, L3890.6100, L3890.6300 ####[facility] [address] [place], [address] MCV (RBC) [Entitic vol] 95.8 fL Normal 81-99 [facility] Comment on above: Performed By: #### L 100.0100, L3890.6200, L500.4050, L3100.0300, L3100.0460, L3890.6100, L3890.6300 ####[facility] [address] [place], [address] Monocytes/100 WBC (Bld) 7.5 % Normal 0-10 [facility] Comment on above: Performed By: #### L 100.0100, L3890.6200, L500.4050, L3100.0300, L3100.0460, L3890.6100, L3890.6300 ####[facility] [address] [place], [address] Neutrophils/100 WBC (Bld) 73.8 % High 47-70 [facility] Comment on above: Performed By: #### L 100.0100, L3890.6200, L500.4050, L3100.0300, L3100.0460, L3890.6100, L3890.6300 ####[facility] [address] [place], [address] Nucleated RBC (Bld) [#/Vol] 0 10*3/uL Normal 0-5 [facility] Comment on above: Performed By: #### L 100.0100, L3890.6200, L500.4050, L3100.0300, L3100.0460, L3890.6100, L3890.6300 ####[facility] [address] [place], [address] Platelet mean volume (Bld) [Entitic vol] 10.7 fL Normal 6.2-12.0 [facility] Comment on above: Performed By: #### L 100.0100, L3890.6200, L500.4050, L3100.0300, L3100.0460, L3890.6100, L3890.6300 ####[facility] [address] [place], [address] Platelets (Bld) [#/Vol] 195 10*3/uL Normal 150-450 [facility] Comment on above: Performed By: #### L 100.0100, L3890.6200, L500.4050, L3100.0300, L3100.0460, L3890.6100, L3890.6300 ####[facility] [address] [place], [address] RBC (Bld) [#/Vol] 4.30 10*6/uL Normal 4.2-5.4 [facility] Comment on above: Performed By: #### L 100.0100, L3890.6200, L500.4050, L3100.0300, L3100.0460, L3890.6100, L3890.6300 ####[facility] [address] [place], [address] RDW SD 44.0 fl High 35.1-43.9 [facility] Comment on above: Performed By: #### L 100.0100, L3890.6200, L500.4050, L3100.0300, L3100.0460, L3890.6100, L3890.6300 ####[facility] [address] [place], [address] WBC (Bld) [#/Vol] 5.3 10*3/uL Normal 4.4-11.0 [facility] Comment on above: Performed By: #### L 100.0100, L3890.6200, L500.4050, L3100.0300, L3100.0460, L3890.6100, L3890.6300 ####[facility] [address] [place], [address] Carbon dioxide measurementOr dered By: Babs Bernard on 07-17-2024 CO2 [Moles/Vol] 26.0 mmol/L 21.0-32.0 [facility] Chloride measurementOrdered By: Babs Bernard on 07-17-2024 Chloride [Moles/Vol] 108 mmol/L High 98-107 [facility] Comprehensive Metabolic Prof ilon 07-17-2024 Albumin [Mass/Vol] 3.5 g/dL Normal 3.2-5.0 [facility] Comment on above: Performed By: #### L 100.0100, L3890.6200, L500.4050, L3100.0300, L3100.0460, L3890.6100, L3890.6300 ####[facility] [address] [place], [address] Albumin/Globulin [Mass ratio] 0.9 {ratio} Normal 0.9-2.4 [facility] Comment on above: Performed By: #### L 100.0100, L3890.6200, L500.4050, L3100.0300, L3100.0460, L3890.6100, L3890.6300 ####[facility] [address] [place], [address] ALK P 74 U/L Normal 45-117 [facility] Comment on above: Performed By: #### L 100.0100, L3890.6200, L500.4050, L3100.0300, L3100.0460, L3890.6100, L3890.6300 ####[facility] [address] [place], [address] ALT [Catalytic activity/Vol] 16 U/L Normal 13-56 [facility] Comment on above: Performed By: #### L 100.0100, L3890.6200, L500.4050, L3100.0300, L3100.0460, L3890.6100, L3890.6300 ####[facility] [address] [place], [address] AST [Catalytic activity/Vol] 10 U/L Low 15-37 [facility] Comment on above: Performed By: #### L 100.0100, L3890.6200, L500.4050, L3100.0300, L3100.0460, L3890.6100, L3890.6300 ####[facility] [address] [place], [address] Bilirubin [Mass/Vol] 0.40 mg/dL Normal 0.20-1.00 [facility] Comment on above: Result Comment: For patients on eltrombopag therapy, use of Dimension [place] TBIL is not recommended. Performed By: #### L 100.0100, L3890.6200, L500.4050, L3100.0300, L3100.0460, L3890.6100, L3890.6300 ####[facility] [address] [place], [address] BUN/CRE 21.2 RATIO High 10-20 [facility] Comment on above: Performed By: #### L 100.0100, L3890.6200, L500.4050, L3100.0300, L3100.0460, L3890.6100, L3890.6300 ####[facility] [address] [place], [address] CA,Total 9.0 mg/dL Normal 8.5-10.1 [facility] Comment on above: Performed By: #### L 100.0100, L3890.6200, L500.4050, L3100.0300, L3100.0460, L3890.6100, L3890.6300 ####[facility] [address] [place], [address] Chloride [Moles/Vol] 108 mmol/L High 98-107 [facility] Comment on above: Performed By: #### L 100.0100, L3890.6200, L500.4050, L3100.0300, L3100.0460, L3890.6100, L3890.6300 ####[facility] [address] [place], [address] CO2 [Moles/Vol] 26.0 mmol/L Normal 21.0-32.0 [facility] Comment on above: Performed By: #### L 100.0100, L3890.6200, L500.4050, L3100.0300, L3100.0460, L3890.6100, L3890.6300 ####[facility] [address] [place], [address] Creatinine [Mass/Vol] 1.60 mg/dL High 0.55-1.02 [facility] Comment on above: Result Comment: The validity of the calculated GFR GFRAA in patients over 70 years has not been determined. Clinical correlation is essential. Performed By: #### L 100.0100, L3890.6200, L500.4050, L3100.0300, L3100.0460, L3890.6100, L3890.6300 ####[facility] [address] [place], [address] EST GFR - AA 41 mL/min Low >60 [facility] Comment on above: Result Comment: Afri can Surinamese GFR Calc Performed By: #### L 100.0100, L3890.6200, L500.4050, L3100.0300, L3100.0460, L3890.6100, L3890.6300 ####[facility] [address] [place], [address] GAP 6 Normal 5-15 [facility] Comment on above: Performed By: #### L 100.0100, L3890.6200, L500.4050, L3100.0300, L3100.0460, L3890.6100, L3890.6300 ####[facility] [address] [place], [address] GFR/1.73 sq M.predicted among non-blacks MDRD (S/P/Bld) [Vol rate/Area] 34 mL/min/{1.73_m2} Low >60 [facility] Comment on above: Result Comment: Non- GFR Calc Performed By: #### L 100.0100, L3890.6200, L500.4050, L3100.0300, L3100.0460, L3890.6100, L3890.6300 ####[facility] [address] [place], [address] Globulin (S) [Mass/Vol] 3.8 g/dL Normal 2.2-4.2 [facility] Comment on above: Performed By: #### L 100.0100, L3890.6200, L500.4050, L3100.0300, L3100.0460, L3890.6100, L3890.6300 ####[facility] [address] [place], [address] Glucose [Mass/Vol] 112 mg/dL High 74-106 [facility] Comment on above: Result Comment: Fast ing Glucose result from 100 to 125 mg/dL suggests IMPAIRED HOMEOSTASIS per A.D.A. criteria. Performed By: #### L 100.0100, L3890.6200, L500.4050, L3100.0300, L3100.0460, L3890.6100, L3890.6300 ####[facility] [address] [place], [address] Potassium [Moles/Vol] 4.1 mmol/L Normal 3.5-5.1 [facility] Comment on above: Performed By: #### L 100.0100, L3890.6200, L500.4050, L3100.0300, L3100.0460, L3890.6100, L3890.6300 ####[facility] [address] [place], [address] Sodium [Moles/Vol] 140 mmol/L Normal 136-145 [facility] Comment on above: Performed By: #### L 100.0100, L3890.6200, L500.4050, L3100.0300, L3100.0460, L3890.6100, L3890.6300 ####[facility] [address] [place], [address] T PROT 7.3 g/dL Normal 6.4-8.2 [facility] Comment on above: Performed By: #### L 100.0100, L3890.6200, L500.4050, L3100.0300, L3100.0460, L3890.6100, L3890.6300 ####[facility] [address] [place], [address] Urea nitrogen [Mass/Vol] 34 mg/dL High 7-18 [facility] Comment on above: Performed By: #### L 100.0100, L3890.6200, L500.4050, L3100.0300, L3100.0460, L3890.6100, L3890.6300 ####[facility] [address] [place], [place], [phone] Eosinophil percentageOrdered By: Babs Bernard on 07-17-2024 Eosinophils/100 WBC (Bld) 2.8 % 0-5 [facility] Erythrocyte distribution wid th ratioOrdered By: Babs Bernard on 07-17-2024 Erythrocyte distribution width (RBC) [Ratio] 12.5 % 11.6-14.6 [facility] Erythrocyte distribution wid th standard deviationOrdered By: Babs Bernard on 07-17-2024 Erythrocyte distribution width (RBC) [Entitic vol] 44.0 fL High 35.1-43.9 [facility] Erythrocyte distribution width (RBC) [Ratio] 44.0 fl High 35.1-43.9 [facility] Estimated glomerular filtrat ion rate (GFR) AmericanOrdered By: Babs Bernard on 07-17-2024 Estimated GFR (MDRD) Amer 41 mL/min Low >60 [facility] Comment on above: GFR Calc Gastroenterology Visit Repor ton 07-17-2024 Gastroenterology Visit Report [facility] [address] [place] [address] OFFICE VISIT Date of Service: 07/17/24 MR#: [id number] Acct: [id number] Name: FELIPA LIMA SHREYAS Rep #: [id number] : 1955 Provider: MIKEL bar Age/Sex: 68/F Location: [facility] [place] Status: Signed Intake Vital Signs 11/04/21 09:55 07/17/24 11:11 Height 5 ft 3 in 5 ft 3 in Weight: 234 lb 6 oz BMI 41.5 BP 129/84 H Respiration 16 Pulse 68 Pulse Oximetry (%) 96 Oxygen Delivery Method room air Intake Visit Reasons: SANDOVAL'S, FATTY LIVER Chief Complaint: Sandoval's, fatty liver, colon screening Admin Prog Coord Required: No Is patient in pain?: No [...] Brother had colon cancer. Has occasional constipation. [facility] Medical History Wears glasses Post-menopausal Alcohol use [...] in 2019 and Sandoval's esophagus diagnosed in 2019. ABD US performed May 2023 revealed hepatomegaly [...] Blood in (more content not included)... Normal [facility] Glomerular filtration rate ( GFR) estimationOrdered By: Babs Bernard on 07-17-2024 Estimated GFR (MDRD) Non-Af Amer 34 mL/min Low >60 [facility] Comment on above: Non- GFR Calc GFR/1.73 sq M.predicted among non-blacks MDRD (S/P/Bld) [Vol rate/Area] 34 mL/min/{1.73_m2} Low >60 [facility] Comment on above: Non- GFR Calc Glucose measurementOrdered B y: Babs Bernard on 07-17-2024 Glucose [Mass/Vol] 112 mg/dL High 74-106 [facility] Comment on above: Fasting Glucose resu lt from 100 to 125 mg/dL suggests IMPAIRED HOMEOSTASIS per A.D.A. criteria. HBV core Ab Ql (S)Ordered By : Babs Bernard on 07-17-2024 Hepatitis B Core Total Antibody Negative Negative [facility] HBV surface IgG Ql (S)Ordere d By: Babs Bernard on 07-17-2024 Hepatitis B Surface Antibody Non-Reactive [facility] Comment on above: Non Reactive: Incons istent with immunity less than <10 mIU/mL Reactive: Consistent with immunity greater than or equal to 10 mIU/mL Hematocrit Auto (Bld) [Volum e fraction]Ordered By: Babs Bernard on 07-17-2024 Hematocrit (Bld) [Volume fraction] 41.2 % 37-47 [facility] Hemoglobin measurementOrdere d By: Babs Bernard on 07-17-2024 Hemoglobin (Bld) [Mass/Vol] 12.9 g/dL 12.0-15.0 [facility] Hepatitis A virus total anti body assayOrdered By: Babs Bernard on 07-17-2024 Hepatitis A Antibody Total Negative Negative [facility] Comment on above: Comment: The HAV tot [...] HAVtotal antibody results to IgM (e.g., panel #[id number] HAVAntibody w/ Rfx).Performed at: [facility] [id number] Director: Miguel Anaya PhD, Phone: [phone] Hepatitis B Surface Antibody on 07-17-2024 HEP B Surf Ab Non-Reactive Normal [facility] Comment on above: Order Comment: Reaso n for Exam: MASLD Result Comment: Non Reactive: Inconsistent with immunity less than <10 mIU/mL Reactive: Consistent with immunity greater than or equal to 10 mIU/mL Performed By: #### L 100.0100, L3890.6200, L500.4050, L3100.0300, L3100.0460, L3890.6100, L3890.6300 ####[facility] [address] [facility] [place], [address] Hepatitis B Surface Antigeno n 07-17-2024 HEP B Surf Ag Non-Reactive Normal Nonreactive [facility] Comment on above: Order Comment: Reaso n for Exam: MASLD Performed By: #### L 100.0100, L3890.6200, L500.4050, L3100.0300, L3100.0460, L3890.6100, L3890.6300 ####[facility] [address] [facility] [place], [address] Hepatitis B surface antigen detectionOrdered By: Babs Bernard on 07-17-2024 Hepatitis B Surface Antigen Non-Reactive Nonreactive [facility] Hepatitis C Antibodyon 07-17 Hepatitis C AB Non-Reactive [facility] Comment on above: Order Comment: Reaso n for Exam: MASLD Result Comment: Non Reactive: < 0.8 Equivocal: >/= 0.8 to < 1.0 Reactive: >/= 1.0 The CDC requires that a reactive/equivocal HCV antibody result be sent out for confirmation. HCV Quant by PCR testing. Performed By: #### L 100.0100, L3890.6200, L500.4050, L3100.0300, L3100.0460, L3890.6100, L3890.6300 ####[facility] [address] [facility] [address] [place], [place], [address] Hepatitis C virus antibody a ssayOrdered By: Babs Bernard on 07-17-2024 Hepatitis C Antibody Non-Reactive Nonreactive [facility] Comment on above: Non Reactive: < 0.8 Equivocal: >/= 0.8 to < 1.0 Reactive: >/= 1.0The CDC requires that a reactive/equivocal HCV antibody result be sent out for confirmation. HCV Quant by PCR testing. Immature granulocytes/100 WB C Auto (Bld)Ordered By: Babs Bernard on 07-17-2024 Immature granulocytes/100 WBC (Bld) 0.200 % 0.0-0.9 [facility] Comment on above: IG% - Immature Granu locytes (promyelocytes, myelocytes and metamyelocytes) > 1% indicates that a LEFT SHIFT is Present. Laboratory - Chemistry and C hemistry - challengeOrdered By: Babs Bernard on 07-17-2024 AST [Catalytic activity/Vol] 10 U/L Low 15-37 [facility] Lymphocytes Auto (Unsp spec) [#/Vol]Ordered By: Babs Bernard on 07-17-2024 Lymphocytes (Bld) [#/Vol] 0.81 10*3/uL Low 0.83-4.51 [facility] Lymphocytes/100 WBC Auto (Un sp spec)Ordered By: Babs Bernard on 07-17-2024 Lymphocytes/100 WBC (Bld) 15.3 % Low 19-41 [facility] MCV (mean corpuscular volume ) determinationOrdered By: Babs Bernard on 07-17-2024 MCV (RBC) [Entitic vol] 95.8 fL 81-99 [facility] Mean corpuscular hemoglobin (MCH) determinationOrdered By: Babs Bernard on 07-17-2024 MCH (RBC) [Entitic mass] 30.0 pg 27.0-32.0 [facility] Mean corpuscular hemoglobin concentration (MCHC) determinationOrdered By: Babs Bernard on 07-17-2024 MCHC (RBC) [Mass/Vol] 31.3 g/dL Low 32-36 [facility] Mean platelet volume determi nationOrdered By: Babs Bernard on 07-17-2024 Platelet mean volume (Bld) [Entitic vol] 10.7 fL 6.2-12.0 [facility] Monocyte percentageOrdered B y: Babs Bernard on 07-17-2024 Monocytes/100 WBC (Bld) 7.5 % 0-10 [facility] Neutrophil percentageOrdered By: Babs Bernard on 07-17-2024 Neutrophils/100 WBC (Bld) 73.8 % High 47-70 [facility] No Panel InformationOrdered By: Babs Bernard on 07-17-2024 Miscellaneous Test COMMENT . [facility] Comment on above: Performed at: - [address] [id number] Director: Miguel Anaya PhD, Phone: [phone] Nucleated red blood cell per centageOrdered By: Babs Bernard on 07-17-2024 Nucleated RBC/100 WBC (Bld) [Ratio] 0 % 0-5 [facility] Platelet countOrdered By: Buster Bernard on 07-17-2024 Platelets (Bld) [#/Vol] 195 10*3/uL 150-450 [facility] Potassium measurementOrdered By: Babs Bernard on 07-17-2024 Potassium [Moles/Vol] 4.1 mmol/L 3.5-5.1 [facility] RBC Auto (Bld) [#/Vol]Ordere d By: Babs Bernard on 07-17-2024 RBC (Bld) [#/Vol] 4.30 10*6/uL 4.2-5.4 [facility] Serum anion gap measurementO rdered By: Babs Bernard on 07-17-2024 Anion gap [Moles/Vol] 6 mmol/L 5-15 [facility] Serum globulin measurementOr dered By: Babs Bernard on 07-17-2024 Globulin (S) [Mass/Vol] 3.8 g/dL 2.2-4.2 [facility] Serum hepatitis B virus core antibody detectionOrdered By: Babs Bernard on 07-17-2024 HBV core Ab Ql (S) Negative Negative [facility] Serum hepatitis B virus surf parth antibody IgG detectionOrdered By: Babs Bernard on 07-17-2024 HBV surface IgG Ql (S) Non-Reactive [facility] Comment on above: Non Reactive: Incons istent with immunity less than <10 mIU/mL Reactive: Consistent with immunity greater than or equal to 10 mIU/mL Serum or plasma alanine vo otransferase (ALT) measurementOrdered By: Babs Bernard on 07-17-2024 ALT [Catalytic activity/Vol] 16 U/L 13-56 [facility] Serum or plasma albumin oli urement (mass/volume)Ordered By: Babs Bernard on 07-17-2024 Albumin [Mass/Vol] 3.5 g/dL 3.2-5.0 [facility] Serum or plasma alkaline bg sphatase measurementOrdered By: Babs Bernard on 07-17-2024 ALP [Catalytic activity/Vol] 74 U/L 45-117 [facility] Serum or plasma calcium oli urement (mass/volume)Ordered By: Babs Bernard on 07-17-2024 Calcium [Mass/Vol] 9.0 mg/dL 8.5-10.1 [facility] Serum or plasma creatinine m easurement (mass/volume)Ordered By: Babs Bernard on 07-17-2024 Creatinine [Mass/Vol] 1.60 mg/dL High 0.55-1.02 [facility] Comment on above: The validity of the calculated GFR & GFRAA in patients over 70 years has not been determined. Clinical correlation is essential. Serum or plasma urea nitroge n measurement (mass/volume)Ordered By: Babs Bernard on 07-17-2024 Urea nitrogen [Mass/Vol] 34 mg/dL High 7-18 [facility] Sodium levelOrdered By: Jacklyn Bernard on 07-17-2024 Sodium [Moles/Vol] 140 mmol/L 136-145 [facility] Total proteinOrdered By: Lolly Bernard on 07-17-2024 Protein [Mass/Vol] 7.3 g/dL 6.4-8.2 [facility] White blood cell (WBC) count Ordered By: Babs Bernard on 07-17-2024 WBC (Bld) [#/Vol] 5.3 10*3/uL 4.4-11.0 [facility] CALCIUM IONIZED [CCL]on 06-27 Calcium [Moles/Vol] 1.17 mmol/L Normal 1.08-1.30 [facility] Comment on above: Performed By: #### 2 78386 #### [facility],[address] [place] [address] Calcium, Ionized 1.20 mmol/L Normal 1.08-1.30 [facility] Comment on above: Result Comment: [facility] [address] [place] [address] Antonio Chatman III, M.D. [id number] Performed By: #### 2 90852 #### [facility],[address] [place] [address] PTH, INTACT [CCL]on 07-07-19 25 PTH, Intact 107 pg/mL High [facility] Comment on above: Result Comment: [facility] [address] [place] [address] Antonio Chatman III, M.D. [id number] Performed By: #### 2 14119 #### [facility],[address] [place] [address] T4 (THYROXINE) TOTALon 07-06 T4 (THYROXINE) TOTAL Normal [facility] Comment on above: Result Comment: THYR OXINE(T4) Performed By: #### 2 23584 #### [facility],[address] [place] [address] T4 [Mass/Vol] 7.0 ug/dL Normal 4.7 - 13.3 [facility] Comment on above: Performed By: #### 2 59461 #### [facility],[address] [place] [address] TSHon 07-06-2024 TSH Qn 2.44 m[IU]/L Normal 0.35 - 3.74 [facility] Comment on above: Performed By: #### 2 07247 #### [facility],[address] [place] [address] Ext Non Vasc Limited/Soft Ti sson 07-04-2024 Ext Non Vasc Limited/Soft Tiss [facility] [address] [place], [place] [address] Ext Non Vasc Limited/Soft Tiss MR#: [id number] Acct: [id number] Name: FELIPA LIMA Rep #: [id number] : 1955 F 68 From: Liborio carroll MD PCP: Dr. Kandace Katz MD Status: REG CLI Study: Ext Non Vasc Limited/Soft Tiss Date of Exam: 0 07/04/24 Exam# [id number] Ordering Dr: Kandace Katz MD [id number] STUDY: SUPERFICIAL ULTRASOUND - UPPER LEFT THIGH. [...] EST , CC: Dr. Kandace Katz MD Global Sales Executive: Signed Normal [facility] SCRN MAMM (CAD)W/YESSENIA BILATo n 07-04-2024 SCRN MAMM (CAD)[facility] Services [address] [place] [id number] SCRN MAMM (CAD)W/YESSENIA BILAT MR#: [id number] Acct: [id number] Name: FELIPA LIMA SHREYAS Rep #: [id number] : 1955 F 68 From: Liborio carroll MD PCP: Dr. Kandace Katz MD Status: REG CLI Study: SCRN MAMM (CAD)W/YESSENIA BILAT Date of Exam: 02/18 Exam# [id number] Ordering Dr: Kandace Katz MD [id number] MAMMOGRAPHY - BILATERAL SCREENING REASON FOR EXAM: [...] delay biopsy of a clinically suspicious abnormality. [id number] Electronically Signed: Liborio Lombardo MD at 13:01 EST , CC: Dr. Kandace Katz MD Global Sales Executive: Signed Normal [facility] Thyroidon 07-04-2024 Thyroid [facility] [address] [place] [address] Thyroid MR#: [id number] Acct: [id number] Name: FELIPA LIMA Rep #: [id number] : 1955 F 68 From: Liborio carroll MD PCP: Dr. Kandace Katz MD Status: REG CLI Study: Thyroid Date of Exam: 07/04/24 Exam# [id number] Ordering Dr: Kandace Katz MD [id number] STUDY: THYROID ULTRASOUND REASON FOR EXAM: Female, [...] EST , CC: Dr. Kandace Katz MD Global Sales Executive: Signed Normal [facility] URINE CULTURE [CCL]on 2023 Bacteria identified Cx Nom (U) URCUL See Results Below See Below CULTURE, URINE MIXED MICROBIOTA 10,000 -<50,000 CFU/ml Mixed microbiota No further workup. Mixed microbiota can be due to???urine???contamination with s llection technique or straight catheterization for???urine???collection. SOURCE: Urine (Nonspecific) [place] [address] Antonio Chatman III, M.D. [id number] SEND TO NO Normal [facility] Comment on above: Performed By: #### 2 85590 #### [facility],[address] [place] [address] [facility]ELIP[facility] LIM[facility] ([id number]) 1955 F Date Time Provider Department 05/16[facility] During your visit today, we recorded the following information about you: Cody Da Silva, RN 05/16/2024 10:53 AM Signed Received VM [...] until the culture results. DOROTHY Alaniz Lindsay, APRN.HELPER DRIVER 05/16/2024 11:11 AM Signed The following approved medication requests have been transmitted electronically. Requested Prescriptions Signed Prescriptions Disp Refills ciprofloxacin HCl (CIPRO) 500 mg tablet 14 tablet 0 Sig: Take 1 tablet by mouth two times a day for 7 days. FOR 7 DAYS. Authorizing Provider: FAITH PADRON APRN.HELPER DRIVER Will call with results of c+s Cody [...] Status:Closed by CODY DA SILVA on 05/16/24 [facility] Roni 05-09-2024 ANAHYN Telephone (URCANT) -- FELIPA LIMA ([id number]) 1955 F Date Time Provider Department 05/09/24 [...] chills. Please advise. Thanks, DERRICK Sun Lindsay, APRN.ANAHY 05/09/2024 2:30 PM Signed Pt has a standing urin culture order, can do this and call for results. Thanks, Faith Padron APRN.Hector Levine [facility] 05/10/2024 11:34 AM Signed I called and spoke with the pt. She states an understanding. She states she is having this completed at [facility] and will have them fax over the results to us. DERRICK Sun Brooke, RN 05/11/2024 10:47 AM Signed Standing urine culture lab order faxed to [facility] at [phone] per patient request Rafat Aragon RN Allergies [...] Encounter Status:Closed by HECTOR DAVILA on 05/10/24 [facility] 04-04-2024 LARRY Telephone (URCANT) -- FELIPA LIMA ([id number]) 1955 F Date Time Provider Department 04/04/24 JULIA SUAREZ During your visit today, we recorded the following information about you: Rafat Aragon RN 04/04/2024 10:31 AM Signed Patient called would like results of ct abd/pelvis and wants to know when to make follow up appointment. She would like to see Dr Trammell next time. Thanks, DOROTHY Charles Melissa, APRN.HELPER DRIVER 04/04/2024 10:40 AM Signed She should have had a follow up to review the results, I will call her and review. Thanks Julia Suarez, KOHINOOR OPERATOR.HELPER DRIVER Allergies As of Date: 04/04/2024 Noted Allergy [...] Encounter Status:Closed by JULIA SUAREZ on 04/04/24 [facility] [address] ABD/PEL WO IVCONon 2023 CT ABD/PEL WO IVCON * * *Final Report* * * DATE OF EXAM: Mar 25 2024 1:53PM [facility] 0531 - CT ABD/PEL WO IVCON / [...] 3. Stable incidental findings are detailed above. Global Sales Executive: VALENCIA Transcribe Date/Time: Mar 28 2024 4:18P Dictated by : HUBERT IBANEZ MD This examination was interpreted and the report reviewed and electronically signed by: HUBERT IBANEZ MD on Mar 28 2024 4:28PM EST [id number] [facility] 03-07-2024 [facility] Telephone (URCANT) -- FELIPA LIMA ([id number]) 1955 F Date Time Provider Department 03/07/24 FAITH PADRON During your visit today, we recorded the following information about you: Rafat Aragon RN 03/07/2024 1:55 PM [facility]igned [facility] states cefdinir ordered yesterday for patient allergy to keflex states rash to tongue. Attempted to call patient for more info, no answer. Left voicemail to call office back. Please advise. Thanks, DOROTHY Charleswalcott Sudeep: [phone] Faith Padron APRN.ANAHY 03/07/2024 2:06 PM Signed I'm going to [...] FOR 5 DAYS. Authorizing Provider: FAITH PADRON APRN.Rafat Bergman RN 03/07/2024 2:18 PM Signed Called and spoke with pharmacist Sudeep at [facility] and notified Ciprofloxacin ordered cefdinir to be [...] Encounter Status:Closed by RAFAT ARAGON on 03/07/24 Normal Bacteria Ur Culton Bacteria identified Cx Nom (U) CULTURE, URINE: >=100,000 CFU/ml Normal Urogenital Abiodun Normal Comment on above: Performed By: #### 6 30-4 #### [facility] CLIA [id number] [facility] [employer] [address] [place] CNOVon 03-06-2024 CNOV Office Visit (URCA52 2) -- FELIPA LIMA ([id number]) 1955 F Date Time Provider Department 03/06/24 11:30 AM JULIA SUAREZ [id number] During your visit today, we recorded the following information about you: Julia Suarez APRN.HELPER DRIVER 03/06/2024 11:26 AM Signed [facility] ESTABLISHED PATIENT OFFICE VISIT Patient presents with: [...] date: Chronic kidney disease, stage IV (severe) (HCC) Comment: Dr. Nickerson No date: Kidney stones [...] date: PT ED OBSTETRICS AND GYNECOLOGY Comment: [facility] FAMILY HISTORY Problem Relation Age of Onset [...] call with results - CT ABD/PEL WO AMAYAON Julia Suarez APRN.HELPER DRIVER This note was partially created using voice recognition software and is inherently subject to errors including those of syntax and sound-alike substitutions which may escape proofreading. In such instances, original meaning may be extrapolated by contextual derivation. Allergies As of Date: 03/06/2024 Noted Allergy Reaction (more content not included)... [facility] Roni 08-04-2023 ANAHYN Telephone (UROLAG) -- FELIPA LIMA ([id number]) 1955 F Date Time Provider Department 08/04/23 [...] Encounter Status:Closed by PORSHA TRAMMELL on 08/04/23 [facility] Qualitative QuantiFERON-TB g old in tube testOrdered By: Maxx Arevalo on 10-27-2022 M. tuberculosis tuberculin stim IFN-g Ql (Bld) 0.03 IU/mL . [facility] Serum hepatitis B virus core antibody detectionOrdered By: Maxx Arevalo on 10-27-2022 HBV core Ab Ql (S) Negative Negative [facility] Comment on above: Performed at: [address] Director: Miguel Anaya PhD, Phone: [phone] Thin prep Papanicolaou smear with manual screeningOrdered By: Maxx Arevalo on 10-27-2022 Thin prep Papanicolaou smear with manual screening Comment . [facility] Comment on above: QuantiFERON-TB Gold Plus is [...] smear with manual screening 0.01 IU/mL . [facility] Thin prep Papanicolaou smear with manual screening > 10.00 IU/mL . [facility] Thin prep Papanicolaou smear with manual screening Negative Negative [facility] Comment on above: No response to M [...] RODRIGUEZ M.D. Signed By: BRAD RODRIGUEZ M.D. Normal [facility] 11-12-2021 Potassium [Moles/Vol] 5.4 mmol/L High 3.5-5.1 [facility] Comment on above: Order Comment: Jamalu s: M Result Comment: Slig ht Hemolysis, Result may be affected. Performed By: #### L 500.33920 #### [facility] [address] [place] [address] OR.OPRPTon 11-12-2021 Operative Report Normal [facility] OR.OPRPT Patient Name: FELIPA LIMA [address] [place] [address] Date of : [address] [address] Unit Number: [id number] Operative Report Patient Status: REG [facility] Attending Doctor: Porsha Trammell MD Service Date: [...] and sterilely draped. I used a 22 Romanian cystoscope to grasp the previously placed stent. [...] Trammell MD Verified/Reviewed by 11/12/21 1649 Normal [facility] BMPon 10-23-2021 Anion gap [Moles/Vol] 7 mmol/L Normal 5-16 [facility] Comment on above: Order Comment: Campu s: M Performed By: #### L 500.09553 #### [facility] [place] [address] Calcium [Mass/Vol] 8.5 mg/dL Normal 8.5-10.5 [facility] Comment on above: Order Comment: Campu s: M Result Comment: NOTE NEW NORMAL RANGE DUE TO REAGENT CHANGE Performed By: #### L 500.61141 #### [facility] [place] [address] Chloride [Moles/Vol] 113 mmol/L High 98-107 [facility] Comment on above: Order Comment: Campu s: M Performed By: #### L 500.18797 #### [facility] [address] [place] [address] CO2 [Moles/Vol] 23.0 mmol/L Normal 21-32 [facility] Comment on above: Order Comment: Campu s: M Performed By: #### L 500.23510 #### [facility] [address] [place] [address] Creatinine [Mass/Vol] 1.56 mg/dL High 0.510-0.950 [facility] Comment on above: Order Comment: Campu s: M Result Comment: Ashley ents receiving either N-Acetylcysteine (NAC) or Metamizole prior to venipuncture, may have falsely depressed results. Performed By: #### L 500.24009 #### [facility] [address] [place] [address] Glucose [Mass/Vol] 132 mg/dL High 70-100 [facility] Comment on above: Order Comment: Campu s: M Result Comment: 70-1 00- Normal Fasting; 100-125 Impaired Fasting; greater than 126 on more than one result- Diabetes. ADA guidelines. Results may be falsely elevated after the administration of Sulfapyridine. Results may be falsely depressed after the administration of Sulfasalazine. Performed By: #### L 500.38177 #### [facility] [address] [place] [address] Potassium [Moles/Vol] 4.8 mmol/L Normal 3.5-5.1 [facility] Comment on above: Order Comment: Campu s: M Performed By: #### L 500.23889 #### [facility] [address] [place], [place] [address] Sodium [Moles/Vol] 143 mmol/L Normal 136-145 [facility] Comment on above: Order Comment: Campu s: M Performed By: #### L 500.45501 #### [facility] [address] [place] [address] Urea nitrogen [Mass/Vol] 30 mg/dL High 7-26 [facility] Comment on above: Order Comment: Campu s: M Performed By: #### L 500.01064 #### [facility] [address] [place] [address] Urea nitrogen/Creatinine [Mass ratio] 19 mg/mg Normal 15-24 [facility] Comment on above: Order Comment: Campu s: M Performed By: #### L 500.70760 #### [facility] [address] [place] [address] CBC W/DIFFon 10-23-2021 BASO ABS 0.00 K/CU MM Normal 0-0.2 [facility] Comment on above: Order Comment: Campu s: M Performed By: #### L 500.71387 #### [facility] [address] [place] [address] Basophils/100 WBC (Bld) 0.4 % Normal 0-2 [facility] Comment on above: Order Comment: Campu s: M Performed By: #### L 500.86346 #### [facility] [address] [place] [address] EOS ABS 0.00 K/CU MM Normal 0-0.5 [facility] Comment on above: Order Comment: Campu s: M Performed By: #### L 500.05345 #### [facility] [address] [place] [address] Eosinophils/100 WBC (Bld) 0.0 % Normal 0-5 [facility] Comment on above: Order Comment: Campu s: M Performed By: #### L 500.87130 #### [facility] [address] [place], [place] [address] Erythrocyte distribution width (RBC) [Ratio] 12.4 % Normal 11-14.5 [facility] Comment on above: Order Comment: Campu s: M Performed By: #### L 500.05569 #### [facility] [address] [place] [address] Hematocrit (Bld) [Volume fraction] 36.0 % Normal 35.0-47.0 [facility] Comment on above: Order Comment: Campu s: M Performed By: #### L 500.97065 #### [facility] [address] [place] [address] Hemoglobin (Bld) [Mass/Vol] 11.7 g/dL Normal 11.5-15.5 [facility] Comment on above: Order Comment: Campu s: M Performed By: #### L 500.65499 #### [facility] [address] [place] [address] IMMATR GRAN ABS 0.00 K/CU MM Normal Less than 2 [facility] Comment on above: Order Comment: Campu s: M Performed By: #### L 500.47763 #### [facility] [address] [place] [address] IMMATURE GRAN % 0.4 % Normal Less than 2 [facility] Comment on above: Order Comment: Campu s: M Performed By: #### L 500.18792 #### [facility] [address] [place] [address] LYMPH ABS 0.50 K/CU MM Low 0.9-4.4 [facility] Comment on above: Order Comment: Campu s: M Performed By: #### L 500.00524 #### [facility] [address] [place] [address] Lymphocytes/100 WBC (Bld) 9.8 % Low 20-40 [facility] Comment on above: Order Comment: Campu s: M Performed By: #### L 500.84532 #### [facility] [address] [place] [address] MCHC (RBC) [Mass/Vol] 32.5 g/dL Normal 32.0-36.0 [facility] Comment on above: Order Comment: Campu s: M Performed By: #### L 500.13668 #### [facility] [address] [place] [address] MCV (RBC) [Entitic vol] 92.1 fL Normal 80.0-99.0 [facility] Comment on above: Order Comment: Campu s: M Performed By: #### L 500.82841 #### [facility] [address] [place] [address] MONO ABS 0.30 K/CU MM Normal 0.1-1.1 [facility] Comment on above: Order Comment: Campu s: M Performed By: #### L 500.26950 #### [facility] [address] [place] [address] Monocytes/100 WBC (Bld) 5.1 % Normal 2-10 [facility] Comment on above: Order Comment: Campu s: M Performed By: #### L 500.92274 #### [facility] [address] [place] [address] NEUTROPHIL ABS 4.30 K/CU MM Normal 2.0-8.3 [facility] Comment on above: Order Comment: Campu s: M Performed By: #### L 500.01894 #### [facility] [address] [place] [address] Neutrophils/100 WBC (Bld) 84.3 % High 45-75 [facility] Comment on above: Order Comment: Campu s: M Performed By: #### L 500.31202 #### [facility] [address] [place] [address] Nucleated RBC/100 WBC (Bld) [Ratio] 0.0 % Normal Less than 1 [facility] Comment on above: Order Comment: Campu s: M Performed By: #### L 500.44964 #### [facility] [address] [place] [address] Platelet mean volume (Bld) [Entitic vol] 10.9 fL Normal 9.4-12.4 [facility] Comment on above: Order Comment: Campu s: M Performed By: #### L 500.24404 #### [facility] [address] [place] [address] PLT 165 K/CU MM Normal 150-450 [facility] Comment on above: Order Comment: Campu s: M Performed By: #### L 500.38162 #### [facility] [address] [place] [address] RBC 3.91 M/CU MM Normal 3.90-5.30 [facility] Comment on above: Order Comment: Campu s: M Performed By: #### L 500.50876 #### [facility] [address] [place] [address] WBC 5.1 K/CUMM Normal 4.5-11.0 [facility] Comment on above: Order Comment: Campu s: M Performed By: #### L 500.92270 #### [facility] [address] [place] [address] DISCH.SUMon 10-23-2021 DISCH.[facility] Patient Name: FELIPA LIMA [address] [place] [address] Date of : [address] [address] Unit Number: [id number] Discharge Summary Patient Status: ADM Savannah Attending [...] PUD, GERD, CKD stage III who follows asset liability analyst Dr. Guerrero, psoriasis, and nephrolithiasis who patient follows urologist Dr. Trammell who comes to the [facility] with chief complaint per chart of abnormal CAT scan when there was concern for lipoma with right upper quadrant fullness associated with nausea at primary care provider office per chart. As a result, primary care provider ordered a CT abdomen/ pelvis that instead showed nephrolithiasis with hydroureteronephrosis so patient came into [facility] for further surgical intervention for her hydroureteronephrosis. [...] One Week For Providers: Kandace Katz MD [place] [facility] In One-Two W... For Providers: Porsha Trammell MD [address] [place] [address] [address] [place] [address] Condition: Improved, Stable Disposition Home Phys Discharge Time Incur(Min) 32 CC: Kandace Katz MD Disclaimer This dictation was created using voice recognition software. Phonetic and/or minor grammatical errors may exist. eSign Date and Time Tonja Neumann MD Verified/Reviewed by 10/23/21 1117 [facility] GFR ESTon 10-23-2021 IF AMER 40 [facility] Comment on above: Order Comment: Campu s: M Performed By: #### L 500.94507 #### [facility] [address] [place] [address] IF non-AFR AMER 33 [facility] Comment on above: Order Comment: Campu s: M Performed By: #### L 500.86579 #### [facility] [address] [place] [address] PROG.NOTEon 10-23-2021 PROG.NOTE Patient Name: FELIPA LIMA [address] [place] [address] Date of : [address] [place], [place] [address] Unit Number: [id number] Progress Note-Physician Patient Status: ADM Savannah Attending [...] (Last) Result Date Time Pulse Ox 94 10/24 719 B/P 100/47 10/23 714 O2 Delivery ROOM AIR 10/23 714 Temp 97.5 10/23 714 Pulse 50 10/23 0715 Resp 20 10/23 714 Abdominal exam-benign Assessment and Plan Conclusion 1. [...] Solano MD Verified/Reviewed by 10/23/21 1201 Normal [facility] Progress Note-Physician Normal [facility] URINE CULTUREon 10-23-2021 Bacteria identified Cx Nom (U) URINE RESULT >100,000 COL/ML MIXED ABIODUN-PLEASE REPEAT-POSSIBLE CONTAMIN Normal [facility] Comment on above: Performed By: #### M 100.79749 #### [facility] [place] [address] BMPon 10-22-2021 Anion gap [Moles/Vol] 7 mmol/L Normal 5-16 [facility] Comment on above: Order Comment: Campu s: M Performed By: #### L 500.89359, L500.54333 #### [facility] [place] [address] Calcium [Mass/Vol] 8.9 mg/dL Normal 8.5-10.5 [facility] Comment on above: Order Comment: Campu s: M Result Comment: NOTE NEW NORMAL RANGE DUE TO REAGENT CHANGE Performed By: #### L 500.40597, L500.38572 #### [facility] [place] [address] Chloride [Moles/Vol] 112 mmol/L High 98-107 [facility] Comment on above: Order Comment: Campu s: M Performed By: #### L 500.58806, L500.24684 #### [facility] [place] [address] CO2 [Moles/Vol] 25.0 mmol/L Normal 21-32 [facility] Comment on above: Order Comment: Campu s: M Performed By: #### L 500.64487, L500.76966 #### [facility] [place] [address] Creatinine [Mass/Vol] 1.60 mg/dL High 0.510-0.950 [facility] Comment on above: Order Comment: Campu s: M Result Comment: Ashley ents receiving either N-Acetylcysteine (NAC) or Metamizole prior to venipuncture, may have falsely depressed results. Performed By: #### L 500.95984, L500.11564 #### [facility] [place] [address] Glucose [Mass/Vol] 111 mg/dL High 70-100 [facility] Comment on above: Order Comment: Campu s: M Result Comment: 70-1 00- Normal Fasting; 100-125 Impaired Fasting; greater than 126 on more than one result- Diabetes. ADA guidelines. Results may be falsely elevated after the administration of Sulfapyridine. Results may be falsely depressed after the administration of Sulfasalazine. Performed By: #### L 500.10245, L500.28139 #### [facility] [address] [place] [address] Potassium [Moles/Vol] 4.1 mmol/L Normal 3.5-5.1 [facility] Comment on above: Order Comment: Campu s: M Performed By: #### L 500.01664, L500.91005 #### [facility] [address] [place] [address] Sodium [Moles/Vol] 144 mmol/L Normal 136-145 [facility] Comment on above: Order Comment: Campu s: M Performed By: #### L 500.31018, L500.29700 #### [facility] [address] [place] [address] Urea nitrogen [Mass/Vol] 33 mg/dL High 7-26 [facility] Comment on above: Order Comment: Campu s: M Performed By: #### L 500.37798, L500.76178 #### [facility] [address] [place] [address] Urea nitrogen/Creatinine [Mass ratio] 21 mg/mg Normal 15-24 [facility] Comment on above: Order Comment: Campu s: M Performed By: #### L 500.82212, L500.45761 #### [facility] [address] [place] [address] CBCon 10-22-2021 Erythrocyte distribution width (RBC) [Ratio] 12.7 % Normal 11-14.5 [facility] Comment on above: Order Comment: Campu s: M Performed By: #### L 200.18159 #### [facility] [address] [place] [address] Hematocrit (Bld) [Volume fraction] 37.6 % Normal 35.0-47.0 [facility] Comment on above: Order Comment: Campu s: M Performed By: #### L 200.58537 #### [facility] [address] [place] [address] Hemoglobin (Bld) [Mass/Vol] 12.2 g/dL Normal 11.5-15.5 [facility] Comment on above: Order Comment: Campu s: M Performed By: #### L 200.69388 #### [facility] [address] [place] [address] MCHC (RBC) [Mass/Vol] 32.4 g/dL Normal 32.0-36.0 [facility] Comment on above: Order Comment: Campu s: M Performed By: #### L 200.05469 #### [facility] [address] [place] [address] MCV (RBC) [Entitic vol] 92.2 fL Normal 80.0-99.0 [facility] Comment on above: Order Comment: Campu s: M Performed By: #### L 200.74320 #### [facility] [address] [place] [address] Nucleated RBC/100 WBC (Bld) [Ratio] 0.0 % Normal Less than 1 [facility] Comment on above: Order Comment: Campu s: M Performed By: #### L 200.39340 #### [facility] [address] [place] [address] Platelet mean volume (Bld) [Entitic vol] 10.5 fL Normal 9.4-12.4 [facility] Comment on above: Order Comment: Campu s: M Performed By: #### L 200.94663 #### [facility] [address] [place] [address] PLT 160 K/CU MM Normal 150-450 [facility] Comment on above: Order Comment: Campu s: M Performed By: #### L 200.26219 #### [facility] [address] [place] [address] RBC 4.08 M/CU MM Normal 3.90-5.30 [facility] Comment on above: Order Comment: Campu s: M Performed By: #### L 200.04715 #### [facility] [address] [place] [address] WBC 5.0 K/CUMM Normal 4.5-11.0 [facility] Comment on above: Order Comment: Campu s: M Performed By: #### L 200.09190 #### [facility] [address] [place] [address] GFR ESTon 10-22-2021 IF AMER 39 Normal [facility] Comment on above: Order Comment: Campu s: M Performed By: #### L 500.48627, L500.80182 #### [facility] [address] [place], [place] [address] IF non-AFR AMER 32 Normal [facility] Comment on above: Order Comment: Campu s: M Performed By: #### L 500.86867, L500.48542 #### [facility] [address] [place] [address] [place] [address] # [phone] .Syeda 10-22-2021 CONSULTATION-H&P Normal [facility] Patient Name: FELIPA LIMA [address] [facility] [address] Date of : [address] [place], [place] [address] Unit Number: [id number] CONSULTATION-HandP Patient Status: ADM IN Attending Doctor: [...] or pain. Patient was transferred over to [facility] when the CT scan was compared to [...] as Reported by MIKO SEGUNDO on 04/15/20 174 Last Action: Reviewed on 10/22/216 by KYM [...] Entered as Reported by MIKO SEGUNDO on 04/15/201740 Last Action: Reviewed on 10/22/215 by KYM TORRES Pantoprazole* (Protonix 40MG Tab*) 40 MG TABLET.DR 40 MG PO QDAYAC, Ref 0 (Reported) Entered as Reported by ADA ELIZALDE on 12/22/19 1835 Last Action: Reviewed on 10/22/2112 by KYM TORRES potassium CHLORIDE* (K-Dur 10MEQ Tab.sa*) (Unknown Strength) TABLET.ER (Unknown Dose) PO TID, Ref 0 (Reported) Entered as Reported by FERNANDO OLIVARES on 08/09/20 9111 Last Action: Reviewed on 10/22/2112 by KYM [...] 32 BUN/Creatinin (more content not included)... Normal [facility] OR.OPRPT Patient Name: FELIPA LIMA [address] Date of : [address] [place], [place] [address] Unit Number: [id number] Operative Report Patient Status: ADM IN Attending [...] Marivel Solano MD Verified/Reviewed by 10/22/21 1504 [facility] 10-22-2021 [facility] Patient Name: FELIPA LIMA [address] Date of : [address] [place] [address] Unit Number: [id number] Progress Note-Hospitalist Patient Status: ADM [place]annah Attending [...] PUD, GERD, CKD stage III who follows asset liability analyst Dr. Hall, psoriasis, and nephrolithiasis who patient follows asset liability analyst Dr. Peter who comes to the [facility] chief complaint for chart of abnormal CAT scan that she follow with her primary care provider for right upper quadrant fullness associated nausea with concern for possible lipoma versus a hernia and was found to have nephrolithiasis with hydroureteronephrosis so patient came into [facility] for further surgical intervention for her hydroureteronephrosis. [...] Time Tonja Neumann MD Verified/Reviewed by 10/22/21 5253 [facility] Progress Note-Hospitalist [facility] 10-21-2021 Anion gap [Moles/Vol] 6 mmol/L Normal 5-16 [facility] Comment on above: Order Comment: Campu s: M Performed By: #### L 500.59074, L500.27559, L500.26872, L500.23310 #### [facility] [place] [address] Calcium [Mass/Vol] 8.9 mg/dL Normal 8.5-10.5 [facility] Comment on above: Order Comment: Campu s: M Result Comment: NOTE NEW NORMAL RANGE DUE TO REAGENT CHANGE Performed By: #### L 500.18747, L500.92032, L500.92553, L500.49619 #### [facility] [address] [place] [address] Chloride [Moles/Vol] 110 mmol/L High 98-107 [facility] Comment on above: Order Comment: Campu s: M Performed By: #### L 500.09875, L500.88655, L500.42497, L500.91624 #### [facility] [address] [place] [address] CO2 [Moles/Vol] 27.0 mmol/L Normal 21-32 [facility] Comment on above: Order Comment: Campu s: M Performed By: #### L 500.49139, L500.54140, L500.97263, L500.90289 #### [facility] [address] [place], [place] [address] Creatinine [Mass/Vol] 1.66 mg/dL High 0.510-0.950 [facility] Comment on above: Order Comment: Campu s: M Result Comment: Ashley ents receiving either N-Acetylcysteine (NAC) or Metamizole prior to venipuncture, may have falsely depressed results. Performed By: #### L 500.81374, L500.92026, L500.37579, L500.67203 #### [facility] [place] [address] Glucose [Mass/Vol] 84 mg/dL Normal 70-100 [facility] Comment on above: Order Comment: Campu s: M Result Comment: 70-1 00- Normal Fasting; 100-125 Impaired Fasting; greater than 126 on more than one result- Diabetes. ADA guidelines. Results may be falsely elevated after the administration of Sulfapyridine. Results may be falsely depressed after the administration of Sulfasalazine. Performed By: #### L 500.08728, L500.33926, L500.80622, L500.47312 #### [facility] [address] [place] [address] Potassium [Moles/Vol] 4.7 mmol/L Normal 3.5-5.1 [facility] Comment on above: Order Comment: Campu s: M Result Comment: Slig ht Hemolysis, Result may be affected. Performed By: #### L 500.53233, L500.03208, L500.51385, L500.35659 #### [facility] [address] [place] [address] Sodium [Moles/Vol] 143 mmol/L Normal 136-145 [facility] Comment on above: Order Comment: Campu s: M Performed By: #### L 500.40778, L500.21525, L500.82796, L500.05296 #### [facility] [address] [place] [address] Urea nitrogen [Mass/Vol] 35 mg/dL High 7-26 [facility] Comment on above: Order Comment: Campu s: M Performed By: #### L 500.13791, L500.19884, L500.29275, L500.83785 #### [facility] [address] [place] [address] Urea nitrogen/Creatinine [Mass ratio] 21 mg/mg Normal 15-24 [facility] Comment on above: Order Comment: Campu s: M Performed By: #### L 500.46083, L500.53612, L500.05373, L500.81505 #### [facility] [address] [place] [address] CBC W/DIFFon 10-21-2021 BASO ABS 0.00 K/CU MM Normal 0-0.2 [facility] Comment on above: Order Comment: Campu s: M Performed By: #### L 500.51621 #### [facility] [address] [place] [address] Basophils/100 WBC (Bld) 0.6 % Normal 0-2 [facility] Comment on above: Order Comment: Campu s: M Performed By: #### L 500.54934 #### [facility] [address] [place] [address] EOS ABS 0.20 K/CU MM Normal 0-0.5 [facility] Comment on above: Order Comment: Campu s: M Performed By: #### L 500.12400 #### [facility] [address] [place] [address] Eosinophils/100 WBC (Bld) 3.5 % Normal 0-5 [facility] Comment on above: Order Comment: Campu s: M Performed By: #### L 500.81657 #### [facility] [address] [place] [address] Erythrocyte distribution width (RBC) [Ratio] 12.7 % Normal 11-14.5 [facility] Comment on above: Order Comment: Campu s: M Performed By: #### L 500.92688 #### [facility] [address] [place] [address] Hematocrit (Bld) [Volume fraction] 38.5 % Normal 35.0-47.0 [facility] Comment on above: Order Comment: Campu s: M Performed By: #### L 500.97518 #### [facility] LABORATORY [address] [place] [address] Hemoglobin (Bld) [Mass/Vol] 12.5 g/dL Normal 11.5-15.5 [facility] Comment on above: Order Comment: Campu s: M Performed By: #### L 500.74770 #### [facility] [address] [place] [address] IMMATR GRAN ABS 0.00 K/CU MM Normal Less than 2 [facility] Comment on above: Order Comment: Campu s: M Performed By: #### L 500.14778 #### [facility] [address] [place] [address] IMMATURE GRAN % 0.2 % Normal Less than 2 [facility] Comment on above: Order Comment: Campu s: M Performed By: #### L 500.12770 #### [facility] [address] [place] [address] LYMPH ABS 1.00 K/CU MM Normal 0.9-4.4 [facility] Comment on above: Order Comment: Campu s: M Performed By: #### L 500.58822 #### [facility] [address] [place] [address] Lymphocytes/100 WBC (Bld) 15.9 % Low 20-40 [facility] Comment on above: Order Comment: Campu s: M Performed By: #### L 500.15947 #### [facility] [address] [place] [address] MCHC (RBC) [Mass/Vol] 32.5 g/dL Normal 32.0-36.0 [facility] Comment on above: Order Comment: Campu s: M Performed By: #### L 500.77591 #### [facility] [address] [place] [address] MCV (RBC) [Entitic vol] 92.3 fL Normal 80.0-99.0 [facility] Comment on above: Order Comment: Campu s: M Performed By: #### L 500.62867 #### [facility] [address] [place] [address] MONO ABS 0.50 K/CU MM Normal 0.1-1.1 [facility] Comment on above: Order Comment: Campu s: M Performed By: #### L 500.49665 #### [facility] [address] [place] [address] Monocytes/100 WBC (Bld) 7.2 % Normal 2-10 [facility] Comment on above: Order Comment: Campu s: M Performed By: #### L 500.33729 #### [facility] [address] [place] [address] NEUTROPHIL ABS 4.60 K/CU MM Normal 2.0-8.3 [facility] Comment on above: Order Comment: Campu s: M Performed By: #### L 500.59471 #### [facility] [address] [place] [address] Neutrophils/100 WBC (Bld) 72.6 % Normal 45-75 [facility] Comment on above: Order Comment: Campu s: M Performed By: #### L 500.51619 #### [facility] [address] [place] [address] Nucleated RBC/100 WBC (Bld) [Ratio] 0.0 % Normal Less than 1 [facility] Comment on above: Order Comment: Campu s: M Performed By: #### L 500.42652 #### [facility] [address] [place] [address] Platelet mean volume (Bld) [Entitic vol] 10.2 fL Normal 9.4-12.4 [facility] Comment on above: Order Comment: Campu s: M Performed By: #### L 500.23122 #### [facility] [address] [place] [address] PLT 171 K/CU MM Normal 150-450 [facility] Comment on above: Order Comment: Campu s: M Performed By: #### L 500.58543 #### [facility] [address] [id number] RBC 4.17 M/CU MM Normal 3.90-5.30 [facility] Comment on above: Order Comment: Campu s: M Performed By: #### L 500.10531 #### [facility] [address] [place] [address] WBC 6.3 K/CUMM Normal 4.5-11.0 [facility] Comment on above: Order Comment: Campu s: M Performed By: #### L 500.34869 #### [facility] [address] [place] [address] CT ABD/PEL STONE PROTOCOLon 10-21-2021 CT ABD/PEL [...] and do not require follow-up. Coronary atherosclerosis. Tray Packer (topogram) images: No additional findings. IMPRESSION: Probable calculus in the distal right ureter with associated inflammation and hydroureteronephrosis. Correlate with urinalysis for evidence of infection. Otherwise similar appearance of the right kidney and right ureter. This report was electronically signed by Ricardo Feliciano MD 10/21/2021 5:43 PM Reported By: Ricardo Feliciano Signed By: Ricardo Feliciano [facility] 10-21-2021 EMERGENCY PHYSICIAN REPORT This is a preliminary report only, as the practitioner review and authentication has not occurred. [facility] ER PHYSICIAN ASSESSMENT RECORDS : FlexChartData Event Time: 10/21/2021 16:30 Status: [facility]igned [facility] [[id number]] Attending Physician 65 / F / 1955 Chart (V2b) Chart created at 10/21/2021 16:21 by Huseyin Jerry Chart closed at 10/21/2021 17:49 Entry in Emergency Department at 10/21/2021 13:47 Patient Name: Felipa Lima Record Number: [id number] Date: 10/21/2021 16:21 Entered Department at: 10/21/2021 [...] is a 65-year-old female sent over to [facility] to be admitted secondary to inflammation and obstruction of the right kidney. Patient was being seen by a surgeon out in [place], she had some fullness in her right upper quadrant region that was to be evaluated. CT scan was obtained of this region [facility]: [facility] [address] [place] MEDICAL REC #: [id number] [place] [address] EMERGENCY DEPARTMENT REPORT EMERGENCY DEPARTMENT PHYSICIAN and ultimately was found to be a lipoma. Incidentally patient was found to have inflammatory and obstructive issues with the right kidney. Dedicated CT of the abdomen and pelvis was performed today and confirmed inflammation and obstruction of the right kidney. Patient was advised to come to [facility] emergency department to be admitted and treated for this issue. Reportedly patients asset liability analyst and urologist were called with these results. [...] 92.3 / 12.5 / 6.3 andgt;------andlt; 171 [facility] PATIENT NAME: FELIPA LIMA [address] [facility] [address] [place] MEDICAL REC #: [id number] [place] [address] EMERGENCY DEPARTMENT REPORT EMERGENCY DEPARTMENT PHYSICIAN / [...] Less Than 0.1 Mg/Dl; BILI TOTAL: 0.20 [facility] PATIENT NAME: FELIPA LIMA [address] [facility] [address] [place] MEDICAL REC #: [id number] [place] [address] EMERGENCY DEPARTMENT REPORT KELLY (more content not included)... Normal [facility] FLUOROSCOPY IN OR/PAIN MGTon 10-21-2021 FLUOROSCOPY IN [...] KELLER MD Signed By: SID KELLER MD [facility] GFR ESTon 10-21-2021 IF AMER 38 [facility] Comment on above: Order Comment: Campu s: M Performed By: #### L 500.59250, L500.68108, L500.01737, L500.10185 #### [facility] [address] [place] [address] IF non-AFR AMER 31 [facility] Comment on above: Order Comment: Campu s: M Performed By: #### L 500.18461, L500.93906, L500.23215, L500.76155 #### [facility] [address] [place] [address] HP.IMS.ADMon 10-21-2021 Admission-H&P [facility] HP.IMS.ADM Patient Name: FELIPA LIMA [address] [place] [address] Date of : [address] [address] Unit Number: [id number] Admission-HandP Patient Status: ADM IN Attending Doctor: Mari Chilel MD Service Date: 10/21/211738 History of Present Illness Chief Complaint/Present Illness: Hydronephrosis History of Present Illness Patient is a 65-year-old female with past medical history significant for CKD who presents to [facility] for abnormal CT scan. Patient was seeing the surgeon in [place] for right upper quadrant fullness. CT scan was obtained yesterday and found to be a lipoma, incidentally found to have inflammatory and obstructive issues with the right kidney. Dedicated CT of the abdomen and pelvis was performed today and patient was found to have inflammation and obstruction of the right kidney. Patient was instructed to come to the emergency department. ER physician at [facility] spoke with patient's urologist Dr. 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 Advance Directives Advance Directives Full Code Allergies/Home Medications Allergies Coded Allergies: IODINATED CONTRAST MEDIA (From CONTRAST MEDIA) (Mild, RASH 04/15/20) LATEX (08/11/20) WOOL (04/15/20) CODEINE (Mild, NAUESEA and VOMITING 12/22/19) MORPHINE (Mild, NAUESEA and VOMITING 12/22/19) Home Medications Acetaminophen* (Tylenol 500MG Tab*) 500 MG TABLET 500 MG PO Q4HPRN PRN PAIN, Ref 0 ( Reported) Entered as Reported by MIKO SEGUNDO on 04/15/20 174 Last Action: Reviewed on 10/22/216 by KYM [...] as Reported by MIKO SEGUNDO on 04/15/20 174 Last Action: Reviewed on 10/22/215 by KYM TORRES Pantoprazole* (Protonix 40MG Tab*) 40 MG TABLET.DR 40 MG PO QDAYAC, Ref 0 (Reported) Entered as Reported by ADA ELIZALDE on 12/22/19 1835 Last Action: Reviewed on 10/22/2112 by KYM TORRES potassium CHLORIDE* (K-Dur 10MEQ Tab.sa*) (Unknown Strength) TABLET.ER (Unknown Dose) PO TID, Ref 0 (Reported) Entered as Reported by FERNANDO OLIVARES on 08/09/20 3304 Last Action: Reviewed on 10/22/2112 by KYM [...] chills, fatigue.] (more content not included)... Normal [facility] LIPASEon 10-21-2021 Lipase [Catalytic activity/Vol] 36 U/L Normal 12-60 [facility] Comment on above: Order Comment: Campu s: M Result Comment: NOTE NEW NORMAL RANGE DUE TO REAGENT CHANGE Performed By: #### L 500.74459, L500.17135, L500.40169, L500.06787 #### [facility] [address] [place] [address] LIVERon 10-21-2021 Albumin [Mass/Vol] 3.3 g/dL Normal 3.2-5.0 [facility] Comment on above: Order Comment: Campu s: M Performed By: #### L 500.11215, L500.49579, L500.92414, L500.01064 #### [facility] [address] [place] [address] Albumin/Globulin [Mass ratio] 1.1 {ratio} Normal 0.8-2.0 [facility] Comment on above: Order Comment: Campu s: M Performed By: #### L 500.59569, L500.38972, L500.22765, L500.56678 #### [facility] [address] [place] [address] ALK PHOS 86 U/L Normal 45-117 [facility] Comment on above: Order Comment: Campu s: M Performed By: #### L 500.08090, L500.59537, L500.48110, L500.83414 #### [facility] [id number] ALT [Catalytic activity/Vol] 12 U/L Low 13-61 [facility] Comment on above: Order Comment: Campu s: M Result Comment: RESU LTS MAY BE FALSELY DEPRESSED AFTER THE ADMINISTRATION OF SULFASALAZINE AND/OR SULFAPYRIDINE. Performed By: #### L 500.95940, L500.20849, L500.29213, L500.13588 #### [facility] [address] [place] [address] AST [Catalytic activity/Vol] 15 U/L Normal 8-34 [facility] Comment on above: Order Comment: Campu s: M Result Comment: RESU LTS MAY BE FALSELY DEPRESSED AFTER THE ADMINISTRATION OF SULFASALAZINE AND/OR SULFAPYRIDINE. Performed By: #### L 500.50769, L500.30560, L500.91301, L500.76080 #### [facility] [address] [place] [address] BILI DIRECT LESS THAN 0.1 Normal 0.00-0.36 [facility] Comment on above: Order Comment: Campu s: M Result Comment: NOTE NEW NORMAL RANGE DUE TO REAGENT CHANGE Performed By: #### L 500.61293, L500.74471, L500.71428, L500.02065 #### [facility] [address] [place], [place] [id number] BILI TOTAL 0.20 MG/DL Normal 0.2-1.0 [facility] Comment on above: Order Comment: Campu s: M Performed By: #### L 500.27334, L500.55379, L500.18018, L500.89495 #### [facility] [address] [place] [address] Globulin (S) [Mass/Vol] 3.0 g/dL Normal 2.2-4.2 [facility] Comment on above: Order Comment: Campu s: M Performed By: #### L 500.70688, L500.83009, L500.65174, L500.83992 #### [facility] [place] [address] Protein [Mass/Vol] 6.3 g/dL Normal 6.0-8.5 [facility] Comment on above: Order Comment: Campu s: M Performed By: #### L 500.30829, L500.41359, L500.84227, L500.17735 #### [facility] [address] [place] [address] [id number] 10-21-2021 SARS-CoV-2 (COVID-19) RNA GIOVANNA+probe Ql (Unsp spec) Negative Invalid Interpretation Code Negative [facility] Comment on above: Order Comment: Campu [...] performed by PCR. Performed By: #### L 500.58779 #### [facility] [address] [place] [address] UA COMPLETEon 10-21-2021 Color (U) Straw Normal [facility] Comment on above: Order Comment: Campu s: M Performed By: #### L 600.00154 #### [facility] [address] [place] [address] Glucose (U) [Mass/Vol] Negative Normal NORMAL [facility] Comment on above: Order Comment: Campu s: M Performed By: #### L 600.16382 #### [facility] [address] [place], [place] [id number] Mucus Ql (Urine sed) TRACE Normal NEGATIVE [facility] Comment on above: Order Comment: Campu s: M Performed By: #### L 600.16141 #### [facility] [address] [place] [address] SQUAMOUS EPIS 3 EPI/HPF Normal 0-5 [facility] Comment on above: Order Comment: Campu s: M Performed By: #### L 600.00930 #### [facility] [address] [place] [address] UA APPEARANCE Clear Normal CLEAR [facility] Comment on above: Order Comment: Campu s: M Performed By: #### L 600.24504 #### [facility] [place] [address] UA BACTERIA TRACE Normal NONE [facility] Comment on above: Order Comment: Campu s: M Performed By: #### L 600.29171 #### [facility] [address] [place] [address] UA BILIRUBIN Negative Normal NEGATIVE [facility] Comment on above: Order Comment: Campu s: M Performed By: #### L 600.96490 #### [facility] [address] [place] [id number] UA BLOOD MOD Normal NEGATIVE [facility] Comment on above: Order Comment: Campu s: M Performed By: #### L 600.08596 #### [facility] [address] [id number] UA KETONE Negative Normal NEGATIVE [facility] Comment on above: Order Comment: Campu s: M Performed By: #### L 600.52555 #### [facility] [address] [place] [address] UA LK ESTERASE Negative Normal NEGATIVE [facility] Comment on above: Order Comment: Campu s: M Performed By: #### L 600.36260 #### [facility] [address] [place] [address] UA NITRITE Negative Normal NEGATIVE [facility] Comment on above: Order Comment: Campu s: M Performed By: #### L 600.69510 #### [facility] [address] [place] [address] UA PH 6.0 Normal 5-6 [facility] Comment on above: Order Comment: Campu s: M Performed By: #### L 600.82711 #### [facility] [address] [place] [address] UA PROTEIN Negative Normal NEGATIVE [facility] Comment on above: Order Comment: Campu s: M Performed By: #### L 600.67380 #### [facility] [address] [place] [address] UA RBC 45 RBC/HPF High 0-3 [facility] Comment on above: Order Comment: Campu s: M Performed By: #### L 600.64683 #### [facility] [place] [address] UA SPEC GRAV 1.013 Normal 1.005-1.030 [facility] Comment on above: Order Comment: Campu s: M Performed By: #### L 600.53720 #### [facility] [place] [address] UA UROBILINOGEN Negative Normal NORMAL [facility] Comment on above: Order Comment: Campu s: M Performed By: #### L 600.59962 #### [facility] [address] [place] [address] UA WBC 4 WBC/HPF Normal 0-5 [facility] Comment on above: Order Comment: Campu s: M Performed By: #### L 600.57021 #### [facility] [address] [place] [address] PTH, Intacton 07-05-2021 PTH, Intact 117 pg/mL High 15-65 [facility] Comment on above: Performed By: #### P THI #### [facility] Routine Lab [address] [place], [place] [address] PTH, Intacton 01-25-2021 PTH, Intact 73 pg/mL High 15-65 [facility] Comment on above: Performed By: #### P THI #### [facility] Routine Lab [address] [place], [place] [address] PTH, Intacton 10-08-2020 PTH, Intact 57 pg/mL Normal 15-65 [facility] Comment on above: Performed By: #### P THI #### [facility] Routine Lab [address] [place], [place] [address] COVID-19, MOLECULARon 2020 SARS-COV-2 ([employer]) Not Detected Normal Not Detected [facility] Comment on above: Order Comment: : COV ID-19 Lab Test Only (OP in [facility]) Tier 2 EGD - Dr. Messi Mae Result Comment: This test was performed under the FDA's Emergency Use Authorization (EUA). Testing was performed using the Simplexa SARS-CoV-2 RT-PCR assay ([employer]) on the [employer] MDX platform. This test has not been approved for use in asymptomatic patients and its performance in this patient population has not been evaluated. Negative results do not rule out the presence of SARS-CoV-2/COVID-19. Fact sheets for this EUA can be found at the following links: For Healthcare Providers: https://www.fda.gov/media/671331/download For Patients: https://www.fda.gov/media/850005/download Performed By: #### L [id number] #### [facility] [address] [address] Vu Metcalf M.D. [id number] COVID-19, MOLECULARon 2019 SARS-COV-2 RNA (SEVERIAN[employer]) Not Detected Normal Not Detected [facility] Comment on above: Result Comment: This test [...] at the following links: For Healthcare Providers: https://www.fda.gov/media/299599/download For Patients: https://www.fda.gov/media/845659/download Performed By: #### L [id number] #### [facility] [address] [place] [address] Vu Metcalf M.D. [id number] Basic Metabolic Panel 12-2 Anion gap [Moles/Vol] 16 mmol/L 10 - 2 0 mmol/L [facility] Calcium [Mass/Vol] 7.8 mg/dL Low 8.4 - 10. 2 mg/dL [facility] Chloride [Moles/Vol] 114 mmol/L High 98 - 10 8 mmol/L [facility] Creatinine [Mass/Vol] 1.77 mg/dL High 0.6 - 1.2 mg/dL [facility] GFR/1.73 sq M predicted among non-blacks MDRD (S/P/Bld) [Vol rate/Area] The eGFR should be used for monitoring renal function only and not for medication dosing. [facility] GFR/1.73 sq M.predicted CKD-EPI (S/P/Bld) [Vol rate/Area] 30 Low >=60 mL/min/1.73 m2 [facility] Glucose [Mass/Vol] 118 mg/dL High 65 - 99 mg/dL [facility] HCO3 [Moles/Vol] 17 mmol/L Low 21 - 32 mmol/L [facility] Interpretation and review of laboratory results Abnormal [facility] Potassium [Moles/Vol] 3.5 mmol/L 3.5 - 5.1 mmol/L [facility] Sodium [Moles/Vol] 143 mmol/L 135 - 145 mmol/L [facility] Urea nitrogen [Mass/Vol] 10 mg/dL 8 - 25 mg/dL [facility] Urea nitrogen/Creatinine [Mass ratio] 5.6 mg/mg Low [facility] Basic Metabolic Panelon 05-28 Anion gap [Moles/Vol] 15 mmol/L 10 - 2 0 mmol/L [facility] Calcium [Mass/Vol] 7.7 mg/dL Low 8.4 - 10. 2 mg/dL [facility] Chloride [Moles/Vol] 115 mmol/L High 98 - 10 8 mmol/L [facility] Creatinine [Mass/Vol] 1.62 mg/dL High 0.6 - 1.2 mg/dL [facility] GFR/1.73 sq M predicted among non-blacks MDRD (S/P/Bld) [Vol rate/Area] The eGFR should be used for monitoring renal function only and not for medication dosing. [facility] GFR/1.73 sq M.predicted CKD-EPI (S/P/Bld) [Vol rate/Area] 34 Low >=60 mL/min/1.73 m2 [facility] Glucose [Mass/Vol] 119 mg/dL High 65 - 99 mg/dL [facility] HCO3 [Moles/Vol] 16 mmol/L Low 21 - 32 mmol/L [facility] Interpretation and review of laboratory results Abnormal [facility] Potassium [Moles/Vol] 3.3 mmol/L Low 3.5 - 5.1 mmol/L [facility] Sodium [Moles/Vol] 143 mmol/L 135 - 145 mmol/L [facility] Urea nitrogen [Mass/Vol] 11 mg/dL 8 - 25 mg/dL [facility] Urea nitrogen/Creatinine [Mass ratio] 6.8 mg/mg Low [facility] Phosphoruson 06-22-2019 Interpretation and review of laboratory results Normal [facility] Phosphate [Mass/Vol] 2.9 mg/dL 2.8 - 4 .1 mg/dL [facility] Basic Metabolic Panelon 05-28 Anion gap [Moles/Vol] 13 mmol/L 10 - 2 0 mmol/L [facility] Calcium [Mass/Vol] 8.0 mg/dL Low 8.4 - 10. 2 mg/dL [facility] Chloride [Moles/Vol] 117 mmol/L High 98 - 10 8 mmol/L [facility] Creatinine [Mass/Vol] 1.91 mg/dL High 0.6 - 1.2 mg/dL [facility] GFR/1.73 sq M predicted among non-blacks MDRD (S/P/Bld) [Vol rate/Area] The eGFR should be used for monitoring renal function only and not for medication dosing. [facility] GFR/1.73 sq M.predicted CKD-EPI (S/P/Bld) [Vol rate/Area] 28 Low >=60 mL/min/1.73 m2 [facility] Glucose [Mass/Vol] 118 mg/dL High 65 - 99 mg/dL [facility] HCO3 [Moles/Vol] 21 mmol/L 21 - 32 mmol/L [facility] Interpretation and review of laboratory results Abnormal [facility] Potassium [Moles/Vol] 3.6 mmol/L 3.5 - 5.1 mmol/L [facility] Sodium [Moles/Vol] 147 mmol/L High 135 - 145 mmol/L [facility] Urea nitrogen [Mass/Vol] 15 mg/dL 8 - 25 mg/dL [facility] Urea nitrogen/Creatinine [Mass ratio] 7.9 mg/mg Low [facility] CBCon 06-21-2019 Erythrocyte distribution width (RBC) [Entitic vol] 13.7 % 11.6 - 14.8 % [facility] Hematocrit (Bld) [Volume fraction] 30.2 % Low 36 - 46 % [facility] Hemoglobin (Bld) [Mass/Vol] 9.2 g/dL Low 12 - 16 g/dL [facility] Interpretation and review of laboratory results Abnormal [facility] MCH (RBC) [Entitic mass] 29.0 pg 26 - 34 pg [facility] MCHC (RBC) [Mass/Vol] 30.5 g/dL Low 31 - 37 g/dL [facility] MCV (RBC) [Entitic vol] 95.3 fL 80 - 100 fL [facility] Nucleated RBC (Bld) [#/Vol] 0.00 10*3/uL [facility] Nucleated RBC/100 WBC (Bld) [Ratio] 0.0 % [facility] Platelet mean volume (Bld) [Entitic vol] 10.5 fL 9 - 15.5 fL [facility] Platelets (Bld) [#/Vol] 229 10*3/uL [facility] RBC (Bld) [#/Vol] 3.17 10*6/uL Low [facility] WBC (Bld) [#/Vol] 4.29 10*3/uL Low [facility] Magnesium Levelon 06-21-2019 Interpretation and review of laboratory results Normal [facility] Magnesium [Mass/Vol] 2.1 mg/dL 1.6 - 2 .4 mg/dL [facility] Phosphoruson 06-21-2019 Interpretation and review of laboratory results Abnormal [facility] Phosphate [Mass/Vol] 2.6 mg/dL Low 2.8 - 4 .1 mg/dL [facility] XR UGI With Air Contrast [...] contrast material noted. SKS/lab Workstation ID: [id number] [facility] EXAMINATION: XR UGI WITH AIR CONTRAST WITH KUB 06/21/2019 12:06 PM HISTORY: ORDERING SYSTEM PROVIDED HISTORY: evaluate for leakage from Gadiel patch repair, TECHNOLOGIST PROVIDED HISTORY: Illness/Other Reason for exam: evaluate for leakage from Gadiel patch repair Encounter Type: Subsequent/Follow-up Additional signs and symptoms: Fluoro dose in mGy: 222.11 ORDERING SYSTEM PROVIDED DIAGNOSIS CODES: K63.1 Bowel perforation (FORMERLY [facility]) N20.1 Ureterolithiasis N17.9 VICKI (acute kidney injury) (FORMERLY [facility]) N21.1 Urethra, calculus COMPARISON: Supine abdomen 06/18/2019. TECHNIQUE: Overhead aircraft rigging and controls mechanic image was obtained. Spot aircraft rigging and controls mechanic images of the chest and abdomen were [...] No gross leak or extravasation is identified. [facility], Rad In Fu ji Speechq - 06/21/2019 [...] SYSTEM PROVIDED DIAGNOSIS CODES: K63.1 Bowel perforation (FORMERLY [facility]) N20.1 Ureterolithiasis N17.9 VICKI (acute kidney injury) (FORMERLY [facility]) N21.1 Urethra, calculus COMPARISON: Supine abdomen 06/18/2019. TECHNIQUE: Overhead aircraft rigging and controls mechanic image was obtained. Spot aircraft rigging and controls mechanic images of the chest and abdomen were [...] contrast material noted. SKS/lab Workstation ID: [id number] [facility] Basic Metabolic Panelon 05-28 Anion gap [Moles/Vol] 11 mmol/L 10 - 2 0 mmol/L [facility] Calcium [Mass/Vol] 8.2 mg/dL Low 8.4 - 10. 2 mg/dL [facility] Chloride [Moles/Vol] 118 mmol/L High 98 - 10 8 mmol/L [facility] Creatinine [Mass/Vol] 2.05 mg/dL High 0.6 - 1.2 mg/dL [facility] GFR/1.73 sq M predicted among non-blacks MDRD (S/P/Bld) [Vol rate/Area] The eGFR should be used for monitoring renal function only and not for medication dosing. [facility] GFR/1.73 sq M.predicted CKD-EPI (S/P/Bld) [Vol rate/Area] 25 Low >=60 mL/min/1.73 m2 [facility] Glucose [Mass/Vol] 130 mg/dL High 65 - 99 mg/dL [facility] HCO3 [Moles/Vol] 22 mmol/L 21 - 32 mmol/L [facility] Interpretation and review of laboratory results Abnormal [facility] Potassium [Moles/Vol] 3.3 mmol/L Low 3.5 - 5.1 mmol/L [facility] Sodium [Moles/Vol] 148 mmol/L High 135 - 145 mmol/L [facility] Urea nitrogen [Mass/Vol] 19 mg/dL 8 - 25 mg/dL [facility] Urea nitrogen/Creatinine [Mass ratio] 9.3 mg/mg Low [facility] CBCon 06-20-2019 Erythrocyte distribution width (RBC) [Entitic vol] 14.2 % 11.6 - 14.8 % [facility] Hematocrit (Bld) [Volume fraction] 29.8 % Low 36 - 46 % [facility] Hemoglobin (Bld) [Mass/Vol] 9.2 g/dL Low 12 - 16 g/dL [facility] Interpretation and review of laboratory results Abnormal [facility] MCH (RBC) [Entitic mass] 29.5 pg 26 - 34 pg [facility] MCHC (RBC) [Mass/Vol] 30.9 g/dL Low 31 - 37 g/dL [facility] MCV (RBC) [Entitic vol] 95.5 fL 80 - 100 fL [facility] Nucleated RBC (Bld) [#/Vol] 0.00 10*3/uL [facility] Nucleated RBC/100 WBC (Bld) [Ratio] 0.0 % [facility] Platelet mean volume (Bld) [Entitic vol] 10.6 fL 9 - 15.5 fL [facility] Platelets (Bld) [#/Vol] 245 10*3/uL [facility] RBC (Bld) [#/Vol] 3.12 10*6/uL Low [facility] WBC (Bld) [#/Vol] 5.32 10*3/uL [facility] Imm/Pathon 06-20-2019 Bacteria identified Cx Nom (Bld) [facility]2019 Interpretation and review of laboratory results Normal [facility] Magnesium [Mass/Vol] 1.9 mg/dL 1.6 - 2 .4 mg/dL [facility] Basic Metabolic Panelon 05-28 Anion gap [Moles/Vol] 12 mmol/L 10 - 2 0 mmol/L [facility] Calcium [Mass/Vol] 8.3 mg/dL Low 8.4 - 10. 2 mg/dL [facility] Chloride [Moles/Vol] 117 mmol/L High 98 - 10 8 mmol/L [facility] Creatinine [Mass/Vol] 2.07 mg/dL High 0.6 - 1.2 mg/dL [facility] GFR/1.73 sq M predicted among non-blacks MDRD (S/P/Bld) [Vol rate/Area] The eGFR should be used for monitoring renal function only and not for medication dosing. [facility] GFR/1.73 sq M.predicted CKD-EPI (S/P/Bld) [Vol rate/Area] 25 Low >=60 mL/min/1.73 m2 [facility] Glucose [Mass/Vol] 126 mg/dL High 65 - 99 mg/dL [facility] HCO3 [Moles/Vol] 21 mmol/L 21 - 32 mmol/L [facility] Interpretation and review of laboratory results Abnormal [facility] Potassium [Moles/Vol] 3.6 mmol/L 3.5 - 5.1 mmol/L [facility] Comment on above: Slightly Hemolyzed Sodium [Moles/Vol] 146 mmol/L High 135 - 145 mmol/L [facility] Urea nitrogen [Mass/Vol] 24 mg/dL 8 - 25 mg/dL [facility] Urea nitrogen/Creatinine [Mass ratio] 11.6 mg/mg [facility] CBCon 06-19-2019 Erythrocyte distribution width (RBC) [Entitic vol] 14.3 % 11.6 - 14.8 % [facility] Hematocrit (Bld) [Volume fraction] 29.1 % Low 36 - 46 % [facility] Hemoglobin (Bld) [Mass/Vol] 9.2 g/dL Low 12 - 16 g/dL [facility] Interpretation and review of laboratory results Abnormal [facility] MCH (RBC) [Entitic mass] 29.5 pg 26 - 34 pg [facility] MCHC (RBC) [Mass/Vol] 31.6 g/dL 31 - 37 g/dL [facility] MCV (RBC) [Entitic vol] 93.3 fL 80 - 100 fL [facility] Nucleated RBC (Bld) [#/Vol] 0.00 10*3/uL [facility] Nucleated RBC/100 WBC (Bld) [Ratio] 0.0 % [facility] Platelet mean volume (Bld) [Entitic vol] 10.7 fL 9 - 15.5 fL [facility] Platelets (Bld) [#/Vol] 243 10*3/uL [facility] RBC (Bld) [#/Vol] 3.12 10*6/uL Low [facility] WBC (Bld) [#/Vol] 5.92 10*3/uL [facility] H. pylori Antigen, Stoolon 1 08-20-2018 H. pylori Ag IA Ql (Stl) Negative Negative [facility] Comment on above: Test Performed by: [address] [address] Telehealth Nurse Educator: Brad Coley M.D. Ph.D.; CLIA# [id number] Basic Metabolic Panelon 12- Anion gap [Moles/Vol] 12 mmol/L 10 - 2 0 mmol/L [facility] Calcium [Mass/Vol] 8.2 mg/dL Low 8.4 - 10. 2 mg/dL [facility] Chloride [Moles/Vol] 115 mmol/L High 98 - 10 8 mmol/L [facility] Creatinine [Mass/Vol] 2.38 mg/dL High 0.6 - 1.2 mg/dL [facility] GFR/1.73 sq M predicted among non-blacks MDRD (S/P/Bld) [Vol rate/Area] The eGFR should be used for monitoring renal function only and not for medication dosing. [facility] GFR/1.73 sq M.predicted CKD-EPI (S/P/Bld) [Vol rate/Area] 21 Low >=60 mL/min/1.73 m2 [facility] Glucose [Mass/Vol] 142 mg/dL High 65 - 99 mg/dL [facility] HCO3 [Moles/Vol] 21 mmol/L 21 - 32 mmol/L [facility] Interpretation and review of laboratory results Abnormal [facility] Potassium [Moles/Vol] 4.4 mmol/L 3.5 - 5.1 mmol/L [facility] Sodium [Moles/Vol] 144 mmol/L 135 - 145 mmol/L [facility] Urea nitrogen [Mass/Vol] 33 mg/dL High 8 - 25 mg/dL [facility] Urea nitrogen/Creatinine [Mass ratio] 13.9 mg/mg [facility] CBCon 06-18-2019 Erythrocyte distribution width (RBC) [Entitic vol] 14.6 % 11.6 - 14.8 % [facility] Hematocrit (Bld) [Volume fraction] 29.1 % Low 36 - 46 % [facility] Hemoglobin (Bld) [Mass/Vol] 9.2 g/dL Low 12 - 16 g/dL [facility] Interpretation and review of laboratory results Abnormal [facility] MCH (RBC) [Entitic mass] 29.2 pg 26 - 34 pg [facility] MCHC (RBC) [Mass/Vol] 31.6 g/dL 31 - 37 g/dL [facility] MCV (RBC) [Entitic vol] 92.4 fL 80 - 100 fL [facility] Nucleated RBC (Bld) [#/Vol] 0.00 10*3/uL [facility] Nucleated RBC/100 WBC (Bld) [Ratio] 0.0 % [facility] Platelet mean volume (Bld) [Entitic vol] 10.6 fL 9 - 15.5 fL [facility] Platelets (Bld) [#/Vol] 229 10*3/uL [facility] RBC (Bld) [#/Vol] 3.15 10*6/uL Low [facility] WBC (Bld) [#/Vol] 7.00 10*3/uL [facility] XR ABDOMEN 1 VIEWon 06-18-20 19 [...] opacifying the entire colon, including the rectum. [employer] Workstation ID: [id number] [facility] EXAMINATION: XR ABDO MEN /KUB/FLAT [...] seen projecting over the right upper abdomen. [facility] Nasogastric tube is seen in place with distal tip projecting over the expected location of the proximal stomach. Advancing at least 8-10 cm is recommended. Contrast is seen opacifying the entire colon, including the rectum. [employer] Workstation ID: [id number] [facility] XR UGI With [employer] 06-18-2019 Interface, Rad In Fu ji Speechq - 06/18/2019 3:59 PM EST EXAMINATION: XR UGI WITH KUB 06/15/2019 11:12 PM HISTORY: ORDERING SYSTEM PROVIDED HISTORY: r/o for duodenal perforation, TECHNOLOGIST PROVIDED HISTORY: Illness/Other Reason for exam: r/o for duodenal perforation Encounter Type: Unknown Additional signs and symptoms: r/o for duodenal perforation Fluoro dose in mGy: 178 ORDERING SYSTEM PROVIDED DIAGNOSIS CODES: K63.1 Bowel perforation (FORM[facility]LY [facility]) N20.1 Ureterolithiasis COMPARISON: CT of the abdomen and pelvis, 06/15/2019, from an outside institution. TECHNIQUE: The patient was premedicated for contrast reaction per the emergent protocol. Preliminary aircraft rigging and controls mechanic view of the abdomen and pelvis was acquired prior to the exam. Water-soluble contrast was administered orally under fluoroscopy. Multiple spot images of the upper gastrointestinal tract were acquired in various projections. FINDINGS: Preliminary aircraft rigging and controls mechanic view reveals a nonspecific bowel gas pattern [...] compared to the prior CT of 06/15/2019. [employer] Workstation ID: [id number] [facility] EXAMINATION: XR UGI WITH KUB [...] contrast reaction per the emergent protocol. Preliminary aircraft rigging and controls mechanic view of the abdomen and pelvis was acquired prior to the exam. Water-soluble contrast was administered orally under fluoroscopy. Multiple spot images of the upper gastrointestinal tract were acquired in various projections. FINDINGS: Preliminary aircraft rigging and controls mechanic view reveals a nonspecific bowel gas pattern [...] Garcia at the time of the procedure. [facility] 1. Perforation of th e first segment of the duodenum with extraluminal contrast extravasation tracking towards the kathy hepatis. 2. Pneumoperitoneum, increased compared to the prior CT of 06/15/2019. [employer] Workstation ID: [id number] [facility] Basic Metabolic Panelon 05-28 Anion gap [Moles/Vol] 14 mmol/L 10 - 2 0 mmol/L [facility] Calcium [Mass/Vol] 7.8 mg/dL Low 8.4 - 10. 2 mg/dL [facility] Chloride [Moles/Vol] 113 mmol/L High 98 - 10 8 mmol/L [facility] Creatinine [Mass/Vol] 2.88 mg/dL High 0.6 - 1.2 mg/dL [facility] GFR/1.73 sq M predicted among non-blacks MDRD (S/P/Bld) [Vol rate/Area] The eGFR should be used for monitoring renal function only and not for medication dosing. [facility] GFR/1.73 sq M.predicted CKD-EPI (S/P/Bld) [Vol rate/Area] 17 Low >=60 mL/min/1.73 m2 [facility] Glucose [Mass/Vol] 105 mg/dL High 65 - 99 mg/dL [facility] HCO3 [Moles/Vol] 15 mmol/L Low 21 - 32 mmol/L [facility] Interpretation and review of laboratory results Abnormal [facility] Potassium [Moles/Vol] 3.9 mmol/L 3.5 - 5.1 mmol/L [facility] Sodium [Moles/Vol] 138 mmol/L 135 - 145 mmol/L [facility] Urea nitrogen [Mass/Vol] 44 mg/dL High 8 - 25 mg/dL [facility] Urea nitrogen/Creatinine [Mass ratio] 15.3 mg/mg [facility] CBCon 06-17-2019 Erythrocyte distribution width (RBC) [Entitic vol] 14.3 % 11.6 - 14.8 % [facility] Hematocrit (Bld) [Volume fraction] 27.8 % Low 36 - 46 % [facility] Hemoglobin (Bld) [Mass/Vol] 9.2 g/dL Low 12 - 16 g/dL [facility] Interpretation and review of laboratory results Abnormal [facility] MCH (RBC) [Entitic mass] 30.0 pg 26 - 34 pg [facility] MCHC (RBC) [Mass/Vol] 33.1 g/dL 31 - 37 g/dL [facility] MCV (RBC) [Entitic vol] 90.6 fL 80 - 100 fL [facility] Nucleated RBC (Bld) [#/Vol] 0.00 10*3/uL [facility] Nucleated RBC/100 WBC (Bld) [Ratio] 0.0 % [facility] Platelet mean volume (Bld) [Entitic vol] 10.4 fL 9 - 15.5 fL [facility] Platelets (Bld) [#/Vol] 216 10*3/uL [facility] RBC (Bld) [#/Vol] 3.07 10*6/uL Low [facility] WBC (Bld) [#/Vol] 8.69 10*3/uL [facility] ECG 12-LEADon 06-17-2019 Atrial Rate 67 BPM [facility] P [place] 38 degrees [facility] P-R Interval 150 ms [facility] Q-T Interval 404 ms [facility] QRS Duration 84 ms [facility] QTC Calculation (Bezet) 426 ms [facility] R [place] -13 degrees [facility] T [place] 34 degrees [facility] Ventricular Rate 67 BPM [facility] Normal sinus rhythm Low voltage QRS Borderline ECG Confirmed by Sherif Cervantes M.D. ([id number]) on 06/17/2019 10:14:10 PM [facility] Atrial Rate 68 BPM [facility] P [place] 42 degrees [facility] P-R Interval 146 ms [facility] Q-T Interval 404 ms [facility] QRS Duration 86 ms [facility] QTC Calculation (Bezet) 429 ms [facility] R [place] -13 degrees [facility] T [place] 36 degrees [facility] Ventricular Rate 68 BPM [facility] Normal sinus rhythm Low voltage QRS Borderline ECG Confirmed by Sherif Cervantes M.D. ([id number]) on 06/17/2019 10:14:09 PM [facility] Basic Metabolic Panelon 12-2 Anion gap [Moles/Vol] 17 mmol/L 10 - 2 0 mmol/L [facility] Calcium [Mass/Vol] 8.4 mg/dL 8.4 - 10. 2 mg/dL [facility] Chloride [Moles/Vol] 110 mmol/L High 98 - 10 8 mmol/L [facility] Creatinine [Mass/Vol] 3.25 mg/dL High 0.6 - 1.2 mg/dL [facility] GFR/1.73 sq M predicted among non-blacks MDRD (S/P/Bld) [Vol rate/Area] The eGFR should be used for monitoring renal function only and not for medication dosing. [facility] GFR/1.73 sq M.predicted CKD-EPI (S/P/Bld) [Vol rate/Area] 15 Low >=60 mL/min/1.73 m2 [facility] Glucose [Mass/Vol] 172 mg/dL High 65 - 99 mg/dL [facility] HCO3 [Moles/Vol] 12 mmol/L Low 21 - 32 mmol/L [facility] Interpretation and review of laboratory results Abnormal [facility] Potassium [Moles/Vol] 4.8 mmol/L 3.5 - 5.1 mmol/L [facility] Sodium [Moles/Vol] 134 mmol/L Low 135 - 145 mmol/L [facility] Urea nitrogen [Mass/Vol] 57 mg/dL High 8 - 25 mg/dL [facility] Urea nitrogen/Creatinine [Mass ratio] 17.5 mg/mg [facility] CBCon 06-16-2019 Erythrocyte distribution width (RBC) [Entitic vol] 14.1 % 11.6 - 14.8 % [facility] Hematocrit (Bld) [Volume fraction] 32.3 % Low 36 - 46 % [facility] Hemoglobin (Bld) [Mass/Vol] 10.8 g/dL Low 12 - 16 g/dL [facility] Interpretation and review of laboratory results Abnormal [facility] MCH (RBC) [Entitic mass] 30.0 pg 26 - 34 pg [facility] MCHC (RBC) [Mass/Vol] 33.4 g/dL 31 - 37 g/dL [facility] MCV (RBC) [Entitic vol] 89.7 fL 80 - 100 fL [facility] Nucleated RBC (Bld) [#/Vol] 0.00 10*3/uL [facility] Nucleated RBC/100 WBC (Bld) [Ratio] 0.0 % [facility] Platelet mean volume (Bld) [Entitic vol] 11.1 fL 9 - 15.5 fL [facility] Platelets (Bld) [#/Vol] 275 10*3/uL [facility] RBC (Bld) [#/Vol] 3.60 10*6/uL Low [facility] WBC (Bld) [#/Vol] 12.93 10*3/uL High [facility] Urine Aerobic Cultureon 05-28 Bacteria identified Aer cx Nom (Unsp spec) One or more organisms < 10,000 CFU/mL of normal urogenital microbiota. Not processed further. [facility] ABORH VERIFICATIONon 019 ABO and Rh group Nom (Bld) ABO/Rh Verification [facility] ABO and Rh group Nom (Bld) B Positive [facility] Patient's ABO/Rh is verified. [facility] BMPon 06-15-2019 Anion gap [Moles/Vol] 20 mmol/L 10 - 2 0 mmol/L [facility] Calcium [Mass/Vol] 8.4 mg/dL 8.4 - 10. 2 mg/dL [facility] Chloride [Moles/Vol] 106 mmol/L 98 - 10 8 mmol/L [facility] Creatinine [Mass/Vol] 3.65 mg/dL High 0.6 - 1.2 mg/dL [facility] GFR/1.73 sq M predicted among non-blacks MDRD (S/P/Bld) [Vol rate/Area] The eGFR should be used for monitoring renal function only and not for medication dosing. [facility] GFR/1.73 sq M.predicted CKD-EPI (S/P/Bld) [Vol rate/Area] 13 Low >=60 mL/min/1.73 m2 [facility] Glucose [Mass/Vol] 158 mg/dL High 65 - 99 mg/dL [facility] HCO3 [Moles/Vol] 13 mmol/L Low 21 - 32 mmol/L [facility] Interpretation and review of laboratory results Abnormal [facility] Potassium [Moles/Vol] 5.1 mmol/L 3.5 - 5.1 mmol/L [facility] Sodium [Moles/Vol] 134 mmol/L Low 135 - 145 mmol/L [facility] Urea nitrogen [Mass/Vol] 62 mg/dL High 8 - 25 mg/dL [facility] Urea nitrogen/Creatinine [Mass ratio] 17.0 mg/mg [facility] CBC WITH AUTO DIFFERENTIALon 06-15-2019 Basophils (Bld) [#/Vol] 0.04 10*3/uL [facility] Basophils/100 WBC (Bld) 0.2 % [facility] Eosinophils (Bld) [#/Vol] 0.00 10*3/uL [facility] Eosinophils/100 WBC (Bld) 0.0 % [facility] Erythrocyte distribution width (RBC) [Entitic vol] 14.1 % 11.6 - 14.8 % [facility] Hematocrit (Bld) [Volume fraction] 38.9 % 36 - 46 % [facility] Hemoglobin (Bld) [Mass/Vol] 12.6 g/dL 12 - 16 g/dL [facility] Immature granulocytes (Bld) [#/Vol] 0.13 10*3/uL [facility] Immature granulocytes/100 WBC (Bld) 0.60 % [facility] Comment on above: The IG parameter is the percentage of metamyelocytes, myelocytes, and promyelocytes. Interpretation and review of laboratory results Abnormal [facility] Lymphocytes (Bld) [#/Vol] 0.34 10*3/uL Low [facility] Lymphocytes/100 WBC (Bld) 1.5 % [facility] MCH (RBC) [Entitic mass] 29.2 pg 26 - 34 pg [facility] MCHC (RBC) [Mass/Vol] 32.4 g/dL 31 - 37 g/dL [facility] MCV (RBC) [Entitic vol] 90.0 fL 80 - 100 fL [facility] Monocytes (Bld) [#/Vol] 1.29 10*3/uL High [facility] Monocytes/100 WBC (Bld) 5.7 % [facility] Neutrophils (Bld) [#/Vol] 20.85 10*3/uL High [facility] Neutrophils/100 WBC (Bld) 92.0 % [facility] Nucleated RBC (Bld) [#/Vol] 0.00 10*3/uL [facility] Nucleated RBC/100 WBC (Bld) [Ratio] 0.0 % [facility] Platelet mean volume (Bld) [Entitic vol] 10.6 fL 9 - 15.5 fL [facility] Platelets (Bld) [#/Vol] 302 10*3/uL [facility] RBC (Bld) [#/Vol] 4.32 10*6/uL [facility] WBC (Bld) [#/Vol] 22.65 10*3/uL [facility] CT COMPARISON IMPORTon 06-15 This order has been auto-finalized and does not contain a result. [facility] 06/15/2019 7:[address] This order has been auto-finalized and does not contain a result. [facility] Hepatic Function Panel (LFT) on 06-15-2019 Albumin [Mass/Vol] 3.5 g/dL 3.2 - 5.2 g/dL [facility] ALP [Catalytic activity/Vol] 82 U/L 40 - 150 U/L [facility] ALT [Catalytic activity/Vol] 16 U/L 0 - 40 U/L [facility] AST [Catalytic activity/Vol] 14 U/L 0 - 45 U/L [facility] Bilirubin [Mass/Vol] mg/dL 0 - 1.3 mg/dL [facility] Bilirubin.conjugated [Mass/Vol] mg/dL 0 - 0.4 mg/dL [facility] Interpretation and review of laboratory results Normal [facility] Protein [Mass/Vol] 6.8 g/dL 6 - 8 g/dL [facility] alth Lactic Acid, Plasmaon 2018 Interpretation and review of laboratory results Normal [facility] Lactate [Moles/Vol] 1.2 mmol/L 0.6 - 2 mmol/L [facility] Otheron 06-15-2019 Extra Tube Hold for add-ons. [facility] Comment on above: Auto resulted. PT/INRon 06-15-2019 INR Coag (PPP) [Relative time] 1.2 {INR} High [facility] Interpretation and review of laboratory results Abnormal [facility] PT Coag (PPP) [Time] 14.5 s [facility] During the induction phase of oral anticoagulation, the INR may not reflect the anticoagulation status of the patient. Therapeutic ranges for INR's are: Most clinical situations: INR 2.0-3.0 Mechanical Prosthetic Valve: INR 2.5-3.5 Critical: INR >5.0 [facility] Type and Screenon 06-15-2019 ABO and Rh group Nom (Bld) B Positive [facility] Blood group antibody screen Ql Negative [facility] Specimen Expires 06/18/2019 23:59 EST [facility] URINALYSISon 06-15-2019 Bacteria Auto Ql (U) Many Abnormal None Se en /hpf [facility] Bilirubin Ql (U) Negative Negative [facility] Clarity Refractometry automated (U) Cloudy Abnormal Clear [facility] Color (U) Ada Abnormal Colorless, Yellow [facility] Glucose Auto test strip (U) [Mass/Vol] 50 Abnormal Negative mg/dL [facility] Hemoglobin Auto test strip Ql (U) Large Abnormal Negative [facility] Interpretation and review of laboratory results Abnormal [facility] Ketones (U) [Mass/Vol] Trace Abnormal Negative mg/dL [facility] Leukocyte clumps Auto (Urine sed) [#/Area] Many Abnormal None Seen /hpf [facility] Leukocyte esterase Auto test strip Ql (U) Large Abnormal Negative [facility] Nitrite Auto test strip Ql (U) Negative Negative [facility] pH (U) 6.0 [pH] [facility] Protein (U) [Mass/Vol] 100 Abnormal Negative mg/dL [facility] RBC Auto (Urine sed) [#/Area] >180 High [facility] Specific gravity (U) [Rel density] 1.012 [facility] Urobilinogen (U) [Mass/Vol] <2.0 <2.0 mg/dL [facility] WBC Auto (Urine sed) [#/Area] >180 High [facility] Microscopic examinat ion is performed on all urinalysis samples and only positive findings are reported. The test for blood on the chemical analytic portion of urinalysis may also be positive due to hemoglobinuria and myoglobinuria and if red blood cells are present they are quantified by microscopic examination. [facility] Vital Signs Date Time Vital Sign Value Performing Clinician Facility 01-29-2025 10:10-0400 Body height 160.[address] Kandace Katz MD Work Phone: [facility] 01-29-2025 10:10-0400 Body mass index (BMI) [Ratio] 43.5 kg/m2 Dr. Kandace Katz MD Work Phone: [facility] 01-29-2025 10:10-0400 Body weight 111.[address] Kandace Katz MD Work Phone: [facility] 01-29-2025 10:10-0400 Diastolic blood pressure 78 mm[Hg] Dr. Kandace Katz MD Work Phone: [facility] 01-29-2025 10:10-0400 Heart rate 82 /min Dr. Kandace Katz MD Work Phone: [facility] 01-29-2025 10:10-0400 SaO2% (BldA) [Mass fraction] 95 % Dr. Knadace Katz MD Work Phone: [facility] 01-29-2025 10:10-0400 Systolic blood pressure 130 mm[Hg] Dr. Kandace Katz MD Work Phone: [facility] 12-26-2024 07:45-0400 Body temperature 97.3 [degF] Dr. Kandace Katz MD Work Phone: [facility] 12-26-2024 07:45-0400 Diastolic blood pressure 74 mm[Hg] Dr. Kandace Katz MD Work Phone: [facility] 12-26-2024 07:45-0400 Heart rate 67 /min Dr. Kandace Katz MD Work Phone: [facility] 12-26-2024 07:45-0400 Respiratory rate 14 /min Dr. Kandace Katz MD Work Phone: [facility] 12-26-2024 07:45-0400 SaO2% (BldA) [Mass fraction] 95 % Dr. Kandace Katz MD Work Phone: [facility] 12-26-2024 07:45-0400 Systolic blood pressure 119 mm[Hg] Dr. Kandace Katz MD Work Phone: [facility] 12-26-2024 06:24-0400 Body height 160.[address] Kandace Katz MD Work Phone: [facility] 12-26-2024 06:24-0400 Body mass index (BMI) [Ratio] 42.6 kg/m2 Dr. Kandace Katz MD Work Phone: [facility] 12-26-2024 06:24-0400 Body weight 109.[address] Kandace Katz MD Work Phone: [facility] 11-13-2024 12:29-0400 Body height 160.[address] Kandace Katz MD Work Phone: [facility] 11-13-2024 12:29-0400 Body mass index (BMI) [Ratio] 42.8 kg/m2 Dr. Kandace Katz MD Work Phone: [facility] 11-13-2024 12:29-0400 Body weight 109.[address] Kandace Katz MD Work Phone: [facility] 11-13-2024 12:29-0400 Diastolic blood pressure 84 mm[Hg] Dr. Kandace Katz MD Work Phone: [facility] 11-13-2024 12:29-0400 Heart rate 68 /min Dr. Kandace Katz MD Work Phone: [facility] 11-13-2024 12:29-0400 SaO2% (BldA) [Mass fraction] 95 % Dr. Kandace Katz MD Work Phone: [facility] 11-13-2024 12:29-0400 Systolic blood pressure 134 mm[Hg] Dr. Kandace Katz MD Work Phone: [facility] 09-25-2024 10:39-0400 Body mass index (BMI) [Ratio] 41.3 kg/m2 Dr. Kandace Katz MD Work Phone: [facility] 09-25-2024 10:39-0400 Body weight 105.[address] Kandace Katz MD Work Phone: [facility] 09-25-2024 10:39-0400 Diastolic blood pressure 83 mm[Hg] Dr. Kandace Katz MD Work Phone: [facility] 09-25-2024 10:39-0400 Heart rate 90 /min Dr. Kandace Katz MD Work Phone: [facility] 09-25-2024 10:39-0400 Respiratory rate 18 /min Dr. Kandace Katz MD Work Phone: [facility] 09-25-2024 10:39-0400 SaO2% (BldA) [Mass fraction] 94 % Dr. Kandace Katz MD Work Phone: [facility] 09-25-2024 10:39-0400 Systolic blood pressure 127 mm[Hg] Dr. Kandace Katz MD Work Phone: [facility] 09-05-2024 08:40-0400 Body temperature 97.9 [degF] Dr. Kandace Katz MD Work Phone: [facility] 09-05-2024 08:40-0400 Diastolic blood pressure 82 mm[Hg] Dr. Kandace Katz MD Work Phone: [facility] 09-05-2024 08:40-0400 Heart rate 60 /min Dr. Kandace Katz MD Work Phone: [facility] 09-05-2024 08:40-0400 Respiratory rate 16 /min Dr. Kandace Katz MD Work Phone: [facility] 09-05-2024 08:40-0400 SaO2% (BldA) [Mass fraction] 100 % Dr. Kandace Katz MD Work Phone: [facility] 09-05-2024 08:40-0400 Systolic blood pressure 132 mm[Hg] Dr. Kandace Katz MD Work Phone: [facility] 09-05-2024 05:50-0400 Body height 160.[address] Kandace Katz MD Work Phone: [facility] 09-05-2024 05:50-0400 Body mass index (BMI) [Ratio] 40.2 kg/m2 Dr. Kandace Katz MD Work Phone: [facility] 09-05-2024 05:50-0400 Body weight [address] Kandace Katz MD Work Phone: [facility] 07-30-2024 13:52-0500 Body mass index (BMI) [Ratio] 42.3 kg/m2 Dr. Kandace Katz MD Work Phone: [facility] 07-30-2024 13:52-0500 Body weight 108.[address] Kandace Katz MD Work Phone: [facility] 07-30-2024 13:52-0500 Diastolic blood pressure 90 mm[Hg] Dr. Kandace Katz MD Work Phone: [facility] 07-30-2024 13:52-0500 Heart rate 69 /min Dr. Kandace Katz MD Work Phone: [facility] 07-30-2024 13:52-0500 Respiratory rate 18 /min Dr. Kandace Katz MD Work Phone: [phone] [place] [address] 07-30-2024 13:52-0500 SaO2% (BldA) [Mass fraction] 97 % Dr. Kandace Katz MD Work Phone: [phone] [place] [address] 07-30-2024 13:52-0500 Systolic blood pressure 144 mm[Hg] Dr. Kandace Katz MD Work Phone: [phone] [place] [address] 07-17-2024 11:11-0500 Body mass index (BMI) [Ratio] 41.5 kg/m2 Dr. Kandace Katz MD Work Phone: [facility] 07-17-2024 11:11-0500 Body weight 106.[address] Kandace Katz MD Work Phone: [facility] 07-17-2024 11:11-0500 Diastolic blood pressure 84 mm[Hg] Dr. Kandace Katz MD Work Phone: [facility] 07-17-2024 11:11-0500 Heart rate 68 /min Dr. Kandace Katz MD Work Phone: [facility] 07-17-2024 11:11-0500 Respiratory rate 16 /min Dr. Kandace Katz MD Work Phone: [facility] 07-17-2024 11:11-0500 SaO2% (BldA) [Mass fraction] 96 % Dr. Kandace Katz MD Work Phone: [facility] 07-17-2024 11:11-0500 Systolic blood pressure 129 mm[Hg] Dr. Kandace Katz MD Work Phone: [facility] 11-04-2021 13:04-0400 Diastolic blood pressure 62 mm[Hg] Dr. Kandace Katz Work Phone: [facility] Work Phone: 11-04-2021 13:04-0400 Heart rate 62 /min Dr. Kandace Katz Work Phone: [facility] Work Phone: 11-04-2021 13:04-0400 Respiratory rate 16 /min Dr. Kandace Katz Work Phone: [facility] Work Phone: 11-04-2021 13:04-0400 SaO2% (BldA) [Mass fraction] 98 % Dr. Kandace Katz Work Phone: [facility] Work Phone: 11-04-2021 13:04-0400 Systolic blood pressure 128 mm[Hg] Dr. Kandace Katz Work Phone: [facility] Work Phone: 11-04-2021 12:25-0400 Body temperature 97.7 [degF] Dr. Kandace Katz Work Phone: [facility] Work Phone: 11-04-2021 09:55-0400 Body height 160.[address] Kandace Katz Work Phone: [facility] Work Phone: 11-04-2021 09:55-0400 Body mass index (BMI) [Ratio] 45.6 kg/m2 Dr. Kandace Katz Work Phone: [facility] Work Phone: 11-04-2021 09:55-0400 Body weight 116.[address] Kandace Katz Work Phone: [facility] Work Phone: 07-29-2020 13:20-0500 BP Diastolic 84 mm[Hg] [facility] 07-29-2020 13:20-0500 BP Systolic 130 mm[Hg] [facility] 07-29-2020 13:20-0500 Pulse (Heart Rate) 71 /min [facility] 07-29-2020 13:20-0500 Pulse Oximetry 99 % [facility] 07-29-2020 13:20-0500 Respiratory Rate 15 /min [facility] 07-29-2020 13:00-0500 Body Temperature 97.7 [degF] [facility] 07-29-2020 11:28-0500 BMI (Body Mass Index) 41.63 kg/m2 [facility] 07-29-2020 11:28-0500 Body weight 106.59 kg [facility] 07-29-2020 11:28-0500 Height 160 cm [facility] 02-21-2020 15:31-0400 BP Diastolic 86 mm[Hg] [facility] 02-21-2020 15:31-0400 BP Systolic 122 mm[Hg] [facility] 02-21-2020 15:31-0400 Pulse (Heart Rate) 61 /min [facility] 02-21-2020 15:31-0400 Pulse Oximetry 96 % [facility] 02-21-2020 15:31-0400 Respiratory Rate 16 /min [facility] 02-21-2020 15:15-0400 Body Temperature 97.2 [degF] [facility] 02-21-2020 13:48-0400 BMI (Body Mass Index) 40.03 kg/m2 [facility] 02-21-2020 13:48-0400 Body weight 102.51 kg [facility] 02-21-2020 13:48-0400 Height 160 cm [facility] 07-10-2019 10:09-0500 BMI (Body Mass Index) 40.51 kg/m2 [facility]ore[facility] 07-10-2019 10:09-0500 Body Temperature 98.29 [degF] [facility] 07-10-2019 10:09-0500 Body weight 103.74 kg [facility] 07-10-2019 10:09-0500 BP Diastolic 73 mm[Hg] [facility] 07-10-2019 10:09-0500 BP Systolic 115 mm[Hg] [facility] 07-10-2019 10:09-0500 Pulse (Heart Rate) 84 /min [facility] 07-10-2019 10:09-0500 Respiratory Rate 14 /min [facility] 06-23-2019 12:45-0500 Respiratory Rate 14 /min [facility] 06-23-2019 07:25-0500 Body Temperature 97.5 [degF] [facility] 06-23-2019 07:25-0500 BP Diastolic 60 mm[Hg] [facility] 06-23-2019 07:25-0500 BP Systolic 91 mm[Hg] [facility] 06-23-2019 07:25-0500 Pulse (Heart Rate) 62 /min [facility] 06-23-2019 07:25-0500 Pulse Oximetry 96 % [facility] 06-15-2019 18:39-0500 BMI (Body Mass Index) 38.97 kg/m2 [facility] 06-15-2019 18:39-0500 Body weight 99.79 kg [facility] 06-15-2019 18:39-0500 Height 160 cm [facility] Encounters Encounter Date Encounter Type Care Provider Facility Start: 02-13-2025 ambulatory Kandace Katz Facility: [facility] Start: 02-11-2025 End: 02-11-2025 ambulatory KANDACE KATZ [facility] Start: 01-31-2025 End: 01-31-[address] Kandace Katz MD Work Phone: -Laboratory Clarissa Arredondo [facility] Start: 01-31-2025 End: 01-31-[address] Kandace Katz MD -Laboratory Clarissa Arredondo [facility] Start: 01-31-2025 End: 01-31-2025 ambulatory Kandace Katz Facility:[facility] Start: 01-29-2025 End: 01-29-[address] Eric Sampson MD -[facility] Work Phone: Start: 01-29-2025 End: 01-29-[address] Kandace Katz MD Work Phone: -[facility] Start: 12-26-2024 End: 12-26-2024 ambulatory Roderickadi Tang Facility:[facility] Start: 12-26-2024 End: 12-26-2024 Non-patient / Non-visit Roderick Tang DO -[facility] Start: 12-26-2024 End: 12-26-2024 Admission to same day surgery center Roderickadi Tang DO -Endoscopy Work Phone: Start: 12-26-2024 End: 12-26-[address] Kandace Katz MD Work Phone: -Endoscopy Start: 11-13-2024 End: 11-13-[address] Eric Sampson MD -[facility] Work Phone: Start: 11-13-2024 End: 11-13-[address] Kandace Katz MD Work Phone: [facility] Work Phone: Start: 11-13-2024 End: 11-13-2024 ambulatory Maxx MARTINEZ Facility:[facility] Start: 10-16-2024 End: 10-16-2024 ambulatory FAITH PADRON Facility:[id number] Start: 09-25-2024 End: 09-25-2024 Patient encounter procedure Babs MORIN -[facility] Work Phone: Start: 09-25-2024 End: 09-25-2024 ambulatory Kandace Katz Facility:[facility] Start: 09-14-2024 End: 09-14-[address] Kandace Katz MD Work Phone: [facility] Work Phone: Start: 09-14-2024 End: 09-14-2024 Patient encounter procedure Babs MORIN -Laboratory Work Phone: Start: 09-14-2024 End: 09-14-2024 ambulatory Kandace Midale Facility:[facility] Start: 09-05-2024 End: 09-05-2024 ambulatory [facility] Facility:[facility] Start: 09-05-2024 End: 09-05-2024 Non-patient / Non-visit Dr. Sandro Bermudez MD -[facility] Work Phone: Start: 09-05-2024 ambulatory Roderick Tang Facility :[facility] Start: 09-05-2024 Non-patient / Non-visit Roderick Makc nd DO -[facility] Start: 09-05-2024 End: 09-05-2024 Admission to same day surgery center Roderick Tang DO -Endoscopy Work Phone: Start: 09-05-2024 End: 09-05-[address] Kandace Katz MD Work Phone: [facility] Work Phone: Start: 09-04-2024 End: 09-04-2024 ambulatory PORSHA TRAMMELL Facility:[id number] Start: 08-06-2024 End: 08-06-2024 ambulatory KANDACE KATZ [facility] Start: 07-30-2024 End: 07-30-[address] Jose Rodríguez MD -Labor[facility], [facility] Start: 07-30-2024 End: 07-30-[address] Jose Rodríguez MD -[facility] Work Phone: Start: 07-30-2024 End: 07-30-2024 ambulatory Jose Rodríguez Facility:[facility] Start: 07-30-2024 End: 07-30-2024 ambulatory Jose Rodríguez Facility:[facility] Start: 07-17-2024 End: 07-17-2024 Patient encounter procedure Babs MORIN -Laboratory Work Phone: Start: 07-17-2024 End: 07-17-2024 Patient encounter procedure Babs MORIN -[facility] Work Phone: Start: 07-17-2024 End: 07-17-2024 ambulatory Kandace Katz Facility:[facility] Start: 07-17-2024 End: 07-17-2024 ambulatory [facility] Facility:[facility] Start: 07-06-2024 End: 07-06-2024 ambulatory [facility] Start: 07-04-2024 End: 07-04-[address] Kandace Katz MD -Outpatient Breast Imaging Work Phone: Start: 07-04-2024 End: 07-04-2024 ambulatory [facility] Facility:[facility] Start: 05-14-2024 End: 05-14-2024 ambulatory PORSHA TRAMMELL [facility] Start: 03-25-2024 ambulatory JULIA SUAREZ [facility] ty:[id number] Start: 03-06-2024 End: 03-06-2024 ambulatory JULIA SUAREZ Facility:[id number] Start: 06-25-2023 End: 06-25-2023 ambulatory [facility] Work Phone: Start: 06-25-2023 End: 06-25-2023 Patient encounter procedure [facility] Work Phone: Start: 10-27-2022 End: 10-27-2022 ambulatory [facility] Work Phone: Start: 10-27-2022 End: 10-27-2022 [facility] Start: 10-14-2022 End: 10-14-2022 ambulatory [facility] Work Phone: Start: 10-14-2022 End: 10-14-2022 Patient encounter procedure [facility] Start: 06-10-2022 End: 06-10-2022 ambulatory [facility] Work Phone: Start: 06-10-2022 End: 06-10-2022 Patient encounter procedure [facility], [place] Start: 11-12-2021 End: 11-12-2021 Subsequent hospital visit by physician Porsha Trammell MD Work Phone: [facility] [place] Comment on above: CALCULUS OF KIDNEY Start: 11-04-2021 Non-patient / Non-visit Dr. Neto Katz Work Phone: [facility] Start: 11-04-2021 End: 11-04-2021 Admission to same day surgery center Dr. Kandace Katz Work Phone: [facility] Start: 10-29-2021 End: 10-29-[address] Kandace Katz Work Phone: [facility] Start: 10-21-2021 End: 10-21-2021 Subsequent hospital visit by physician Mari Chilel MD Work Phone: [facility] [place] Comment on above: HYDRONEPHROSIS, BRYCE L STONES Start: 10-21-2021 End: 10-21-[address] Kandace Katz Work Phone: [facility] Start: 10-20-2021 End: 10-20-[address] Kandace Katz Work Phone: [facility] Start: 10-13-2021 End: 10-13-[address] Kandace Katz Work Phone: [facility] Start: 09-11-2021 Refrachell Love Work Phone: [facility] Start: 09-09-2021 Refill Messi Love Work Phone: [facility] Start: 08-28-2020 End: 08-28-2020 Orders Only Pamelabry Grubbsalejandro Hutchinson Work Phone: [facility] Start: 07-29-2020 End: 07-29-2020 Patient encounter procedure [facility] Start: 07-29-2020 End: 07-29-2020 Subsequent hospital visit by physician Messi Mae Work Phone: [facility] Comment on above: Gastroesophageal ref lux disease with esophagitis and hemorrhage Start: 07-26-2020 End: 07-26-2020 Patient encounter procedure [facility] Start: 07-24-2020 End: 07-24-2020 Transcribe Orders Tasia Lujan [facility] Comment on above: Contact with or expo sure to viral disease (Primary Dx) Start: 02-21-2020 End: 02-21-2020 Patient encounter procedure [facility] Start: 02-21-2020 End: 02-21-2020 Subsequent hospital visit by physician Messi Mae Work Phone: [facility] Start: 02-17-2020 End: 02-17-2020 Patient encounter procedure SAVANNA Eladio LACEY [facility] Start: 02-04-2020 End: 02-04-2020 Documentation procedure Chela Ruano Work Phone: [facility] [place] Start: 09-21-2019 End: 09-21-2019 Patient encounter procedure FERNANDO TO [facility] Start: 09-21-2019 End: 09-21-2019 Patient encounter procedure Fernando To Work Phone: [facility] [place] Comment on above: Follow-up examinatio n, following other surgery (Primary Dx) Start: 09-18-2019 End: 09-18-2019 Patient encounter procedure FERNANDO TO [facility] Start: 09-18-2019 End: 09-18-2019 Patient encounter procedure Fernando Elliottseau Work Phone: [facility] Comment on above: Follow-up examinatio n, following other surgery (Primary Dx) Start: 07-10-2019 End: 07-10-2019 Patient encounter procedure LORENA Graves BEASLEY [facility] Start: 07-10-2019 End: 07-10-2019 Postop follow up visit related to original px Lorena Beasley Work Phone: [facility] Comment on above: Visit for wound chec k (Primary Dx) Start: 06-15-2019 End: 06-23-2019 Evaluation and management of inpatient Marivel Mae Work Phone: [facility] Surgical Unit 3 Comment on above: Bowel perforation (H CC) (Primary Dx); Ureterolithiasis; VICKI (acute kidney injury) (HCC); Urethra, calculus; Perforated duodenal ulcer (HCC); Postoperative pain Procedures Date Procedure Procedure Detail Performing Clinician Start: 01-31-[address] Kandace Katz MD Work Phone: Start: 01-31-[address] Lacy Katz MD Work Phone: Start: 01-31-2025 Vitamin D, 25-hydroxy measurement Dr. Neto Katz MD Work Phone: Comment on above: Vitamin D StatusDeficiency: <20 ng/mL (5 0nmol/L)Insufficiency: 20-30 ng/mL (50-75 nmol/L)Sufficiency: 30-100 ng/mL (75-250 nmol/L)Toxicity: >100 ng/mL (>250 nmol/L) Start: 12-26-[address] Kandace hunter MD Work Phone: Start: 11-13-2024 In-vitro immunologic test Dr. Kandace [...] the productionof interferon gamma. Chemiluminescence immunoassaymethodologyPerformed at: [employer] [id number] Director: Miguel Anaya PhD, Phone: [phone] Start: 09-05-[address] Kandace Katz MD [...] HAVtotal antibody results to IgM (e.g., panel #[id number] HAVAntibody w/ Rfx).Performed at: [address] [id number] Director: Miguel Anaya PhD, Phone: [phone] Start: 07-17-2024 Hepatitis B surface antigen measurement [...] Dr. Kandace Katz MD Work Phone: Start: 06-25-2023 Ultrasonography of abdomen Start: 10-14-2022 Bilateral mammography Start: 10-14-2022 Ultrasonography of breast Start: 06-10-2022 Plain chest X-ray Start: 11-04-2021 End: 11-04-[address] Kandace Katz Work Phone: Start: 11-04-[address] Kandace Katz Work Phone: Start: 10-21-2021 CT of pelvis without contrast Dr. Kandace Katz Work Phone: Start: 10-20-2021 CT of abdomen without contrast Dr. Ada Katz Work Phone: Start: 07-29-2020 Endoscopy of esophagus Messi Mae Work Phone: Start: 02-21-2020 Endoscopy of esophagus Messi Mae Work Phone: Start: 02-21-2020 End: 02-21-2020 Esophagogastroduodenoscopy Messi Mae Work Phone: Start: 06-23-2019 Basic metabolic 2000 [...] 06-21-2019 Phosphate [Mass/volume] in Serum or Plasma Mason Hinton Work Phone: Start: 06-21-2019 Complete blood count [...] panel - Blood by Automated count Ramon Becerril Rhys Work Phone: Start: 06-18-2019 Radiography of rytgef-[id number]-[id number] Edw in Rosita Garcia Work Phone: Start: 06-18-2019 Iaad ia hpylori stool Max G Kopitnik Work Phone: Start: 06-18-2019 Basic metabolic 2000 panel - Serum or Plasma Ramon Becerril Rhys Work Phone: Start: 06-18-2019 Complete blood count (hemogram) panel - Blood by Automated count Ramon Lorena Joiner Work Phone: Start: 06-17-2019 Basic metabolic 2000 panel - Serum or Plasma Brennen Austin Work Phone: Start: 06-17-2019 Complete blood count (hemogram) panel - Blood by Automated count Brennen Austin Work Phone: Start: 06-16-2019 End: 06-16-2019 12 lead ECG Brennen Austin Work Phone: Start: 06-16-2019 Basic metabolic 2000 panel - Serum or Plasma Max G Kopitnik Work Phone: Start: 06-16-2019 Complete blood count (hemogram) panel - Blood by Automated count Max G Kopitnik Work Phone: Start: 06-16-2019 End: 06-16-2019 Exploratory laparotomy Brad Johnson Work Phone: Start: 06-15-2019 Radex gi tract upper w/wo delayed images w/kub Mihir Ngo Work Phone: Start: 06-15-2019 Blood group typing Marivel Mae Work Phone: Start: 06-15-2019 Computerized tomography, limited studies External Transcribed Start: 06-15-2019 Bacteria identified in Blood by Culture Belen Cedeno Work Phone: Start: 06-15-2019 Bacteria identified in Unspecified specimen by Aerobe culture Belen Cedeno Work Phone: Start: 06-15-2019 Basic metabolic 2000 panel - Serum or Plasma Belen Cedeno Work Phone: Start: 06-15-2019 Blood type and Indirect antibody screen panel - Blood Max Jesica Graham Work Phone: Start: 06-15-2019 Complete blood count with white cell differential, automated Belen Cedeno Work Phone: Start: 06-15-2019 Complete blood count with white cell differential, manual Beeln Cedeno Work Phone: Start: 06-15-2019 Hepatic function 2000 panel - Serum or Plasma Belen Cedeno Work Phone: Start: 06-15-2019 INR in Platelet poor plasma by Coagulation assay Bernardino Graham Work Phone: Start: 06-15-2019 Lactate [Moles/volume] in Serum or Plasma Belen Cedeno Work Phone: Start: 06-15-2019 LIGHT BLUE [...] Treatment Date Care Activity Detail Author Start: 12-26-2024 Endoscopy upper small intestine w/biopsy SMALL BOWEL ENDOSCOPY/BIOPSY [facility] Start: 12-26-2024 Electrocardiographic procedure [facility] Start: 12-26-2024 Patient discharge [facility] Start: 09-05-2024 Colonoscopy w/biopsy single/multiple COLONOSCOPY AND BIOPSY [facility] Start: 09-05-2024 Colsc flx w/rmvl of tumor polyp lesion snare tq COLONOSCOPY W/LESION REMOVAL [facility] Start: 09-05-2024 Egd transoral biopsy single/multiple EGD BIOPSY SINGLE/MULTIPLE [facility] Start: 09-05-2024 Egd transoral control bleeding any method EGD CONTROL BLEEDING ANY [facility] Start: 09-05-2024 Patient discharge [facility] Start: 02-25-2022 Influenza vaccination Sequential Influenza Vaccine (#1) [facility] Start: 2021 Fall risk assessment Falls Risk Assessment [facility] Start: 2021 Pneumococcal Vaccine: Age 65+ (1 - PCV) Pneumococcal Vaccine: Age 65+ (1 - PCV) [facility] Start: 10-26-2020 Esophagogastroduodenoscopy EGD [facility] Start: 08-05-2020 COVID-19 Vaccine (2 - Moderna series) COVID-19 Vaccine (2 - Moderna series) [facility] Start: 08-05-2020 COVID-19 Vaccine (2 of 2 - Moderna series) COVID-19 Vaccine (2 of 2 - Moderna series) [facility] Start: 07-29-2020 End: 07-29-2020 Hospital Encounter [facility] Endoscopy Comment on above: ESOPHAGOGASTRODUODENOSCOPY Start: 07-25-2020 End: 07-25-2020 Office Visit 07/25/2020 Office Visit Lab Messi Mae MD [address] [facility] [address] [place] [address] [phone] [facility] Start: 05-23-2020 Esophagogastroduodenoscopy EGD [facility] Start: 02-26-2020 Influenza vaccination given Sequential Influenza Vaccine (#1) [facility] Start: 09-11-2019 End: 09-11-2019 Office Visit 09/11/2019 Office Visit General Surgery [facility] [place] Start: 07-02-2019 End: 06-23-2020 Basic metabolic 2000 panel Basic Metabolic Panel Lab Routine Perforated duodenal ulcer (HCC) Expected: 07/02/2019, Expires: 06/23/2020 [facility] Comment on above: Expected: 07/02/2019, Expires: 0 Start: 02-25-2019 Influenza vaccination given Sequential Influenza Vaccine (#1) [facility] Start: 2006 Administration of herpes zoster vaccine Zoster Vaccines (1 of 2) [facility] Start: 2006 Screening for malignant neoplasm of colon [facility] Start: 1996 Screening for malignant neoplasm of breast Mammogram [facility] Start: 1974 Hepatitis C antibody, confirmatory test Hepatitis C Screening [facility] Start: 1974 Hepatitis C screening Hepatitis C Screening [facility] Start: 12-11-1971 HIV screening HIV Screening [facility] Start: 1968 Adolescent depression screening assessment Depression Screening (PHQ9) [facility] Start: 1968 Depression screening using PHQ-9 (Patient Health Questionnaire 9) score Depression Screening (PHQ-2/9) [facility] Start: 12-11-1959 History and physical examination, annual for health maintenance Wellness Visit [facility] Start: 1956 Hepatitis C antibody, confirmatory test Hepatitis C Screening [facility] Start: 1956 Screening for malignant neoplasm of cervix Pap Smear [facility] Start: 1956 Screening for malignant neoplasm of colon [facility] Start: 1956 Screening for osteoporosis Dexa Scan [facility] Start: 1956 Screening mammography Mammogram [facility] Start: 1956 Tetanus vaccination [facility] C reactive protein [ Mass/volume] in Serum or Plasma [facility] CBC W Auto Different ial panel - Blood [facility] Celiac disease screen [facility] Ceruloplasmin [Mass/ volume] in Serum or Plasma [facility] Comprehensive metabo lic 2000 panel - Serum or Plasma [facility] End: 07-24-2021 Covid-19/Influenza Order Algorithm : COVID-19 Lab Test Only (OP in UTM) Tier 2 EGD - Dr. Messi Mae Covid-19/Influenza Order Algorithm : COVID-19 Lab Test Only (OP in UTM) Tier 2 EGD - Dr. Messi Mae Microbiology Routine Contact with or exposure to viral disease 1 Occurrences starting 07/24/2020 until 07/24/2021 [facility] Comment on above: 1 Occurrences starting 07/24/2020 until 07/24/2021 Cytoplasmic ANCA Screen [facility] Ferritin [Mass/volum e] in Serum or Plasma [facility] Hemoglobin A1c/Hemog lobin.total in Blood [facility] Iron and Iron bindin g capacity panel - Serum or Plasma [facility] Lipid 1996 panel - Serum or Plasma [facility] Liver stiffness by U S.transient elastography [facility] Liver stiffness by U S.transient elastography [facility] Mitochondria Ab [Pre sence] in Serum [facility] Parathyroid hormone measurement [facility] Patient referral [facility] Work Phone: Procedure on tissue specimen [facility] Comment on above: Release Upon Ordering for 1 Occurrences starting 07/29/2020 Release Upon Orderin g for 1 Occurrences starting 02/21/2020 Prothrombin time [facility] Serum immunofixation [facility] Serum inorganic phos phate measurement [facility] Smooth muscle Ab [Pr esence] in Serum [facility] Thyroid stimulating hormone measurement [facility] Vitamin D, 25-hydroxy measurement [facility] Immunizations Immunization Date Immunization Notes Care Provider Chichi mccormick 09-22-2018 influenza, seasonal, injectable Yves d Buether [facility] Payers Date Payer Category Payer Self-pay [id number] 2023 Medicare [id number] 2019 Medicaid [facility] MEDICAID COMMUNITY PLAN [id number] 2019-Present [id number] 2019 Medicaid [id number] 2019 Medicaid [facility] MEDICAID COMMUNITY PLAN [id number] 2019-Present [phone] [address] [place] [address] [id number] [id number] 1956 Unknown [id number] 2.16.840.1.901377.3.579.2.900 1955 Unknown [id number] 2..840.1.184351.3.579.2.902 1956 Unknown [id number] 2..840.1.783365.3.579.2.902 1956 Unknown [id number] 2..840.1.736319.3.579.2.651 1956 Unknown [id number] 2.840.1.688369.3.579.2.651 1956 Unknown [id number] 2..840.1.142490.3.579.2.651 1956 Unknown [id number] .840.1.073645.3.579.2.651 Unknown [id number] Unknown [id number] Unknown [id number] .840.1.356420.3.579.2.462 Unknown [id number] 840.1.124465.3.579.2.462 Unknown [id number] 840.1.489713.3.579.2.462 Unknown [id number] 840.1.935641.3.579.2.462 Unknown [id number] .840.1.116965.3.579.2.462 Unknown [id number] .840.1.909359.3.579.2.462 Unknown [id number] .840.1.190868.3.579.2.462 Unknown [id number] 2.840.1.183278.3.579.2.462 Unknown [id number] 2.840.1.635602.3.579.2.462 Unknown [id number] 2.16.840.1.119132.3.579.2.462 Unknown [id number] 2.16.840.1.301847.3.579.2.462 Unknown [id number] 2.16.840.1.775652.3.579.2.462 Unknown [id number] 2.16.840.1.647924.3.579.2.462 Unknown [id number] 2.16.840.1.637137.3.579.2.462 Unknown [id number] 2.16.840.1.027261.3.579.2.462 Unknown [id number] 2.16.840.1.980636.3.579.2.462 Unknown [id number] 2.16.840.1.036716.3.579.2.462 Unknown [id number] 2.16.840.1.604585.3.579.2.462 Social History Date Type Detail Facility Start: 07-10-2019 End: 12-24-2024 Tobacco smoking status NYIS Former smoker [facility] Start: 07-10-2019 End: 08-05-2021 Alcohol intake Ex-drinker (finding) [facility] Start: 06-15-2019 Alcohol Comment rare [facility] Start: 1955 Sex Assigned At Not on file [facility] Exposure to SARS-CoV-2 (event) Unable to assess [facility] Start: 06-15-2019 End: 02-21-2020 Tobacco use and exposure Never used [facility] Exposure to SARS-CoV-2 (event) Not sure [facility] Start: 10-13-2021 End: 11-03-2021 Tobacco smoking status NYIS Tobacco smoking consumption unknown [facility] Start: 1955 Sex Assigned At Female [facility] History of tobacco use Current smoker [facility] Start: 09-05-2024 End: 09-21-2024 Sex Female (finding) [facility] NEGATED: Highlighted row Not [facility] Medical Equipment Procedure Code Equipment Code Equipment Original Text Equipment Identifier Dates Colonoscopy Gastrointestinal endoscopic clip, long-term, non-bioabsorbable ([id number] FDA Start: 09-05-2024 Goals Date Patient Goal Desired Activity /State Mental Status Date Assessment Result Facility 12-26-2024 Cognitive function Voice/Name [facility] Work Phone: 09-05-2024 Cognitive function Voice/Name [facility] Work Phone: 11-04-2021 Cognitive function Voice/Name [facility] Work Phone: Clinical Notes 10-23-2021 to 12-26-2024 Note Date & Type Note Facility 12-26-2024 Consult note Note Date/Time December 26, 2024 6:42am [facility] Medical Records Department [address] [place] [address] Pre-Anesthesia Evaluation 12/26/2415 MR#: [id number] Acct: [id number] Name: FELIPA LIMA SHREYAS Rep #:[id number] : 1955 69 From: Sylvester Vasquez MD PCP: Dr. Kandace Katz MD Status:REG SDC Y Race: C Location: [place] [address] ASA Classification* ASA Classification ASA Classification: 3 Assessment & Plan Anesthesia* Anesthesia Assessment Anesthesia [...] anesthesia risk assessments. Anesthesia Type Anesthesia Type: MAC History Source History Obtained from:: Patient and Chart Anesthesia Focused Assessment* Temperature: 97.6 F Pulse Rate: 73 Blood Pressure: 138/75 Respiratory Rate: 18 Pulse Ox: 98 Oxygen Delivery Method: Room Air Airway Assessment Mouth opens: >3 cm Mallampati Score: IV Teeth Condition: Intact Neck Range of motion (ROM): Full ROM Labs Anesthesia Preop lab: CBC WBC 5.3 [...] COAG Pre-Assessment Diagnosis/Proposed Procedure Planned Operative Procedure(s): EGD Anesthesia History Anesthesia History - uniformer: Anesthesia History - uniformer Hx Hospitalization No 12/24/24 14:47 Any Problems With Anesthesia had tremors with last endo procedure 12/24/24 14:47 Cholinesterase deficiency No 12/24/24 14:47 [...] patient instructed to take am of surgery Any additional information?: Yes NPO since: 00:00 Meds taken in AM with sips of water?: Yes PONV PONV - uniformer: PONV - uniformer Female Yes 12/24/24 14:47 HX of Motion Sickness No 12/24/24 14:47 HX of N/V After Surgery No 12/24/24 14:47 Non-Smoker Yes 12/24/24 14:47 Duration of Surgery greater No 12/24/24 14:47 than 60 minutes Number of Risk Factors 2 12/24/24 14:47 PONV Score Moderate Risk 12/24/24 14:47 Height & Weight Height & Weight: Anesthesia: Height & Weight Height 5 ft 3 in 11/13/24 12:29 Respiratory Assessment Respiratory Assessment - uniformer: Respiratory Tract Infection Hx - uniformer Hx Respiratory Tract Infection No 12/24/24 14:47 STOP Sleep Apnea STOP Sleep Apnea - uniformer: STOP Sleep Apnea - uniformer Hx Hypertension No 12/24/24 14:47 Hx Sleep [...] Tobacco Use History Tobacco Use History - uniformer: Tobacco Use History - uniformer Tobacco Use Smoking Status Former smoker 12/24/24 14:47 Hx Tobacco Use No 12/24/24 14:47 Years Smoking Packs Smoked per Day Smoking Cessation Date was No - quit smoking greater 12/24/24 14:47 within the last 15 years than 15 years ago Hx Smoking Cessation Date 11/25/05 12/24/24 14:47 Hx Smoking Cessation No 12/24/24 14:47 Counseling Hematologic Medial History Hematologic Hx - uniformer: 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 Specify any problems Hx of Preganancy in last 3 N/A 12/24/24 14:47 Months Nurse Filling Out Transfusion [id number] 12/24/24 14:47 & Questions: Date: 12/24/24 12/24/24 14:47 Time: 14:49 12/24/24 14:47 Patient unable to answer at this time (ie. confused, unrespo /Reproduction History /Reproductive History - uniformer: /Reproductive Hx- uniformer Hx Now Gestational Age (in weeks): EDC: Hx Hx Para Hx Section SAB No 08/31/24 12:44 Active Medications Active Medications: Current Medications Generic Name Dose Route Start Last Admin Trade Name Freq PRN Reason Stop Dose Admin Lactated Ringer's 1,000 mls @ 15 mls/hr 12/26/24 05:45 IV .Q48H [facility] PFSH Medical History Wears contact lenses Thyroid disease Arthritis Bladder [...] 100 mg tablet 100 mg PO DAILY 10/13/2108/21 History sodium bicarbonate 650 mg tablet 650 mg PO TID 2 09/04/24 History risankizumab-rzaa 150 mg/mL 150 mg subcut Q12W 5 Unknown History subcutaneous pen injector (Skyrizi) acetaminophen 500 mg capsule 500 mg PO Q6H PRN pain 09/04/24 History nitrofurantoin macrocrystal 100 mg 100 mg PO Q12H PRN BLADDER 07/17/24 Unknown History capsule oxybutynin chloride 10 mg 10 mg PO QDAY 07/17/2412/26 History tablet,extended release 24 hr pantoprazole 40 mg tablet,delayed 40 mg PO QDAY #180 t abs 09/25/24 12/26/24 Rx release spironolactone 25 mg tablet 25 mg PO DAILY PRN PER 12/24/24 Unknown History Allergy/AdvReac Type Severity Reaction Status Date / Time cephalexin Allergy Severe Other Verified 12/26/24 06:24 Iodinated Contrast Media Allergy Mild rash Verified 12/26/24 06:24 latex Allergy Rash Verified 12/26/24 06:24 wool Allergy Rash Verified 12/26/24 06:24 codeine AdvReac Mild gi upset Verified 12/26/24 06:24 morphine AdvReac Mild gi upset Verified 12/26/24 06:24 Family History Father Diabetes Hypertension Cancer skin [...] and no additional complaints, except as documented. 12/26/24 0642 <Electronically signed by Sylvester esteves MD> Date _ Sylvester Vasquez MD Cosigner Signature: Date CC: ~ Signed [facility] Work Phone: 1(905) 859-902307-02-2025 Consult note [facility] Medical Records Department [address] [place] [address] Anesthesia Postop Eval I 12/26/24 0735 MR#: [id number] Acct: [id number] Name: FELIPA LIMA SHREYAS Rep #:[id number] : 1955 69 From: Jefry Alford PCP: Dr. Kandace Katz MD Status:REG SDC Y Race: C Location: [place] [address] Anesthesia: Postop Eval I Current Vital Signs Temperature: 97 F Pulse Rate: 72 Blood Pressure: 121/74 Respiratory Rate: 14 Pulse Ox: 98 Oxygen Delivery Method: Room Air Assessment Airway patent: Yes Spontaneous unlabored respirations: Yes Mental status: Awake and Calm nausea: No Vomiting: No Anesthesia Complication: No Fluid Hydration Crystalloid volume administer (ml): 300 Total IV fluid infused: 300 Progress Note Anesthesia document: Postop Eval 1 completed: Yes 12/26/24 0736 > Date _ Jefry Alford Cosigntaurus Signature: Date CC: ~ Signed [facility]07-02-2025 Procedure note [facility] Medical Records Department [address] [place] [id number] EGD Report MR#: [id number] Acct: [id number] Name: FELIPA LIMA SHREYAS Rep #:[id number] : 1955 69 From: Roderick Tang DO PCP: Dr. Kandace Katz MD Status:[facility] Patient Name: Felipa Lima Procedure Date: 12/26/2024 6:32 AM Date of : 1955 Age: 69 Procedure: Upper GI endoscopy Indications: Epigastric abdominal pain, Acute post hemorrhagic anemia, Follow-up of Sandoval's esophagus, Peptic ulcer Providers: Roderick Tang DO Referring MD: Kandace Katz Medicines: Monitored Anesthesia Care Patient Profile: This is a 69 year old female. Refer to note in patient chart for documentation of history and physical. Patient has symptoms of acute epigastric abdominal pain, acute dyspepsia, acute heartburn and acute nausea. Her most recent EGD for biopsy and EGD for treatment of bleeding was within the past six months. Complications: No immediate complications. Procedure: Pre-Anesthesia Assessment: [...] patient has taken no anticoagulant or antiplatelet agents except for NSAID medication. ASA Grade Assessment: II - A patient [...] and oxygen saturations were monitored continuously. The gastroscope was introduced through the mouth, and advanced to the third part of the duodenum. Small bowel enteroscopy was deemed necessary. The upper GI endoscopy was accomplished without difficulty. The patient tolerated the procedure well. Scope In: 7:19:03 AM Scope Out: 7:25:14 AM Total Procedure Duration Time 0 hours 6 minutes 11 seconds Findings: The Z-line was irregular and was found 38 cm from the incisors. Biopsies were taken with a cold forceps for histology. Verification of patient identification for the specimen was done. Estimated blood loss was minimal. No gross lesions were noted in the entire examined stomach. Patchy mild inflammation characterized by erosions and erythema was found in the first portion of the duodenum and in the second portion of the duodenum. Biopsies were taken with a cold forceps for histology. Verification of patient identification for the specimen was done. Estimated blood loss was minimal. Impression: - Z-line irregular, 38 cm from the incisors. Biopsied. - No gross lesions in the entire stomach. - Chronic duodenitis. Biopsied. Recommendation: - Discharge patient to home. - Resume previous diet. - Continue present medications. - Await pathology results. Procedure Code(s): --- Professional --- 23124, Small intestinal endoscopy, enteroscopy beyond second portion of duodenum, not including ileum; with biopsy, single or multiple CPT copyright 2021 [employer]. All rights reserved. The codes documented in this report are preliminary and upon cnc operator machinist review may be revised to meet current compliance requirements. Roderick Tang DO 12/26/2024 7:30:24 AM This report has been signed electronically. Number of Addenda: 0 Note Initiated On: 12/26/2024 6:32 AM 12/26/24730 Date _ Roderick Tang DO Cosigner Signature: Date (if indicated) CC: Dr. Kandace Katz MD; Roderick Tang DO ~ Date Dictated: 12/26/24631 Date Transcribed: Global Sales Executive: RF Signed [facility]07-02-2025 Procedure note [facility] Medical Records Department [address] [place] [address] Operative Report - CC Letter MR#: [id number] Acct: [id number] Name: FELIPA LIMA SHREYAS Rep #:[id number] : 1955 69 From: Roderick Tang DO PCP: Dr. Kandace Katz MD Status:REG [facility] 12/26/2024 Kandace Katz [address] [place] [address] Re : Upper GI endoscopy procedure for Felipa Hirashelley Dear Dr. Katz This procedure was performed on Tuesday, December 26, 2024. My impressions and recommendations are as follows: Impressions : - Z-line irregular, 38 cm from the incisors. Biopsied. - No gross lesions in the entire stomach. - Chronic duodenitis. Biopsied. Recommendations : - Discharge patient to home. - Resume previous diet. - Continue present medications. - Await pathology results. My findings are described in the full procedure note, which is enclosed. If I can be of further assistance, please feel free to contact me at . Sincerely, Roderick Tang DO 12/26/2024 7:30:24 AM This report has been signed electronically. 12/26/24730 Date _ Roderick Tang DO Cosigner Signature: Date (if indicated) CC: Dr. Kandace Katz MD; Roderick Tang DO ~ Date Dictated: 12/26/2432 Date Transcribed: Global Sales Executive: RF Signed [facility]07-02-2025 History and physical note [facility] Medical Records Department [address] [place] [address] History & Physical Exam 12/26/24 0701 MR#: [id number] Acct: [id number] Name: FELIPA LIMA SHREYAS Rep #:[id number] : 1955 69 From: Roderick Tang DO PCP: Dr. 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 Biopsied. - Medium-sized hiatal hernia. - Enlarged gastric folds. - A single duodenal polyp. Clip was placed. 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 Biopsied. COLON 09/05/2024 TAs - RECALL colon [...] elevated glucose dating back to at least 2018 [facility] Medical History Wears contact lenses Thyroid disease Arthritis Bladder [...] 100 mg tablet 100 mg PO DAILY 10/13/2108/21 History sodium bicarbonate 650 mg tablet 650 mg PO TID 2 09/04/24 History risankizumab-rzaa 150 mg/mL 150 mg subcut Q12W 5 Unknown History subcutaneous pen injector (James) acetaminophen 500 mg capsule 500 mg PO Q6H PRN pain 09/04/24 History nitrofurantoin macrocrystal 100 mg 100 mg PO Q12H PRN BLADDER 07/17/24 Unknown History capsule oxybutynin chloride 10 mg 10 mg PO QDAY 07/17/2412/26 History tablet,extended release 24 hr pantoprazole 40 mg tablet,delayed 40 mg PO QDAY #180 t abs 09/25/24 12/26/24 Rx release spironolactone 25 mg tablet 25 mg PO DAILY PRN PER 12/24/24 Unknown History Allergy/AdvReac Type Severity Reaction Status Date / Time cephalexin Allergy Severe Other Verified 12/26/24 06:24 Iodinated Contrast Media Allergy Mild rash Verified 12/26/24 06:24 latex Allergy Rash Verified 12/26/24 06:24 wool Allergy Rash Verified 12/26/24 06:24 codeine AdvReac Mild gi upset Verified 12/26/24 06:24 morphine AdvReac Mild gi upset Verified 12/26/24 06:24 Family History Father Diabetes Hypertension Cancer skin [...] changes Vital Signs Vital Signs Vital Signs: 12/26/24 06:24 12/26/24 06:24 12/26/24 06:29 Temperature 97.6 F L 97.6 F L Temperature Source Temporal Pulse Rate 73 73 Respiratory Rate 18 18 Respiratory Pattern Normal Blood Pressure 138/75 H 138/75 H Blood Pressure Mean 96 Blood Pressure Source Monitor Blood Pressure Position Sitting Blood Pressure Location Right Arm Pulse Ox 98 98 Oxygen Delivery Method Room Air Room Air Weight Weight: 240 lb 11.916 oz Body Mass Index (BMI) 42.6 Physical Exam Const alert, oriented x3, no apparent distress and healthy appearing General Appearance: cooperative GI normal to inspection, nondistended, normoactive bowel sounds, soft to palpation,non-tender and non-distended Percussion: normal to percussion Rectal Exam: deferred Assessment & Plan Assessment/Plan (1) Nausea: (2) RUQ pain: (3) Sandoval esophagus: QUALIFIERS: Sandoval's esophagus type: without dysplasia QualifiedCode(s): K22.70 - 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 Her past medical history is significant for Sandoval's esophagus and she underwent an EGD on 09/05/2024 which did reveal short segment Sandoval's without dysplasia as well as a 15 mm duodenal polyp. 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 It is recommended she take PPI twice daily and repeat EGD in 3 to 4 months. Screening colonoscopy was also performed 09/05/2024 and revealed tubularadenomas. It is recommended she repeat colonoscopy in 3 years. She experiences mild RUQ pain and occasional nausea. Denies any HB and weight is stable. She hasbeen on PPI 20mg daily and will increase to 40mg BID. Previous ABD US and CT were revealing for hepatomegaly, liver steatosis and splenomegaly. Transaminases, albumin, and PLTare WNL. FibroScan was performed 07/26/2024 and revealed F0/S3 no fibrosis with severe liver fat; however, IQR was elevated to 33% which raises concern for validity of results. ELF 09/14/2024 elevated to 11.29 indicating high probability of advanced fibrosis/cirrhosis. I have recommended she follow-up with PCP for A1C as well as vaccination for HAV and HBV. She will schedule consult with our rack maker, Dr. Sampson. Patient Instructions: - Follow-up with Dr. Ada Katz for A1C if not recently performed - Will await A1C before making recommendation on Vitamin E use - Increase pantoprazole to 40mg twice a day and repeat EGD in 3-4 months - Schedule consult with Dr. Sampson for MASLD - Recommend vaccination for HAV and HBV - Repeat FibroScan in 1 year Metabolic dysfunction-associated steatotic liver disease (MASLD) is a spectrum of disease that ranges from a more benign condition of nonalcoholic fatty liver (NAFL) to nonalcoholic steatohepatitis (MASH), which is at the more severe end of the spectrum. In NAFL, hepatic steatosis is present without evidence of inflammation, whereas in MASH, hepatic steatosis is associated with lobular inflammation and apoptosis that can lead to fibrosis and cirrhosis. Lifestyle modifications are the cornerstone of treatment for fatty liver disease. These include optimizing care for diabetes, high cholesteroland obesity. - Weight loss is the primary [...] sizes can also make weight loss easier. Ebkb-dk-nwetxgva intensity cardiovascular and/or resistance exercise (30 min, 3-4 days/week) paired with dietary modifications is helpful, as long as such an exercise regimen is permitted by your cooperer or primary care provider. Dietary counseling and/or [...] and predisposes to insulin resistance and diabetes. 12/26/24 0703 Cosigner Signature (if applicable): CC: Dr. Kandace Katz MD; Roderick Tang DO~ Signed [facility]07-02-2025 [facility] Medical Records Department [address] [place] [address] History Physical Exam 12/26/24 0701 MR#: [id number] Acct: [id number] Name: FELIPA LIMA Rep #: [id number] : 1955 69 From: Roderick Tang DO PCP: Dr. 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 Biopsied. - Medium-sized hiatal hernia. - Enlarged gastric folds. - A single duodenal polyp. Clip was placed. 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 Biopsied. COLON 09/05/2024 TAs - RECALL colon [...] elevated glucose dating back to at least 2018 [facility] Medical History Wears contact lenses Thyroid disease Arthritis Bladder [...] mg tablet 100 mg PO DAILY 10/13/21 12/26/24 History sodium bicarbonate 650 mg tablet 650 [...] 10 mg 10 mg PO QDAY 07/17/24 12/26/24 Hi story tablet,extended release 24 hr pantoprazole 40 mg tablet,delayed 40 mg PO QDAY #180 tabs 09/25/24 12/26/24 Rx release spironolactone 25 mg tablet 25 mg PO DAILY PRN PER 12/24/24 Unknown History Allergy/AdvReac Type Severity Reaction Status Date / Time cephalexin Allergy Severe Other Verified 12/26/24 06:24 Iodinated Contrast Media Allergy Mild rash Verified 12/26/24 06:24 latex Allergy Rash Verified 12/26/24 06:24 wool Allergy Rash Verified 12/26/24 06:24 codeine AdvReac Mild gi upset Verified 12/26/24 06:24 morphine AdvReac Mild gi upset Verified 12/26/24 06:24 Family History Father Diabetes Hypertension Cancer skin [...] in bowel habits, change in stool character, fredi (more content not included)...[facility]07-02-2025 Consult note [facility] Medical Records Department [address] [place] [address] Pre-Anesthesia Evaluation 12/26/24 0615 MR#: [id number] Acct: [id number] Name: FELIPA LIMA Rep #:[id number] : 1955 69 From: Sylvester Vasquez MD PCP: Dr. Kandace Katz MD Status:REG SDC Y Race: C Location: [place] [address] ASA Classification* ASA Classification ASA Classification: 3 Assessment & Plan Anesthesia* Anesthesia Assessment Anesthesia [...] anesthesia risk assessments. Anesthesia Type Anesthesia Type: MAC History Source History Obtained from:: Patient and Chart Anesthesia Focused Assessment* Temperature: 97.6 F Pulse Rate: 73 Blood Pressure: 138/75 Respiratory Rate: 18 Pulse Ox: 98 Oxygen Delivery Method: Room Air Airway Assessment Mouth opens: >3 cm Mallampati Score: IV Teeth Condition: Intact Neck Range of motion (ROM): Full ROM Labs Anesthesia Preop lab: CBC WBC 5.3 [...] COAG Pre-Assessment Diagnosis/Proposed Procedure Planned Operative Procedure(s): EGD Anesthesia History Anesthesia History - uniformer: Anesthesia History - uniformer Hx Hospitalization No 12/24/24 14:47 Any Problems With Anesthesia had tremors with last endo procedure 12/24/24 14:47 Cholinesterase deficiency No 12/24/24 14:47 [...] patient instructed to take am of surgery Any additional information?: Yes NPO since: 00:00 Meds taken in AM with sips of water?: Yes PONV PONV - uniformer: PONV - uniformer Female Yes 12/24/24 14:47 HX of Motion Sickness No 12/24/24 14:47 HX of N/V After Surgery No 12/24/24 14:47 Non-Smoker Yes 12/24/24 14:47 Duration of Surgery greater No 12/24/24 14:47 than 60 minutes Number of Risk Factors 2 12/24/24 14:47 PONV Score Moderate Risk 12/24/24 14:47 Height & Weight Height & Weight: Anesthesia: Height & Weight Height 5 ft 3 in 11/13/24 12:29 Respiratory Assessment Respiratory Assessment - uniformer: Respiratory Tract Infection Hx - uniformer Hx Respiratory Tract Infection No 12/24/24 14:47 STOP Sleep Apnea STOP Sleep Apnea - uniformer: STOP Sleep Apnea - uniformer Hx Hypertension No 12/24/24 14:47 Hx Sleep [...] Tobacco Use History Tobacco Use History - uniformer: Tobacco Use History - uniformer Tobacco Use Smoking Status Former smoker 12/24/24 14:47 Hx Tobacco Use No 12/24/24 14:47 Years Smoking Packs Smoked per Day Smoking Cessation Date was No - quit smoking greater 12/24/24 14:47 within the last 15 years than 15 years ago Hx Smoking Cessation Date 11/25/05 12/24/24 14:47 Hx Smoking Cessation No 12/24/24 14:47 Counseling Hematologic Medial History Hematologic Hx - uniformer: 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 Specify any problems Hx of Preganancy in last 3 N/A 12/24/24 14:47 Months Nurse Filling Out Transfusion [email or web address] 12/24/24 14:47 & Questions: Date: 12/24/24 12/24/24 14:47 Time: 14:49 12/24/24 14:47 Patient unable to answer at this time (ie. confused, unrespo /Reproduction History /Reproductive History - uniformer: /Reproductive Hx- uniformer Hx Now Gestational Age (in weeks): EDC: Hx Hx Para Hx Section SAB No 08/31/24 12:44 Active Medications Active Medications: Current Medications Generic Name Dose Route Start Last Admin Trade Name Freq PRN Reason Stop Dose Admin Lactated Ringer's 1,000 mls @ 15 mls/hr 12/26/24 05:45 IV .Q48H TRIPP PFSH Medical History Wears contact lenses Thyroid disease Arthritis Bladder [...] 100 mg tablet 100 mg PO DAILY 10/13/2108/21 History sodium bicarbonate 650 mg tablet 650 mg PO TID 2 09/04/24 History risankizumab-rzaa 150 mg/mL 150 mg subcut Q12W 5 Unknown History subcutaneous pen injector (James) acetaminophen 500 mg capsule 500 mg PO Q6H PRN pain 09/04/24 History nitrofurantoin macrocrystal 100 mg 100 mg PO Q12H PRN BLADDER 07/17/24 Unknown History capsule oxybutynin chloride 10 mg 10 mg PO QDAY 07/17/2412/26 History tablet,extended release 24 hr pantoprazole 40 mg tablet,delayed 40 mg PO QDAY #180 t abs 09/25/24 12/26/24 Rx release spironolactone 25 mg tablet 25 mg PO DAILY PRN PER 12/24/24 Unknown History Allergy/AdvReac Type Severity Reaction Status Date / Time cephalexin Allergy Severe Other Verified 12/26/24 06:24 Iodinated Contrast Media Allergy Mild rash Verified 12/26/24 06:24 latex Allergy Rash Verified 12/26/24 06:24 wool Allergy Rash Verified 12/26/24 06:24 codeine AdvReac Mild gi upset Verified 12/26/24 06:24 morphine AdvReac Mild gi upset Verified 12/26/24 06:24 Family History Father Diabetes Hypertension Cancer skin [...] and no additional complaints, except as documented. 12/26/24 0642 danielito SAHU> Date _ Sylvester Vasquez MD Cosigner Signature: Date CC: ~ Signed [facility]05-20-2025 Evaluation note* Diagnosis Onset Date Resolution Status Admit Date Metabolic dysfunction-associated steatotic liver disease (MASLD) chronic November 13, 2024 1 2:23pm Sandoval esophagus acute December 5:24am Nausea acute December 26, 2024 5:24am RUQ pain acute December 26, 2024 5:24am Metabolic dysfunction-associated steatotic liver disease (MASLD) chronic January 29, 2025 10:07am [employer] Work Phone: 1(992) 998-529405-20-2025 Evaluation note* Diagnosis Onset Date Resolution Status Admit Date Metabolic dysfunction-associated steatotic liver disease (MASLD) chronic November 13, 2024 1 2:23pm Sandoval esophagus acute December 5:24am Nausea acute December 26, 2024 5:24am RUQ pain acute December 26, 2024 5:24am GERD (gastroesophageal reflu x disease) acute January 29, 2025 10:07am Metabolic dysfunction-associated steatotic liver disease (MASLD) chronic January 29, 2025 10:07am Morbid obesity chronic January 10:07am [facility] Work Phone: 1(964) 556-765104-22-2025 NoteHNO ID: [id number] Author: FAITH PADRON APRN.[employer]PER [employer] Service: ? Author Type: Nurse Practitioner Type: Procedures Filed: 10/16/2024 13:38 Note Text: Interstim program was on 4 @ 2.0, she is now switched to program 5 @ 2.0. She feels the stimulation in her buttocks. Faith Padron APRN.[facility]04-22-2025 NoteHNO ID: [id number] Author: FAITH PADRON APRN.[facility] Service: ? Author Type: Nurse Practitioner Type: Progress Notes Filed: 10/16/2024 13:38 Note Text: [facility] ESTABLISHED PATIENT OFFICE VISIT HISTORY OF PRESENT [...] thyroid (benign) PT ED OBST[facility]EC[facility] HISTORY Problem Relation Age of [...] pole stone Observe for now ESSENCE Lindsay APRN.ANAHY This note was partially created using voice recognition software and is inherently subject to errors including those of syntax and sound-alike substitutions which may escape proofreading. In such instances, original meaning may be extrapolated by contextual derivation.03-12-2025 History and physical note Author Roderick Tang [facility] Note Date/Time September 05, 2024 6:[address] [facility] Medical Records Department [address] [place] [address] History & Physical Exam 09/05/24 0655 MR#: [id number] Acct: [id number] Name: FELIPA LIMA SHREYAS Rep #:[id number] : 1955 68 From: Roderick Tang DO PCP: Dr. Kandace Katz MD Status:[facility] Location: [place] [address] HPI - General General Date of Admission: [...] to control bladder frequency Skyrizi for psoriasis [facility] Medical History Thyroid disease Arthritis Bladder disease [...] as FibroScan for additional evaluation. Elastography - ClaimKit ELF - Enhanced Liver Fibrosis (ELF)? Test [...] sizes can also make weight loss easier. Jftx-nu-yqtavgtl intensity cardiovascular and/or resistance exercise (30 min, 3-4 days/week) paired with dietary modifications is helpful, as long as such an exercise regimen is permitted by your cooperer or primary care provider. Dietary counseling and/or [...] Kandace Katz MD; Roderick Tang DO~ Signed [facility] Work Phone: 1(858) 278-545803-12-2025 Consult note Author Keron Bowen [facility] Note Date/Time September 05, 2024 6:1 3am [facility] Medical Records Department [address] [place] [address] Pre-Anesthesia Evaluation 09/05/24 0602 MR#: [id number] Acct: [id number] Name: FELIPA LIMA SHREYAS Rep #:[id number] : 1955 68 From: Keron Bowen MD PCP: Dr. Kandace Katz MD Status:REG SDC Y Race: C Location: [facility] ASA Classification* ASA Classification ASA Classification: 3 [...] lab: CBC WBC 5.3 K/mm3 (4.4-11.0) 07/17/24 12:07/17/24 RBC 4.30 M/mm3 (4.2-5.4) 07/17/24 12:07/17/24 Hgb 12.9 g/dL (12.0-15.0) 07/17/24 12:07/17/24 Hct 41.2 % (37-47) 07/17/24 12:07/17/24 Plt Count 195 K/mm3 (150-450) 07/17/24 12:07 07/17/24 CHEMISTRY Potassium 4.1 mmol/L (3.5-5.1) 07/17/24 12:07/17/24 Sodium 140 mmol/L (136-145) 07/17/24 12:07 07/17/24 BUN 34 mg/dL (7-18) H 07/17/24 12:07 07/17/24 Creatinine 1.60 mg/dL (0.55-1.02) H 07/17/24 12:07 Glucose 112 mg/dL (74-106) H 07/17/24 12:07 07/17/24 COAG Pre-Assessment Diagnosis/Proposed Procedure Planned Operative Procedure(s): EGD/CSCOPE Anesthesia History Anesthesia History - uniformer: Anesthesia History - uniformer Hx Hospitalization Yes: 09/2023 [facility] 08/31/24 12:44 [...] take am of surgery PONV PONV - uniformer: PONV - uniformer Female Yes 08/31/24 12:44 HX of Motion [...] 09/05/24 05:50 Respiratory Assessment Respiratory Assessment - uniformer: Respiratory Tract Infection Hx - uniformer Hx Respiratory Tract Infection No 08/31/24 12:44 STOP Sleep Apnea STOP Sleep Apnea - uniformer: STOP Sleep Apnea - uniformer Hx Hypertension No 08/31/24 12:44 Hx Sleep [...] Tobacco Use History Tobacco Use History - uniformer: Tobacco Use History - uniformer Tobacco Use Smoking Status Former smoker 08/31/24 12:44 Hx Tobacco Use No 08/31/24 12:44 Years Smoking Packs Smoked per Day Smoking Cessation Date was No - quit smoking greater 08/31/24 12:44 within the last 15 years than 15 years ago Hx Smoking Cessation Date 11/25/05 08/31/24 12:44 Hx Smoking Cessation No 08/31/24 12:44 Counseling Hematologic Medial History Hematologic Hx - uniformer: Hematologic Medical Hx - manager storage Hx of Blood Transfusion Yes 08/31/24 12:44 [...] confused, unrespo /Reproduction History /Reproductive History - uniformer: /Reproductive Hx- uniformer Hx Now No 08/31/24 12:44 Gestational Age [...] by Keron Bowen MD> Date _ Keron Mendiola Signature: CC: ~ Signed [facility] Work Phone: 1(146) 430-232403-12-2025 Consult note [facility] Medical Records Department [address] [place] [place] [address] Anesthesia Postop Eval I 09/05/24752 MR#: [id number] Acct: [id number] Name: FELIPA LIMA SHREYAS Rep #:[id number] : 1955 68 From: Jefry Alford PCP: Dr. Kandace Katz MD Status:REG [facility] Y Race: C Location: [place] [address] Anesthesia: Postop Eval I Current Vital Signs [...] Jefry Mendiola Signature: Date CC: ~ Signed [facility]03-12-2025 Procedure note [facility] Medical Records Department [address] [place] [address] Colonoscopy Report MR#: [id number] Acct: [id number] Name: FELIPA LIMA Rep #:[id number] : 1955 68 From: Roderick Tang DO PCP: Dr. Kandace Katz MD Status:REG [facility] Patient Name: Felipa Lima Procedure Date: 09/05/2024 [...] for surveillance. Procedure Code(s): --- Professional --- 68874, Colonoscopy, flexible; with removal of tumor(s), polyp(s), or other lesion(s) by snare technique 59148, 59, Colonoscopy, flexible; with biopsy, single or multiple CPT copyright 2021 [employer]. All rights reserved. The codes documented in this report are preliminary and upon cnc operator machinist review may be revised to meet current compliance requirements. Roderick Tang DO 09/05/2024 7:50:20 AM This report has been signed electronically. Number of Addenda: 0 Note Initiated On: 09/05/2024 7:22 AM 09/05/24 0750 Date _ Roderick Tang DO Cosigner Signature: Date (if indicated) CC: Dr. Kandace Katz MD; Roderick Tang DO ~ Date Dictated: 09/05/24721 Date Transcribed: Global Sales Executive: RF Signed [facility]03-12-2025 Procedure note [facility] Medical Records Department [address] [place] [address] Operative Report - CC Letter MR#: [id number] Acct: [id number] Name: FELIPA LIMA SHREYAS Rep #:[id number] : 1955 68 From: Roderick Tang DO PCP: Dr. Kandace Katz MD Status:REG [facility] 09/05/2024 Kandace Katz [address] [place] [address] Re : Colonoscopy procedure for Felipa Lima [...] signed electronically. 09/05/24 075 Date _ Roderick Tang DO Cosigner Signature: Date (if indicated) CC: Dr. Kandace Katz MD; Roderick Tang DO ~ Date Dictated: 09/05/24721 Date Transcribed: Global Sales Executive: RF Signed [facility]03-12-2025 Procedure note [facility] Medical Records Department [address] [place] [address] EGD Report MR#: [id number] Acct: [id number] Name: FELIPA LIMA SHREYAS Rep #:[id number] : 1955 68 From: Roderick Tang DO PCP: Dr. Kandace Katz MD Status:[facility] Patient Name: Felipa Lima Procedure Date: 09/05/2024 [...] one hemostatic clip was successfully placed. 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 There was no bleeding at the end of the procedure. Biopsies were taken with a cold forceps for histology. Verification of patient identification for the specimen was done. Estimated blood loss was minimal. Impression: - Z-line irregular, 39 cm from the incisors. Biopsied. - Medium-sized hiatal hernia. - Enlarged gastric folds. - A single duodenal polyp. Clip was placed. 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 Biopsied. Recommendation: - Discharge patient to home. - Resume previous diet. - Continue present medications. - Await pathology results. - Repeat upper endoscopy for surveillance based on pathology results. Procedure Code(s): --- Professional --- 65885, 59, Esophagogastroduodenoscopy, flexible, transoral; with control of bleeding, any method 60770, 51, Esophagogastroduodenoscopy, flexible, transoral; with biopsy, single or multiple CPT copyright 2021 [employer]. All rights reserved. The codes documented in this report are preliminary and upon cnc operator machinist review may be revised to meet current compliance requirements. Roderick Tang DO 09/05/2024 7:46:11 AM This report has been signed electronically. Number of Addenda: 0 Note Initiated On: 09/05/2024 6:14 AM 09/05/24 0746 Date _ Roderick Tang DO Cosigner Signature: Date (if indicated) CC: Dr. Kandace Katz MD; Roderick Tang DO ~ Date Dictated: 09/05/24613 Date Transcribed: Global Sales Executive: RF Signed [facility]03-12-2025 Procedure note [facility] Medical Records Department [address] [place] [address] Operative Report - CC Letter MR#: [id number] Acct: [id number] Name: FELIPA LIMA SHREYAS Rep #:[id number] : 1955 68 From: Roderick Tang DO PCP: Dr. Kandace Katz MD Status:REG [facility] 09/05/2024 Kandace Katz [address] [place] [address] Re : Upper GI endoscopy procedure for Felipa Lima Dear Dr. Katz This procedure was performed on Thursday, September 05, 2024. My impressions and recommendations are as follows: Impressions : - Z-line irregular, 39 cm from the incisors. Biopsied. - Medium-sized hiatal hernia. - Enlarged gastric folds. - A single duodenal polyp. Clip was placed. 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 Biopsied. Recommendations : - Discharge patient to [...] This report has been signed electronically. 09/05/24 0746 Date _ Roderick Tang DO Cosigner Signature: Date (if indicated) CC: Dr. Kandace Katz MD; Roderick Tang DO ~ Date Dictated: 09/05/2414 Date Transcribed: Global Sales Executive: RF Signed [facility]03-12-2025 Evaluation note* Diagnosis Onset Date Resolution Status Admit Date Sandoval esophagus acute August 252024 5:22am Screen for colon cancer acute 2024 5:22am GERD (gastroesophageal reflu x disease) acute September 25, 2024 10:15am Metabolic dysfunction-associated steatotic liver disease (MASLD) acute September 25, 2024 10:15am Nausea acute September 25 10:15am RUQ pain acute September 25 10:15am Metabolic dysfunction-associated steatotic liver disease (MASLD) chronic November 13, 2024 12:23pm Sandoval esophagus acute December 5:24am Nausea acute December 26, 2024 5:24am RUQ pain acute December 26, 2024 5:24am [facility] Work Phone: 1(188) 501-593403-12-[address] [facility] Medical Records Department [address] [place] [address] History & Physical Exam 09/05/24 0655 MR#: [id number] Acct: [id number] Name: FELIPA LIMA SHREYAS Rep #:[id number] : 1955 68 From: Roderick Tang DO PCP: Dr. Kandace Katz MD Status:REG [facility] Location: [place] [address] HPI - General General Date of Admission: [...] as FibroScan for additional evaluation. Elastography - ClaimKit ELF - Enhanced Liver Fibrosis (ELF)? Test [...] sizes can also make weight loss easier. Ztxo-hw-nfooxsep intensity cardiovascular and/or resistance exercise (30 min, 3-4 days/week) paired with dietary modifications is helpful, as long as such an exercise regimen is permitted by your cooperer or primary care provider. Dietary counseling and/or [...] Kandace Katz MD; Roderick Tang, ~ Signed [facility]03-12-2025 [facility] Medical Records Department [address] [place] [address] History Physical Exam 09/05/24 0655 MR#: [id number] Acct: [id number] Name: FELIPA LIMA SHREYAS Rep #: [id number] : 1955 68 From: Roderick Tang DO PCP: Dr. Kandace Katz MD Status:[facility] Location: [place] [address] HPI - General General Date of Admission: [...] Blood Pressure Source Monito (more content not included)...[facility]03-12-2025 Consult note [facility] Medical Records Department [address] [place] [address] Pre-Anesthesia Evaluation 09/05/24 0602 MR#: [id number] Acct: [id number] Name: FELIPA LIMA SHREYAS Rep #:[id number] : 1955 68 From: Keron Bowen MD PCP: Dr. Kandace Katz MD Status:REG SDC Y Race: C Location: [place] [address] ASA Classification* ASA Classification ASA Classification: 3 [...] Procedure(s): EGD/CSCOPE Anesthesia History Anesthesia History - uniformer: Anesthesia History - uniformer Hx Hospitalization Yes: 09/2023 SEPSIS 08/31/24 12:44 [...] take am of surgery PONV PONV - uniformer: PONV - uniformer Female Yes 08/31/24 12:44 HX of Motion [...] 09/05/24 05:50 Respiratory Assessment Respiratory Assessment - uniformer: Respiratory Tract Infection Hx - uniformer Hx Respiratory Tract Infection No 08/31/24 12:44 STOP Sleep Apnea STOP Sleep Apnea - uniformer: STOP Sleep Apnea - uniformer Hx Hypertension No 08/31/24 12:44 Hx Sleep [...] Tobacco Use History Tobacco Use History - uniformer: Tobacco Use History - uniformer Tobacco Use Smoking Status Former smoker 08/31/24 12:44 Hx Tobacco Use No 08/31/24 12:44 Years Smoking Packs Smoked per Day Smoking Cessation Date was No - quit smoking greater 08/31/24 12:44 within the last 15 years than 15 years ago Hx Smoking Cessation Date 11/25/05 08/31/24 12:44 Hx Smoking Cessation No 08/31/24 12:44 Counseling Hematologic Medial History Hematologic Hx - uniformer: Hematologic Medical Hx - manager storage Hx of Blood Transfusion Yes 08/31/24 12:44 [...] confused, unrespo /Reproduction History /Reproductive History - uniformer: /Reproductive Hx- uniformer Hx Now No 08/31/24 12:44 Gestational Age [...] rhythm, no murmurs and diaphoretic 09/05/24 0613 > Date _ Keron Bowen MD Cosigner Signature: Date CC: ~ Signed [facility]03-11-2025 NoteHNO ID: [id number] Author: PORSHA TRAMMELL MD Service: ? Author [...] Date Chronic kidney disease, stage IV (severe) ([facility]) Dr. Nickerson Kidney stones PONV (postoperative nausea [...] thyroid (benign) PT ED OBSTETRICS AND GYNECOLOGY [facility] Problem Relation Age of [...] observe for now. Porsha (more content not included)...02-03-2025 Evaluation note* Diagnosis Onset Date Resolution Status [...] (MASLD) chronic November 13, 2024 1 2:23pm [facility] Work Phone: 1(784) 253-415101-21-2025 Evaluation note* Diagnosis Onset Date Resolution Status [...] colon cancer acute M arch 2024 5:22am [facility] Work Phone: 1(995) 162-354001-21-2025 Evaluation note* Diagnosis Onset Date Resolution Status [...] 10:15am RUQ pain acute September 25 10:15am [facility] Work Phone: 1(692) 743-893509-29-2024 NoteHNO ID: [id number] Author: LEO FLAHERTY RT(R) Service: Radiology Author Type: Technologist Type: [...] PATIENT PRESENTS WITH AN IMPLANTABLE OR ATTACHED SOFTBALL UMPIRE: No RADIOLOGY DEPARTMENT: CT; Exam(s) Completed: Abdomen/Pelvis PERIPHERAL IV DATA: Not applicable SIGNED BY: Leo Flaherty, RT(R) March 25, 2024 1:42 PM09-10-2024 NoteHNO ID: [id number] Author: JULIA SUAREZ APRN.HELPER DRIVER Service: ? Author Type: Nurse Practitioner Type: Progress Notes Filed: 03/06/2024 11:26 Note Text: [facility] ESTABLISHED PATIENT OFFICE VISIT Patient presents with: [...] date: Chronic kidney disease, stage IV (severe) ([facility]) Comment: Dr. Nickerson No date: Kidney stones [...] date: PT ED OBSTETRICS AND GYNECOLOGY Comment: [facility] Problem Relation Age of [...] results - CT ABD/PEL WO HARDY Suarez, KOHINOOR OPERATOR.HELPER DRIVER This note was partially created using voice recognition software and is inherently subject to errors including those of syntax and sound-alike substitutions which may escape proofreading. In such instances, original meaning may be extrapolated by contextual derivation.04-10-2024 Note . MICRO - Microbiology PROCEDURE: Blood Culture (bacterial) [...] Locations *1: This test was performed at: [address], [facility] , [facility] ([place])10-05-2023 Note. MICRO - Microbiology PROCEDURE: Blood Culture [...] Locations *1: This test was performed at: [facility], [address] [place] [address], [facility] , [facility] ([place])10-23-2021 [facility] note Author Jefry Alford [facility] Note Date/Time September 05, 2024 7:5 4am [facility] Medical Records Department [address] [place] [id number] Anesthesia Postop Eval I 09/05/24 0753 MR#: [id number] Acct: [id number] Name: FELIPA LIMA SHREYAS Rep #:[id number] : 1955 68 From: Jefry Alford PCP: Dr. Kandace Katz MD Status:REG SDC Y Race: C Location: [place] [address] Anesthesia: Postop Eval I Current Vital Signs [...] Postop Eval 1 completed: Yes 09/05/24 0754 <Electronically signed by Jefry Alford > Date _ Jefry Mendiola Signature: Date CC: ~ Signed [facility] Work Phone: Consult note Author Jefry Alford [facility] Note Date/Time December 26, 2024 7:36a [facility] Medical Records Department [address] [place] [address] Anesthesia Postop Eval I 12/26/24 0735 MR#: [id number] Acct: [id number] Name: FELIPA LIMA SHREYAS Rep #:[id number] : 1955 69 From: Jefry Alford PCP: Dr. Kandace Katz MD Status:REG [facility] Y Race: C Location: [place] [address] Anesthesia: Postop Eval I Current Vital Signs Temperature: 97 F Pulse Rate: 72 Blood Pressure: 121/74 Respiratory Rate: 14 Pulse Ox: 98 Oxygen Delivery Method: Room Air Assessment Airway patent: Yes Spontaneous unlabored respirations: Yes Mental status: Awake and Calm nausea: No Vomiting: No Anesthesia Complication: No Fluid Hydration Crystalloid volume administer (ml): 300 Total IV fluid infused: 300 Progress Note Anesthesia document: Postop Eval 1 completed: Yes 12/26/24 0736 <Electronically signed by Jefry Alford > Date _ Jefry Mendiola Signature: Date CC: ~ Signed [facility] Work Phone: Evaluation noteNo assessment information available [facility] Work Phone: Evaluation note* Diagnosis Onset Date Resolution Status RUQ abdominal mass acute RUQ abdominal mass acute [facility] Work Phone: History and physical note Author Roderick Tang [facility] Note Date/Time December 26, 2024 7:03a m [facility] Medical Records Department [address] [place] [address] History & Physical Exam 12/26/24 0701 MR#: [id number] Acct: [id number] Name: FELIPA LIMA SHREYAS Rep #:[id number] : 1955 69 From: Roderick Tang DO PCP: Dr. 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 Biopsied. - Medium-sized hiatal hernia. - Enlarged gastric folds. - A single duodenal polyp. Clip was placed. 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 Biopsied. COLON 09/05/2024 TAs - RECALL colon [...] glucose dating back to at least 2019 [facility] Medical History Wears contact lenses Thyroid disease Arthritis Bladder [...] 100 mg tablet 100 mg PO DAILY 10/13/2108/21 History sodium bicarbonate 650 mg tablet 650 mg PO TID 2 09/04/24 History risankizumab-rzaa 150 mg/mL 150 mg subcut Q12W 5 Unknown History subcutaneous pen injector (Skyrizi) acetaminophen 500 mg capsule 500 mg PO Q6H PRN pain 09/04/24 History nitrofurantoin macrocrystal 100 mg 100 mg PO Q12H PRN BLADDER 07/17/24 Unknown History capsule oxybutynin chloride 10 mg 10 mg PO QDAY 07/17/2412/26 History tablet,extended release 24 hr pantoprazole 40 mg tablet,delayed 40 mg PO QDAY #180 t abs 09/25/24 12/26/24 Rx release spironolactone 25 mg tablet 25 mg PO DAILY PRN PER 12/24/24 Unknown History Allergy/AdvReac Type Severity Reaction Status Date / Time cephalexin Allergy Severe Other Verified 12/26/24 06:24 Iodinated Contrast Media Allergy Mild rash Verified 12/26/24 06:24 latex Allergy Rash Verified 12/26/24 06:24 wool Allergy Rash Verified 12/26/24 06:24 codeine AdvReac Mild gi upset Verified 12/26/24 06:24 morphine AdvReac Mild gi upset Verified 12/26/24 06:24 Family History Father Diabetes Hypertension Cancer skin [...] changes Vital Signs Vital Signs Vital Signs: 12/26/24 06:24 12/26/24 06:24 12/26/24 06:29 Temperature 97.6 F L 97.6 F L Temperature Source Temporal Pulse Rate 73 73 Respiratory Rate 18 18 Respiratory Pattern Normal Blood Pressure 138/75 H 138/75 H Blood Pressure Mean 96 Blood Pressure Source Monitor Blood Pressure Position Sitting Blood Pressure Location Right Arm Pulse Ox 98 98 Oxygen Delivery Method Room Air Room Air Weight Weight: 240 lb 11.916 oz Body Mass Index (BMI) 42.6 Physical Exam Const alert, oriented x3, no apparent distress and healthy appearing General Appearance: cooperative GI normal to inspection, nondistended, normoactive bowel sounds, soft to palpation,non-tender and non-distended Percussion: normal to percussion Rectal Exam: deferred Assessment & Plan Assessment/Plan (1) Nausea: (2) RUQ pain: (3) Sandoval esophagus: QUALIFIERS: Sandoval's esophagus type: without dysplasia QualifiedCode(s): K22.70 - 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 Her past medical history is significant for Sandoval's esophagus and she underwent an EGD on 09/05/2024 which did reveal short segment Sandoval's without dysplasia as well as a 15 mm duodenal polyp. 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 It is recommended she take PPI twice daily and repeat EGD in 3 to 4 months. Screening colonoscopy was also performed 09/05/2024 and revealed tubularadenomas. It is recommended she repeat colonoscopy in 3 years. She experiences mild RUQ pain and occasional nausea. Denies any HB and weight is stable. She hasbeen on PPI 20mg daily and will increase to 40mg BID. Previous ABD US and CT were revealing for hepatomegaly, liver steatosis and splenomegaly. Transaminases, albumin, and PLT are WNL. FibroScan was performed 07/26/2024 and revealed F0/S3 no fibrosis with severe liver fat; however, IQR was elevated to 33% which raises concern for validity of results. ELF 09/14/2024 elevated to 11.29 indicating high probability of advanced fibrosis/cirrhosis. I have recommended she follow-up with PCP for A1C as well as vaccination for HAV and HBV. She will schedule consult with our rack maker, Dr. Sampson. Patient Instructions: - Follow-up with Dr. Ada Katz for A1C if not recently performed - Will await A1C before making recommendation on Vitamin E use - Increase pantoprazole to 40mg twice a day and repeat EGD in 3-4 months - Schedule consult with Dr. Sampson for MASLD - Recommend vaccination for HAV and HBV - Repeat FibroScan in 1 year Metabolic dysfunction-associated steatotic liver disease (MASLD) is a spectrum of disease that ranges from a more benign condition of nonalcoholic fatty liver (NAFL) to nonalcoholic steatohepatitis (MASH), which is at the more severe end of the spectrum. In NAFL, hepatic steatosis is present without evidence of inflammation, whereas in MASH, hepatic steatosis is associated with lobular inflammation [...] sizes can also make weight loss easier. Hbro-zl-[id number] intensity cardiovascular and/or resistance exercise (30 min, 3-4 days/week) paired with dietary modifications is helpful, as long as such an exercise regimen is permitted by your cooperer or primary care provider. Dietary counseling and/or [...] and predisposes to insulin resistance and diabetes. 12/26/24 0703 <Electronically signed by Roderick Tang DO> Cosigner Signature (if applicable): CC: Dr. Kandace Katz MD; Roderick Tang DO~ Signed [facility] Work Phone: Reason for referral (narrative)No reason for referral information availableWUniversity [facility]als [facility] System Work Phone: Summary Purpose Family History No Family History Records Found Relationship Condition Age at Onset Recorded Date/T seema father Diabetes mellitus Unknown Hypertension Unknown Malignant neoplasm Unknown mother Hypertension Unknown brother Malignant neoplasm of colon Unknown Advance Directives No Advanced Directives Records FoundDocuments on File Type Date Recorded Patient Cyber Forensics Analyst Expl anation Advance Directives and Livin g Will 06/15/2019 7:08 PM Latest Code Status on File Code Status Date Activated Date Inactivated Comments Full Code 06/16/2019 3:23 AM Full Code - Unverified 06/15/2019 11:38 PM 06/16/2019 3:23 AM Documents on File Type Date Recorded Patient Cyber Forensics Analyst Expl anation Advance Directives and Livin g Will 06/15/2019 7:08 PM Latest Code Status on File Code Status Date Activated Date Inactivated Comments Full Code 06/16/2019 3:23 AM Full Code - Unverified 06/15/2019 11:38 PM 06/16/2019 3:23 AM Documents on File Type Date Recorded Patient Cyber Forensics Analyst Expl anation Advance Directives and Livin g Will 02/21/2020 7:08 PM Latest Code Status on File Code Status Date Activated Date Inactivated Comments Full Code 06/16/2019 3:23 AM 02/21/2020 12:59 PM Documents on File Type Date Recorded Patient Cyber Forensics Analyst Expl anation Advance Directives and Livin g Will 07/29/2020 7:08 PM Latest Code Status on File Code Status Date Activated Date Inactivated Comments Full Code 06/16/2019 3:23 AM 02/21/2020 12:59 PM Documents on File Type Date Recorded Patient Cyber Forensics Analyst Expl anation Advance Directives and Livin g Will 07/29/2020 7:08 PM Documents on File Type Date Recorded Patient Cyber Forensics Analyst Expl anation Advance Directives and Livin g Will 02/21/2020 7:08 PM Advance Directive Response Recorded Date/ Time Living Will No November 03, 2021 8 :30am Power of Movement Education Specialist No November 03, 2021 8:30am Advance Directive Response Recorded Date/ Time Living Will No November 03, 2021 7 :30am Power of Movement Education Specialist No November 03, 2021 7:30am Latest Code Status on File Code Status Date Activated Date Inactivated Comments Full Code 06/16/2019 3:23 AM 02/21/2020 12:59 PM Code Status History Code Status Date Activated Date Inactivated Comments Full Code - Unverified 06/15/2019 11:38 PM 06/16/2019 3:23 AM Advance Directive Response Recorded Date/ Time Living Will No August 31, 2024 1:44pm Power of Movement Education Specialist No August 31 1:44pm Advance Directive Response Recorded Date/ Time Living Will No August 31, 2024 1:44pm Do you have a Healthcare Power of Movement Education Specialist? No August 31, 2024 1:44pm Advance Directive Response Recorded Date/ Time Do you have a Healthcare Power of Movement Education Specialist? No December 24, 2024 2:47pm Living Will No August 31, 2024 1:44pm Do you have a Healthcare Power of Movement Education Specialist? No August 31, 2024 1:44pm Advance Directive Response Recorded Date/ Time Do you have a Healthcare Power of Movement Education Specialist? No December 24, 2024 2:47pm Reason for Referral Status Reason Specialty Diagnoses / Procedures Referred By Contact Referred To Contact Pending Review Gastroenterology Diagnoses Follow-up examination, following other surgery Mika Augustin MD [address] [place] [address] Me Prov Gastroenterolog y [address] [place] [address] History of Present Illness * Fernando To DO - 09/18/2019 2:18 PM EDT Unable to contact Needs GI referral documented in this encounter* Fernando To DO - 09/21/2019 3:11 PM EDT Unable to contact documented in this encounter* Chela Ruano DO - 02/04/2020 4:43 PM EDT Received CMS page. Patient follows with surgery and has no-showed for multiple appointments and hasbeen difficult to reach. Her PCP is not at [facility]. Requested that page be directed to Surgery. Chela Ruano DO Internal Medicine, PGY3 Pager [phone] documented in this encounter* Mason Hinton MD - 06/23/2019 10:20 AM EST Mason Hinton MD [facility] Hospitalists DAILY PROGRESS NOTE Patient Name: Felipa Lima PCP: Kandace Katz MD Perpetual Assessment: Felipa Lima is a 63 y.o. female who who was transferred to [facility] from [facility] for treatment of a perforated duodenal ulcer and infected right obstructing kidney stone. She had presented from home on 06/15/2019 with a 1-2 week complaint of flank pain that she had managed with NSAIDs. [facility] was consulted for medical management. Assessment [...] [x] Medications [] Family Time Spent/CCM Time: HA * Lorena Beasley MD - 06/23/2019 7:37 AM EST GENERAL SURGERY DAILY PROGRESS NOTE Patient Name: Felipa Lima MR #: [id number] Assessment and Plan: 63 y.o. female w/ [...] place, drain serous Ext: WWP Neuro: ARIN Bealsey 06/23/19 Please contact surgical video editing internship english as a second language instructor at [phone] 5PM-6AM and weekends * Mason Hinton MD - 06/22/2019 4:40 PM EST Mason Hinton MD [facility] Hospitalists DAILY PROGRESS NOTE Patient Name: Felipa Lima PCP: Kandace Katz MD Perpetual Assessment: Felipa Lima is a 63 y.o. female who who was transferred to [facility] from [facility] for treatment of a perforated duodenal ulcer and infected right obstructing kidney stone. She had presented from home on 06/15/2019 with a 1-2 week complaint of flank pain that she had managed with NSAIDs. [facility] was consulted for medical management. Assessment [...] NOTE Patient Name: Felipa Lima MR #: [id number] Assessment and Plan: 63 y.o. female w/ [...] Ext: WWP Neuro: ARIN Joiner 06/22/19 Pager: [phone] Dr. Beasley will be assuming care starting today Pager: [phone] Please contact surgical video editing internship english as a second language instructor at [phone] 5PM-6AM and weekends * Mason Hinton MD - 06/21/2019 11:00 AM EST Mason Hinton MD [facility] Hospitalists DAILY PROGRESS NOTE Patient Name: Felipa Lima PCP: Kandace Katz MD Perpetual Assessment: Felipa Lima is a 63 y.o. female who who was transferred to [facility] from [facility] for treatment of a perforated duodenal ulcer [...] NOTE Patient Name: Felipa Lima MR #: [id number] Assessment and Plan: 63 y.o. 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 Nutrition Intervention/Recommendations: - ADAT. 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 Wt hx: she had lost 97# x22 months with kidney problems, gained 20# back, and estimates she may have lost 10# more recently (though she doesn't tell me numeric wt hx). She denies weakness or difficulty getting around MONITOR CAR OPERATOR or currently. Denies GI distress. Current [...] Estimated Energy Needs Total Energy Estimated Needs: 1309-7493 kcal Method for Estimating Needs: 25-30 kcal/kg IBW (BMI 24.9 = 64kg) Total Protein Estimated Needs: 83-102 g Method for Estimating Needs: 1.3-1.6 g/kg IBW Assessed By: Margi Johnson RD, LD * Mason Hinton MD - 06/20/2019 1:21 PM EST Masno Hinton MD [facility] Hospitalists DAILY PROGRESS NOTE Patient Name: Felipa Lima PCP: Kandace Katz MD Perpetual Assessment: Felipa Lima is a 63 y.o. female who who was transferred to [facility] from [facility] for treatment of a perforated duodenal ulcer and infected right obstructing kidney stone. She had presented from home on 06/15/2019 with a 1-2 week complaint of flank pain that she had managed with NSAIDs. [facility] was consulted for medical management. Assessment [...] NOTE Patient Name: Felipa Lima MR #: [id number] Assessment and Plan: 63 y.o. female w/ [...] Ext: WWP Neuro: ARIN Joiner 06/20/19 Pager: [phone] Please contact surgical video editing internship english as a second language instructor at [phone] 5PM-6AM and weekends * Mason Hinton MD - 06/19/2019 5:24 PM EST Mason Hinton MD [facility] Hospitalists DAILY PROGRESS NOTE Patient Name: Felipa Lima PCP: Kandace Katz MD Perpetual Assessment: Felipa Lima is a 63 y.o. female who who was transferred to [facility] from [facility] for treatment of a perforated duodenal ulcer [...] 06/21/19 Barriers to Discharge: Pending discharge order [facility] Disposition D/C Disposition: Home Agency/Destination: Home [...] Patient's PCP is Dr. Ada Katz at [facility]. Pt lives alone in a private residence. Her support is from a friend that more like her daughter and her sister. She drives and is able to drive to appts. She is not on any home medications [...] NOTE Patient Name: Felipa Lima MR #: [id number] Assessment and Plan: 63 y.o. female w/ [...] Ext: WWP Neuro: ARIN Joiner 06/19/19 Pager: [phone] Please contact surgical video editing internship english as a second language instructor at [phone] 5PM-6AM and weekends * Mason Hinton MD - 06/18/2019 5:22 PM EST Mason Hinton MD [facility] Hospitalists DAILY PROGRESS NOTE Patient Name: Felipa Lima PCP: Kandace Katz MD Perpetual Assessment: Felipa Lima is a 63 y.o. female who who was transferred to [facility] from [facility] for treatment of a perforated duodenal ulcer and infected right obstructing kidney stone. She had presented from home on 06/15/2019 with a 1-2 week complaint of flank pain that she had managed with NSAIDs. [facility] was consulted for medical management. Assessment [...] NOTE Patient Name: Felipa Lima MR #: [id number] No CP, SOB, N/V, pain controlled. Constitutional: Alert, cooperative, no distress, appears stated age Respiratory: Normal respiratory effort, non-labored breathing. Abdominal/GI: Soft, tender Extremities: No clubbing, cyanosis, or edema noted, no calf tenderness bilaterally, SCDs on and activated. Genitourinary: No cva pain Results from last 7 days Lab Units 06/18/19 0619 06/17/19 0340 06/16/19 0814 SODIUM mmol/L 144 138 134* POTASSIUM mmol/L 4.4 3.9 4.8 CHLORIDE mmol/L 115* 113* 110* BUN mg/dL 33* 44* 57* CREATININE mg/dL 2.38* 2.88* 3.25* GLUCOSE mg/dL 142* 105* 172* CALCIUM mg/dL 8.2* 7.8* 8.4 Results from last 7 days Lab Units 06/18/19 0619 06/17/19 0340 06/16/19 0814 WBC K/mcL 7.00 8.69 12.93* HGB g/dL 9.2* 9.2* 10.8* HCT % 29.1* 27.8* 32.3* PLT K/mcL 229 216 275 Assessment/Plan: Nephrolithiaisis - Patient with a history of kidney stones, underwent removal/blasting of a stone in November at [facility] - admitted with perforated duodenal ulcer s/p [...] Unable to Assess Rashmi Mckeon MDiv Resident Sales Representative Consultant [facility] Office: * Ramon Jioner MD - 06/18/2019 8:38 AM EST GENERAL SURGERY DAILY PROGRESS NOTE Patient Name: Felipa Lima MR #: [id number] Assessment and Plan: 63 y.o. female w/ [...] Ext: WWP Neuro: ARIN Joiner 06/18/19 Pager: [phone] Please contact surgical video editing internship english as a second language instructor at [phone] 5PM-6AM and weekends * Mariela Rodriguez RN [...] NOTE Patient Name: Felipa Lima MR #: [id number] Assessment and Plan: 63 y.o. female w/ [...] Keep in [facility] today, will transfer to [facility] tomorrow if remains stable Subjective: [...] 06/17/2019 11:11 AM EST Shai Bear DO [facility] Hospitalists DAILY PROGRESS NOTE Patient Name: Felipa Lima PCP: Kandace Katz MD Perpetual Assessment: Felipa Lima is a 63 y.o. female who who was transferred to [facility] from [facility] for treatment of a perforated duodenal ulcer and infected right obstructing kidney stone. She had presented from home on 06/15/2019 with a 1-2 week complaint of flank pain that she had managed with NSAIDs. [facility] was consulted for medical management. Assessment [...] pain. Denies past medical history or any [id number] medications use on a regular basis otherwise. [...] NOTE Patient Name: Felipa Lima MR #: [id number] Assessment and Plan: 63 y.o. female w/ [...] 06/16/2019 7:58 AM EST Brennen Austin CNP [facility] Hospitalists Medical Consultation Patient Name:Felipa Lima MR #:[id number] :1955 Admit Date: [id number] Physicians: Kandace Katz MD (Family); No ref. provider found (Referring) Perpetual Assessment: Felipa Lima is a 63 y.o. female with a history of kidney stones who presented on 06/15/2019 from [facility] with right infected kidney stone and perforated duodenal ulcer. [facility] consulted for medical management ASSESSMENT AND PLAN Perforated Duodenum -S/p Exploratory Lap with gram patch repair of ulcer with Dr. Johnson -Presented with 2 weeks of abdominal pain -Leukocytosis 22, VSS, lactic normal -Per reports CT imaging at [facility] showed small amount of free air RUQ, [...] kidney stones who presented on 06/15/2019 from [facility] with right infected kidney stone and perforated duodenal ulcer.Patient reports RLQ and right flank pain over the last 2 weeks. Pain acutely worsened yesterday 06/15 with nonbloody vomiting. She presented to [facility] CT imaging at the [facility] showed small [...] file Gets together: Not on file Attends orthodoxy service: Not on file Active member of [...] NOTE Patient Name: Felipa Lima MR #: [id number] 07/10/2019 10:07 AM Assessment/Plan: 63 yo F [...] schedule GI EGD in 3 months - [place] removed, healing well - Light duty at [...] reviewed Lorena Beasley MD General Surgery [id number] [phone] After 5PM and on weekends, please call the surgery video editing internship at [phone]. documented in this encounter Assessments Diagnosis Follow-up [...] in 2 days-- to be done by [id number] Follow-up your primary urologist * Additional Instructions* [...] through Care Everywhere. * Peptic Ulcer Disease (Gibraltarian) documented in this encounter Instructions * Patient Instructions* Samra Peña MA - 07/10/2019 10:10 AM EST Please call your nurse, Abeba at [phone] Option # 7 if you need to leave a message for your doctor. You may also leave a message for your doctor through your [employer] account. For urgent needs, call [phone] Option # 2 to speak with the triage nurse during business hours. For urgent calls when the office is closed, call the office at [phone] option # 1 and you will be connected with [employer] personnel who will route your comments [...] Admit Date High serum parathyroid hormone (PTH) Jul 1:32pm Thyroid nodule July 30, 2024 1 :32pm Sandoval esophagus September 05, 2024 5:2 2am Screen for colon cancer September 05, 2024 5:22am GERD (gastroesophageal reflux disease) A pri2024 10:15am Metabolic dysfunction-associ ated steatotic liver disease (MASLD) September 25, 2024 10:15am Nausea September 25, 2024 10:1 5am RUQ pain September 25, 2024 10:1 5am Metabolic dysfunction-associ ated steatotic liver disease (MASLD) November 13, 2024 12:23pm Chief Complaint Admit Date POST OP September 05, 2024 8:2 8am INT LAB ORDER September 14, 2024 10: 51am Test Result September 25, 2024 10:1 5am Ongoing issues November 13, 2024 12:23 pm SKIN November 13, 2024 1:14p m Reason for Visit Admit Date Sandoval esophagus September 05, 2024 5:2 2am Screen for colon cancer September 05, 2024 5:22am GERD (gastroesophageal reflux disease) A pri2024 10:15am Metabolic dysfunction-associ ated steatotic liver disease (MASLD) September 25, 2024 10:15am Nausea September 25, 2024 10:1 5am RUQ pain September 25, 2024 10:1 5am Metabolic dysfunction-associ ated steatotic liver disease (MASLD) November 13, 2024 12:23pm Sandoval esophagus December 26, 2024 5:24a m Nausea December 26, 2024 5:24a m RUQ pain December 26, 2024 5:24a m Chief Complaint Admit Date Ongoing issues November 13, 2024 12:23 pm SKIN November 13, 2024 1:14p m PREOP December 26, 2024 6:36a m 3 M FU January 29, 2025 10: 07am Reason for Visit Admit Date Metabolic dysfunction-associ ated steatotic liver disease (MASLD) November 13, 2024 12:23pm Sandoval esophagus December 26, 2024 5:24a m Nausea December 26, 2024 5:24a m RUQ pain December 26, 2024 5:24a m Metabolic dysfunction-associ ated steatotic liver disease (MASLD) January 29, 2025 10:07am Reason for Visit Admit Date Metabolic dysfunction-associ ated steatotic liver disease (MASLD) November 13, 2024 12:23pm Sandoval esophagus December 26, 2024 5:24a m Nausea December 26, 2024 5:24a m RUQ pain December 26, 2024 5:24a m GERD (gastroesophageal reflux disease) A ugust 2024 10:07am Metabolic dysfunction-associ ated steatotic liver disease (MASLD) January 29, 2025 10:07am Morbid obesity January 29, 2025 10: 07am Additional Source Comments INFORMATION SOURCE (unrecogn ized section and content) DATE CREATED AUTHOR 09/21/2019 [facility] DATE CREATED AUTHOR AUTHOR'S ORGANIZ ATION 07/27/2020 [facility] DATE CREATED AUTHOR AUTHOR'S ORGANIZ ATION 07/31/2020 [facility] DATE CREATED AUTHOR AUTHOR'S ORGANIZ ATION 07/05/2021 [facility] DATE CREATED AUTHOR AUTHOR'S ORGANIZ ATION 11/19/2021 [facility] [facility] DATE CREATED AUTHOR AUTHOR'S ORGANIZ ATION 08/05/2023 [facility] DATE CREATED AUTHOR AUTHOR'S ORGANIZ ATION 10/06/2023 [facility] ([place]) DATE CREATED AUTHOR AUTHOR'S ORGANIZ ATION 01/05/2025 [employer] [facility] DATE CREATED AUTHOR AUTHOR'S ORGANIZ ATION 02/12/2025 [facility] DATE CREATED AUTHOR AUTHOR'S ORGANIZ ATION 02/13/2025 [facility] Reason for Visit (unrecogniz ed section and content) Status Reason Specialty Diagnoses / Procedures Referre d By Contact Referred To Contact Diagnoses Gastroesophageal reflux disease with esophagitis and hemorrhage Gastroesophageal reflux disease with esophagitis and hemorrhage [K21.01] Procedures SC EGD TRANSORAL BIOPSY SINGLE/MULTIPLE ESOPHAGOGASTRODUODENOSC OPY Reason Comments Abdominal Pain Status Reason Specialty Diagnoses / Procedures Referre d By Contact Referred To Contact Diagnoses k27.1 Procedures SC EGD TRANSORAL BIOPSY SINGLE/MULTIPLE ESOPHAGOGASTRODUODENOS COPY Reason Comments Medication Refill Messi Mae MD - 07/29/2020 12:35 PM Messi López MD - 02/21/2020 1:58 PM EDT H&P Notes (unrecognized sect ion and content) GI H&P Patient Demographics: Felipa Lima [address] [facility] [address] (home) Date of : 1955 CHIEF COMPLAINT: [...] Procedure: ESOPHAGOGASTRODUODENOSCOPY; Surgeon: Messi Mae MD; Location: [facility]; Service: Gastroenterology EXPLORATORY LAPAROTOMY N/A 06/16/2019 Procedure: EXPLORATORY LAPAROTOMY, GRAM PATCH REPAIR OF OF ULCER; Surgeon: Bard Johnson MD; Location: [facility] Main OR; Service: General Surgery FOOT SURGERY [...] Patient Demographics: Felipa Lima [address] [place] [facility] [address] (home) Date of : 1955 CHIEF COMPLAINT: [...] Surgeon: Brad Johnson MD; Location: [facility] Main OR; Service: General Surgery FOOT SURGERY [...] Felipa Lima Admit Date: [id number] MR #: [id number] : 1955 Physicians: Kandace Katz MD (Family); No ref. provider found (Referring) Chief Complaint/Reason for Visit: CT concerning for Stones Assessment and Plan/Recommendations: Felipa Lima is a 63 y.o. y/o female presenting with Abdominal Pain Genitourinary Kidney stones Assessment & Plan - Patient with a history of kidney stones, underwent removal/blasting of a stone in November at [facility] in [place] - CT revealed mild right hydro and [...] was seen in the later spring at [facility] in [place] and had a nephrostomy tube for 2 [...] file Gets together: Not on file Attends orthodoxy service: Not on file Active member of [...] available. Call if acute changes or questions [phone].documented in this encounter Patrizia Mcallister RN - 06/15/2019 11:46 PM Amira Lopez RN - 06/15/2019 10:54 PM Belen Cunha PA-C - 06/15/2019 10:36 PM Amira Lopez RN - 06/15/2019 9:37 PM EST ED Notes (unrecognized secti on and content) Transferred to surgery Per umm Davila NG needed at this time PCP - Kandace Katz MD Chief Complaint Patient presents with Abdominal Pain HPI This is a 63 y.o. female with a PMH of kidney stones presenting to the ED with complaints of abdominal pain. She was transferred from an outlying facility from [facility]. She went there because she [...] file Gets together: Not on file Attends orthodoxy service: Not on file Active member of [...] female who comes as a transfer from [facility] in [facility] for ruptured duodenum and an obstructed [...] Procedure Abnormality Status --------- ------ CBC Auto Differential[[id number]] Abnormal Final result Please view results for [...] expedite correspondence this note was generated by e-volo voice recognition software. All imaging has been read by a Radiologist. Belen Cedeno PA-C 06/15/192238 Radiology calling transport for pt now, medications will be given right before test, radiology states to hold off NG placement until after test is performed STEVE [phone] FOR INFO Surgery at [facility] gave 25mcg and 4mg zofran on route Referral note: Call from Dr Mari Reyna at [facility] ED with Request to transfer to [facility] for perforated bowel with free air, also has an obstructed kidney stone , pt stable [facility] on stand by at [facility]. Pt has had abd pain x 1 [...] (please specify) Unable to determine Thank you, MATTHEW FigueredoN, RN Clinical Electrical High Tension Tester [phone] After business hours you may contact Joana Castillo at [phone](Weekdays until 10 PM and weekends 8 AM [...] determine Thank you, MAYANK Figueredo, RN Clinical Electrical High Tension Tester [phone] After business hours you may contact Joana Castillo at [phone] (Weekdays until 10 PM and weekends 8 AM -10 PM) Pain has been controlled throughout the night. FELIPA LIMA [facility] [id number] 1955 DATE 06/16/2019 OPERATIVE REPORT SURGEON BRAD JOHNSON MD LINE SUPPLY BERNARDINO GRAHAM MD, RESIDENT PREOPERATIVE DIAGNOSIS Perforated viscus. POSTOPERATIVE DIAGNOSIS Perforated duodenal ulcer PROCEDURE 1. Exploratory laparotomy 2. Abdominal lavage 3. Gadiel patch repair of perforated duodenal ulcer DRAINS 7 Fr CORY drain INDICATIONS FOR PROCEDURE The patient is a 63-year-old female, who presented to [place] as a transfer from outside hospital, complaining [...] was aspirated with a Canales-tip sucker. A Kathy retractor was placed into the abdomen for [...] RESIDENT BRAD JOHNSON MD D 06/16/2019 09:54 [id number] T 06/16/2019 13:06 MGK/MODL Associated attestation - Brad Johnson MD - 06/19/2019 8:09 AM EST Present/scrubbed for all critical portions of procedure Brad Johnson MD General Surgery, Trauma, and Surgical Critical Care [facility] c [phone] p [phone] Associated Problem(s): Kidney stones - Patient with a history of kidney stones, underwent removal/blasting of a stone in November at [facility] - CT revealed mild right hydro [...] (63 y.o.) Date of Service: 06/16/2019 CSN: [id number] Procedure(s): EXPLORATORY LAPAROTOMY, GRAM PATCH REPAIR OF OF ULCER Pre-Operative Diagnoses: * PERFORATED DUODENAL ULCER Post-Operative Diagnoses: * Perforated duodenal ulcer (HCC) [K26.5] Surgeon(s) and Role: * Brad Johnson MD - Primary * Mihir Ngo MD - Resident - Assisting * Bernardino Graham MD - Resident - Clinic Anesthesiologist: Nito Nguyen MD Scrub Person: Clark Brand Rail Car Painter/Sandblaster Orientee: Jose Coronado RN Rail Car Painter/Sandblaster Preceptor: Jefry De León RN Operative findings: [...] the patient. I discussed the patient with COMPUTERIZED MILL MILL RECORDER/PA. I agree with the COMPUTERIZED MILL MILL RECORDER/PA treatment plan. I agree with the COMPUTERIZED MILL MILL RECORDER/PA plan of care. I agree with the COMPUTERIZED MILL MILL RECORDER/PA dispo as documented. This patient was transferred [...] or prosecute any alcohol or drug abuse patient.[facility] the event this information is protected by the Federal Confidentiality of Alcohol and Drug Abuse Patient Records regulations: The Federal rules restrict any use of the information to criminally investigate or prosecute any alcohol or drug abuse patient.[facility] Goals (unrecognized section and content) Goals [...] Care Teams (unrecognized sec tion and content) Whipped Topping Mixer Relationship Specialty Start Date End Date Kandace Katz MD PCP - General Internal Medicine 06/15/19 Team Status: Active Member Role Status Dates Ro Sheth NP, COMPUTERIZED MILL MILL RECORDER-C Family Provider Active Dr. Kandace Katz MD [...] 2024 End: November 13, 2024 Team Status: Active Member Role/Relationship Status Dates Dr. Kandace Katz MD Primary Care Provider Active Team Status: Inactive Member Role/Relationship Status Dates Dr. Kandace Katz MD Primary Care Provider Active Start: September 05, 2024 End: September 05, 2024 Dr. Kandace Katz MD Referring Provider Active Start: September 05, 2024 End: September 05, 2024 Dr. Roderick Tang DO Attending Provider Active Start: September 05, 2024 End: September 05, 2024 Team Status: Active Member Role/Relationship Status Dates Dr. Kandace Katz MD Primary Care Provider Active Start: September 05, 2024 Dr. Kandace Katz MD Referring Provider Active Start: September 05, 2024 Dr. Roderick Tang DO Attending Provider Active Start: September 05, 2024 Dr. Roderick Tang DO Other Provider Active St art: September 05, 2024 Team Status: Active Member Role/Relationship Status Dates Dr. Kandace Katz MD Primary Care Provider Active Start: September 05, 2024 End: September 05, 2024 Dr. Sandro Bermudez MD Attending Provider Active S tart: September 05, 2024 End: September 05, 2024 Dr. Aman Ponce MD Referring Provider Active St art: September 05, 2024 End: September 05, 2024 Team Status: Inactive Member Role/Relationship Status Dates Dr. Kandace Katz MD Primary Care Provider Active Start: September 14, 2024 End: September 14, 2024 MIKEL Rodgers Attending Provider Active Start: September 14, 2024 End: September 14, 2024 MIKEL Rodgers Referring Provider Active Start: September 14, 2024 End: September 14, 2024 Team Status: Inactive Member Role/Relationship Status Dates Dr. Kandace Katz MD Primary Care Provider Active Start: September 25, 2024 End: September 25, 2024 Dr. Kandace Katz MD Referring Provider Active Start: September 25, 2024 End: September 25, 2024 MIKEL Rodgers Attending Provider Active Start: September 25, 2024 End: September 25, 2024 Team Status: Inactive Member Role/Relationship Status Dates Dr. Kandace Katz MD Primary Care Provider Active Start: November 13, 2024 End: November 13, 2024 Dr. Kandace Katz MD Referring Provider Active Start: November 13, 2024 End: November 13, 2024 Dr. Eric Sampson MD Attending Provider Active Start: November 13, 2024 End: November 13, 2024 Team Status: Inactive Member Role/Relationship Status Dates Dr. Kandace Katz MD Primary Care Provider Active Start: November 13, 2024 End: November 13, 2024 JUAN Snow Attending Provider Active Sta rt: November 13, 2024 End: November 13, 2024 JUAN Snow Referring Provider Active Sta rt: November 13, 2024 End: November 13, 2024 Team Status: Inactive Member Role/Relationship Status Dates Dr. Kandace Katz MD Primary Care Provider Active Start: December 26, 2024 End: December 26, 2024 Dr. Kandace Katz MD Referring Provider Active Start: December 26, 2024 End: December 26, 2024 Dr. Roderick Tang DO Attending Provider Active Start: December 26, 2024 End: December 26, 2024 Team Status: Active Member Role/Relationship Status Dates Dr. Kandace Katz MD Primary Care Provider Active Start: December 26, 2024 Dr. Kandace Katz MD Referring Provider Active Start: December 26, 2024 Dr. Roderick Tang DO Attending Provider Active Start: December 26, 2024 Dr. Roderick Tang DO Other Provider Active St art: December 26, 2024 Team Status: Inactive Member Role/Relationship Status Dates Dr. Kandace Katz MD Primary Care Provider Active Start: November 13, 2024 End: November 13, 2024 Dr. Kandace Katz MD Referring Provider Active Start: November 13, 2024 End: November 13, 2024 Dr. Eric Sampson MD Attending Provider Active Start: November 13, 2024 End: November 13, 2024 Team Status: Inactive Member Role/Relationship Status Dates Dr. Kandace Katz MD Primary Care Provider Active Start: November 13, 2024 End: November 13, 2024 Maxx MARTINEZ PA Attending Provider Active Sta rt: November 13, 2024 End: November 13, 2024 JUAN Snow Referring Provider Active Sta rt: November 13, 2024 End: November 13, 2024 Team Status: Inactive Member Role/Relationship Status Dates Dr. Kandace Katz MD Primary Care Provider Active Start: December 26, 2024 End: December 26, 2024 Dr. Kandace Katz MD Referring Provider Active Start: December 26, 2024 End: December 26, 2024 Dr. Roderick Tang DO Attending Provider Active Start: December 26, 2024 End: December 26, 2024 Team Status: Active Member Role/Relationship Status Dates Dr. Kandace Katz MD Primary Care Provider Active Start: December 26, 2024 End: December 26, 2024 Dr. Sandro Bermudez MD Attending Provider Active S tart: December 26, 2024 End: December 26, 2024 Dr. Sylvester Vasquez MD Referring Provider Active Start: December 26, 2024 End: December 26, 2024 Team Status: Active Member Role/Relationship Status Dates Dr. Kandace Katz MD Primary Care Provider Active Start: December 26, 2024 Dr. Kandace Katz MD Referring Provider Active Start: December 26, 2024 Dr. Roderick Tang DO Attending Provider Active Start: December 26, 2024 Dr. Roderick Tang DO Other Provider Active St art: December 26, 2024 Team Status: Inactive Member Role/Relationship Status Dates Dr. Kandace Katz MD Primary Care Provider Active Start: January 29, 2025 End: January 29, 2025 Dr. Kandace Katz MD Referring Provider Active Start: January 29, 2025 End: January 29, 2025 Dr. Eric Sampson MD Attending Provider Active Start: January 29, 2025 End: January 29, 2025 Team Status: Inactive Member Role/Relationship Status Dates Dr. Kandace Katz MD Primary Care Provider Active Start: January 31, 2025 End: January 31, 2025 Dr. Kandace Katz MD Attending Provider Active Start: January 31, 2025 End: January 31, 2025 FOR RECORDS PERTAINING TO PATIENTS WHO ARE [...] BE BASED ON THE PRIMARY CLINICAL RECORDS. [employer] provides no warranty or guarantee of the accuracy or completeness of information in this document.
== END | disposition home or self-care (01) ==
PROVIDERS: PCP Family Medicine; Referring Provider Internal Medicine; Visit Provider Internal Medicine
DX: K76.0 Fatty (change of) liver, not elsewhere classified (principal); K22.70 Barrett's esophagus without dysplasia; R10.9 Unspecified abdominal pain; K21.9 Gastro-esophageal reflux disease without esophagitis
CPT/HCPCS: 76705; 76981